=== PATIENT | female | born 1990 | race Caucasian/White ===

== ENCOUNTER 2022-12-25 07:33 | Outpatient (OUT) | payer OTHER, SELFPAY ==
[2022-12-25 10:50] LABS: Glucose 50 mg/dL (74-106)
== END 2022-12-25 07:34 ==
DX: E16.2 Hypoglycemia, unspecified (principal)
CPT/HCPCS: 36415; 82947

== ENCOUNTER 2023-03-15 08:14 | Emergency (ER) | payer OTHER, SELFPAY ==
[2023-03-15] VITALS (16 sets, daily range): BP systolic 120–134; BP diastolic 73–89; PULSE 96–176; RESP 12–29; TEMP 36.4; O2SAT 95–97; BMI 24.2
--- NOTE | 2023-03-15 08:28 | ECG_ITS ---
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
[2023-03-15] MEDS: LORAZEPAM 2 MG/ML 1 ML VIAL IV (08:46)
--- NOTE | 2023-03-15 09:00 | ED_ITS ---
HPI - General Adult General Chief complaint: Seizure Stated complaint: SEIZURE Time Seen by Provider: 03/15/23 08:16 Source: patient and other (Fiance) Source information: patient and fiance Mode of arrival: ambulance History of Present Illness HPI narrative: 32-year-old female with self-reported history of seizure to the emergency department with chief complaint of seizure episodes occurring this morning. Patient reports she has were breakthrough seizures. She takes Keppra 750 mg twice a day and intranasal medazepam as needed for seizures. Her fianc? helps provide history. He reports that this morning the patient seemed down and depressed like something was bothering her. She's been dealing with increased family stressors. The patient then began to have tensing movements of her body. She is brought to the emergency department for evaluation for seizure. She did not lose consciousness during these episodes. There is no shaking. She is able to ambulate during the episode. Her boyfriend reports that these happening with increasing frequency. They treated with her intranasal Midazolam but have run out. Related Data Home Medications Medication Instructions Recorded Confirmed acarbose 25 mg tablet 25 mg PO QDAY PRN hypoglycemia 03/15/23 03/15/23 amitriptyline 25 mg tablet 25 mg PO QDAY PRN nerve pain 03/15/23 03/15/23 cholecalciferol (vitamin D3) 10 2,000 unit PO QDAY 03/15/23 03/15/23 mcg (400 unit) tablet (Vitamin D3) dexmethylphenidate 20 mg 20 mg PO QDAY 03/15/23 03/15/23 capsule,extended release -64 fremanezumab-vfrm 225 mg/1.5 mL 225 mg subcut .qmonth 03/15/23 03/15/23 subcutaneous syringe (Ajovy Syringe) levetiracetam 500 mg tablet 750 mg PO Q12H 03/15/23 03/15/23 midazolam 5 mg/spray (0.1 mL) 1 spray intranasal BID PRN seizures 03/15/23 03/15/23 nasal spray (Nayzilam) Previous Rx's Medication Instructions Recorded midazolam 5 mg/spray (0.1 mL) 5 mg (0.1 mL) intranasal ONCE PRN 03/15/23 nasal spray (Nayzilam) Seizure #2 ea Allergies Allergy/AdvReac Type Severity Reaction Status Date / Time latex Allergy Intermediate Verified 03/15/23 08:34 NSAIDS (Non-Steroidal AdvReac Intermediate Verified 03/15/23 08:17 Anti-Inflamma Review of Systems ROS Status of ROS 10 or more systems reviewed and unremarkable except as noted in history and below [facility] Social History Smoking status: Former smoker Exam Narrative Exam Narrative: VITALS: I have reviewed the triage vital signs. GENERAL: Tearful adult female with tonic contractions at irregular frequency in the UE and LE. NEURO: Alert and oriented x4. Moves all extremities. Face is symmetric and expressive. Cranial nerves II through XII are grossly intact by testing. Motor strength is grossly intact bilaterally. Sensation is grossly intact in the upper and lower extremities bilaterally. EYES: PERRL. No scleral icterus or conjunctival injection. No discharge. HENT: Normocephalic, atraumatic. Hearing is grossly intact. Nares grossly patent and without discharge. Mucous membranes moist. NECK: No JVD. Patient moves neck without restriction. CARDIO: Rhythm regular. Normal rate. No murmur, rub, or gallop. Pulses equal bilaterally in the upper and lower extremity. No lower extremity edema. PULM: Lungs clear to auscultation in all farrell. No wheezes, rales, or rhonchi. No conversational dyspnea. No splinting, stridor, or accessory muscle use. GI/: Abdomen is soft and non-tender. Normoactive bowel sounds. EXTREMITIES: Symmetric muscle bulk. No joint swelling. No clubbing, cyanosis, or deformity. SKIN: Warm and dry. Normal turgor. No rash or lesions appreciated. PSYCH: Anxious, tearful Constitutional Vital Signs, click to edit/add: Last Vital Signs Temp 97.6 F 03/15/23 08:18 Pulse 113 H 03/15/23 09:30 Resp 24 03/15/23 09:30 BP 130/79 03/15/23 09:30 Pulse Ox 95 03/15/23 09:00 O2 Del Method Room Air 03/15/23 08:18 Course Vital Signs Vital signs: Vital Signs Temperature 97.6 F 03/15/23 08:18 Pulse Rate 124 H 03/15/23 08:18 Respiratory Rate 18 03/15/23 08:18 Pulse Oximetry 97 03/15/23 08:18 Oxygen Delivery Method Room Air 03/15/23 08:18 Temperature 97.6 F 03/15/23 08:18 Pulse Rate 113 H 03/15/23 09:30 Respiratory Rate 24 03/15/23 09:30 Blood Pressure 130/79 03/15/23 09:30 Pulse Oximetry 95 03/15/23 09:00 Oxygen Delivery Method Room Air 03/15/23 08:18 Medical Decision Making MDM Narrative Medical decision making narrative: MDM Data External documents reviewed: [facility] Neu[facility] Notes reviewed. OAR[facility] Report Reviewed. My EKG interpretation: As below My CT interpretation: Not applicable My X-ray interpretation: Not applicable My Ultrasound interpretation: Not applicable Decision rules/scores evaluated: Not applicable Discussed with: Not applicable Treatment and Disposition ED Course: 32-year-old female with reported history of seizures on Route to the emergency department with chief complaint of seizure-like activity. Vitals are stable, the patient is afebrile. Patient is witnessed to be having the seizure- like activity on my initial evaluation. Activity witnessed is not consistent with epilepsy seizures. Patient is able to answer questions appropriately is alert and oriented ?4 and is able to follow commands. When she is distracted the tensing movements ceased. I treated her anxiety/emotional distress with the episodes ceased. Basic labs to be ordered. She denies . Patient agrees with this plan. Christy? agrees with this plan. They asked for a refill of her Nayzilam. Blood work reviewed and noted. No major abnormalities. EKG without evidence of arrhythmia or ischemia. The patient rapidly returned to her baseline after the Ativan. She remained at her baseline throughout her Emergency Department stay. Again I do not think this represents an epileptic seizure. Discussed with the patient and her fianc?. She'll follow-up with her neurologist at [facility]. Refill given for rescue medication. Discussed seizure precautions at length. Discussed that she should not drive or operate machinery until cleared to do so by neurology given her self reported increase in seizures. Return precautions were discussed. All questions were answered. The patient was discharged home. Shared decision making: As above Code status: Not addressed during this visit Medical Records Medical records reviewed: Yes I reviewed the patient's medical records Lab Data Lab results reviewed: Yes I reviewed the patient's lab results Labs: Lab Results 03/15/23 03/15/23 Range/Units 08:30 09:25 WBC 8.0 (4.0-11.0) 10^3/uL RBC 4.74 (4.20-5.40) 10^6/uL Hgb 15.2 (12.0-16.0) g/dL Hct 45.5 (36.0-48.0) % MCV 96.0 (81.0-99.0) fL MCH 32.1 (26.7-34.0) pg MCHC 33.4 (29.9-35.2) g/dL RDW 12.5 (11.0-15.0) % Plt Count 169 (150-450) 10^3/uL MPV 11.6 (9.5-13.5) fL Neut % (Auto) 39.2 L (43.0-75.0) % Lymph % (Auto) 51.7 (20.5-60.0) % [place] % (Auto) 6.2 (1.7-12.0) % Eos % (Auto) 1.9 (0.9-7.0) % Baso % (Auto) 0.9 (0.2-2.0) % Neut # (Auto) 3.2 (1.4-6.5) 10^3/uL Lymph # (Auto) 4.2 H (1.2-3.8) 10^3/uL [place] # (Auto) 0.5 (0.3-0.8) 10^3/uL Eos # (Auto) 0.2 (0.0-0.7) 10^3/uL Baso # (Auto) 0.1 (0.0-0.1) 10^3/uL Abs Immat Gran (auto) 0.01 (0.00-0.03) 10^3/uL Imm/Tot Granulo (auto) 0.1 (0.0-0.5) % Sodium 137 (136-145) mmol/L Potassium 3.9 (3.5-5.1) mmol/L Chloride 102 (98-107) mmol/L Carbon Dioxide 27.5 (21.0-32.0) mmol/L Anion Gap 11.4 BUN 8.0 (7.0-18.0) mg/dL Creatinine 0.62 (0.55-1.02) mg/dL Est GFR ( Amer) >60 (>=60) Est GFR (Non-Af Amer) >60 (>=60) BUN/Creatinine Ratio 12.9 Glucose 89 (74-106) mg/dL Calcium 9.2 (8.5-10.1) mg/dL Magnesium 1.8 (1.8-2.4) mg/dL Total Bilirubin 0.4 (0.2-1.0) mg/dL AST 37 (15-37) U/L ALT 48 (14-59) U/L Alkaline Phosphatase 68 (46-116) U/L Total Protein 7.0 (6.4-8.2) g/dL Albumin 3.9 (3.4-5.0) g/dL Globulin 3.1 g/dL Albumin/Globulin Ratio 1.3 Urine Color Lt. yellow (YELLOW) Urine Clarity Clear (CLEAR) Urine pH 7.5 (5.0-9.0) Ur Specific [place] 1.010 (1.005-1.025) Urine Protein Negative (NEG/TRACE) mg/dL Urine Glucose (UA) Negative (NEGATIVE) mg/dL Urine Ketones Negative (NEGATIVE) mg/dL Urine Occult Blood Negative (NEGATIVE) Urine Nitrite Negative (NEGATIVE) Urine Bilirubin Negative (NEGATIVE) Urine Urobilinogen 0.2 (0.2-1.0) EU/dL Ur Leukocyte Esterase Negative (NEGATIVE) Urine Opiates Screen Negative (NEGATIVE) Ur Buprenorphine Scrn Negative (NEGATIVE) Ur Oxycodone Screen Negative (NEGATIVE) Urine Methadone Screen Negative (NEGATIVE) Ur Propoxyphene Screen Negative (NEGATIVE) Ur Barbiturates Screen Negative (NEGATIVE) U Tricyclic Antidepress Negative (NEGATIVE) Ur Phencyclidine Scrn Negative (NEGATIVE) Ur Amphetamines Screen Negative (NEGATIVE) U Methamphetamines Scrn Negative (NEGATIVE) U Benzodiazepines Scrn Negative (NEGATIVE) Urine Cocaine Screen Negative (NEGATIVE) U Cannabinoids Screen Negative (NEGATIVE) ECG Data Attestation: I personally reviewed and interpreted this ECG as follows: (Sinus tachycardia rate of 101. QTC normal. No ST segment changes.) Discharge Plan Discharge Chief Complaint: Seizure Clinical Impression: Generalized seizure Patient Disposition: Home, Self-Care Time of Disposition Decision: 09:58 Condition: Good Mode of Transportation: Private Vehicle Prescriptions / Home Meds: New Nayzilam 5 mg/spray (0.1 mL) spray,non-aerosol 5 mg intranasal ONCE MDD 2 doses PRN (Reason: Seizure) Qty: 2 1RF No Action acarbose 25 mg tablet 25 mg PO QDAY PRN (Reason: hypoglycemia) amitriptyline 25 mg tablet 25 mg PO QDAY PRN (Reason: nerve pain ) cholecalciferol (vitamin D3) [Vitamin D3] 10 mcg (400 unit) tablet 2,000 unit PO QDAY dexmethylphenidate 20 mg capsule,ER biphasic 50-50 20 mg PO QDAY Ajovy Syringe 225 mg/1.5 mL syringe 225 mg SUBCUT .qmonth levetiracetam 500 mg tablet 750 mg PO Q12H Nayzilam 5 mg/spray (0.1 mL) spray,non-aerosol 1 spray INTRANASAL BID PRN (Reason: seizures) Print Language: Romanian Instructions: Recurrent Seizures in Adults (ED) Additional Instructions: Call the office of your neurologist to arrange for follow-up. Discussed with them you're increasing frequency of seizure-like activity. Use your rescue medication as prescribed. Do not drive or operate heavy machinery until you are cleared by your neurologist. Avoid activity which could become dangerous if you suddenly lost consciousness such as bathing alone, swimming alone, climbing ladders etc. Stand Alone Forms: Portal Instructions Referrals: Physician,Non-Staff, MD [Primary Care Provider] - 1 week (YOUR NEUROLOGIST AT [facility])
[2023-03-15 09:08] LABS: Basophils Absolute Auto 0.1 10^3/uL (0.0-0.1); Basophils Percent Auto 0.9 % (0.2-2.0); Eosinophils Absolute Auto 0.2 10^3/uL (0.0-0.7); Eosinophils Percent Auto 1.9 % (0.9-7.0); Hematocrit 45.5 % (36.0-48.0); Hemoglobin 15.2 g/dL (12.0-16.0); Immature Granulocytes Abs Auto 0.01 10^3/uL (0.00-0.03); Immature Granulocytes Pct Auto 0.1 % (0.0-0.5); Lymphocytes Absolute Auto 4.2 10^3/uL (1.2-3.8); Lymphocytes Percent Auto 51.7 % (20.5-60.0); Mean Corpuscular HGB Conc 33.4 g/dL (29.9-35.2); Mean Corpuscular Hemoglobin 32.1 pg (26.7-34.0); Mean Platelet Volume 11.6 fL (9.5-13.5); Monocytes Absolute Auto 0.5 10^3/uL (0.3-0.8); Monocytes Percent Auto 6.2 % (1.7-12.0); Neutrophils Absolute Auto 3.2 10^3/uL (1.4-6.5); Neutrophils Percent Auto 39.2 % (43.0-75.0); Platelet Count 169 10^3/uL (150-450); Red Blood Count 4.74 10^6/uL (4.20-5.40); Red Cell Distribution Width 12.5 % (11.0-15.0)
[2023-03-15 09:30] LABS: Alanine Aminotransferase 48 U/L (14-59); Albumin Globulin Ratio 1.3; Albumin Level 3.9 g/dL (3.4-5.0); Alkaline Phosphatase 68 U/L (46-116); Anion Gap 11.4; Aspartate Amino Transferase 37 U/L (15-37); BUN Creatinine Ratio 12.9; Bilirubin Total 0.4 mg/dL (0.2-1.0); Calcium 9.2 mg/dL (8.5-10.1); Carbon Dioxide 27.5 mmol/L (21.0-32.0); Chloride 102 mmol/L (98-107); Estimated GFR (African America >60 (>=60); Estimated GFR (Non-African Ame >60 (>=60); Globulin 3.1 g/dL; Glucose 89 mg/dL (74-106); Magnesium 1.8 mg/dL (1.8-2.4); Potassium 3.9 mmol/L (3.5-5.1); Sodium 137 mmol/L (136-145)
[2023-03-15 09:31] LABS: Bilirubin Urine NEGATIVE (NEGATIVE); Blood Urine NEGATIVE (NEGATIVE); Clarity Urine CLEAR (CLEAR); Color Urine LT. YELLOW (YELLOW); Glucose Urine UA NEGATIVE (NEGATIVE); Ketones Urine NEGATIVE (NEGATIVE); Leukocyte Esterase Urine NEGATIVE (NEGATIVE); Nitrite Urine NEGATIVE (NEGATIVE); Protein Urine NEGATIVE (NEG/TRACE); Urobilinogen Urine 0.2 EU/dL (0.2-1.0); pH Urine 7.5 (5.0-9.0)
[2023-03-15 09:43] LABS: Amphetamine Screen Urine NEGATIVE (NEGATIVE); Benzodiazepines Screen Urine NEGATIVE (NEGATIVE); Cannabinoid Screen Urine NEGATIVE (NEGATIVE); Cocaine Screen Urine NEGATIVE (NEGATIVE); Methadone Screen Urine NEGATIVE (NEGATIVE); Methamphetamines Screen Urine NEGATIVE (NEGATIVE); Opiate Screen Urine NEGATIVE (NEGATIVE); Phencyclidine Screen Urine NEGATIVE (NEGATIVE); Tricyclic Antidepressant Urine NEGATIVE (NEGATIVE)
[2023-03-15 09:44] LABS: Barbiturates Screen Urine NEGATIVE (NEGATIVE); Buprenorphine Screen Urine NEGATIVE (NEGATIVE); Oxycodone Screen Urine NEGATIVE (NEGATIVE)
== END 2023-03-15 10:15 | disposition home or self-care (01) ==
PROVIDERS: Emergency Provider Student in an Organized Health Care Education/Training Program
DX: R56.9 Unspecified convulsions (principal); Z79.899 Other long term (current) drug therapy; Z87.891 Personal history of nicotine dependence
CPT/HCPCS: 36415; 80053; 80307; 81003; 83735; 85025; 93005; 96374; 99284

== ENCOUNTER 2023-05-05 14:05 | Emergency (ER) | payer OTHER, SELFPAY ==
[2023-05-05 14:19] VITALS: BP 125/80; PULSE 85; RESP 14; TEMP 37.1; O2SAT 95; BMI 24.9
[2023-05-05 14:23] VITALS: O2SAT 96
--- NOTE | 2023-05-05 15:10 | PC.NURSE ---
no resp distress observed
--- NOTE | 2023-05-05 15:13 | ED_ITS ---
HPI - URI/Sore Throat General Chief Complaint: Upper Respiratory Infection Stated Complaint: FLU LIKE SYMPTOMS Time Seen by Provider: 05/05/23 14:22 Source: patient History of Present Illness HPI Narrative: patient is a 32-year-old female presents to the emergency department for a two week history of cold symptoms. Patient states she has had nasal congestion, bilateral ear pain, body aches. She states in the last several days the congestion is moving into her chest with a productive cough. She has had no objective fevers, vomiting. She tested negative for Covid at home. sshe has been using hsyb-iei-vyolhjd medications without improvement. She is not concerned for . Related Data Home Medications Medication Instructions Recorded Confirmed acarbose 25 mg tablet 25 mg PO QDAY PRN hypoglycemia 03/15/23 03/15/23 amitriptyline 25 mg tablet 25 mg PO QDAY PRN nerve pain 03/15/23 03/15/23 cholecalciferol (vitamin D3) 10 2,000 unit PO QDAY 03/15/23 03/15/23 mcg (400 unit) tablet (Vitamin D3) dexmethylphenidate 20 mg 20 mg PO QDAY 03/15/23 03/15/23 capsule,extended release [id number] fremanezumab-vfrm 225 mg/1.5 mL 225 mg subcut .qmonth 03/15/23 03/15/23 subcutaneous syringe (Ajovy Syringe) levetiracetam 500 mg tablet 750 mg PO Q12H 03/15/23 03/15/23 midazolam 5 mg/spray (0.1 mL) 1 spray intranasal BID PRN seizures 03/15/23 03/15/23 nasal spray (Nayzilam) Previous Rx's Medication Instructions Recorded midazolam 5 mg/spray (0.1 mL) 5 mg (0.1 mL) intranasal ONCE PRN 03/15/23 nasal spray (Nayzilam) Seizure #2 ea azithromycin 250 mg tablet See Rx Instructions PO .COMPLEX #6 05/05/23 (Zithromax Z-Isaac) tabs qlgnrhsrygggqiy-cctssqsuhumyaei-RN 10 ml PO Q6H PRN cold symptoms 05/05/23 2 mg-30 mg-10 mg/5 mL oral syrup #200 mL (Bromfed DM) Allergies Allergy/AdvReac Type Severity Reaction Status Date / Time latex Allergy Intermediate Verified 03/15/23 08:34 NSAIDS (Non-Steroidal AdvReac Intermediate Verified 03/15/23 08:17 Anti-Inflamma Review of Systems ROS Constitutional Denies: fever or chills Ears, nose, mouth, and throat Reports: nasal congestion; Denies: throat pain Cardiovascular Denies: chest pain Respiratory Reports: cough and chest congestion; Denies: shortness of breath Gastrointestinal Denies: nausea or vomiting Musculoskeletal Denies: back pain Integumentary/Breast Denies: rash PFSH PFS Social History Smoking status: Former smoker Exam Narrative Exam Narrative: Gen.: Awake, alert, in no distress Head: Normocephalic, atraumatic ENT: Moist mucous membranes, bilateral tympanic membranes bulging with no erythema or injection Respiratory: No respiratory distress, lungs clear bilaterally; no wheezing or rhonchi Cardio: Regular rate and rhythm Extremities: Moves extremities equally Psych: Normal mood and affect Neuro: No focal neuro deficit Skin: Warm, dry, intact Constitutional Vital Signs, click to edit/add: Last Vital Signs Temp 98.8 F 05/05/23 14:19 Pulse 85 05/05/23 14:19 Resp 14 05/05/23 14:19 BP 125/80 05/05/23 14:19 Pulse Ox 96 05/05/23 14:23 O2 Del Method Room Air 05/05/23 15:10 Course Vital Signs Vital signs: Vital Signs Temperature 98.8 F 05/05/23 14:19 Pulse Rate 85 05/05/23 14:19 Respiratory Rate 14 05/05/23 14:19 Blood Pressure 125/80 05/05/23 14:19 Pulse Oximetry 95 05/05/23 14:19 Oxygen Delivery Method Room Air 05/05/23 14:19 Temperature 98.8 F 05/05/23 14:19 Pulse Rate 85 05/05/23 14:19 Respiratory Rate 14 05/05/23 14:19 Blood Pressure 125/80 05/05/23 14:19 Pulse Oximetry 96 05/05/23 14:23 Oxygen Delivery Method Room Air 05/05/23 15:10 MDM - URI/Sore Throat MDM Narrative Medical decision making narrative: patient declined another Covid test in the Emergency Room, no indication for chest x-ray at this time she has clear lung sounds and stable vital signs and will be treated with antibiotics based on the duration of her symptoms. Bromfed- DM and Z-Isaac given for home. Follow-up with PCP and return to the Emergency Room if symptoms change or worsen Medical Records Attestation: I reviewed the patient's medical records. Discharge Plan Discharge Chief Complaint: Upper Respiratory Infection Clinical Impression: Upper respiratory infection Patient Disposition: Home, Self-Care Time of Disposition Decision: 15:11 Condition: Good Prescriptions / Home Meds: New azithromycin [Zithromax Z-Isaac] 250 mg tablet See Rx Instructions .ROUTE .COMPLEX Qty: 6 0RF Rx Instructions: For 250 mg dose pack: take 500 mg today (day 1), then 250 mg for 4 days (days 2-5) pgtpgfewbcabjoa-pjmkhznsh-DJ [Bromfed DM] 2-30-10 mg/5 mL syrup 10 ml PO Q6H PRN (Reason: cold symptoms) Qty: 200 0RF No Action acarbose 25 mg tablet 25 mg PO QDAY PRN (Reason: hypoglycemia) amitriptyline 25 mg tablet 25 mg PO QDAY PRN (Reason: nerve pain ) cholecalciferol (vitamin D3) [Vitamin D3] 10 mcg (400 unit) tablet 2,000 unit PO QDAY dexmethylphenidate 20 mg capsule,ER biphasic 50-50 20 mg PO QDAY Ajovy Syringe 225 mg/1.5 mL syringe 225 mg SUBCUT .qmonth levetiracetam 500 mg tablet 750 mg PO Q12H Nayzilam 5 mg/spray (0.1 mL) spray,non-aerosol 1 spray INTRANASAL BID PRN (Reason: seizures) Nayzilam 5 mg/spray (0.1 mL) spray,non-aerosol 5 mg intranasal ONCE MDD 2 doses PRN (Reason: Seizure) Qty: 2 1RF Instructions: Upper Respiratory Infection (ED) Stand Alone Forms: Portal Instructions Referrals: Physician,Non-Staff, MD [Primary Care Provider] - 1 week
== END 2023-05-05 15:24 | disposition home or self-care (01) ==
PROVIDERS: Emergency Provider Emergency Medicine
DX: J06.9 Acute upper respiratory infection, unspecified (principal); Z79.899 Other long term (current) drug therapy; Z87.891 Personal history of nicotine dependence
CPT/HCPCS: 99283

== ENCOUNTER 2023-05-12 15:21 | Emergency (ER) | payer OTHER, SELFPAY ==
[2023-05-12 15:39] VITALS: BP 110/70; PULSE 88; RESP 20; TEMP 37.2; O2SAT 96; BMI 25.0
--- NOTE | 2023-05-12 15:53 | ED.URI1 ---
HPI - URI/Sore Throat General Chief Complaint: Upper Respiratory Infection Stated Complaint: flu like symptoms, seizure w/ hx Time Seen by Provider: 05/12/23 15:49 Source: patient Limitations: no limitations History of Present Illness HPI Narrative: patient is a 32-year-old female who returns to the emergency department for continued nasal drainage, sore throat. She was seen in this emergency department one week ago by myself, she is placed on a Z-Isaac and Bromfed-DM. She has had two weeks of symptoms total. She states when she started the medication she had improvement, but her symptoms have returned now. She reports postnasal drip causing a sore throat. She has had no fevers, vomiting. She reports body aches. No concern for . She has not followed up with her primary care provider at any point in her two week illness. Related Data Home Medications Medication Instructions Recorded Confirmed acarbose 25 mg tablet 25 mg PO QDAY PRN hypoglycemia 03/15/23 03/15/23 amitriptyline 25 mg tablet 25 mg PO QDAY PRN nerve pain 03/15/23 03/15/23 cholecalciferol (vitamin D3) 10 2,000 unit PO QDAY 03/15/23 03/15/23 mcg (400 unit) tablet (Vitamin D3) dexmethylphenidate 20 mg 20 mg PO QDAY 03/15/23 03/15/23 capsule,extended release [id number] fremanezumab-vfrm 225 mg/1.5 mL 225 mg subcut .qmonth 03/15/23 03/15/23 subcutaneous syringe (Ajovy Syringe) levetiracetam 500 mg tablet 750 mg PO Q12H 03/15/23 03/15/23 midazolam 5 mg/spray (0.1 mL) 1 spray intranasal BID PRN seizures 03/15/23 03/15/23 nasal spray (Nayzilam) Previous Rx's Medication Instructions Recorded midazolam 5 mg/spray (0.1 mL) 5 mg (0.1 mL) intranasal ONCE PRN 03/15/23 nasal spray (Nayzilam) Seizure #2 ea azithromycin 250 mg tablet See Rx Instructions PO .COMPLEX #6 05/05/23 (Zithromax Z-Isaac) tabs rgaqkipmvzrcsdr-zemlwylpvbbkhxh-BH 10 ml PO Q6H PRN cold symptoms 05/05/23 2 mg-30 mg-10 mg/5 mL oral syrup #200 mL (Bromfed DM) BMX solution 10 ml PO QID PRN sore throat #150 05/12/23 mL prednisone 20 mg tablet See Rx Instructions .Route 05/12/23 .COMPLEX #12 tabs Allergies Allergy/AdvReac Type Severity Reaction Status Date / Time latex Allergy Intermediate Verified 03/15/23 08:34 NSAIDS (Non-Steroidal AdvReac Intermediate Verified 03/15/23 08:17 Anti-Inflamma Review of Systems ROS Constitutional Denies: fever or chills Ears, nose, mouth, and throat Reports: throat pain, nasal congestion and post nasal drip Cardiovascular Denies: chest pain Respiratory Reports: cough; Denies: shortness of breath Gastrointestinal Denies: nausea, vomiting or diarrhea Musculoskeletal Denies: back pain Integumentary/Breast Denies: rash Neurological Denies: headache PFSH PFSH Social History Smoking status: Never smoker Exam Narrative Exam Narrative: Gen.: Awake, alert, in no distress Head: Normocephalic, atraumatic ENT: Moist mucous membranes, bilateral tympanic membranes clear. Cobblestoning noted in the posterrior pharynx with no pharyngeal erythema, airway widely open and patent. No trismus or drooling. Clear speech. Respiratory: No respiratory distress, lungs clear bilaterally Cardio: Regular rate and rhythm Extremities: Moves extremities equally Psych: Normal mood and affect Neuro: No focal neuro deficit Skin: Warm, dry, intact Constitutional Vital Signs, click to edit/add: Last Vital Signs Temp 99 F 05/12/23 15:39 Pulse 88 05/12/23 15:39 Resp 20 05/12/23 15:39 BP 110/70 05/12/23 15:39 Pulse Ox 96 05/12/23 15:39 O2 Del Method Room Air 05/12/23 15:39 Course Vital Signs Vital signs: Vital Signs Temperature 99 F 05/12/23 15:39 Pulse Rate 88 05/12/23 15:39 Respiratory Rate 20 05/12/23 15:39 Blood Pressure 110/70 05/12/23 15:39 Pulse Oximetry 96 05/12/23 15:39 Oxygen Delivery Method Room Air 05/12/23 15:39 Temperature 99 F 05/12/23 15:39 Pulse Rate 88 05/12/23 15:39 Respiratory Rate 20 05/12/23 15:39 Blood Pressure 110/70 05/12/23 15:39 Pulse Oximetry 96 05/12/23 15:39 Oxygen Delivery Method Room Air 05/12/23 15:39 MDM - URI/Sore Throat MDM Narrative Medical decision making narrative: mono screen is negative, Decadron given in the Emergency Room.no indication for further antibiotic therapy, patient will be placed on steroids for home. BMX solution given for comfort. Follow-up with PCP and return to the Emergency Room if symptoms change or worsen Medical Records Attestation: I reviewed the patient's medical records. Lab Data Attestation: I reviewed the patient's lab results. Labs: Lab Results 05/12/23 Range/Units 16:13 Monoscreen Negative (NEGATIVE) Discharge Plan Discharge Chief Complaint: Upper Respiratory Infection Clinical Impression: Upper respiratory infection Patient Disposition: Home, Self-Care Time of Disposition Decision: 16:58 Condition: Good Prescriptions / Home Meds: New BMX solution 10 ml PO QID PRN (Reason: sore throat) Qty: 150 0RF Rx Instructions: 1:1:1 solution of maalox, viscous lidocaine and benadryl; swish and swallow prednisone 20 mg tablet See Rx Instructions .ROUTE .COMPLEX Qty: 12 0RF Rx Instructions: 3 tabs daily for 2 days, then 2 tabs daily for 2 days, then 1 tab daily for 2 days No Action azithromycin [Zithromax Z-Isaac] 250 mg tablet See Rx Instructions .ROUTE .COMPLEX Qty: 6 0RF Rx Instructions: For 250 mg dose pack: take 500 mg today (day 1), then 250 mg for 4 days (days 2-5) ujxiapsitutzczj-wcwdyjrch-MH [Bromfed DM] 2-30-10 mg/5 mL syrup 10 ml PO Q6H PRN (Reason: cold symptoms) Qty: 200 0RF acarbose 25 mg tablet 25 mg PO QDAY PRN (Reason: hypoglycemia) amitriptyline 25 mg tablet 25 mg PO QDAY PRN (Reason: nerve pain ) cholecalciferol (vitamin D3) [Vitamin D3] 10 mcg (400 unit) tablet 2,000 unit PO QDAY dexmethylphenidate 20 mg capsule,ER biphasic 50-50 20 mg PO QDAY Ajovy Syringe 225 mg/1.5 mL syringe 225 mg SUBCUT .qmonth levetiracetam 500 mg tablet 750 mg PO Q12H Nayzilam 5 mg/spray (0.1 mL) spray,non-aerosol 1 spray INTRANASAL BID PRN (Reason: seizures) Nayzilam 5 mg/spray (0.1 mL) spray,non-aerosol 5 mg intranasal ONCE MDD 2 doses PRN (Reason: Seizure) Qty: 2 1RF Instructions: Pharyngitis (ED), Upper Respiratory Infection (ED) Stand Alone Forms: Portal Instructions Referrals: Physician,Non-Staff, MD [Primary Care Provider] - 1 week
[2023-05-12] MEDS: DEXAMETHASONE SOD PHOS 10 MG/ML VIAL PO (16:00)
[2023-05-12 16:43] LABS: Mono Screen NEGATIVE (NEGATIVE)
== END 2023-05-12 17:11 | disposition home or self-care (01) ==
PROVIDERS: Physician Assistant; Emergency Provider Emergency Medicine
DX: J06.9 Acute upper respiratory infection, unspecified (principal); Z79.899 Other long term (current) drug therapy
CPT/HCPCS: 86308; 99283; J1100

== ENCOUNTER 2023-06-25 06:20 | Emergency (ER) | payer OTHER, SELFPAY ==
[2023-06-25 06:22] VITALS: BP 118/67; PULSE 82; RESP 16; TEMP 36.6; O2SAT 96; BMI 25.0
[2023-06-25 06:27] VITALS: RESP 18
--- NOTE | 2023-06-25 06:34 | ED.EAR1 ---
HPI - Ear Problem General Chief complaint: Ear Stated complaint: ear pain Time Seen by Provider: 06/25/23 06:28 Source: patient Mode of arrival: walk-in Limitations: no limitations History of Present Illness HPI Narrative: 32-year-old female presents for right ear pain. She's had some cold symptoms recently but then she's had right ear pain and it got worse tonight. No drainage or trauma. She doesn't complain of left ear pain or sore throat. The pain is moderate and continuous. No history of fever Related Data Home Medications Medication Instructions Recorded Confirmed acarbose 25 mg tablet 25 mg PO QDAY PRN hypoglycemia 03/15/23 03/15/23 amitriptyline 25 mg tablet 25 mg PO QDAY PRN nerve pain 03/15/23 03/15/23 cholecalciferol (vitamin D3) 10 2,000 unit PO QDAY 03/15/23 03/15/23 mcg (400 unit) tablet (Vitamin D3) dexmethylphenidate 20 mg 20 mg PO QDAY 03/15/23 03/15/23 capsule,extended release [id number] fremanezumab-vfrm 225 mg/1.5 mL 225 mg subcut .qmonth 03/15/23 06/25/23 subcutaneous syringe (Ajovy Syringe) levetiracetam 500 mg tablet 750 mg PO Q12H 03/15/23 06/25/23 midazolam 5 mg/spray (0.1 mL) 1 spray intranasal BID PRN seizures 03/15/23 06/25/23 nasal spray (Nayzilam) Previous Rx's Medication Instructions Recorded midazolam 5 mg/spray (0.1 mL) 5 mg (0.1 mL) intranasal ONCE PRN 03/15/23 nasal spray (Nayzilam) Seizure #2 ea BMX solution 10 ml PO QID PRN sore throat #150 05/12/23 mL amoxicillin 500 mg capsule 500 mg PO TID 10 days #30 caps 06/25/23 loratadine 5 mg-pseudoephedrine ER 1 tab PO Q12H PRN nasal congestion 06/25/23 120 mg tablet,extended #20 tabs release,12hr (Claritin-D 12 Hour) Allergies Allergy/AdvReac Type Severity Reaction Status Date / Time latex Allergy Intermediate Verified 03/15/23 08:34 NSAIDS (Non-Steroidal AdvReac Intermediate Verified 03/15/23 08:17 Anti-Inflamma Review of Systems ROS Narrative A ten point review of systems is negative except as noted above. PFSH PFSH Social History Smoking status: Never smoker Exam Narrative Exam Narrative: Nurses note and vital signs reviewed and patient is not hypoxic. General: The patient appears well and in no apparent distress. Patient is resting comfortably on cart. Skin: Warm, dry, no pallor noted. There is no rash noted. Head: Normocephalic, atraumatic Eye: Normal conjunctiva, no drainage, EOMI. PERRL Ears, Nose, Mouth, and Throat: oral mucosa is moist. Nares patent. left tympanic membrane and external canal are normal. Right external canal is normal. The right tympanic membrane is dull with fluid present behind it. Tympanic membrane intact. Cardiovascular: Regular Rate and Rhythm Respiratory: Patient is in no distress, no accessory muscle use, lungs are clear to auscultation, no wheezing, rales or rhonchi Back: non-tender GI: soft and nontender Musculoskeletal: The patient has no evidence of calf tenderness, no pitting edema, symmetrical pulses noted bilaterally Neurological: A&O, normal speech Psychiatric: Cooperative Constitutional Vital Signs, click to edit/add: Last Vital Signs Temp 97.9 F 06/25/23 06:22 Pulse 82 06/25/23 06:22 Resp 18 06/25/23 06:27 BP 118/67 06/25/23 06:22 Pulse Ox 96 06/25/23 06:22 O2 Del Method Room Air 06/25/23 06:22 Course Vital Signs Vital signs: Vital Signs Temperature 97.9 F 06/25/23 06:22 Pulse Rate 82 06/25/23 06:22 Respiratory Rate 16 06/25/23 06:22 Blood Pressure 118/67 06/25/23 06:22 Pulse Oximetry 96 06/25/23 06:22 Oxygen Delivery Method Room Air 06/25/23 06:22 Temperature 97.9 F 06/25/23 06:22 Pulse Rate 82 06/25/23 06:22 Respiratory Rate 18 06/25/23 06:27 Blood Pressure 118/67 06/25/23 06:22 Pulse Oximetry 96 06/25/23 06:22 Oxygen Delivery Method Room Air 06/25/23 06:22 Medical Decision Making MDM Narrative Medical decision making narrative: my clinical impression is that she has otitis media. Treatment diagnosis and follow-up were discussed with the patient. Discharge Plan Discharge Chief Complaint: Ear Clinical Impression: Otitis media, right Patient Disposition: Home, Self-Care Time of Disposition Decision: 06:32 Condition: Good Mode of Transportation: Private Vehicle Prescriptions / Home Meds: New amoxicillin 500 mg capsule 500 mg PO TID 10 Days Qty: 30 0RF Claritin-D 12 Hour 5-120 mg tablet extended release 12 hr 1 tab PO Q12H PRN (Reason: nasal congestion) Qty: 20 0RF No Action acarbose 25 mg tablet 25 mg PO QDAY PRN (Reason: hypoglycemia) amitriptyline 25 mg tablet 25 mg PO QDAY PRN (Reason: nerve pain ) cholecalciferol (vitamin D3) [Vitamin D3] 10 mcg (400 unit) tablet 2,000 unit PO QDAY dexmethylphenidate 20 mg capsule,ER biphasic 50-50 20 mg PO QDAY Ajovy Syringe 225 mg/1.5 mL syringe 225 mg SUBCUT .qmonth levetiracetam 500 mg tablet 750 mg PO Q12H Nayzilam 5 mg/spray (0.1 mL) spray,non-aerosol 1 spray INTRANASAL BID PRN (Reason: seizures) Nayzilam 5 mg/spray (0.1 mL) spray,non-aerosol 5 mg intranasal ONCE MDD 2 doses PRN (Reason: Seizure) Qty: 2 1RF BMX solution 10 ml PO QID PRN (Reason: sore throat) Qty: 150 0RF Rx Instructions: 1:1:1 solution of maalox, viscous lidocaine and benadryl; swish and swallow Instructions: Ear Infection (ED) Stand Alone Forms: Portal Instructions Referrals: Physician,Non-Staff, MD [Primary Care Provider] - 1 week
== END 2023-06-25 06:40 | disposition home or self-care (01) ==
PROVIDERS: Emergency Provider Emergency Medicine
DX: H66.91 Otitis media, unspecified, right ear (principal); Z79.899 Other long term (current) drug therapy
CPT/HCPCS: 99283

== ENCOUNTER 2023-07-11 06:39 | Emergency (ER) | payer OTHER, SELFPAY ==
[2023-07-11 06:51] VITALS: BP 98/65; PULSE 62; RESP 16; TEMP 37; O2SAT 98; BMI 28.3
--- NOTE | 2023-07-11 07:06 | ED.GENADUL1 ---
HPI - General Adult General Chief complaint: Ear Stated complaint: ear infection Time Seen by Provider: 07/11/23 07:02 History of Present Illness HPI narrative: 32-year-old female to the emergency department to complain of right-sided ear pain. Patient reports recent upper respiratory infection. She now has severe right ear pain. She has a history of recurrent otitis media on that side for which she follows with ENT. She denies any fever, sweats, chills. Hearing is intact. Related Data Home Medications Medication Instructions Recorded Confirmed amitriptyline 25 mg tablet 25 mg PO QDAY PRN nerve pain 03/15/23 07/11/23 cholecalciferol (vitamin D3) 10 2,000 unit PO QDAY 03/15/23 07/11/23 mcg (400 unit) tablet (Vitamin D3) dexmethylphenidate 20 mg 20 mg PO QDAY 03/15/23 07/11/23 capsule,extended release [id number] fremanezumab-vfrm 225 mg/1.5 mL 225 mg subcut .qmonth 03/15/23 07/11/23 subcutaneous syringe (Ajovy Syringe) levetiracetam 500 mg tablet 750 mg PO Q12H 03/15/23 07/11/23 Previous Rx's Medication Instructions Recorded amoxicillin 875 mg-potassium 1 tab PO Q12H #14 tabs 07/11/23 clavulanate 125 mg tablet Allergies Allergy/AdvReac Type Severity Reaction Status Date / Time latex Allergy Intermediate Verified 07/11/23 06:53 NSAIDS (Non-Steroidal AdvReac Intermediate Verified 07/11/23 06:53 Anti-Inflamma Review of Systems ROS Status of ROS 10 or more systems reviewed and unremarkable except as noted in history and below [facility] Social History Smoking status: Never smoker Exam Narrative Exam Narrative: VITALS: I have reviewed the triage vital signs.? GENERAL: Well developed, well appearing adult in no acute distress.?? NEURO: Alert and oriented. Moves all extremities. Face is symmetric and expressive.? EYES: PERRL. No scleral icterus or conjunctival injection. No discharge.? HENT: Normocephalic, atraumatic. Hearing is grossly intact. Nares grossly patent and without discharge. Mucous membranes moist. Right tympanic membrane is bulging, erythematous. Left tympanic membrane within normal limits. Both canals within normal limits. NECK: No JVD. Patient moves neck without restriction.? EXTREMITIES: Symmetric muscle bulk. No joint swelling. No clubbing, cyanosis, or deformity.? SKIN: Warm and dry. Normal turgor. No rash or lesions appreciated.? PSYCH: Mood, affect, and interaction is appropriate to the setting. Constitutional Vital Signs, click to edit/add: Last Vital Signs Temp 98.6 F 07/11/23 06:51 Pulse 62 07/11/23 06:51 Resp 16 07/11/23 06:51 BP 98/65 07/11/23 06:51 Pulse Ox 98 07/11/23 06:51 O2 Del Method Room Air 07/11/23 06:51 Course Vital Signs Vital signs: Vital Signs Temperature 98.6 F 07/11/23 06:51 Pulse Rate 62 07/11/23 06:51 Respiratory Rate 16 07/11/23 06:51 Blood Pressure 98/65 07/11/23 06:51 Pulse Oximetry 98 07/11/23 06:51 Oxygen Delivery Method Room Air 07/11/23 06:51 Temperature 98.6 F 07/11/23 06:51 Pulse Rate 62 07/11/23 06:51 Respiratory Rate 16 07/11/23 06:51 Blood Pressure 98/65 07/11/23 06:51 Pulse Oximetry 98 07/11/23 06:51 Oxygen Delivery Method Room Air 07/11/23 06:51 Medical Decision Making [facility] Narrative Medical decision making narrative: 32-year-old female with obvious right-sided otitis media. Vitals stable, the patient is afebrile. No evidence of consultation. Augmentin. Follow-up with doctor. Discharge Plan Discharge Chief Complaint: Ear Clinical Impression: Otitis media, right Patient Disposition: Home, Self-Care Time of Disposition Decision: 07:05 Condition: Good Mode of Transportation: Private Vehicle Prescriptions / Home Meds: New amoxicillin-pot clavulanate 875-125 mg tablet 1 tab PO Q12H Qty: 14 0RF No Action amitriptyline 25 mg tablet 25 mg PO QDAY PRN (Reason: nerve pain ) cholecalciferol (vitamin D3) [Vitamin D3] 10 mcg (400 unit) tablet 2,000 unit PO QDAY dexmethylphenidate 20 mg capsule,ER biphasic 50-50 20 mg PO QDAY Ajovy Syringe 225 mg/1.5 mL syringe 225 mg SUBCUT .qmonth levetiracetam 500 mg tablet 750 mg PO Q12H Print Language: Spanish Instructions: Ear Infection (ED) Additional Instructions: Follow-up with your doctor this week to ensure resolution of symptoms with antibiotics. Stand Alone Forms: Portal Instructions Referrals: Physician,Non-Staff, MD [Primary Care Provider] - 1 week
[2023-07-11] MEDS: AMOXICILLIN/POTASSIUM CLAV 1 TAB TABLET PO (07:16)
== END 2023-07-11 07:19 | disposition home or self-care (01) ==
PROVIDERS: Emergency Provider Student in an Organized Health Care Education/Training Program
DX: H66.91 Otitis media, unspecified, right ear (principal); Z79.899 Other long term (current) drug therapy
CPT/HCPCS: 99283

== ENCOUNTER 2023-08-30 15:37 | Emergency (ER) | payer OTHER, SELFPAY ==
[2023-08-30 15:40] VITALS: BP 122/77; PULSE 98; RESP 20; TEMP 37.6; O2SAT 98; BMI 26.6
--- NOTE | 2023-08-30 15:54 | ED.BACK1 ---
HPI - Back Pain/Injury General Chief Complaint: Back Pain/Injury Stated Complaint: Back Pain Time Seen by Provider: 08/30/23 15:41 Source: patient Mode of arrival: walk-in Limitations: no limitations History of Present Illness HPI Narrative: Patient is a 32-year-old female who presents to the emergency department for increasing low back pain over the last several days. She denies any new mechanism of injury or trauma.She states she has a history of chronic neck and back pain. She was told she may need a cervical fusion, she was not instructed to have surgery on her low back. She reports some pain radiation into the right hip but has no pain radiation to the lower extremities, no peripheral paresthesias or urinary changes. She denies incontinence. She has had a previous hysterectomy. No medications taken prior to arrival. She is apparently allergic to NSAIDs. Related Data Home Medications Medication Instructions Recorded Confirmed amitriptyline 25 mg tablet 25 mg PO QDAY PRN nerve pain 03/15/23 07/11/23 cholecalciferol (vitamin D3) 10 2,000 unit PO QDAY 03/15/23 07/11/23 mcg (400 unit) tablet (Vitamin D3) dexmethylphenidate 20 mg 20 mg PO QDAY 03/15/23 07/11/23 capsule,extended release [id number] fremanezumab-vfrm 225 mg/1.5 mL 225 mg subcut .qmonth 03/15/23 07/11/23 subcutaneous syringe (Ajovy Syringe) levetiracetam 500 mg tablet 750 mg PO Q12H 03/15/23 07/11/23 Previous Rx's Medication Instructions Recorded amoxicillin 875 mg-potassium 1 tab PO Q12H #14 tabs 07/11/23 clavulanate 125 mg tablet methocarbamol 750 mg tablet 750 mg PO TID PRN pain #20 tabs 08/30/23 methylprednisolone 4 mg tablets in See Rx Instructions .Route 08/30/23 a dose pack (Medrol (Isaac)) .COMPLEX #21 ea Allergies Allergy/AdvReac Type Severity Reaction Status Date / Time latex Allergy Intermediate Verified 07/11/23 06:53 NSAIDS (Non-Steroidal AdvReac Intermediate Verified 07/11/23 06:53 Anti-Inflamma Review of Systems ROS Constitutional Denies: fever or chills Ears, nose, mouth, and throat Denies: throat pain or nasal congestion Cardiovascular Denies: chest pain Respiratory Denies: shortness of breath or cough Gastrointestinal Denies: nausea or vomiting Genitourinary Denies: painful urination, urinary frequency or urinary incontinence Musculoskeletal Reports: back pain; Denies: neck pain, extremity pain or extremity swelling Integumentary/Breast Denies: rash Neurological Denies: headache Endocrine Denies: excessive urination Hematologic/Lymphatic Denies: easy bruising or easy bleeding PFSH PFS Social History Smoking status: Never smoker Exam Narrative Exam Narrative: Gen.: Awake, alert, in no distress Head: Normocephalic, atraumatic ENT: Moist mucous membranes Respiratory: No respiratory distress Back: No bony point tenderness of the T-spine or lumbar spine. Diffuse tenderness of the midline spine and paraspinal muscles. No CVA tenderness. No obvious deformity or step-off Extremities: Moves extremities equally, no injuries noted; Normal dorsiflexion and plantarflexion of the lower extremities, no decrease in sensation to the medial thighs, normal hip flexion bilaterally Psych: Normal mood and affect Neuro: No focal neuro deficit Skin: Warm, dry, intact Constitutional Vital Signs, click to edit/add: Last Vital Signs Temp 99.6 F 08/30/23 15:40 Pulse 98 H 08/30/23 15:40 Resp 20 08/30/23 15:40 BP 122/77 08/30/23 15:40 Pulse Ox 98 08/30/23 15:40 Course Vital Signs Vital signs: Vital Signs Temperature 99.6 F 08/30/23 15:40 Pulse Rate 98 H 08/30/23 15:40 Respiratory Rate 20 08/30/23 15:40 Blood Pressure 122/77 08/30/23 15:40 Pulse Oximetry 98 08/30/23 15:40 Temperature 99.6 F 08/30/23 15:40 Pulse Rate 98 H 08/30/23 15:40 Respiratory Rate 20 08/30/23 15:40 Blood Pressure 122/77 08/30/23 15:40 Pulse Oximetry 98 08/30/23 15:40 MDM - Back Pain/Injury MDM Narrative Medical decision making narrative: Patient with no focal Neurodeficits in the ER. Exam is consistent with acute on chronic low back pain, no indication for imaging at this time. Patient treated with Mobridge, Norflex, Solu-Medrol in the ER and discharged home on a Medrol Dosepak and muscle relaxants. Return to the ER if symptoms change or worsen. Rest, ice, gentle stretching. Medical Records Attestation: I reviewed the patient's medical records. Discharge Plan Discharge Chief Complaint: Back Pain/Injury Clinical Impression: Lumbosacral strain Patient Disposition: Home, Self-Care Time of Disposition Decision: 15:51 Condition: Good Prescriptions / Home Meds: New methocarbamol 750 mg tablet 750 mg PO TID PRN (Reason: pain) Qty: 20 0RF methylprednisolone [Medrol (Isaac)] 4 mg tablets,dose pack See Rx Instructions .ROUTE .COMPLEX Qty: 21 0RF Rx Instructions: Taper as directed No Action amoxicillin-pot clavulanate 875-125 mg tablet 1 tab PO Q12H Qty: 14 0RF amitriptyline 25 mg tablet 25 mg PO QDAY PRN (Reason: nerve pain ) cholecalciferol (vitamin D3) [Vitamin D3] 10 mcg (400 unit) tablet 2,000 unit PO QDAY dexmethylphenidate 20 mg capsule,ER biphasic 50-50 20 mg PO QDAY Ajovy Syringe 225 mg/1.5 mL syringe 225 mg SUBCUT .qmonth levetiracetam 500 mg tablet 750 mg PO Q12H Instructions: Back Pain (ED) Stand Alone Forms: Portal Instructions Referrals: Physician,Non-Staff, MD [Primary Care Provider] - 1 week
[2023-08-30] MEDS: HYDROCODONE/ACET 5-325 MG TABLET 1 TAB PO (16:00)
[2023-08-30] MEDS: ORPHENADRINE 60 MG/ 2 ML VIAL IM (16:00)
[2023-08-30] MEDS: METHYLPREDNISOLONE SOD SUCC PF 125 MG/2 ML VIAL IM (16:01)
--- OUTSIDE RECORDS SUMMARY | 2023-08-30 16:12 | XMS_ITS | CCD ---
Author Name Unknown Address [address] [place] [address] Organization [facility] Care Team Providers Care Explosive Operator Grenade Name Role Phone Violet Ross Primary Care Provider TOBIAS HOGAN Attending Unavailable TATA REDDING Referring Unavailable VIOLET ROSS Primary Care Unavail able VENICE CABALLERO Attending Unavailable PABLO HARRISON Consulting Unavailable CANOS VIELKA GREENFIELD Consulting Unavaila ble VIOLET ROSS Primary Care Unavail able JEANNIE GARCIA Attending Unavailable JEANNIE GARCIA Admitting Unavailable JEANNIE GARCIA Consulting Unavailable JEANNIE GARCIA Admitting Unavailable JEANNIE GARCIA Attending Unavailable VIOLET ROSS Primary Care Unavail able None, Physician Primary Care Provider None, Physician Attending Provider Gi BYRNE, Priyanka Campos Attending Vicki ilable Unavailable Primary Care Provider Unavailabl e Cleemput Lorin CERON Primary Care Provider Cleemput Lorin CERON Primary Care Provider [phone] CLEEMPUTLORIN Primary Care Unavailable CLEEMPUTLORIN Primary Care Unavailable ALISSA GIBBS Referring Unavailable SANKET MEDINA Attending Unavailable Cleemput Lorin CERON Primary Care Provider [phone] Cleemput EMAIL MANAGER-MAIL PROCESSING ASSOCIATE, Lorin Shanti Primary Care Unavai lable Cleemput EMAIL MANAGER-MAIL PROCESSING ASSOCIATE, Lorin Shanti Primary Care Unavai lable Cleemput EMAIL MANAGER-MAIL PROCESSING ASSOCIATE, Lorin Shanti Attending Unavai lable Haroon DO, Anson Yi Attending Unavailab le Cleemput EMAIL MANAGER-MAIL PROCESSING ASSOCIATE, Lorin Shanti Primary Care Unavai lable Cleemput EMAIL MANAGER-MAIL PROCESSING ASSOCIATE, Lorin Shanti Primary Care Unavai lable Haroon DO, Anson Yi Attending Unavailab le Gayhart PA-C, Graciela Bartlett Attending Unavai lable Cleemput EMAIL MANAGER-MAIL PROCESSING ASSOCIATE, Lorin Shanti Primary Care Unavai lable Cleemput EMAIL MANAGER-MAIL PROCESSING ASSOCIATE, Lorin Shanti Primary Care Unavai lable Broschak DO, Greg Foster Referring Unavai lable Gayhart PA-C, Graciela Bartlett Attending Unavai lable Cleemput EMAIL MANAGER-MAIL PROCESSING ASSOCIATE, Lorin Shanti Primary Care Unavai lable DeVaul EMAIL MANAGER-MAIL PROCESSING ASSOCIATE, Radha Gilbert Attending Unav ailable Cleemput EMAIL MANAGER-MAIL PROCESSING ASSOCIATE, Lorin Shanti Primary Care Unavai lable Cleemput EMAIL MANAGER-MAIL PROCESSING ASSOCIATE, Lorin Moser Attending Unavai lable Cleemput EMAIL MANAGER-MAIL PROCESSING ASSOCIATE, Lorin Shanti Primary Care Unavai lable Cleemput EMAIL MANAGER-MAIL PROCESSING ASSOCIATE, Lorin Moser Primary Care Unavai lable Haroon DO, Anson Yi Attending Unavailab le Cleemput EMAIL MANAGER-MAIL PROCESSING ASSOCIATE, Lorin Shanti Primary Care Unavai lable Haroon DO, Anson Yi Attending Unavailab le Cleemput EMAIL MANAGER-MAIL PROCESSING ASSOCIATE, Lorin Shanti Primary Care Unavai lable Haroon DO, Anson Yi Attending Unavailab le Cleemput EMAIL MANAGER-MAIL PROCESSING ASSOCIATE, Lorin Shanti Primary Care Unavai lable Haroon DO, Anson Yi Attending Unavailab le Cleemput EMAIL MANAGER-MAIL PROCESSING ASSOCIATE, Lorin Shanti Primary Care Unavai lable Haroon DO, Anson Yi Attending Unavailab le Cleemput EMAIL MANAGER-MAIL PROCESSING ASSOCIATE, Lorin Moser Primary Care Unavai maximole Felipe Rushing Consulting Unavailabl e Haroon DO, Anson Yi Attending Unavailab le Cleemput EMAIL MANAGER-MAIL PROCESSING ASSOCIATE, Lorin Moser Primary Care Unavai lable Cleemput EMAIL MANAGER-MAIL PROCESSING ASSOCIATE, Lorin Moser Attending Unavai lable Cleemput EMAIL MANAGER-MAIL PROCESSING ASSOCIATE, Lorin Shanti Primary Care Unavai lable Cleemput EMAIL MANAGER-MAIL PROCESSING ASSOCIATE, Lorin Shanti Attending Unavai lable Cleemput EMAIL MANAGER-MAIL PROCESSING ASSOCIATE, Lorin Shanti Primary Care Unavai lable Cleemput EMAIL MANAGER-MAIL PROCESSING ASSOCIATE, Lorin Shanti Primary Care Unavai lable Cleemput EMAIL MANAGER-MAIL PROCESSING ASSOCIATE, Lorin Shanti Attending Unavai lable Cleemput EMAIL MANAGER-MAIL PROCESSING ASSOCIATE, Lorin Shanti Primary Care Unavai lable Cleemput EMAIL MANAGER-MAIL PROCESSING ASSOCIATE, Lorin Shanti Attending Unavai lable Cleemput EMAIL MANAGER-MAIL PROCESSING ASSOCIATE, Lorin Shanti Primary Care Unavai lable Cleemput EMAIL MANAGER-MAIL PROCESSING ASSOCIATE, Lorin Shanti Attending Unavai lable Cleemput EMAIL MANAGER-MAIL PROCESSING ASSOCIATE, Lorin Shanti Primary Care Unavai lable Althea LANGLEY, Greg Foster Attending Unavai lable Cleemput EMAIL MANAGER-MAIL PROCESSING ASSOCIATE, Lorin Shanti Primary Care Unavai lable Cleemput EMAIL MANAGER-MAIL PROCESSING ASSOCIATE, Lorin Shanti Attending Unavai lable Cleemput EMAIL MANAGER-MAIL PROCESSING ASSOCIATE, Lorin Shanti Primary Care Unavai lable Leslie PITTS, Opal Arshad Attending Unav ailable Cleemput EMAIL MANAGER-MAIL PROCESSING ASSOCIATE, Lorin Shanti Primary Care Unavai labmarbin Mast MD, Marlen Barron Attending Unava ilable Cleemput EMAIL MANAGER-MAIL PROCESSING ASSOCIATE, Lorin Shanti Attending Unavai lable Cleemput EMAIL MANAGER-MAIL PROCESSING ASSOCIATE, Lorin Shanti Primary Care Unavai lable Cleemput EMAIL MANAGER-MAIL PROCESSING ASSOCIATE, Lorin Shanti Primary Care Unavai lable Cleemput EMAIL MANAGER-MAIL PROCESSING ASSOCIATE, Lorin Shanti Attending Unavai lable Cleemput EMAIL MANAGER-MAIL PROCESSING ASSOCIATE, Lorin Shanti Primary Care Unajune Guzman MD, Yoni Bucio Attending Unavailable Cleemput EMAIL MANAGER-MAIL PROCESSING ASSOCIATE, Lorin Moser Primary Care Unavai DAVIS Gupta Attending Unavailable CONYZACCAROSU Attending Unavailab le MAT, SONIYA Attending Unavailable MAT, ARSLANEBLuke Attending Unavailable Unavailable Unavailable Unavailable Allergies Allergy Classification Reported Allergen(s) Allergy Type Date of Onset Reaction(s) Facility (11 sources) Latex; Translations: [Latex] Propensity to adverse reactions to drug 9 [facility] [employer] Phone: (12 sources) Vancomycin; Translations: [vancomycin] Drug Allergy 9 [employer] Phone: (1 source) No Known Medication Allergies; Translations: [No Known Medication Allergies] Propensity to adverse reactions to drug (disorder) [facility] Repository (6 sources) Diatrizoate Drug Allergy 2 [facility] Work Phone: (7 sources) Iodine; Translations: [iodine] Drug Allergy 2 [facility] (7 sources) NSAIDs; Translations: [NSAIDs] Propensity to adverse reactions to drug 2 [facility] (1 source) Latex Propensity to adverse reactions to drug 2 [facility] (1 source) Gluten; Translations: [Glutens] Propensity to adverse reactions to food (disorder) [facility] Repository (1 source) iodinated radiocontrast dyes; Translations: [iodinated radiocontrast dyes] Propensity to adverse reactions to drug (disorder) [facility] Repository (1 source) natural latex rubber; Translations: [LATEX, NATURAL RUBBER] Propensity to adverse reactions to drug (disorder) 5 [facility] Repository (1 source) NSAIDs; Translations: [NSAIDS (NON-STEROIDAL ANTI-INFLAMMATORY DRUG)] Propensity to adverse reactions to drug (disorder) 4 [facility] Repository Medications Current Medications Medication Drug Class(es) Dates Sig (Normalized) Sig (Original) acetaminophen 325 mg oral tablet (8 sources) Start: 12-09-2021 take 2 tablets by mouth every four hours as needed acetaminophen 325 MG tablet Take 2 tablets by mouth every 4 hours as needed. 0 12/09/2021 Active Start: 12-17-2019 take 1000 mg by mout h every eight hours, then take 4000 mg by mouth every twenty-four hours 1,000 mg, Oral, EVERY 8 HOURS, First dose on Tue12/17/19 at 1530 Maximum dose of acetaminophen is 4000 mg from all sources in 24 hours. Start: 12-17-2019 End: 12-18-2019 acetaminophen (OFIRMEV) infu marquis 1,000 mg acetaminophen 325 mg / butalbital 50 mg / caffeine 40 mg oral tablet (3 sources) Barbiturate, Central Nervous System Stimulant, Methylxanthine take 1 tablet by mouth every four hours as needed for headache zoribydnsg-hnbbqnnozuowg-wffwwnqj (FIORICET, ESGIC) 50-325-40 MG per tablet Take 1 tablet by mouth every 4 hours as needed for Headaches 0 Active amitriptyline hydrochloride 50 mg oral tablet (6 sources) Tricyclic Antidepressant Sta rt: 2 take 1.5 tablets by mouth at bedtime amitriptyline 50 MG tablet Take 1.5 tablets by mouth at bedtime. 45 tablet 0 12/09/2021 Active b complex vitamins capsule (3 sources) take 1 capsule by mouth once daily b complex vitamins capsule Take 1 capsule by mouth daily 0 Active take 1 capsule by mouth once aldo ly b complex vitamins capsule Take 1 capsule by mouth daily 0 Suspended calcium chloride 0.0014 meq/ ml / potassium chloride 0.004 meq/ml / sodium chloride 0.103 meq/ml / sodium lactate 0.028 meq/ml injectable solution (4 sources) Start: 01-04-2020 lactated ringe rs infusion Start: 12-15-2019 End: 12-17-2019 Intravenous, at 75 mL/hr, CO NTINUOUS, Starting 12/17/19 at 1500 Start: 07-23-2019 End: 07-23-2019 lactated ringers infusion 1, 000 mL cholecalciferol 400 unt oral tablet (3 sources) Vitamin D take 1 tablet by mouth once daily Cholecalciferol 400 UNIT TABS tablet Take 400 Units by mouth daily 0 Active ciprofloxacin 500 mg oral tablet (2 sources) Quinolone Antimicrobial Start : 07-23 End: 08-02 take 1 tablet by mouth twice daily ciprofloxacin (CIPRO) 500 MG tablet Take 1 tablet by mouth 2 times daily for 10 days 20 tablet 0 07/23/2019 08/02/2019 Active 24 hr dexmethylphenidate hydrochloride 20 mg extended release oral capsule (6 sources) Central Nervous System Stimulant Start : 11-16 take 1 capsule by mouth once daily Dexmethylphenidate HCl 20 MG Cap SR 24HR Take 20 mg by mouth daily. 0 11/16/2021 Active docusate sodium 100 mg oral capsule (3 sources) Start : 12-17 take 1 capsule by mouth twice daily as needed for constipation docusate sodium (COLACE) 100 MG capsule Take 1 capsule by mouth 2 times daily as needed for Constipation 60 capsule 0 12/18/2019 Active 0.4 ml enoxaparin sodium 100 mg/ml prefilled syringe (1 source) Low Molecular Weight Heparin Start : 12-15 inject 40 mg by subcutaneous injection once daily 40 mg, Subcutaneous, DAILY, First dose on 12/16/19 at 0900 famotidine 20 mg oral tablet (2 sources) Histamine-2 Receptor Antagonist Start : 12-17 famotidine (PEPCID) tablet 20 mg Start: 12-15-2019 End: 12-18-2019 20 mg, Intravenous, 2 TIMES DAILY, First dose on 12/15/19 at 2215 Administer over 2 minutes. 2 ml fentaNYL 0.05 mg/ml injection (2 sources) Opioid Agonist Start: 01-04-2020 fentaNYL (SUBL IMAZE) injection 50 mcg Start: 01-04-2020 fentaNYL (SUBL IMAZE) injection 25 mcg fluconazole 100 mg oral tablet (3 sources) Azole Antifungal Start: 07-29-2019 End: 08-05-2019 take 1 tablet by mouth once daily fluconazole (DIFLUCAN) 100 MG tablet Take 1 tablet by mouth daily for 7 days 7 tablet 0 07/29/2019 08/05/2019 Active Start: 07-23-2019 End: 07-23-2019 fluconazole (DIFLUCAN) table t 150 mg Start: 07-23-2019 End: 07-23-2019 take 1 tablet by mouth once fluconazole (DIFLUCAN) 150 MG tablet Take 1 tablet by mouth once for 1 dose Take if symptoms persist 1 tablet 0 07/23/2019 07/23/2019 Active FLUoxetine 20 mg oral capsule (3 sources) Serotonin Reuptake Inhibitor take 1 capsule by mouth twice daily FLUoxetine (PROZAC) 20 MG capsule Take 20 mg by mouth 2 times daily 0 Active 1.5 ml fremanezumab-vfrm 150 mg/ml prefilled syringe (10 sources) Start: 3 inject 225 mg by subcutaneous injection every 30 days Ajovy 225 MG/1.5ML Solution Prefilled Syringe Inject 225 mg under the skin every 30 days. 1.5 mL 2 03/24/2023 Active Start: 11-18-2022 End: 12-29-2022 inject 225 mg by subcutaneous injection every 30 days Ajovy 225 MG/1.5ML Solution Prefilled Syringe Inject 225 mg under the skin every 30 days. 1.5 mL 2 12/29/2022 Active Start: 11-12-2021 Ajovy 225 MG/1 .5ML Solution Prefilled Syringe gabapentin 300 mg oral capsule (6 sources) Anti-epileptic Agent Start: 07-09-2021 take 1 capsule by mouth twice daily gabapentin 300 MG capsule Take 300 mg by mouth 2 times daily. 0 07/09/2021 Active 1 ml hydrALAZINE hydrochloride 20 mg/ml injection (1 source) Arteriolar Vasodilator Start: 01-04-2020 hydrALAZINE (APRESOLINE) injection 5 mg levETIRAcetam 750 mg oral tablet (13 sources) Start: 03-09-2023 levETIRAcetam 750 MG tablet Take 2 tablet twice daily. 120 tablet 3 03/09/2023 Active Start: 12-08-2022 End: 02-06-2023 take 2 tablets by mouth twice daily levETIRAcetam 500 MG tablet Take 2 tablets by mouth 2 times daily. 60 tablet 3 12/08/2022 02/06/2023 Active Start: 04-26-2022 End: 06-25-2022 take 2 tablets by mouth twice daily levETIRAcetam 500 MG tablet Take 2 tablets by mouth 2 times daily. 60 tablet 3 04/26/2022 06/25/2022 Active Start: 12-16-2019 take 500 mg by mouth twice daily 500 mg, Oral, 2 TIMES DAILY, First dose on 12/16/19 at 2100 Do not crush or chew. take 1 tablet by ryan th twice daily levETIRAcetam (KEPPRA) 500 MG tablet Take 500 mg by mouth 2 times daily 0 Active melatonin 1 mg oral tablet (1 source) Start: 12-16-2019 melatonin tablet 3 mg methocarbamol 750 mg oral tablet (1 source) Muscle Relaxant Start: 12-17-2019 take 750 mg by mouth every six hours 750 mg, Oral, EVERY 6 HOURS, First dose on 12/17/19 at 1530 2 ml metoclopramide 5 mg/ml prefilled syringe (1 source) Dopamine-2 Receptor Antagonist Start: 01-04-2020 End: 01-04-2020 metoclopramide (REGLAN) injection 10 mg midazolam 50 mg/ml nasal spray (6 sources) Benzodiazepine Start: 02-28-2023 Nayzilam 5 MG/0.1ML Solution Indications: Focal epilepsy SPRAY 5MG BY NASAL ROUTE EVERY 24 HOURS NEEDED FOR SEIZURES 2 Each 1 02/28/2023 Active Start: 07-19-2022 Midazolam (Nay zilam) 5 MG/0.1ML Solution Indications: Focal epilepsy 5 mg by Nasal route Every 24 hours as needed for Seizures. 4 Each 1 07/19/2022 Active Start: 05-26-2022 Midazolam (Nay zilam) 5 MG/0.1ML Solution Indications: Focal epilepsy 5 mg by Nasal route Every 24 hours as needed for Seizures. 4 Each 1 05/26/2022 Active midodrine hydrochloride 10 mg oral tablet (10 sources) alpha-Adrenergic Agonist Start: 12-09-2021 take 1 tablet by mouth twice daily Midodrine HCl 10 MG tablet Take 1 tablet by mouth 2 times daily. 60 tablet 0 12/09/2021 Active Start: 12-16-2019 10 mg, Oral, 2 TIMES DAILY, First dose on 12/16/19 at 1730 Do not give after 1800 or within 4 hrs of bedtime. take 2 tablets by mo [facility] twice daily midodrine (PROAMATINE) 5 MG tablet Take 10 mg by mouth 2 times daily 0 Active Multiple Vitamins-Minerals (THERAPEUTIC MULTIVITAMIN-MINERALS) tablet (3 sources) take 1 tablet by mouth twice daily Multiple Vitamins-Minerals (THERAPEUTIC MULTIVITAMIN-MINERALS) tablet Take 1 tablet by mouth 2 times daily 0 Active take 1 tablet by mouth twice aldo ly Multiple Vitamins-Minerals (THERAPEUTIC MULTIVITAMIN-MINERALS) tablet Take 1 tablet by mouth 2 times daily 0 Suspended omeprazole 40 mg delayed release oral capsule (9 sources) Proton Pump Inhibitor Start: 03-02-2021 take 1 capsule by mouth once daily omeprazole [address] capsule Take 40 mg by mouth daily. 0 03/02/2021 Active take 1 capsule by mouth once aldo ly omeprazole (PRILOSEC) 20 MG delayed release capsule Take 20 mg by mouth daily 0 Active oxyCODONE hydrochloride 5 mg oral tablet (4 sources) Opioid Agonist Start: 12-18-2019 End: 12-21-2019 take 1 tablet by mouth every six hours as needed for pain oxyCODONE (ROXICODONE) 5 MG immediate release tablet Indications: S/P laparoscopic surgery Take 1 tablet by mouth every 6 hours as needed for Pain for up to 3 days. 12 tablet 0 12/18/2019 12/21/2019 Active Start: 12-17-2019 take 5 mg by mouth e very four hours as needed for pain 5 mg, Oral, EVERY 4 HOURS PRN, Pain Severe (7-10), Starting 12/17/19 at 1434 Start: 12-16-2019 End: 12-16-2019 oxyCODONE (ROXICODONE) immed iate release tablet 5 mg polyethylene glycol [id number] [id number] mg powder for oral solution (2 sources) Osmotic Laxative Start: 07-23-2019 End: 07-30-2019 take 17 g by mouth once daily as needed for constipation polyethylene glycol (MIRALAX) powder Take 17 g by mouth daily for 7 days PRN constipation 1 Bottle 0 07/23/2019 07/30/2019 Active promethazine hydrochloride 25 mg oral tablet (11 sources) Phenothiazine Start: 08-21-2021 take 1 tablet by mouth twice daily as needed for nausea promethazine 25 MG tablet Take 25 mg by mouth 2 times daily as needed for Nausea. 0 08/21/2021 Active Start: 12-26-2019 take 1 tablet by ryan every six hours as needed for nausea promethazine (PHENERGAN) 25 MG tablet Take 1 tablet by mouth every 6 hours as needed for Nausea 30 tablet 0 12/26/2019 Active Start: 12-17-2019 End: 12-17-2019 promethazine (PHENERGAN) inj ection 12.5 mg Start: 07-29-2019 End: 07-29-2019 promethazine (PHENERGAN) inj ection 12.5 mg Start: 07-29-2019 End: 08-05-2019 take 1 tablet by mouth four times daily as needed for nausea promethazine (PHENERGAN) 12.5 MG tablet Take 1 tablet by mouth 4 times daily as needed for Nausea 15 tablet 0 07/29/2019 08/05/2019 Active 3 ml sodium chloride 9 mg/ml injection (4 sources) Start: 12-15-2019 10 mL, Intrave nous, EVERY 12 HOURS SCHEDULED (2 times per day), First dose on 12/15/19 at 2215 Start: 12-15-2019 take 10 mL intraveno us route once as needed 10 mL, Intravenous, PRN, Line Care, After every IV line use, Starting 12/15/19 at 2145 Start: 07-29-2019 End: 07-29-2019 0.9 % sodium chloride bolus Start: 07-23-2019 End: 07-23-2019 0.9 % sodium chloride bolus sucralfate 1000 mg oral tablet (6 sources) Aluminum Complex Start: 12-26-2019 take 1 tablet by mouth four times daily sucralfate (CARAFATE) 1 GM tablet Take 1 tablet by mouth 4 times daily 120 tablet 3 12/26/2019 Active take 1 tablet by mouth twice aldo ly sucralfate (CARAFATE) 1 GM tablet Take 1 g by mouth 2 times daily 0 Suspended SUMAtriptan 50 mg oral tablet (6 sources) Serotonin-1b and Serotonin-1d Receptor Agonist take 1 tablet by mouth once as needed SUMAtriptan (IMITREX) 50 MG tablet Take 50 mg by mouth once as needed for Migraine 0 Active topiramate 100 mg oral tablet (12 sources) Start: 1 take 1 tablet by mouth twice daily topiramate 100 MG tablet Take 100 mg by mouth Twice daily. 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 15 tablet 0 12/09/2021 05/26/2022 Discontinued (Patient Preference) Start: 07-23-2019 End: 07-26-2019 oxyCODONE-acetaminophen (PER COCET) 5-325 MG per tablet Indications: Abscess, intra-abdominal, postoperative Take 1 tablet by mouth every 6 hours as needed for Pain for up to 3 days. Intended supply: 5 days. Take lowest dose possible to manage pain 12 tablet 0 07/23/2019 07/26/2019 Active amoxicillin 500 mg / clavulanate 125 mg oral tablet (2 sources) Penicillin-class Antibacterial End: 07-23-2019 take 1 tablet by mouth twice daily amoxicillin-clavulanate (AUGMENTIN) 500-125 MG per tablet Take 1 tablet by mouth 2 times daily 0 07/23/2019 Discontinued (LIST CLEANUP) atomoxetine 80 mg oral capsule (1 source) Norepinephrine Reuptake Inhibitor End: 05-26-2022 take 1 capsule by mouth once daily atomoxetine 80 MG capsule Take 80 mg by mouth daily. 0 05/26/2022 Discontinued B Complex Vitamins (Vitamin B Complex) tablet (1 source) End: 05-26-2022 take 1 tablet by mouth once daily B Complex Vitamins (Vitamin B Complex) tablet Take 1 tablet by mouth daily. 0 05/26/2022 Discontinued bumetanide 0.5 mg oral tablet (1 source) Loop Diuretic End: 05-26-2022 take 1 tablet by mouth once daily bumetanide 0.5 MG tablet Take 0.5 mg by mouth daily. 0 05/26/2022 Discontinued busPIRone hydrochloride 10 mg oral tablet (1 source) Start: 12-09-2021 End: 05-26-2022 take 1 tablet by mouth twice daily busPIRone 10 MG tablet Take 1 tablet by mouth 2 times daily. 60 tablet 0 12/09/2021 05/26/2022 Discontinued (Patient Preference) cyclobenzaprine hydrochloride 10 mg oral tablet (1 source) Muscle Relaxant Start: 10-27-2021 End: 05-26-2022 take 1 tablet by mouth three times daily cyclobenzaprine 10 MG tablet Take 10 mg by mouth 3 times daily. 0 10/27/2021 05/26/2022 Discontinued dicyclomine hydrochloride 10 mg oral capsule (1 source) Anticholinergic Start: 2021 End: 05-26-2022 take 1 capsule by mouth once daily dicyclomine 10 MG capsule Take 10 mg by mouth daily. 0 2021 05/26/2022 Discontinued 1 ml diphenhydrAMINE hydrochloride 50 mg/ml cartridge (9 sources) Histamine-1 Receptor Antagonist Start: 01-04-2020 End: 01-04-2020 diphenhydrAMINE (BENADRYL) injection 10 mg Start: 01-04-2020 End: 01-04-2020 diphenhydrAMINE (BENADRYL) 5 0 MG/ML injection Start: 12-17-2019 End: 12-17-2019 diphenhydrAMINE (BENADRYL) t ablet 12.5 mg Start: 12-17-2019 End: 12-17-2019 diphenhydrAMINE (BENADRYL) i njection 25 mg Start: 12-17-2019 End: 12-17-2019 diphenhydrAMINE (BENADRYL) i njection 12.5 mg Start: 12-15-2019 End: 12-15-2019 diphenhydrAMINE (BENADRYL) i njection 25 mg Start: 07-29-2019 End: 07-29-2019 diphenhydrAMINE (BENADRYL) i njection 25 mg Start: 07-23-2019 End: 07-23-2019 diphenhydrAMINE (BENADRYL) t ablet 25 mg Ethinyl Estradiol / Ferrous fumarate / Norethindrone (1 source) Estrogen Start: 08-18-2021 End: 05-26-2022 take 1 tablet by mouth once daily norethindrone-ethinyl estradiol-iron 1.5-30 MG-MCG tablet Take 1 tablet by mouth daily. 0 08/18/2021 05/26/2022 Discontinued 1 ml HYDROmorphone hydrochloride 1 mg/ml cartridge (1 source) Opioid Agonist Start: 12-17-2019 End: 12-17-2019 HYDROmorphone (DILAUDID) injection 0.5 mg Iohexol (1 source) Radiographic Contrast Agent Start: 12-15-2019 End: 12-15-2019 iohexol (OMNIPAQUE 350) solution 75 mL iohexol (OMNIPAQUE 240) injection 50 mL (1 source) Start: 12-15-2019 End: 12-15-2019 iohexol (OMNIPAQUE 240) injection 50 mL Iopamidol (2 sources) Radiographic Contrast Agent Start: 07-23-2019 End: 07-23-2019 iopamidol (ISOVUE-370) 76 % injection 9 mL Start: 07-23-2019 End: 07-23-2019 iopamidol (ISOVUE-370) 76 % injection 75 mL 1 ml ketorolac tromethamine 15 mg/ml cartridge (2 sources) Nonsteroidal Anti-inflammatory Drug, Cyclooxygenase Inhibitor Start: 12-15-2019 End: 12-15-2019 ketorolac (TORADOL) injection 15 mg Start: 07-29-2019 End: 07-29-2019 ketorolac (TORADOL) injectio n 15 mg lacosamide 50 mg oral tablet (1 source) Anti-epileptic Agent Start: 09-23-2021 End: 05-26-2022 take 1 tablet by mouth twice daily Vimpat 50 MG tablet Take 50 mg by mouth 2 times daily. 0 09/23/2021 05/26/2022 Discontinued Magnesium Oxide (1 source) Start: 12-09-2021 End: 05-26-2022 take 1 tablet by mouth twice daily magnesium oxide 400 (241.3 Mg) MG tablet Take 1 tablet by mouth 2 times daily. 60 tablet 0 12/09/2021 05/26/2022 Discontinued (Patient Preference) 100 ml metroNIDAZOLE 5 mg/ml injection (3 sources) Nitroimidazole Antimicrobial Start: 07-29-2019 End: 07-29-2019 metronidazole (FLAGYL) 500 mg in NaCl 100 mL IVPB premix Start: 07-23-2019 End: 08-02-2019 take 1 tablet by mouth twice daily at mealtime metroNIDAZOLE (FLAGYL) 500 MG tablet Take 1 tablet by mouth 2 times daily for 10 days Take with Food. Do NOT drink alcohol. 20 tablet 0 07/23/2019 08/02/2019 Active 1 ml morphine sulfate 4 mg/ml cartridge (3 sources) Opioid Agonist Start: 12-15-2019 End: 12-15-2019 morphine injection 2 mg Start: 07-23-2019 End: 07-23-2019 morphine (PF) injection 2 mg ondansetron 4 mg oral tablet (9 sources) Serotonin-3 Receptor Antagonist Start: 12-09-2021 End: 05-26-2022 take 1 tablet by mouth every eight hours as needed ondansetron 4 MG tablet Take 1 tablet by mouth every 8 hours as needed for Nausea / Vomiting. 30 tablet 0 12/09/2021 05/26/2022 Discontinued (Patient Preference) Start: 01-04-2020 End: 01-04-2020 ondansetron (ZOFRAN) injecti on 4 mg Start: 12-19-2019 End: 12-27-2019 take 1 tablet by mouth every four hours as needed for nausea ondansetron (ZOFRAN ODT) 4 MG disintegrating tablet Take 1 tablet by mouth every 4 hours as needed for Nausea 30 tablet 2 12/19/2019 12/27/2019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 (01/18/2022) MPJ Arthrodesis (Left) (01/18/2022) Removal Hardware Extremity Lower (Left, Foot) (01/18/2022) Medications Ajovy 225 mg/1.5 mL subcutaneous solution, 225 mg, Subcutaneous, qMonth, 5 refills amitriptyline 25 mg oral tablet, 25 mg= 1 tabs, Oral, HS (at bedtime) aspirin 325 mg oral capsule, 325 mg= 1 caps, Oral, Daily, Not taking cholestyramine 4 g/5 g oral powder for reconstitution, 1 packets, Oral, BID dexmethylphenidate 20 mg oral capsule, extended release, 20 mg= 1 caps, Oral, qAM fluticasone 50 mcg/inh nasal spray, 1 sprays, Nasal, Daily, 1 refills fluticasone 50 mcg/inh nasal spray, 1 sprays, Nasal, BID, PRN Glucometer, See Instructions Keppra 500 mg oral tablet, 1000 mg= 2 tabs, Oral, BID, 2 refills Keppra 500 mg oral tablet, 1000 mg= 2 tabs, Oral, BID, 2 refills, Not taking: Duplicate Lancets, See Instructions Lancing device, See Instructions midodrine 10 mg oral tablet, 10 mg= 1 tabs, Oral, BID, 1 refills multivitamin, 1 tablet, Oral, Daily omeprazole 40 mg oral delayed release capsule, 40 mg= 1 caps, Oral, BID Remeron 30 mg oral tablet, 30 mg= 1 tabs, Oral, HS (at bedtime) Test Strips, See Instructions, Investigating topiramate 100 mg oral tablet, 100 mg= 1 tabs, Oral, B (more content not included)... Normal [facility] Ferritinon 11-11-2022 Ferritin Lvl 35.7 ng/mL Normal 11.0-306.8 [facility] Comment on above: Performed By: #### F ERR ####[address] [address] Hep Bs Agon 11-11-2022 Hep Bs Ag Interp Non-Reactive Normal Non-Reactive [facility] Comment on above: Performed By: #### H BSAG ####[address] [address] Ironon 11-11-2022 Iron [Mass/Vol] 122 ug/dL Normal 28-170 [facility] Comment on above: Performed By: #### F E ####[address] [address] Lipid Panelon 11-11-2022 Cholesterol in LDL [Mass/Vol] 79 mg/dL Normal 0-99 [facility] Comment on above: Result Comment: The equation being used in this calculation is LDL = (Chol - HDL) - (Trig / 5) The optimal value of LDL for individual patients may vary. The patient's history of Artherosclerosis and other cardiac risk factors should be considered. Performed By: #### C BC #### [address] [address] Cardiac Risk 2.2 Normal [facility] Comment on above: Result Comment: Men Women 1/2 Average 3.43 3.27 Average 4.97 4.44 2x Average 9.55 7.05 3x Average 23.99 11.04 Performed By: #### C BC #### [address] [address] Cholesterol [Mass/Vol] 164 mg/dL Normal 25-199 [facility] Comment on above: Result Comment: 0 - 17 years of age: Desirable 0-170 Borderline High 170-199 High >=200 18 years and older: Acceptable <200 Borderline High 200-239 High >=240 Performed By: #### C BC #### [address] [address] Cholesterol in HDL [Mass/Vol] 73.8 mg/dL High 40.0-60.0 [facility] Comment on above: Performed By: #### C BC #### [address] [address] Cholesterol in VLDL [Mass/Vol] 11 mg/dL Normal 8-39 [facility] Comment on above: Performed By: #### C BC #### [address] [address] Triglyceride [Mass/Vol] 57 mg/dL Normal B [facility] Comment on above: Result Comment: 0 - 17 years of age: Trig 90 - 129 Borderline High Trig => 130 High 18 years and older: Trig 150 - 199 Borderline High Trig 200 - 499 High Trig =>500 Very High Performed By: #### C BC #### [address] [place] [address] Measles IgGon 11-11-2022 Measles IgG Ab 22.1 Normal [facility] Comment on above: Performed By: #### C BC #### [address] [place] [address] Measles IgG Ab Interp Positive Normal [facility] Comment on above: Result Comment: Pres ence of detectable measles virus IgG antibodies. A positive result generally indicates exposure to measles virus or previous vaccination. Performed By: #### C BC #### [address] [place] [address] Mumps IgGon 11-11-2022 Mumps IgG Ab 51.60 Normal [facility] Comment on above: Performed By: #### C BC #### [address] [place] [address] Mumps IgG Ab Interp Positive Normal [facility] Comment on above: Result Comment: Pres ence of detectable mumps virus IgG antibodies. A positive result generally indicates past exposure to mumps virus or previous vaccination. Performed By: #### C BC #### [address] [address] Rubella IgGon 11-11-2022 Rubella IgG Ab Interp Positive Normal [facility] Comment on above: Result Comment: The presence of detectable IgG-class antibodies indicates immunity to the rubella virus through prior immunization or exposure. Individuals testing reactive (positive) are considered immune to rubella infection. This result was obtained with the Access Rubella IgG EIA. Despite calibration by means of a reference preparation, values obtained with different rn heart's assay methods may not be used interchangeably. The magnitude of the reported IgG level CANNOT be correlated to an endpoint titer. Performed By: #### C BC #### [address] [address] VZV IgGon 11-11-2022 VZV IgG Ab 10.8 Normal [facility] Comment on above: Performed By: #### C [id number] ####[address] [address] VZV IgG Ab Interp Negative Normal [facility] Comment on above: Result Comment: Abse nce of detectable VZV IgG antibodies. A negative result indicates no detectable VZV antibody, but does not rule out acute infection. It should be noted that the test usually scores negative in infected patients during the incubation period and the early stages of infection. If exposure to varicella-zoster virus is suspected, despite a negative finding, a second sample should be collected and tested no less than one or two weeks later Performed By: #### C [id number] ####[address] [address] Vitamin D 25-Hydroxy Totalon 11-11-2022 Vitamin D 25-Hydroxy Total 43 ng/mL Normal 30-100 [facility] Comment on above: Result Comment: Elyse min D 25-Hydroxy Total Reference Range: Deficient: < 20 Insufficient: 20 to < 30 Sufficient: 30 - 100 Upper Safety Limit: > 100 Performed By: #### C [id number] #### [address] [address] Otolaryngology Office/Clinic Noteon 11-01-2022 Otolaryngology Office/Clinic Note Chief Complaint pt here for chronic ear pain in right ear History of Present Illness History of Present Illness HPI: pt states she is having chronic R ear pain. THis has been ongoing for a month. She will feel occassionally stabbing and the right ear always feel full. No drainage. She has been on 2 antibiotics with no relief Review of Systems General Adult ROS Fatigue: No Appetite change: No Other General: No Weakness: No Weight gain: No Weight Loss: No Cardiovascular Chest pain/pressure: No Claudication: No Edema: No Orthopnea: No Other Cardiovascular: No Palpitations: No Syncope: No EENMT Bleeding gums: No Dental pain: No Ear drainage: No Ear pain: Yes Facial pain: No Hearing loss: No Hoarseness: No Mouth lesions: No Nasal congestion: No Nasal discharge: No Nosebleeds: No Other EENMT: No Postnasal drainage: No Sore_throat: No Tinnitus: No Vision Changes: No Gastrointestinal Abdominal pain: No Constipation: No Diarrhea: No Dysphagia: No Fecal incontinence: No Heartburn: No Nausea: No Other GI: No Stools, black/bloody: No Vomiting: No Vomiting blood: No Genitourinary Decreased urine output: No Dysuria: No Frequency: No Genital irritation: No Hematuria: No Hesitancy: No Impaired urge sensation: No Other Genitourinary: No Polyuria: No Sexual dysfunction: No Urgency: No Urinary Incontinence: No Vaginal discharge: No Hematologic/Lymphati c Musculoskeletal Neurological Psychiatric Respiratory Apnea: No Cough: No Hemoptysis: No Other Respiratory: No Shortness_of_breath: No Snoring: No Sputum production: No Wheezing: No Skin Physical Exam Vitals & Measurements T: 36.8 ?C (Temporal Artery) HT: 165 cm WT: 63.6 kg WT: 63.6 kg (Dosing) BMI: 23.36 Overall:[Communicati on mode is clear, normal] [Appearance- no acute distress, appears stated age and is well nourished] Assistive device:[ none] Head:[normocephalic, no trauma, lesions or asymmetry] Ocular appearance:[ Conjuctiva- clear and bright, no drainage or infection. EOM intact] Ears:[ external ear- normal shape, no signs of infection, mass, lesion or asymmetry bilaterally. Ear canal is healthy, free from wax and infection, bilaterally] [Eardrum-healthy, no sign of infection, trauma, perforation or infection] [Middle ear- healthy, no obvious fluid present or infection] Nose:[ External- healthy, no sign of asymmetry, lesion or infection] Septum:[ Midline, no sign of perforation, infection or deviation] Turbinates:[ normal, no hypertrophy, mass or polyp] Nasal passages:[ clear, no infection, drainage or obstruction] Oral cavity:[ Normal, tongue healthy no mass, lesion or infection. Soft and hard palate normal. Bimanual palpation is normal. Mucosa moist, free from infection][ Benign gingiva, good dental hygiene][Tonsil size is normal, no asymmetry, mass or lesionn][oropharynx- clear, no evidence of post nasal drip, cobblestoning or other abnormalities] Neck:[ Salivary gland exam is normal, no enlargement or tenderness. No lymph node enlargement. TMJ exam is normal, no tenderness noted][ Thyroid exam is normal, no masses or tenderness] Mental Status:[Alert and oriented x3][Mood and affect normal][Gait is normal]. Additional Vitals No qualifying data available. Tympanogram: [neg pressure bilat] Audiogram:[ Word recognition is normal. Hearing is normal bilaterally. slight 10 db of conductive loss right] Assessment/Plan 1. Pressure sensation in right ear Pt has chronic right ear pressure with normal exam. Pt has mild ET issues with mild effect on hearing. Plan to treat with oral and nasal med to reduce ET inflammation. F/U in a month to assess response. Side effects of meds reviewed. PT to call if symptoms change or worsen in the interim 2. Eustachian tube dysfunction 3. Conductive hearing loss in left ear Pt has mild conductive loss, suspect this to resolve with treatment Orders: fluticasone nasal, 1 sprays, Nasal, Daily, # 16 g, 1 Refill(s), Pharmacy: [facility] [id number] predniSONE, 3 tabs, Oral, Daily, then 2 qam for 4days then 1 qam for 3 days, X 3 days, # 20 tabs, 0 Refill(s), 11/04/22 9:27:00 EDT, Pharmacy: [facility] [id number] Medical Decision Making Chronic conditions NOT treated during this visit that affected my overall medical decision making: [] Treatment plans discussed but not opted for at this time: [] Prescribed medication that requires intensive monitoring for toxicity: [] I have reviewed the patient?s medication list for medication interactions/contrai ndications and/or for upcoming procedures: [yes or no] Time Spent with the Patient I have personally spent [36] minutes on this date, directly related to today's patient visit, including pre and post visit work, for this date of service. Time listed does not include time spent on separately billable services. Problem List/Past Medical History Ongoing ADD (attention defici (more content not included)... Normal [facility] ED Clinical Summaryon 2022 ED Clinical Summary [address] [address] ED Clinical Summary Person Information [facility] Age: 32 Years : 1990 Sex: Female PCP: Lorin Alicia Marital Status: Single Phone: Race: White Ethnicity: Not or Language: Chinese Visit Reason: Ear pain; Ear drainage Acuity: 4 Enc Type: Emergency Med Service: Emergency Medicine Arrival: 2022 06:58:22 Discharge: 2022 07:35:00 LOS: 000 00:37 Checkin: 2022 06:58:22 Checkout: 2022 07:35:00 Dispo Type: Home or Self Care Address: [address] [place] [id number] Provider Notes: History of Present Illness 32-year-old female presents with right ear pain and pressure. ?States her symptoms have been going on for the past 2 weeks.? She was put on a course of amoxicillin and now is on a course of Keflex. ?States she continues to have the symptoms.? Denies any other real complaints.? No pain or her symptoms in her left ear. ?Denies any headache, dizziness or lightheadedness. ?No sore throat or congestion. ?No fevers.? She is scheduled to see her primary care physician at the end of October.? She has never seen an agricultural research technician in the past.? She has not noticed any bleeding or drainage from the ear. ?Patient has no other complaints at this time. Review of Systems As reviewed in the HPI. All other systems reviewed are negative or normal. Physical Exam CONSTITUTIONAL: [well appearing in no acute distress] SKIN: [Warm, dry, and intact without rash] EYES: [extraocular movements are grossly intact, clear conjunctiva] HENT: [Normocephalic, atraumatic, moist mucus membranes,?left tympanic membrane unremarkable, left external auditory canal unremarkable. ?Right tympanic membrane?bulging and fluid-filled, right?external auditory canal unremarkable with small piece of cotton NECK: [no obvious swelling, normal range of motion] PULMONARY: [normal chest rise and fall, no respiratory distress or stridor CARDIOVASCULAR: [regular rate, distal extremities are warm and well perfused] GASTROINSTESTINAL: [nondistended, non-tender] GENITOURINARY: [deferred] NEUROLOGIC: [normal speech, moves all extremities] MUSCULOSKELETAL: [no gross deformities, atraumatic] PSYCHIATRIC: [normal mood and affect] Diagnosis: 1:Otitis media with effusion Problems No Problems Documented Smoking Status: Smoking Status Never (less than 100 in lifetime) Functional Status: Sensory Deficits: History of Falls: Mobility Assistance Prior to Admission: ADLs: Current Level of Assistance for Self-Care/Mobility: Cognitive Status: Allergies iodinated radiocontrast dyes (Anaphylactic reaction) (GI Symptoms) iodine (unknown) Glutens (GI disturbance) Latex (Itching) NSAIDs (GI Disturbance) vancomycin (unknown) Laboratory or Other Results This Visit (last charted value for your 2022 visit) No Laboratory or Other Results This Visit Measurements: Height: Weight: 64.7 kg Blood Pressure: /70 mmHg BMI: Procedures No Procedures Documented Immunizations No Immunizations Documented This Visit Final Med List: New Medications [facility] [id number], [address] [place], [place] [id number], [phone] guaiFENesin (Mucinex 600 mg oral tablet, extended release) 1 Tabs Oral (given by mouth) every 12 hours for 7 Days. Refills: 0. Last Dose: Medications that have not changed Other Medications amitriptyline (amitriptyline 25 mg oral tablet) 1 Tabs Oral (given by mouth) once a day (at bedtime). Refills: 0. Last Dose: aspirin (aspirin 325 mg oral capsule) 1 Capsules Oral (given by mouth) every day for 14 Days. Refills: 0. Last Dose: cephalexin (cephalexin 500 mg oral capsule) 1 Capsules Oral (given by mouth) 2 times a day for 10 Days. Refills: 0. Last Dose: cholecalciferol (Vitamin D3 400 intl units oral tablet) 1 Tabs Oral (given by mouth) every day. Last Dose: cholestyramine (cholestyramine 4 g/5 g oral powder for reconstitution) 1 Packets Oral (given by mouth) 2 times a day. Refills: 0. Last Dose: ciprofloxacin-dexame thasone otic (Ciprodex 0.3%-0.1% otic suspension) 4 Drops Right ear 2 times a day for 7 Days. Refills: 0. Last Dose: dexmethylphenidate (dexmethylphenidate 20 mg oral capsule, extended release) 1 Capsules Oral (given by mouth) once a day (in the morning) for 30 Days. do not fill till 11-06-22. Refills: 0., last ov 12/01/21 Last Dose: fluticasone nasal (fluticasone 50 mcg/inh nasal spray) 1 Sprays Nasal (into the nose) 2 times a day as needed allergy symptoms. Last Dose: fremanezumab (Ajovy 225 mg/1.5 mL subcutaneous solution) 225 Milligram Subcutaneous (under the skin) once (more content not included)... Normal [facility] ED Note-Physicianon 10-25-19 ED Note-Physician History of Present Illness 32-year-old female presents with right ear pain and pressure. States her symptoms have been going on for the past 2 weeks. She was put on a course of amoxicillin and now is on a course of Keflex. States she continues to have the symptoms. Denies any other real complaints. No pain or her symptoms in her left ear. Denies any headache, dizziness or lightheadedness. No sore throat or congestion. No fevers. She is scheduled to see her primary care physician at the end of October. She has never seen an agricultural research technician in the past. She has not noticed any bleeding or drainage from the ear. Patient has no other complaints at this time. Review of Systems As reviewed in the HPI. All other systems reviewed are negative or normal. Physical Exam CONSTITUTIONAL: [well appearing in no acute distress] SKIN: [Warm, dry, and intact without rash] EYES: [extraocular movements are grossly intact, clear conjunctiva] HENT: [Normocephalic, atraumatic, moist mucus membranes, left tympanic membrane unremarkable, left external auditory canal unremarkable. Right tympanic membrane bulging and fluid-filled, right external auditory canal unremarkable with small piece of cotton NECK: [no obvious swelling, normal range of motion] PULMONARY: [normal chest rise and fall, no respiratory distress or stridor CARDIOVASCULAR: [regular rate, distal extremities are warm and well perfused] GASTROINSTESTINAL: [nondistended, non-tender] GENITOURINARY: [deferred] NEUROLOGIC: [normal speech, moves all extremities] MUSCULOSKELETAL: [no gross deformities, atraumatic] PSYCHIATRIC: [normal mood and affect] Vitals & Measurements T: 36.9 ?C (Oral) HR: 79 (Peripheral) RR: 18 BP: 104/70 SpO2: 100% HT: 165.1 cm WT: 64.7 kg (Dosing) Additional Vitals No qualifying data available. Procedure No qualifying data available. ASA Documentation Medical Decision Making Medical Decision Making This report has been created using voice recognition software. It may contain minor errors which are inherent in voice recognition technology. Initial MDM: After my bedside initial evaluation of the patient, based on history and physical examination, I believe that this may represent _otitis media, chronic otitis media. I have also considered _malignant otitis externa as potential differential diagnosis, among others, for this patient. I would like to order _symptomatic control which would help further evaluation for this work up. Patient is afebrile, nontoxic, normal vital signs. Not in acute distress. Her right tympanic membrane is slightly bulging with likely fluid. Does not seem acutely infected. Clinically I think this is most likely becoming more of a chronic issue for her. I recommended that she follow-up with her primary care physician and also ENT. Advised her to finish the course of Keflex that she is on. We will also do a dose of dexamethasone, start her on Mucinex as well. Advised to return at anytime symptoms worsen. She is agreeable plan will be discharged home today. [facility] Data Data Reviewed Tests: ordered and reviewed Decide to obtain previous medical records or to obtain history from someone other than the patient: Reviewed [employer] EMR to see if recent visits or hospitalizations. Review and summarized past medical records if pertinent and available in [employer]: _ Data Interpretation: My independent review and interpretation of lab. Clinically relevant interpretation _ External documents reviewed: _ My independent review and interpretation of the EKG _ My CT interpretation: _ My X-ray interpretation: _ My Ultrasound interpretation: _ Decision rules/scores evaluated: _ ? HEART Score: Not Completed ? PERC Rule: _ ? NEXUS C-spine Criteria: _ ? [place] Ankle Rule: _ ? [place] Knee Rule: _ ? Wells Criteria for DVT: _ ? Wells Criteria for PE: _ Discussed with: _ Treatment and Disposition ED Course / Patient Re-evaluation: Social determinants of health that impacts treatment or disposition _ Shared decision making _ Code Status and Discussions _ The results of pertinent diagnostic studies and exam findings supporting the discharge from the ED were discussed. The patient?s provisional diagnosis and plan of care were discussed with the patient and present family. The patient and/or present family expressed understanding of the diagnosis and plan. The nurse was instructed to provide written instructions and appropriate follow-up information. The patient understands their need and responsibility to obtain additional follow-up as instructed. Assessment/Plan 1. Otitis media with effusion Ordered: guaiFENesin, 1 tabs, Oral, q12hr, X 7 days, # 14 tabs, 0 Refill(s), 10/31/22 7:17:00 EDT, Pharmacy: [facility] [id number] Referral to ENT Orders: dexamethasone, 10 mg, Oral, Tab, Once, First Dose: 10/24/22 7:14:00 EDT, Stop Date: 10/24/22 7:14:00 EDT, STAT, Dispense From Location: [id number], 10/24/22 7:14:00 EDT (more content not included)... Normal [facility] ED Clinical Summaryon 2022 ED Clinical Summary [address] [address] ED Clinical Summary Person Information [facility]: [facility] Age: 31 Years : 1990 Sex: Female PCP: Lorin Alicia Marital Status: Single Phone: Race: White Ethnicity: Not or Language: Chinese Visit Reason: Ear pain; Ear drainage Acuity: 4 Enc Type: Emergency Med Service: Emergency Medicine Arrival: 10/18/2022 15:18:36 Discharge: 10/18/2022 15:39:00 LOS: 000 00:21 Checkin: 10/18/2022 15:18:36 Checkout: 10/18/2022 15:39:00 Dispo Type: Home or Self Care Address: [address] [place] [address] [place] [address] Provider Notes: History of Present Illness Patient is a 31 year old female presenting to the ED for evaluation of right ear pain. Patient reports she has had right ear pain for the past 6 days. She describes the pain as sharp and achy. She states she was [facility] for the pain and was?put on Amoxicillin, but it did not help. She also complains of?sinus drainage, and she reports she had had a sore throat?which is better now. ?She denies being exposed to wind or water,?denies any drainage from the ear, fever, vomiting, or diarrhea. Patient?is normally healthy and is not on any medications. She has not had any ear surgeries. Review of Systems GENERAL: [Negative for weakness, malaise, fever] EYES: [Negative for injury, pain, redness, discharge] ENT: [Positive for ear pain, sinus congestion. Negative for injury, pain , sore throat and discharge] NECK: [Negative for injury, pain, swelling, and stiffness] CARDIOVASCULAR: [Negative for chest pain, palpitations] RESPIRATORY: [Negative for shortness of breath, cough, wheezing, and pleuritic chest pain] ABDOMEN/GI: [Negative for pain, nausea, vomiting, diarrhea] BACK: [Negative for injury or bruising] : [Negative for injury, bleeding, discharge, frequency, hematuria, urgency] MUSCULOSKELETAL: [Negative for arthralgias, injury and deformity] SKIN: [Negative for injury, rash, discoloration] NEURO: [Negative for focal weakness, numbness, tingling, and seizure] Physical Exam CONSTITUTIONAL: [no apparent distress, well appearing] SKIN: [warm, dry, no jaundice, hives or petechiae] EYES: [pupils are equally round, extraocular movements intact without nystagmus, clear conjunctiva, non-icteric sclera] HENT: [2 pimples in ear canal which are infected, ear drum itself is also red, normocephalic, atraumatic, moist mucus membranes, oropharynx clear without exudates] NECK: [Nontender and supple with no nuchal rigidity, no lymphadenopathy, full range of motion] PULMONARY: [clear to auscultation without wheezes, rhonchi, or rales, normal excursion, no accessory muscle use and no stridor] CARDIOVASCULAR: [regular rate, rhythm, normal S1 and S2. No appreciated murmurs. Strong radial pulses with intact distal perfusion] GASTROINTESTINAL: [soft, non-tender, non-distended, no palpable masses, no rebound or guarding] GENITOURINARY: [No costovertebral angle tenderness to palpation] LYMPHATICS: [no edema in lower extremities, no lymphadenopathy] MUSCULOSKELETAL: [Extremities are nontender to palpation and have no gross deformity, no edema, redness, or swelling] NEUROLOGIC: [alert, normal mentation and speech. Moves all extremities x 4 without motor or sensory deficit] PSYCHIATRIC: [normal mood and affect, thought process is clear and linear] Reexamination/Reeval uation unchanged Diagnosis: 1:Otitis media, right Problems No Problems Documented Smoking Status: Smoking Status Never (less than 100 in lifetime) Functional Status: Sensory Deficits: History of Falls: Mobility Assistance Prior to Admission: ADLs: Current Level of Assistance for Self-Care/Mobility: Cognitive Status: Allergies iodinated radiocontrast dyes (Anaphylactic reaction) (GI Symptoms) iodine (unknown) Glutens (GI disturbance) Latex (Itching) NSAIDs (GI Disturbance) vancomycin (unknown) Laboratory or Other Results This Visit (last charted value for your 10/18/2022 visit) No Laboratory or Other Results This Visit Measurements: Height: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 Performed By: #### . Automated Diff #### [address] [address] Eosinophils/100 WBC (Bld) 1.3 % Normal 0.0-5.4 [facility] Comment on above: Performed By: #### . Automated Diff #### [address] [address] Lymph Absolute 5.2 x10*3/mcL High 1.0-4.8 [facility] Comment on above: Performed By: #### . Automated Diff #### [address] [address] Lymphocytes/100 WBC (Bld) 54.8 % High 27.2-40.8 [facility] Comment on above: Performed By: #### . Automated Diff #### [address] [address] Shannon Absolute 0.7 x10*3/mcL Normal 0.1-1.1 [facility] Comment on above: Performed By: #### . Automated Diff #### [address] [address] Monocytes/100 WBC (Bld) 7.3 % Normal 3.7-11.9 B [facility] Comment on above: Performed By: #### . Automated Diff #### [address] [address] Neutro Absolute 3.4 x10*3/mcL Normal 1.8-7.7 [facility] Comment on above: Performed By: #### . Automated Diff #### [address] [address] Neutro Auto 36.1 % Low 47.2-70.8 [facility] Comment on above: Performed By: #### . Automated Diff #### [address] [address] ED Clinical Summaryon 2020 ED Clinical Summary [address] [address] ED Clinical Summary Person Information Name: Rachid Mojica [place] Age: 30 Years : 1990 Sex: Female PCP: Marital Status: Phone: Race: White Ethnicity: Not or Language: Chinese Visit Reason: Abdominal pain; Abdominal pain Acuity: 3 Enc Type: Emergency Med Service: Emergency Medicine Arrival: 03/29/2021 11:50:50 Discharge: 03/29/2021 18:01:00 LOS: 000 06:11 Checkin: 03/29/2021 11:50:50 Checkout: 03/29/2021 18:01:00 Dispo Type: Home or Self Care Address: [address] [place] [address] Provider Notes: Diagnosis: 1:RLQ abdominal pain; 2:Endometriosis; 3:History of intussusception; 4:Terminal ileitis Problems No Problems Documented Smoking Status: Smoking Status 10 or more cigarettes (1/2 pack or more)/day in last 30 days Functional Status: Sensory Deficits: History of Falls: Mobility Assistance Prior to Admission: ADLs: Current Level of Assistance for Self-Care/Mobility: Cognitive Status: Allergies No Known Medication Allergies Laboratory or Other Results This Visit (last charted value for your 03/29/2021 visit) Hematology 03/29/2021 12:33 PM WBC: 9.5 x10 RBC: 4.75 x10 Neutro Auto: 36.1 % -- Normal range between ( 47.2 and 70.8 ) Lymph Auto: 54.8 % -- Normal range between ( 27.2 and 40.8 ) Shannon Auto: 7.3 % -- Normal range between ( 3.7 and 11.9 ) Eos Auto: 1.3 % -- Normal range between ( 0.0 and 5.4 ) Basophil Auto: 0.5 % -- Normal range between ( 0.0 and 1.5 ) Baso Absolute: 0.0 x10 MCV: 93.4 fL -- Normal range between ( 80.0 and 100.0 ) MCHC: 34.0 % -- Normal range between ( 31.0 and 37.0 ) Lymph Absolute: 5.2 x10 Hct: 44.4 % -- Normal range between ( 36.0 and 46.0 ) Shannon Absolute: 0.7 x10 MCH: 31.8 pg -- Normal range between ( 27.0 and 35.0 ) Neutro Absolute: 3.4 x10 Hgb: 15.1 g/dL -- Normal range between ( 12.0 and 16.0 ) Mean Platelet Volume: 8.7 fL -- Normal range between ( 6.7 and 10.6 ) Platelet: 190 x10 Eos Absolute: 0.1 x10 RDW: 12.9 % -- Normal range between ( 11.6 and 14.8 ) Urinalysis 03/29/2021 12:33 PM UA Color: Yellow UA Urobilinogen: Normal mg/dL UA Bili: Negative UA Ketones: Negative mg/dL UA Leukocyte Esterase: Negative UA Nitrite: Negative UA Glucose: Normal mg/dL UA Protein: 10 mg/dL UA Blood: Negative UA Spec Grav: 1.027 -- Normal range between ( 1.003 and 1.035 ) UA pH: 5.5 UA Clarity: Clear UA Source: Clean Catch UA Mucus: Present /LPF UA Hyline Cast Qual: 0-2 /LPF UA WBC Quant: 1 /HPF -- Normal range between ( 0 and 5 ) UA RBC Quant: 0 /HPF -- Normal range between ( 0 and 5 ) UA Squepi Cells Quant: 6 /HPF -- Normal range between ( 0 and 29 ) Chemistry 03/29/2021 12:33 PM Creatinine Lvl: 0.90 mg/dL -- Normal range between ( 0.44 and 1.03 ) BUN: 12 mg/dL -- Normal range between ( 8 and 26 ) Glucose Lvl: 90 mg/dL -- Normal range between ( 70 and 99 ) Potassium Lvl: 3.6 mmol/L -- Normal range between ( 3.4 and 4.8 ) CRP: <0.02 mg/dL -- Normal range between ( 0.00 and 0.75 ) AST: 26 IU/L -- Normal range between ( 15 and 41 ) ALT: 25 IU/L -- Normal range between ( 14 and 54 ) Sodium Lvl: 136 mmol/L -- Normal range between ( 133 and 142 ) Lipase Lvl: 29 IU/L -- Normal range between ( 22 and 51 ) Bili Indirect: 0.6 mg/dL -- Normal range between ( 0.0 and 1.0 ) Calcium Lvl: 8.9 mg/dL -- Normal range between ( 8.5 and 10.3 ) Albumin Lvl: 4.2 g/dL -- Normal range between ( 3.2 and 4.9 ) Total Protein: 7.3 g/dL -- Normal range between ( 6.5 and 8.1 ) Bili Total: 0.8 mg/dL -- Normal range between ( 0.3 and 1.2 ) Alk Phos: 48 IU/L -- Normal range between ( 32 and 91 ) Bili Direct: 0.2 mg/dL -- Normal range between ( 0.1 and 0.5 ) Chloride: 108 mmol/L -- Normal range between ( 98 and 110 ) CO2: 19 mmol/L -- Normal range between ( 22 and 32 ) Anion Gap: 13 -- Normal range between ( 7 and 17 ) eGFR Non-AA: >60 mL/min/1.73m? eGFR AA: >60 mL/min/1.73m? BUN Crea Ratio: 13.3 -- Normal range between ( 10.0 and 20.0 ) Computed Tomography 03/29/2021 4:[address] Abdomen Pelvis w/ IV Contrast: CT Abdomen Pelvis w/ IV Contrast Ultrasound 03/29/2021 2:39 PM US Transvaginal w/ Duplex: US Transvaginal w/ Duplex Measurements: Height: Weight: 71.3 kg Blood Pressure: /74 mmHg BMI: Procedures No Procedures Documented Immunizations No Immunizations Documented This Visit Final Med List: New Medications [address] [place], [place] [id number], [phone] hydrocodone-acetamin ophen (Blue 5 mg-325 mg oral tablet) 1 Tabs Oral (given by mouth) every 6 hours as needed as needed for pain for 3 Days. Refills: 0. Last Dose: ibuprofen (ibuprofen 800 mg oral tablet) 1 Tabs Oral (given by mouth) 3 times a day as needed for pain. Refills: 0. Last Dose: (more content not included)... Normal [facility] ED Note-Physicianon 03-29-20 ED Note-Physician Chief Complaint Right lower abdominal pain for 2 weeks. Consitent, worse at times, diarrhea as well. Hx surgery for intussuception. History of Present Illness Patient is a 30 year old female who presents to the ED for evaluation of RLQ abdominal pain onset 2 weeks ago. She states that the pain is constant but waxing and waning in intensity. The pain became worse today. She reports an occasional twisting pain in her LLQ as well. Patient complains of nausea and dizziness. Patient also reports occasional constipation and loose stools. She denies vomiting, hematuria, dysuria, vaginal bleeding or discharge, chest pain, or dyspnea. Patient has a history of endometriosis, ovarian cyst, seizures, and hypoglycemia. Patient had surgery for intussusception last year. Patient has also had a hysterectomy but still has both ovaries. Patient denies history of ovarian torsion. Patient's medications include Keppra, Topamax, Prozac, and Midodrine. Patient admits to vaping but denies smoking cigarettes, alcohol, or drug use. No other complaints at this time. Review of Systems GENERAL: [Positive for dizziness. Negative for weakness] EYES: [Negative for injury, pain, redness, discharge] ENT: [Negative for injury, pain , sore throat and discharge] NECK: [Negative for injury, pain, swelling, and stiffness] CARDIOVASCULAR: [Negative for chest pain, palpitations] RESPIRATORY: [Negative for shortness of breath, cough, wheezing, and pleuritic chest pain] ABDOMEN/GI: [Positive for pain, nausea, constipation, loose stools. Negative for vomiting] BACK: [Negative for injury or bruising] : [Negative for dysuria, injury, bleeding, discharge, frequency, hematuria, urgency] MUSCULOSKELETAL: [Negative for arthralgias, injury and deformity] SKIN: [Negative for injury, rash, discoloration] NEURO: [Negative for focal weakness, numbness, tingling, and seizure] Physical Exam CONSTITUTIONAL: [no apparent distress, well appearing] SKIN: [warm, dry, no jaundice, hives or petechiae] EYES: [pupils are equally round, extraocular movements intact without nystagmus, clear conjunctiva, non-icteric sclera] HENT: [normocephalic, atraumatic, moist mucus membranes, oropharynx clear without exudates] NECK: [Nontender and supple with no nuchal rigidity, no lymphadenopathy, full range of motion] PULMONARY: [clear to auscultation without wheezes, rhonchi, or rales, normal excursion, no accessory muscle use and no stridor] CARDIOVASCULAR: [regular rate, rhythm, normal S1 and S2. No appreciated murmurs. Strong radial pulses with intact distal perfusion] GASTROINTESTINAL: [RLQ tenderness, implanted glucose monitor in the left midabdomen, soft, non-distended, no palpable masses, no rebound or guarding] LYMPHATICS: [no edema in lower extremities, no lymphadenopathy] MUSCULOSKELETAL: [Extremities are nontender to palpation and have no gross deformity, no edema, redness, or swelling] NEUROLOGIC: [alert, normal mentation and speech. Moves all extremities x 4 without motor or sensory deficit] PSYCHIATRIC: [normal mood and affect, thought process is clear and linear] Vitals & Measurements T: 37 ?C (Oral) HR: 49 (Peripheral) RR: 16 BP: 116/76 SpO2: 95% HT: 165.1 cm WT: 71.3 kg (Dosing) Additional Vitals No qualifying data available. Procedure No qualifying data available. ASA Documentation Medical Decision Making Aundrea Lewis scribing for and in the presence of Dr. Angelo. Assessment/Plan Abdominal pain (Complaint of) Refresh vitals and sections below: Problem List/Past Medical History Ongoing No qualifying data Historical No qualifying data Medications Inpatient No active inpatient medications Home No active home medications Allergies No Known Medication Allergies Social History Alcohol Never Substance Abuse Denies All Tobacco 10 or more cigarettes (1/2 pack or more)/day in last 30 days Use:. Diagnostic Results XRay No qualifying data available (XRay) Computerized Tomagraphy No qualifying data available (CT) Ultrasound No qualifying data available (Ultrasound) Magnetic Resonance Imaging No qualifying data available (MRI) Aundrea Lewis Normal [facility] Hep Func Panelon 03-29-2021 Albumin [Mass/Vol] 4.2 g/dL Normal 3.2-4.9 [facility] Comment on above: Performed By: #### L IVER #### [facility] [address] [place] [address] Alk Phos 48 IU/L Normal 32-91 [facility] Comment on above: Performed By: #### L IVER #### [address] [address] ALT [Catalytic activity/Vol] 25 U/L Normal 14-54 [facility] Comment on above: Performed By: #### L IVER #### [address] [address] AST [Catalytic activity/Vol] 26 U/L Normal 15-41 [facility] Comment on above: Performed By: #### L IVER #### [address] [address] Bili Direct 0.2 mg/dL Normal 0.1-0.5 [facility] Comment on above: Performed By: #### L IVER #### [address] [address] Bili Indirect 0.6 mg/dL Normal 0.0-1.0 [facility] Comment on above: Performed By: #### L IVER #### [address] [address] Bili Total 0.8 mg/dL Normal 0.3-1.2 [facility] Comment on above: Performed By: #### L IVER #### [address] [address] Protein [Mass/Vol] 7.3 g/dL Normal 6.5-8.1 [facility] Comment on above: Performed By: #### L IVER #### [address] [address] Lipaseon 03-29-2021 Lipase Lvl 29 IU/L Normal 22-51 [facility] Comment on above: Performed By: #### L IP #### [address] [address] UA w Culture if Indon 2020 Color (U) Yellow Normal [facility] Comment on above: Performed By: #### U CI #### [address] [place] [address] Ketones Ql (U) Negative Normal Negative [facility] Comment on above: Performed By: #### U CI #### [facility] [address] [place] [address], [place] [address] UA Blood Negative Normal Negative [facility] Comment on above: Performed By: #### U CI #### [facility] [address] [place] [address], [place] [address] UA Clarity Clear Normal [facility] Comment on above: Performed By: #### U CI #### [facility] [address] [place] [address], [place] [address] UA Glucose Normal Normal Negative [facility] Comment on above: Performed By: #### U CI #### [address] [place] [address] UA Leukocyte Esterase Negative Normal Negative [facility] Comment on above: Performed By: #### U CI #### [address] [place] [address] UA Nitrite Negative Normal Negative [facility] Comment on above: Performed By: #### U CI #### [facility] [address] [place] [address], [place] [address] UA pH 5.5 Normal 4.5 - 7.8 [facility] Comment on above: Performed By: #### U CI #### [facility] [address] [place] [address], [place] [address] UA Protein 10 mg/dL Normal Negative [facility] Comment on above: Performed By: #### U CI #### [facility] [address] [place] [address], [place] [address] UA Source Clean Catch Normal [facility] Comment on above: Performed By: #### U CI #### [facility] [address] [place] [address], [place] [address] UA Spec Grav 1.027 Normal 1.003-1.035 [facility] Comment on above: Performed By: #### U CI #### [address] [place] [address] UA Urobilinogen Normal Normal 0.2 - 1.0 [facility] Comment on above: Performed By: #### U CI #### [facility] [address] [place] [address] Urobilinogen (U) [Mass/Vol] Negative Normal Negative [facility] Comment on above: Performed By: #### U CI #### [facility] [address] [place] [address] US Transvaginal w/ Duplexon 03-29-2021 US Transvaginal w/ Duplex EXAM: US Transvaginal w/ Duplex HISTORY: Pelvic Pain COMPARISON: None. TECHNIQUE: Transvaginal images FINDINGS: The uterus is not visualized consistent with hysterectomy The right ovary is normal in size, contour and echotexture measuring 3.3 x 2.6 x 2.3 cm. Normal color and Doppler flow. Subcentimeter areas of anechoic echogenicity, normal follicles. The left ovary is normal in size, contour and echotexture measuring 2.1 x 1.5 x 1.1 cm. Normal color and Doppler flow. Subcentimeter areas of anechoic echogenicity, normal follicles. No free fluid. IMPRESSION: Normal appearance of the ovaries without evidence of torsion Final Dictated by: Milton Llamas MD Dictated DT/TM: 03/29/2021 3:12 pm Signed by: Milton Llamas MD Signed (Electronic Signature): 03/29/2021 3:14 pm (If Report Is Signed, Electronically Signed in Other Vendor System) Normal [facility] Surgical Pathologyon 020 Surgical Pathology (NOTE) -- Diagnosis -- STOMACH, POUCH, BIOPSY: - MILD CHRONIC GASTRITIS. - NEGATIVE FOR HELICOBACTER PYLORI INFECTION. Carson Velez, Electronically Signed Out 01/07/2020 Clinical Information Pre-op Diagnosis: EPIGASTRIC PAIN Operative Findings: GASTRIC POUCH/ENDO/TM Operation Performed: EGD BIOPSY Source of Specimen 1: GASTRIC POUCH/ENDO/TM (A) Gross Description RACHID MOJICA, GASTRIC POUCH/ENDO/TM One oliva-white tissue fragment, 0.3 x 0.3 x 0.3 cm. Entirely 1cs. mpb tm Microscopic Description Mild chronic gastritis is present, with a small intramucosal lymphoid aggregate. There is no evidence of Helicobacter pylori infection, intestinal metaplasia, dysplasia or malignancy. SURGICAL PATHOLOGY CONSULTATION Patient Name: RACHID MOJICA [facility] Rec: [id number] Path Number: [id number] [facility] ANATOMIC PATHOLOGY [address] [facility]. [place], [place] [address] Normal [facility] Comment on above: Performed By: #### P PPVS #### [address] [id number] Pinball Machine Repairer: John Yancey MD COVID-19 Ambulatoryon 2019 SARS-CoV-2, MILLICENT Not Detected Not Detected [place], [place] Comment on above: (NOTE) This test was developed and its performance characteristics determined by [employer]. This test has not been FDA cleared or approved. This test has been authorized by [facility] under an Emergency Use Authorization (EUA). This test is only authorized for the duration of time the declaration that circumstances exist justifying the authorization of the emergency use of in vitro diagnostic tests for detection of SARS-CoV-2 virus and/or diagnosis of COVID-19 infection under section 564(b)(1) of the Act, 21 U.S.C. 360bbb-3(b)(1), unless the authorization is terminated or revoked sooner. When diagnostic testing is negative, the possibility of a false negative result should be considered in the context of a patient's recent exposures and the presence of clinical signs and symptoms consistent with COVID-19. An individual without symptoms of COVID-19 and who is not shedding SARS-CoV-2 virus would expect to have a negative (not detected) result in this assay. Performed At: [facility] [address] [facility], [place] [id number] Melly Butler MD Ph:[phone] [id number] 01-02-2020 SARS-CoV-2 Not Detected Normal Not Detected [facility] Comment on above: Result Comment: (NOT E) This test was developed and its performance characteristics determined by [employer]. This test has not been FDA cleared or approved. This test has been authorized by FDA under an Emergency Use Authorization (EUA). This test is only authorized for the duration of time the declaration that circumstances exist justifying the authorization of the emergency use of in vitro diagnostic tests for detection of SARS-CoV-2 virus and/or diagnosis of COVID-19 infection under section 564(b)(1) of the Act, 21 U.S.C. 360bbb-3(b)(1), unless the authorization is terminated or revoked sooner. When diagnostic testing is negative, the possibility of a false negative result should be considered in the context of a patient's recent exposures and the presence of clinical signs and symptoms consistent with COVID-19. An individual without symptoms of COVID-19 and who is not shedding SARS-CoV-2 virus would expect to have a negative (not detected) result in this assay. Performed At: [facility] [address] [facility] [place] [id number] Melly Butler MD Ph:[phone] Performed By: #### C DP, CP, LIP #### [facility] [address] [place] [address] [place] [address] Pinball Machine Repairer: Kd Page MD Basic Metab w/rfx MGon 12-15 (cont.) Normal [facility] Comment on above: Result Comment: Aver age GFR for 30-39 years old: 107 mL/min/1.73sq m Chronic Kidney Disease: <60 mL/min/1.73sq m Kidney failure: <15 mL/min/1.73sq m eGFR calculated using average adult body mass. Additional eGFR calculator available at: http://www.[employer]/multiple_crcl_2012.htm Performed By: #### C DP, BMPX #### [address] [address] Pinball Machine Repairer: John Yancey MD Anion gap [Moles/Vol] 13 mmol/L Normal 9-17 [facility] Comment on above: Performed By: #### C DP, BMPX #### [address] [address] [employer]ball Machine Repairer: John Yancey MD Calcium [Mass/Vol] 8.5 mg/dL Low 8.6-10.4 [facility] Comment on above: Performed By: #### C DP, BMPX #### [facility] [address] [place] [address] Pinball Machine Repairer: John Yancey MD Chloride [Moles/Vol] 103 mmol/L Normal 98-107 [facility] Comment on above: Performed By: #### C DP, BMPX #### [address] [address] [employer]ball Machine Repairer: John Yancey MD CO2 [Moles/Vol] 21 mmol/L Normal 20-31 [facility] Comment on above: Performed By: #### C DP, BMPX #### [address] [address] [employer]ball Machine Repairer: John Yancey MD Creatinine [Mass/Vol] 0.55 mg/dL Normal 0.50-0.90 [facility] Comment on above: Performed By: #### C DP, BMPX #### [address] [address] [employer]ball Machine Repairer: John Yancey MD GFR, Amer >60 Normal >60 [facility] Comment on above: Performed By: #### C DP, BMPX #### [address] [address] Pinball Machine Repairer: John Yancey MD GFR,non Amer >60 Normal >60 [facility] Comment on above: Performed By: #### C DP, BMPX #### [facility] [address] [place] [address] [employer]ball Machine Repairer: John Yancey MD Glucose [Mass/Vol] 83 mg/dL Normal 70-99 [facility] Comment on above: Performed By: #### C DP, BMPX #### [facility] [place] [address] Pinball Machine Repairer: John Yancey MD Potassium [Moles/Vol] 3.8 mmol/L Normal 3.7-5.3 [facility] Comment on above: Performed By: #### C DP, BMPX #### [facility] [address] [place] [phone] Pinball Machine Repairer: John Yancey MD Sodium [Moles/Vol] 137 mmol/L Normal 135-144 [facility] Comment on above: Performed By: #### C DP, BMPX #### [facility] [address] [place] [address] Pinball Machine Repairer: John Yancey MD Urea nitrogen [Mass/Vol] 9 mg/dL Normal 6-20 [facility] Comment on above: Performed By: #### C DP, BMPX #### [facility] [address] [place] [phone] Pinball Machine Repairer: John Yancey MD Staging: NOT REPORTED Normal [facility] Comment on above: Performed By: #### C DP, BMPX #### [facility] [address] [place] [address] [phone] Pinball Machine Repairer: John Yancey MD Bun/Cre Ratio NOT REPORTED Normal 9-20 [place], [place] Comment on above: Performed By: #### C DP, BMPX #### [facility] [address] [place] [address] [phone] Pinball Machine Repairer: John Yancey MD Basic Metabolic Panel w/ Ref devendra to [facility] 12-16-2019 Anion gap [Moles/Vol] 13 mmol/L 9 - 17 mmol/L [place] Calcium [Mass/Vol] 8.5 mg/dL Low 8.6 - 10. 4 mg/dL [place] Chloride [Moles/Vol] 103 mmol/L 98 - 10 7 mmol/L [place] CO2 [Moles/Vol] 21 mmol/L 20 - 31 mmol/L [place] Creatinine [Mass/Vol] 0.55 mg/dL 0.5 - 0.9 mg/dL [place] GFR >60 >60 mL/min [place] GFR Non- >60 >60 mL/min [place] GFR/1.73 sq M predicted among non-blacks MDRD (S/P/Bld) [Vol rate/Area] [place] Comment on above: Average GFR for 30-3 9 years old: 107 mL/min/1.73sq m Chronic Kidney Disease: <60 mL/min/1.73sq m Kidney failure: <15 mL/min/1.73sq m eGFR calculated using average adult body mass. Additional eGFR calculator available at: http://www.Hangtime/multiple_crcl_2012.htm GFR/1.73 sq M predicted among non-blacks MDRD (S/P/Bld) [Vol rate/Area] NOT REPORTED [place] Glucose [Mass/Vol] 83 mg/dL 70 - 99 mg/dL [place] Interpretation and review of laboratory results Abnormal [place] Potassium [Moles/Vol] 3.8 mmol/L 3.7 - 5.3 mmol/L [place] Sodium [Moles/Vol] 137 mmol/L 135 - 144 mmol/L [place] Urea nitrogen [Mass/Vol] 9 mg/dL 6 - 20 mg/dL [place] CBC auto differentialon - Basophils (Bld) [#/Vol] 0.05 10*3/uL [place] Basophils/100 WBC (Bld) 1 % 0 - 2 % M [place] Differential Type NOT REPORTED [place] Eosinophils (Bld) [#/Vol] 0.26 10*3/uL [place] Eosinophils/100 WBC (Bld) 5 % High 1 - 4 % [place] Erythrocyte distribution width (RBC) [Ratio] 12.2 % 11.8 - 14.4 % [place] Hematocrit (Bld) [Volume fraction] 41.6 % 36.3 - 47.1 % [place] Hemoglobin (Bld) [Mass/Vol] 13.5 g/dL 11.9 - 15.1 g/dL [place] Immature granulocytes (Bld) [#/Vol] 0 % 0 [place] Immature granulocytes (Bld) [#/Vol] 10*3/uL [place] Interpretation and review of laboratory results Abnormal [place] Lymphocytes (Bld) [#/Vol] 2.38 10*3/uL [place] Lymphocytes/100 WBC (Bld) 41 % 24 - 43 % [place] MCH (RBC) [Entitic mass] 31.0 pg 25.2 - 33.5 pg [place] MCHC (RBC) [Mass/Vol] 32.5 g/dL 28.4 - 34.8 g/dL [place] MCV (RBC) [Entitic vol] 95.4 fL 82.6 - 102.9 fL [place] Monocytes (Bld) [#/Vol] 0.51 10*3/uL [place] Monocytes/100 WBC (Bld) 9 % 3 - 12 % [place] Platelet mean volume (Bld) [Entitic vol] 10.6 fL 8.1 - 13.5 fL [place] Platelets (Bld) [#/Vol] 154 10*3/uL [place] RBC (Bld) [#/Vol] 4.36 10*6/uL 3.95 - 5.1 1 m/uL [place] Segmented neutrophils/100 WBC (Bld) 44 % 36 - 65 % [place] Segs Absolute 2.54 [place] WBC (Bld) [#/Vol] 0.0 10*3/uL 0.0 per 10 0 WBC [place] WBC (Bld) [#/Vol] 5.8 10*3/uL [place] CBC with Diffon 12-16-2019 Abs. Basophil 0.05 k/uL Normal 0.00-0.20 [facility] Comment on above: Performed By: #### C DP, BMPX #### [place] [address] Pinball Machine Repairer: John Yancey MD Abs.Imm.Granulocyte <0.03 Normal 0.00-0.30 [facility] Comment on above: Performed By: #### C DP, BMPX #### [place] [address] Pinball Machine Repairer: John Yancey MD Abs.Neutrophil (Seg) 2.54 k/uL Normal 1.50-8.10 [facility] Comment on above: Performed By: #### C DP, BMPX #### [place] [address] Pinball Machine Repairer: John Yancey MD Basophils/100 WBC (Bld) 1 % Normal 0-2 [facility] Comment on above: Performed By: #### C DP, BMPX #### [place] [address] Pinball Machine Repairer: John Yancey MD Eosinophils (Bld) [#/Vol] 0.26 10*3/uL Normal 0.00-0.44 [facility] Comment on above: Performed By: #### C DP, BMPX #### [place] [address] Pinball Machine Repairer: John Yancey MD Eosinophils/100 WBC (Bld) 5 % High 1-4 [facility] Comment on above: Performed By: #### C DP, BMPX #### [place] [address] Pinball Machine Repairer: John Yancey MD Erythrocyte distribution width (RBC) [Ratio] 12.2 % Normal 11.8-14.4 [facility] Comment on above: Performed By: #### C DP, BMPX #### [facility] [address] [place] [address] [phone] Pinball Machine Repairer: John Yancey MD Hematocrit (Bld) [Volume fraction] 41.6 % Normal 36.3-47.1 [facility] Comment on above: Performed By: #### C DP, BMPX #### [facility] [address] [place] [address] Pinball Machine Repairer: John Yancey MD Hemoglobin (Bld) [Mass/Vol] 13.5 g/dL Normal 11.9-15.1 [facility] Comment on above: Performed By: #### C DP, BMPX #### [facility] [address] [place] [phone] Pinball Machine Repairer: John Yancey MD Immature granulocytes (Bld) [#/Vol] 0 % Normal 0 [facility] Comment on above: Performed By: #### C DP, BMPX #### [facility] [address] [place] [address] Pinball Machine Repairer: John Yancey MD Lymphocytes (Bld) [#/Vol] 2.38 10*3/uL Normal 1.10-3.70 [facility] Comment on above: Performed By: #### C DP, BMPX #### [facility] [address] [place] [address] Pinball Machine Repairer: John Yancey MD Lymphocytes/100 WBC (Bld) 41 % Normal 24-43 [facility] Comment on above: Performed By: #### C DP, BMPX #### [facility] [address] [place] [address] 29918 Pinball Machine Repairer: John Yancey MD MCH (RBC) [Entitic mass] 31.0 pg Normal 25.2-33.5 [facility] Comment on above: Performed By: #### C DP, BMPX #### [address] [address] Pinball Machine Repairer: John Yancey MD MCHC (RBC) [Mass/Vol] 32.5 g/dL Normal 28.4-34.8 [facility] Comment on above: Performed By: #### C DP, BMPX #### [address] [address] Pinball Machine Repairer: John Yancey MD MCV (RBC) [Entitic vol] 95.4 fL Normal 82.6-102.9 [facility] Comment on above: Performed By: #### C DP, BMPX #### [address] [address] Pinball Machine Repairer: John Yancey MD Monocytes (Bld) [#/Vol] 0.51 10*3/uL Normal 0.10-1.20 [facility] Comment on above: Performed By: #### C DP, BMPX #### [address] [address] Pinball Machine Repairer: John Yancey MD Monocytes/100 WBC (Bld) 9 % Normal 3-12 [facility] Comment on above: Performed By: #### C DP, BMPX #### [address] [address] Pinball Machine Repairer: John Yancey MD Neutrophil (Seg) 44 % Normal 36-65 [facility] Comment on above: Performed By: #### C DP, BMPX #### [address] [address] Pinball Machine Repairer: John Yancey MD NRBC Automated 0.0 per 100 WBC Normal 0.0 [facility] Comment on above: Performed By: #### C DP, BMPX #### [address] [address] Pinball Machine Repairer: John Yancey MD Platelet mean volume (Bld) [Entitic vol] 10.6 fL Normal 8.1-13.5 [facility] Comment on above: Performed By: #### C DP, BMPX #### [address] [address] Pinball Machine Repairer: John Yancey MD Platelets (Bld) [#/Vol] 154 10*3/uL Normal 138-453 [facility] Comment on above: Performed By: #### C DP, BMPX #### [address] [address] Pinball Machine Repairer: John Yancey MD RBC (Bld) [#/Vol] 4.36 10*6/uL Normal 3.95-5.11 [facility] Comment on above: Performed By: #### C DP, BMPX #### [address] [address] Pinball Machine Repairer: John Yancey MD WBC (Bld) [#/Vol] 5.8 10*3/uL Normal 3.5-11.3 [facility] Comment on above: Performed By: #### C DP, BMPX #### [address] [address] Pinball Machine Repairer: John Yancey MD Auto Diff Performed NOT REPORTED Normal [facility] Comment on above: Performed By: #### C DP, BMPX #### [address] [address] Pinball Machine Repairer: John Yancey MD Platelets (Bld) [#/Vol] NOT REPORTED Normal [facility] [employer] Comment on above: Performed By: #### C DP, BMPX #### [address] [address] Pinball Machine Repairer: John Yancey MD RBC morphology finding Nom (Bld) NOT REPORTED Normal [facility] [employer] [facility] Comment on above: Performed By: #### C DP, BMPX #### [address] [phone] Pinball Machine Repairer: John Yancey MD WBC Morphology NOT REPORTED Normal [place] Comment on above: Performed By: #### C DP, BMPX #### [address] [id number] Pinball Machine Repairer: John Yancey MD COVID-19on 12-16-2019 SARS-CoV-2 Not Detected Not Detected [place] Comment on above: The specimen is NEGATIVE for SARS-CoV-2, the novel coronavirus associated with COVID-19. A negative result does not rule out COVID-19. This test has been authorized by the FDA under an Emergency Use Authorization (EUA) for use by authorized laboratories. Fact sheet for Healthcare Providers: https://www.fda.gov/media/514979/download Fact sheet for Patients: https://www.fda.gov/media/700742/download METHODOLOGY: RT-PCR SARS-CoV-2, PCR [place] SARS-CoV-2, Rapid [place] Source .NASOPHARYNGEAL SWAB [place] [id number] 12-16-2019 SARS-CoV-2 Normal [facility] Comment on above: Performed By: #### C OVID #### [address] [id number] Pinball Machine Repairer: John Yancey MD SARS-CoV-2,Rapid [facility] Comment on above: Performed By: #### C OVID #### [address] [id number] Pinball Machine Repairer: John Yancey MD SARS-CoV-2 Not Detected Normal NOTDET [facility] Comment on above: Result Comment: The specimen is NEGATIVE for SARS-CoV-2, the novel coronavirus associated with COVID-19. A negative result does not rule out COVID-19. This test has been authorized by the FDA under an Emergency Use Authorization (EUA) for use by authorized laboratories. Fact sheet for Healthcare Providers: https://www.fda.gov/media/972309/download Fact sheet for Patients: https://www.fda.gov/media/073995/download METHODOLOGY: RT-PCR Performed By: #### C OVID #### [employer] [facility] [place] [address] Pinball Machine Repairer: John Yancey MD XR ABDOMEN (KUB) (SINGLE AP VIEW)on 12-16-2019 XR ABDOMEN (KUB) (SINGLE AP VIEW) EXAMINATION: ONE SUPINE XRAY VIEW(S) OF THE ABDOMEN 12/16/2019 7:07 am COMPARISON: CT abdomen and pelvis December 15, 2019. HISTORY: ORDERING SYSTEM PROVIDED HISTORY: evaluation of contrast progression after CT abd/pelv w/ PO contrast. Intussception sb. TECHNOLOGIST PROVIDED HISTORY: evaluation of contrast progression after CT abd/pelv w/ PO contrast. Intussception sb. FINDINGS: Oral contrast is seen throughout the colon. Nonspecific bowel gas pattern. Air is seen within the rectum. No free air. No suspicious calcifications. Post cholecystectomy clips. Additional clips is seen within the epigastric region. Osseous structures demonstrate no acute findings. IMPRESSION: No acute intra-abdominal process. Oral contrast is seen throughout the colon. Interpreted by: Shaggy Vail Jr., DO Signed by: Shaggy Vail Jr., DO 12/16/19 Final result Normal [facility] EXAMINATION: ONE SUPINE XRAY VIEW(S) OF THE ABDOMEN 12/16/2019 7:07 am COMPARISON: CT abdomen and pelvis December 15, 2019. HISTORY: ORDERING SYSTEM PROVIDED HISTORY: evaluation of contrast progression after CT abd/pelv w/ PO contrast. Intussception sb. TECHNOLOGIST PROVIDED HISTORY: evaluation of contrast progression after CT abd/pelv w/ PO contrast. Intussception sb. FINDINGS: Oral contrast is seen throughout the colon. Nonspecific bowel gas pattern. Air is seen within the rectum. No free air. No suspicious calcifications. Post cholecystectomy clips. Additional clips is seen within the epigastric region. Osseous structures demonstrate no acute findings. [facility], [place] No acute intra-abdominal process. Oral contrast is seen throughout the colon. [facility], [place] Incoming Radiant Results From [facility] - 12/16/2019 7:26 AM EDT EXAMINATION: ONE SUPINE XRAY VIEW(S) OF THE ABDOMEN 12/16/2019 7:07 am COMPARISON: CT abdomen and pelvis December 15, 2019. HISTORY: ORDERING SYSTEM PROVIDED HISTORY: evaluation of contrast progression after CT abd/pelv w/ PO contrast. Intussception sb. TECHNOLOGIST PROVIDED HISTORY: evaluation of contrast progression after CT abd/pelv w/ PO contrast. Intussception sb. FINDINGS: Oral contrast is seen throughout the colon. Nonspecific bowel gas pattern. Air is seen within the rectum. No free air. No suspicious calcifications. Post cholecystectomy clips. Additional clips is seen within the epigastric region. Osseous structures demonstrate no acute findings. IMPRESSION: No acute intra-abdominal process. Oral contrast is seen throughout the colon. [place] CBC WITH AUTO DIFFERENTIALon 12-15-2019 Basophils (Bld) [#/Vol] 0.06 10*3/uL [place] Basophils/100 WBC (Bld) 1 % 0 - 2 % M [place] Differential Type NOT REPORTED [place] Eosinophils (Bld) [#/Vol] 0.24 10*3/uL [place] Eosinophils/100 WBC (Bld) 4 % 1 - 4 % [place] Erythrocyte distribution width (RBC) [Ratio] 12.5 % 11.8 - 14.4 % [place] Hematocrit (Bld) [Volume fraction] 45.7 % 36.3 - 47.1 % [place] Hemoglobin (Bld) [Mass/Vol] 14.5 g/dL 11.9 - 15.1 g/dL [place] Immature granulocytes (Bld) [#/Vol] 0 % 0 [place] Immature granulocytes (Bld) [#/Vol] 10*3/uL [place] Lymphocytes (Bld) [#/Vol] 2.47 10*3/uL [place] Lymphocytes/100 WBC (Bld) 37 % 24 - 43 % [place] MCH (RBC) [Entitic mass] 30.4 pg 25.2 - 33.5 pg [place] MCHC (RBC) [Mass/Vol] 31.7 g/dL 28.4 - 34.8 g/dL [place] MCV (RBC) [Entitic vol] 95.8 fL 82.6 - 102.9 fL [place] Monocytes (Bld) [#/Vol] 0.52 10*3/uL [place] Monocytes/100 WBC (Bld) 8 % 3 - 12 % [place] Platelet mean volume (Bld) [Entitic vol] 10.8 fL 8.1 - 13.5 fL [place] Platelets (Bld) [#/Vol] NOT REPORTED [place] Platelets (Bld) [#/Vol] 176 10*3/uL [place] RBC (Bld) [#/Vol] 4.77 10*6/uL 3.95 - 5.1 1 m/uL [place] RBC morphology finding Nom (Bld) NOT REPORTED [place] Segmented neutrophils/100 WBC (Bld) 50 % 36 - 65 % [place] Segs Absolute 3.38 [place] WBC (Bld) [#/Vol] 0.0 10*3/uL 0.0 per 10 0 WBC [place] WBC (Bld) [#/Vol] 6.7 10*3/uL [place] WBC Morphology NOT REPORTED [place] CBC with Diffon 12-15-2019 Abs. Basophil 0.06 k/uL Normal 0.00-0.20 [facility] Comment on above: Performed By: #### C DP, CP, LIP #### [facility] [address] [place] [phone] Pinball Machine Repairer: John Yancey MD Abs.Imm.Granulocyte <0.03 Normal 0.00-0.30 [facility] Comment on above: Performed By: #### C DP, CP, LIP #### [facility] [address] [place], [place] [phone] Pinball Machine Repairer: John Yancey MD Abs.Neutrophil (Seg) 3.38 k/uL Normal 1.50-8.10 [facility] Comment on above: Performed By: #### C DP, CP, LIP #### [address] [address] Pinball Machine Repairer: John Yancey MD Basophils/100 WBC (Bld) 1 % Normal 0-2 [facility] Comment on above: Performed By: #### C DP, CP, LIP #### [address] [address] Pinball Machine Repairer: John Yancey MD Eosinophils (Bld) [#/Vol] 0.24 10*3/uL Normal 0.00-0.44 [facility] Comment on above: Performed By: #### C DP, CP, LIP #### [address] [address] Pinball Machine Repairer: John Yancey MD Eosinophils/100 WBC (Bld) 4 % Normal 1-4 [facility] Comment on above: Performed By: #### C DP, CP, LIP #### [address] [address] Pinball Machine Repairer: John Yancey MD Erythrocyte distribution width (RBC) [Ratio] 12.5 % Normal 11.8-14.4 [facility] Comment on above: Performed By: #### C DP, CP, LIP #### [address] [address] Pinball Machine Repairer: John Yancey MD Hematocrit (Bld) [Volume fraction] 45.7 % Normal 36.3-47.1 [facility] Comment on above: Performed By: #### C DP, CP, LIP #### [address] [address] Pinball Machine Repairer: John Yancey MD Hemoglobin (Bld) [Mass/Vol] 14.5 g/dL Normal 11.9-15.1 [facility] Comment on above: Performed By: #### C DP, CP, LIP #### [address] [address] Pinball Machine Repairer: John Yancey MD Immature granulocytes (Bld) [#/Vol] 0 % Normal 0 [facility] Comment on above: Performed By: #### C DP, CP, LIP #### [address] [address] Pinball Machine Repairer: John Yancey MD Lymphocytes (Bld) [#/Vol] 2.47 10*3/uL Normal 1.10-3.70 [facility] Comment on above: Performed By: #### C DP, CP, LIP #### [address] [address] Pinball Machine Repairer: John Yancey MD Lymphocytes/100 WBC (Bld) 37 % Normal 24-43 [facility] Comment on above: Performed By: #### C DP, CP, LIP #### [address] [address] Pinball Machine Repairer: John Yancey MD MCH (RBC) [Entitic mass] 30.4 pg Normal 25.2-33.5 [facility] Comment on above: Performed By: #### C DP, CP, LIP #### [address] [address] Pinball Machine Repairer: John Yancey MD MCHC (RBC) [Mass/Vol] 31.7 g/dL Normal 28.4-34.8 [facility] Comment on above: Performed By: #### C DP, CP, LIP #### [address] [address] Pinball Machine Repairer: John Yancey MD MCV (RBC) [Entitic vol] 95.8 fL Normal 82.6-102.9 [facility] Comment on above: Performed By: #### C DP, CP, LIP #### [address] [address] Pinball Machine Repairer: John Yancey MD Monocytes (Bld) [#/Vol] 0.52 10*3/uL Normal 0.10-1.20 [facility] Comment on above: Performed By: #### C DP, CP, LIP #### [address] [address] Pinball Machine Repairer: John Yancye MD Monocytes/100 WBC (Bld) 8 % Normal 3-12 [facility] Comment on above: Performed By: #### C DP, CP, LIP #### [place] [address] Pinball Machine Repairer: John Yancey MD Neutrophil (Seg) 50 % Normal 36-65 [facility] Comment on above: Performed By: #### C DP, CP, LIP #### [address] [address] Pinball Machine Repairer: John Yancey MD NRBC Automated 0.0 per 100 WBC Normal 0.0 [facility] Comment on above: Performed By: #### C DP, CP, LIP #### [place] [address] Pinball Machine Repairer: John Yancey MD Platelet mean volume (Bld) [Entitic vol] 10.8 fL Normal 8.1-13.5 [facility] Comment on above: Performed By: #### C DP, CP, LIP #### [address] [address] Pinball Machine Repairer: John Yancey MD Platelets (Bld) [#/Vol] 176 10*3/uL Normal 138-453 [facility] Comment on above: Performed By: #### C DP, CP, LIP #### [facility] [address] [place] [address] Pinball Machine Repairer: John Yancey MD RBC (Bld) [#/Vol] 4.77 10*6/uL Normal 3.95-5.11 [facility] Comment on above: Performed By: #### C DP, CP, LIP #### [facility] [address] [place] [address] Pinball Machine Repairer: John Yancey MD WBC (Bld) [#/Vol] 6.7 10*3/uL Normal 3.5-11.3 [facility] Comment on above: Performed By: #### C DP, CP, LIP #### [facility] [address] [place] [address] Pinball Machine Repairer: John Yancey MD Auto Diff Performed NOT REPORTED Normal [facility] Comment on above: Performed By: #### C DP, CP, LIP #### [facility] [address] [place] [phone] Pinball Machine Repairer: John Yancey MD Platelets (Bld) [#/Vol] NOT REPORTED Normal [facility] Comment on above: Performed By: #### C DP, CP, LIP #### [facility] [address] [place] [address] Pinball Machine Repairer: John Yancey MD RBC morphology finding Nom (Bld) NOT REPORTED Normal [facility] Comment on above: Performed By: #### C DP, CP, LIP #### [facility] [address] [place] [address] Pinball Machine Repairer: John Yancey MD WBC Morphology NOT REPORTED Normal [facility] Comment on above: Performed By: #### C DP, CP, LIP #### [facility] [address] [place] [phone] Pinball Machine Repairer: John Yancey MD CT ABDOMEN PELVIS W IV CONTR [place] 05-23-2020 CT ABDOMEN PELVIS W IV CONTRAST EXAMINATION: CT OF THE ABDOMEN AND PELVIS WITH CONTRAST 12/15/2019 6:05 pm TECHNIQUE: CT of the abdomen and pelvis was performed with the administration of intravenous contrast. Multiplanar reformatted images are provided for review. Dose modulation, iterative reconstruction, and/or weight based adjustment of the mA/kV was utilized to reduce the radiation dose to as low as reasonably achievable. COMPARISON: 07/23/2019 HISTORY: ORDERING SYSTEM PROVIDED HISTORY: hx of daniela-en-y, seen with suspicion jejunostomy intussusception yesterday TECHNOLOGIST PROVIDED HISTORY: hx of daniela-en-y, seen with suspicion jejunostomy intussusception yesterday Reason for Exam: hx of daniela-en-y, seen with suspicion jejunostomy intussusception yesterday Acuity: Acute Type of Exam: Initial FINDINGS: Lower Chest: No acute findings. Organs: Status post cholecystectomy. No biliary dilatation. The liver, pancreas, spleen, adrenals and kidneys reveal no acute findings. GI/Bowel: Status post Daniela-en-Y gastric bypass. Oral contrast is present in the stomach and through the bypass segment into the small bowel. Long segment small bowel intussusception in the left abdomen is best demonstrated on coronal image 35 and sagittal image 89 measuring 7 cm in length. This is near a small bowel anastomosis and the upstream bowel is dilated containing contrast. The intussuscepting segment has fecalization, consistent with stasis. No inflammatory change. Pelvis: No acute findings. Corpus luteum cyst in the right ovary. The bladder is well distended. Peritoneum/Retroperi toneum: No free air. No ascites. No lymphadenopathy. The aorta is normal in caliber. Bones/Soft Tissues: No acute osseous abnormality identified. IMPRESSION: Long segment small bowel jejunal intussusception near the anastomosis. Fecalization in this area is noted consistent with stasis and there is mild upstream small bowel distension. Interpreted by: Héctor Ramos MD Signed by: Héctor Ramos MD 12/15/19 Final result Normal [facility] CT ABDOMEN PELVIS W IV CONTR AST Additional Contrast? Oralon 12-15-2019 EXAMINATION: CT OF THE ABDOMEN AND PELVIS WITH CONTRAST 12/15/2019 6:05 pm TECHNIQUE: CT of the abdomen and pelvis was performed with the administration of intravenous contrast. Multiplanar reformatted images are provided for review. Dose modulation, iterative reconstruction, and/or weight based adjustment of the mA/kV was utilized to reduce the radiation dose to as low as reasonably achievable. COMPARISON: 07/23/2019 HISTORY: ORDERING SYSTEM PROVIDED HISTORY: hx of daniela-en-y, seen with suspicion jejunostomy intussusception yesterday TECHNOLOGIST PROVIDED HISTORY: hx of daniela-en-y, seen with suspicion jejunostomy intussusception yesterday Reason for Exam: hx of daniela-en-y, seen with suspicion jejunostomy intussusception yesterday Acuity: Acute Type of Exam: Initial FINDINGS: Lower Chest: No acute findings. Organs: Status post cholecystectomy. No biliary dilatation. The liver, pancreas, spleen, adrenals and kidneys reveal no acute findings. GI/Bowel: Status post Daniela-en-Y gastric bypass. Oral contrast is present in the stomach and through the bypass segment into the small bowel. Long segment small bowel intussusception in the left abdomen is best demonstrated on coronal image 35 and sagittal image 89 measuring 7 cm in length. This is near a small bowel anastomosis and the upstream bowel is dilated containing contrast. The intussuscepting segment has fecalization, consistent with stasis. No inflammatory change. Pelvis: No acute findings. Corpus luteum cyst in the right ovary. The bladder is well distended. Peritoneum/Retroperi toneum: No free air. No ascites. No lymphadenopathy. The aorta is normal in caliber. Bones/Soft Tissues: No acute osseous abnormality identified. [place] Long segment small bowel jejunal intussusception near the anastomosis. Fecalization in this area is noted consistent with stasis and there is mild upstream small bowel distension. [place], [facility] Incoming Radiant Results From [employer] [facility] - 12/15/2019 6:56 PM EDT EXAMINATION: CT OF THE ABDOMEN AND PELVIS WITH CONTRAST 12/15/2019 6:05 pm TECHNIQUE: CT of the abdomen and pelvis was performed with the administration of intravenous contrast. Multiplanar reformatted images are provided for review. Dose modulation, iterative reconstruction, and/or weight based adjustment of the mA/kV was utilized to reduce the radiation dose to as low as reasonably achievable. COMPARISON: 07/23/2019 HISTORY: ORDERING SYSTEM PROVIDED HISTORY: hx of daniela-en-y, seen with suspicion jejunostomy intussusception yesterday TECHNOLOGIST PROVIDED HISTORY: hx of daniela-en-y, seen with suspicion jejunostomy intussusception yesterday Reason for Exam: hx of daniela-en-y, seen with suspicion jejunostomy intussusception yesterday Acuity: Acute Type of Exam: Initial FINDINGS: Lower Chest: No acute findings. Organs: Status post cholecystectomy. No biliary dilatation. The liver, pancreas, spleen, adrenals and kidneys reveal no acute findings. GI/Bowel: Status post Daniela-en-Y gastric bypass. Oral contrast is present in the stomach and through the bypass segment into the small bowel. Long segment small bowel intussusception in the left abdomen is best demonstrated on coronal image 35 and sagittal image 89 measuring 7 cm in length. This is near a small bowel anastomosis and the upstream bowel is dilated containing contrast. The intussuscepting segment has fecalization, consistent with stasis. No inflammatory change. Pelvis: No acute findings. Corpus luteum cyst in the right ovary. The bladder is well distended. Peritoneum/Retroperi toneum: No free air. No ascites. No lymphadenopathy. The aorta is normal in caliber. Bones/Soft Tissues: No acute osseous abnormality identified. IMPRESSION: Long segment small bowel jejunal intussusception near the anastomosis. Fecalization in this area is noted consistent with stasis and there is mild upstream small bowel distension. [facility] [place] Comp Metabolic Profon 2019 (cont.) Normal [facility] Comment on above: Result Comment: Aver age GFR for 30-39 years old: 107 mL/min/1.73sq m Chronic Kidney Disease: <60 mL/min/1.73sq m Kidney failure: <15 mL/min/1.73sq m eGFR calculated using average adult body mass. Additional eGFR calculator available at: http://www.[employer].com/multiple_crcl_2012.htm Performed By: #### C DP, CP, LIP #### [employer] [facility] [address] [place] [address] Pinball Machine Repairer: John Yancey MD Albumin [Mass/Vol] 4.0 g/dL Normal 3.5-5.2 [facility] Comment on above: Performed By: #### C DP, CP, LIP #### [address] [address] Pinball Machine Repairer: John Yancey MD Albumin/Globulin [Mass ratio] 1.6 {ratio} Normal 1.0-2.5 [facility] Comment on above: Performed By: #### C DP, CP, LIP #### [address] [address] Pinball Machine Repairer: John Yancey MD Alkaline Phos 66 U/L Normal 35-104 [facility] Comment on above: Performed By: #### C DP, CP, LIP #### [address] [address] Pinball Machine Repairer: John Yancey MD ALT [Catalytic activity/Vol] 23 U/L Normal 5-33 [facility] Comment on above: Performed By: #### C DP, CP, LIP #### [address] [address] Pinball Machine Repairer: John Yancey MD Anion gap [Moles/Vol] 8 mmol/L Low 9-17 [facility] Comment on above: Performed By: #### C DP, CP, LIP #### [address] [address] Pinball Machine Repairer: John Yancey MD AST [Catalytic activity/Vol] 23 U/L Normal <32 [facility] Comment on above: Performed By: #### C DP, CP, LIP #### [address] [address] Pinball Machine Repairer: John Yancey MD Bilirubin Ql (U) 0.19 mg/dL Low 0.3-1.2 [facility] Comment on above: Performed By: #### C DP, CP, LIP #### [address] [id number] Pinball Machine Repairer: John Yancey MD Calcium [Mass/Vol] 9.1 mg/dL Normal 8.6-10.4 [facility] Comment on above: Performed By: #### C DP, CP, LIP #### [address] [address] Pinball Machine Repairer: John Yancey MD Chloride [Moles/Vol] 107 mmol/L Normal 98-107 [facility] Comment on above: Performed By: #### C DP, CP, LIP #### [address] [address] Pinball Machine Repairer: John Yancey MD CO2 [Moles/Vol] 25 mmol/L Normal 20-31 [facility] Comment on above: Performed By: #### C DP, CP, LIP #### [address] [address] Pinball Machine Repairer: John Yancey MD Creatinine [Mass/Vol] 0.59 mg/dL Normal 0.50-0.90 [facility] Comment on above: Performed By: #### C DP, CP, LIP #### [address] [address] Pinball Machine Repairer: John Yancey MD GFR, Amer >60 Normal >60 [facility] Comment on above: Performed By: #### C DP, CP, LIP #### [address] [address] Pinball Machine Repairer: John Yancey MD GFR,non Amer >60 Normal >60 [facility] Comment on above: Performed By: #### C DP, CP, LIP #### [address] [address] Pinball Machine Repairer: John Yancey MD Glucose [Mass/Vol] 81 mg/dL Normal 70-99 [facility] Comment on above: Performed By: #### C DP, CP, LIP #### [facility] [address] [place] [address] Pinball Machine Repairer: John Yancey MD Potassium [Moles/Vol] 4.6 mmol/L Normal 3.7-5.3 [facility] Comment on above: Performed By: #### C DP, CP, LIP #### [facility] [address] [place] [address] Pinball Machine Repairer: John Yancey MD Protein [Mass/Vol] 6.5 g/dL Normal 6.4-8.3 [facility] Comment on above: Performed By: #### C DP, CP, LIP #### [facility] [address] [place] [address] Pinball Machine Repairer: John Yancey MD Sodium [Moles/Vol] 140 mmol/L Normal 135-144 [facility] Comment on above: Performed By: #### C DP, CP, LIP #### [facility] [address] [place] [address] Pinball Machine Repairer: John Yancey MD Urea nitrogen [Mass/Vol] 9 mg/dL Normal -20 [facility] Comment on above: Performed By: #### C DP, CP, LIP #### [facility] [address] [place] [address] Pinball Machine Repairer: John Yancey MD BUN/CRE Ratio NOT REPORTED Normal -20 [facility] Comment on above: Performed By: #### C DP, CP, LIP #### [facility] [address] [place] [address] Pinball Machine Repairer: John Yancey MD Staging: NOT REPORTED Normal [facility] Comment on above: Performed By: #### C DP, CP, LIP #### [facility] [address] [place] [address] Pinball Machine Repairer: John Yancey MD Comprehensive Metabolic Pane chica 12-15-2019 Albumin [Mass/Vol] 4 g/dL 3.5 - 5.2 g/dL [place] Albumin/Globulin [Mass ratio] 1.6 {ratio} [place] ALP [Catalytic activity/Vol] 66 U/L 35 - 104 U/L [place] ALT [Catalytic activity/Vol] 23 U/L 5 - 33 U/L [place] Anion gap [Moles/Vol] 8 mmol/L Low 9 - 17 mmol/L [place] AST [Catalytic activity/Vol] 23 U/L <32 [place] Bilirubin Ql (U) 0.19 mg/dL Low 0.3 - 1.2 mg/dL [place] Bun/Cre Ratio NOT REPORTED [place], [place] Calcium [Mass/Vol] 9.1 mg/dL 8.6 - 10. 4 mg/dL [place] Chloride [Moles/Vol] 107 mmol/L 98 - 10 7 mmol/L [place] CO2 [Moles/Vol] 25 mmol/L 20 - 31 mmol/L [place] Creatinine [Mass/Vol] 0.59 mg/dL 0.5 - 0.9 mg/dL [place] GFR >60 >60 mL/min [place] GFR Non- >60 >60 mL/min [place] GFR/1.73 sq M predicted among non-blacks MDRD (S/P/Bld) [Vol rate/Area] [place] Comment on above: Average GFR for 30-3 9 years old: 107 mL/min/1.73sq m Chronic Kidney Disease: <60 mL/min/1.73sq m Kidney failure: <15 mL/min/1.73sq m eGFR calculated using average adult body mass. Additional eGFR calculator available at: http://www.[employer]/multiple_crcl_2012.htm GFR/1.73 sq M predicted among non-blacks MDRD (S/P/Bld) [Vol rate/Area] NOT REPORTED [place] Glucose [Mass/Vol] 81 mg/dL 70 - 99 mg/dL [place] Interpretation and review of laboratory results Abnormal [place] Potassium [Moles/Vol] 4.6 mmol/L 3.7 - 5.3 mmol/L [place] Protein [Mass/Vol] 6.5 g/dL 6.4 - 8.3 g/dL [place] Sodium [Moles/Vol] 140 mmol/L 135 - 144 mmol/L [place] Urea nitrogen [Mass/Vol] 9 mg/dL 6 - 20 mg/dL [place] LIPASEon 12-15-2019 Lipase [Catalytic activity/Vol] 20 U/L 13 - 60 U/L [place] Lipaseon 12-15-2019 Lipase [Catalytic activity/Vol] 20 U/L Normal -60 [facility] Comment on above: Performed By: #### C JP ENGLISH, LIP #### [id number] [place], [place] [id number] Pinball Machine Repairer: John Yancey MD [id number] 12-15-2019 SARS-CoV-2 Source .NASOPHARYNGEAL SWAB Normal [facility] Comment on above: Performed By: #### C OVID #### [id number] [place], [place] [phone] Pinball Machine Repairer: John Yancey MD Topamaxon 07-31-2019 TOPA 2.7 ug/mL Low 5.0-20.0 [facility] Comment on above: Result Comment: (NOT E) INTERPRETIVE INFORMATION: Topiramate Therapeutic range: 5.0-20.0 ug/mL Toxic: Not well established Pharmacokinetics varies widely, particularly with co-medications, age, and/or compromised renal function. Adverse effects may include somnolence, fatigue, and dizziness. Performed by [employer], [address] [place] [id number] [email or web address], Nando Parrish MD, Lab. Director Performed By: #### C JP ENGLISH, LIP #### [facility] [address] [place] [address] Pinball Machine Repairer: Kd Page MD CBC Auto DifferentialOrdered By: Tobias Hogan on 07-29-2019 Absolute Eos # 0.21 [employer] [facility] Work Phone: Absolute Immature Granulocyte <0.03 [employer] Work Phone: Absolute Lymph # 2.30 [employer] Work Phone: Absolute Shannon # 0.62 [facility] Work Phone: Basophils (Bld) [#/Vol] 0.06 10*3/uL [facility] Work Phone: Basophils/100 WBC (Bld) 1 % 0 - 2 % [facility] Work Phone: Differential Type NOT REPORTED [facility] Phone: Eosinophils/100 WBC (Bld) 3 % 1 - 4 % [facility] Work Phone: Erythrocyte distribution width (RBC) [Ratio] 12.8 % 11.8 - 14.4 % [facility] Phone: Hematocrit (Bld) [Volume fraction] 38.4 % 36.3 - 47.1 % [employer] Phone: Hemoglobin (Bld) [Mass/Vol] 12.3 g/dL 11.9 - 15.1 g/dL [employer] Phone: Immature granulocytes/100 WBC (Bld) 0 % 0 [facility] Phone: Lymphocytes/100 WBC (Bld) 29 % 24 - 43 % [facility] Work Phone: MCH (RBC) [Entitic mass] 30.4 pg 25.2 - 33.5 pg [employer] Phone: MCHC (RBC) [Mass/Vol] 32.0 g/dL 28.4 - 34.8 g/dL [facility] Phone: MCV (RBC) [Entitic vol] 94.8 fL 82.6 - 102.9 fL [employer] Work Phone: Monocytes/100 WBC (Bld) 8 % 3 - 12 % M [facility] [employer] Work Phone: NRBC Automated 0.0 0.0 per 100 WBC [facility] Phone: Platelet Estimate NOT REPORTED [facility] Work Phone: Platelet mean volume (Bld) [Entitic vol] 11.0 fL 8.1 - 13.5 fL [facility] Work Phone: Platelets (Bld) [#/Vol] 220 10*3/uL [facility] [employer] Work Phone: RBC (Bld) [#/Vol] 4.05 10*6/uL 3.95 - 5.1 1 m/uL [facility] Work Phone: RBC morphology finding Nom (Bld) NOT REPORTED [facility] [employer] Work Phone: Segmented neutrophils/100 WBC (Bld) 59 % 36 - 65 % [facility] [employer] Work Phone: Segs Absolute 4.79 [employer] [facility] Work Phone: WBC (Bld) [#/Vol] 8.0 10*3/uL [facility] [employer] Work Phone: WBC Morphology NOT REPORTED [employer] [facility] Work Phone: CBC with Diffon 07-29-2019 Abs. Basophil 0.06 k/uL Normal 0.00-0.20 [facility] Comment on above: Performed By: #### C DP, HCG, CMPX #### [facility] [address] [place] [address] Pinball Machine Repairer: Kd Page MD Abs.Imm.Granulocyte <0.03 Normal 0.00-0.30 [facility] Comment on above: Performed By: #### C DP, HCG, CMPX #### [facility] [address] [place], [facility] Pinball Machine Repairer: Kd Page MD Abs.Neutrophil (Seg) 4.79 k/uL Normal 1.50-8.10 [facility] Comment on above: Performed By: #### C DP, HCG, CMPX #### [facility] [address] [place], [place] [address] Pinball Machine Repairer: Kd Page MD Basophils/100 WBC (Bld) 1 % Normal 0-2 [facility] Comment on above: Performed By: #### C DP, HCG, CMPX #### [facility] [address] [place], [facility] [employer]ball Machine Repairer: Kd Page MD Eosinophils (Bld) [#/Vol] 0.21 10*3/uL Normal 0.00-0.44 [facility] Comment on above: Performed By: #### C DP, HCG, CMPX #### [address] [place], [facility] Pinball Machine Repairer: Kd Page MD Eosinophils/100 WBC (Bld) 3 % Normal 1-4 [facility] Comment on above: Performed By: #### C DP, HCG, CMPX #### [address] [place], [facility] Pinball Machine Repairer: Kd Page MD Erythrocyte distribution width (RBC) [Ratio] 12.8 % Normal 11.8-14.4 [facility] Comment on above: Performed By: #### C DP, HCG, CMPX #### [address] [place], [facility] Pinball Machine Repairer: Kd Page MD Hematocrit (Bld) [Volume fraction] 38.4 % Normal 36.3-47.1 [facility] Comment on above: Performed By: #### C DP, HCG, CMPX #### [address] [place] [facility] Pinball Machine Repairer: Kd Page MD Hemoglobin (Bld) [Mass/Vol] 12.3 g/dL Normal 11.9-15.1 [facility] Comment on above: Performed By: #### C DP, HCG, CMPX #### [facility] [address] [place] [facility] Pinball Machine Repairer: Kd Page MD Immature granulocytes (Bld) [#/Vol] 0 % Normal 0 [facility] Comment on above: Performed By: #### C DP, HCG, CMPX #### [facility] [address] [place] [address] Pinball Machine Repairer: Kd Page MD Lymphocytes (Bld) [#/Vol] 2.30 10*3/uL Normal 1.10-3.70 [facility] Comment on above: Performed By: #### C DP, HCG, CMPX #### [address] [place] [facility] Pinball Machine Repairer: Kd Page MD Lymphocytes/100 WBC (Bld) 29 % Normal 24-43 [facility] Comment on above: Performed By: #### C DP, HCG, CMPX #### [address] [place] [facility] Pinball Machine Repairer: Kd Page MD MCH (RBC) [Entitic mass] 30.4 pg Normal 25.2-33.5 [facility] Comment on above: Performed By: #### C DP, HCG, CMPX #### [address] [place] [facility] Pinball Machine Repairer: Kd Page MD MCHC (RBC) [Mass/Vol] 32.0 g/dL Normal 28.4-34.8 [facility] Comment on above: Performed By: #### C DP, HCG, CMPX #### [address] [place] [facility] Pinball Machine Repairer: Kd Page MD MCV (RBC) [Entitic vol] 94.8 fL Normal 82.6-102.9 [facility] Comment on above: Performed By: #### C DP, HCG, CMPX #### [facility] [address] [place], [place] [id number] Pinball Machine Repairer: Kd Page MD Monocytes (Bld) [#/Vol] 0.62 10*3/uL Normal 0.10-1.20 [facility] Comment on above: Performed By: #### C DP, HCG, CMPX #### [facility] [address] [place], [place] [address] Pinball Machine Repairer: Kd Page MD Monocytes/100 WBC (Bld) 8 % Normal 3-12 [facility] Comment on above: Performed By: #### C DP, HCG, CMPX #### [address] [place], [facility] Pinball Machine Repairer: Kd Page MD Neutrophil (Seg) 59 % Normal 36-65 [facility] Comment on above: Performed By: #### C DP, HCG, CMPX #### [address] [place], [place] [id number] Pinball Machine Repairer: Kd Page MD NRBC Automated 0.0 per 100 WBC Normal 0.0 [facility] Comment on above: Performed By: #### C DP, HCG, CMPX #### [facility] [address] [place] [address] Pinball Machine Repairer: Kd Page MD Platelet mean volume (Bld) [Entitic vol] 11.0 fL Normal 8.1-13.5 [facility] Comment on above: Performed By: #### C DP, HCG, CMPX #### [facility] [address] [place], [place] [phone] [employer]ball Machine Repairer: Kd Page MD Platelets (Bld) [#/Vol] 220 10*3/uL Normal 138-453 [facility] Comment on above: Performed By: #### C DP, HCG, CMPX #### [facility] [address] [place], [place] [address] [employer]ball Machine Repairer: Kd Page MD RBC (Bld) [#/Vol] 4.05 10*6/uL Normal 3.95-5.11 [facility] Comment on above: Performed By: #### C DP, HCG, CMPX #### [facility] [address] [place], [facility] [employer] Repairer: Kd Page MD WBC (Bld) [#/Vol] 8.0 10*3/uL Normal 3.5-11.3 [facility] Comment on above: Performed By: #### C DP, HCG, CMPX #### [facility] [address] [place], [place] [address] Pinball Machine Repairer: Kd Page MD Auto Diff Performed NOT REPORTED Normal [facility] Comment on above: Performed By: #### C DP, HCG, CMPX #### [address] [place], [facility] Pinball Machine Repairer: Kd Page MD Platelets (Bld) [#/Vol] NOT REPORTED Normal [facility] Comment on above: Performed By: #### C DP, HCG, CMPX #### [facility] [address] [place], [facility] [employer] Repairer: Kd Page MD RBC morphology finding Nom (Bld) NOT REPORTED Normal [facility] Comment on above: Performed By: #### C DP, HCG, CMPX #### [facility] [address] [place] [address] Pinball Machine Repairer: Kd Page MD WBC Morphology NOT REPORTED Normal [facility] Comment on above: Performed By: #### C DP, HCG, CMPX #### [facility] [address] [place] [address] [employer]ball Machine Repairer: Kd Page MD Comp Metabolic Pr/rfx MGon 0 07-29-2019 (cont.) Normal [facility] Comment on above: Result Comment: Aver age GFR for 30-39 years old: 107 mL/min/1.73sq m Chronic Kidney Disease: <60 mL/min/1.73sq m Kidney failure: <15 mL/min/1.73sq m eGFR calculated using average adult body mass. Additional eGFR calculator available at: http://www.[employer]/multiple_crcl_2011.htm Performed By: #### C DP, HCG, CMPX #### [facility] [address] [place] [address] [employer]ball Machine Repairer: Kd Page MD Albumin [Mass/Vol] 3.6 g/dL Normal 3.5-5.2 [facility] Comment on above: Performed By: #### C DP, HCG, CMPX #### [facility] [address] [place] [address] [employer]ball Machine Repairer: Kd Page MD Albumin/Globulin [Mass ratio] 1.1 {ratio} Normal 1.0-2.5 [facility] Comment on above: Performed By: #### C DP, HCG, CMPX #### [facility] [address] [place] [address] [employer]ball Machine Repairer: Kd Page MD Alkaline Phos 48 U/L Normal 35-104 [facility] Comment on above: Performed By: #### C DP, HCG, CMPX #### [facility] [address] [place] [address] Pinball Machine Repairer: Kd Page MD ALT [Catalytic activity/Vol] U/L Low 5-33 [facility] Comment on above: Performed By: #### C DP, HCG, CMPX #### [facility] [address] [place] [address] [employer]ball Machine Repairer: Kd Page MD Anion gap [Moles/Vol] 11 mmol/L Normal 9-17 [facility] Comment on above: Performed By: #### C DP, HCG, CMPX #### [facility] [address] [place] [address] [employer]ball Machine Repairer: Kd Page MD AST [Catalytic activity/Vol] 20 U/L Normal <32 [facility] Comment on above: Performed By: #### C DP, HCG, CMPX #### [facility] [address] [place], [place] [phone] [employer] Repairer: Kd Page MD Bilirubin Ql (U) 0.28 mg/dL Low 0.3-1.2 [facility] Comment on above: Performed By: #### C DP, HCG, CMPX #### [facility] [address] [place] [address] [employer]ball Machine Repairer: Kd Page MD BUN/CRE Ratio 10 Normal 9-20 [facility] Comment on above: Performed By: #### C DP, HCG, CMPX #### [facility] [address] [place], [place] [phone] [employer] Repairer: Kd Page MD Calcium [Mass/Vol] 9.0 mg/dL Normal 8.6-10.4 [facility] Comment on above: Performed By: #### C DP, HCG, CMPX #### [facility] [address] [place], [place] [address] [employer] Machine Repairer: Kd Page MD Chloride [Moles/Vol] 103 mmol/L Normal 98-107 [facility] Comment on above: Performed By: #### C DP, HCG, CMPX #### [facility] [address] [place] [address] [employer]ball Machine Repairer: Kd Page MD CO2 [Moles/Vol] 24 mmol/L Normal 20-31 [facility] Comment on above: Performed By: #### C DP, HCG, CMPX #### [facility] [address] [place], [place] [address] [employer]ball Machine Repairer: Kd Page MD Creatinine [Mass/Vol] 0.59 mg/dL Normal 0.50-0.90 [facility] Comment on above: Performed By: #### C DP, HCG, CMPX #### [facility] [address] [place], [place] [phone] [employer] Repairer: Kd Page MD GFR, Amer >60 Normal >60 [facility] Comment on above: Performed By: #### C DP, HCG, CMPX #### [facility] [address] [place], [place] [phone] [employer] Repairer: Kd Page MD GFR,non Amer >60 Normal >60 [facility] Comment on above: Performed By: #### C DP, HCG, CMPX #### [facility] [address] [place], [place] [phone] [employer] Repairer: Kd Page MD Glucose [Mass/Vol] 85 mg/dL Normal 70-99 [facility] Comment on above: Performed By: #### C DP, HCG, CMPX #### [facility] [address] [place], [place] [phone] [employer] Machine Repairer: Kd Page MD Potassium [Moles/Vol] 4.1 mmol/L Normal 3.7-5.3 [facility] Comment on above: Performed By: #### C DP, HCG, CMPX #### [facility] [address] [place] [address] [employer] Machine Repairer: Kd Page MD Protein [Mass/Vol] 6.8 g/dL Normal 6.4-8.3 [facility] Comment on above: Performed By: #### C DP, HCG, CMPX #### [facility] [address] [place], [place] [address] [employer] Repairer: Kd Page MD Sodium [Moles/Vol] 138 mmol/L Normal 135-144 [facility] Comment on above: Performed By: #### C DP, HCG, CMPX #### [facility] [address] [place] [address] [employer]ball Machine Repairer: Kd Page MD Staging: Normal [facility] Comment on above: Result Comment: Stag e 1: Some kidney damage normal GFR Stage 2: Mild kidney damage GFR 60-89 Stage 3: Moderate kidney damage GFR 30-59 Stage 4: Severe kidney damage GFR 15-29 Stage 5: Severe kidney damage GFR <15 ESRD - chronic treatment by dialysis or transplant Performed By: #### C DP, HCG, CMPX #### [facility] [address] [place] [address] [employer]ball Machine Repairer: Kd Page MD Urea nitrogen [Mass/Vol] 6 mg/dL Normal 6-20 [facility] Comment on above: Performed By: #### C DP, HCG, CMPX #### [facility] [address] [place] [address] [employer] Repairer: Kd Page MD Comprehensive Metabolic Pane l w/ Reflex to MGOrdered By: Tobias Hogan on 07-29-2019 Albumin [Mass/Vol] 3.6 g/dL 3.5 - 5.2 g/dL [employer] Phone: Albumin/Globulin [Mass ratio] 1.1 {ratio} [employer] Phone: ALP [Catalytic activity/Vol] 48 U/L 35 - 104 U/L [employer] Phone: ALT [Catalytic activity/Vol] U/L Low 5 - 33 U/L [employer] Phone: Anion gap [Moles/Vol] 11 mmol/L 9 - 17 mmol/L [employer] Phone: AST [Catalytic activity/Vol] 20 U/L <32 [employer] Phone: Bilirubin [Mass/Vol] 0.28 mg/dL Low 0.3 - 1 .2 mg/dL [employer] Phone: Bun/Cre Ratio 10 [employer] [facility] Work Phone: Calcium [Mass/Vol] 9.0 mg/dL 8.6 - 10. 4 mg/dL [employer] Phone: Chloride [Moles/Vol] 103 mmol/L 98 - 10 7 mmol/L [facility] Phone: CO2 [Moles/Vol] 24 mmol/L 20 - 31 mmol/L [employer] Phone: Creatinine [Mass/Vol] 0.59 mg/dL 0.5 - 0.9 mg/dL [employer] Phone: GFR >60 >60 mL/min [employer] Phone: GFR Comment [facility] Phone: Comment on above: Average GFR for 30-3 9 years old: 107 mL/min/1.73sq m Chronic Kidney Disease: <60 mL/min/1.73sq m Kidney failure: <15 mL/min/1.73sq m eGFR calculated using average adult body mass. Additional eGFR calculator available at: http://www.[employer]/multiple_crcl_2012.htm GFR Non- >60 >60 mL/min [facility] Phone: GFR Staging [facility] Phone: Comment on above: Stage 1: Some kidney damage normal GFR Stage 2: Mild kidney damage GFR 60-89 Stage 3: Moderate kidney damage GFR 30-59 Stage 4: Severe kidney damage GFR 15-29 Stage 5: Severe kidney damage GFR <15 ESRD - chronic treatment by dialysis or transplant Glucose [Mass/Vol] 85 mg/dL 70 - 99 mg/dL [email or web address] Phone: Interpretation and review of laboratory results Abnormal [employer] Phone: Potassium [Moles/Vol] 4.1 mmol/L 3.7 - 5.3 mmol/L [employer] Phone: Protein [Mass/Vol] 6.8 g/dL 6.4 - 8.3 g/dL [employer] Phone: Sodium [Moles/Vol] 138 mmol/L 135 - 144 mmol/L [facility] Phone: Urea nitrogen [Mass/Vol] 6 mg/dL 6 - 20 mg/dL [employer] Phone: HCG Qualitative, SerumOrdere d By: Tobias Hogan on 07-29-2019 hCG Qual Negative NEGATIVE [facility] Phone: Comment on above: Specimens with hCG l evels near the threshold of the test (25 mIU/mL) may give a negative or indeterminate result. In such cases, another test should be performed with a new specimen in 48-72 hours. If early is suspected clinically in this setting, correlation with quantitative serum b-hCG level is suggested. [employer] has confirmed the use of plasma for this test. This has not been cleared or approved by the U.S. Food and Drug Administration. The FDA has determined that such clearance is not necessary. HCG Screen, Bloodon 07-29-19 20 HCG Qn Negative Normal NEG [facility] Comment on above: Result Comment: Spec imens with hCG levels near the threshold of the test (25 mIU/mL) may give a negative or indeterminate result. In such cases, another test should be performed with a new specimen in 48-72 hours. If early is suspected clinically in this setting, correlation with quantitative serum b-hCG level is suggested. [employer] has confirmed the use of plasma for this test. This has not been cleared or approved by the U.S. Food and Drug Administration. The FDA has determined that such clearance is not necessary. Performed By: #### C DP, HCG, CMPX #### [facility] [address] [place] [address] Pinball Machine Repairer: MD Minh Cárdenas 07-29-2019 KEPP 13 ug/mL Normal [facility] Comment on above: Result Comment: A reference range for Keppra has not been well established. The proposed therapeutic range for seizure control is 6-46 ug/mL. Measurement of Levetiracetam (Keppra) can be elevated due to the presence of both Keppra and Brivaracetam (Briviact) in the patient's system. The medications are structurally similar thus cross reactivity is possible. Pharmacokinetics of Keppra are affected by renal function. The relationship between serum concentrations and toxicity is not known. Performed By: #### C DP, CP, LIP #### [facility] [address] [place] [address] Pinball Machine Repairer: Kd Page MD XR CHEST (2 VW)on 07-29-2019 XR CHEST (2 VW) EXAMINATION: TWO XRAY VIEWS OF THE CHEST 07/29/2019 3:01 pm COMPARISON: CT abdomen and pelvis 07/23/2019 HISTORY: ORDERING SYSTEM PROVIDED HISTORY: chest pain TECHNOLOGIST PROVIDED HISTORY: chest pain FINDINGS: The lungs are clear. No pneumothorax is seen. There is blunting of the left costophrenic sulcus laterally. Right lateral and bilateral posterior costophrenic sulci are sharp. Cardiac and mediastinal contours are normal. No acute osseous abnormality is seen. Surgical drains in the left upper abdomen. Cholecystectomy clips. No subdiaphragmatic free air. IMPRESSION: Lateral left costophrenic pleural thickening with surgical drains in the left upper abdomen. Interpreted by: Héctor Kimble MD Signed by: Héctor Kimble MD 07/29/19 Final result Normal [facility] XR CHEST STANDARD (2 VW)Orde red By: Tobias Hogan on 07-29-2019 Lateral left costophrenic pleural thickening with surgical drains in the left upper abdomen. [facility] Work Phone: EXAMINATION: TWO XRAY VIEWS OF THE CHEST 07/29/2019 3:01 pm COMPARISON: CT abdomen and pelvis 07/23/2019 HISTORY: ORDERING SYSTEM PROVIDED HISTORY: chest pain TECHNOLOGIST PROVIDED HISTORY: chest pain FINDINGS: The lungs are clear. No pneumothorax is seen. There is blunting of the left costophrenic sulcus laterally. Right lateral and bilateral posterior costophrenic sulci are sharp. Cardiac and mediastinal contours are normal. No acute osseous abnormality is seen. Surgical drains in the left upper abdomen. Cholecystectomy clips. No subdiaphragmatic free air. [employer] Phone: Abner, Mhpn Incoming Radiant Results From [employer] [place] - 07/29/2019 3:11 PM EST EXAMINATION: TWO XRAY VIEWS OF THE CHEST 07/29/2019 3:01 pm COMPARISON: CT abdomen and pelvis 07/23/2019 HISTORY: ORDERING SYSTEM PROVIDED HISTORY: chest pain TECHNOLOGIST PROVIDED HISTORY: chest pain FINDINGS: The lungs are clear. No pneumothorax is seen. There is blunting of the left costophrenic sulcus laterally. Right lateral and bilateral posterior costophrenic sulci are sharp. Cardiac and mediastinal contours are normal. No acute osseous abnormality is seen. Surgical drains in the left upper abdomen. Cholecystectomy clips. No subdiaphragmatic free air. IMPRESSION: Lateral left costophrenic pleural thickening with surgical drains in the left upper abdomen. [employer] Phone: CBC Auto DifferentialOrdered By: Krishna Jefferson on 07-23-2019 [employer] Eos # 0.27 [employer] [facility] Work Phone: Absolute Immature Granulocyte <0.03 [employer] Work Phone: [employer] Lymph # 2.78 [employer] [facility] Work Phone: [employer] Shannon # 0.56 [facility] Work Phone: Basophils (Bld) [#/Vol] 0.06 10*3/uL [employer] Work Phone: Basophils/100 WBC (Bld) 1 % 0 - 2 % M [employer] Phone: Differential Type NOT REPORTED [employer] Phone: Eosinophils/100 WBC (Bld) 3 % 1 - 4 % [employer] Phone: Erythrocyte distribution width (RBC) [Ratio] 13.1 % 11.8 - 14.4 % [employer] Phone: Hematocrit (Bld) [Volume fraction] 38.7 % 36.3 - 47.1 % [employer] Phone: Hemoglobin (Bld) [Mass/Vol] 12.4 g/dL 11.9 - 15.1 g/dL [employer] Phone: Immature granulocytes/100 WBC (Bld) 0 % 0 [employer] Phone: Lymphocytes/100 WBC (Bld) 33 % 24 - 43 % [employer] Phone: MCH (RBC) [Entitic mass] 30.9 pg 25.2 - 33.5 pg [employer] Phone: MCHC (RBC) [Mass/Vol] 32.0 g/dL 28.4 - 34.8 g/dL [employer] Phone: MCV (RBC) [Entitic vol] 96.5 fL 82.6 - 102.9 fL [employer] Phone: Monocytes/100 WBC (Bld) 7 % 3 - 12 % [employer] Phone: NRBC Automated 0.0 0.0 per 100 WBC [employer] Phone: Platelet Estimate NOT REPORTED [employer] Phone: Platelet mean volume (Bld) [Entitic vol] 10.4 fL 8.1 - 13.5 fL [employer] Phone: Platelets (Bld) [#/Vol] 264 10*3/uL [employer] Phone: RBC (Bld) [#/Vol] 4.01 10*6/uL 3.95 - 5.1 1 m/uL [employer] Phone: RBC morphology finding Nom (Bld) NOT REPORTED [employer] Phone: Segmented neutrophils/100 WBC (Bld) 56 % 36 - 65 % [employer] Phone: Segs Absolute 4.66 [facility] Work Phone: WBC (Bld) [#/Vol] 8.3 10*3/uL [facility] Work Phone: WBC Morphology NOT REPORTED [facility] Work Phone: CBC with Diffon 07-23-2019 Abs. Basophil 0.06 k/uL Normal 0.00-0.20 [facility] Comment on above: Performed By: #### C DP, CP, LIP #### [address] [place] [address] [employer]ball Machine Repairer: Kd Page MD Abs.Imm.Granulocyte <0.03 Normal 0.00-0.30 [facility] Comment on above: Performed By: #### C DP, CP, LIP #### [address] [place], [place] [id number] [employer] Machine Repairer: Kd Page MD Abs.Neutrophil (Seg) 4.66 k/uL Normal 1.50-8.10 [facility] Comment on above: Performed By: #### C DP, CP, LIP #### [address] [place], [place] [id number] [employer] Repairer: Kd Page MD Basophils/100 WBC (Bld) 1 % Normal 0-2 [facility] Comment on above: Performed By: #### C DP, CP, LIP #### [address] [place], [place] [id number] [employer] Repairer: Kd Page MD Eosinophils (Bld) [#/Vol] 0.27 10*3/uL Normal 0.00-0.44 [facility] Comment on above: Performed By: #### C DP, CP, LIP #### [address] [place] [address] Pinball Machine Repairer: Kd Page MD Eosinophils/100 WBC (Bld) 3 % Normal 1-4 [facility] Comment on above: Performed By: #### C DP, CP, LIP #### [facility] [address] [place] [address] [employer]ball Machine Repairer: Kd Page MD Erythrocyte distribution width (RBC) [Ratio] 13.1 % Normal 11.8-14.4 [facility] Comment on above: Performed By: #### C DP, CP, LIP #### [facility] [address] [place] [address] [employer]ball Machine Repairer: Kd Page MD Hematocrit (Bld) [Volume fraction] 38.7 % Normal 36.3-47.1 [facility] Comment on above: Performed By: #### C DP, CP, LIP #### [address] [place] [address] [employer]ball Machine Repairer: Kd Page MD Hemoglobin (Bld) [Mass/Vol] 12.4 g/dL Normal 11.9-15.1 [facility] Comment on above: Performed By: #### C DP, CP, LIP #### [address] [place] [address] [employer]ball Machine Repairer: Kd Page MD Immature granulocytes (Bld) [#/Vol] 0 % Normal 0 [facility] Comment on above: Performed By: #### C DP, CP, LIP #### [address] [place] [address] [employer]ball Machine Repairer: Kd Page MD Lymphocytes (Bld) [#/Vol] 2.78 10*3/uL Normal 1.10-3.70 [facility] Comment on above: Performed By: #### C DP, CP, LIP #### [address] [place] [id number] [employer] Machine Repairer: Kd Page MD Lymphocytes/100 WBC (Bld) 33 % Normal 24-43 [facility] Comment on above: Performed By: #### C DP, CP, LIP #### [facility] [address] [place], [facility]83 [employer] Repairer: Kd Page MD MCH (RBC) [Entitic mass] 30.9 pg Normal 25.2-33.5 [facility] Comment on above: Performed By: #### C DP, CP, LIP #### [facility] [address] [place], [place] [address] [employer] Machine Repairer: Kd Page MD MCHC (RBC) [Mass/Vol] 32.0 g/dL Normal 28.4-34.8 [facility] Comment on above: Performed By: #### C DP, CP, LIP #### [facility] [address] [place] [address] [employer]ball Machine Repairer: Kd Page MD MCV (RBC) [Entitic vol] 96.5 fL Normal 82.6-102.9 [facility] Comment on above: Performed By: #### C DP, CP, LIP #### [address] [place], [facility]18 ( [employer] Repairer: Kd Page MD Monocytes (Bld) [#/Vol] 0.56 10*3/uL Normal 0.10-1.20 [facility] Comment on above: Performed By: #### C DP, CP, LIP #### [address] [place], [facility] ( [employer] Repairer: Kd Page MD Monocytes/100 WBC (Bld) 7 % Normal 3-12 [facility] Comment on above: Performed By: #### C DP, CP, LIP #### [facility] [address] [place], [facility]83 [employer] Repairer: Kd Page MD Neutrophil (Seg) 56 % Normal 36-65 [facility] Comment on above: Performed By: #### C DP, CP, LIP #### [facility] [address] [place], [place] [address] [employer]ball Machine Repairer: Kd Page MD NRBC Automated 0.0 per 100 WBC Normal 0.0 [facility] Comment on above: Performed By: #### C DP, CP, LIP #### [facility] [address] [place], [facility]83 [employer] Repairer: Kd Page MD Platelet mean volume (Bld) [Entitic vol] 10.4 fL Normal 8.1-13.5 [facility] Comment on above: Performed By: #### C DP, CP, LIP #### [address] [place] [address] [employer]ball Machine Repairer: Kd Page MD Platelets (Bld) [#/Vol] 264 10*3/uL Normal 138-453 [facility] Comment on above: Performed By: #### C DP, CP, LIP #### [address] [place] [address] [employer]ball Machine Repairer: Kd Page MD RBC (Bld) [#/Vol] 4.01 10*6/uL Normal 3.95-5.11 [facility] Comment on above: Performed By: #### C DP, CP, LIP #### [address] [place] [address] [employer]ball Machine Repairer: Kd Page MD WBC (Bld) [#/Vol] 8.3 10*3/uL Normal 3.5-11.3 [facility] Comment on above: Performed By: #### C DP, CP, LIP #### [address] [place] [id number] [employer] Repairer: Kd Page MD Auto Diff Performed NOT REPORTED Normal [facility] Comment on above: Performed By: #### C DP, CP, LIP #### [facility] [address] [place] [id number] [employer] Repairer: Kd Page MD Platelets (Bld) [#/Vol] NOT REPORTED Normal [facility] Comment on above: Performed By: #### C DP, CP, LIP #### [facility] [address] [place] [address] [employer]ball Machine Repairer: Kd Page MD RBC morphology finding Nom (Bld) NOT REPORTED Normal [facility] Comment on above: Performed By: #### C DP, CP, LIP #### [facility] [address] [place] [address] [employer]ball Machine Repairer: Kd Page MD WBC Morphology NOT REPORTED Normal [facility] Comment on above: Performed By: #### C DP, CP, LIP #### [facility] [address] [place] [address] [employer]ball Machine Repairer: Kd Page MD CT ABDOMEN PELVIS W IV CONTR [place] 07-23-2019 CT ABDOMEN PELVIS W IV CONTRAST EXAMINATION: CT OF THE ABDOMEN AND PELVIS WITH CONTRAST, 07/23/2019 4:29 pm TECHNIQUE: CT of the abdomen and pelvis was performed with the administration of intravenous contrast. Multiplanar reformatted images are provided for review. Dose modulation, iterative reconstruction, and/or weight based adjustment of the mA/kV was utilized to reduce the radiation dose to as low as reasonably achievable. COMPARISON: None HISTORY: ORDERING SYSTEM PROVIDED HISTORY: Hx of gastric bypass and perforation. Drains present. TECHNOLOGIST PROVIDED HISTORY: Oral and IV Contrast Hx of gastric bypass and perforation. Drains present. FINDINGS: Lower Chest: No pleural effusions. Organs: Mild periportal edema. No focal liver lesion. Cholecystectomy. No pancreatic lesion. No splenomegaly. No adrenal lesion. No hydronephrosis. No renal lesion. GI/Bowel: Gastric bypass. No bowel obstruction. Oral contrast is seen within the stomach. No extravasation. No acute inflammatory process. Pelvis: No significant free fluid. No bladder calculus. Peritoneum/Retroperi toneum: Percutaneous drain terminates within the left upper quadrant. Along the spleen there is a small fluid collection. Suggestion of peripheral enhancement with a partially collapsed appearance measuring up to 5 cm. Drain is seen next to this but separate from it. No aortic aneurysm. No adenopathy. Bones/Soft Tissues: No acute soft tissue abnormality. No osseous abnormality. IMPRESSION: No bowel obstruction. No extravasation of oral contrast. Percutaneous drain within the left upper quadrant. Small perisplenic collection is suspected to be an abscess. Drain is seen adjacent to this but not directly within it. Interpreted by: Dusty Krueger MD Signed by: Dusty Krueger MD 07/23/19 Final result Normal [facility] CT ABDOMEN PELVIS W IV CONTR ASTOrdered By: Krishna Jefferson on 07-23-2019 No bowel obstruction. No extravasation of oral contrast. Percutaneous drain within the left upper quadrant. Small perisplenic collection is suspected to be an abscess. Drain is seen adjacent to this but not directly within it. [employer] Phone: EXAMINATION: CT OF THE ABDOMEN AND PELVIS WITH CONTRAST, 07/23/2019 4:29 pm TECHNIQUE: CT of the abdomen and pelvis was performed with the administration of intravenous contrast. Multiplanar reformatted images are provided for review. Dose modulation, iterative reconstruction, and/or weight based adjustment of the mA/kV was utilized to reduce the radiation dose to as low as reasonably achievable. COMPARISON: None HISTORY: ORDERING SYSTEM PROVIDED HISTORY: Hx of gastric bypass and perforation. Drains present. TECHNOLOGIST PROVIDED HISTORY: Oral and IV Contrast Hx of gastric bypass and perforation. Drains present. FINDINGS: Lower Chest: No pleural effusions. Organs: Mild periportal edema. No focal liver lesion. Cholecystectomy. No pancreatic lesion. No splenomegaly. No adrenal lesion. No hydronephrosis. No renal lesion. GI/Bowel: Gastric bypass. No bowel obstruction. Oral contrast is seen within the stomach. No extravasation. No acute inflammatory process. Pelvis: No significant free fluid. No bladder calculus. Peritoneum/Retroperi toneum: Percutaneous drain terminates within the left upper quadrant. Along the spleen there is a small fluid collection. Suggestion of peripheral enhancement with a partially collapsed appearance measuring up to 5 cm. Drain is seen next to this but separate from it. No aortic aneurysm. No adenopathy. Bones/Soft Tissues: No acute soft tissue abnormality. No osseous abnormality. [employer] Phone: Abner, [employer] Incoming Radiant Results From [employer] [place] - 07/23/2019 6:14 PM EST EXAMINATION: CT OF THE ABDOMEN AND PELVIS WITH CONTRAST, 07/23/2019 4:29 pm TECHNIQUE: CT of the abdomen and pelvis was performed with the administration of intravenous contrast. Multiplanar reformatted images are provided for review. Dose modulation, iterative reconstruction, and/or weight based adjustment of the mA/kV was utilized to reduce the radiation dose to as low as reasonably achievable. COMPARISON: None HISTORY: ORDERING SYSTEM PROVIDED HISTORY: Hx of gastric bypass and perforation. Drains present. TECHNOLOGIST PROVIDED HISTORY: Oral and IV Contrast Hx of gastric bypass and perforation. Drains present. FINDINGS: Lower Chest: No pleural effusions. Organs: Mild periportal edema. No focal liver lesion. Cholecystectomy. No pancreatic lesion. No splenomegaly. No adrenal lesion. No hydronephrosis. No renal lesion. GI/Bowel: Gastric bypass. No bowel obstruction. Oral contrast is seen within the stomach. No extravasation. No acute inflammatory process. Pelvis: No significant free fluid. No bladder calculus. Peritoneum/Retroperi toneum: Percutaneous drain terminates within the left upper quadrant. Along the spleen there is a small fluid collection. Suggestion of peripheral enhancement with a partially collapsed appearance measuring up to 5 cm. Drain is seen next to this but separate from it. No aortic aneurysm. No adenopathy. Bones/Soft Tissues: No acute soft tissue abnormality. No osseous abnormality. IMPRESSION: No bowel obstruction. No extravasation of oral contrast. Percutaneous drain within the left upper quadrant. Small perisplenic collection is suspected to be an abscess. Drain is seen adjacent to this but not directly within it. [facility] Work Phone: Comp Metabolic Profon 2018 (cont.) Normal [facility] Comment on above: Result Comment: Aver age GFR for 30-39 years old: 107 mL/min/1.73sq m Chronic Kidney Disease: <60 mL/min/1.73sq m Kidney failure: <15 mL/min/1.73sq m eGFR calculated using average adult body mass. Additional eGFR calculator available at: http://www.[employer]/multiple_crcl_2012.htm Performed By: #### C DP, CP, LIP #### [facility] [address] [place] [address] [place] [address] [employer]ball Machine Repairer: Kd Page MD Albumin [Mass/Vol] 3.7 g/dL Normal 3.5-5.2 [facility] Comment on above: Performed By: #### C DP, CP, LIP #### [facility] [address] [place], [place] [id number] [employer] Repairer: Kd Page MD Albumin/Globulin [Mass ratio] 1.0 {ratio} Normal 1.0-2.5 [facility] Comment on above: Performed By: #### C DP, CP, LIP #### [facility] [address] [place], [place] [id number] [employer] Repairer: Kd Page MD Alkaline Phos 57 U/L Normal 35-104 [facility] Comment on above: Performed By: #### C DP, CP, LIP #### [facility] [address] [place], [place] [address] [employer]ball Machine Repairer: Kd Page MD ALT [Catalytic activity/Vol] 10 U/L Normal 5-33 [facility] Comment on above: Performed By: #### C DP, CP, LIP #### [facility] [address] [place], [place] [id number] [employer]ball Machine Repairer: dK Page MD Anion gap [Moles/Vol] 11 mmol/L Normal 9-17 [facility] Comment on above: Performed By: #### C DP, CP, LIP #### [facility] [address] [place], [place] [id number] [employer] Repairer: Kd Page MD AST [Catalytic activity/Vol] 18 U/L Normal <32 [facility] Comment on above: Performed By: #### C DP, CP, LIP #### [facility] [address] [place], [place] [address] [employer] Repairer: Kd Page MD Bilirubin Ql (U) 0.20 mg/dL Low 0.3-1.2 [facility] Comment on above: Performed By: #### C DP, CP, LIP #### [facility] [address] [place], [place] [id number] [employer]ball [employer] Repairer: Kd Page MD BUN/CRE Ratio 17 Normal 9-20 [facility] Comment on above: Performed By: #### C DP, CP, LIP #### [facility] [address] [place], [place] [address] [employer]ball Machine Repairer: Kd Page MD Calcium [Mass/Vol] 9.0 mg/dL Normal 8.6-10.4 [facility] Comment on above: Performed By: #### C DP, CP, LIP #### [facility] [address] [place], [place] [id number] [employer]ball [employer] Repairer: Kd Page MD Chloride [Moles/Vol] 104 mmol/L Normal 98-107 [facility] Comment on above: Performed By: #### C DP, CP, LIP #### [facility] [address] [place], [place] [address] [employer]ball Machine Repairer: dK Page MD CO2 [Moles/Vol] 24 mmol/L Normal 20-31 [facility] Comment on above: Performed By: #### C DP, CP, LIP #### [facility] [address] [place], [place] [id number] [employer]ball Machine Repairer: Kd Page MD Creatinine [Mass/Vol] 0.48 mg/dL Low 0.50-0.90 [facility] Comment on above: Performed By: #### C DP, CP, LIP #### [facility] [address] [place], [place] [phone] [employer] Repairer: Kd Page MD GFR, Amer >60 Normal >60 [facility] Comment on above: Performed By: #### C DP, CP, LIP #### [facility] [address] [place] [address] Pinball Machine Repairer: Kd Page MD GFR,non Amer >60 Normal >60 [facility] Comment on above: Performed By: #### C DP, CP, LIP #### [facility] [address] [place], [place] [address] [employer]ball Machine Repairer: Kd Page MD Glucose [Mass/Vol] 93 mg/dL Normal 70-99 [facility] Comment on above: Performed By: #### C DP, CP, LIP #### [facility] [address] [place], [place] [phone] [employer]ball Machine Repairer: Kd Page MD Potassium [Moles/Vol] 3.6 mmol/L Low 3.7-5.3 [facility] Comment on above: Performed By: #### C DP, CP, LIP #### [facility] [address] [place], [place] [id number] [employer] Repairer: Kd Page MD Protein [Mass/Vol] 7.4 g/dL Normal 6.4-8.3 [facility] Comment on above: Performed By: #### C DP, CP, LIP #### [facility] [address] [place], [place] [id number] Pinball Machine Repairer: Kd Page MD Sodium [Moles/Vol] 139 mmol/L Normal 135-144 [facility] Comment on above: Performed By: #### C DP, CP, LIP #### [facility] [address] [place], [facility] [employer]ball Machine Repairer: Kd Page MD Staging: Normal [facility] Comment on above: Result Comment: Stag e 1: Some kidney damage normal GFR Stage 2: Mild kidney damage GFR 60-89 Stage 3: Moderate kidney damage GFR 30-59 Stage 4: Severe kidney damage GFR 15-29 Stage 5: Severe kidney damage GFR <15 ESRD - chronic treatment by dialysis or transplant Performed By: #### C DP, CP, LIP #### [facility] [address] [place], [place] [id number] [employer]ball Machine Repairer: Kd Page MD Urea nitrogen [Mass/Vol] 8 mg/dL Normal 6-20 [facility] Comment on above: Performed By: #### C DP, CP, LIP #### [facility] [address] [place] [address] Pinball Machine Repairer: Kd Page MD Comprehensive Metabolic Pane lOrdered By: Krishna Jefferson on 07-23-2019 Albumin [Mass/Vol] 3.7 g/dL 3.5 - 5.2 g/dL [facility] Phone: Albumin/Globulin [Mass ratio] 1.0 {ratio} [facility] Phone: ALP [Catalytic activity/Vol] 57 U/L 35 - 104 U/L [facility] Phone: ALT [Catalytic activity/Vol] 10 U/L 5 - 33 U/L [facility] Phone: Anion gap [Moles/Vol] 11 mmol/L 9 - 17 mmol/L [facility] Phone: AST [Catalytic activity/Vol] 18 U/L <32 [facility] Phone: Bilirubin [Mass/Vol] 0.20 mg/dL Low 0.3 - 1 .2 mg/dL [facility] Phone: Bun/Cre Ratio 17 [facility] Work Phone: Calcium [Mass/Vol] 9.0 mg/dL 8.6 - 10. 4 mg/dL [facility] Phone: Chloride [Moles/Vol] 104 mmol/L 98 - 10 7 mmol/L [facility] Phone: CO2 [Moles/Vol] 24 mmol/L 20 - 31 mmol/L [facility] Phone: Creatinine [Mass/Vol] 0.48 mg/dL Low 0.5 - 0.9 mg/dL [facility] Phone: GFR >60 >60 mL/min Hartman [employer] Phone: GFR Comment [employer] Phone: Comment on above: Average GFR for 30-3 9 years old: 107 mL/min/1.73sq m Chronic Kidney Disease: <60 mL/min/1.73sq m Kidney failure: <15 mL/min/1.73sq m eGFR calculated using average adult body mass. Additional eGFR calculator available at: http://www.Hangtime/multiple_crcl_2012.htm GFR Non- >60 >60 mL/min [employer] Phone: GFR Staging [employer] Phone: Comment on above: Stage 1: Some kidney damage normal GFR Stage 2: Mild kidney damage GFR 60-89 Stage 3: Moderate kidney damage GFR 30-59 Stage 4: Severe kidney damage GFR 15-29 Stage 5: Severe kidney damage GFR <15 ESRD - chronic treatment by dialysis or transplant Glucose [Mass/Vol] 93 mg/dL 70 - 99 mg/dL [email or web address] Phone: Potassium [Moles/Vol] 3.6 mmol/L Low 3.7 - 5.3 mmol/L [employer] Phone: Protein [Mass/Vol] 7.4 g/dL 6.4 - 8.3 g/dL [facility] Phone: Sodium [Moles/Vol] 139 mmol/L 135 - 144 mmol/L [facility] Phone: Urea nitrogen [Mass/Vol] 8 mg/dL 6 - 20 mg/dL [facility] Phone: Lipaseon 07-23-2019 Lipase [Catalytic activity/Vol] 70 U/L High 13-60 [facility] Comment on above: Performed By: #### C DP, CP, LIP #### [facility] [address] [place] [address] Pinball Machine Repairer: Kd Page MD LipaseOrdered By: Krishna tatum on 07-23-2019 Lipase [Catalytic activity/Vol] 70 U/L High 13 - 60 U/L [employer] Phone: Microscopic UrinalysisOrdere d By: Krishna Jefferson on 07-23-2019 - [employer] Work Phone: Amorphous, UA NOT REPORTED None [employer] [facility] Work Phone: Bacteria, UA 1+ Abnormal None [employer] Work Phone: Casts UA NOT REPORTED /LPF [employer] Work Phone: Crystals UA 2 TO 5 CALCIUM OXALATE Abnormal None /HPF [employer] Work Phone: Epithelial Cells UA 2 TO 5 [employer] Work Phone: Interpretation and review of laboratory results Abnormal [employer] Phone: Mucus, UA 3+ Abnormal None [employer] Work Phone: Other Observations UA NOT REPORTED NOT REQ. [facility] Work Phone: RBC, UA 0 TO 2 [employer] Work Phone: Renal Epithelial, Urine NOT REPORTED 0 /HPF [employer] Work Phone: Trichomonas, UA NOT REPORTED None [employer] Work Phone: WBC, UA 0 TO 2 [employer] Work Phone: Yeast, UA NOT REPORTED None [employer] Work Phone: No Panel InformationOrdered By: Krishna Jefferson on 07-23-2019 Interpretation and review of laboratory results Abnormal [employer] Phone: UA w/Reflex Cultureon 2018 Acetoacetic Acid,Ur TRACE Abnormal NEG [facility] Comment on above: Performed By: #### U LUCIA HARDWICK #### [facility] [address] [place] [address] Pinball Machine Repairer: Kd Page MD Bilirubin, SemiQt,Ur Negative Normal NEG [facility] Comment on above: Performed By: #### U AX, UMICAO #### [facility] [address] [place], [place] [id number] [employer]ball Machine Repairer: Kd Page MD Color (U) YELLOW Normal YEL [facility] Comment on above: Performed By: #### U AX, UMICAO #### [facility] [address] [place], [place] [id number] [employer]ball Machine Repairer: Kd Page MD Glucose Ql (U) Negative Normal NEG [facility] Comment on above: Performed By: #### U AX, UMICAO #### [facility] [address] [place], [place] [phone] [employer]ball Machine Repairer: Kd Page MD Hemoglobin, Ur Negative Normal NEG [facility] Comment on above: Performed By: #### U AX, UMICAO #### [facility] [address] [place], [place] [phone] [employer]ball Machine Repairer: Kd Page MD Leukocyte esterase Test strip Ql (U) Negative Normal [facility] Comment on above: Performed By: #### U AX, UMICAO #### [facility] [address] [place], [place] [id number] Pinball Machine Repairer: Kd Page MD Nitrite,Ur Negative Normal [facility] Comment on above: Performed By: #### U AX, UMICAO #### [facility] [address] [place], [place] [id number] Pinball Machine Repairer: Kd Page MD pH (U) 6.0 [pH] Normal 5.0-9.0 [facility] Comment on above: Performed By: #### U AX, UMICAO #### [facility] [address] [place], [place] [id number] Pinball Machine Repairer: Kd Page MD Protein Ql (U) Negative Normal NEG [facility] Comment on above: Performed By: #### U AX, UMICAO #### [facility] [address] [place], [place] [address] Pinball Machine Repairer: Kd Page MD Specific gravity (U) [Rel density] >1.030 High 1.010-1.020 [facility] Comment on above: Performed By: #### U AX, UMICAO #### [facility] [address] [place] [address] Pinball Machine Repairer: Kd Page MD Turbidity CLEAR Normal CLEAR [facility] Comment on above: Performed By: #### U AX, UMICAO #### [address] [place] [address] Pinball Machine Repairer: Kd Page MD Urobilinogen,Ur Normal Normal NORM [facility] Comment on above: Performed By: #### U AX, UMICAO #### [facility] [address] [place] [address] Pinball Machine Repairer: Kd Page MD Comment NOT REPORTED Normal [facility] Comment on above: Performed By: #### U AX, UMICAO #### [facility] [address] [place] [address] [place] [address] Pinball Machine Repairer: Kd Page MD Urinalysis Reflex to Culture Ordered By: Krishna Jefferson on 07-23-2019 Bilirubin Urine Negative NEGATIVE [facility] Work Phone: Color, UA YELLOW YELLOW [facility] Work Phone: Glucose, Ur Negative NEGATIVE [facility] Work Phone: Interpretation and review of laboratory results Abnormal [facility] Work Phone: Ketones Ql (U) TRACE Abnormal NEGATIVE [facility] Work Phone: Leukocyte esterase Test strip Ql (U) Negative NEGATIVE [facility] Work Phone: Nitrite, Urine Negative NEGATIVE [facility] Work Phone: pH, UA 6.0 [facility] [employer] Work Phone: Protein, UA Negative NEGATIVE [facility] Work Phone: Specific Plaza, UA >1.030 High [facility] [employer] Work Phone: Turbidity UA CLEAR CLEAR [facility] [employer] Work Phone: Urinalysis Comments NOT REPORTED [facility] [employer] Work Phone: Urine Hgb Negative NEGATIVE [facility] Work Phone: Urobilinogen, Urine Normal Normal [facility] Work Phone: Urinalysis,Microon [phone] Normal [facility] Comment on above: Performed By: #### U AX, UMICAO #### [facility] [address] [place] [address] [place] [place] [id number] Pinball Machine Repairer: Kd Page MD Bacteria LM.HPF (Urine sed) [#/Area] 1+ Abnormal [facility] Comment on above: Performed By: #### U AX, UMICAO #### [address] [place] [address] Pinball Machine Repairer: Kd Page MD Crystals LM Nom (Urine sed) 2 TO 5 Abnormal [facility] Comment on above: Result Comment: CALC IUM OXALATE Performed By: #### U AX, UMICAO #### [facility] [address] [place] [address] [place], [place] [id number] Pinball Machine Repairer: Kd Page MD Epithelial cells LM.HPF (Urine sed) [#/Area] 2 TO 5 Normal 0-25 [facility] Comment on above: Performed By: #### U AX, UMICAO #### [facility] [address] [place] [address] [place] [address] [employer]ball Machine Repairer: Kd Page MD Mucus Strands 3+ Abnormal NONE [facility] Comment on above: Performed By: #### U AX, UMICAO #### [facility] [address] [place] [address] Pinball Machine Repairer: Kd Page MD RBC (U) [#/Vol] 0 TO 2 Normal 0-2 [facility] Comment on above: Performed By: #### U AX, UMICAO #### [facility] [address] [place] [address] Pinball Machine Repairer: Kd Page MD WBC (U) [#/Vol] 0 TO 2 Normal 0-5 [facility] Comment on above: Performed By: #### U AX, UMICAO #### [facility] [address] [place] [id number] Pinball Machine Repairer: Kd Page MD Amorphous sediment LM Ql (Urine sed) NOT REPORTED Normal [facility] Comment on above: Performed By: #### U AX, UMICAO #### [facility] [address] [place] [id number] Pinball Machine Repairer: Kd Page MD Casts LM.LPF (Urine sed) [#/Area] NOT REPORTED Normal [facility] Comment on above: Performed By: #### U AX, UMICAO #### [facility] [address] [place] [address] Pinball Machine Repairer: Kd Page MD Epithelial, Renal NOT REPORTED Normal 0 [facility] Comment on above: Performed By: #### U AX, UMICAO #### [facility] [address] [place] [phone] Pinball Machine Repairer: dK Page MD Other Observations NOT REPORTED [facility] Comment on above: Performed By: #### U AX, UMICAO #### [facility] [address] [place] [id number] Pinball Machine Repairer: Kd Page MD Trichomonas NOT REPORTED Normal NONE [facility] Comment on above: Performed By: #### U AX, UMICAO #### [facility] [address] [place] [address] Pinball Machine Repairer: Kd Page MD Yeast LM Ql (Urine sed) NOT REPORTED Normal NONE [facility] Comment on above: Performed By: #### U CA HARDWICKO #### [facility] [address] [place] [address] Pinball Machine Repairer: Kd Page MD Vital Signs Date Time Vital Sign Value Performing Clinician Faci lity 05-26-2022 10:37-0400 Body height 165.1 cm Sanket Medina MD Work Phone: [facility] 05-26-2022 10:37-0400 Body mass index (BMI) [Ratio] 23.48 kg/m2 Sanket Medina MD Work Phone: [facility] 05-26-2022 10:37-0400 Body temperature 98.01 [degF] Sanket Medina MD Work Phone: [facility] 05-26-2022 10:37-0400 Body weight 64 kg Sanket Medina MD Work Phone: [facility] 05-26-2022 10:37-0400 Diastolic blood pressure 62 mm[Hg] Sanket Medina MD Work Phone: [facility] 05-26-2022 10:37-0400 Heart rate 104 /min Sanket Medina MD Work Phone: [facility] 05-26-2022 10:37-0400 Systolic blood pressure 120 mm[Hg] Sanket Medina MD Work Phone: [facility] 01-04-2020 10:15-0400 Pulse (Heart Rate) 60 /min [facility] [place] 01-04-2020 10:15-0400 Pulse Oximetry 97 % Jeannie Lucas [facility] 01-04-2020 10:10-0400 BP Diastolic 61 mm[Hg] Jeannie Lucas [facility] 01-04-2020 10:10-0400 BP Systolic 101 mm[Hg] Jeannie Lucas [facility] 01-04-2020 10:10-0400 Respiratory Rate 14 /min Jeannie Lucas [facility], [place] 01-04-2020 09:45-0400 Body Temperature 98.2 [degF] [facility] 01-04-2020 08:40-0400 BMI (Body Mass Index) 23.82 kg/m2 [facility] [place] 01-04-2020 08:40-0400 Body weight 66.95 kg [facility] 01-04-2020 08:40-0400 Height 167.6 cm [facility] 12-18-2019 08:54-0400 Body Temperature 98.1 [degF] [facility] [place] [place] 12-18-2019 08:54-0400 BP Diastolic 59 mm[Hg] [facility] [place] 12-18-2019 08:54-0400 BP Systolic 99 mm[Hg] [facility] [place] 12-18-2019 08:54-0400 Pulse (Heart Rate) 86 /min [facility] [place] 12-18-2019 08:54-0400 Pulse Oximetry 98 % [facility] [place] 12-18-2019 08:54-0400 Respiratory Rate 16 /min [facility] [place] [place] 12-15-2019 22:00-0400 BMI (Body Mass Index) 24.46 kg/m2 [facility] [place] 12-15-2019 22:00-0400 Body weight 66.68 kg [facility] [place] 12-15-2019 22:00-0400 Height 165.1 cm [facility] [place] 07-29-2019 16:39-0500 Respiratory rate 16 /min Tobias Hogan DO Work Phone: [employer] Work Phone: 07-29-2019 16:25-0500 SaO2% (BldA) [Mass fraction] 100 % Tobias Henningrov [employer] Work Phone: [employer] Work Phone: 07-29-2019 16:21-0500 Diastolic blood pressure 78 mm[Hg] Tobias Sotov [employer] Work Phone: [employer] Work Phone: 07-29-2019 16:21-0500 Systolic blood pressure 114 mm[Hg] Tobias Henningrov [employer] Work Phone: [employer] Work Phone: 07-29-2019 14:55-0500 Heart rate 66 /min Tobias Sotov [employer] Work Phone: [employer] Work Phone: 07-29-2019 13:05-0500 Body mass index (BMI) [Ratio] 19.64 kg/m2 Tobias Henningrov DO Work Phone: [employer] Work Phone: 07-29-2019 13:05-0500 Body temperature 98.29 [degF] Tobias Henningrov DO Work Phone: [employer] Work Phone: 07-29-2019 13:05-0500 Body weight 53.52 kg Tobias Henningrov [employer] Work Phone: [employer] Work Phone: 07-23-2019 21:40-0500 Body height 165.1 cm Venice Caballero MD Work Phone: [employer] Work Phone: 07-23-2019 21:40-0500 Body mass index (BMI) [Ratio] 19.14 kg/m2 Venice Caballero MD Work Phone: [employer] Work Phone: 07-23-2019 21:40-0500 Body temperature 98.6 [degF] Venice Caballero MD Work Phone: [employer] Work Phone: 07-23-2019 21:40-0500 Body weight 52.16 kg Venice Caballero MD Work Phone: [employer] Work Phone: 07-23-2019 21:40-0500 Diastolic blood pressure 63 mm[Hg] Venice Caballero MD Work Phone: [employer] Work Phone: 07-23-2019 21:40-0500 Heart rate 85 /min Venice Caballero MD Work Phone: [employer] Work Phone: 07-23-2019 21:40-0500 Respiratory rate 18 /min Venice Caballero MD Work Phone: [employer] Work Phone: 07-23-2019 21:40-0500 SaO2% (BldA) [Mass fraction] 99 % Venice Caballero MD Work Phone: [employer] Work Phone: 07-23-2019 21:40-0500 Systolic blood pressure 103 mm[Hg] Venice Caballero MD Work Phone: [employer] Work Phone: 07-23-2019 20:09-0500 Diastolic blood pressure 58 mm[Hg] [employer] Work Phone: 07-23-2019 20:09-0500 Heart rate 77 /min [employer] Work Phone: 07-23-2019 20:09-0500 SaO2% (BldA) [Mass fraction] 99 % [employer] Work Phone: 07-23-2019 20:09-0500 Systolic blood pressure 105 mm[Hg] [employer] Phone: 07-23-2019 19:06-0500 Body temperature 97.7 [degF] [employer] Phone: 07-23-2019 13:46-0500 Body weight 52.16 kg [employer] Phone: 07-23-2019 13:46-0500 Respiratory rate 18 /min [employer] Phone: Encounters Encounter Date Encounter Type Care Provider Facility Start: 07-21-2023 End: 07-22-2023 ambulatory Lorin Shanti Cleemput EMAIL MANAGER-MAIL PROCESSING ASSOCIATE Facility:[facility] Start: 06-27-2023 End: 06-27-2023 ambulatory [facility] Start: 06-09-2023 End: 06-10-2023 ambulatory Lorin Shanti Cleemput EMAIL MANAGER-MAIL PROCESSING ASSOCIATE Facility:[facility] Start: 05-30-2023 ambulatory Lorin Shanti Cleempu t EMAIL MANAGER-MAIL PROCESSING ASSOCIATE Facility:[facility] Start: 04-29-2023 End: 04-30-2023 ambulatory Lorin Shanti Cleemput EMAIL MANAGER-MAIL PROCESSING ASSOCIATE Facility:[facility] Start: 04-22-2023 ambulatory Jaquelin Schwab [facility] Work Phone: [facility] [place] Start: 04-22-2023 Patient encounter procedure Di arslan Schwab [facility] Work Phone: [facility] Start: 03-07-2023 End: 03-07-2023 ambulatory [facility] Start: 02-22-2023 End: 02-23-2023 ambulatory Lorin Shanti Cleemput EMAIL MANAGER-MAIL PROCESSING ASSOCIATE Facility:[facility] Start: 02-14-2023 End: 02-15-2023 ambulatory Lorin Shanti Cleemput EMAIL MANAGER-MAIL PROCESSING ASSOCIATE Facility:[facility] Start: 02-07-2023 End: 02-08-2023 ambulatory Lorin Shanti Cleemput EMAIL MANAGER-MAIL PROCESSING ASSOCIATE Facility:[facility] Start: 01-10-2023 End: 01-11-2023 ambulatory Lorin Shanti Cleemput EMAIL MANAGER-MAIL PROCESSING ASSOCIATE Facility:[facility] Start: 12-27-2022 End: 12-28-2022 ambulatory Katarina Healy [facility] Start: 12-27-2022 Patient encounter procedure Mi gregory Healy [facility]Pharm[facility] Start: 12-23-2022 End: 12-23-2022 ambulatory SU LAMAR [facility] Start: 12-21-2022 End: 12-22-2022 ambulatory Lorin Shanti Cleemput EMAIL MANAGER-MAIL PROCESSING ASSOCIATE Facility:[facility] Start: 12-09-2022 End: 12-10-2022 ambulatory Lorin Shanti Cleemput EMAIL MANAGER-MAIL PROCESSING ASSOCIATE [facility] Start: 12-09-2022 ambulatory Lorin Shanti Cleempu t EMAIL MANAGER-MAIL PROCESSING ASSOCIATE Facility:[facility] Start: 12-01-2022 ambulatory Graciela mcgregor PA-C Facility[facility] Start: 11-26-2022 End: 11-27-2022 ambulatory Lorin Shanti Cleemput EMAIL MANAGER-MAIL PROCESSING ASSOCIATE Facility:[facility] Start: 11-17-2022 ambulatory Lorin Shanti Cleempu t EMAIL MANAGER-MAIL PROCESSING ASSOCIATE Facility:[facility] Start: 11-15-2022 End: 11-16-2022 ambulatory Lorin Shanti Cleemput EMAIL MANAGER-MAIL PROCESSING ASSOCIATE Facility:[facility] Start: 11-11-2022 End: 11-12-2022 ambulatory Lorin Shanti Cleemput EMAIL MANAGER-MAIL PROCESSING ASSOCIATE Facility:[facility] Start: 11-01-2022 End: 11-02-2022 ambulatory Lorin Shanti Cleemput EMAIL MANAGER-MAIL PROCESSING ASSOCIATE Facility[facility] Start: 2022 End: 2022 Emergency department patient visit Lorin Shanti Cleemput EMAIL MANAGER-MAIL PROCESSING ASSOCIATE Facility:[facility] Start: 10-21-2022 ambulatory Lorin Shanti Cleempu t EMAIL MANAGER-MAIL PROCESSING ASSOCIATE Facility:[facility] Start: 10-18-2022 End: 10-18-2022 Emergency department patient visit Lorin Shanti Cleemput EMAIL MANAGER-MAIL PROCESSING ASSOCIATE Facility:[facility] Start: 10-07-2022 End: 10-08-2022 ambulatory Lorin Shanti Cleemput EMAIL MANAGER-MAIL PROCESSING ASSOCIATE [facility] Start: 10-05-2022 End: 10-06-2022 ambulatory Lorin Shanti Cleemput EMAIL MANAGER-MAIL PROCESSING ASSOCIATE Facility:[facility] Start: 08-18-2022 End: 08-19-2022 ambulatory Lorin Shanti Cleemput EMAIL MANAGER-MAIL PROCESSING ASSOCIATE Facility:[facility] Start: 08-16-2022 End: 08-17-2022 ambulatory Lorin Shanti Cleemput EMAIL MANAGER-MAIL PROCESSING ASSOCIATE Facility:[facility] Start: 08-09-2022 End: 08-10-2022 ambulatory Anson Patiño Facility:[facility] Start: 07-28-2022 End: 07-28-2022 Emergency department patient visit Lorin Shanti Cleemput EMAIL MANAGER-MAIL PROCESSING ASSOCIATE Facility:[facility] Start: 05-26-2022 ambulatory LORIN CLEEMPUT Facility:[facility] Start: 05-26-2022 End: 05-26-2022 Office outpatient new 60 minutes Sanket Medina MD Work Phone: [facility] [place] Comment on above: Focal epilepsy (Prim romeo Dx); Complicated migraine; Reversible cerebrovascular vasoconstriction syndrome Start: 05-11-2022 ambulatory LORIN CLEEMPUT Facility:[facility] Start: 03-29-2021 End: 03-29-2021 Emergency department patient visit Priyanka Angelo MD Facility:[facility] Start: 01-04-2020 End: 01-04-2020 Patient encounter procedure JEANNIE GARCIA [facility] Start: 01-04-2020 End: 01-04-2020 Subsequent hospital visit by physician Jeannie Garcia Work Phone: [facility] Start: 01-01-2020 End: 01-06-2020 Patient encounter procedure TATA REDDING [facility] Start: 01-01-2020 End: 01-05-2020 Subsequent hospital visit by physician Laura Vidalid19 Pat Screening Schedule [facility] Comment on above: Pre-op testing Start: 12-15-2019 End: 12-18-2019 Evaluation and management of inpatient VIELKA THAYER TRACY IV [facility] Start: 12-15-2019 End: 12-18-2019 Evaluation and management of inpatient Tobias Zavala Work Phone: [address] Onc/Med Surg Comment on above: Intussusception (HCC ) (Primary Dx); S/P laparoscopic surgery Start: 07-29-2019 End: 07-29-2019 Emergency department patient visit RIDGELY [facility] Start: 07-29-2019 End: 07-29-2019 Emergency department patient visit Tobias Soto Work Phone: [facility] Comment on above: Evaluation for remov al of FLYNN drains (Primary Dx); Intractable episodic headache, unspecified headache type; Nausea; Yeast vaginitis Start: 07-23-2019 End: 07-24-2019 Emergency department patient visit VENICE CABALLERO [facility] Start: 07-23-2019 End: 07-23-2019 Emergency department patient visit Venice Caballero MD Work Phone: [facility] Comment on above: Abscess, intra-abdom inal, postoperative (Primary Dx); Yeast infection Start: 07-23-2019 End: 07-23-2019 Emergency department patient visit [facility] Start: 07-23-2019 End: 07-23-2019 Emergency department patient visit [facility] Comment on above: Intra-abdominal absc ess (HCC) (Primary Dx) Procedures Date Procedure Procedure Detail Performing Clinician Start: 01-04-2020 DISCHARGE PATIENT VENICE CABALLERO Start: 01-04-2020 Level iv surg pathol ogy gross&microscopic exam VENICE CABALLERO Start: 01-04-2020 BEDREST VENICE Weiss Start: 01-04-2020 Continuous pulse oximetry VENICE CABALLERO Start: 01-04-2020 ENCOURAGE DEEP BREAT RANDA AND COUGHING VENICE CABALLERO Start: 01-04-2020 INITIATE OXYGEN THER APY PROTOCOL VENICE CABALLERO Start: 01-04-2020 NOTIFY PHYSICIAN (SPECIFY) VENICE CABALLERO Start: 01-04-2020 NURSING COMMUNICATION Anny CABALLERO Start: 01-04-2020 VITAL SIGNS VENICE Weiss Start: 01-01-2020 COVID-19 AMBULATORY SOBIA HERMELINDO HOGAN Start: 01-01-2020 COVID-19 AMBULATORY Darren Redding Work Phone: Start: 12-18-2019 INITIATE OXYGEN THER APY PROTOCOL VENICE CABALLERO Start: 12-18-2019 DISCHARGE PATIENT VENICE CABALLERO Start: 12-18-2019 INTAKE AND OUTPUT VENICE CABALLERO Start: 12-17-2019 DIET GENERAL VENICE GOFF R Start: 12-17-2019 MISCELLANEOUS NURSIN G CARE ORDER (SPECIFY) VENICE CABALLERO Start: 12-17-2019 TRANSFER PATIENT VENICE TAMEZ Start: 12-17-2019 End: 12-17-2019 LAPAROSCOPY EXPLORATORY Jeannie Weiss Del on Work Phone: Start: 12-17-2019 INITIATE OXYGEN THER APY PROTOCOL VENICE CABALLERO Start: 12-17-2019 INTAKE AND OUTPUT VENICE CABALLERO Start: 12-16-2019 INITIATE OXYGEN THER APY PROTOCOL VENICE CABALLERO Start: 12-16-2019 Radiologic exam abdo men 1 view VENICE FISHERBER Start: 12-16-2019 Comprehensive metabo lic panel VENICE FISHERBER Start: 12-16-2019 Radiologic exam abdo men 1 view Obduliobruna Harrison Work Phone: Start: 12-16-2019 BASIC METABOLIC PANE L W/ REFLEX TO MG FOR LOW K Malou Vidal Work Phone: Start: 12-16-2019 Blood count complete auto&auto difrntl wbc Malou Vidal Work Phone: Start: 12-16-2019 INTAKE AND OUTPUT VENICE CABALLERO Start: 12-15-2019 FULL CODE VENICE GOFF R Start: 12-15-2019 INTAKE AND OUTPUT VENICE CABALLERO Start: 12-15-2019 REASON FOR NO MECHAN ICAL VTE PROPHYLAXIS VENICE FISHERBER Start: 12-15-2019 INITIATE OXYGEN THER APY PROTOCOL VENICE CABALLERO Start: 12-15-2019 TOBACCO CESSATION EDUCATION VENICE HAILEY Start: 12-15-2019 VITAL SIGNS VENICE FISHERBE R Start: 12-15-2019 COVID-19 VENICE FISHERBE R Start: 12-15-2019 PATIENT STATUS (FROM ED OR OR/PROCEDURAL) VENICE CABALLERO Start: 12-15-2019 COVID-19 Trey roberts Work Phone: Start: 12-15-2019 Ct abdomen & pelvis w/contrast material VENICE CABALLERO Start: 12-15-2019 Ct abdomen & pelvis w/contrast material Trey Rubi Work Phone: Start: 12-15-2019 Assay of lipase VENICE ANN Start: 12-15-2019 Blood count complete auto&auto difrntl wbc VENICE CABALLERO Start: 12-15-2019 Comprehensive metabo lic panel VENICE CABALLERO Start: 12-15-2019 Assay of lipase Trey Rubi Work Phone: Start: 12-15-2019 Blood count complete auto&auto difrntl wbc Trey Rubi Work Phone: Start: 12-15-2019 Comprehensive metabo lic panel Trey Rubi Work Phone: Start: 07-29-2019 Drug screen quantita tive topiramate TOBIAS HOGAN Start: 07-29-2019 Quantitation drug no t elsewhere specified TOBIAS HOGAN Start: 07-29-2019 ED NURSING COMMUNICATION TOBIAS HOGAN Start: 07-29-2019 Radiologic exam ches t 2 views TOBIAS HOGAN Start: 07-29-2019 Blood count complete auto&auto difrntl wbc TOBIAS HOGAN Start: 07-29-2019 Gonadotropin chorion ic qualitative TOBIAS HOGAN Start: 07-29-2019 Ecg routine ecg w/le ast 12 lds w/i&r TOBIAS HOGAN Start: 07-29-2019 ED NURSING COMMUNICATION TOBIAS HOGAN Start: 07-29-2019 Radiologic exam ches t 2 views Tobias Hogan DO Work Phone: Start: 07-29-2019 Gonadotropin chorion ic qualitative Tobias Hogan DO Work Phone: Start: 07-29-2019 Ecg routine ecg w/le ast 12 lds w/i&r Tobias Hogan DO Work Phone: Start: 07-24-2019 IP CONSULT TO [facility] L SURGERY VENICE CABALLERO Start: 07-23-2019 Ct abdomen & pelvis w/contrast material TOBIAS HOGAN Start: 07-23-2019 Assay of lipase AARON HOGAN Start: 07-23-2019 Blood count complete auto&auto difrntl wbc TOBIAS HOGAN Start: 07-23-2019 Comprehensive metabo lic panel TOBIAS HOGAN Start: 07-23-2019 Urinalysis microscopic only TOBIAS HOGAN Start: 07-23-2019 Urnls dip stick/tabl et rgnt auto w/o microscopy TOBIAS HOGAN Start: 07-23-2019 SALINE LOCK IV SANTOS HOGAN Start: 07-23-2019 Ct abdomen & pelvis w/contrast material Krishna A Hammuda PA Work Phone: Start: 07-23-2019 Comprehensive metabo lic panel Krishna Butler Hammuda PA Work Phone: Start: 07-23-2019 Urinalysis microscopic only Krishna Butler Hammuda PA Work Phone: Start: 07-23-2019 Urnls dip stick/tabl et rgnt auto w/o microscopy Krishna A Hammuda PA Work Phone: Plan of Treatment Date Care Activity Detail Author Start: 05-05-2023 End: 05-05-2023 Patient encounter procedure 05/05/2023 2:30 PM EDT Office Visit [facility] [address] [facility] [address] [place] [address] Argentina Diane MD [address] [place] [address] [facility] Start: 03-25-2023 Influenza vaccination INFLUENZ A VACCINE (Season Ended) [facility] Start: 12-08-2022 End: 12-08-2022 Patient encounter procedure 12/08/2022 Office Visit Neurology Sanket Medina MD [address] [place] [address] [facility] [place] Start: 08-10-2022 End: 08-10-2022 Patient encounter procedure 08/10/2022 Office Visit Neurology Argentina Diane MD [address] [place] [address] [facility] [place] Start: 03-25-2022 Influenza vaccination INFLUENZA VACC INE (#1) [facility] Start: 03-25-2020 Influenza vaccination Flu vacc ine (Season Ended) [place], [place] Start: 03-25-2019 Influenza vaccination Flu vaccine (# 1) [facility] Phone: Start: 2009 Cervical cancer screen Cervical canc er screen [facility] Phone: Start: 2009 Screening for malign ant neoplasm of cervix [facility] Start: 10-25-2007 DTaP/Tdap/Td vaccine (1 - Tdap) DTaP/Tdap/Td vaccine (1 - Tdap) [place], [place] Start: 10-25-2007 Third diphtheria, tetanus and acellular pertussis (DTaP) vaccination TDAP (ADULT) [facility] Start: 2006 Tetanus vaccination TETANUS [facility] Start: 10-25-2003 HIV screen HIV screen [facility] Phone: Start: 10-25-2003 HIV screening [facility] Start: 10-25-1999 DTaP/Tdap/Td vaccine (1 - Tdap) DTaP/Tdap/Td vaccine (1 - Tdap) [facility] Phone: Start: 1989 Varicella vaccine (1 of 2 - 2-dose childhood series) Varicella vaccine (1 of 2 - 2-dose childhood series) [facility] Phone: Start: 04-25-1989 COVID-19 VACCINE (#1) COVID-19 VACCI NE (#1) [facility] Start: 1988 Hepatitis C screening HEPATITI S C VIRUS SCREENING [facility] Start: 1988 Tetanus vaccination TETANUS [facility] EKG 12 Lead EKG 12 Lead ECG STAT 07/29/2019 2:25 PM EST [facility] Work Phone: Initiate Oxygen Ther apy Protocol [facility] [place] Comment on above: Daily until disconti nued starting 12/15/2019 Daily until disconti nued starting 01/04/2020 End: 07-29-2019 Levetiracetam Level Levetiracetam Level Lab STAT One Time for 1 Occurrences starting 07/29/2019 until 07/29/2019 [employer] Work Phone: Comment on above: One Time for 1 Occur rences starting 07/29/2019 until 07/29/2019 Levetiracetam Level Levetiraceta m Level Lab STAT 07/29/2019 3:45 PM EST [employer] Phone: Phase I & II - meter ed glucose Phase I & II - metered glucose Point of Care Testing Routine As Needed until discontinued starting 01/04/2020 [facility] [place] Comment on above: As Needed until disc ontinued starting 01/04/2020 Surgical Pathology Surgical Path ology Lab Routine Release Upon Ordering for 1 Occurrences starting 01/04/2020 [facility] [place] Comment on above: Release Upon Orderin g for 1 Occurrences starting 01/04/2020 End: 07-29-2019 Topiramate Level Topiramate Level Lab Routine One Time for 1 Occurrences starting 07/29/2019 until 07/29/2019 [employer] Phone: Comment on above: One Time for 1 Occur rences starting 07/29/2019 until 07/29/2019 Topiramate Level Topiramate Leve l Lab STAT 07/29/2019 3:45 PM EST [employer] Work Phone: Immunizations Immunization Date Immunization Notes Care Provider [facility] 04-29-2021 influenza virus vaccine, unspecified formulation Sanket Medina MD Work Phone: [facility] Payers Date Payer Category Payer Medicaid [id number] 2022 Unknown [id number] 2021 Medicaid [facility] MEDICAID COM MUNITY PLAN [facility] MEDICAID COMMUNITY PLAN [id number] 2021-Present [address] [place] [address] [id number] 2021 Private Health Insurance 2014 Private Health Insurance [facility] xxxxxxxxx 2014-Present [phone] [address] [place] [address] xxxxxxxxx [id number] 2014 Private Health Insurance [id number] 1988 Unknown [id number] 2.16.840.1.404512.3.579.2. 173 1988 Unknown [id number] 2.16.840.1.139859.3.579.2. 175 1988 Unknown [id number] 2.16.840.1.563351.3.579.2. 175 1988 Unknown [id number] 2.16.840.1.438338.3.579.2. 196 1988 Unknown [id number] 2.16.840.1.781464.3.579.2. 594 1988 Unknown [id number] 2.16.840.1.258487.3.579.2. 594 1988 Unknown [id number] 2.16840.1.898242.3.579.2. 196 1988 Unknown [id number] 2.16.840.1.514868.3.579.2. 196 1988 Unknown [id number] 2.16.840.1.035983.3.579.2. 196 1988 Unknown [id number] 2.16.840.1.392634.3.579.2. 196 1988 Unknown [id number] 2.16.840.1.517716.3.579.2. 196 1988 Unknown [id number] 2.16.840.1.003241.3.579.2. 196 1988 Unknown [id number] 2.16.840.1.010362.3.579.2. 1988 Unknown [id number] 2.16.840.1.824609.3.579.2. 1988 Unknown [id number] 2.16.840.1.481704.3.579.2. 1988 Unknown [id number] 2.16.840.1.202889.3.579.2. 1988 Unknown [id number] 2.16840.1.138970.3.579.2. 1988 Unknown [id number] 2.16840.1.826139.3.579.2. 1988 Unknown [id number] 2.16840.1.017477.3.579.2. 1988 Unknown [id number] 2.16840.1.689514.3.579.2. 1988 Unknown [id number] 2.16840.1.876535.3.579.2. 1988 Unknown [id number] 2.16.840.1.366208.3.579.2. 1988 Unknown [id number] 2.16840.1.422966.3.579.2. 1988 Unknown [id number] 2.16.840.1.046175.3.579.2. 1988 Unknown [id number] 2.16.840.1.274227.3.579.2. 1988 Unknown [id number] 2.16.840.1.593246.3.579.2. 1988 Unknown [id number] 2.16.840.1.963206.3.579.2. 1988 Unknown [id number] 2.16.840.1.463011.3.579.2. 196 1988 Unknown [id number] 2.16.840.1.957344.3.579.2. 196 1988 Unknown [id number] 2.16.840.1.090762.3.579.2. 196 1988 Unknown [id number] 2.16.840.1.504233.3.579.2. 196 1988 Unknown [id number] 2.16.840.1.932396.3.579.2. 196 1988 Unknown [id number] 2.16.840.1.895368.3.579.2. 196 1988 Unknown [id number] 2.16.840.1.825287.3.579.2. 196 1988 Unknown [id number] 2.16.840.1.625574.3.579.2. 196 Social History Date Type Detail Facility Start: 07-29-2019 End: 12-18-2019 Tobacco smoking status WIIS Never smoker [employer] Phone: Start: 12-18-2019 End: 05-26-2022 Alcohol intake Ex-drinker (finding) [employer] Phone: Start: 07-23-2019 History SDOH Alcohol Frequency 1 [employer] Phone: Start: 1988 [facility] Phone: Exposure to SARS-CoV -2 (event) Unable to assess [facility] [employer] [place], [place] Start: 01-04-2020 Alcohol intake Lifetime non-d hi (finding) [facility] [place] Start: 1988 Sex Assigned At Female L [facility] Work Phone: Start: 12-29-[address] [facility] Ex-smoker [facility] History of tobacco use Current smoker [facility] History of tobacco use Cigarette Smoker O [facility] Start: 12-29-2021 Tobacco use and exposure Smokeless tobacco non-user [facility] Start: 05-26-2022 History of Social function [facility] Start: 05-26-2022 Tobacco use panel [facility] Start: 09-12-2022 Gender identity Identifies as female gender (finding) [facility] Goals Date Patient Goal Desired Activity /State Clinical Notes 07-23-2019 to 07-12-2023 Julio César Pineda - 04/22/2023 10:06 AM Heather Healy RPh,PharmD - 12/27/2022 2:48 PM Heather Healy RPh,PharmD - 12/27/2022 2:48 PM EDTJulio César Pineda - 12/27/2022 2:48 PM EDTPatient Instructions Note Date & Type Note Facility 07-12-2023 Note Referral from Soniya Rivero MD to see steam table associate for hypoglycemia. Phone number on file is not an active number and call could not be completed. Clinic phone number for dietitian appointment [phone]. [facility] 06-27-2023 Note Attestation signed by Daryn Mckee at 06/27/2023 3:20 PM By using the attestations below, the signing clinician agrees that I have read and verify that the documentation has been personally reviewed by me and ensure that the documentation accurately reflects the encounter. GC: I personally saw this patient on the day of the encounter, performed the mares portion(s) of the service and participated in the management and confirm the resident's documentation. Please note there may be an additional personal documentation from me. REASON FOR VISIT: Rachid Mojica is a 32 y.o. female who is being seen today for follow-up of reactive hypoglycemia HPI: Patient reports she underwent Daniela en Y gastric bypass in 2014 at [place], [place]. She lost about 150 lbs and has been able to maintain it since then. She reports she started having hypoglycemic episodes about 2 years ago and they have been increasing in frequency since then. Initially they used to happen with food but now even happen when she is fasting. During these episodes she gets lightheaded, blurry vision and shakiness. She feels hot and sometimes get palpitations. The symptoms start sometimes in the middle of the meal and sometimes immediately after finishing her meal. The episodes last for about 1 hour and either gets resolved on its own or she takes a glucose tablet. She states she had tried having small and frequent meals before, avoid simple sugars and have more fibre but she still very frequently gets these episodes. Because of the fear of hypoglycemia now she only eats one meal at bedtime. Reports no weight or medication changes. Also reports history of seizure disorder which was previously controlled but she has had about 10 episodes of break through seizure in the last 2 years. She has been using Dexcom for the last 2 years and states she has also confirmed low blood glucose numbers with fingerstick whenever Dexcom gave her an alarm. Reports Tuesday while working at the [employer] she got symptoms of hypoglycemia and during that episode some blood work was done. She is not sure what was checked and what was the result. Interval history: Patient was last seen in February 2023, started on acarbose 25 mg 3 times daily. She has not necessarily noticed any improvement in her symptoms but continues to experience hypoglycemia on daily basis which has been affecting her work routinely scheduled. Mid May her dose was increased to 50 mg 3 times a day without any added benefit Blood Glucose Monitoring Results, Interpretation, Report: Indication for CGM: Evaluate for hyperglycemia and hypoglycemia Glucometer: Method: [Downloaded] CGM: [DEXCOM G6]: % Time CGM is active (target above 90): Results/Impression/Conclusion: [] Basal/Bolus insulin imbalance with significant glycemic variability [] Overnight blood glucose reduction [] Fasting hypoglycemia [x] Postprandial hypoglyemia: after [] Breakfast [x] lunch [x] evening meal [] nightime snack [] Hypoglycemia due to over-correction [] Fasting hyperglycemia [] Postprandial hyperglycemia: after [] Breakfast [] lunch [] evening meal [] nightime snack [] Hyperglycemia due to missing the scheduled dose of insulin/glucose-lowering medication [] Physical activity-related hypoglycemia: [] before [] during [] after physical activity REVIEW OF SYSTEMS 12 point review of system negative except noted above. PHYSICAL EXAM: Vitals: 06/27/23 1328 BP: 114/72 BP Location: Right arm Patient Position: Sitting BP Cuff Size: Large adult Pulse: 109 SpO2: 96% Weight: 77.7 kg (171 lb 6.4 oz) Height: 1.651 m (5' 5 ) Wt Readings from Last 10 Encounters: 06/27/23 77.7 kg (171 lb 6.4 oz) 03/07/23 70.6 kg (155 lb 9.6 oz) 12/27/22 67 kg (147 lb 9.6 oz) 12/23/22 66.9 kg (147 lb 6.4 oz) Body mass index is 28.52 kg/m???. General appearance: Well appearing female in no apparent distress. HEENT: EOMI, oropharynx clear, mucous membranes moist. Neck: Supple Cardiac: Normal S1/S2. No murmurs/rubs/gallops. Respiratory: No respiratory distress Extremities: No lower extremity edema. Skin: anterior abdomen skin changes noticed with hx of gastric bypass Neuro: A & O x 3. Psych: Mood and affect are appropriate. ASSESSMENT/PLAN: Rachid Mojica presented for evaluation of postprandial/reactive hypoglycemia with history of gastric bypass surgery Daniela-en-Y in 2014 1. Reactive hypoglycemia -With patient's history of postprandial hypoglycemia in the setting of gastric bypass surgery we started acarbose 25 mg 3 times daily increased to 50 mg 3 times daily without any significant improvement - Patient continues to have frequent hypoglycemia predominantly after meals more so after the dinnertime - She has tri (more content not included)... [facility] 04-22-2023 History of Present illness Narrative [facility] RX OUTREACH ADVANCED: Call Information: Date and Time of Contact: 04/22/2023 10:08 AM Method of Contact: By Phone Contact Type: Prescriptions Contactor: [facility] OP Contactee: Patient Shipping/Pickup: Medicare B Refill?: No Medication Name: Ajovy 225 MG/1.5ML Delivery Method: Air Delivery Location: Home Signature Required: No Mailing/Pickup Date: 04/28/2023 Shipping Address: [address] Contact Info: Specialty ([place]) [phone] [facility] [phone] [facility] [phone] Greg [phone] Bedside Delivery ([facility]) [phone] documented in this encounter [facility] 03-07-2023 Note Attestation signed by Daryn Mckee at 03/08/2023 12:27 PM By using the attestations below, the signing clinician agrees that I have read and verify that the documentation has been personally reviewed by me and ensure that the documentation accurately reflects the encounter. GC: I personally saw this patient on the day of the encounter, performed the mares portion(s) of the service and participated in the management and confirm the resident's documentation. Please note there may be an additional personal documentation from me. Daryn Mckee MD REASON FOR VISIT: Rachid Mojica is a 32 y.o. female who is being seen today for follow-up of reactive hypoglycemia HPI: Patient reports she underwent Daniela en Y gastric bypass in 2014 at [place], [place]. She lost about 150 lbs and has been able to maintain it since then. She reports she started having hypoglycemic episodes about 2 years ago and they have been increasing in frequency since then. Initially they used to happen with food but now even happen when she is fasting. During these episodes she gets lightheaded, blurry vision and shakiness. She feels hot and sometimes get palpitations. The symptoms start sometimes in the middle of the meal and sometimes immediately after finishing her meal. The episodes last for about 1 hour and either gets resolved on its own or she takes a glucose tablet. She states she had tried having small and frequent meals before, avoid simple sugars and have more fibre but she still very frequently gets these episodes. Because of the fear of hypoglycemia now she only eats one meal at bedtime. Reports no weight or medication changes. Also reports history of seizure disorder which was previously controlled but she has had about 10 episodes of break through seizure in the last 2 years. She has been using Dexcom for the last 2 years and states she has also confirmed low blood glucose numbers with fingerstick whenever Dexcom gave her an alarm. Reports Tuesday while working at the [employer] she got symptoms of hypoglycemia and during that episode some blood work was done. She is not sure what was checked and what was the result. Interval history: Initial evaluation in December 2022, patient still noticing significant postprandial hyperglycemia followed by hypoglycemia with symptoms including lightheadedness, vision changes, fatigue. She is noticing hypoglycemia even without eating followed by hypoglycemia during the day without any significant fasting hypoglycemia Blood Glucose Monitoring Results, Interpretation, Report: Indication for CGM: Evaluate for hyperglycemia and hypoglycemia Glucometer: Method: [Downloaded] CGM: [DEXCOM G6]: % Time CGM is active (target above 90): Results/Impression/Conclusion: [ ] Basal/Bolus insulin imbalance with significant glycemic variability [ ] Overnight blood glucose reduction [ ] Fasting hypoglycemia [ X ] Postprandial hypoglyemia: after [ X ] breakfast [ X ] lunch [ X ] evening meal [ ] Hypoglycemia due to over-correction [ ] Fasting hyperglycemia [ ] Postprandial hyperglycemia: after [ ] breakfast [ ] lunch [ ] evening meal [ ] Physical activity-related hypoglycemia: [ ] before [ ] during [ ] after physical activity REVIEW OF SYSTEMS 12 point review of system negative except noted above. PHYSICAL EXAM: There were no vitals filed for this visit. Wt Readings from Last 3 Encounters: 12/27/22 67 kg (147 lb 9.6 oz) 12/23/22 66.9 kg (147 lb 6.4 oz) There is no height or weight on file to calculate BMI. General appearance: Well appearing female in no apparent distress. HEENT: EOMI, oropharynx clear, mucous membranes moist. Neck: Supple Cardiac: Normal S1/S2. No murmurs/rubs/gallops. Respiratory: No respiratory distress Extremities: No lower extremity edema. Skin: No skin lesions. Neuro: A & O x 3. Psych: Mood and affect are appropriate. ASSESSMENT/PLAN: Rachid Mojica presented for evaluation of postprandial/reactive hypoglycemia with history of gastric bypass surgery Daniela-en-Y in 2013 1. Hypoglycemia after GI (gastrointestinal) surgery -Patient is experiencing very frequent reactive hypoglycemia as noticed on CGM without any fasting hypoglycemia - Intake of uncooked starch has not helped her with symptom improvement - Current problem is affecting her work as well as driving - Random lab drawn blood glucose during the episode confirmed hypoglycemia at 51 mg/dL - We will start acarbose 25 mg 3 times a day with meals, if no significant improvement in symptoms noticed we will consider other treatment options - acarbose (Precose) 25 mg tablet; Take 1 tablet (25 mg) by mouth with breakfast, with lunch, and with evening meal. Dispense: 90 tablet; Refill: 2 2. Reactive hypoglycemia: (more content not included)... [facility] 01-06-2023 Note Patient's number has been unreachable. Will try calling again. [facility] 12-27-2022 Note Attestation signed by Daryn Mckee at 12/27/2022 6:27 PM By using the attestations below, the signing clinician agrees that I have read and verify that the documentation has been personally reviewed by me and ensure that the documentation accurately reflects the encounter. GC: I personally saw this patient on the day of the encounter, performed the mares portion(s) of the service and participated in the management and confirm the resident's documentation. Please note there may be an additional personal documentation from me. Brochures of hypoglycemia and gastric bypass related hypoglycemia management were provided to her. Daryn Mckee MD REASON FOR VISIT: Rachid Mojica is a 32 y.o. female who is being seen today for evaluation of Hypoglycemia. History since last visit on 12/23/22: Patient reports she underwent Daniela en Y gastric bypass in 2014 at [place], [place]. She lost about 150 lbs and has been able to maintain it since then. She reports she started having hypoglycemic episodes about 2 years ago and they have been increasing in frequency since then. Initially they used to happen with food but now even happen when she is fasting. During these episodes she gets lightheaded, blurry vision and shakiness. She feels hot and sometimes get palpitations. The symptoms start sometimes in the middle of the meal and sometimes immediately after finishing her meal. The episodes last for about 1 hour and either gets resolved on its own or she takes a glucose tablet. She states she had tried having small and frequent meals before, avoid simple sugars and have more fibre but she still very frequently gets these episodes. Because of the fear of hypoglycemia now she only eats one meal at bedtime. Reports no weight or medication changes. Also reports history of seizure disorder which was previously controlled but she has had about 10 episodes of break through seizure in the last 2 years. She has been using Dexcom for the last 2 years and states she has also confirmed low blood glucose numbers with fingerstick whenever Dexcom gave her an alarm. Reports Tuesday while working at the [facility] [employer] [employer] she got symptoms of hypoglycemia and during that episode some blood work was done. She is not sure what was checked and what was the result. Initial History: For the past 1.5-2 years, patient has been experiencing post-prandial hypoglycemia multiple times daily. She states that her blood sugar will elevate quickly after eating >180 and drop quickly after into the 50s. She has glucose tabs at home and takes 2-3 sometimes for her low sugar and it does not seem to work usually. Patient had OGTT done in last 6 months at [facility] where she states she had hyperglycemia followed by hypoglycemia. Blood Glucose Monitoring Results, Interpretation, Report: Indication for CGM: Evaluate for hyperglycemia and hypoglycemia CGM: [DEXCOM G6]: % Time CGM is active (target above 90): 100% 12/14/22- 12/27/22 83% in range 6% Low 5% Very Low. Results/Impression/Conclusion: Patient is experiencing very frequent post-prandial hypoglycemia. REVIEW OF SYSTEMS 12 point review of system negative except noted above. PHYSICAL EXAM: Vitals: 12/27/22 1558 BP: 110/71 BP Location: Right arm Patient Position: Sitting BP Cuff Size: Adult Pulse: 90 SpO2: 99% Weight: 67 kg (147 lb 9.6 oz) Height: 1.651 m (5' 5 ) Wt Readings from Last 3 Encounters: 12/23/22 66.9 kg (147 lb 6.4 oz) Body mass index is 24.56 kg/m???. General appearance: Well appearing female in no apparent distress. HEENT: EOMI, oropharynx clear, mucous membranes moist. Neck: Supple Cardiac: Normal S1/S2. No murmurs/rubs/gallops. Respiratory: No respiratory distress Extremities: No lower extremity edema. Skin: No skin lesions. Neuro: A & O x 3. Psych: Mood and affect are appropriate. ASSESSMENT/PLAN: Rachid Mojica has frequent hypoglycemia with hx of gastric bypass. Diagnoses and all orders for this visit: Hypoglycemia Hypoglycemia after GI (gastrointestinal) surgery History of gastric bypass - Patient's history and Dexcom data suggest a clinical diagnosis of post prandial/reactive hypoglycemia. - Advised the patient to get the results of her recent blood tests faxed to our clinic. If suggestive of Insulin mediated Hypoglycemia might need Imaging to rule out Insulinoma. - Will start with Lifestyle modification. Brochure provided. Advised to increase fiber intake. - Will follow up in 4 weeks, if no improvement will consider pharmacological treatment. Will start with acarbose. [facility] 06-05-2023 History of Present illness Narrative [facility]RE[facility]: Call Information: Date and Time of Contact: 12/27/2022 2:50 PM Method of Contact: By Phone Contact Type: Prescriptions Contactor: [facility] Contactee: Patient Contact Outcome: Left message and Follow-up (Ajovy refill / MMO) Contact Info: Specialty ([place]) [phone] [facility] [phone] [facility] [phone] Greg [phone] Bedside Delivery ([facility]) [phone] [facility]REACH [facility]: Call Information: Date and Time of Contact: 12/29/2022 12:55 PM Method of Contact: By Phone Contact Type: Prescriptions Contactor: [facility] Contactee: Patient Contact Outcome: Left message and Follow-up (Ajovy msot) Contact Info: Specialty ([place]) [phone] [facility] [phone] [facility] [phone] Greg [phone] Bedside Delivery ([facility]) [phone] [facility]: Call Information: Date and Time of Contact: 12/29/2022 1:32 PM Method of Contact: By Phone Contact Type: Prescriptions Contactor: Patient Contactee: [facility] Shipping/Pickup: Medicare B Refill?: No Medication Name: Ajovy 225MG /1.5ML Delivery Method: Air Delivery Location: Home Signature Required: No Mailing/Pickup Date: 12/30/2022 Shipping Address: [address] Contact Info: Specialty ([place]) [phone] [place] [phone] [facility] [phone] Greg [phone] Bedside Delivery ([facility]) [phone] [facility]: Call Information: Date and Time of Contact: 12/29/2022 1:32 PM Contact Info: Specialty ([place]) [phone] [place] [phone] [facility] [phone] [facility] [phone] Bedside Delivery ([facility]) [phone] I performed phone call visit for Rachid Mojica with patient regarding Ajovy prescription. I reviewed the patient's medication list, labs, adherence, and reviewed medication list for drug interactions. Patient/patient's caregiver's understanding of medication was assessed and counseling and education were completed. Rachid Mojica is Not New to therapy. The criteria below were discussed with the patient to ensure the appropriate level of follow-up and monitoring for ongoing use. Confirmed Outpatient Visit with provider in the last 12 months o Yes Confirmed last Outpatient Visit indicates to continue medication currently prescribed and patient confirms no dose changes o Yes Confirmed no worsening symptoms of disease state (increased frequency of migraine) o Yes Confirmed no Adverse Drug Reactions o Yes Confirmed no significant gaps in refill history in last 3 doses o Yes Confirmed no change in health status (>90 days since IBD ED visit/ hospitalization/ surgery, , etc) o Yes IMPRESSION/ PLAN: 1. Patient demonstrated understanding of Ajovy and doing well on current dose and frequency. Next dose due 01/03/23. Provider visits: Patient has seen their provider in the last 12 months. Patient is not currently scheduled for a follow-up visit with a provider. Patient was not routed to schedule future appointment with provider I spent 10 minutes in this patient visit with >50% of the time focused on medication management and counseling. The following Clinical Intervention(s) occurred during today's visit: Name: Katarina Healy RPh,[place] Date/Time: 12/29/2022 1:32 PM I performed phone call visit for Rachid Mojica with patient regarding Ajovy prescription. I reviewed the patient's medication list, labs, adherence, and reviewed medication list for drug interactions. Patient/patient's caregiver's understanding of medication was assessed and counseling and education were completed. Rachid Mojica is Not New to therapy. The criteria below were discussed with the patient to ensure the appropriate level of follow-up and monitoring for ongoing use. Confirmed Outpatient Visit with provider in the last 12 months ? Yes Confirmed last Outpatient Visit indicates to continue medication currently prescribed and patient confirms no dose changes ? Yes Confirmed no worsening symptoms of disease state (increased frequency of migraine) ? Yes Confirmed no Adverse Drug Reactions ? Yes Confirmed no significant gaps in refill history in last 3 doses ? Yes Confirmed no change in health status (>90 days since IBD ED visit/ hospitalization/ surgery, , etc) ? Yes IMPRESSION/ PLAN: 1. Patient demonstrated understanding of Ajovy and doing well on current dose and frequency. Next dose due 01/03/23 2. Provider visits: Patient has seen their provider in the last 12 months. Patient is not currently scheduled for a follow-up visit with a provider. Patient was not routed to schedule future appointment with provider I spent 10 minutes in this patient visit with >50% of the time focused on medication management and counseling. The following Clinical Intervention(s) occurred during today's visit: Name: Jaquelin Schwab RPh Date/Time: 12/29/2022 1:32 PM documented in this encounter [facility] 12-27-2022 Miscellaneous Notes Addended by: JAQUELIN SCHWAB on: 12/29/2022 01:41 PM Modules accepted: Orders documented in this encounter [facility] 12-27-2022 Note Addended by: JAQUELIN SCHWAB on: 12/29/2022 01:41 PM Modules accepted: Orders [facility] 12-27-2022 Note Addended by: JAQUELIN SCHWAB on: 12/29/2022 01:41 PM Modules accepted: Orders [facility] 12-27-2022 Note Addended by: JAQUELIN SCHWAB on: 12/29/2022 01:41 PM Modules accepted: Orders [facility] 12-27-2022 Note Addended by: JAQUELIN SCHWAB on: 12/29/2022 01:41 PM Modules accepted: Orders [facility] 12-23-2022 Note REASON FOR VISIT: Rachid Mojica is a 32 y.o. female who is being seen today in consultation at the request of Lorin Traylor NP for evaluation of her hypoglycemia. Patient had gastric sleeve surgery in 2014. Patient has no hx of diabetes even prior to surgery, doesn't take any diabetes medications. For the past 1.5-2 years, patient has been experiencing post-prandial hypoglycemia multiple times daily. She states that her blood sugar will elevate quickly after eating >180 and drop quickly after into the 50s. She has glucose tabs at home and takes 2-3 sometimes for her low sugar and it does not seem to work usually. She has been trying to just ride out the lows. Patient is symptomatic with getting sweaty and shaky. Patient had OGTT done in last 6 months at [facility] where she states she had hyperglycemia followed by hypoglycemia. She has tried multiple dietary changes to manage hypoglycemia including avoiding all simple sugars, increasing fiber and complex carbs, eating small frequent meals, eating slowly, and chewing her food a lot. Lately, patient has not been eating much, only dinner in order to avoid dropping low. Patient drove about an hour to be at this appointment and is disappointed that I do not have any further suggestions and that she will have to come back to see Dr. Mckee or fellow. Daily medications include keppra 500mg for hx of epilepsy and Ajovy for migraines. Blood Glucose Monitoring Results, Interpretation, Report: Indication for CGM: Evaluate for hyperglycemia and hypoglycemia CGM: [DEXCOM G6]: % Time CGM is active (target above 90): Results/Impression/Conclusion: Patient is experiencing very frequent post-prandial hypoglycemia. No fasting hypoglycemia. REVIEW OF SYSTEMS Review of Systems Constitutional: Negative for appetite change, fatigue and unexpected weight change. Eyes: Negative for visual disturbance. Cardiovascular: Negative for chest pain. Gastrointestinal: Negative for abdominal pain, constipation, diarrhea, nausea and vomiting. Endocrine: Negative for cold intolerance, heat intolerance, polydipsia, polyphagia and polyuria. Genitourinary: Negative for dysuria. Neurological: Negative for numbness. Past Medical History: Diagnosis Date Seizure (CMS/HCC) Past Surgical History: Procedure Laterality Date MRA HEAD WO IV CONTRAST 12/09/2021 MRA HEAD WO IV CONTRAST 12/09/2021 Current Outpatient Medications: amitriptyline (Elavil) 25 mg tablet, , Disp: , Rfl: cholecalciferol (Vitamin D-3) 10 MCG (400 UNIT) tablet, Take 1 tablet by mouth in the morning., Disp: , Rfl: Dexcom G6 Collector misc, , Disp: , Rfl: Dexcom G6 Sensor device, , Disp: , Rfl: Dexcom G6 Transmitter device, , Disp: , Rfl: dexmethylphenidate XR (Focalin XR) 20 mg 24 hr capsule, , Disp: , Rfl: FLUoxetine (PROzac) 20 mg capsule, Take 20 mg by mouth in the morning., Disp: , Rfl: fremanezumab (Ajovy Syringe) 225 mg/1.5 mL prefilled syringe, Inject 225 mg under the skin every 30 (thirty) days., Disp: , Rfl: gabapentin (Neurontin) 300 mg capsule, , Disp: , Rfl: levETIRAcetam (Keppra) 500 mg tablet, , Disp: , Rfl: multivitamin capsule, Take by mouth., Disp: , Rfl: alcohol swabs (Alcohol Prep Pads) pads, medicated, Use to check blood sugar., Disp: 300 each, Rfl: 3 blood sugar diagnostic (OneTouch Ultra Test) strip, Use to check blood sugar for hypoglycemia., Disp: 300 strip, Rfl: 2 blood-glucose meter (OneTouch Ultra2 Meter) [facility], Use to check blood sugar., Disp: 1 each, Rfl: 0 glucose 4 gram chewable tablet, Chew 4 tablets (16 g) if needed each day for low blood sugar., Disp: 50 tablet, Rfl: 3 lancets (Comfort Lancets) mis, Use to check blood sugar for hypoglycemia., Disp: 200 each, Rfl: 3 No Known Allergies No family history on file. reports that she has never smoked. She has never used smokeless tobacco. She reports that she does not drink alcohol and does not use drugs. PHYSICAL EXAM: Vitals: 12/23/22 1425 BP: 101/66 BP Location: Right arm Patient Position: Sitting BP Cuff Size: Adult Pulse: 102 SpO2: 97% Weight: 66.9 kg (147 lb 6.4 oz) Wt Readings from Last 3 Encounters: 12/23/22 66.9 kg (147 lb 6.4 oz) There is no height or weight on file to calculate BMI. General appearance: Well appearing female in no apparent distress. HEENT: EOMI, oropharynx clear, mucous membranes moist. Neck: Supple Cardiac: mild tachycardia Respiratory: No respiratory distress currently Extremities: No lower extremity edema. No foot deformities. Skin: No skin lesions. No lipohypertrophy at insulin injection sites. Neuro: A & O x 3. Psych: Mood and affect are appropriate. ASSESSMENT/PLAN: Rachid Mojica has frequent hypoglycemia with hx of gastric bypass. Dexcom readings and patient hx lead to possible dx of late dumping syndrome or postprandial hyperinsulinemic hypoglycemia. Diagnoses and all orders for this visit: Hypoglycemia - Gluco (more content not included)... [facility] 05-26-2022 History of Present illness Narrative [facility] Comprehensive Epilepsy Center HISTORY OF PRESENT ILLNESS Rachid Mojica is a 31 y.o. right handed female with a history of chronic intractable migraines complicated with reversible vasoconstriction syndrome (RCVS), recent event of SAH sec to RCVS who presents to Comprehensive [facility]psy Center at [facility] for establishing the care taking management of seizures. PERTINENT SEIZURE HISTORY Seizure History: Onset: Her first reported seizure was around age of 14 yrs, went without having any seizure until early 20's and after 3 rd seizure she started was given diagnosis of epilepsy, started on anti seizure drug therapy. Semiology : Starts with dazed and spacy feeling in the head, speech impairment where words are not coming which quickly progress into loud vocalization, whole body stiffening and convulsion like activity, some of them are complicated with tongue bite followed by brief post ictal confusion and disorientation. Had less then 10 seizures in total Duration of seizure : few minutes Denies any well defined prodrome or aura (visual, auditory or olfactory hallucinations, taste sensation, jeremy vu etc..) Seizure occurrence time: Denies any diurnal or nocturnal (either during sleep or upon awakening) pattern. Triggers: Denies any known triggers like stress, sleep deprivation, menses, flashing lights etc.. Frequency: Last one reported six months ago Longest duration of seizure freedom: >3 yrs History of status epilepticus : No documented history of SE or history for cluster of seizures. Seizure risk factors: Developmental delay: No. Born on term thorough normal vaginal delivery. Achieved developmental milestones (language and motor milestones) on time. Denies any educational difficulties in school. History of febrile seizures: No. Brain infection (Meningitis or encephalitis) : No. Stroke : No. Head injury complicated with LOC : No. Alcohol withdrawal seizures : No. Use of cocaine or other recreational drugs: No. Family history of epilepsy: No. Seizure related complications: Cognitive impairment: Yes. Struggles with short term memory and word finding difficulties. Seizure related physical injuries: Denies any bruise, laceration, burn and fracture. Motor vehicle accident: Denies any history of seizure related motor vehicle accident. Mood symptoms: Complains of anxiety. Sleep symptoms: Denies any insomnia or excessive sleepiness. 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) : s/p hysterectomy for uncontrolled bleeding Anti-seizure drug (ASD) history: Current ASD: LEV 1000 mg BID and Topamax 100 mg BID (primarily used for migraine prophylaxis) Past ASD : Vimpat (side effect of vivid dreams) Rescue ASD : None PERTINENT LABS, NEURODIAGNOSTIC STUDIES, NEUROIMAGING AND NEUROPSYCHOLOGICAL TESTING Prior evaluation: MRI brain : Reportedly negative for epileptogenic lesion EEG : Had prolonged EEG monitoring last year (report is not available) Nuclear imaging : None REVIEW OF SYSTEMS As mentioned in HPI PHYSICAL EXAM BP 120/62 (BP Location: Left arm, BP Position: Sitting) Pulse 104 Temp 98 F (36.7 C) (Infrared) Ht 1.651 m (5' 5 ) Wt 64 kg (141 lb 1.6 oz) BMI 23.48 kg/m Smoking Status Former General appearance: neat and pleasant to interact. Skin: No obvious cutaneous signs suggestive of neurocutaneous disorder. Head: Normal head circumference and facial features. Cardiovascular: Regular rate and rhythm. Lungs: Clear to auscultation bilaterally Mental status: intact to conversation for orientation to person, place and time, fund of knowledge, recent and remote memory, concentration and language. Neurological examination: CN II : Pupils: equal, round, reactive to light. Intact visual field. CN III, IV and : Extra ocular muscle movements intact with no nystagmus. CN V: facial sensation is intact. CN VII: Facial movement and sensation full and symmetric CN VIII: Hearing intact to finger rub bilaterally CN IX and X: Symmetric palatal elevation. CN XI: Sternocleidomastoid strength intact CN XII: Tongue midline Motor : Normal motor bulk and tone Motor strength SA EF/E WF/E FF/E/A HF/E KF/E ADF R 5 5/5 5/5 5/ 5/ 5 5/5 5 5 L 5 5/5 5/5 5/ 5/ 5 5/5 5 5 No pronator drift. Muscle stretch reflexes Bi BR Pat Ank R 2+ 2+ 2+ 2+ L 2+ 2+ 2+ 2+ Sensory: Sensation intact to pin prick, light touch and vibration in four extremities Gait and cerebellar testing: Gait is a normal, narrow based gait. Coordination is intact to finger to nose testing. 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 We will maintain on current regimen of Keppra considering controlled nature of seizures. Seizure rescue therapy - Nayzilam 5 mg as needed for seizures Taking cognitive side effects which is likely Topamax related side effect. Recommend cutting down the morning dose to 50 mg and continue with 100 mg in pm. Also cautioned taking risk of seizure recurrence during this period. She is also referred to Neurology- Headache clinic - for management of chronic migraines/RCVS and alternative to Topamax. Please be mindful of seizure precautions: NO SWIMMING, NO UNMONITORED BATHS, and, in general, no activities in which a sudden loss of consciousness could potentially cause severe injury (horseback riding, climbing trees, etc). Seizure related First Aid: Should a seizure or seizure-like episode begin, please lay them on their side, DON'T place anything in their mouth, and someone should be timing it. Any seizure in which it lasts longer than 5 minutes, or a seizure cluster longer than 5 minutes without complete recovery in between seizures, ANY seizure with breathing problems regardless of duration, and/or you need to give versed, these are all reasons why you need to go to the Emergency Room for assessment (call 911). Sanket Medina MD [employer] Specialist of Neurology [facility] Department of Neurology - Epilepsy Division [address] [place] [address] - 7th floor [place] [id number] . Total time to complete the visit : 60 minutes (record review, face to face encounter and documentation) . documented in this encounter [facility] 05-26-2022 Instructions Sanket Medina MD - 05/26/2022 11:00 AM EDT Topamax only half tab in morning and full tablet Headache clinic referral documented in this encounter [facility] 07-29-2019 Hospital Discharge instructions Tobias Hogan DO - 07/29/2019 Return to the Emergency Department immediately if you develop a fever, vomiting, worsening pain, worsening drainage from the FLYNN drain, or you have any other concerns. Please follow up with your surgeon in 1-2 days. The following attachments cannot be sent through Care Everywhere.Vaginal Yeast Infection (Chinese)documented in this encounter [employer] Phone: 07-23-2019 Hospital Discharge instructions Jose Watson DO - 07/23/2019 If given narcotics (opiates) during this Emergency Department visit, please do not drink, drive or operate any machinery for at least 4 6 hours. Avoid eating any spicy food, milk type products or drinks that have caffeine in it. Take all medications as prescribed. For pain use ibuprofen (Motrin) or acetaminophen (Tylenol), unless prescribed medications that have acetaminophen in it. You can take over the counter acetaminophen tablets (1 2 tablets of the 500-mg strength every 6 hours) or ibuprofen tablets (2 tablets every 4 hours). PLEASE RETURN TO THE EMERGENCY DEPARTMENT IMMEDIATELY for worsening symptoms, or if you develop any concerning symptoms such as: high fever not relieved by acetaminophen (Tylenol) and/or ibuprofen (Motrin), chills, shortness of breath, chest pain, persistent nausea and/or vomiting, numbness, weakness or tingling in the arms or legs or change in color of the extremities, changes in mental status, persistent headache, blurry vision. Return within 8 12 hours if you have any of the following: worsening of pain in your abdomen, no food sounds good to you, you continue to vomit, pain goes to your back, have pain in the abdomen when going over a bump in the car or when you jump up and down, develop vaginal bleeding or discharge, inability to urinate, unable to follow up with your physician, or other any other care or concern. documented in this encounter [employer] Phone: Evaluation note Diagnosis Intra-abdominal abscess (HCC)- Primary Peritoneal abscess documented in this encounter [employer] Phone: evaluation note* Diagnosis Abscess, intra-abdominal, postoperative- Primary Other postoperative infection Yeast infection Other and unspecified mycoses documented in this encounter [employer] Phone: evaluation note* Diagnosis Evaluation for removal of FLYNN drains- Primary Other specified aftercare following surgery Intractable episodic headache, unspecified headache type Nausea Nausea alone Yeast vaginitis Candidiasis of vulva and vagina documented in this encounter [employer] Phone: evaluation note* Diagnosis Focal epilepsy- Primary Localization-related (focal) (partial) epilepsy and epileptic syndromes with simple partial seizures, without mention of intractable epilepsy Complicated migraine Migraine with aura, without mention of intractable migraine without mention of status migrainosus Reversible cerebrovascular vasoconstriction syndrome Other ill-defined cerebrovascular disease [facility] Consultation (Urgent) - New Request Specialty Diagnoses / Procedures Referred By Clint mora Referred To Contact Neurology Diagnoses Complicated migraine Reversible cerebrovascular vasoconstriction syndrome Sanket Medina MD [address] [place] [address] Referral ID Status Reason Start Date Expiration Date V isits Requested Visits Authorized [id number] New Request 05/26/2022 06/20/2023 1 1 [facility] Discharge Instructions * Instructions* Obdulio Harrison DO - 12/18/2019 Patient Discharge Instructions Discharge Date: 12/18/2019 HYGEINE: Ok to shower, no soaking in a tub/pool until seen at your follow up appointment. Clean incision daily with gentle soap and water, do not use alcohol/peroxide or any harsh cleansers. DRIVING: No driving while taking narcotic medications or while in pain ACTIVITY: No lifting greater than 10lbs for 6 weeks or any strenuous activity. DIET: Resume your normal diet as advised by your PCP. MEDICATIONS: Take all medications as prescribed. SPECIAL INSTRUCTIONS: Follow up with Dr. Garcia in 7-14 days, call the clinic for appointment. Call sooner if fever above 100.4 degrees Farenheit, increase in swelling or redness, thick purulent discharge or pain not controlled with medications. documented in this encounter* Instructions* Aleyda Bagley, RN - 01/04/2020 POST-ENDOSCOPY INSTRUCTIONS 1. ACTIVITY No driving, operating machinery, or making important decisions for 24 hours. Resume normal activity after 24 hours. You may return to work after 24 hours. 2. DIET EGD: Resume your usual diet unless specified below. Diet Modification: Regular 3. MEDICATIONS (Do not consume alcohol, tranquilizers, or sleeping medications for 24 hours unless advised by your physician) Resume your usual medications 4. PHYSICIAN FOLLOW-UP Please continue with your previously scheduled appointments See your primary care physician as planned. 6. NORMAL CHANGES YOU MAY EXPERIENCE AFTER ENDOSCOPY: EGD: Sore throat, some abdominal pain and cramping. 7. CALL YOUR PHYSICIAN IF YOU EXPERIENCE ANY OF THE FOLLOWING A. Passing blood rectally or vomiting blood (color may be red or black) B. Severe abdominal pain or tenderness (that is not relieved by passing air) C. Fever, chills, or excessive sweating D. Persistent nausea or vomiting E. Redness or swelling at the IV site If you have additional questions, PLEASE call your doctor or the [facility] at documented in this encounter History of Present Illness * Jacque, Sierra, RN - 12/18/2019 3:25 PM EDT Patient given discharge instructions. All questions answered. Patient ambulated off unit for discharge. * Corina Juárez - 12/18/2019 12:19 PM EDT CLINICAL PHARMACY NOTE: MEDS TO [facility] Select Patient?: No Total # of Prescriptions Filled: 2 The following medications were delivered to the patient: roxicodone carla Total # of Interventions Completed: 0 Time Spent (min): 0 Additional Documentation: * Obdulio Harrison DO - 12/18/2019 7:13 AM EDT General Surgery: Daily Progress Note PATIENT NAME: Rachid Mojica TODAY'S DATE: 12/18/2019, 7:13 AM CC: Sore at incision SUBJECTIVE: Pt seen and examined at bedside.no acute events overnight. Tolerating general diet w/out n/v. Afebrile. OBJECTIVE: VITALS: BP 111/62 Pulse 75 Temp 97.9 F (36.6 C) (Oral) Resp 16 Ht 5' 5 (1.651 m) Wt 147 lb (66.7 kg) SpO2 95% BMI 24.46 kg/m INTAKE/OUTPUT: Intake/Output Summary (Last 24 hours) at 12/18/2019 0713 Last data filed at 12/17/2019 1425 Gross per 24 hour Intake 100 ml Output 90 ml Net 10 ml PHYSICAL EXAM: General Appearance: awake, alert, oriented, in no acute distress HEENT: Normocephalic, atraumatic, mucus membranes moist Heart: s1+s2 Lungs: equal and symmetric chest rise/fall, non-labored Abdomen:soft, nd, attp, incisions c/d/i w/ skin glue Extremities: No cyanosis, pitting edema, rashes noted. Skin: Skin color, texture, turgor normal. No rashes or lesions. Data: CBC with Differential: Lab Results Component Value Date WBC 5.8 12/16/2019 RBC 4.36 12/16/2019 HGB 13.5 12/16/2019 HCT 41.6 12/16/2019 PLT 154 12/16/2019 MCV 95.4 12/16/2019 MCH 31.0 12/16/2019 MCHC 32.5 12/16/2019 RDW 12.2 12/16/2019 LYMPHOPCT 41 12/16/2019 MONOPCT 9 12/16/2019 BASOPCT 1 12/16/2019 MONOSABS 0.51 12/16/2019 LYMPHSABS 2.38 12/16/2019 EOSABS 0.26 12/16/2019 BASOSABS 0.05 12/16/2019 DIFFTYPE NOT REPORTED 12/16/2019 BMP: Lab Results Component Value Date NA 137 12/16/2019 K 3.8 12/16/2019 CL 103 12/16/2019 CO2 21 12/16/2019 BUN 9 12/16/2019 LABALBU 4.0 12/15/2019 CREATININE 0.55 12/16/2019 CALCIUM 8.5 12/16/2019 GFRAA >60 12/16/2019 LABGLOM >60 12/16/2019 GLUCOSE 83 12/16/2019 Radiology Review: KUB reviewed, non-dilated sb, with contrast progression to colon. ASSESSMENT: Active Hospital Problems Diagnosis Date Noted Intussusception intestine (HCC) [K56.1] 12/15/2019 1. 29 y.o. female h/o RnY GB, perforated marginal ulcer?, presents with intusception of J-J anastomosis. POD#1 diagnostic laparoscopy with pexy of the J-J. Plan: 1. General diet 2. Tylenol, darryl prn 3. Saline lock IVF 4. D/c home today * Maddy Shaver RN - 12/17/2019 2:[address] leiva notified of continued itching-orders given and may dc to room * Maddy Shaver RN - 12/17/2019 1:[address] leiva notified of itching-pt states I usual itch after any narcotics-orders given/notified of nausea-orders given * Jeannie Garcia DO - 12/17/2019 11:06 AM EDT [facility] 4C ONC/MED SURG [address] [facility] [address] Dept: [phone] Loc: [phone] Bariatrics: Asked to see patient today regarding prior bariatric surgery and intussusception. Patient admitted 12/14 after abdominal pain started last week. She states she has episodes that cause vomiting and extreme sharp pain that come and go. She was admitted and underwent repeat CT showing intussusception. She states the pain is not resolving and she also hurts on her right abdomen. She had gastric bypassin the past and subsequently had a perforated GJ ulcer approximately 2.5 months ago in [place]. Primary surgery done in [place]. BP (!) 95/46 Pulse 68 Temp 97.9 F (36.6 C) (Oral) Resp 18 Ht 5' 5 (1.651 m) Wt 147 lb (66.7 kg) SpO2 98% BMI 24.46 kg/m Abdom: Soft, non distended, fullness on the left, but some rebound from the right Labs: 12/16/2019 6:14 AM - Abner, silvio Incoming Lab Results From [facility] Component Value Ref Range & Units Status Collected Lab WBC 5.8 3.5 - 11.3 k/uL Final 12/16/2019 6:00 AM [facility] RBC 4.36 3.95 - 5.11 m/uL Final 12/16/2019 6:00 AM [facility] Hemoglobin 13.5 11.9 - 15.1 g/dL Final 12/16/2019 6:00 AM [facility] Hematocrit 41.6 36.3 - 47.1 % Final 12/16/2019 6:00 AM [facility] MCV 95.4 82.6 - 102.9 fL Final 12/16/2019 6:00 AM [facility] MCH 31.0 25.2 - 33.5 pg Final 12/16/2019 6:00 AM [facility] MCHC 32.5 28.4 - 34.8 g/dL Final 12/16/2019 6:00 AM [facility] RDW 12.2 11.8 - 14.4 % Final 12/16/2019 6:00 AM [facility] [place] Platelets 154 138 - 453 k/uL Final 12/16/2019 6:00 AM [facility] MPV 10.6 8.1 - 13.5 fL Final 12/16/2019 6:00 AM [facility] NRBC Automated 0.0 0.0 per 100 WBC Final 12/16/2019 6:00 AM [facility] Differential Type NOT REPORTED Final 12/16/2019 6:00 AM [facility] WBC Morphology NOT REPORTED Final 12/16/2019 6:00 AM [facility] RBC Morphology NOT REPORTED Final 12/16/2019 6:00 AM [facility] [place] Platelet Estimate NOT REPORTED Final 12/16/2019 6:00 AM [facility] Seg Neutrophils 44 36 - 65 % Final 12/16/2019 6:00 AM [facility] Lymphocytes 41 24 - 43 % Final 12/16/2019 6:00 AM [facility] Monocytes 9 3 - 12 % Final 12/16/2019 6:00 AM [facility] Eosinophils % 5High 1 - 4 % Final 12/16/2019 6:00 AM [facility] Basophils 1 0 - 2 % Final 12/16/2019 6:00 AM [facility] [place] Immature Granulocytes 0 0 % Final 12/16/2019 6:00 AM [facility] [place] Segs Absolute 12/16/2019 6:31 AM - Abner, Mhpn Incoming Lab Results From [facility] Component Value Ref Range & Units Status Collected Lab Glucose 83 70 - 99 mg/dL Final 12/16/2019 6:00 AM [facility] BUN 9 6 - 20 mg/dL Final 12/16/2019 6:00 AM [facility] CREATININE 0.55 0.50 - 0.90 mg/dL Final 12/16/2019 6:00 AM [facility] [place] Bun/Cre Ratio NOT REPORTED 9 - 20 Final 12/16/2019 6:00 AM [facility] [place] Calcium 8.5Low 8.6 - 10.4 mg/dL Final 12/16/2019 6:00 AM [facility] Sodium 137 135 - 144 mmol/L Final 12/16/2019 6:00 AM [facility] Potassium 3.8 3.7 - 5.3 mmol/L Final 12/16/2019 6:00 AM [facility] Chloride 103 98 - 107 mmol/L Final 12/16/2019 6:00 AM [facility] CO2 21 20 - 31 mmol/L Final 12/16/2019 6:00 AM [facility] Anion Gap 13 9 - 17 mmol/L Final 12/16/2019 6:00 AM [facility] GFR Non- >60 >60 mL/min Final 12/16/2019 6:00 AM [facility] GFR >60 >60 mL/min Final 12/16/2019 6:00 AM [facility] GFR Comment Final 12/16/2019 6:00 AM [facility] Radiology: CT ABDOMEN PELVIS W IV CONTRAST Additional Contrast? Oral Status: Final result Order Providers Authorizing Billing MD Héctor Herrera MD Signed by Signed Date/Time Phone Pager HÉCTOR RAMOS 12/15/2019 18:54 Reading Providers Read Date Phone Pager HÉCTOR RAMOS December 15, 2019 All Reviewers List Rigoberto Orellana DO on 12/17/2019 08:40 Routing History Priority Sent On From To Message Type 12/15/2019 6:56 PM Abner, Mhpn Incoming Radiant Results From [employer] Rigoberto Orellana DO CC'd Results Radiation Dose Estimates No radiation information found for this patient Narrative EXAMINATION: CT OF THE ABDOMEN AND PELVIS WITH CONTRAST 12/15/2019 6:05 pm TECHNIQUE: CT of the abdomen and pelvis was performed with the administration of intravenous contrast. Multiplanar reformatted images are provided for review. Dose modulation, iterative reconstruction, and/or weight based adjustment of the mA/kV was utilized to reduce the radiation dose to as low as reasonably achievable. COMPARISON: 07/23/2019 HISTORY: ORDERING SYSTEM PROVIDED HISTORY: hx of daniela-en-y, seen with suspicion jejunostomy intussusception yesterday TECHNOLOGIST PROVIDED HISTORY: hx of daniela-en-y, seen with suspicion jejunostomy intussusception yesterday Reason for Exam: hx of daniela-en-y, seen with suspicion jejunostomy intussusception yesterday Acuity: Acute Type of Exam: Initial FINDINGS: Lower Chest: No acute findings. Organs: Status post cholecystectomy. No biliary dilatation. The liver, pancreas, spleen, adrenals and kidneys reveal no acute findings. GI/Bowel: Status post Daniela-en-Y gastric bypass. Oral contrast is present in the stomach and through the bypass segment into the small bowel. Long segment small bowel intussusception in the left abdomen is best demonstrated on coronal image 35 and sagittal image 89 measuring 7 cm in length. This is near a small bowel anastomosis and the upstream bowel is dilated containing contrast. The intussuscepting segment has fecalization, consistent with stasis. No inflammatory change. Pelvis: No acute findings. Corpus luteum cyst in the right ovary. The bladder is well distended. Peritoneum/Retroperitoneum: No free air. No ascites. No lymphadenopathy. The aorta is normal in caliber. Bones/Soft Tissues: No acute osseous abnormality identified. Impression Long segment small bowel jejunal intussusception near the anastomosis. Fecalization in this area is noted consistent with stasis and there is mild upstream small bowel distension. Assessment: History of Gastric bypass History of perforated gastric ulcer 2.5 months prior JJ Intussusception on CT with mesentery passing into bowel lumen Continuing pain Plan: OR NPO Covid testing was negative in last 48 hours IV fluids Consent obtained, option of not doing surgery given Options regarding treatment discussed. Resection vs no resection and recurrence potential. She is aware the bowel could require resection, however, would like to hold off if possible. She is aware ofthe risk of open procedure or need for bowel resection. Risks including but not limited to bleeding, infection, further surgery, damage to surrounding structures, , DVT/PE, need for transfusion, need for ventilator, anastomotic leak, prolonged hospital course all explained. She would like to move forward with surgery. * Leonie Toscano RN - 12/17/2019 8:30 AM EDT Report called to Carmen, all questions answered and call back number provided. * Janeth Urrutia MD - 12/16/2019 7:24 PM EDT Paged regarding patient's pain. Reported 03/03. Patient was seen and evaluated at bedside. Resting comfortably on eval, texting on phone. Vitals stable, HR in the 80s, on room air. Patient states lower abdominal pain. Physical exam remains benign - abdomen soft, nondistended, mildly tender to deep palpation in RLQ and suprapubic regions. Will continue to monitor closely. Thank you, Janeth Urrutia MD General Surgery PGY2 Pager Number: [phone] * Kiya Cordero RN - 12/16/2019 4:52 PM EDT Per yoselin Paredes to hep lock pt while she is on clear liquid diet * Vielka Larson IV, - 12/16/2019 7:19 AM EDT General Surgery: Daily Progress Note PATIENT NAME: Rachid Mojica TODAY'S DATE: 12/16/2019, 7:19 AM CC: hungry SUBJECTIVE: Pt seen and examined at bedside. No acute events overnight. No abdominal pain. No flatus/bm. Afebrile. OBJECTIVE: VITALS: BP (!) 82/43 Pulse 66 Temp 97.9 F (36.6 C) (Axillary) Resp 15 Ht 5' 5 (1.651 m) Wt 147 lb (66.7 kg) SpO2 99% BMI 24.46 kg/m INTAKE/OUTPUT: Intake/Output Summary (Last 24 hours) at 12/16/2019 0719 Last data filed at 12/16/2019 0601 Gross per 24 hour Intake 1006.25 ml Output Net 1006.25 ml PHYSICAL EXAM: General Appearance: awake, alert, oriented, in no acute distress HEENT: Normocephalic, atraumatic, mucus membranes moist Heart: s1+s2 Lungs: equal and symmetric chest rise/fall, non-labored Abdomen:soft, nd, nttp Extremities: No cyanosis, pitting edema, rashes noted. Skin: Skin color, texture, turgor normal. No rashes or lesions. Data: CBC with Differential: Lab Results Component Value Date WBC 5.8 12/16/2019 RBC 4.36 12/16/2019 HGB 13.5 12/16/2019 HCT 41.6 12/16/2019 PLT 154 12/16/2019 MCV 95.4 12/16/2019 MCH 31.0 12/16/2019 MCHC 32.5 12/16/2019 RDW 12.2 12/16/2019 LYMPHOPCT 41 12/16/2019 MONOPCT 9 12/16/2019 BASOPCT 1 12/16/2019 MONOSABS 0.51 12/16/2019 LYMPHSABS 2.38 12/16/2019 EOSABS 0.26 12/16/2019 BASOSABS 0.05 12/16/2019 DIFFTYPE NOT REPORTED 12/16/2019 BMP: Lab Results Component Value Date NA 137 12/16/2019 K 3.8 12/16/2019 CL 103 12/16/2019 CO2 21 12/16/2019 BUN 9 12/16/2019 LABALBU 4.0 12/15/2019 CREATININE 0.55 12/16/2019 CALCIUM 8.5 12/16/2019 GFRAA >60 12/16/2019 LABGLOM >60 12/16/2019 GLUCOSE 83 12/16/2019 Radiology Review: KUB reviewed, non-dilated sb, with contrast progression to colon. ASSESSMENT: Active Hospital Problems Diagnosis Date Noted Intussusception intestine (HCC) [K56.1] 12/15/2019 1. 29 y.o. female h/o RnY GB, perforated marginal ulcer?, presents with intusception of J-J anastomosis. Plan: 1. Diet: NPO 2. Will discuss timing of surgery. Currently patient is not peritoneal, abd is soft, nd, nttp. She is comfortable. Labs reviewed and no leukocytosis, bmp wnl. KUB this am with contrast in colon demonstrating non-obstruction. Given overall clinical picture patient not emergent. Could possible give clear liquid diet with operative planning for Tuesday for robotic possible open revision of J-J anastomosis. I have reviewed the resident's note and I either performed the mares elements of the medical history and physical exam or was present with the resident when the mares elements of the medical history and physical exam were performed. I have discussed the findings, established the care plan and recommendations with Resident. Patient abdomen is soft, nontendistended with mild generalized tenderness but peritoneal signs. Patient does not have an acute surgical abdomen. Will discuss case with bariatric surgeon to evaluate and determine any surgical interventions. documented in this encounter Assessments Diagnosis Intussusception (HCC) Intussusception S/P laparoscopic surgery Other postprocedural status Intussusception intestine (HCC) Intussusception Diagnosis Pre-op testing Preoperative examination, unspecified Advance Directives No Advanced Directives Records FoundDocuments on File Type Date Recorded Patient Mutual Fund Manager Expl anation Advance Directives and Living Will Power of Mgmt Consultant Latest Code Status on File Code Status Date Activated Date Inactivated Comments Full Code 12/15/2019 9:45 PM Latest Code Status on File Code Status Date Activated Date Inactivated Comments Full Code 12/15/2019 9:45 PM 12/18/2019 5:31 PM Documents on File Type Date Recorded Patient Mutual Fund Manager Expl anation Advance Directives and Living Will Power of Mgmt Consultant Latest Code Status on File Code Status Date Activated Date Inactivated Comments Full Code 12/15/2019 9:45 PM 12/18/2019 5:31 PM Latest Code Status on File Code Status Date Activated Date Inactivated Comments Full Code 12/08/2021 7:55 PM Latest Code Status on File Code Status Date Activated Date Inactivated Comments Full Code 12/08/2021 7:55 PM Summary Purpose Family History No Family History Records FoundNo Family History Records FoundNo Family History Records FoundNo Family History Records FoundNo Family History Records FoundNo Family History Records Found Chief Complaint and Reason for Visit Chief Complaint COVID TESTING Additional Source Comments Reason for Visit (unrecogniz ed section and content) Reason Comments Abdominal Pain Pt states she did a CT of her abdomin and came back abnormal, abdominal pain x2 weeks Status Reason Specialty Diagnoses / Procedures Referre d By Contact Referred To Contact Diagnoses 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) Jeannie Garcia DO [address] [facility] [address] [place] [address] [facility] Status Reason Specialty Diagnoses / Procedures Re ferred By Contact Referred To Contact Diagnoses Epigastric pain EPIGASTRIC PAIN Procedures [place] OFFICE/OUTPT VISIT,PROCEDURE ONLY [place] ESOPHAGOGASTRODUODENOSCOPY TRANSORAL DIAGNOSTIC EGD ESOPHAGOGASTRODUODENOSCOPY Jeannie Garcia DO [address] [facility] [address] [place] [address] [facility] Reason Comments Emesis pt states she has be en vomiting since a surgery for a ruptured lining during a scope Reason Comments Abdominal Pain Reason Comments Post-op Problem pt states she has an infection in her drain tubes Reason Comments New Patient Specialty Diagnoses / Procedures Referred By Clint mora Referred To Contact Neurology Diagnoses History of seizures Alissa Gibbs, EMAIL MANAGER-MAIL PROCESSING ASSOCIATE [address] [facility] [address] [place] [address] Referral ID Status Reason Start Date Expiration Date V isits Requested Visits Authorized [id number] New Request 12/29/2021 01/23/2023 1 1 INFORMATION SOURCE (unrecogn ized section and content) DATE CREATED AUTHOR 01/05/2020 [facility] DATE CREATED AUTHOR AUTHOR'S ORGANIZ ATION 01/07/2020 [facility] DATE CREATED AUTHOR AUTHOR'S ORGANIZ ATION 03/30/2021 [facility] DATE CREATED AUTHOR AUTHOR'S ORGANIZ ATION 01/03/2023 [facility] DATE CREATED AUTHOR AUTHOR'S ORGANIZ ATION 07/23/2023 [facility] DATE CREATED AUTHOR AUTHOR'S ORGANIZ ATION 08/06/2023 [facility] Care Teams (unrecognized sec tion and content) Explosive Operator Grenade Relationship Specialty Start Date End Date Lorin Traylor CNP [address] [facility] [address] [place] [address] PCP - General Nurse Practitioner - [facility] 12/29/21 Explosive Operator Grenade Relationship Specialty Start Date End Date Lorin Traylor CNP [address] [facility] [address] [place] [address] PCP - General Nurse Practitioner - [facility] 12/29/21 Explosive Operator Grenade Relationship Specialty Start Date End Date Shaggyayush LorinOSMANY [address] [facility] [address] [place] [address] PCP - General Nurse Practitioner - [facility] 12/29/21 FOR RECORDS PERTAINING TO PATIENTS WHO ARE OR HAVE BEEN ENROLLED IN A CHEMICAL DEPENDENCY/SUBSTANCEABUSE PROGRAM, SOME INFORMATION MAY BE OMITTED. This clinical summary was aggregated from multiple sources. Caution should be exercised in using it in the provision of clinical care. This summary normalizes information from multiple sources, and as a consequence, information in this document may materially change the coding, format and clinical context of patient data. In addition, data may be omitted in some cases. CLINICAL DECISIONS SHOULD BE BASED ON THE PRIMARY CLINICAL RECORDS. [facility] [employer] [facility]. provides no warranty or guarantee of the accuracy or completeness of information in this document.
== END 2023-08-30 16:10 | disposition home or self-care (01) ==
PROVIDERS: Emergency Provider Emergency Medicine
DX: S39.012A Strain of muscle, fascia and tendon of lower back, initial encounter (principal); Z90.710 Acquired absence of both cervix and uterus; Z79.899 Other long term (current) drug therapy; X58.XXXA Exposure to other specified factors, initial encounter
CPT/HCPCS: 96372; 99284; J2360; J2930

== ENCOUNTER 2024-02-28 18:20 | Emergency (ER) | payer OTHER, SELFPAY ==
[2024-02-28 18:23] VITALS: BP 122/76; PULSE 98; TEMP 37; O2SAT 98; BMI 28.3
--- OUTSIDE RECORDS SUMMARY | 2024-02-28 18:29 | XMS_ITS | CCD ---
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 4.2 g/dL Normal 3.2-4.9 [facility] Comment on above: Performed By: #### L IVER #### [address] [address] Alk Phos 48 IU/L Normal 32-91 [facility] Comment on above: Performed By: #### L IVER #### [address] [address] ALT [Catalytic activity/Vol] 25 U/L Normal 14-54 [facility] Comment on above: Performed By: #### L IVER #### [address] [address] AST [Catalytic activity/Vol] 26 U/L Normal 15-41 [facility] Comment on above: Performed By: #### L IVER #### [address] [address] Bili Direct 0.2 mg/dL Normal 0.1-0.5 [facility] Comment on above: Performed By: #### L IVER #### [address] [address] Bili Indirect 0.6 mg/dL Normal 0.0-1.0 [facility] Comment on above: Performed By: #### L IVER #### [address] [address] Bili Total 0.8 mg/dL Normal 0.3-1.2 [facility] Comment on above: Performed By: #### L IVER #### [address] [address] Protein [Mass/Vol] 7.3 g/dL Normal 6.5-8.1 [facility] Comment on above: Performed By: #### L IVER #### [address] [address] Lipaseon 03-29-2021 Lipase Lvl 29 IU/L Normal 22-51 [facility] Comment on above: Performed By: #### L IP #### [address] [address] UA w Culture if Indon 2020 Color (U) Yellow Normal [facility] Comment on above: Performed By: #### U CI #### [address] [address] Ketones Ql (U) Negative Normal Negative [facility] Comment on above: Performed By: #### U CI #### [address] [place] [address] UA Blood Negative Normal Negative [facility] Comment on above: Performed By: #### U CI #### [address] [address] UA Clarity Clear Normal [facility] Comment on above: Performed By: #### U CI #### [address] [place] [address] UA Glucose Normal Normal Negative [facility] Comment on above: Performed By: #### U CI #### [address] [place] [address] UA Leukocyte Esterase Negative Normal Negative [facility] Comment on above: Performed By: #### U CI #### [address] [address] UA Nitrite Negative Normal Negative [facility] Comment on above: Performed By: #### U CI #### [address] [address] UA pH 5.5 Normal 4.5 - 7.8 [facility] Comment on above: Performed By: #### U CI #### [address] [address] UA Protein 10 mg/dL Normal Negative [facility] Comment on above: Performed By: #### U CI #### [address] [address] UA Source Clean Catch Normal [facility] Comment on above: Performed By: #### U CI #### [address] [address] UA Spec Grav 1.027 Normal 1.003-1.035 [facility] Comment on above: Performed By: #### U CI #### [address] [address] UA Urobilinogen Normal Normal 0.2 - 1.0 [facility] Comment on above: Performed By: #### U CI #### [place] [id number] Urobilinogen (U) [Mass/Vol] Negative Normal Negative [facility] Comment on above: Performed By: #### U CI #### [address] [address] US Transvaginal w/ Duplexon 03-29-2021 US Transvaginal [...] Electronically Signed in Other Vendor System) Normal [facility] Surgical Pathologyon 020 Surgical Pathology (NOTE) -- [...] SURGICAL PATHOLOGY CONSULTATION Patient Name: RACHID MOJICA [facility] Rec: [id number] Path Number: [id number] [facility] ANATOMIC PATHOLOG[facility] [address] [place] [address]. [place], [place] [address] Normal [facility] Comment on above: Performed By: #### P PPVS #### [employer] [address] [place] [address] [employer]: John Yancey MD COVID-19 Ambulatoryon 2019 SARS-CoV-2, MILLICENT Not Detected Not Detected [facility], [place] Comment on above: (NOTE) This test was developed and its performance characteristics determined by [employer]. This test has not been FDA cleared [...] detected) result in this assay. Performed At: [facility] Located Within [facility] [address] [facility] [place] [id number] Melly Butler MD Ph:[phone] [id number] 01-02-2020 SARS-CoV-2 Not Detected Normal Not Detected [facility] in [facility] Comment on above: Result Comment: (NOT E) This test was developed and its performance characteristics determined by [employer]. This test has not been FDA cleared [...] detected) result in this assay. Performed At: [facility] [address] [facility] [place] [id number] Melly Butler MD Ph:[phone] Performed By: #### C DP, CP, LIP #### [facility] [address] [place] [address] [employer]: Kd Page MD Basic Metab w/rfx MGon 12-15 (cont.) Normal [facility] Comment on above: Result Comment: Aver age GFR for 30-39 years old: 107 mL/min/1.73sq m Chronic Kidney Disease: <60 mL/min/1.73sq m Kidney failure: <15 mL/min/1.73sq m eGFR calculated using average adult body mass. Additional eGFR calculator available at: http://www.S[employer]/multiple_crcl_2012.htm Performed By: #### C DP, BMPX #### [address] [address] [employer]: John Yancey MD Anion gap [Moles/Vol] 13 mmol/L Normal 9-17 [facility] Comment on above: Performed By: #### C DP, BMPX #### [address] [address] [employer]: John Yancey MD Calcium [Mass/Vol] 8.5 mg/dL Low 8.6-10.4 [facility] Comment on above: Performed By: #### C DP, BMPX #### [address] [address] [employer]: John Yancey MD Chloride [Moles/Vol] 103 mmol/L Normal 98-107 [facility] Comment on above: Performed By: #### C DP, BMPX #### [address] [address] [employer]: John Yancey MD CO2 [Moles/Vol] 21 mmol/L Normal 20-31 [facility] Comment on above: Performed By: #### C DP, BMPX #### [facility] [address] [place] [address] [employer]: John Yancey MD Creatinine [Mass/Vol] 0.55 mg/dL Normal 0.50-0.90 [facility] Comment on above: Performed By: #### C DP, BMPX #### [facility] [address] [place] [address] [employer]: John Yancey MD GFR, Amer >60 Normal >60 [facility] Comment on above: Performed By: #### C DP, BMPX #### [facility] [address] [place] [address] [employer]: John Yancey MD GFR,non Amer >60 Normal >60 [facility] Comment on above: Performed By: #### C DP, BMPX #### [address] [address] [employer]: John Yancey MD Glucose [Mass/Vol] 83 mg/dL Normal 70-99 [facility] Comment on above: Performed By: #### C DP, BMPX #### [address] [address] [employer]: John Yancey MD Potassium [Moles/Vol] 3.8 mmol/L Normal 3.7-5.3 [facility] Comment on above: Performed By: #### C DP, BMPX #### [facility] [address] [place] [address] [employer]: John Yancey MD Sodium [Moles/Vol] 137 mmol/L Normal 135-144 [facility] Comment on above: Performed By: #### C DP, BMPX #### [facility] [address] [place] [address] [employer]: John Yancey MD Urea nitrogen [Mass/Vol] 9 mg/dL Normal 6-20 [facility] Comment on above: Performed By: #### C DP, BMPX #### [facility] [address] [place], [place] [id number] [employer]: John Yancey MD Staging: NOT REPORTED Normal [facility] Comment on above: Performed By: #### C DP, BMPX #### [facility] [address] [place], [place] [phone] [employer] Imp[employer]: John Yancey MD Bun/Cre Ratio NOT REPORTED Normal -20 [place], [place] Comment on above: Performed By: #### C DP, BMPX #### [facility] [address] [place], [place] [id number] [employer]: John Yancey MD Basic Metabolic Panel w/ Ref devendra to on 12-16-2019 Anion gap [Moles/Vol] 13 mmol/L 9 - 17 mmol/L [place] Calcium [Mass/Vol] 8.5 mg/dL Low 8.6 - 10. 4 mg/dL [place] Chloride [Moles/Vol] 103 mmol/L 98 - 10 7 mmol/L [place] CO2 [Moles/Vol] 21 mmol/L 20 - 31 mmol/L [place] Creatinine [Mass/Vol] 0.55 mg/dL 0.5 - 0.9 mg/dL [place] GFR >60 >60 mL/min [place], [place] GFR Non- >60 >60 mL/min [place] GFR/1.73 sq M predicted among non-blacks MDRD (S/P/Bld) [Vol rate/Area] [place] Comment on above: Average GFR for 30-3 9 years old: 107 mL/min/1.73sq m Chronic Kidney Disease: <60 mL/min/1.73sq m Kidney failure: <15 mL/min/1.73sq m eGFR calculated using average adult body mass. Additional eGFR calculator available at: http://www.Contextors.SomnoMed/multiple_crcl_2012.htm GFR/1.73 sq M predicted among non-blacks MDRD (S/P/Bld) [Vol rate/Area] NOT REPORTED [place] Glucose [Mass/Vol] 83 mg/dL 70 - 99 mg/dL [place], [place] Interpretation and review of laboratory results Abnormal [place] Potassium [Moles/Vol] 3.8 mmol/L 3.7 - 5.3 mmol/L [place] Sodium [Moles/Vol] 137 mmol/L 135 - 144 mmol/L [place] Urea nitrogen [Mass/Vol] 9 mg/dL 6 - 20 mg/dL [place] CBC auto differentialon 11-23 Basophils (Bld) [#/Vol] 0.05 10*3/uL [place] Basophils/100 WBC (Bld) 1 % 0 - 2 % M [place] Differential Type NOT REPORTED [place] Eosinophils (Bld) [#/Vol] 0.26 10*3/uL [place] Eosinophils/100 WBC (Bld) 5 % High 1 - 4 % [place] Erythrocyte distribution width (RBC) [Ratio] 12.2 % 11.8 - 14.4 % [place] Hematocrit (Bld) [Volume fraction] 41.6 % 36.3 - 47.1 % [place] Hemoglobin (Bld) [Mass/Vol] 13.5 g/dL 11.9 - 15.1 g/dL [place] Immature granulocytes (Bld) [#/Vol] 0 % 0 [place] Immature granulocytes (Bld) [#/Vol] 10*3/uL [place] Interpretation and review of laboratory results Abnormal [place] Lymphocytes (Bld) [#/Vol] 2.38 10*3/uL [place] Lymphocytes/100 WBC (Bld) 41 % 24 - 43 % [place] MCH (RBC) [Entitic mass] 31.0 pg 25.2 - 33.5 pg [place] MCHC (RBC) [Mass/Vol] 32.5 g/dL 28.4 - 34.8 g/dL [place] MCV (RBC) [Entitic vol] 95.4 fL 82.6 - 102.9 fL [place] Monocytes (Bld) [#/Vol] 0.51 10*3/uL [place] Monocytes/100 WBC (Bld) 9 % 3 - 12 % [place] Platelet mean volume (Bld) [Entitic vol] 10.6 fL 8.1 - 13.5 fL [place] Platelets (Bld) [#/Vol] 154 10*3/uL [place] RBC (Bld) [#/Vol] 4.36 10*6/uL 3.95 - 5.1 1 m/uL [place] Segmented neutrophils/100 WBC (Bld) 44 % 36 - 65 % [place] Segs Absolute 2.54 [place] WBC (Bld) [#/Vol] 0.0 10*3/uL 0.0 per 10 0 WBC [place] WBC (Bld) [#/Vol] 5.8 10*3/uL [place] CBC with Diffon 12-16-2019 Abs. Basophil 0.05 k/uL Normal 0.00-0.20 [facility] Comment on above: Performed By: #### C DP, BMPX #### [facility] [address] [place] [address] [employer]: John Yancey MD Abs.Imm.Granulocyte <0.03 Normal 0.00-0.30 [facility] Comment on above: Performed By: #### C DP, BMPX #### [facility] [place], [place] [phone] [employer]: John Yancey MD Abs.Neutrophil (Seg) 2.54 k/uL Normal 1.50-8.10 [facility] Comment on above: Performed By: #### C DP, BMPX #### [address] [address] [employer]: John Yancey MD Basophils/100 WBC (Bld) 1 % Normal 0-2 M [facility] Comment on above: Performed By: #### C DP, BMPX #### [address] [address] [employer]: John Yancey MD Eosinophils (Bld) [#/Vol] 0.26 10*3/uL Normal 0.00-0.44 [facility] Comment on above: Performed By: #### C DP, BMPX #### [address] [address] [employer]: John Yancey MD Eosinophils/100 WBC (Bld) 5 % High 1-4 [facility] Comment on above: Performed By: #### C DP, BMPX #### [address] [address] [employer]: John Yancey MD Erythrocyte distribution width (RBC) [Ratio] 12.2 % Normal 11.8-14.4 [facility] Comment on above: Performed By: #### C DP, BMPX #### [address] [address] [employer]: John Yancey MD Hematocrit (Bld) [Volume fraction] 41.6 % Normal 36.3-47.1 [facility] Comment on above: Performed By: #### C DP, BMPX #### [place] [address] [employer]: John Yancey MD Hemoglobin (Bld) [Mass/Vol] 13.5 g/dL Normal 11.9-15.1 [facility] Comment on above: Performed By: #### C DP, BMPX #### [address] [address] [employer]: John Yancey MD Immature granulocytes (Bld) [#/Vol] 0 % Normal 0 [facility] Comment on above: Performed By: #### C DP, BMPX #### [address] [address] [employer]: John Yancey MD Lymphocytes (Bld) [#/Vol] 2.38 10*3/uL Normal 1.10-3.70 [facility] Comment on above: Performed By: #### C DP, BMPX #### [address] [address] [employer]: John Yancey MD Lymphocytes/100 WBC (Bld) 41 % Normal 24-43 [facility] Comment on above: Performed By: #### C DP, BMPX #### [address] [address] [employer]: John Yancey MD MCH (RBC) [Entitic mass] 31.0 pg Normal 25.2-33.5 [facility] Comment on above: Performed By: #### C DP, BMPX #### [address] [address] [employer]: John Yancey MD MCHC (RBC) [Mass/Vol] 32.5 g/dL Normal 28.4-34.8 [facility] Comment on above: Performed By: #### C DP, BMPX #### [address] [address] [employer]: John Yancey MD MCV (RBC) [Entitic vol] 95.4 fL Normal 82.6-102.9 M [facility] Comment on above: Performed By: #### C DP, BMPX #### [address] [address] [employer]: John Yancey MD Monocytes (Bld) [#/Vol] 0.51 10*3/uL Normal 0.10-1.20 [facility] Comment on above: Performed By: #### C DP, BMPX #### [address] [address] [employer]: John Yancey MD Monocytes/100 WBC (Bld) 9 % Normal 3-12 M [facility] Comment on above: Performed By: #### C DP, BMPX #### [address] [address] [employer]: John Yancey MD Neutrophil (Seg) 44 % Normal 36-65 [facility] Comment on above: Performed By: #### C DP, BMPX #### [address] [address] [employer]: John Yancey MD NRBC Automated 0.0 per 100 WBC Normal 0.0 [facility] Comment on above: Performed By: #### C DP, BMPX #### [address] [address] [employer]: John Yancey MD Platelet mean volume (Bld) [Entitic vol] 10.6 fL Normal 8.1-13.5 [facility] Comment on above: Performed By: #### C DP, BMPX #### [place] [address] [employer]: John Yancey MD Platelets (Bld) [#/Vol] 154 10*3/uL Normal 138-453 [facility] Comment on above: Performed By: #### C DP, BMPX #### [address] [address] [employer]: John Yancey MD RBC (Bld) [#/Vol] 4.36 10*6/uL Normal 3.95-5.11 [facility] Comment on above: Performed By: #### C DP, BMPX #### [facility] [address] [place] [address] [employer]: John Yancey MD WBC (Bld) [#/Vol] 5.8 10*3/uL Normal 3.5-11.3 [facility] Comment on above: Performed By: #### C DP, BMPX #### [facility] [address] [place] [address] [employer]: John Yancey MD Auto Diff Performed NOT REPORTED Normal [facility] Comment on above: Performed By: #### C DP, BMPX #### [address] [address] [employer]: John Yancey MD Platelets (Bld) [#/Vol] NOT REPORTED Normal [place] Comment on above: Performed By: #### C DP, BMPX #### [address] [address] [employer]: John Yancey MD RBC morphology finding Nom (Bld) NOT REPORTED Normal [place] Comment on above: Performed By: #### C DP, BMPX #### [address] [address] [employer]: John Yancey MD WBC Morphology NOT REPORTED Normal [place], [place] Comment on above: Performed By: #### C DP, BMPX #### [address] [address] [employer]: John Yancey MD COVID-19on 12-16-2019 SARS-CoV-2 Not Detected Not Detected [place], [place] Comment on above: The specimen is NEGATIVE for SARS-CoV-2, the novel coronavirus associated with COVID-19. A negative result does not rule out COVID-19. This test has been authorized by the FDA under an Emergency Use Authorization (EUA) for use by authorized laboratories. Fact sheet for Healthcare Providers: https://www.fda.gov/media/850573/download Fact sheet for Patients: https://www.fda.gov/media/839435/download METHODOLOGY: RT-PCR SARS-CoV-2, PCR [facility], [place] SARS-CoV-2, Rapid [facility] [place] Source .NASOPHARYNGEAL SWAB [facility], [place] [id number] 12-16-2019 SARS-CoV-2 Normal [facility] Comment on above: Performed By: #### C OVID #### [address] [address] Teacher [employer] Imp[employer]: John Yancey MD SARS-CoV-2,Rapid [facility] Comment on above: Performed By: #### C OVID #### [facility] [address] [place] [address] Teacher Of [employer] S[employer] Impaired: John Yancey MD SARS-CoV-2 Not Detected Normal NOTDET [facility] Comment on above: Result Comment: The specimen is NEGATIVE for SARS-CoV-2, the novel coronavirus associated with COVID-19. A negative result does not rule out COVID-19. This test has been authorized by the FDA under an Emergency Use Authorization (EUA) for use by authorized laboratories. Fact sheet for Healthcare Providers: https://www.fda.gov/media/067218/download Fact sheet for Patients: https://www.fda.gov/media/362237/download METHODOLOGY: RT-PCR Performed By: #### C OVID #### [address] [address] Teacher [employer]: John Yancey MD XR ABDOMEN (KUB) (SINGLE [...] Vail Jr., DO 12/16/19 Final result Normal [facility] EXAMINATION: ONE SUPINE XRAY VIEW(S) OF THE [...] region. Osseous structures demonstrate no acute findings. [place], [place] No acute intra-abdominal process. Oral contrast is seen throughout the colon. [place], [facility] Incoming Radiant Results From [employer] - 12/16/2019 7:26 AM EDT EXAMINATION: ONE [...] Oral contrast is seen throughout the colon. [place] CBC WITH AUTO DIFFERENTIALon 12-15-2019 Basophils (Bld) [#/Vol] 0.06 10*3/uL [place] Basophils/100 WBC (Bld) 1 % 0 - 2 % M [place] Differential Type NOT REPORTED [place] Eosinophils (Bld) [#/Vol] 0.24 10*3/uL [place] Eosinophils/100 WBC (Bld) 4 % 1 - 4 % [place] Erythrocyte distribution width (RBC) [Ratio] 12.5 % 11.8 - 14.4 % [place] Hematocrit (Bld) [Volume fraction] 45.7 % 36.3 - 47.1 % [place] Hemoglobin (Bld) [Mass/Vol] 14.5 g/dL 11.9 - 15.1 g/dL [place] Immature granulocytes (Bld) [#/Vol] 0 % 0 [place] Immature granulocytes (Bld) [#/Vol] 10*3/uL [place] Lymphocytes (Bld) [#/Vol] 2.47 10*3/uL [place] Lymphocytes/100 WBC (Bld) 37 % 24 - 43 % [place] MCH (RBC) [Entitic mass] 30.4 pg 25.2 - 33.5 pg [place] MCHC (RBC) [Mass/Vol] 31.7 g/dL 28.4 - 34.8 g/dL [place] MCV (RBC) [Entitic vol] 95.8 fL 82.6 - 102.9 fL [place] Monocytes (Bld) [#/Vol] 0.52 10*3/uL [place] Monocytes/100 WBC (Bld) 8 % 3 - 12 % [place] Platelet mean volume (Bld) [Entitic vol] 10.8 fL 8.1 - 13.5 fL [place] Platelets (Bld) [#/Vol] NOT REPORTED [place] Platelets (Bld) [#/Vol] 176 10*3/uL [place] RBC (Bld) [#/Vol] 4.77 10*6/uL 3.95 - 5.1 1 m/uL [place] RBC morphology finding Nom (Bld) NOT REPORTED [place] Segmented neutrophils/100 WBC (Bld) 50 % 36 - 65 % [place] Segs Absolute 3.38 [place] WBC (Bld) [#/Vol] 0.0 10*3/uL 0.0 per 10 0 WBC [place] WBC (Bld) [#/Vol] 6.7 10*3/uL [place] WBC Morphology NOT REPORTED [place] CBC with Diffon 12-15-2019 Abs. Basophil 0.06 k/uL Normal 0.00-0.20 [facility] Comment on above: Performed By: #### C DP, CP, LIP #### [place] [address] [employer]: John Yancey MD Abs.Imm.Granulocyte <0.03 Normal 0.00-0.30 [facility] Comment on above: Performed By: #### C DP, CP, LIP #### [address] [address] [employer] Of [employer]: John Yancey MD Abs.Neutrophil (Seg) 3.38 k/uL Normal 1.50-8.10 [facility] Comment on above: Performed By: #### C DP, CP, LIP #### [facility] [address] [place] [address] Teacher [employer] Imp[employer]: John Yancey MD Basophils/100 WBC (Bld) 1 % Normal 0-2 M [facility] Comment on above: Performed By: #### C DP, CP, LIP #### [facility] [address] [place] [address] [employer]: John Yancey MD Eosinophils (Bld) [#/Vol] 0.24 10*3/uL Normal 0.00-0.44 [facility] Comment on above: Performed By: #### C DP, CP, LIP #### [place] [address] [employer]: John Yancey MD Eosinophils/100 WBC (Bld) 4 % Normal 1-4 [facility] Comment on above: Performed By: #### C DP, CP, LIP #### [place] [address] [employer]: John Yancey MD Erythrocyte distribution width (RBC) [Ratio] 12.5 % Normal 11.8-14.4 [facility] Comment on above: Performed By: #### C DP, CP, LIP #### [place] [address] [employer]: John Yancey MD Hematocrit (Bld) [Volume fraction] 45.7 % Normal 36.3-47.1 [facility] Comment on above: Performed By: #### C DP, CP, LIP #### [place] [address] [employer]: John Yancey MD Hemoglobin (Bld) [Mass/Vol] 14.5 g/dL Normal 11.9-15.1 [facility] Comment on above: Performed By: #### C DP, CP, LIP #### [place] [address] [employer]: John Yancey MD Immature granulocytes (Bld) [#/Vol] 0 % Normal 0 [facility] Comment on above: Performed By: #### C DP, CP, LIP #### [place] [address] [employer]: John Yancey MD Lymphocytes (Bld) [#/Vol] 2.47 10*3/uL Normal 1.10-3.70 [facility] Comment on above: Performed By: #### C DP, CP, LIP #### [place] [address] [employer]: John Yancey MD Lymphocytes/100 WBC (Bld) 37 % Normal 24-43 [facility] Comment on above: Performed By: #### C DP, CP, LIP #### [place] [address] [employer]: John Yancey MD MCH (RBC) [Entitic mass] 30.4 pg Normal 25.2-33.5 [facility] Comment on above: Performed By: #### C DP, CP, LIP #### [place] [address] [employer]: John Yancey MD MCHC (RBC) [Mass/Vol] 31.7 g/dL Normal 28.4-34.8 [facility] Comment on above: Performed By: #### C DP, CP, LIP #### [place] [address] [employer]: John Yancey MD MCV (RBC) [Entitic vol] 95.8 fL Normal 82.6-102.9 [facility] Comment on above: Performed By: #### C DP, CP, LIP #### [place] [address] [employer]: John Yancey MD Monocytes (Bld) [#/Vol] 0.52 10*3/uL Normal 0.10-1.20 [facility] Comment on above: Performed By: #### C DP, CP, LIP #### [place] [address] [employer]: John Yancey MD Monocytes/100 WBC (Bld) 8 % Normal 3-12 M [facility] Comment on above: Performed By: #### C DP, CP, LIP #### [address] [address] [employer]: John Yancey MD Neutrophil (Seg) 50 % Normal 36-65 [facility] Comment on above: Performed By: #### C DP, CP, LIP #### [address] [address] [employer]: John Yancey MD NRBC Automated 0.0 per 100 WBC Normal 0.0 [facility] Comment on above: Performed By: #### C DP, CP, LIP #### [address] [address] [employer]: John Yancey MD Platelet mean volume (Bld) [Entitic vol] 10.8 fL Normal 8.1-13.5 [facility] Comment on above: Performed By: #### C DP, CP, LIP #### [address] [address] [employer]: John Yancey MD Platelets (Bld) [#/Vol] 176 10*3/uL Normal 138-453 [facility] Comment on above: Performed By: #### C DP, CP, LIP #### [address] [address] [employer]: John Yancey MD RBC (Bld) [#/Vol] 4.77 10*6/uL Normal 3.95-5.11 [facility] Comment on above: Performed By: #### C DP, CP, LIP #### [address] [address] [employer]: John Yancey MD WBC (Bld) [#/Vol] 6.7 10*3/uL Normal 3.5-11.3 [facility] Comment on above: Performed By: #### C DP, CP, LIP #### [place] [address] [place] [address] [employer]: John Yancey MD Auto Diff Performed NOT REPORTED Normal [facility] Comment on above: Performed By: #### C DP, CP, LIP #### [facility] [address] [place] [address] [employer]: John Yancey MD Platelets (Bld) [#/Vol] NOT REPORTED Normal [facility] Comment on above: Performed By: #### C DP, CP, LIP #### [facility] [address] [place] [address] [employer]: John Yancey MD RBC morphology finding Nom (Bld) NOT REPORTED Normal [facility] Comment on above: Performed By: #### C DP, CP, LIP #### [facility] [address] [place] [address] [employer]: John Yancey MD WBC Morphology NOT REPORTED Normal [facility] Comment on above: Performed By: #### C DP, CP, LIP #### [facility] [address] [place] [address] [employer]: John Yancey MD CT ABDOMEN PELVIS W IV CONTR [place] 12-15-2019 CT ABDOMEN PELVIS W IV CONTRAST EXAMINATION: [...] Héctor Ramos MD 12/15/19 Final result Normal [facility] CT ABDOMEN PELVIS W IV CONTR AST [...] Bones/Soft Tissues: No acute osseous abnormality identified[place] Long segment small bowel jejunal intussusception near the anastomosis. Fecalization in this area is noted consistent with stasis and there is mild upstream small bowel distension. [place], [place], [facility] Incoming Radiant Results From [employer] - 12/15/2019 6:56 PM EDT EXAMINATION: CT [...] there is mild upstream small bowel distension. [facility], [place] Comp Metabolic Profon 2019 (cont.) Normal [facility] Comment on above: Result Comment: Aver age GFR for 30-39 years old: 107 mL/min/1.73sq m Chronic Kidney Disease: <60 mL/min/1.73sq m Kidney failure: <15 mL/min/1.73sq m eGFR calculated using average adult body mass. Additional eGFR calculator available at: http://www.Sightlogix/multiple_crcl_2011.htm Performed By: #### C TAMEKA CP, LIP #### [facility] [address] [place] [address] [employer]: John Yancey MD Albumin [Mass/Vol] 4.0 g/dL Normal 3.5-5.2 [facility] Comment on above: Performed By: #### C TAMEKA CP, LIP #### [facility] [address] [place] [address] [employer]: John Yancey MD Albumin/Globulin [Mass ratio] 1.6 {ratio} Normal 1.0-2.5 [facility] Comment on above: Performed By: #### C DP CP, LIP #### [facility] [address] [place] [address] [employer]: John Yancey MD Alkaline Phos 66 U/L Normal 35-104 [facility] Comment on above: Performed By: #### C DP CP, LIP #### [facility] [address] [place] [address] [employer]: John Yancey MD ALT [Catalytic activity/Vol] 23 U/L Normal 5-33 [facility] Comment on above: Performed By: #### C DP, CP, LIP #### [address] [address] [employer]: John Yancey MD Anion gap [Moles/Vol] 8 mmol/L Low 9-17 [facility] Comment on above: Performed By: #### C DP, CP, LIP #### [address] [address] [employer]: John Yancey MD AST [Catalytic activity/Vol] 23 U/L Normal <32 [facility] Comment on above: Performed By: #### C DP, CP, LIP #### [address] [address] [employer]: John Yancey MD Bilirubin Ql (U) 0.19 mg/dL Low 0.3-1.2 [facility] Comment on above: Performed By: #### C DP, CP, LIP #### [address] [address] [employer]: John Yancey MD Calcium [Mass/Vol] 9.1 mg/dL Normal 8.6-10.4 [facility] Comment on above: Performed By: #### C DP, CP, LIP #### [address] [address] [employer]: John Yancey MD Chloride [Moles/Vol] 107 mmol/L Normal 98-107 [facility] Comment on above: Performed By: #### C DP, CP, LIP #### [facility] [address] [place] [address] [employer]: John Yancey MD CO2 [Moles/Vol] 25 mmol/L Normal 20-31 [facility] Comment on above: Performed By: #### C DP, CP, LIP #### [address] [address] [employer]: John Yancey MD Creatinine [Mass/Vol] 0.59 mg/dL Normal 0.50-0.90 [facility] Comment on above: Performed By: #### C DP, CP, LIP #### [address] [address] [employer]: John Yancey MD GFR, Amer >60 Normal >60 [facility] Comment on above: Performed By: #### C DP, CP, LIP #### [address] [address] [employer]: John Yancey MD GFR,non Amer >60 Normal >60 [facility] Comment on above: Performed By: #### C DP, CP, LIP #### [address] [address] [employer]: John Yancey MD Glucose [Mass/Vol] 81 mg/dL Normal 70-99 [facility] Comment on above: Performed By: #### C DP, CP, LIP #### [address] [address] [employer]: John Yancey MD Potassium [Moles/Vol] 4.6 mmol/L Normal 3.7-5.3 [facility] Comment on above: Performed By: #### C DP, CP, LIP #### [address] [address] [employer]: John Yancey MD Protein [Mass/Vol] 6.5 g/dL Normal 6.4-8.3 [facility] Comment on above: Performed By: #### C DP, CP, LIP #### [address] [address] [employer]: John Yancey MD Sodium [Moles/Vol] 140 mmol/L Normal 135-144 [facility] Comment on above: Performed By: #### C DP, CP, LIP #### [facility] [address] [place] [address] [employer]: John Yancey MD Urea nitrogen [Mass/Vol] 9 mg/dL Normal 6-20 [facility] Comment on above: Performed By: #### C DP, CP, LIP #### [facility] [address] [place] [address] Teacher [employer]: John Yancey MD BUN/CRE Ratio NOT REPORTED Normal -20 [facility] Comment on above: Performed By: #### C DP, CP, LIP #### [facility] [address] [place] [address] [employer]: John Yancey MD Staging: NOT REPORTED Normal [facility] Comment on above: Performed By: #### C DP, CP, LIP #### [facility] [address] [place] [address] [employer]: John Yancey MD Comprehensive Metabolic Pane [facility] 12-15-2019 Albumin [Mass/Vol] 4 g/dL 3.5 - 5.2 g/dL [place], [place] Albumin/Globulin [Mass ratio] 1.6 {ratio} [place] ALP [Catalytic activity/Vol] 66 U/L 35 - 104 U/L [place] ALT [Catalytic activity/Vol] 23 U/L 5 - 33 U/L [place] Anion gap [Moles/Vol] 8 mmol/L Low 9 - 17 mmol/L [place] AST [Catalytic activity/Vol] 23 U/L <32 [place] Bilirubin Ql (U) 0.19 mg/dL Low 0.3 - 1.2 mg/dL [place] Bun/Cre Ratio NOT REPORTED [facility] [place], [place] Calcium [Mass/Vol] 9.1 mg/dL 8.6 - 10. 4 mg/dL [place] Chloride [Moles/Vol] 107 mmol/L 98 - 10 7 mmol/L [place] CO2 [Moles/Vol] 25 mmol/L 20 - 31 mmol/L [place] Creatinine [Mass/Vol] 0.59 mg/dL 0.5 - 0.9 mg/dL [place] GFR >60 >60 mL/min [place], [place] GFR Non- >60 >60 mL/min [place] GFR/1.73 sq M predicted among non-blacks MDRD (S/P/Bld) [Vol rate/Area] [place], [place] Comment on above: Average GFR for 30-3 9 years old: 107 mL/min/1.73sq m Chronic Kidney Disease: <60 mL/min/1.73sq m Kidney failure: <15 mL/min/1.73sq m eGFR calculated using average adult body mass. Additional eGFR calculator available at: http://www.Sightlogix/multiple_crcl_2012.htm GFR/1.73 sq M predicted among non-blacks MDRD (S/P/Bld) [Vol rate/Area] NOT REPORTED [place], [place] Glucose [Mass/Vol] 81 mg/dL 70 - 99 mg/dL [place], [place] Interpretation and review of laboratory results Abnormal [place], [place] Potassium [Moles/Vol] 4.6 mmol/L 3.7 - 5.3 mmol/L [place] Protein [Mass/Vol] 6.5 g/dL 6.4 - 8.3 g/dL [place] Sodium [Moles/Vol] 140 mmol/L 135 - 144 mmol/L [place] Urea nitrogen [Mass/Vol] 9 mg/dL 6 - 20 mg/dL [place] LIPASEon 12-15-2019 Lipase [Catalytic activity/Vol] 20 U/L 13 - 60 U/L [place] Lipaseon 12-15-2019 Lipase [Catalytic activity/Vol] 20 U/L Normal 13-60 [facility] Comment on above: Performed By: #### C JP ENGLISH, LIP #### [facility] [address] [place], [place] [id number] [employer]: John Yancey MD [id number] 12-15-2019 SARS-CoV-2 Source .NASOPHARYNGEAL SWAB Normal [facility] Comment on above: Performed By: #### C OVID #### [facility] [address] [place], [place] [id number] [employer]: John Yancey MD Topamaxon 07-31-2019 TOPA 2.7 ug/mL Low 5.0-20.0 [facility] Comment on above: Result Comment: (NOT E) INTERPRETIVE INFORMATION: Topiramate Therapeutic range: 5.0-20.0 ug/mL Toxic: Not well established Pharmacokinetics varies widely, particularly with co-medications, age, and/or compromised renal function. Adverse effects may include somnolence, fatigue, and dizziness. Performed by [facility], [address] [place] [id number] [email or web address], Nando Parrish MD, Lab. Director Performed By: #### C JP ENGLISH, LIP #### [facility] [address] [place] [address] [employer]: Kd Page MD CBC Auto DifferentialOrdered By: Tobias Hogan on 07-29-2019 Absolute Eos # 0.21 [facility] Work Phone: Absolute Immature Granulocyte <0.03 [facility] Work Phone: Absolute Lymph # 2.30 [facility] Work Phone: Absolute Brewster # 0.62 [facility] Work Phone: Basophils (Bld) [#/Vol] 0.06 10*3/uL [facility] Work Phone: Basophils/100 WBC (Bld) 1 % 0 - 2 % M [employer] Phone: Differential Type NOT REPORTED [employer] Phone: Eosinophils/100 WBC (Bld) 3 % 1 - 4 % [employer] Phone: Erythrocyte distribution width (RBC) [Ratio] 12.8 % 11.8 - 14.4 % [employer] Phone: Hematocrit (Bld) [Volume fraction] 38.4 % 36.3 - 47.1 % [employer] Phone: Hemoglobin (Bld) [Mass/Vol] 12.3 g/dL 11.9 - 15.1 g/dL [employer] Phone: Immature granulocytes/100 WBC (Bld) 0 % 0 [employer] Phone: Lymphocytes/100 WBC (Bld) 29 % 24 - 43 % [employer] Phone: MCH (RBC) [Entitic mass] 30.4 pg 25.2 - 33.5 pg [employer] Phone: MCHC (RBC) [Mass/Vol] 32.0 g/dL 28.4 - 34.8 g/dL [employer] Phone: MCV (RBC) [Entitic vol] 94.8 fL 82.6 - 102.9 fL [employer] Phone: Monocytes/100 WBC (Bld) 8 % 3 - 12 % M [employer] Phone: NRBC Automated 0.0 0.0 per 100 WBC [employer] Phone: Platelet Estimate NOT REPORTED [employer] Phone: Platelet mean volume (Bld) [Entitic vol] 11.0 fL 8.1 - 13.5 fL [employer] Phone: Platelets (Bld) [#/Vol] 220 10*3/uL [employer] Phone: RBC (Bld) [#/Vol] 4.05 10*6/uL 3.95 - 5.1 1 m/uL [facility] Work Phone: RBC morphology finding Nom (Bld) NOT REPORTED [facility] Work Phone: Segmented neutrophils/100 WBC (Bld) 59 % 36 - 65 % [facility] Work Phone: Segs Absolute 4.79 [facility] Work Phone: WBC (Bld) [#/Vol] 8.0 10*3/uL [facility] Work Phone: WBC Morphology NOT REPORTED [facility] Work Phone: CBC with Diffon 07-29-2019 Abs. Basophil 0.06 k/uL Normal 0.00-0.20 [facility] Comment on above: Performed By: #### C DP, HCG, CMPX #### [address] [place] [address] [employer]: Kd Page MD Abs.Imm.Granulocyte <0.03 Normal 0.00-0.30 [facility] Comment on above: Performed By: #### C DP, HCG, CMPX #### [address] [place] [address] [employer]: Kd Page MD Abs.Neutrophil (Seg) 4.79 k/uL Normal 1.50-8.10 [facility] Comment on above: Performed By: #### C DP, HCG, CMPX #### [address] [place] [address] [employer]: Kd Page MD Basophils/100 WBC (Bld) 1 % Normal 0-2 M [facility] Comment on above: Performed By: #### C DP, HCG, CMPX #### [address] [place], [place] [phone] [employer]: Kd Page MD Eosinophils (Bld) [#/Vol] 0.21 10*3/uL Normal 0.00-0.44 [facility] Comment on above: Performed By: #### C DP, HCG, CMPX #### [facility] [address] [place], [facility] [employer]: Kd Page MD Eosinophils/100 WBC (Bld) 3 % Normal 1-4 [facility] Comment on above: Performed By: #### C DP, HCG, CMPX #### [facility] [address] [place], [place] [address] [employer]: Kd Page MD Erythrocyte distribution width (RBC) [Ratio] 12.8 % Normal 11.8-14.4 [facility] Comment on above: Performed By: #### C DP, HCG, CMPX #### [address] [place], [place] [address] [employer]: Kd Page MD Hematocrit (Bld) [Volume fraction] 38.4 % Normal 36.3-47.1 [facility] Comment on above: Performed By: #### C DP, HCG, CMPX #### [address] [place], [facility] [employer]: Kd Page MD Hemoglobin (Bld) [Mass/Vol] 12.3 g/dL Normal 11.9-15.1 [facility] Comment on above: Performed By: #### C DP, HCG, CMPX #### [facility] [address] [place], [facility]83 [employer]: Kd Page MD Immature granulocytes (Bld) [#/Vol] 0 % Normal 0 [facility] Comment on above: Performed By: #### C DP, HCG, CMPX #### [facility] [address] [place], [facility]83 [employer]: Kd Page MD Lymphocytes (Bld) [#/Vol] 2.30 10*3/uL Normal 1.10-3.70 [facility] Comment on above: Performed By: #### C DP, HCG, CMPX #### [facility] [address] [place] [id number] [employer]: Kd Page MD Lymphocytes/100 WBC (Bld) 29 % Normal 24-43 [facility] Comment on above: Performed By: #### C DP, HCG, CMPX #### [facility] [address] [place] [id number] [employer]: Kd Page MD MCH (RBC) [Entitic mass] 30.4 pg Normal 25.2-33.5 [facility] Comment on above: Performed By: #### C DP, HCG, CMPX #### [address] [place] [address] [employer]: Kd Page MD MCHC (RBC) [Mass/Vol] 32.0 g/dL Normal 28.4-34.8 [facility] Comment on above: Performed By: #### C DP, HCG, CMPX #### [address] [place] [id number] [employer]: Kd Page MD MCV (RBC) [Entitic vol] 94.8 fL Normal 82.6-102.9 [facility] Comment on above: Performed By: #### C DP, HCG, CMPX #### [facility] [address] [place] [phone] [employer]: Kd Page MD Monocytes (Bld) [#/Vol] 0.62 10*3/uL Normal 0.10-1.20 [facility] Comment on above: Performed By: #### C DP, HCG, CMPX #### [facility] [address] [place], [place] [id number] [employer]: Kd Page MD Monocytes/100 WBC (Bld) 8 % Normal 3-12 M [facility] Comment on above: Performed By: #### C DP, HCG, CMPX #### [facility] [address] [place], [place] [id number] [employer]: dK Page MD Neutrophil (Seg) 59 % Normal 36-65 [facility] Comment on above: Performed By: #### C DP, HCG, CMPX #### [facility] [address] [place], [facility]83 [employer]: Kd Page MD NRBC Automated 0.0 per 100 WBC Normal 0.0 [facility] Comment on above: Performed By: #### C DP, HCG, CMPX #### [facility] [address] [place], [facility]83 [employer]: Kd Page MD Platelet mean volume (Bld) [Entitic vol] 11.0 fL Normal 8.1-13.5 [facility] Comment on above: Performed By: #### C DP, HCG, CMPX #### [facility] [address] [place], [place] [id number] [employer]: Kd Page MD Platelets (Bld) [#/Vol] 220 10*3/uL Normal 138-453 [facility] Comment on above: Performed By: #### C DP, HCG, CMPX #### [facility] [address] [place], [facility]83 [employer]: Kd Page MD RBC (Bld) [#/Vol] 4.05 10*6/uL Normal 3.95-5.11 [facility] Comment on above: Performed By: #### C DP, HCG, CMPX #### [facility] [address] [place], [place] [id number] [employer]: Kd Page MD WBC (Bld) [#/Vol] 8.0 10*3/uL Normal 3.5-11.3 [facility] Comment on above: Performed By: #### C DP, HCG, CMPX #### [facility] [address] [place], [place] [phone] [employer]: Kd Page MD Auto Diff Performed NOT REPORTED Normal [facility] Comment on above: Performed By: #### C DP, HCG, CMPX #### [facility] [address] [place] [address] Teacher Of [employer] Imp[employer]: Kd Page MD Platelets (Bld) [#/Vol] NOT REPORTED Normal [facility] Comment on above: Performed By: #### C DP, HCG, CMPX #### [facility] [address] [place] [address] [employer]: Kd Page MD RBC morphology finding Nom (Bld) NOT REPORTED Normal [facility] Comment on above: Performed By: #### C DP, HCG, CMPX #### [facility] [address] [place], [place] [phone] [employer]: Kd Page MD WBC Morphology NOT REPORTED Normal [facility] Comment on above: Performed By: #### C DP, HCG, CMPX #### [facility] [address] [place], [place] [id number] [employer]: Kd Page MD Comp Metabolic Pr/rfx MGon 0 07-29-2019 (cont.) Normal [facility] Comment on above: Result Comment: Aver age GFR for 30-39 years old: 107 mL/min/1.73sq m Chronic Kidney Disease: <60 mL/min/1.73sq m Kidney failure: <15 mL/min/1.73sq m eGFR calculated using average adult body mass. Additional eGFR calculator available at: http://www.Contextors.SomnoMed/multiple_crcl_2012.htm Performed By: #### C DP, HCG, CMPX #### [facility] [address] [place], [place] [id number] [employer]: Kd Page MD Albumin [Mass/Vol] 3.6 g/dL Normal 3.5-5.2 [facility] Comment on above: Performed By: #### C DP, HCG, CMPX #### [facility] [address] [place] [address] Teacher Of [employer]: Kd Page MD Albumin/Globulin [Mass ratio] 1.1 {ratio} Normal 1.0-2.5 [facility] Comment on above: Performed By: #### C DP, HCG, CMPX #### [facility] [address] [place] [address] Teacher [employer]: Kd Page MD Alkaline Phos 48 U/L Normal 35-104 [facility] Comment on above: Performed By: #### C DP, HCG, CMPX #### [facility] [address] [place] [address] Teacher Of [employer]: Kd Page MD ALT [Catalytic activity/Vol] U/L Low 5-33 [facility] Comment on above: Performed By: #### C DP, HCG, CMPX #### [facility] [address] [place] [address] Teacher Of [employer] Impaired: Kd Page MD Anion gap [Moles/Vol] 11 mmol/L Normal 9-17 [facility] Comment on above: Performed By: #### C DP, HCG, CMPX #### [facility] [address] [place] [address] Teacher Of [employer]: Kd Page MD AST [Catalytic activity/Vol] 20 U/L Normal <32 [facility] Comment on above: Performed By: #### C DP, HCG, CMPX #### [facility] [address] [place] [address] Teacher Of The [employer] Impaired: Kd Page MD Bilirubin Ql (U) 0.28 mg/dL Low 0.3-1.2 [facility] Comment on above: Performed By: #### C DP, HCG, CMPX #### [facility] [address] [place], [place] [id number] Teacher [employer]: Kd Page MD BUN/CRE Ratio 10 Normal 9-20 [facility] Comment on above: Performed By: #### C DP, HCG, CMPX #### [facility] [address] [place], [place] [phone] [employer]: Kd Page MD Calcium [Mass/Vol] 9.0 mg/dL Normal 8.6-10.4 [facility] Comment on above: Performed By: #### C DP, HCG, CMPX #### [facility] [address] [place], [place] [id number] [employer]: Kd Page MD Chloride [Moles/Vol] 103 mmol/L Normal 98-107 [facility] Comment on above: Performed By: #### C DP, HCG, CMPX #### [facility] [address] [place], [place] [id number] Teacher [employer]: Kd Page MD CO2 [Moles/Vol] 24 mmol/L Normal 20-31 [facility] Comment on above: Performed By: #### C DP, HCG, CMPX #### [facility] [address] [place], [place] [id number] Teacher [employer]: Kd Page MD Creatinine [Mass/Vol] 0.59 mg/dL Normal 0.50-0.90 [facility] Comment on above: Performed By: #### C DP, HCG, CMPX #### [facility] [address] [place], [place] [id number] Teacher [employer]: Kd Page MD GFR, Amer >60 Normal >60 [facility] Comment on above: Performed By: #### C DP, HCG, CMPX #### [facility] [address] [place] [address] Teacher [employer]: Kd Page MD GFR,non Amer >60 Normal >60 [facility] Comment on above: Performed By: #### C DP, HCG, CMPX #### [facility] [address] [place] [address] Teacher [employer]: Kd Page MD Glucose [Mass/Vol] 85 mg/dL Normal 70-99 [facility] Comment on above: Performed By: #### C DP, HCG, CMPX #### [facility] [address] [place] [address] Teacher [employer]: Kd Page MD Potassium [Moles/Vol] 4.1 mmol/L Normal 3.7-5.3 [facility] Comment on above: Performed By: #### C DP, HCG, CMPX #### [facility] [address] [place] [address] Teacher [employer]: Kd Page MD Protein [Mass/Vol] 6.8 g/dL Normal 6.4-8.3 [facility] Comment on above: Performed By: #### C DP, HCG, CMPX #### [facility] [address] [place] [address] Teacher [employer]: Kd Page MD Sodium [Moles/Vol] 138 mmol/L Normal 135-144 [facility] Comment on above: Performed By: #### C DP, HCG, CMPX #### [facility] [address] [place] [address] Teacher [employer]: Kd Page MD Staging: Normal [facility] Comment on above: Result Comment: Stag e 1: Some kidney damage normal GFR Stage 2: Mild kidney damage GFR 60-89 Stage 3: Moderate kidney damage GFR 30-59 Stage 4: Severe kidney damage GFR 15-29 Stage 5: Severe kidney damage GFR <15 ESRD - chronic treatment by dialysis or transplant Performed By: #### C DP, HCG, CMPX #### [facility] [address] [place] [address] Teacher [employer]: Kd Page MD Urea nitrogen [Mass/Vol] 6 mg/dL Normal 6-20 [facility] Comment on above: Performed By: #### C DP, HCG, CMPX #### [facility] [address] [place] [address] Teacher [employer]: Kd Page MD Comprehensive Metabolic Pane l w/ Reflex to MGOrdered By: Tobias Hogan on 07-29-2019 Albumin [Mass/Vol] 3.6 g/dL 3.5 - 5.2 g/dL [facility] Phone: Albumin/Globulin [Mass ratio] 1.1 {ratio} [facility] Phone: ALP [Catalytic activity/Vol] 48 U/L 35 - 104 U/L [facility] Phone: ALT [Catalytic activity/Vol] U/L Low 5 - 33 U/L [facility] [employer] Phone: Anion gap [Moles/Vol] 11 mmol/L 9 - 17 mmol/L [facility] Phone: AST [Catalytic activity/Vol] 20 U/L <32 [facility] Phone: Bilirubin [Mass/Vol] 0.28 mg/dL Low 0.3 - 1 .2 mg/dL [facility] Phone: Bun/Cre Ratio 10 [facility] Work Phone: Calcium [Mass/Vol] 9.0 mg/dL 8.6 - 10. 4 mg/dL [facility] Phone: Chloride [Moles/Vol] 103 mmol/L 98 - 10 7 mmol/L [facility] Phone: CO2 [Moles/Vol] 24 mmol/L 20 - 31 mmol/L [facility] Work Phone: Creatinine [Mass/Vol] 0.59 mg/dL 0.5 - 0.9 mg/dL [employer] Phone: GFR >60 >60 mL/min [employer] Phone: GFR Comment [employer] Phone: Comment on above: Average GFR for 30-3 9 years old: 107 mL/min/1.73sq m Chronic Kidney Disease: <60 mL/min/1.73sq m Kidney failure: <15 mL/min/1.73sq m eGFR calculated using average adult body mass. Additional eGFR calculator available at: http://www.Sightlogix/multiple_crcl_2012.htm GFR Non- >60 >60 mL/min [employer] Phone: GFR Staging [employer] Phone: Comment on above: Stage 1: Some kidney damage normal GFR Stage 2: Mild kidney damage GFR 60-89 Stage 3: Moderate kidney damage GFR 30-59 Stage 4: Severe kidney damage GFR 15-29 Stage 5: Severe kidney damage GFR <15 ESRD - chronic treatment by dialysis or transplant Glucose [Mass/Vol] 85 mg/dL 70 - 99 mg/dL [facility] [employer] Phone: Interpretation and review of laboratory results Abnormal [employer] Phone: Potassium [Moles/Vol] 4.1 mmol/L 3.7 - 5.3 mmol/L [employer] Phone: Protein [Mass/Vol] 6.8 g/dL 6.4 - 8.3 g/dL [employer] Phone: Sodium [Moles/Vol] 138 mmol/L 135 - 144 mmol/L [employer] Phone: Urea nitrogen [Mass/Vol] 6 mg/dL 6 - 20 mg/dL [employer] Phone: HCG Qualitative, SerumOrdere d By: Tobias Hogan on 07-29-2019 hCG Qual Negative NEGATIVE [employer] Phone: Comment on above: Specimens with hCG l evels near the threshold of the test (25 mIU/mL) may give a negative or indeterminate result. In such cases, another test should be performed with a new specimen in 48-72 hours. If early is suspected clinically in this setting, correlation with quantitative serum b-hCG level is suggested. [facility] has confirmed the use of plasma for this test. This has not been cleared or approved by the U.S. Food and Drug Administration. The FDA has determined that such clearance is not necessary. HCG Screen, Bloodon 07-29-19 20 HCG Qn Negative Normal NEG [facility] Comment on above: Result Comment: Spec imens with hCG levels near the threshold of the test (25 mIU/mL) may give a negative or indeterminate result. In such cases, another test should be performed with a new specimen in 48-72 hours. If early is suspected clinically in this setting, correlation with quantitative serum b-hCG level is suggested. [employer] has confirmed the use of plasma for this test. This has not been cleared or approved by the U.S. Food and Drug Administration. The FDA has determined that such clearance is not necessary. Performed By: #### C DP, HCG, CMPX #### [facility] [address] [place] [address] Teacher Of [employer]: Kd Page MD Keppraon 07-29-2019 KEPP 13 ug/mL Normal [facility] Comment on above: Result Comment: A [...] By: #### C DP, CP, LIP #### [facility] [address] [place] [address] Teacher [employer]: Kd Page MD XR CHEST (2 VW)on [...] Héctor Kimble MD 07/29/19 Final result Normal [facility] XR CHEST STANDARD (2 VW)Orde red By: Tobias Hogan on 07-29-2019 Lateral left costophrenic pleural thickening with surgical drains in the left upper abdomen. [employer] Phone: EXAMINATION: TWO XRAY VIEWS OF THE [...] abdomen. Cholecystectomy clips. No subdiaphragmatic free air. [employer] Phone: Abner, pn Incoming Radiant Results From [employer] / [employer]ader[employer] - 07/29/2019 3:11 PM EST EXAMINATION: TWO [...] surgical drains in the left upper abdomen. [employer] Work Phone: CBC Auto DifferentialOrdered By: Krishna Jefferson on 07-23-2019 Absolute Eos # 0.27 Volly [facility] Work Phone: Absolute Immature Granulocyte <0.03 [employer] Work Phone: Absolute Lymph # 2.78 [employer] [facility] Work Phone: Absolute Brewster # 0.56 [employer] [facility] Work Phone: Basophils (Bld) [#/Vol] 0.06 10*3/uL [employer] Phone: Basophils/100 WBC (Bld) 1 % 0 - 2 % M [employer] Work Phone: Differential Type NOT REPORTED [employer] Phone: Eosinophils/100 WBC (Bld) 3 % 1 - 4 % [employer] Phone: Erythrocyte distribution width (RBC) [Ratio] 13.1 % 11.8 - 14.4 % [employer] Phone: Hematocrit (Bld) [Volume fraction] 38.7 % 36.3 - 47.1 % [employer] Phone: Hemoglobin (Bld) [Mass/Vol] 12.4 g/dL 11.9 - 15.1 g/dL [employer] Phone: Immature granulocytes/100 WBC (Bld) 0 % 0 [employer] Phone: Lymphocytes/100 WBC (Bld) 33 % 24 - 43 % [employer] Phone: MCH (RBC) [Entitic mass] 30.9 pg 25.2 - 33.5 pg [employer] Phone: MCHC (RBC) [Mass/Vol] 32.0 g/dL 28.4 - 34.8 g/dL [employer] Phone: MCV (RBC) [Entitic vol] 96.5 fL 82.6 - 102.9 fL [employer] Phone: Monocytes/100 WBC (Bld) 7 % 3 - 12 % [facility] Phone: NRBC Automated 0.0 0.0 per 100 WBC [facility] Phone: Platelet Estimate NOT REPORTED [facility] Phone: Platelet mean volume (Bld) [Entitic vol] 10.4 fL 8.1 - 13.5 fL [facility] Phone: Platelets (Bld) [#/Vol] 264 10*3/uL [facility] Work Phone: RBC (Bld) [#/Vol] 4.01 10*6/uL 3.95 - 5.1 1 m/uL [employer] Work Phone: RBC morphology finding Nom (Bld) NOT REPORTED [facility] [employer] Phone: Segmented neutrophils/100 WBC (Bld) 56 % 36 - 65 % [facility] Work Phone: Segs Absolute 4.66 [facility] Work Phone: WBC (Bld) [#/Vol] 8.3 10*3/uL [facility] Work Phone: WBC Morphology NOT REPORTED [facility] Work Phone: CBC with Diffon 07-23-2019 Abs. Basophil 0.06 k/uL Normal 0.00-0.20 [facility] Comment on above: Performed By: #### C DP, CP, LIP #### [facility] [address] [place] [address] Teacher Of [employer]: Kd Page MD Abs.Imm.Granulocyte <0.03 Normal 0.00-0.30 [facility] Comment on above: Performed By: #### C DP, CP, LIP #### [facility] [address] [place] [address] Teacher Of [employer]: Kd Page MD Abs.Neutrophil (Seg) 4.66 k/uL Normal 1.50-8.10 [facility] Comment on above: Performed By: #### C DP, CP, LIP #### [facility] [address] [place] [address] Teacher Of [employer]: Kd Page MD Basophils/100 WBC (Bld) 1 % Normal 0-2 [facility] Comment on above: Performed By: #### C DP, CP, LIP #### [address] [place] [address] Teacher Of [employer]: Kd Page MD Eosinophils (Bld) [#/Vol] 0.27 10*3/uL Normal 0.00-0.44 [facility] Comment on above: Performed By: #### C DP, CP, LIP #### [address] [place] [address] Teacher Of [employer]: Kd Page MD Eosinophils/100 WBC (Bld) 3 % Normal 1-4 [facility] Comment on above: Performed By: #### C DP, CP, LIP #### [address] [place], [place] [address] Teacher Of [employer]: Kd Page MD Erythrocyte distribution width (RBC) [Ratio] 13.1 % Normal 11.8-14.4 [facility] Comment on above: Performed By: #### C DP, CP, LIP #### [address] [place] [id number] Teacher [employer] Imp[employer]: Kd Page MD Hematocrit (Bld) [Volume fraction] 38.7 % Normal 36.3-47.1 [facility] Comment on above: Performed By: #### C DP, CP, LIP #### [facility] [address] [place], [place] [address] Teacher Of [employer] Imp[employer]: Kd Page MD Hemoglobin (Bld) [Mass/Vol] 12.4 g/dL Normal 11.9-15.1 [facility] Comment on above: Performed By: #### C DP, CP, LIP #### [address] [place], [place] [address] Teacher Of [employer]: Kd Page MD Immature granulocytes (Bld) [#/Vol] 0 % Normal 0 [facility] Comment on above: Performed By: #### C DP, CP, LIP #### [address] [place] [address] Teacher Of [employer]: Kd Page MD Lymphocytes (Bld) [#/Vol] 2.78 10*3/uL Normal 1.10-3.70 [facility] Comment on above: Performed By: #### C DP, CP, LIP #### [address] [place] [address] Teacher Of [employer]: Kd Page MD Lymphocytes/100 WBC (Bld) 33 % Normal 24-43 [facility] Comment on above: Performed By: #### C DP, CP, LIP #### [address] [place], [place] [address] Teacher Of [employer] Imp[employer]: Kd Page MD MCH (RBC) [Entitic mass] 30.9 pg Normal 25.2-33.5 [facility] Comment on above: Performed By: #### C DP, CP, LIP #### [address] [place] [id number] Teacher Of [employer] Sight Impaired: Kd Page MD MCHC (RBC) [Mass/Vol] 32.0 g/dL Normal 28.4-34.8 [facility] Comment on above: Performed By: #### C DP, CP, LIP #### [address] [place], [place] [id number] Teacher Of The Sight Imp[employer]: Kd Page MD MCV (RBC) [Entitic vol] 96.5 fL Normal 82.6-102.9 [facility] Comment on above: Performed By: #### C DP, CP, LIP #### [address] [place], [place] [address] Teacher Of [employer] S[employer] Imp[employer]: Kd Page MD Monocytes (Bld) [#/Vol] 0.56 10*3/uL Normal 0.10-1.20 [facility] Comment on above: Performed By: #### C DP, CP, LIP #### [address] [place], [facility]83 Teacher Of [employer]: Kd Page MD Monocytes/100 WBC (Bld) 7 % Normal 3-12 [facility] Comment on above: Performed By: #### C DP, CP, LIP #### [address] [place], [facility]83 Teacher Of [employer]: Kd Page MD Neutrophil (Seg) 56 % Normal 36-65 [facility] Comment on above: Performed By: #### C DP, CP, LIP #### [address] [place], [facility]83 Teacher Of [employer]: Kd Page MD NRBC Automated 0.0 per 100 WBC Normal 0.0 [facility] Comment on above: Performed By: #### C DP, CP, LIP #### [address] [place], [facility]83 Teacher Of [employer]: Kd Page MD Platelet mean volume (Bld) [Entitic vol] 10.4 fL Normal 8.1-13.5 [facility] Comment on above: Performed By: #### C DP, CP, LIP #### [address] [place], [facility]83 Teacher Of [employer]: Kd Page MD Platelets (Bld) [#/Vol] 264 10*3/uL Normal 138-453 [facility] Comment on above: Performed By: #### C DP, CP, LIP #### [facility] [address] [place] [address] Teacher Of The Sight Imp[employer]: Kd Page MD RBC (Bld) [#/Vol] 4.01 10*6/uL Normal 3.95-5.11 [facility] Comment on above: Performed By: #### C DP, CP, LIP #### [facility] [address] [place] [address] Teacher Of [employer] Sight Imp[employer]: Kd Page MD WBC (Bld) [#/Vol] 8.3 10*3/uL Normal 3.5-11.3 [facility] Comment on above: Performed By: #### C DP, CP, LIP #### [facility] [address] [place], [place] [address] Teacher Of The Sight Imp[employer]: Kd Page MD Auto Diff Performed NOT REPORTED Normal [facility] Comment on above: Performed By: #### C DP, CP, LIP #### [facility] [address] [place] [address] Teacher Of [employer] Sight Imp[employer]: Kd Page MD Platelets (Bld) [#/Vol] NOT REPORTED Normal [facility] Comment on above: Performed By: #### C DP, CP, LIP #### [facility] [address] [place] [address] Teacher Of [employer]ight Impaired: Kd Page MD RBC morphology finding Nom (d) NOT REPORTED Normal [facility] Comment on above: Performed By: #### C DP, CP, LIP #### [facility] [address] [place] [address] Teacher Of [employer] Sight Imp[employer]: Kd Page MD WBC Morphology NOT REPORTED Normal [facility] Comment on above: Performed By: #### C DP, CP, LIP #### [facility] [address] [place] [address] Teacher Of [employer] Sight Impaired: Kd Page MD CT ABDOMEN PELVIS W [...] Dusty Krueger MD 07/23/19 Final result Normal [facility] CT ABDOMEN PELVIS W IV CONTR ASTOrdered By: Krishna Jefferson on 07-23-2019 No bowel obstruction. No extravasation of oral contrast. Percutaneous drain within the left upper quadrant. Small perisplenic collection is suspected to be an abscess. Drain is seen adjacent to this but not directly within it. [facility] Work Phone: EXAMINATION: CT OF THE ABDOMEN AND [...] acute soft tissue abnormality. No osseous abnormality. [employer] Work Phone: Abner, [facility] Incoming Radiant Results From [employer] / [employer]ader/[employer] - 07/23/2019 6:14 PM EST EXAMINATION: CT [...] to this but not directly within it. [facility] Work Phone: Comp Metabolic Profon 2018 (cont.) Normal [facility] Comment on above: Result Comment: Aver age GFR for 30-39 years old: 107 mL/min/1.73sq m Chronic Kidney Disease: <60 mL/min/1.73sq m Kidney failure: <15 mL/min/1.73sq m eGFR calculated using average adult body mass. Additional eGFR calculator available at: http://www.Contextors.SomnoMed/multiple_crcl_2012.htm Performed By: #### C JP ENGLISH, LIP #### [address] [place] [address] Teacher Of [employer]: Kd Page MD Albumin [Mass/Vol] 3.7 g/dL Normal 3.5-5.2 [facility] Comment on above: Performed By: #### C JP ENGLISH, LIP #### [address] [place] [address] Teacher Of [employer] Imp[employer]: Kd Page MD Albumin/Globulin [Mass ratio] 1.0 {ratio} Normal 1.0-2.5 [facility] Comment on above: Performed By: #### C JP ENGLISH, LIP #### [address] [place] [address] Teacher Of [employer] Imp[employer]: Kd Page MD Alkaline Phos 57 U/L Normal 35-104 [facility] Comment on above: Performed By: #### C DP, CP, LIP #### [facility] [address] [place], [place] [address] Teacher Of [employer] Imp[employer]: Kd Page MD ALT [Catalytic activity/Vol] 10 U/L Normal 5-33 [facility] Comment on above: Performed By: #### C DP, CP, LIP #### [facility] [address] [place], [place] [id number] Teacher Of [employer] Impaired: Kd Page MD Anion gap [Moles/Vol] 11 mmol/L Normal 9-17 [facility] Comment on above: Performed By: #### C DP, CP, LIP #### [facility] [address] [place], [place] [address] Teacher Of The Sight Impaired: Kd Page MD AST [Catalytic activity/Vol] 18 U/L Normal <32 [facility] Comment on above: Performed By: #### C DP, CP, LIP #### [facility] [address] [place], [place] [address] Teacher Of [employer] Imp[employer]: Kd Page MD Bilirubin Ql (U) 0.20 mg/dL Low 0.3-1.2 [facility] Comment on above: Performed By: #### C DP, CP, LIP #### [facility] [address] [place], [place] [address] Teacher Of The S[employer] Imp[employer]: Kd Page MD BUN/CRE Ratio 17 Normal 9-20 [facility] Comment on above: Performed By: #### C DP, CP, LIP #### [facility] [address] [place], [place] [address] Teacher Of [employer] Impaired: Kd Page MD Calcium [Mass/Vol] 9.0 mg/dL Normal 8.6-10.4 [facility] Comment on above: Performed By: #### C DP, CP, LIP #### [facility] [address] [place], [place] [address] Teacher Of [employer]: Kd Page MD Chloride [Moles/Vol] 104 mmol/L Normal 98-107 [facility] Comment on above: Performed By: #### C DP, CP, LIP #### [facility] [address] [place] [address] Teacher Of The Sight Impaired: Kd Page MD CO2 [Moles/Vol] 24 mmol/L Normal 20-31 [facility] Comment on above: Performed By: #### C DP, CP, LIP #### [facility] [address] [place] [address] Teacher Of The Sight Impaired: Kd Page MD Creatinine [Mass/Vol] 0.48 mg/dL Low 0.50-0.90 [facility] Comment on above: Performed By: #### C DP, CP, LIP #### [facility] [address] [place] [address] Teacher Of [employer]ight Imp[employer]: Kd Page MD GFR, Amer >60 Normal >60 [facility] Comment on above: Performed By: #### C DP, CP, LIP #### [facility] [address] [place], [place] [address] Teacher Of [employer] Imp[employer]: Kd Page MD GFR,non Amer >60 Normal >60 [facility] Comment on above: Performed By: #### C DP, CP, LIP #### [facility] [address] [place] [address] Teacher Of The Sight Impaired: Kd aPge MD Glucose [Mass/Vol] 93 mg/dL Normal 70-99 [facility] Comment on above: Performed By: #### C DP, CP, LIP #### [facility] [address] [place] [address] Teacher Of [employer] Sight Impaired: Kd Page MD Potassium [Moles/Vol] 3.6 mmol/L Low 3.7-5.3 [facility] Comment on above: Performed By: #### C DP, CP, LIP #### [facility] [address] [place] [address] Teacher Of [employer]: Kd Page MD Protein [Mass/Vol] 7.4 g/dL Normal 6.4-8.3 [facility] Comment on above: Performed By: #### C DP, CP, LIP #### [facility] [address] [place] [address] Teacher Of [employer]: Kd Page MD Sodium [Moles/Vol] 139 mmol/L Normal 135-144 [facility] Comment on above: Performed By: #### C DP, CP, LIP #### [facility] [address] [place] [address] Teacher Of [employer]: Kd Page MD Staging: Normal [facility] Comment on above: Result Comment: Stag e 1: Some kidney damage normal GFR Stage 2: Mild kidney damage GFR 60-89 Stage 3: Moderate kidney damage GFR 30-59 Stage 4: Severe kidney damage GFR 15-29 Stage 5: Severe kidney damage GFR <15 ESRD - chronic treatment by dialysis or transplant Performed By: #### C DP, CP, LIP #### [facility] [address] [place] [address] Teacher Of [employer]: Kd Page MD Urea nitrogen [Mass/Vol] 8 mg/dL Normal 6-20 [facility] Comment on above: Performed By: #### C DP, CP, LIP #### [facility] [address] [place] [address] Teacher Of [employer]: Kd Page MD [facility] lOrdered By: Krishna Jefferson on 07-23-2019 Albumin [Mass/Vol] 3.7 g/dL 3.5 - 5.2 g/dL [facility] Work Phone: Albumin/Globulin [Mass ratio] 1.0 {ratio} [facility] [employer] Phone: ALP [Catalytic activity/Vol] 57 U/L 35 - 104 U/L [facility] Work Phone: ALT [Catalytic activity/Vol] 10 U/L 5 - 33 U/L [employer] Phone: Anion gap [Moles/Vol] 11 mmol/L 9 - 17 mmol/L [employer] Phone: AST [Catalytic activity/Vol] 18 U/L <32 [employer] Phone: Bilirubin [Mass/Vol] 0.20 mg/dL Low 0.3 - 1 .2 mg/dL [employer] Phone: Bun/Cre Ratio 17 [employer] Work Phone: Calcium [Mass/Vol] 9.0 mg/dL 8.6 - 10. 4 mg/dL [employer] Phone: Chloride [Moles/Vol] 104 mmol/L 98 - 10 7 mmol/L [employer] Phone: CO2 [Moles/Vol] 24 mmol/L 20 - 31 mmol/L [employer] Phone: Creatinine [Mass/Vol] 0.48 mg/dL Low 0.5 - 0.9 mg/dL [employer] Phone: GFR >60 >60 mL/min [employer] Phone: GFR Comment [employer] Phone: Comment on above: Average GFR for 30-3 9 years old: 107 mL/min/1.73sq m Chronic Kidney Disease: <60 mL/min/1.73sq m Kidney failure: <15 mL/min/1.73sq m eGFR calculated using average adult body mass. Additional eGFR calculator available at: http://www.Contextors.SomnoMed/multiple_crcl_2012.htm GFR Non- >60 >60 mL/min [employer] Phone: GFR Staging [employer] Phone: Comment on above: Stage 1: Some kidney damage normal GFR Stage 2: Mild kidney damage GFR 60-89 Stage 3: Moderate kidney damage GFR 30-59 Stage 4: Severe kidney damage GFR 15-29 Stage 5: Severe kidney damage GFR <15 ESRD - chronic treatment by dialysis or transplant Glucose [Mass/Vol] 93 mg/dL 70 - 99 mg/dL [facility] [employer] Phone: Potassium [Moles/Vol] 3.6 mmol/L Low 3.7 - 5.3 mmol/L [facility] [employer] Phone: Protein [Mass/Vol] 7.4 g/dL 6.4 - 8.3 g/dL [facility] [employer] Phone: Sodium [Moles/Vol] 139 mmol/L 135 - 144 mmol/L [facility] [employer] Phone: Urea nitrogen [Mass/Vol] 8 mg/dL 6 - 20 mg/dL [facility] [employer] Phone: Lipaseon 07-23-2019 Lipase [Catalytic activity/Vol] 70 U/L High 13-60 [facility] Comment on above: Performed By: #### C DP, CP, LIP #### [facility] [address] [place] [address] Teacher Of The S[employer] Imp[employer]: Kd Page MD LipaseOrdered By: Krishna tatum on 07-23-2019 Lipase [Catalytic activity/Vol] 70 U/L High 13 - 60 U/L [facility] [employer] Phone: Microscopic UrinalysisOrdere d By: Krishna Jefferson on 07-23-2019 - [facility] [employer] Phone: Amorphous, UA NOT REPORTED None [facility] Work Phone: Bacteria, UA 1+ Abnormal None [facility] [employer] Phone: Casts UA NOT REPORTED /LPF [facility] [employer] Phone: Crystals UA 2 TO 5 CALCIUM OXALATE Abnormal None /HPF [facility] [employer] Phone: Epithelial Cells UA 2 TO 5 [employer] Work Phone: Interpretation and review of laboratory results Abnormal [employer] Phone: Mucus, UA 3+ Abnormal None [employer] Phone: Other Observations UA NOT REPORTED NOT REQ. M [facility] Work Phone: RBC, UA 0 TO 2 [employer] Work Phone: Renal Epithelial, Urine NOT REPORTED 0 /HPF [employer] Work Phone: Trichomonas, UA NOT REPORTED None [employer] Work Phone: WBC, UA 0 TO 2 [employer] Phone: Yeast, UA NOT REPORTED None [facility] Phone: No Panel InformationOrdered By: Krishna Jefferson on 07-23-2019 Interpretation and review of laboratory results Abnormal [facility] Phone: UA w/Reflex Cultureon 2018 Acetoacetic Acid,Ur TRACE Abnormal NEG [facility] Comment on above: Performed By: #### U AXLUCIA #### [facility] [address] [place] [address] [place] [address] Teacher Of [employer] Imp[employer]: Kd Page MD Bilirubin, SemiQt,Ur Negative Normal NEG [facility] Comment on above: Performed By: #### U AXCHAYITOICAO #### [facility] [address] [place] [address] Teacher Of The Sight Impaired: Kd Page MD Color (U) YELLOW Normal YEL [facility] Comment on above: Performed By: #### U AXCHAYITOICAO #### [facility] [address] [place] [address] Teacher Of The Sight Impaired: Kd Page MD Glucose Ql (U) Negative Normal NEG [facility] in Hospital Comment on above: Performed By: #### U AXCHAYITOICAO #### [facility] [address] [place], [place] [id number] Teacher Of [employer] Impaired: Kd Page MD Hemoglobin, Ur Negative Normal NEG [facility] in Hospital Comment on above: Performed By: #### U AX, UMICAO #### [facility] [address] [place], [place] [id number] Teacher Of The S[employer] Impaired: Kd Page MD Leukocyte esterase Test strip Ql (U) Negative Normal NEG [facility] Comment on above: Performed By: #### U AX, UMICAO #### [facility] [address] [place], [place] [id number] Teacher Of The S[employer] Impaired: Kd Page MD Nitrite,Ur Negative Normal NEG [facility] Comment on above: Performed By: #### U AX, UMICAO #### [address] [place], [place] [id number] Teacher Of The S[employer] Impaired: Kd Page MD pH (U) 6.0 [pH] Normal 5.0-9.0 [facility] Comment on above: Performed By: #### U AX, UMICAO #### [address] [place], [place] [id number] Teacher Of The Sight Impaired: Kd Page MD Protein Ql (U) Negative Normal NEG [facility] in Hospital Comment on above: Performed By: #### U AX, UMICAO #### [address] [place], [place] [id number] Teacher Of The Sight Impaired: Kd Page MD Specific gravity (U) [Rel density] >1.030 High 1.010-1.020 [facility] Comment on above: Performed By: #### U AX, UMICAO #### [address] [place], [place] [id number] Teacher Of The Sight Imp[employer]: Kd Page MD Turbidity CLEAR Normal CLEAR [facility] Comment on above: Performed By: #### U AX, UMICAO #### [facility] [address] [place] [address] Teacher Of The Sight Impaired: Kd Page MD Urobilinogen,Ur Normal Normal NORM [facility] Comment on above: Performed By: #### U AX, UMICAO #### [facility] [address] [place] [address] Teacher Of The Sight Impaired: Kd Page MD Comment NOT REPORTED Normal [facility] Comment on above: Performed By: #### U AX, UMICAO #### [facility] [address] [place] [address] Teacher Of The Sight Impaired: Kd Page MD Urinalysis Reflex to Culture Ordered By: Krishna Jefferson on 07-23-2019 Bilirubin Urine Negative NEGATIVE [facility] Work Phone: Color, UA YELLOW YELLOW [facility] Work Phone: Glucose, Ur Negative NEGATIVE [facility] Work Phone: Interpretation and review of laboratory results Abnormal [facility] Work Phone: Ketones Ql (U) TRACE Abnormal NEGATIVE [facility] Work Phone: Leukocyte esterase Test strip Ql (U) Negative NEGATIVE [facility] Work Phone: Nitrite, Urine Negative NEGATIVE [facility] Work Phone: pH, UA 6.0 [facility] Work Phone: Protein, UA Negative NEGATIVE [facility] Work Phone: Specific [place], UA >1.030 High [facility] [employer] Work Phone: Turbidity UA CLEAR CLEAR [facility] Work Phone: Urinalysis Comments NOT REPORTED [facility] [employer] Work Phone: Urine Hgb Negative NEGATIVE [facility] Work Phone: Urobilinogen, Urine Normal Normal [facility] Work Phone: Urinalysis,Microon 9 ----- Normal [facility] Comment on above: Performed By: #### U AX, UMICAO #### [facility] [address] [place] [id number] Teacher Of The Sight Impaired: Kd Page MD Bacteria LM.HPF (Urine sed) [#/Area] 1+ Abnormal [facility] Comment on above: Performed By: #### U AX, UMICAO #### [facility] [address] [place] [id number] Teacher Of The Sight Impaired: Kd Page MD Crystals LM Nom (Urine sed) 2 TO 5 Abnormal [facility] Comment on above: Result Comment: CALC IUM OXALATE Performed By: #### U AX, UMICAO #### [facility] [address] [place] [id number] Teacher Of The Sight Impaired: Kd Page MD Epithelial cells LM.HPF (Urine sed) [#/Area] 2 TO 5 Normal 0-25 [facility] Comment on above: Performed By: #### U AX, UMICAO #### [facility] [address] [place] [id number] Teacher Of The Sight Impaired: Kd Page MD Mucus Strands 3+ Abnormal [facility] Comment on above: Performed By: #### U AX, UMICAO #### [facility] [address] [place], [facility] Teacher Of The Sight Impaired: Kd Page MD RBC (U) [#/Vol] 0 TO 2 Normal 0-2 [facility] Comment on above: Performed By: #### U AX, UMICAO #### [facility] [address] [place] [address] Teacher Of The Sight Impaired: Kd Page MD WBC (U) [#/Vol] 0 TO 2 Normal 0-5 [facility] Comment on above: Performed By: #### U AX, UMICAO #### [facility] [address] [place] [address] Teacher Of The Sight Impaired: Kd Page MD Amorphous sediment LM Ql (Urine sed) NOT REPORTED Normal NONE [facility] Comment on above: Performed By: #### U AX, UMICAO #### [facility] [address] [place] [address] Teacher Of The Sight Impaired: Kd Page MD Casts LM.LPF (Urine sed) [#/Area] NOT REPORTED Normal [facility] Comment on above: Performed By: #### U AX, UMICAO #### [facility] [address] [place], [place] [id number] Teacher Of The Sight Impaired: Kd Page MD Epithelial, Renal NOT REPORTED Normal 0 [facility] Comment on above: Performed By: #### U AX, UMICAO #### [facility] [address] [place], [facility] Teacher Of The Sight Impaired: Kd Page MD Other Observations NOT REPORTED Normal NREQ [facility] Comment on above: Performed By: #### U AX, UMICAO #### [facility] [address] [place] [address] Teacher Of The Sight Impaired: Kd Page MD Trichomonas NOT REPORTED Normal NONE [facility] Comment on above: Performed By: #### U AX, UMICAO #### [facility] [address] [place], [facility]83 Teacher Of The Sight Impaired: Kd Page MD Yeast LM Ql (Urine sed) NOT REPORTED Normal NONE [facility] Comment on above: Performed By: #### U AX, UMICAO #### [facility] [address] [place], [place] [address] Teacher Of The Sight Impaired: Kd Page MD Vital Signs Date Time Vital Sign Value Performing Clinician Faci lity 05-26-2022 10:37-0400 Body height 165.1 cm Sanket Medina MD Work Phone: [facility] 05-26-2022 10:37-0400 Body mass index (BMI) [Ratio] 23.48 kg/m2 Sanket Medina MD Work Phone: [facility] 05-26-2022 10:37-0400 Body temperature 98.01 [degF] Sanket Medina MD Work Phone: [facility] 05-26-2022 10:37-0400 Body weight 64 kg Sanket Medina MD Work Phone: [facility] 05-26-2022 10:37-0400 Diastolic blood pressure 62 mm[Hg] Sanket Medina MD Work Phone: [facility] 05-26-2022 10:37-0400 Heart rate 104 /min Sanket Medina MD Work Phone: [facility] 05-26-2022 10:37-0400 Systolic blood pressure 120 mm[Hg] Sanket Medina MD Work Phone: [facility] 01-04-2020 10:15-0400 Pulse (Heart Rate) 60 /min [facility] [place] 01-04-2020 10:15-0400 Pulse Oximetry 97 % [facility] [place] 01-04-2020 10:10-0400 BP Diastolic 61 mm[Hg] [facility] [place] 01-04-2020 10:10-0400 BP Systolic 101 mm[Hg] Jeannie [facility], [place] 01-04-2020 10:10-0400 Respiratory Rate 14 /min [place] 01-04-2020 09:45-0400 Body Temperature 98.2 [degF] [facility] [place] 01-04-2020 08:40-0400 BMI (Body Mass Index) 23.82 kg/m2 Jeannie Lucas [facility], [place] 01-04-2020 08:40-0400 Body weight 66.95 kg Jeannie Garcia [facility] [place] 01-04-2020 08:40-0400 Height 167.6 cm Jeannie Garcia [facility], [place] 12-18-2019 08:54-0400 Body Temperature 98.1 [degF] Tobias Zavala [facility] [place] 12-18-2019 08:54-0400 BP Diastolic 59 mm[Hg] [facility] [place] 12-18-2019 08:54-0400 BP Systolic 99 mm[Hg] [facility] [place] 12-18-2019 08:54-0400 Pulse (Heart Rate) 86 /min [facility], [place] 12-18-2019 08:54-0400 Pulse Oximetry 98 % Tobias Kil[facility]Northern [facility] Hospital[facility] [place] 12-18-2019 08:54-0400 Respiratory Rate 16 /min [facility] [place] 12-15-2019 22:00-0400 BMI (Body Mass Index) 24.46 kg/m2 Tobias Lucas [facility], [place] 12-15-2019 22:00-0400 Body weight 66.68 kg [facility] [place] 12-15-2019 22:00-0400 Height 165.1 cm [facility] [place] 07-29-2019 16:39-0500 Respiratory rate 16 /min Tobias SotoPogoapp Work Phone: [employer] Work Phone: 07-29-2019 16:25-0500 SaO2% (BldA) [Mass fraction] 100 % Iris [employer] Work Phone: [employer] Phone: 07-29-2019 16:21-0500 Diastolic blood pressure 78 mm[Hg] Tobias Moserrov Myze Work Phone: [employer] Work Phone: 07-29-2019 16:21-0500 Systolic blood pressure 114 mm[Hg] Tobias Hogan DO Work Phone: [employer] Work Phone: 07-29-2019 14:55-0500 Heart rate 66 /min Tobias Hogan DO Work Phone: [employer] Work Phone: 07-29-2019 13:05-0500 Body mass index (BMI) [Ratio] 19.64 kg/m2 Tobias Hogan DO Work Phone: [employer] Work Phone: 07-29-2019 13:05-0500 Body temperature 98.29 [degF] Tobias Hogan DO Work Phone: [employer] Work Phone: 07-29-2019 13:05-0500 Body weight 53.52 kg Tobias Hogan DO Work Phone: [employer] Work Phone: 07-23-2019 21:40-0500 Body height 165.1 cm [place] Caballero MD Work Phone: [employer] Work Phone: 07-23-2019 21:40-0500 Body mass index (BMI) [Ratio] 19.14 kg/m2 [place] Caballero MD Work Phone: [employer] Work Phone: 07-23-2019 21:40-0500 Body temperature 98.6 [degF] [place] Caballero MD Work Phone: [employer] Work Phone: 07-23-2019 21:40-0500 Body weight 52.16 kg [place] Caballero MD Work Phone: [employer] Work Phone: 07-23-2019 21:40-0500 Diastolic blood pressure 63 mm[Hg] [place] Caballero MD Work Phone: [employer] Work Phone: 07-23-2019 21:40-0500 Heart rate 85 /min [place] Caballero MD Work Phone: [employer] Work Phone: 07-23-2019 21:40-0500 Respiratory rate 18 /min [place] Caballero MD Work Phone: [employer] Work Phone: 07-23-2019 21:40-0500 SaO2% (BldA) [Mass fraction] 99 % [place] Caballero MD Work Phone: [employer] Work Phone: 07-23-2019 21:40-0500 Systolic blood pressure 103 mm[Hg] [place] Caballero MD Work Phone: [employer] Phone: 07-23-2019 20:09-0500 Diastolic blood pressure 58 mm[Hg] [employer] Phone: 07-23-2019 20:09-0500 Heart rate 77 /min [employer] Phone: 07-23-2019 20:09-0500 SaO2% (BldA) [Mass fraction] 99 % [employer] Phone: 07-23-2019 20:09-0500 Systolic blood pressure 105 mm[Hg] [employer] Phone: 07-23-2019 19:06-0500 Body temperature 97.7 [degF] [employer] Phone: 07-23-2019 13:46-0500 Body weight 52.16 kg [employer] Phone: 07-23-2019 13:46-0500 Respiratory rate 18 /min [employer] Phone: Encounters Encounter Date Encounter Type Care Provider Facility Start: 01-03-2024 End: 01-03-2024 ambulatory Lorin Traylor APRN-[employer] TECHNICIAN Facility:[facility] Start: 12-13-2023 ambulatory Lorin Shanti Cleempu t WRISTER-AIR [employer] TECHNICIAN Facility:[facility] Start: 09-23-2023 End: 09-23-2023 ambulatory Anson Patiño DO Facility:[facility] Start: 07-21-2023 End: 07-21-2023 ambulatory Anson Patiño DO Facility:[facility] Start: 06-27-2023 End: 06-27-2023 ambulatory [facility] Start: 06-09-2023 End: 06-09-2023 ambulatory Anson Patiño DO Facility:[facility] Start: 05-30-2023 ambulatory Lorin Shanti Cleempu t WRISTER-[employer] TECHNICIAN Facility:[facility] Start: 04-29-2023 End: 04-29-2023 ambulatory Lorin Shanti Cleemput WRISTER-[employer] TECHNICIAN Facility:[facility] Start: 04-22-2023 End: 04-22-2023 ambulatory Jaquelin Medina Vipin [facility] Work Phone: [facility] [place] Start: 04-22-2023 End: 04-22-2023 Patient encounter procedure Jaquelin Medina Vipin [facility] Work Phone: [facility] [place] Start: 03-07-2023 End: 03-07-2023 ambulatory [facility] Start: 02-22-2023 End: 02-22-2023 ambulatory Lorin Shanti Cleemput W[employer] TECHNICIAN Facility:[facility] Start: 02-14-2023 End: 02-14-2023 ambulatory Lorin Shanti Cleemput [employer] TECHNICIAN Facility:[facility] Start: 02-07-2023 End: 02-07-2023 ambulatory Lorin Shanti Cleemput [employer] TECHNICIAN Facility:[facility] Start: 01-10-2023 End: 01-10-2023 ambulatory Lorin Shanti Cleemput [employer] TECHNICIAN Facility:[facility] Start: 12-27-2022 End: 12-27-2022 ambulatory [facility] Start: 12-27-2022 Patient encounter procedure Shanita Healy RPh,PharmShelia [facility] Start: 12-23-2022 End: 12-23-[address] [facility] Start: 05-26-2022 ambulatory LORIN CLEEMPUT Facility:[facility] Start: 05-26-2022 End: 05-26-2022 Office outpatient new 60 minutes Sanket Medina MD Work Phone: [facility] [place] Comment on above: Focal epilepsy (Prim romeo Dx); Complicated migraine; Reversible cerebrovascular vasoconstriction syndrome Start: 05-11-2022 ambulatory LORIN CLEEMPUT Facility:[facility] Start: 03-29-2021 End: 03-29-2021 Emergency department patient visit Priyanka Angelo MD Facility:[facility] Start: 01-04-2020 End: 01-04-2020 Patient encounter procedure JEANNIE GARCIA [facility] Start: 01-04-2020 End: 01-04-2020 Subsequent hospital visit by physician Jeannie Garcia Work Phone: [facility] [place] Start: 01-01-2020 End: 01-06-2020 [facility] Start: 01-01-2020 End: 01-05-2020 Subsequent hospital visit by physician Laura More19 Pat Scre[address] [facility] Comment on above: Pre-op testing Start: 12-15-2019 End: 12-18-2019 Evaluation and management of inpatient VIELKA LARSON IV [facility] Start: 12-15-2019 End: 12-18-2019 Evaluation and management of inpatient Tobias Bass Katherynyina Work Phone: [address] Onc/Med Surg Comment on above: Intussusception (HCC ) (Primary Dx); S/P laparoscopic surgery Start: 07-29-2019 End: 07-29-2019 Emergency department patient visit HACKBERRY Luke [facility] Start: 07-29-2019 End: 07-29-2019 Emergency department patient visit Tobias Moserahmet Work Phone: [facility] ED Comment on above: Evaluation for remov al of FLYNN drains (Primary Dx); Intractable episodic headache, unspecified headache type; Nausea; Yeast vaginitis Start: 07-23-2019 End: 07-24-2019 Emergency department patient visit VENICE HAILEY [facility] Start: 07-23-2019 End: 07-23-2019 Emergency department patient visit [place] Caballero MD Work Phone: [facility] ED Comment on above: Abscess, intra-abdom inal, postoperative (Primary Dx); Yeast infection Start: 07-23-2019 End: 07-23-2019 Emergency department patient visit TOBIAS HOGAN [facility] Start: 07-23-2019 End: 07-23-2019 Emergency department patient visit [facility] ED Comment on above: Intra-abdominal absc ess (HCC) (Primary Dx) Procedures Date Procedure Procedure Detail Performing Clinician Start: 01-04-2020 DISCHARGE PATIENT VENICE FISHERBER Start: 01-04-2020 Level iv surg pathol ogy gross&microscopic exam VENICE CABALLERO Start: 01-04-2020 BEDREST VENICE Weiss Start: 01-04-2020 Continuous pulse oximetry VENICE CABALLERO Start: 01-04-2020 ENCOURAGE DEEP BREAT RANDA AND COUGHING VENICE CABALLERO Start: 01-04-2020 INITIATE OXYGEN THER APY PROTOCOL VENICE CABALLERO Start: 01-04-2020 NOTIFY PHYSICIAN (SPECIFY) VENICE CABALLERO Start: 01-04-2020 NURSING COMMUNICATION Anny ROSA M CABALLERO Start: 01-04-2020 VITAL SIGNS VENICE Weiss Start: 01-01-2020 COVID-19 AMBULATORY SOBIA HOGAN Start: 01-01-2020 COVID-19 AMBULATORY Darren [place] Work Phone: Start: 12-18-2019 INITIATE OXYGEN THER APY PROTOCOL VENICE CABALLERO Start: 12-18-2019 DISCHARGE PATIENT VENICE CABALLERO Start: 12-18-2019 INTAKE AND OUTPUT VENICE CABALLERO Start: 12-17-2019 DIET GENERAL VENICE Weiss Start: 12-17-2019 MISCELLANEOUS NURSIN G CARE ORDER (SPECIFY) VENICE CABALLERO Start: 12-17-2019 TRANSFER PATIENT VENICE G JOI Start: 12-17-2019 End: 12-17-2019 LAPAROSCOPY EXPLORATORY Jeannie Mathis on Work Phone: Start: 12-17-2019 INITIATE OXYGEN THER APY PROTOCOL VENICE CABALLERO Start: 12-17-2019 INTAKE AND OUTPUT VENICE CABALLERO Start: 12-16-2019 INITIATE OXYGEN THER APY PROTOCOL VENICE CABALLERO Start: 12-16-2019 Radiologic exam abdo men 1 view VENICE CABALLERO Start: 12-16-2019 Comprehensive metabo lic panel VENICE CABALLERO Start: 12-16-2019 Radiologic exam abdo men 1 view Obdulio Harrison Work Phone: Start: 12-16-2019 BASIC METABOLIC PANE L W/ REFLEX TO MG FOR LOW K Malou Vidal Work Phone: Start: 12-16-2019 Blood count complete auto&auto difrntl wbc Malou Vidal Work Phone: Start: 12-16-2019 INTAKE AND OUTPUT VENICE CABALLERO Start: 12-15-2019 FULL CODE VENICELuke GOFF R Start: 12-15-2019 INTAKE AND OUTPUT VENICE CABALLERO Start: 12-15-2019 REASON FOR NO MECHAN ICAL VTE PROPHYLAXIS VENICE FISHERBER Start: 12-15-2019 INITIATE OXYGEN THER APY PROTOCOL VENICE CABALLERO Start: 12-15-2019 TOBACCO CESSATION EDUCATION VENICE FISHERBER Start: 12-15-2019 VITAL SIGNS VENICE PHILLIPBE R Start: 12-15-2019 COVID-19 VENICE FISHERBE R Start: 12-15-2019 PATIENT STATUS (FROM ED OR OR/PROCEDURAL) VENICE HAILEY Start: 12-15-2019 COVID-19 Trey roberts Work Phone: Start: 12-15-2019 Ct abdomen & pelvis w/contrast material VENICE CABALLERO Start: 12-15-2019 Ct abdomen & pelvis w/contrast material Trey Rubi Work Phone: Start: 12-15-2019 Assay of lipase VENICE ANN Start: 12-15-2019 Blood count complete auto&auto difrntl wbc VENICE HAILEY Start: 12-15-2019 Comprehensive metabo lic panel VENICE HAILEY Start: 12-15-2019 Assay of lipase Trey Rubi Work Phone: Start: 12-15-2019 Blood count complete auto&auto difrntl wbc Trey Rubi Work Phone: Start: 12-15-2019 Comprehensive metabo lic panel Trey Rubi Work Phone: Start: 07-29-2019 Drug screen quantita tive topiramate TOBIAS SOTOV Start: 07-29-2019 Quantitation drug no t elsewhere specified TOBIAS MOSERROV Start: 07-29-2019 ED NURSING COMMUNICATION TOBIAS MOSERROV Start: 07-29-2019 Radiologic exam ches t 2 views TOBIAS MOSERROV Start: 07-29-2019 Blood count complete auto&auto difrntl wbc TOBIAS MOSERROV Start: 07-29-2019 Gonadotropin chorion ic qualitative TOBIAS MOSERROV Start: 07-29-2019 Ecg routine ecg w/le ast 12 lds w/i&r TOBIAS MOSERROV Start: 07-29-2019 ED NURSING COMMUNICATION TOBIAS MOSERROV Start: 07-29-2019 Radiologic exam ches t 2 views Tobias Hogan DO Work Phone: Start: 07-29-2019 Gonadotropin chorion ic qualitative Tobias Sotov DO Work Phone: Start: 07-29-2019 Ecg routine ecg w/le ast 12 lds w/i&r Tobias Sotov DO Work Phone: Start: 07-24-2019 IP CONSULT TO [facility] VENICE CABALLERO Start: 07-23-2019 Ct abdomen & pelvis w/contrast material TOBIAS HOGAN Start: 07-23-2019 Assay of lipase AARON HOGAN Start: 07-23-2019 Blood count complete auto&auto difrntl wbc TOBIAS MOSERROV Start: 07-23-2019 Comprehensive metabo lic panel TOBIAS MOSERROV Start: 07-23-2019 Urinalysis microscopic only TOBIAS MOSERROV Start: 07-23-2019 Urnls dip stick/tabl et rgnt auto w/o microscopy TOBIAS MOSERROV Start: 07-23-2019 SALINE LOCK IV AARONE R ECHOV Start: 07-23-2019 Ct abdomen & pelvis w/contrast material Krishna SOLORZANO Work Phone: Start: 07-23-2019 Comprehensive metabo lic panel Krishna Jefferson PA Work Phone: Start: 07-23-2019 Urinalysis microscopic only Krishna SOLORZANO Work Phone: Start: 07-23-2019 Urnls dip stick/tabl et rgnt auto w/o microscopy Krishna SOLORZANO Work Phone: Plan of Treatment Date Care Activity Detail Author Start: 03-25-2024 Influenza vaccination INFLUENZA VACC INE (#1) [facility] Start: 05-05-2023 End: 05-05-2023 Patient encounter procedure 05/05/2023 2:30 PM EDT Office Visit [facility] [place] [address] [place] [address] Argentina Diane MD [address] [place] [address] [facility] [place] Start: 03-25-2023 COVID-19 VACCINE ( season) COVID-19 VACCINE ( season) [facility] Start: 03-25-2023 Influenza vaccination INFLUENZ A VACCINE (Season Ended) [facility] Start: 12-08-2022 End: 12-08-2022 Patient encounter procedure 12/08/2022 Office Visit Neurology Sanket Medina MD [address] [place] [address] [facility] [place] Start: 08-10-2022 End: 08-10-2022 Patient encounter procedure 08/10/2022 Office Visit Neurology Argentina Diane MD [address] [place] [address] [facility] [place] Start: 03-25-2022 Influenza vaccination INFLUENZA VACC INE (#1) [facility] Start: 03-25-2020 Influenza vaccination Flu vacc ine (Season Ended) [place], [place] Start: 03-25-2019 Influenza vaccination Flu vaccine (# 1) [facility] Phone: Start: 2009 Cervical cancer screen Cervical canc er screen [facility] Phone: Start: 2009 Screening for malign ant neoplasm of cervix [facility] Start: 10-25-2007 DTaP/Tdap/Td vaccine (1 - Tdap) DTaP/Tdap/Td vaccine (1 - Tdap) [place], [place] Start: 10-25-2007 Hepatitis B vaccination HEP B VACCINE (1 of 3 - 19+ 3-dose series) [facility] Start: 10-25-2007 Third diphtheria, tetanus and acellular pertussis (DTaP) vaccination TDAP (ADULT) [facility] Start: 2006 Tetanus vaccination TETANUS [facility] Start: 10-25-2003 HIV screen HIV screen [facility] [employer] Phone: Start: 10-25-2003 HIV screening [facility] Start: 10-25-1999 DTaP/Tdap/Td vaccine (1 - Tdap) DTaP/Tdap/Td vaccine (1 - Tdap) [facility] [employer] Phone: Start: 1989 Varicella vaccine (1 of 2 - 2-dose childhood series) Varicella vaccine (1 of 2 - 2-dose childhood series) [facility] Phone: Start: 04-25-1989 COVID-19 VACCINE (#1) COVID-19 VACCI NE (#1) [facility] Start: 1988 Hepatitis C screening HEPATITI S C VIRUS SCREENING [facility] Start: 1988 Tetanus vaccination TETANUS [facility] EKG 12 Lead EKG 12 Lead ECG STAT 07/29/2019 2:25 PM EST [facility] Phone: Initiate Oxygen Ther apy Protocol [place], [place] Comment on above: Daily until disconti nued starting 12/15/2019 Daily until disconti nued starting 01/04/2020 End: 07-29-2019 Levetiracetam Level Levetiracetam Level Lab STAT One Time for 1 Occurrences starting 07/29/2019 until 07/29/2019 [facility] Phone: Comment on above: One Time for 1 Occur rences starting 07/29/2019 until 07/29/2019 Levetiracetam Level Levetiraceta m Level Lab STAT 07/29/2019 3:45 PM EST [employer] Work Phone: Phase I & II - meter ed glucose Phase I & II - metered glucose Point of Care Testing Routine As Needed until discontinued starting 01/04/2020 [facility] [place] Comment on above: As Needed until disc ontinued starting 01/04/2020 Surgical Pathology Surgical Path ology Lab Routine Release Upon Ordering for 1 Occurrences starting 01/04/2020 [facility], [place] Comment on above: Release Upon Orderin g for 1 Occurrences starting 01/04/2020 End: 07-29-2019 Topiramate Level Topiramate Level Lab Routine One Time for 1 Occurrences starting 07/29/2019 until 07/29/2019 [employer] Work Phone: Comment on above: One Time for 1 Occur rences starting 07/29/2019 until 07/29/2019 Topiramate Level Topiramate Leve l Lab STAT 07/29/2019 3:45 PM [employer] Work Phone: Immunizations Immunization Date Immunization Notes Care Provider Fa [facility] 04-01-2023 influenza virus vaccine, unspecified formulation Jaquelin Schwab RPH Work Phone: [facility] 04-29-2021 influenza virus vaccine, unspecified formulation Sanket Medina MD Work Phone: [facility] Payers Date Payer Category Payer Unknown [id number] 2022 Medicaid [id number] 2021 Medicaid [facility] MEDICAID [id number] M[employer]ITY [facility]AN [facility] MEDICAID COMMUNITY PLAN [id number] 2021-Present [address] [place] [address] [id number] 2021 Private Health Insurance 2014 Private Health Insurance [facility] xxxxxxxxx 2014-Present [phone] [address] [place] [address] xxxxxxxxx [id number] 2014 Private Health Insurance [id number] 1988 Unknown [id number] [id number]. 173 1988 Unknown [id number] 2.16.840.1.567456.3.579.2. 175 1988 Unknown [id number] 2.16.840.1.244546.3.579.2. 175 1988 Unknown [id number] 2.16.840.1.181867.3.579.2. 196 1988 Unknown [id number] 2.16.840.1.960429.3.579.2. 594 1988 Unknown [id number] 2.16.840.1.742187.3.579.2. 594 1988 Unknown [id number] 2.16.840.1.877354.3.579.2. 196 1988 Unknown [id number] 2.16.840.1.351500.3.579.2. 196 1988 Unknown [id number] 2.16.840.1.193450.3.579.2. 196 1988 Unknown [id number] 2.16.840.1.077123.3.579.2. 196 1988 Unknown [id number] 2.16.840.1.548772.3.579.2. 196 1988 Unknown [id number] 2.16.840.1.660654.3.579.2. 196 1988 Unknown [id number] 2.16.840.1.338681.3.579.2. 196 1988 Unknown [id number] 2.16.840.1.776305.3.579.2. 196 1988 Unknown [id number] 2.16.840.1.065574.3.579.2. 196 1988 Unknown [id number] 2.16.840.1.221530.3.579.2. 196 1988 Unknown [id number] 2.16.840.1.745198.3.579.2. 196 Social History Date Type Detail Facility Start: 07-29-2019 End: 12-18-2019 Tobacco smoking status NMIS Never smoker [facility] Phone: Start: 12-18-2019 End: 05-26-2022 Alcohol intake Ex-drinker (finding) [facility] Phone: Start: 07-23-2019 History SDOH Alcohol Frequency 1 [facility] Phone: Start: 1988 Sex Assigned At Not on file M [employer] Phone: Exposure to SARS-CoV -2 (event) Unable to assess [employer] [place], [place] Start: 01-04-2020 Alcohol intake [facility]etime [facility]d hi (finding[facility] [place] Start: 1988 Sex Assigned At Female L [facility] Work Phone: Start: 12-29-2021 Tobacco smoking stat us NMIS Ex-smoker [facility] History of tobacco use Current smoker [facility] History of tobacco use Cigarette Smoker [facility] Start: 12-29-2021 Tobacco use and exposure Smokeless tobacco non-user [facility] Start: 05-26-2022 History of Social function [facility] Start: 05-26-2022 Tobacco use panel [facility] Start: 09-12-2022 Gender identity Identifies as female gender (finding) [facility] Goals Date Patient Goal Desired Activity /State Clinical Notes 07-23-2019 to 07-12-2023 Julio César Miriam - 04/22/2023 10:06 AM Heather Healy [facility],PharmD - 12/27/2022 2:48 PM Heather Healy RP,PharmD - 12/27/2022 2:48 PM EDTJulio César Pineda - 12/27/2022 2:48 PM EDTPatient Instructions Note Date & Type Note Facility 07-12-2023 Note Referral from Soniya Rivero MD to see 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 Phone number on file is not an active number and call could not be completed. Clinic phone number for dietitian appointment [phone] [facility] 06-27-2023 Note Attestation signed by Daryn Mckee [...] en Y gastric bypass in 2014 at [place], [place]. She lost about 150 lbs and [...] alarm. Reports Tuesday while working at the [facility] [facility] she got symptoms of hypoglycemia and [...] She has tri (more content not included)... [facility] 04-22-2023 History of Present illness Narrative [facility]: Call Information: Date and Time of Contact: 04/22/2023 10:08 AM Method of Contact: By Phone Contact Type: Prescriptions Contactor: [facility] OP Contactee: Patient Shipping/Pickup: Medicare B Refill?: No Medication Name: Ajovy 225 MG/1.5ML Delivery Method: Air Delivery Location: Home Signature Required: No Mailing/Pickup Date: 04/28/2023 Shipping Address: [address] [place] [address] Contact Info: Specialty (Ty) [phone] Lars [phone] East [phone] Greg [phone] Bedside Delivery ([facility]) [phone] documented in this encounter [facility] 03-07-2023 Note Attestation signed by Daryn Mckee [...] me. Daryn Mckee MD REASON FOR VISIT: Rcahid Mojica is a 32 y.o. female who is being seen today for follow-up of reactive hypoglycemia HPI: Patient reports she underwent Daniela en Y gastric bypass in 2014 at [place], [place]. She lost about 150 lbs and [...] alarm. Reports Tuesday while working at the [facility] she got symptoms of hypoglycemia and [...] 2. Reactive hypoglycemia: (more content not included)... [facility] 01-06-2023 Note Patient's number has been unreachable. Will try calling again. [facility] 12-27-2022 Note Attestation signed by Daryn Mckee [...] en Y gastric bypass in 2014 at [place], [place]. She lost about 150 lbs and [...] alarm. Reports Tuesday while working at the [facility] she got symptoms of hypoglycemia and [...] [facility] she states she had hyperglycemia followed [...] consider pharmacological treatment. Will start with acarbose. [facility] 12-27-2022 History of Present illness Narrative [facility]REACH [facility]: Call Information: Date and Time of Contact: 12/27/2022 2:50 PM Method of Contact: By Phone Contact Type: Prescriptions Contactor: [facility] Contactee: Patient Contact Outcome: Left message and Follow-up (Ajovy refill / MMO) Contact Info: Specialty (Ty) [phone] [facility] [phone] [facility] [phone] Greg [phone] Bedside Delivery ([facility]) [phone] [facility] OUTREACH ADVANCED: Call Information: Date and Time of Contact: 12/29/2022 12:55 PM Method of Contact: By Phone Contact Type: Prescriptions Contactor: [facility] Contactee: Patient Contact Outcome: Left message and Follow-up (Ajtanvir msot) Contact Info: Specialty (Ty) [phone] [facility] [phone] [facility] [phone] Greg [phone] Bedside Delivery ([facility]) [phone] [facility]REACH [facility]: Call Information: Date and Time of Contact: 12/29/2022 1:32 PM Method of Contact: By Phone Contact Type: Prescriptions Contactor: Patient Contactee: [facility] Shipping/Pickup: Medicare B Refill?: No Medication Name: Ajovy 225MG /1.5ML Delivery Method: Air Delivery Location: Home Signature Required: No Mailing/Pickup Date: 12/30/2022 Shipping Address: [address] [place] [address] Contact Info: Specialty (Ty) [phone] [facility] [phone] [facility] [phone] Greg [phone] Bedside Delivery ([facility]) [phone] [facility]REACH [facility]: Call Information: Date and Time of Contact: 12/29/2022 1:32 PM Contact Info: Specialty (Ty) [phone] [facility] [phone] [facility] [phone] Greg [phone] Bedside Delivery ([facility]) [phone] I performed phone call visit for Rachid [...] dose and frequency. Next dose due 01/03/23 / 2. Provider visits: Patient has seen their [...] occurred during today's visit: Name: Katarina Healy RPh, PharmD Date/Time: 12/29/2022 1:32 PM I performed phone [...] 12/29/2022 1:32 PM documented in this encounter [facility] 12-27-2022 Miscellaneous Notes Addended by: JAQUELIN SCHWAB on: 12/29/2022 01:41 PM Modules accepted: Orders documented in this encounter [facility] 12-27-2022 Note Addended by: JAQUELIN SCHWAB on: 12/29/2022 01:41 PM Modules accepted: Orders [facility] 12-27-2022 Note Addended by: JAQUELIN SCHWAB on: 12/29/2022 01:41 PM Modules accepted: Orders [facility] 12-27-2022 Note Addended by: JAQUELIN SCHWAB on: 12/29/2022 01:41 PM Modules accepted: Orders [facility] 12-27-2022 Note Addended by: JAQUELIN SCHWAB on: 12/29/2022 01:41 PM Modules accepted: Orders [facility] 12-23-2022 Note REASON FOR VISIT: Rachid Mojica [...] [facility] she states she had hyperglycemia followed [...] the morning., Disp: , 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 [facility] 05-26-2022 History of Present illness Narrative [facility] HISTORY OF PRESENT ILLNESS Rachid Mojica is a 31 y.o. right handed female with a history of chronic intractable migraines complicated with reversible vasoconstriction syndrome (RCVS), recent event of SAH sec to RCVS who presents to [facility] for establishing the care taking management of [...] Denies any insomnia or excessive sleepiness. 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 Sanket Medina MD Sheet Metal Duct Worker Supervisor of Neurology [facility] Department of Neurology - Epilepsy Division [address] - 7th floor [place] [address] . Total time to complete the visit : 60 minutes (record review, face to face encounter and documentation) . documented in this encounter [facility] 05-26-2022 Instructions Sanket Medina MD - 05/26/2022 11:00 AM EDT Topamax only half tab in morning and full tablet Headache clinic referral documented in this encounter [facility] 07-29-2019 Hospital Discharge instructions Tobias Hogan DO - 07/29/2019 Return to the Emergency Department immediately if you develop a fever, vomiting, worsening pain, worsening drainage from the FLYNN drain, or you have any other concerns. Please follow up with your surgeon in 1-2 days. The following attachments cannot be sent through Care Everywhere.Vaginal Yeast Infection (Mauritanian)documented in this encounter [facility] Phone: 07-23-2019 Hospital Discharge instructions Jose Watson [...] care or concern. documented in this encounter [facility] Phone: Evaluation note Diagnosis Intra-abdominal abscess (HCC)- Primary Peritoneal abscess documented in this encounter [facility] Phone: evaluation note* Diagnosis Abscess, intra-abdominal, postoperative- Primary Other postoperative infection Yeast infection Other and unspecified mycoses documented in this encounter [facility] Phone: evaluation note* Diagnosis Evaluation for removal of FLYNN drains- Primary Other specified aftercare following surgery Intractable episodic headache, unspecified headache type Nausea Nausea alone Yeast vaginitis Candidiasis of vulva and vagina documented in this encounter [facility] Phone: evaluation note* Diagnosis Focal epilepsy- Primary Localization-related (focal) (partial) epilepsy and epileptic syndromes with simple partial seizures, without mention of intractable epilepsy Complicated migraine Migraine with aura, without mention of intractable migraine without mention of status migrainosus Reversible cerebrovascular vasoconstriction syndrome Other ill-defined cerebrovascular disease [facility] Consultation (Urgent) - New Request Specialty Diagnoses / Procedures Referred By Clint mora Referred To Contact Neurology Diagnoses Complicated migraine Reversible cerebrovascular vasoconstriction syndrome Sanket Medina MD [address] [place] [address] Referral ID Status Reason Start Date Expiration Date V isits Requested Visits Authorized [id number] New Request 05/26/2022 06/20/2023 1 1 [facility] Discharge Instructions * Instructions* Obdulio Harrison DO [...] medications. documented in this encounter* Instructions* Aleyda Bagley RN - 01/04/2020 POST-ENDOSCOPY INSTRUCTIONS 1. ACTIVITY [...] questions, PLEASE call your doctor or the [facility] at documented in this encounter History of Present Illness * Sierra Santillan RN - 12/18/2019 3:25 PM EDT Patient given discharge instructions. All questions answered. Patient ambulated off unit for discharge. * Corina Juárez - 12/18/2019 12:19 PM EDT CLINICAL PHARMACY NOTE: MEDS TO BEDS [facility] Select Patient?: No Total # of Prescriptions Filled: 2 The following medications were delivered to the patient: roxicodone doyina Total # of Interventions Completed: 0 Time Spent (min): 0 Additional Documentation: * Obdulio Harrison, DO - 12/18/2019 7:13 AM EDT General [...] Garcia DO - 12/17/2019 11:06 AM EDT [address] ONC/MED SURG [facility] [address] Dept: [phone] Loc: [phone] Bariatrics: Asked to see patient today regarding [...] GJ ulcer approximately 2.5 months ago in [place]. Primary surgery done in [place]. BP (!) 95/46 Pulse 68 Temp 97.9 F (36.6 C) (Oral) Resp 18 Ht 5' 5 (1.651 m) Wt 147 lb (66.7 kg) SpO2 98% BMI 24.46 kg/m Abdom: Soft, non distended, fullness on the left, but some rebound from the right Labs: 12/16/2019 6:14 AM - Abner, Chris Incoming Lab Results From [facility] Value Ref Range & Units Status Collected Lab WBC 5.8 3.5 - 11.3 k/uL Final 12/16/2019 6:00 AM [facility] RBC 4.36 3.95 - 5.11 m/uL Final 12/16/2019 6:00 AM [facility] Hemoglobin 13.5 11.9 - 15.1 g/dL Final 12/16/2019 6:00 AM [facility] Hematocrit 41.6 36.3 - 47.1 % Final 12/16/2019 6:00 AM [facility] MCV 95.4 82.6 - 102.9 fL Final 12/16/2019 6:00 AM [facility] MCH 31.0 25.2 - 33.5 pg Final 12/16/2019 6:00 AM [facility] MCHC 32.5 28.4 - 34.8 g/dL Final 12/16/2019 6:00 AM [facility] RDW 12.2 11.8 - 14.4 % Final 12/16/2019 6:00 AM [facility] Platelets 154 138 - 453 k/uL Final 12/16/2019 6:00 AM [facility] MPV 10.6 8.1 - 13.5 fL Final 12/16/2019 6:00 AM [facility] NRBC Automated 0.0 0.0 per 100 WBC Final 12/16/2019 6:00 AM [facility] Differential Type NOT REPORTED Final 12/16/2019 6:00 AM [facility] WBC Morphology NOT REPORTED Final 12/16/2019 6:00 AM [facility] RBC Morphology NOT REPORTED Final 12/16/2019 6:00 AM [facility] Platelet Estimate NOT REPORTED Final 12/16/2019 6:00 AM [facility] Seg Neutrophils 44 36 - 65 % Final 12/16/2019 6:00 AM [facility] Lymphocytes 41 24 - 43 % Final 12/16/2019 6:00 AM [facility] Monocytes 9 3 - 12 % Final 12/16/2019 6:00 AM [facility] Eosinophils % 5High 1 - 4 % Final 12/16/2019 6:00 AM [facility] Basophils 1 0 - 2 % Final 12/16/2019 6:00 AM [facility] Immature Granulocytes 0 0 % Final 12/16/2019 6:00 AM [facility] Segs Absolute 12/16/2019 6:31 AM - Chris Levine Incoming Lab Results From [facility] Component Value Ref Range & Units Status Collected Lab Glucose 83 70 - 99 mg/dL Final 12/16/2019 6:00 AM [facility] BUN 9 6 - 20 mg/dL Final 12/16/2019 6:00 AM [facility] CREATININE 0.55 0.50 - 0.90 mg/dL Final 12/16/2019 6:00 AM [facility] Bun/Cre Ratio NOT REPORTED 9 - 20 Final 12/16/2019 6:00 AM [facility] Calcium 8.5Low 8.6 - 10.4 mg/dL Final 12/16/2019 6:00 AM [facility] Sodium 137 135 - 144 mmol/L Final 12/16/2019 6:00 AM [facility] Potassium 3.8 3.7 - [...] PM Abner, Mhpn Incoming Radiant Results From [employer] Rigoberto Orellana DO CC'd Results Radiation Dose [...] Urrutia MD General Surgery PGY2 Pager Number: [phone] * Kiya Cordero RN - 12/16/2019 4:[address] Urrutia ok to hep lock pt while she is [...] Pre-op testing Preoperative examination, unspecified Advance Directives Documents on File Type Date Recorded 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 Expl anation Advance Directives and Living Will 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 Latest Code Status on File Code Status Date Activated Date Inactivated Comments Full Code 12/15/2019 9:45 PM Latest Code Status on File Code Status Date Activated Date Inactivated Comments Full Code 12/15/2019 9:45 PM 12/18/2019 5:31 PM Documents on File Type Date Recorded 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 Expl 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 Advance Directives and 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 Will 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 Latest Code Status on File Code Status Date Activated Date Inactivated Comments Full Code 12/15/2019 9:45 PM 12/18/2019 5:31 PM Latest Code Status on File Code Status Date Activated Date Inactivated Comments Full Code 12/08/2021 7:55 PM Latest Code Status on File Code Status Date Activated Date Inactivated Comments Full Code 12/08/2021 7:55 PM Date Activated Date Inactivated Comments 12/08/2021 7:55 PM Summary Purpose Family History [...] 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) Jeannie Garcia, DO [address] [place] [address] [facility] Status Reason Specialty Diagnoses / Procedures Re ferred By Contact Referred To Contact Diagnoses Epigastric pain EPIGASTRIC PAIN Procedures HI OFFICE/OUTPT VISIT,PROCEDURE ONLY HI ESOPHAGOGASTRODUODENOSCOPY TRANSORAL DIAGNOSTIC EGD ESOPHAGOGASTRODUODENOSCOPY Jeannie Garcia, DO [address] [facility] [address] [place] [address] [facility] Reason Comments Emesis pt states she has be en vomiting since a surgery for a ruptured lining during a scope Reason Comments Abdominal Pain Reason Comments Post-op Problem pt states she has an infection in her drain tubes Reason Comments New Patient Specialty Diagnoses / Procedures Referred By Contac t Referred To Contact Neurology Diagnoses History of seizures Alissa Gibbs, WRISTER-[place]Y [address] [facility] [address] [place] [address] Referral ID Status Reason Start Date Expiration Date V isits Requested Visits Authorized [id number] New Request 12/29/2021 01/23/2023 1 1 INFORMATION SOURCE (unrecogn ized section and content) DATE CREATED AUTHOR 01/05/2020 [facility] Tyra dalton DATE CREATED AUTHOR AUTHOR'S ORGANIZ ATION 01/07/2020 [facility] DATE CREATED AUTHOR AUTHOR'S ORGANIZ ATION 03/30/2021 [facility] DATE CREATED AUTHOR AUTHOR'S ORGANIZ ATION 01/03/2023 [facility] DATE CREATED AUTHOR AUTHOR'S ORGANIZ ATION 11/12/2023 [facility] DATE CREATED AUTHOR AUTHOR'S ORGANIZ ATION 01/04/2024 [facility] Care Teams (unrecognized sec tion and content) Career Based Intervention Coordinator Relationship Specialty Start Date End Date Lorin Traylor CNP [address] [facility] [address] [place] [address] PCP - General Nurse Practitioner - Family 12/29/21 Career Based Intervention Coordinator Relationship Specialty Start Date End Date Cleemput, Lorin OSMANY [address] [facility] [address] [place] [address] PCP - General Nurse Practitioner - Family 12/29/21 Career Based Intervention Coordinator Relationship Specialty Start Date End Date Lorin Traylor CNP [address] [facility] [address] [place] [address] PCP - General Nurse Practitioner - [facility] 12/29/21 FOR RECORDS PERTAINING TO PATIENTS [...] BE BASED ON THE PRIMARY CLINICAL RECORDS. [facility] [employer] [facility]. provides no warranty or guarantee of the accuracy or completeness of information in this document.
--- NOTE | 2024-02-28 18:42 | ED.BACK1 ---
HPI HPI - Back Pain/Injury General Chief Complaint: Back Pain/Injury Stated Complaint: Back Pain Time Seen by Provider: 02/28/24 18:27 Source: patient Mode of arrival: walk-in Limitations: no limitations History of Present Illness HPI Narrative: Patient is a 33-year-old female who presents to the emergency department for a 3-day history of increasing neck pain, low back pain. Patient has a history of chronic neck and back pain. She was seen in this emergency department several months ago for the same. She denies any new mechanism of injury or trauma. She has no peripheral paresthesias, no pain radiation to the extremities. She denies any urinary symptoms. No headaches or visual changes. She has no concern for . She states she did not follow-up with any providers after her last visit to the emergency department. Related Data Home Medications ?Medication ?Instructions ?Recorded ?Confirmed amitriptyline 25 mg tablet 25 mg PO QDAY PRN nerve pain 03/15/23 02/28/24 cholecalciferol (vitamin D3) 10 2,000 unit PO QDAY 03/15/23 02/28/24 mcg (400 unit) tablet (Vitamin D3) dexmethylphenidate 20 mg 20 mg PO QDAY 03/15/23 02/28/24 capsule,extended release [id number] fremanezumab-vfrm 225 mg/1.5 mL 225 mg subcut .qmonth 03/15/23 07/11/23 subcutaneous syringe (Ajovy Syringe) levetiracetam 500 mg tablet 750 mg PO Q12H 03/15/23 02/28/24 Previous Rx's ?Medication ?Instructions ?Recorded amoxicillin 875 mg-potassium 1 tab PO Q12H #14 tabs 07/11/23 clavulanate 125 mg tablet methocarbamol 750 mg tablet 750 mg PO TID PRN pain #20 tabs 08/30/23 methylprednisolone 4 mg tablets in See Rx Instructions .Route 08/30/23 a dose pack (Medrol (Isaac)) .COMPLEX #21 ea orphenadrine citrate 100 mg 100 mg PO BID PRN muscle pain #14 02/28/24 tablet,extended release tabs prednisone 20 mg tablet See Rx Instructions .Route 02/28/24 .COMPLEX #12 tabs Allergies Allergy/AdvReac Type Severity Reaction Status Date / Time latex Allergy Intermediate Rash Verified 02/28/24 18:28 NSAIDS (Non-Steroidal AdvReac Intermediate Nausea Verified 02/28/24 18:28 Anti-Inflamma Opioid HPI Opioid Management Most Recent Opioid Data: Last Pain Scale 8 02/28/24 18:33 Last ED Pain Assessment 02/28/24 18:33 Ur Phencyclidine Scrn Negative (NEGATIVE) 03/15/23 09:25 Review of Systems ROS Constitutional Denies: fever or chills Ears, nose, mouth, and throat Denies: throat pain or nasal congestion Cardiovascular Denies: chest pain Respiratory Denies: shortness of breath Gastrointestinal Denies: abdominal pain, nausea or vomiting Genitourinary Denies: painful urination Musculoskeletal Reports: back pain and neck pain; Denies: extremity pain, extremity swelling or joint pain Integumentary/Breast Denies: rash Neurological Denies: headache Hematologic/Lymphatic Denies: easy bruising or easy bleeding PFSH [facility] Social History Smoking status: Never smoker Exam Narrative Exam Narrative: Gen.: Awake, alert, in no distress Head: Normocephalic, atraumatic ENT: Moist mucous membranes, diffuse tenderness of the posterior cervical spine and paraspinal muscles of the right trapezius area. No bony point tenderness of the cervical spine, no obvious deformity or step-off Respiratory: No respiratory distress Back: No bony point tenderness of the T-spine or L-spine with diffuse tenderness of the paraspinal muscles of the right low back. No obvious deformity or step-off. 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 Normal dorsiflexion and plantarflexion of the lower extremities. No decrease in sensation to the medial thighs Psych: Normal mood and affect Neuro: No focal neuro deficit Skin: Warm, dry, intact Constitutional Vital Signs, click to edit/add: Last Vital Signs Temp 98.6 F 02/28/24 18:23 Pulse 98 H 02/28/24 18:23 Resp 16 02/28/24 18:23 BP 122/76 02/28/24 18:23 Pulse Ox 98 02/28/24 18:23 O2 Del Method Room Air 02/28/24 18:23 Course Vital Signs Vital signs: Vital Signs Temperature 98.6 F 02/28/24 18:23 Pulse Rate 98 H 02/28/24 18:23 Respiratory Rate 16 02/28/24 18:23 Blood Pressure 122/76 02/28/24 18:23 Pulse Oximetry 98 02/28/24 18:23 Oxygen Delivery Method Room Air 02/28/24 18:23 Temperature 98.6 F 02/28/24 18:23 Pulse Rate 98 H 02/28/24 18:23 Respiratory Rate 16 02/28/24 18:23 Blood Pressure 122/76 02/28/24 18:23 Pulse Oximetry 98 02/28/24 18:23 Oxygen Delivery Method Room Air 02/28/24 18:23 MDM - Back Pain/Injury MDM Narrative Medical decision making narrative: Patient with no new mechanism of injury or trauma, no focal neurodeficits or new peripheral paresthesias. No indication for imaging at this time. She is medicated for symptoms and discharged home on steroids and muscle relaxants. She is apparently unable to take NSAIDs. She was strongly encouraged to follow-up with a specialist for additional imaging and intervention as needed. She was given a referral for local spinal surgery. Return to the ER if symptoms change or worsen SUPERVISED APC VISIT, PHYSICIAN ATTESTATION: Based on the medical record the care appears appropriate. ? Medical Records Attestation: I reviewed the patient's medical records. Discharge Plan Discharge Stand Alone Forms: Portal Instructions Chief Complaint: Back Pain/Injury Clinical Impression: Acute neck pain, Acute low back pain Patient Disposition: Home, Self-Care Time of Disposition Decision: 18:40 Condition: Good Prescriptions / Home Meds: New prednisone 20 mg tablet See Rx Instructions .ROUTE .COMPLEX Qty: 12 0RF Rx Instructions: 3 tabs daily for 2 days, then 2 tabs daily for 2 days, then 1 tab daily for 2 days orphenadrine citrate 100 mg tablet extended release 100 mg PO BID PRN (Reason: muscle pain) Qty: 14 0RF No Action amoxicillin-pot clavulanate 875-125 mg tablet 1 tab PO Q12H Qty: 14 0RF amitriptyline 25 mg tablet 25 mg PO QDAY PRN (Reason: nerve pain ) cholecalciferol (vitamin D3) [Vitamin D3] 10 mcg (400 unit) tablet 2,000 unit PO QDAY dexmethylphenidate 20 mg capsule,ER biphasic 50-50 20 mg PO QDAY Ajovy Syringe 225 mg/1.5 mL syringe 225 mg SUBCUT .qmonth levetiracetam 500 mg tablet 750 mg PO Q12H methocarbamol 750 mg tablet 750 mg PO TID PRN (Reason: pain) Qty: 20 0RF methylprednisolone [Medrol (Isaac)] 4 mg tablets,dose pack See Rx Instructions .ROUTE .COMPLEX Qty: 21 0RF Rx Instructions: Taper as directed Print Language: Palauan Instructions: Acute Low Back Pain (ED), Acute Neck Pain (ED) Referrals: Physician,Non-Staff, MD [Primary Care Provider] - 1 week Yola Jeronimo MD [Physician] - 1 week
[2024-02-28] MEDS: METHYLPREDNISOLONE SOD SUCC PF 125 MG/2 ML VIAL IM (18:47)
[2024-02-28] MEDS: METHOCARBAMOL 500 MG TABLET 1000 MG PO (18:48)
[2024-02-28] MEDS: HYDROCODONE/ACET 5-325 MG TABLET 1 TAB PO (18:48)
== END 2024-02-28 18:55 | disposition home or self-care (01) ==
PROVIDERS: Emergency Provider Student in an Organized Health Care Education/Training Program
DX: M54.50 Low back pain, unspecified (principal); M54.2 Cervicalgia
CPT/HCPCS: 96372; 99284; J2919

== ENCOUNTER 2024-06-24 14:18 | Emergency (ER) | payer OTHER, SELFPAY ==
[2024-06-24 14:21] VITALS: BP 142/111; PULSE 76; TEMP 36.8; O2SAT 96; BMI 28.3
--- OUTSIDE RECORDS SUMMARY | 2024-06-24 14:25 | XMS_ITS | CCD ---
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 #### C [id number] #### [address] [address] UA Mucus Present Abnormal Absent [facility] Comment on above: Performed By: #### C [id number] #### [address] [place] [address] UA RBC Quant 0 /HPF Normal 0-5 [facility] Comment on above: Performed By: #### C D:[id number] #### [address] [address] UA Squepi Cells Quant 6 /HPF Normal 0-29 [facility] Comment on above: Performed By: #### C D:[id number] #### [address] [address] UA WBC Quant 1 /HPF Normal 0-5 [facility] Comment on above: Performed By: #### C D:[id number] #### [address] [address] .eGFRon 03-29-2021 eGFR Non-AA >60 Normal >=60 [facility] Comment on above: Result Comment: Stag [...] years Performed By: #### E GFR #### [address] [address] eGFR AA >60 Normal >=60 [facility] Comment on above: Result Comment: See comment. Performed By: #### E GFR #### [address] [address] Basic Metabolic Profileon Creatinine [Mass/Vol] 0.90 mg/dL Normal 0.44-1.03 [facility] Comment on above: Performed By: #### C [id number] #### [address] [address] Urea nitrogen [Mass/Vol] 12 mg/dL Normal 8-26 [facility] Comment on above: Performed By: #### C D:[id number] #### [address] [place] [address] Urea nitrogen/Creatinine [Mass ratio] 13.3 mg/mg Normal 10.0-20.0 [facility] Comment on above: Performed By: #### C D:[id number] #### [address] [address] Anion gap [Moles/Vol] 13 mmol/L Normal 7-17 [facility] Comment on above: Performed By: #### C D:[id number] #### [address] [address] Calcium [Mass/Vol] 8.9 mg/dL Normal 8.5-10.3 [facility] Comment on above: Performed By: #### C D:[id number] #### [address] [address] Chloride [Moles/Vol] 108 mmol/L Normal 98-110 [facility] Comment on above: Performed By: #### C D:[id number] #### [address] [address] CO2 [Moles/Vol] 19 mmol/L Low 22-32 [facility] Comment on above: Performed By: #### C D:[id number] #### [address] [address] Glucose [Mass/Vol] 90 mg/dL Normal 70-99 [facility] Comment on above: Performed By: #### C D:[id number] #### [address] [address] Potassium [Moles/Vol] 3.6 mmol/L Normal 3.4-4.8 [facility] Comment on above: Performed By: #### C D:[id number] #### [address] [address] Sodium [Moles/Vol] 136 mmol/L Normal 133-142 [facility] Comment on above: Performed By: #### C D:[id number] #### [address] [address] CBC w/ Diffon 03-29-2021 Erythrocyte distribution width (RBC) [Ratio] 12.9 % Normal 11.6-14.8 [facility] Comment on above: Performed By: #### C BC #### [address] [address] Hematocrit (Bld) [Volume fraction] 44.4 % Normal 36.0-46.0 [facility] Comment on above: Performed By: #### C BC #### [address] [address] Hemoglobin (Bld) [Mass/Vol] 15.1 g/dL Normal 12.0-16.0 [facility] Comment on above: Performed By: #### C BC #### [address] [address] MCH (RBC) [Entitic mass] 31.8 pg Normal 27.0-35.0 [facility] Comment on above: Performed By: #### C BC #### [address] [address] MCHC 34.0 % Normal 31.0-37.0 [facility] Comment on above: Performed By: #### C BC #### [address] [address] MCV (RBC) [Entitic vol] 93.4 fL Normal 80.0-100.0 [facility] Comment on above: Performed By: #### C BC #### [address] [address] Platelet 190 x10*3/mcL Normal 150-350 [facility] Comment on above: Performed By: #### C BC #### [address] [address] Platelet mean volume (Bld) [Entitic vol] 8.7 fL Normal 6.7-10.6 [facility] Comment on above: Performed By: #### C BC #### [address] [address] RBC 4.75 x10*6/mcL Normal 3.80-5.20 [facility] Comment on above: Performed By: #### C BC #### [facility] [address] [place] [address] WBC 9.5 x10*3/mcL Normal 4.5-11.0 [facility] Comment on above: Performed By: #### C BC #### [address] [address] CRPon 03-29-2021 CRP [Mass/Vol] mg/L Normal 0.00-0.75 [facility] Comment on above: Result Comment: CRP measurement is useful for assessment of non-specific INFLAMMATORY RESPONSE to infection or injury AND is a sensitive MARKER of ACUTE INFLAMMATION including CARDIAC RISK ASSESSMENT. CARDIAC patients with elevated CRP are POTENTIALLY at a HIGHER RISK OF FUTURE CARDIAC EVENTS. Performed By: #### C RP #### [address] [address] [address] Abdomen Pelvis w/ IV Cont raston [...] partial bowel resection, hysterectomy. Radiation Dose Estimate: CTDI(mGy):0.753478 / / / kVp:120.265034 / mAs:0.967681 / / / DLP(mGy-cm):4.440161 Body Part: Abdomen CTDI(mGy):11.016640 / / / kVp:100.105112 / mAs:158.469056 / / / DLP(mGy-cm):553.7199 71Body Part: Abdomen Final Dictated by: Justino Whitman MD Dictated DT/TM: 03.29.2021 4:30 pm Signed by: Justino Whitman MD Signed (Electronic Signature): 03.29.2021 4:44 pm Transcribed DT/TM: 03.29.2021 4:42 pm (If Report Is Signed, Electronically Signed in Other Vendor System) Normal [facility] Diff Autoon 03-29-2021 Baso Absolute 0.0 x10*3/mcL Normal 0.0-0.2 [facility] Comment on above: Performed By: #### . Automated Diff #### [address] [address] Basophils/100 WBC (Bld) 0.5 % Normal 0.0-1.5 [facility] Comment on above: Performed By: #### . Automated Diff #### [address] [address] Eos Absolute 0.1 x10*3/mcL Normal 0.0-0.4 [facility] Comment on above: Performed By: #### . Automated Diff #### [address] [address] Eosinophils/100 WBC (Bld) 1.3 % Normal 0.0-5.4 [facility] Comment on above: Performed By: #### . Automated Diff #### [address] [address] Lymph Absolute 5.2 x10*3/mcL High 1.0-4.8 [facility] Comment on above: Performed By: #### . Automated Diff #### [address] [address] Lymphocytes/100 WBC (Bld) 54.8 % High 27.2-40.8 [facility] Comment on above: Performed By: #### . Automated Diff #### [address] [address] [place] Absolute 0.7 x10*3/mcL Normal 0.1-1.1 [facility] Comment on above: Performed By: #### . Automated Diff #### [address] [address] Monocytes/100 WBC (Bld) 7.3 % Normal 3.7-11.9 [facility] Comment on above: Performed By: #### . Automated Diff #### [address] [address] Neutro Absolute 3.4 x10*3/mcL Normal 1.8-7.7 [facility] Comment on above: Performed By: #### . Automated Diff #### [address] [address] Neutro Auto 36.1 % Low 47.2-70.8 [facility] Comment on above: Performed By: #### . Automated Diff #### [address] [address] ED Clinical Summaryon 2020 ED Clinical Summary [address] [id number] ED Clinical Summary Person Information Name: Mogle, Rachidharry Padron/[facility] Age: 30 Years : 1990 Sex: Female PCP: Marital Status: Phone: Race: White Ethnicity: Not or Language: Kenyan Visit Reason: Abdominal pain; Abdominal pain Acuity: 3 Enc Type: Emergency Med Service: Emergency Medicine Arrival: 03/29/2021 11:50:50 Discharge: 03/29/2021 18:01:00 LOS: 000 06:11 Checkin: 03/29/2021 11:50:50 Checkout: 03/29/2021 18:01:00 Dispo Type: Home or Self Care Address: [address] [place] [address] Provider Notes: Diagnosis: 1:RLQ abdominal pain; 2:Endometriosis; [...] range between ( 27.2 and 40.8 ) [place] Auto: 7.3 % -- Normal range between [...] range between ( 36.0 and 46.0 ) [place] Absolute: 0.7 x10 MCH: 31.8 pg -- [...] Visit Final Med List: New Medications [address] [place], [place] [id number], [phone] hydrocodone-acetamin ophen ([place] 5 mg-325 mg oral tablet) 1 Tabs Oral (given by mouth) every 6 hours as needed as needed for pain for 3 Days. Refills: 0. Last Dose: ibuprofen (ibuprofen 800 mg oral tablet) 1 Tabs Oral (given by mouth) 3 times a day as needed for pain. Refills: 0. Last Dose: (more content not included)... Normal [facility] ED Note-Physicianon 03-29-20 ED Note-Physician Chief [...] data available. ASA Documentation Medical Decision Making Aunrdea Lewis scribing for and in the presence [...] qualifying data available (MRI) Aundrea Lewis Normal [facility] Hep Func Panelon 03-29-2021 Albumin [Mass/Vol] 4.2 g/dL Normal 3.2-4.9 [facility] Comment on above: Performed By: #### L IVJONATHAN #### RUBALCAVA [address] [address] Alk Phos 48 IU/L Normal 32-91 [facility] Comment on above: Performed By: #### L IVER #### [address] [address] ALT [Catalytic activity/Vol] 25 U/L Normal 14-54 [facility] Comment on above: Performed By: #### L IVER #### [address] [address] AST [Catalytic activity/Vol] 26 U/L Normal 15-41 [facility] Comment on above: Performed By: #### L IVER #### [address] [address] Bili Direct 0.2 mg/dL Normal 0.1-0.5 [facility] Comment on above: Performed By: #### L IVER #### [address] [address] Bili Indirect 0.6 mg/dL Normal 0.0-1.0 [facility] Comment on above: Performed By: #### L IVER #### [address] [address] Bili Total 0.8 mg/dL Normal 0.3-1.2 [facility] Comment on above: Performed By: #### L IVER #### [address] [address] Protein [Mass/Vol] 7.3 g/dL Normal 6.5-8.1 [facility] Comment on above: Performed By: #### L IVER #### [address] [address] Lipaseon 03-29-2021 Lipase Lvl 29 IU/L Normal 22-51 [facility] Comment on above: Performed By: #### L IP #### [address] [address] UA w Culture if Indon 2020 Color (U) Yellow Normal [facility] Comment on above: Performed By: #### U CI #### [facility] [address] [place] [address] Ketones Ql (U) Negative Normal Negative [facility] Comment on above: Performed By: #### U CI #### [facility] [address] [place] [address], [place] [address] UA Blood Negative Normal Negative [facility] Comment on above: Performed By: #### U CI #### [facility] [address] [place] [address], [place] [address] UA Clarity Clear Normal [facility] Comment on above: Performed By: #### U CI #### [facility] [address] [place] [address], [place] [address] UA Glucose Normal Normal Negative [facility] Comment on above: Performed By: #### U CI #### [facility] [address] [place] [address], [place] [address] UA Leukocyte Esterase Negative Normal Negative [facility] Comment on above: Performed By: #### U CI #### [facility] [address] [place] [address], [place] [address] UA Nitrite Negative Normal Negative [facility] Comment on above: Performed By: #### U CI #### [facility] [address] [place] [address], [place] [address] UA pH 5.5 Normal 4.5 - 7.8 [facility] Comment on above: Performed By: #### U CI #### [facility] [address] [place] [address], [place] [address] UA Protein 10 mg/dL Normal Negative [facility] Comment on above: Performed By: #### U CI #### [facility] [address] [place] [address], [place] [address] UA Source Clean Catch Normal [facility] Comment on above: Performed By: #### U CI #### [facility] [address] [place] [address], [place] [address] UA Spec Grav 1.027 Normal 1.003-1.035 [facility] Comment on above: Performed By: #### U CI #### [address] [place] [address] UA Urobilinogen Normal Normal 0.2 - 1.0 [facility] Comment on above: Performed By: #### U CI #### [facility] [address] [place] [address] Urobilinogen (U) [Mass/Vol] Negative Normal Negative [facility] Comment on above: Performed By: #### U CI #### [facility] [address] [place] [address] US Transvaginal w/ Duplexon 03-29-2021 US Transvaginal [...] Electronically Signed in Other Vendor System) Normal [facility] Surgical Pathologyon 020 Surgical Pathology (NOTE) [...] SURGICAL PATHOLOGY CONSULTATION Patient Name: RACHID MOJICA [facility] Rec: [id number] Path Number: [id number] [facility] ANATOMIC PATHOLOGY [address] [place] [address]. [place], [place] [address] [facility] Comment on above: Performed By: #### P PPVS #### [address] [address] [employer]: John Yancey MD COVID-19 Ambulatoryon 2019 SARS-CoV-2, MILLICENT Not Detected Not Detected [place], [place] Comment on above: (NOTE) This test was developed and its performance characteristics determined by [employer]. This test has not been FDA cleared [...] detected) result in this assay. Performed At: [facility] [address] [employer] [facility], [place] [id number] Melly Butler MD Ph:[phone] [id number] 01-02-2020 SARS-CoV-2 Not Detected Normal Not Detected [facility] in [facility] Comment on above: Result Comment: (NOT E) This test was developed and its performance characteristics determined by [employer]. This test has not been FDA cleared [...] detected) result in this assay. Performed At: [facility] [address] [facility] [place] [id number] Melly Butler MD Ph:[phone] Performed By: #### C DP, CP, LIP #### [facility] [address] [place] [address] [employer]: Kd Page MD Basic Metab w/rfx MGon 12-15 (cont.) Normal [facility] Comment on above: Result Comment: Aver age GFR for 30-39 years old: 107 mL/min/1.73sq m Chronic Kidney Disease: <60 mL/min/1.73sq m Kidney failure: <15 mL/min/1.73sq m eGFR calculated using average adult body mass. Additional eGFR calculator available at: http://www.[employer].com/multiple_crcl_2012.htm Performed By: #### C TAMEKA, BMPX #### [address] [address] [employer]: John Yancey MD Anion gap [Moles/Vol] 13 mmol/L Normal 9-17 [facility] Comment on above: Performed By: #### C DP, BMPX #### [address] [address] [employer]: John Yancey MD Calcium [Mass/Vol] 8.5 mg/dL Low 8.6-10.4 [facility] Comment on above: Performed By: #### C DP, BMPX #### [address] [address] [employer]: John Yancey MD Chloride [Moles/Vol] 103 mmol/L Normal 98-107 [facility] Comment on above: Performed By: #### C DP, BMPX #### [address] [address] [employer]: John Yancey MD CO2 [Moles/Vol] 21 mmol/L Normal 20-31 [facility] Comment on above: Performed By: #### C DP, BMPX #### [address] [address] [employer]: John Yancey MD Creatinine [Mass/Vol] 0.55 mg/dL Normal 0.50-0.90 [facility] Comment on above: Performed By: #### C DP, BMPX #### [address] [address] [employer]: John Yancey MD GFR, Amer >60 Normal >60 [facility] Comment on above: Performed By: #### C DP, BMPX #### [address] [address] [employer]: John Yancey MD GFR,non Amer >60 Normal >60 [facility] Comment on above: Performed By: #### C DP, BMPX #### [address] [address] [employer]: John Yancey MD Glucose [Mass/Vol] 83 mg/dL Normal 70-99 [facility] Comment on above: Performed By: #### C DP, BMPX #### [address] [address] [employer]: John Yancey MD Potassium [Moles/Vol] 3.8 mmol/L Normal 3.7-5.3 [facility] Comment on above: Performed By: #### C DP, BMPX #### [address] [address] [employer]: John Yancey MD Sodium [Moles/Vol] 137 mmol/L Normal 135-144 [facility] Comment on above: Performed By: #### C DP, BMPX #### [address] [address] [employer]: John Yancey MD Urea nitrogen [Mass/Vol] 9 mg/dL Normal 6-20 [facility] Comment on above: Performed By: #### C DP, BMPX #### [address] [address] [employer]: John Yancey MD Staging: NOT REPORTED Normal [facility] Comment on above: Performed By: #### C DP, BMPX #### [address] [address] [employer]: John Yancey MD Bun/Cre Ratio NOT REPORTED Normal - [place], [place] Comment on above: Performed By: #### C DP, BMPX #### [address] [address] [employer]: John Yancey MD Basic Metabolic Panel w/ Ref devendra to [facility] 12-16-2019 Anion gap [Moles/Vol] 13 mmol/L 9 - 17 mmol/L [place] Calcium [Mass/Vol] 8.5 mg/dL Low 8.6 - 10. 4 mg/dL [place] Chloride [Moles/Vol] 103 mmol/L 98 - 10 7 mmol/L [place] CO2 [Moles/Vol] 21 mmol/L 20 - 31 mmol/L [place] Creatinine [Mass/Vol] 0.55 mg/dL 0.5 - 0.9 mg/dL [place] GFR >60 >60 mL/min [place], [place] GFR Non- >60 >60 mL/min [place] GFR/1.73 sq M predicted among non-blacks MDRD (S/P/Bld) [Vol rate/Area] [place], [place] Comment on above: Average GFR for 30-3 9 years old: 107 mL/min/1.73sq m Chronic Kidney Disease: <60 mL/min/1.73sq m Kidney failure: <15 mL/min/1.73sq m eGFR calculated using average adult body mass. Additional eGFR calculator available at: http://www.[employer]/multiple_crcl_2012.htm GFR/1.73 sq M predicted among non-blacks MDRD (S/P/Bld) [Vol rate/Area] NOT REPORTED [place], [place] Glucose [Mass/Vol] 83 mg/dL 70 - 99 mg/dL [place], [place] Interpretation and review of laboratory results Abnormal [place] Potassium [Moles/Vol] 3.8 mmol/L 3.7 - 5.3 mmol/L [place] Sodium [Moles/Vol] 137 mmol/L 135 - 144 mmol/L [place] Urea nitrogen [Mass/Vol] 9 mg/dL 6 - 20 mg/dL [place] CBC auto differentialon 05-2 -2019 Basophils (Bld) [#/Vol] 0.05 10*3/uL [place] Basophils/100 WBC (Bld) 1 % 0 - 2 % [place] Differential Type NOT REPORTED [place] Eosinophils (Bld) [#/Vol] 0.26 10*3/uL [place] Eosinophils/100 WBC (Bld) 5 % High 1 - 4 % [place] Erythrocyte distribution width (RBC) [Ratio] 12.2 % 11.8 - 14.4 % [place] Hematocrit (Bld) [Volume fraction] 41.6 % 36.3 - 47.1 % [place] Hemoglobin (Bld) [Mass/Vol] 13.5 g/dL 11.9 - 15.1 g/dL [place] Immature granulocytes (Bld) [#/Vol] 0 % 0 [place] Immature granulocytes (Bld) [#/Vol] 10*3/uL [place] Interpretation and review of laboratory results Abnormal [place] Lymphocytes (Bld) [#/Vol] 2.38 10*3/uL [place] Lymphocytes/100 WBC (Bld) 41 % 24 - 43 % [place] MCH (RBC) [Entitic mass] 31.0 pg 25.2 - 33.5 pg [place] MCHC (RBC) [Mass/Vol] 32.5 g/dL 28.4 - 34.8 g/dL [place] MCV (RBC) [Entitic vol] 95.4 fL 82.6 - 102.9 fL [place] Monocytes (Bld) [#/Vol] 0.51 10*3/uL [place] Monocytes/100 WBC (Bld) 9 % 3 - 12 % [place] Platelet mean volume (Bld) [Entitic vol] 10.6 fL 8.1 - 13.5 fL [place] Platelets (Bld) [#/Vol] 154 10*3/uL [place] RBC (Bld) [#/Vol] 4.36 10*6/uL 3.95 - 5.1 1 m/uL [place] Segmented neutrophils/100 WBC (Bld) 44 % 36 - 65 % [place] Segs Absolute 2.54 [place], [place] WBC (Bld) [#/Vol] 0.0 10*3/uL 0.0 per 10 0 WBC [place] WBC (Bld) [#/Vol] 5.8 10*3/uL [facility], [place] CBC with Diffon 12-16-2019 Abs. Basophil 0.05 k/uL Normal 0.00-0.20 [facility] Comment on above: Performed By: #### C DP, BMPX #### [address] [address] [employer]: John Yancey MD Abs.Imm.Granulocyte <0.03 Normal 0.00-0.30 [facility] Comment on above: Performed By: #### C DP, BMPX #### [address] [address] [employer]er: John Yancey MD Abs.Neutrophil (Seg) 2.54 k/uL Normal 1.50-8.10 [facility] Comment on above: Performed By: #### C DP, BMPX #### [address] [address] [employer]er: John Yancey MD Basophils/100 WBC (Bld) 1 % Normal 0-2 [facility] Comment on above: Performed By: #### C DP, BMPX #### [address] [address] [employer]er: John Yancey MD Eosinophils (Bld) [#/Vol] 0.26 10*3/uL Normal 0.00-0.44 [facility] Comment on above: Performed By: #### C DP, BMPX #### [address] [address] [employer]: John Yancey MD Eosinophils/100 WBC (Bld) 5 % High 1-4 [facility] Comment on above: Performed By: #### C DP, BMPX #### [address] [address] [employer]: John Yancey MD Erythrocyte distribution width (RBC) [Ratio] 12.2 % Normal 11.8-14.4 [facility] Comment on above: Performed By: #### C DP, BMPX #### [place] [address] [employer]er: John Yancey MD Hematocrit (Bld) [Volume fraction] 41.6 % Normal 36.3-47.1 [facility] Comment on above: Performed By: #### C DP, BMPX #### [place] [address] [employer]er: John Yancey MD Hemoglobin (Bld) [Mass/Vol] 13.5 g/dL Normal 11.9-15.1 [facility] Comment on above: Performed By: #### C DP, BMPX #### [place] [address] [employer]er: John Yancey MD Immature granulocytes (Bld) [#/Vol] 0 % Normal 0 [facility] Comment on above: Performed By: #### C DP, BMPX #### [place] [address] [employer]er: John Yancey MD Lymphocytes (Bld) [#/Vol] 2.38 10*3/uL Normal 1.10-3.70 [facility] Comment on above: Performed By: #### C DP, BMPX #### [place] [address] [employer]er: John Yancey MD Lymphocytes/100 WBC (Bld) 41 % Normal 24-43 [facility] Comment on above: Performed By: #### C DP, BMPX #### [place] [address] [employer]er: John Yancey MD MCH (RBC) [Entitic mass] 31.0 pg Normal 25.2-33.5 [facility] Comment on above: Performed By: #### C DP, BMPX #### [address] [address] [employer]er: John Yancey MD MCHC (RBC) [Mass/Vol] 32.5 g/dL Normal 28.4-34.8 [facility] Comment on above: Performed By: #### C DP, BMPX #### [address] [address] [employer]er: John Yancey MD MCV (RBC) [Entitic vol] 95.4 fL Normal 82.6-102.9 [facility] Comment on above: Performed By: #### C DP, BMPX #### [address] [address] [employer]er: John Yancey MD Monocytes (Bld) [#/Vol] 0.51 10*3/uL Normal 0.10-1.20 [facility] Comment on above: Performed By: #### C DP, BMPX #### [address] [address] [employer]: John Yancey MD Monocytes/100 WBC (Bld) 9 % Normal 3-12 [facility] [facility] Comment on above: Performed By: #### C DP, BMPX #### [address] [address] [employer]er: John Yancey MD Neutrophil (Seg) 44 % Normal 36-65 [facility] Comment on above: Performed By: #### C DP, BMPX #### [address] [address] [employer]er: John Yancey MD NRBC Automated 0.0 per [address] [facility] Comment on above: Performed By: #### C DP, BMPX #### [address] [address] [employer]er: John Yancey MD Platelet mean volume (Bld) [Entitic vol] 10.6 fL Normal 8.1-13.5 [facility] Comment on above: Performed By: #### C DP, BMPX #### [address] [address] [employer]er: John Yancey MD Platelets (Bld) [#/Vol] 154 10*3/uL Normal 138-453 [facility] Comment on above: Performed By: #### C DP, BMPX #### [address] [address] [employer] Graph[employer]er: John Yancey MD RBC (Bld) [#/Vol] 4.36 10*6/uL Normal 3.95-5.11 [facility] Comment on above: Performed By: #### C DP, BMPX #### [address] [address] [employer]er: John Yancey MD WBC (Bld) [#/Vol] 5.8 10*3/uL Normal 3.5-11.3 [facility] Comment on above: Performed By: #### C DP, BMPX #### [address] [address] [employer] Graph[employer]er: John Yancey MD Auto Diff Performed NOT REPORTED Normal [facility] Comment on above: Performed By: #### C DP, BMPX #### [address] [address] [employer] Graph[employer] Designer: John Yancey MD Platelets (Bld) [#/Vol] NOT REPORTED Normal [place], [place] Comment on above: Performed By: #### C DP, BMPX #### [address] [address] [employer] Graph[employer] Designer: John Yancey MD RBC morphology finding Nom (Bld) NOT REPORTED Normal [place], [place] Comment on above: Performed By: #### C DP, BMPX #### [address] [id number] [employer] Designer: John Yancey MD WBC Morphology NOT REPORTED Normal [place], [place] Comment on above: Performed By: #### C DP, BMPX #### [address] [id number] [employer] Graph[employer] Designer: John Yancey MD COVID-19on 12-16-2019 SARS-CoV-2 Not Detected Not Detected [place], [place] Comment on above: The specimen is NEGATIVE for SARS-CoV-2, the novel coronavirus associated with COVID-19. A negative result does not rule out COVID-19. This test has been authorized by the FDA under an Emergency Use Authorization (EUA) for use by authorized laboratories. Fact sheet for Healthcare Providers: https://www.fda.gov/media/870669/download Fact sheet for Patients: https://www.fda.gov/media/868919/download METHODOLOGY: RT-PCR SARS-CoV-2, PCR [place] SARS-CoV-2, Rapid [place], [place] Source .NASOPHARYNGEAL SWAB [place], [place] [id number] 12-16-2019 SARS-CoV-[address] [facility] Comment on above: Performed By: #### C OVID #### [address] [id number] [employer] Graph[employer] Designer: John Yancey MD SARS-CoV-2,Rapid Normal [facility] Comment on above: Performed By: #### C OVID #### [address] [id number] [employer] Designer: John Yancey MD SARS-CoV-[address] Normal NOTDET [facility] Comment on above: Result Comment: The specimen is NEGATIVE for SARS-CoV-2, the novel coronavirus associated with COVID-19. A negative result does not rule out COVID-19. This test has been authorized by the FDA under an Emergency Use Authorization (EUA) for use by authorized laboratories. Fact sheet for Healthcare Providers: https://www.fda.gov/media/472474/download Fact sheet for Patients: https://www.fda.gov/media/684832/download METHODOLOGY: RT-PCR Performed By: #### C OVID #### [facility] [address] [place] [address] [employer] Graph[employer] Designer: John Yancey MD XR ABDOMEN (KUB) (SINGLE [...] Vail Jr., DO 12/16/[address] [facility] EXAMINATION: ONE SUPINE XRAY VIEW(S) OF [...] region. Osseous structures demonstrate no acute findings. [facility], [place] No acute intra-abdominal process. Oral contrast is seen throughout the colon. [place], [place], Mhpn Incoming Radiant Results From [facility]/[employer] - 12/16/2019 7:26 AM EDT EXAMINATION: ONE [...] Oral contrast is seen throughout the colon. [place] CBC WITH AUTO DIFFERENTIALon 12-15-2019 Basophils (Bld) [#/Vol] 0.06 10*3/uL [place] Basophils/100 WBC (Bld) 1 % 0 - 2 % [place] Differential Type NOT REPORTED [place] Eosinophils (Bld) [#/Vol] 0.24 10*3/uL [place] Eosinophils/100 WBC (Bld) 4 % 1 - 4 % [place] Erythrocyte distribution width (RBC) [Ratio] 12.5 % 11.8 - 14.4 % [place] Hematocrit (Bld) [Volume fraction] 45.7 % 36.3 - 47.1 % [place] Hemoglobin (Bld) [Mass/Vol] 14.5 g/dL 11.9 - 15.1 g/dL [place] Immature granulocytes (Bld) [#/Vol] 0 % 0 [place] Immature granulocytes (Bld) [#/Vol] 10*3/uL [place] Lymphocytes (Bld) [#/Vol] 2.47 10*3/uL [place] Lymphocytes/100 WBC (Bld) 37 % 24 - 43 % [place] MCH (RBC) [Entitic mass] 30.4 pg 25.2 - 33.5 pg [place] MCHC (RBC) [Mass/Vol] 31.7 g/dL 28.4 - 34.8 g/dL [place] MCV (RBC) [Entitic vol] 95.8 fL 82.6 - 102.9 fL [place] Monocytes (Bld) [#/Vol] 0.52 10*3/uL [place] Monocytes/100 WBC (Bld) 8 % 3 - 12 % [place] Platelet mean volume (Bld) [Entitic vol] 10.8 fL 8.1 - 13.5 fL [place], [place] Platelets (Bld) [#/Vol] NOT REPORTED [place], [place] Platelets (Bld) [#/Vol] 176 10*3/uL [place] RBC (Bld) [#/Vol] 4.77 10*6/uL 3.95 - 5.1 1 m/uL [place] RBC morphology finding Nom (Bld) NOT REPORTED [place] Segmented neutrophils/100 WBC (Bld) 50 % 36 - 65 % [place] Segs Absolute 3.38 [place], [place] WBC (Bld) [#/Vol] 0.0 10*3/uL 0.0 per 10 0 WBC [place] WBC (Bld) [#/Vol] 6.7 10*3/uL [place] WBC Morphology NOT REPORTED [place], [place] CBC with Diffon 12-15-2019 Abs. Basophil 0.06 k/uL Normal 0.00-0.20 [facility] Comment on above: Performed By: #### C DP, JP, LIP #### [facility] [address] [place] [address] [employer] Graph[employer] Designer: John Yancey MD Abs.Imm.Granulocyte <0.03 Normal 0.00-0.30 [facility] Comment on above: Performed By: #### C DP, CP, LIP #### [address] [address] [employer] Graph[employer] Designer: John Yancey MD Abs.Neutrophil (Seg) 3.38 k/uL Normal 1.50-8.10 [facility] Comment on above: Performed By: #### C DP, CP, LIP #### [address] [address] [employer]elance Graphic Designer: John Yancey MD Basophils/100 WBC (Bld) 1 % Normal 0-2 [facility] Comment on above: Performed By: #### C DP, CP, LIP #### [address] [address] [employer] Graphic Designer: John Yancey MD Eosinophils (Bld) [#/Vol] 0.24 10*3/uL Normal 0.00-0.44 [facility] Comment on above: Performed By: #### C DP, CP, LIP #### [address] [address] [employer] Graph[employer] Designer: John Yancey MD Eosinophils/100 WBC (Bld) 4 % Normal 1-4 [facility] Comment on above: Performed By: #### C DP, CP, LIP #### [address] [address] [employer] Graph[employer] Designer: John Yancey MD Erythrocyte distribution width (RBC) [Ratio] 12.5 % Normal 11.8-14.4 [facility] Comment on above: Performed By: #### C DP, CP, LIP #### [address] [address] [employer]el[employer] Graph[employer] Designer: John Yancey MD Hematocrit (Bld) [Volume fraction] 45.7 % Normal 36.3-47.1 [facility] Comment on above: Performed By: #### C DP, CP, LIP #### [address] [address] [employer]el[employer] Graph[employer] Designer: John Yancey MD Hemoglobin (Bld) [Mass/Vol] 14.5 g/dL Normal 11.9-15.1 [facility] Comment on above: Performed By: #### C DP, CP, LIP #### [address] [address] [employer]el[employer] Graph[employer] Designer: John Yancey MD Immature granulocytes (Bld) [#/Vol] 0 % Normal 0 [facility] Comment on above: Performed By: #### C DP, CP, LIP #### [address] [address] [employer] Graph[employer] Designer: John Yancey MD Lymphocytes (Bld) [#/Vol] 2.47 10*3/uL Normal 1.10-3.70 [facility] Comment on above: Performed By: #### C DP, CP, LIP #### [address] [address] [employer] Graph[employer] Designer: John Yancey MD Lymphocytes/100 WBC (Bld) 37 % Normal 24-43 [facility] Comment on above: Performed By: #### C DP, CP, LIP #### [address] [address] [employer] Graph[employer] Designer: John Yancey MD MCH (RBC) [Entitic mass] 30.4 pg Normal 25.2-33.5 [facility] Comment on above: Performed By: #### C DP, CP, LIP #### [address] [address] [employer]elance Graphic Designer: John Yancey MD MCHC (RBC) [Mass/Vol] 31.7 g/dL Normal 28.4-34.8 [facility] Comment on above: Performed By: #### C DP, CP, LIP #### [address] [address] [employer]elance Graphic Designer: John Yancey MD MCV (RBC) [Entitic vol] 95.8 fL Normal 82.6-102.9 M [facility] Comment on above: Performed By: #### C DP, CP, LIP #### [address] [address] [employer] Graph[employer] Designer: John Yancey MD Monocytes (Bld) [#/Vol] 0.52 10*3/uL Normal 0.10-1.20 [facility] Comment on above: Performed By: #### C DP, CP, LIP #### [place] [address] [employer]elance Graphic Designer: John Yancey MD Monocytes/100 WBC (Bld) 8 % Normal 3-12 [facility] Comment on above: Performed By: #### C DP, CP, LIP #### [place] [address] [employer]elance Graphic Designer: John Yancey MD Neutrophil (Seg) 50 % Normal 36-65 [facility] Comment on above: Performed By: #### C DP, CP, LIP #### [address] [address] [employer]elance Graphic Designer: John Yancey MD NRBC Automated 0.0 per [address] [facility] Comment on above: Performed By: #### C DP, CP, LIP #### [place] [address] Freelance Graphic Designer: John Yancey MD Platelet mean volume (Bld) [Entitic vol] 10.8 fL Normal 8.1-13.5 [facility] Comment on above: Performed By: #### C DP, CP, LIP #### [address] [address] [employer]elance Graphic Designer: John Yancey MD Platelets (Bld) [#/Vol] 176 10*3/uL Normal 138-453 [facility] Comment on above: Performed By: #### C DP, CP, LIP #### [address] [address] [employer]elance Graphic Designer: John Yancey MD RBC (Bld) [#/Vol] 4.77 10*6/uL Normal 3.95-5.11 [facility] Comment on above: Performed By: #### C DP, CP, LIP #### [address] [address] [employer]elance Graphic Designer: John Yancey MD WBC (Bld) [#/Vol] 6.7 10*3/uL Normal 3.5-11.3 [facility] Comment on above: Performed By: #### C DP, CP, LIP #### [address] [address] [employer]elance Graphic Designer: John Yancey MD Auto Diff Performed NOT REPORTED Normal [facility] Comment on above: Performed By: #### C DP, CP, LIP #### [address] [address] [employer]elance Graphic Designer: John Yancey MD Platelets (Bld) [#/Vol] NOT REPORTED Normal [facility] Comment on above: Performed By: #### C DP, CP, LIP #### [address] [address] [employer]el[employer] Graphic Designer: John Yancey MD RBC morphology finding Nom (Bld) NOT REPORTED Normal [facility] Comment on above: Performed By: #### C DP, CP, LIP #### [address] [address] [employer]elance Graphic Designer: John Yancey MD WBC Morphology NOT REPORTED Normal [facility] Comment on above: Performed By: #### C DP, CP, LIP #### [address] [address] [employer]elance Graphic Designer: John Yancey MD CT ABDOMEN PELVIS W [...] Héctor Ramos MD 12/15/[address] [facility] CT ABDOMEN PELVIS W IV CONTR [...] Bones/Soft Tissues: No acute osseous abnormality identified. [place], [place] Long segment small bowel jejunal intussusception near the anastomosis. Fecalization in this area is noted consistent with stasis and there is mild upstream small bowel distension. [place], Mhpn Incoming Radiant Results From [facility] - 12/15/2019 6:56 PM EDT EXAMINATION: CT [...] there is mild upstream small bowel distension. [facility], [place] Comp Metabolic Profon 2019 (cont.) Normal [facility] Comment on above: Result Comment: Aver age GFR for 30-39 years old: 107 mL/min/1.73sq m Chronic Kidney Disease: <60 mL/min/1.73sq m Kidney failure: <15 mL/min/1.73sq m eGFR calculated using average adult body mass. Additional eGFR calculator available at: http://www.[employer]/multiple_crcl_2012.htm Performed By: #### C DP, CP, LIP #### [facility] [address] [place] [address] [employer]elance Graphic Designer: Jonh Yancey MD Albumin [Mass/Vol] 4.0 g/dL Normal 3.5-5.2 [facility] Comment on above: Performed By: #### C DP, CP, LIP #### [address] [address] [employer]elance Graphic Designer: John Yancey MD Albumin/Globulin [Mass ratio] 1.6 {ratio} Normal 1.0-2.5 [facility] Comment on above: Performed By: #### C DP, CP, LIP #### [address] [address] [employer]el[employer] Graphic Designer: John Yancey MD Alkaline Phos 66 U/L Normal 35-104 [facility] Comment on above: Performed By: #### C DP, CP, LIP #### [address] [address] [employer]elance Graphic Designer: John Yancey MD ALT [Catalytic activity/Vol] 23 U/L Normal 5-33 [facility] Comment on above: Performed By: #### C DP, CP, LIP #### [address] [address] [employer]elance Graph[employer] Designer: John Yancey MD Anion gap [Moles/Vol] 8 mmol/L Low 9-17 [facility] Comment on above: Performed By: #### C DP, CP, LIP #### [address] [address] [employer]elance Graphic Designer: John Yancey MD AST [Catalytic activity/Vol] 23 U/L Normal <32 [facility] Comment on above: Performed By: #### C DP, CP, LIP #### [address] [address] [employer]elance Graphic Designer: John Yancey MD Bilirubin Ql (U) 0.19 mg/dL Low 0.3-1.2 [facility] Comment on above: Performed By: #### C DP, CP, LIP #### [address] [address] [employer]elance Graphic Designer: John Yancey MD Calcium [Mass/Vol] 9.1 mg/dL Normal 8.6-10.4 [facility] Comment on above: Performed By: #### C DP, CP, LIP #### [address] [address] [employer]elance Graphic Designer: John Yancey MD Chloride [Moles/Vol] 107 mmol/L Normal 98-107 [facility] Comment on above: Performed By: #### C DP, CP, LIP #### [address] [address] [employer]elance Graphic Designer: John Yancey MD CO2 [Moles/Vol] 25 mmol/L Normal 20-31 [facility] Comment on above: Performed By: #### C DP, CP, LIP #### [address] [address] [employer]elance Graphic Designer: John Yancey MD Creatinine [Mass/Vol] 0.59 mg/dL Normal 0.50-0.90 [facility] Comment on above: Performed By: #### C DP, CP, LIP #### [address] [address] [employer]elance Graphic Designer: John Yancey MD GFR, Amer >60 Normal >60 [facility] Comment on above: Performed By: #### C DP, CP, LIP #### [address] [address] [employer]elance Graphic Designer: John Yancey MD GFR,non Amer >60 Normal >60 [facility] Comment on above: Performed By: #### C DP, CP, LIP #### [address] [address] [employer]elance Graphic Designer: John Yancey MD Glucose [Mass/Vol] 81 mg/dL Normal 70-99 [facility] Comment on above: Performed By: #### C DP, CP, LIP #### [address] [address] [employer]elance Graphic Designer: John Yancey MD Potassium [Moles/Vol] 4.6 mmol/L Normal 3.7-5.3 [facility] Comment on above: Performed By: #### C DP, CP, LIP #### [facility] [address] [place] [address] Freelance Graphic Designer: John Yancey MD Protein [Mass/Vol] 6.5 g/dL Normal 6.4-8.3 [facility] Comment on above: Performed By: #### C DP, CP, LIP #### [address] [address] [employer]elance Graphic Designer: John Yancey MD Sodium [Moles/Vol] 140 mmol/L Normal 135-144 [facility] Comment on above: Performed By: #### C DP, CP, LIP #### [address] [address] [employer]elance Graphic Designer: John Yancey MD Urea nitrogen [Mass/Vol] 9 mg/dL Normal 6-20 [facility] Comment on above: Performed By: #### C DP, CP, LIP #### [facility] [address] [place] [address] [employer]elance Graphic Designer: John Yancey MD BUN/CRE Ratio NOT REPORTED Normal -20 [facility] Comment on above: Performed By: #### C DP, CP, LIP #### [facility] [address] [place] [address] Freelance Graphic Designer: John Yancey MD Staging: NOT REPORTED Normal [facility] Comment on above: Performed By: #### C DP, CP, LIP #### [facility] [address] [place] [id number] Freelance Graphic Designer: John Yancey MD Comprehensive Metabolic Pane chica 12-15-2019 Albumin [Mass/Vol] 4 g/dL 3.5 - 5.2 g/dL [place] Albumin/Globulin [Mass ratio] 1.6 {ratio} [place] ALP [Catalytic activity/Vol] 66 U/L 35 - 104 U/L [place] ALT [Catalytic activity/Vol] 23 U/L 5 - 33 U/L [place] Anion gap [Moles/Vol] 8 mmol/L Low 9 - 17 mmol/L [place] AST [Catalytic activity/Vol] 23 U/L <32 [place] Bilirubin Ql (U) 0.19 mg/dL Low 0.3 - 1.2 mg/dL [place] Bun/Cre Ratio NOT REPORTED [place] Calcium [Mass/Vol] 9.1 mg/dL 8.6 - 10. 4 mg/dL [place] Chloride [Moles/Vol] 107 mmol/L 98 - 10 7 mmol/L [place] CO2 [Moles/Vol] 25 mmol/L 20 - 31 mmol/L [place] Creatinine [Mass/Vol] 0.59 mg/dL 0.5 - 0.9 mg/dL [place] GFR >60 >60 mL/min [place], [place] GFR Non- >60 >60 mL/min [place] GFR/1.73 sq M predicted among non-blacks MDRD (S/P/Bld) [Vol rate/Area] [place] Comment on above: Average GFR for 30-3 9 years old: 107 mL/min/1.73sq m Chronic Kidney Disease: <60 mL/min/1.73sq m Kidney failure: <15 mL/min/1.73sq m eGFR calculated using average adult body mass. Additional eGFR calculator available at: http://www.[employer]Melon Power/multiple_crcl_2012.htm GFR/1.73 sq M predicted among non-blacks MDRD (S/P/Bld) [Vol rate/Area] NOT REPORTED [place] Glucose [Mass/Vol] 81 mg/dL 70 - 99 mg/dL [place], [place] Interpretation and review of laboratory results Abnormal [place], [place] Potassium [Moles/Vol] 4.6 mmol/L 3.7 - 5.3 mmol/L [place] Protein [Mass/Vol] 6.5 g/dL 6.4 - 8.3 g/dL [place] Sodium [Moles/Vol] 140 mmol/L 135 - 144 mmol/L [place] Urea nitrogen [Mass/Vol] 9 mg/dL 6 - 20 mg/dL [place] LIPASEon 12-15-2019 Lipase [Catalytic activity/Vol] 20 U/L 13 - 60 U/L [place] Lipaseon 12-15-2019 Lipase [Catalytic activity/Vol] 20 U/L Normal - [facility] Comment on above: Performed By: #### C TAMEKA, JP, LIP #### [id number] [place], [place] [phone] [employer]elance Graphic Designer: John Yancey MD [id number] 12-15-2019 SARS-CoV-2 Source .NASOPHARYNGEAL SWAB Normal [facility] Comment on above: Performed By: #### C OVID #### [id number] [place], [place] [phone] Freelance Graphic Designer: John Yancey MD Topamaxon 07-31-2019 TOPA 2.7 ug/mL Low 5.0-20.0 [facility] Comment on above: Result Comment: (NOT E) INTERPRETIVE INFORMATION: Topiramate Therapeutic range: 5.0-20.0 ug/mL Toxic: Not well established Pharmacokinetics varies widely, particularly with co-medications, age, and/or compromised renal function. Adverse effects may include somnolence, fatigue, and dizziness. Performed by [facility], [address] [place] [address],[place] [id number] [email or web address], Nando Parrish MD, Lab. Director Performed By: #### C JP ENGLISH, LIP #### [facility] [address] [place] [address] Freelance Graphic Designer: Kd Page MD CBC Auto DifferentialOrdered By: Tobias Hogan on 07-29-2019 Absolute Eos # 0.21 [facility] Work Phone: Absolute Immature Granulocyte <0.03 [employer] Work Phone: Absolute Lymph # 2.30 [facility] Work Phone: Absolute [place] # 0.62 [employer] [facility] Work Phone: Basophils (Bld) [#/Vol] 0.06 10*3/uL [employer] Work Phone: Basophils/100 WBC (Bld) 1 % 0 - 2 % [facility] Work Phone: Differential Type NOT REPORTED [employer] Work Phone: Eosinophils/100 WBC (Bld) 3 % 1 - 4 % [facility] Phone: Erythrocyte distribution width (RBC) [Ratio] 12.8 % 11.8 - 14.4 % [employer] Phone: Hematocrit (Bld) [Volume fraction] 38.4 % 36.3 - 47.1 % [employer] Phone: Hemoglobin (Bld) [Mass/Vol] 12.3 g/dL 11.9 - 15.1 g/dL [employer] Phone: Immature granulocytes/100 WBC (Bld) 0 % 0 [employer] Phone: Lymphocytes/100 WBC (Bld) 29 % 24 - 43 % [employer] Work Phone: MCH (RBC) [Entitic mass] 30.4 pg 25.2 - 33.5 pg [employer] Work Phone: MCHC (RBC) [Mass/Vol] 32.0 g/dL 28.4 - 34.8 g/dL [employer] Work Phone: MCV (RBC) [Entitic vol] 94.8 fL 82.6 - 102.9 fL [employer] Phone: Monocytes/100 WBC (Bld) 8 % 3 - 12 % [facility] Work Phone: NRBC Automated 0.0 0.0 per 100 WBC [facility] Phone: Platelet Estimate NOT REPORTED [facility] Phone: Platelet mean volume (Bld) [Entitic vol] 11.0 fL 8.1 - 13.5 fL [facility] Phone: Platelets (Bld) [#/Vol] 220 10*3/uL [facility] Work Phone: RBC (Bld) [#/Vol] 4.05 10*6/uL 3.95 - 5.1 1 m/uL [facility] Work Phone: RBC morphology finding Nom (Bld) NOT REPORTED [facility] Work Phone: Segmented neutrophils/100 WBC (Bld) 59 % 36 - 65 % [facility] Work Phone: Segs Absolute 4.79 [facility] Work Phone: WBC (Bld) [#/Vol] 8.0 10*3/uL [facility] Work Phone: WBC Morphology NOT REPORTED [facility] Work Phone: CBC with Diffon 07-29-2019 Abs. Basophil 0.06 k/uL Normal 0.00-0.20 [facility] Comment on above: Performed By: #### C DP, HCG, CMPX #### [facility] [address] [place] [address] [employer] Designer: Kd Page MD Abs.Imm.Granulocyte <0.03 Normal 0.00-0.30 [facility] Comment on above: Performed By: #### C DP, HCG, CMPX #### [facility] [address] [place], [place] [address] [employer] Graphic Designer: Kd Page MD Abs.Neutrophil (Seg) 4.79 k/uL Normal 1.50-8.10 [facility] Comment on above: Performed By: #### C DP, HCG, CMPX #### [facility] [address] [place], [place] [address] [employer] Graphic Designer: Kd Page MD Basophils/100 WBC (Bld) 1 % Normal 0-2 [facility] Comment on above: Performed By: #### C DP, HCG, CMPX #### [facility] [address] [place], [place] [address] [employer] Graphic Designer: Kd Page MD Eosinophils (Bld) [#/Vol] 0.21 10*3/uL Normal 0.00-0.44 [facility] Comment on above: Performed By: #### C DP, HCG, CMPX #### [facility] [address] [place], [place] [address] [employer] Graph[employer] Designer: Kd Page MD Eosinophils/100 WBC (Bld) 3 % Normal 1-4 [facility] Comment on above: Performed By: #### C DP, HCG, CMPX #### [facility] [address] [place], [place] [address] [employer] Graph[employer] Designer: Kd Page MD Erythrocyte distribution width (RBC) [Ratio] 12.8 % Normal 11.8-14.4 [facility] Comment on above: Performed By: #### C DP, HCG, CMPX #### [facility] [address] [place], [facility] [employer]er: Kd Page MD Hematocrit (Bld) [Volume fraction] 38.4 % Normal 36.3-47.1 [facility] Comment on above: Performed By: #### C DP, HCG, CMPX #### [facility] [address] [place], [facility] [employer]er: Kd Page MD Hemoglobin (Bld) [Mass/Vol] 12.3 g/dL Normal 11.9-15.1 [facility] Comment on above: Performed By: #### C DP, HCG, CMPX #### [facility] [address] [place], [place] [address] [employer] Graph[employer] Designer: dK Page MD Immature granulocytes (Bld) [#/Vol] 0 % Normal 0 [facility] Comment on above: Performed By: #### C DP, HCG, CMPX #### [address] [place] [address] [employer] Graph[employer] Designer: Kd Page MD Lymphocytes (Bld) [#/Vol] 2.30 10*3/uL Normal 1.10-3.70 [facility] Comment on above: Performed By: #### C DP, HCG, CMPX #### [address] [place] [address] [employer]: Kd Page MD Lymphocytes/100 WBC (Bld) 29 % Normal 24-43 [facility] Comment on above: Performed By: #### C DP, HCG, CMPX #### [address] [place], [place] [address] [employer]: Kd Page MD MCH (RBC) [Entitic mass] 30.4 pg Normal 25.2-33.5 [facility] Comment on above: Performed By: #### C DP, HCG, CMPX #### [address] [place] [id number] [employer]er: Kd Page MD MCHC (RBC) [Mass/Vol] 32.0 g/dL Normal 28.4-34.8 [facility] Comment on above: Performed By: #### C DP, HCG, CMPX #### [facility] [address] [place], [place] [id number] [employer]: Kd Page MD MCV (RBC) [Entitic vol] 94.8 fL Normal 82.6-102.9 [facility] Comment on above: Performed By: #### C DP, HCG, CMPX #### [facility] [address] [place] [id number] [employer]: Kd Page MD Monocytes (Bld) [#/Vol] 0.62 10*3/uL Normal 0.10-1.20 [facility] Comment on above: Performed By: #### C DP, HCG, CMPX #### [address] [place], [place] [id number] [employer]: Kd Page MD Monocytes/100 WBC (Bld) 8 % Normal 3-12 [facility] Comment on above: Performed By: #### C DP, HCG, CMPX #### [address] [place], [place] 17[address]483 [employer]er: Kd Page MD Neutrophil (Seg) 59 % Normal 36-65 [facility] Comment on above: Performed By: #### C DP, HCG, CMPX #### [address] [place], [place] [address]83 [employer]er: Kd Page MD NRBC Automated 0.0 per 100 WBC Normal 0.0 [facility] Comment on above: Performed By: #### C DP, HCG, CMPX #### [facility] [address] [place], [place] [id number] [employer]: Kd Page MD Platelet mean volume (Bld) [Entitic vol] 11.0 fL Normal 8.1-13.5 [facility] Comment on above: Performed By: #### C DP, HCG, CMPX #### [facility] [address] [place], [place] [id number] [employer]: Kd Page MD Platelets (Bld) [#/Vol] 220 10*3/uL Normal 138-453 [facility] Comment on above: Performed By: #### C DP, HCG, CMPX #### [facility] [address] [place], [place] [id number] [employer]er: Kd Page MD RBC (Bld) [#/Vol] 4.05 10*6/uL Normal 3.95-5.11 [facility] Comment on above: Performed By: #### C DP, HCG, CMPX #### [facility] [address] [place], [place] 567[address]83 [employer]er: Kd Page MD WBC (Bld) [#/Vol] 8.0 10*3/uL Normal 3.5-11.3 [facility] Comment on above: Performed By: #### C DP, HCG, CMPX #### [facility] [address] [place] [address] [employer]er: Kd Page MD Auto Diff Performed NOT REPORTED Normal [facility] Comment on above: Performed By: #### C DP, HCG, CMPX #### [facility] [address] [place], [place] [address]83 [employer]er: Kd Page MD Platelets (Bld) [#/Vol] NOT REPORTED Normal [facility] Comment on above: Performed By: #### C DP, HCG, CMPX #### [facility] [address] [place], [place] [address]83 [employer]er: Kd Page MD RBC morphology finding Nom (d) NOT REPORTED Normal [facility] Comment on above: Performed By: #### C DP, HCG, CMPX #### [facility] [address] [place] [address] [employer]er: Kd Page MD WBC Morphology NOT REPORTED Normal [facility] Comment on above: Performed By: #### C DP, HCG, CMPX #### [facility] [address] [place] [address] [employer]er: Kd Page MD Comp Metabolic Pr/rfx MGon 0 07-29-2019 (cont.) Normal [facility] Comment on above: Result Comment: Aver age GFR for 30-39 years old: 107 mL/min/1.73sq m Chronic Kidney Disease: <60 mL/min/1.73sq m Kidney failure: <15 mL/min/1.73sq m eGFR calculated using average adult body mass. Additional eGFR calculator available at: http://www.[employer]/multiple_crcl_2011.htm Performed By: #### C DP, HCG, CMPX #### [facility] [address] [place] [address] [employer]er: Kd Page MD Albumin [Mass/Vol] 3.6 g/dL Normal 3.5-5.2 [facility] Comment on above: Performed By: #### C DP, HCG, CMPX #### [facility] [address] [place] [address] [employer]er: Kd Page MD Albumin/Globulin [Mass ratio] 1.1 {ratio} Normal 1.0-2.5 [facility] Comment on above: Performed By: #### C DP, HCG, CMPX #### [facility] [address] [place] [address] [employer]er: Kd Page MD Alkaline Phos 48 U/L Normal 35-104 [facility] Comment on above: Performed By: #### C DP, HCG, CMPX #### [facility] [address] [place] [address] [employer]er: Kd Page MD ALT [Catalytic activity/Vol] U/L Low 5-33 [facility] Comment on above: Performed By: #### C DP, HCG, CMPX #### [facility] [address] [place] [id number] [employer]er: Kd Page MD Anion gap [Moles/Vol] 11 mmol/L Normal 9-17 [facility] Comment on above: Performed By: #### C DP, HCG, CMPX #### [facility] [address] [place], [place] 6[address] [employer]er: Kd Page MD AST [Catalytic activity/Vol] 20 U/L Normal <32 [facility] Comment on above: Performed By: #### C DP, HCG, CMPX #### [facility] [address] [place], [place] 0[address] [employer]er: Kd Page MD Bilirubin Ql (U) 0.28 mg/dL Low 0.3-1.2 [facility] Comment on above: Performed By: #### C DP, HCG, CMPX #### [facility] [address] [place], [place] 9858683 [employer]er: Kd Page MD BUN/CRE Ratio 10 Normal 9-20 [facility] Comment on above: Performed By: #### C DP, HCG, CMPX #### [facility] [address] [place], [place] [address] [employer]er: Kd Page MD Calcium [Mass/Vol] 9.0 mg/dL Normal 8.6-10.4 [facility] Comment on above: Performed By: #### C DP, HCG, CMPX #### [facility] [address] [place], [place] 4654383 [employer]er: Kd Page MD Chloride [Moles/Vol] 103 mmol/L Normal 98-107 [facility] Comment on above: Performed By: #### C DP, HCG, CMPX #### [facility] [address] [place], [place] [address]83 [employer]er: Kd Page MD CO2 [Moles/Vol] 24 mmol/L Normal 20-31 [facility] Comment on above: Performed By: #### C DP, HCG, CMPX #### [facility] [address] [place] [address] [employer] Graph[employer]er: Kd Page MD Creatinine [Mass/Vol] 0.59 mg/dL Normal 0.50-0.90 [facility] Comment on above: Performed By: #### C DP, HCG, CMPX #### [facility] [address] [place], [place] [address]83 [employer]er: Kd Page MD GFR, Amer >60 Normal >60 [facility] Comment on above: Performed By: #### C DP, HCG, CMPX #### [facility] [address] [place], [place] [address]83 [employer]er: Kd Page MD GFR,non Amer >60 Normal >60 [facility] Comment on above: Performed By: #### C DP, HCG, CMPX #### [facility] [address] [place], [place] [id number] [employer]er: Kd Page MD Glucose [Mass/Vol] 85 mg/dL Normal 70-99 [facility] Comment on above: Performed By: #### C DP, HCG, CMPX #### [facility] [address] [place], [place] [address]83 [employer] Designer: Kd Page MD Potassium [Moles/Vol] 4.1 mmol/L Normal 3.7-5.3 [facility] Comment on above: Performed By: #### C DP, HCG, CMPX #### [facility] [address] [place] [address] [employer] Graph[employer] Designer: Kd Page MD Protein [Mass/Vol] 6.8 g/dL Normal 6.4-8.3 [facility] Comment on above: Performed By: #### C DP, HCG, CMPX #### [facility] [address] [place] [address] [employer]er: Kd Page MD Sodium [Moles/Vol] 138 mmol/L Normal 135-144 [facility] Comment on above: Performed By: #### C DP, HCG, CMPX #### [facility] [address] [place] [address] [employer] Graph[employer] Designer: Kd Page MD Staging: Normal [facility] Comment on above: Result Comment: Stag e 1: Some kidney damage normal GFR Stage 2: Mild kidney damage GFR 60-89 Stage 3: Moderate kidney damage GFR 30-59 Stage 4: Severe kidney damage GFR 15-29 Stage 5: Severe kidney damage GFR <15 ESRD - chronic treatment by dialysis or transplant Performed By: #### C DP, HCG, CMPX #### [facility] [address] [place] [address] [employer] Graph[employer] Designer: Kd Page MD Urea nitrogen [Mass/Vol] 6 mg/dL Normal 6-20 [facility] Comment on above: Performed By: #### C DP, HCG, CMPX #### [facility] [address] [place] [address] [employer] Graph[employer] Designer: Kd Page MD Comprehensive Metabolic Pane l w/ Reflex to MGOrdered By: Tobias Hogan on 07-29-2019 Albumin [Mass/Vol] 3.6 g/dL 3.5 - 5.2 g/dL [employer] Phone: Albumin/Globulin [Mass ratio] 1.1 {ratio} [employer] Phone: ALP [Catalytic activity/Vol] 48 U/L 35 - 104 U/L [employer] Phone: ALT [Catalytic activity/Vol] U/L Low 5 - 33 U/L [employer] Phone: Anion gap [Moles/Vol] 11 mmol/L 9 - 17 mmol/L [employer] Phone: AST [Catalytic activity/Vol] 20 U/L <32 [employer] Phone: Bilirubin [Mass/Vol] 0.28 mg/dL Low 0.3 - 1 .2 mg/dL [employer] Phone: Bun/Cre Ratio [employer] Work Phone: Calcium [Mass/Vol] 9.0 mg/dL 8.6 - 10. 4 mg/dL [employer] Phone: Chloride [Moles/Vol] 103 mmol/L 98 - 10 7 mmol/L [employer] Phone: CO2 [Moles/Vol] 24 mmol/L 20 - 31 mmol/L [employer] Phone: Creatinine [Mass/Vol] 0.59 mg/dL 0.5 - 0.9 mg/dL [employer] Phone: GFR >60 >60 mL/min [employer] Phone: GFR Comment [employer] Phone: Comment on above: Average GFR for 30-3 9 years old: 107 mL/min/1.73sq m Chronic Kidney Disease: <60 mL/min/1.73sq m Kidney failure: <15 mL/min/1.73sq m eGFR calculated using average adult body mass. Additional eGFR calculator available at: http://www.[employer]/multiple_crcl_2012.htm GFR Non- >60 >60 mL/min [employer] Phone: GFR Staging [employer] Phone: Comment on above: Stage 1: Some kidney damage normal GFR Stage 2: Mild kidney damage GFR 60-89 Stage 3: Moderate kidney damage GFR 30-59 Stage 4: Severe kidney damage GFR 15-29 Stage 5: Severe kidney damage GFR <15 ESRD - chronic treatment by dialysis or transplant Glucose [Mass/Vol] 85 mg/dL 70 - 99 mg/dL [employer] Phone: Interpretation and review of laboratory results Abnormal [employer] Phone: Potassium [Moles/Vol] 4.1 mmol/L 3.7 - 5.3 mmol/L [facility]: Protein [Mass/Vol] 6.8 g/dL 6.4 - 8.3 g/dL [facility] Phone: Sodium [Moles/Vol] 138 mmol/L 135 - 144 mmol/L [facility] Phone: Urea nitrogen [Mass/Vol] 6 mg/dL 6 - 20 mg/dL [facility] Phone: HCG Qualitative, SerumOrdere d By: Tobias Hogan on 07-29-2019 hCG Qual Negative NEGATIVE [facility] Phone: Comment on above: Specimens with hCG l evels near the threshold of the test (25 mIU/mL) may give a negative or indeterminate result. In such cases, another test should be performed with a new specimen in 48-72 hours. If early is suspected clinically in this setting, correlation with quantitative serum b-hCG level is suggested. [employer] has confirmed the use of plasma for this test. This has not been cleared or approved by the U.S. Food and Drug Administration. The FDA has determined that such clearance is not necessary. HCG Screen, Bloodon 07-29-19 20 HCG Qn Negative Normal NEG [facility] Comment on above: Result Comment: Spec imens with hCG levels near the threshold of the test (25 mIU/mL) may give a negative or indeterminate result. In such cases, another test should be performed with a new specimen in 48-72 hours. If early is suspected clinically in this setting, correlation with quantitative serum b-hCG level is suggested. [employer] has confirmed the use of plasma for this test. This has not been cleared or approved by the U.S. Food and Drug Administration. The FDA has determined that such clearance is not necessary. Performed By: #### C DP, HCG, CMPX #### [facility] [address] [place] [address] [employer]el[employer] Graphic Designer: Kd Page MD Keppraon 07-29-2019 KEPP 13 ug/mL Normal [facility] Comment on above: Result Comment: A reference [...] By: #### C DP, CP, LIP #### [facility] [address] [place] [address] Freelance Graphic Designer: Kd Page MD XR CHEST (2 VW)on [...] Héctor Kimble MD 07/29/19 Final result Normal [facility] XR CHEST STANDARD (2 VW)Orde red By: Tobias Hogan on 07-29-2019 Lateral left costophrenic pleural thickening with surgical drains in the left upper abdomen. [facility] Work Phone: EXAMINATION: TWO XRAY VIEWS OF [...] abdomen. Cholecystectomy clips. No subdiaphragmatic free air. [employer] Phone: Abner, Mhpn Incoming Radiant Results From [facility]/[employer] - 07/29/2019 3:11 PM EST EXAMINATION: TWO [...] surgical drains in the left upper abdomen. [employer] Phone: CBC Auto DifferentialOrdered By: Krishna Jefferson on 07-23-2019 [employer] # 0.27 [facility] Work Phone: Absolute Immature Granulocyte <0.03 [employer] Work Phone: Absolute Lymph # 2.78 [employer] [facility] Work Phone: Absolute [place] # 0.56 [facility] Work Phone: Basophils (Bld) [#/Vol] 0.06 10*3/uL [employer] Work Phone: Basophils/100 WBC (Bld) 1 % 0 - 2 % [facility] Work Phone: Differential Type NOT REPORTED [employer] Phone: Eosinophils/100 WBC (Bld) 3 % 1 - 4 % [employer] Phone: Erythrocyte distribution width (RBC) [Ratio] 13.1 % 11.8 - 14.4 % [employer] Phone: Hematocrit (Bld) [Volume fraction] 38.7 % 36.3 - 47.1 % [employer] Phone: Hemoglobin (Bld) [Mass/Vol] 12.4 g/dL 11.9 - 15.1 g/dL [employer] Phone: Immature granulocytes/100 WBC (Bld) 0 % 0 [employer] Phone: Lymphocytes/100 WBC (Bld) 33 % 24 - 43 % [employer] Phone: MCH (RBC) [Entitic mass] 30.9 pg 25.2 - 33.5 pg [employer] Phone: MCHC (RBC) [Mass/Vol] 32.0 g/dL 28.4 - 34.8 g/dL [employer] Phone: MCV (RBC) [Entitic vol] 96.5 fL 82.6 - 102.9 fL [employer] Phone: Monocytes/100 WBC (Bld) 7 % 3 - 12 % M [employer] Phone: NRBC Automated 0.0 0.0 per 100 WBC [employer] Phone: Platelet Estimate NOT REPORTED [employer] Phone: Platelet mean volume (Bld) [Entitic vol] 10.4 fL 8.1 - 13.5 fL [employer] Phone: Platelets (Bld) [#/Vol] 264 10*3/uL [employer] Phone: RBC (Bld) [#/Vol] 4.01 10*6/uL 3.95 - 5.1 1 m/uL [employer] Phone: RBC morphology finding Nom (Bld) NOT REPORTED [employer] Phone: Segmented neutrophils/100 WBC (Bld) 56 % 36 - 65 % [facility] Work Phone: Segs [facility] 4.66 [facility] Work Phone: WBC (Bld) [#/Vol] 8.3 10*3/uL [facility] Work Phone: WBC Morphology NOT REPORTED [facility] Work Phone: CBC with Diffon 07-23-2019 Abs. Basophil 0.06 k/uL Normal 0.00-0.20 [facility] Comment on above: Performed By: #### C DP, CP, LIP #### [address] [place] [id number] [employer] Graph[employer] Designer: Kd Page MD Abs.Imm.Granulocyte <0.03 Normal 0.00-0.30 [facility] Comment on above: Performed By: #### C DP, CP, LIP #### [address] [place] [address] [employer]elance Graphic Designer: Kd Page MD Abs.Neutrophil (Seg) 4.66 k/uL Normal 1.50-8.10 [facility] Comment on above: Performed By: #### C DP, CP, LIP #### [address] [place] [address] [employer] Graphic Designer: Kd Page MD Basophils/100 WBC (Bld) 1 % Normal 0-2 M [facility] Comment on above: Performed By: #### C DP, CP, LIP #### [address] [place] [address] [employer] Graph[employer]er: Kd Page MD Eosinophils (Bld) [#/Vol] 0.27 10*3/uL Normal 0.00-0.44 [facility] Comment on above: Performed By: #### C DP, CP, LIP #### [address] [place], [place] [id number] [employer] Graph[employer] Designer: Kd Page MD Eosinophils/100 WBC (Bld) 3 % Normal 1-4 [facility] Comment on above: Performed By: #### C DP, CP, LIP #### [facility] [address] [place], [place] [id number] [employer] Graph[employer] Designer: Kd Page MD Erythrocyte distribution width (RBC) [Ratio] 13.1 % Normal 11.8-14.4 [facility] Comment on above: Performed By: #### C DP, CP, LIP #### [facility] [address] [place], [place] [address] [employer] Graph[employer] Designer: Kd Page MD Hematocrit (Bld) [Volume fraction] 38.7 % Normal 36.3-47.1 [facility] Comment on above: Performed By: #### C DP, CP, LIP #### [address] [place] [id number] [employer] Graph[employer] Designer: Kd Page MD Hemoglobin (Bld) [Mass/Vol] 12.4 g/dL Normal 11.9-15.1 [facility] Comment on above: Performed By: #### C DP, CP, LIP #### [address] [place], [place] [address] [employer] Graphic Designer: Kd Page MD Immature granulocytes (Bld) [#/Vol] 0 % Normal 0 [facility] Comment on above: Performed By: #### C DP, CP, LIP #### [address] [place], [place] [address]68[address] [employer] Graph[employer] Designer: Kd Page MD Lymphocytes (Bld) [#/Vol] 2.78 10*3/uL Normal 1.10-3.70 [facility] Comment on above: Performed By: #### C DP, CP, LIP #### [facility] [address] [place], [place] [address] [employer] Graph[employer] Designer: Kd Page MD Lymphocytes/100 WBC (Bld) 33 % Normal 24-43 [facility] Comment on above: Performed By: #### C DP, CP, LIP #### [facility] [address] [place] [address] [employer] Graphic Designer: Kd Page MD MCH (RBC) [Entitic mass] 30.9 pg Normal 25.2-33.5 [facility] Comment on above: Performed By: #### C DP, CP, LIP #### [facility] [address] [place] [address] [employer] Graph[employer] Designer: Kd Page MD MCHC (RBC) [Mass/Vol] 32.0 g/dL Normal 28.4-34.8 [facility] Comment on above: Performed By: #### C DP, CP, LIP #### [address] [place] [address] [employer] Graph[employer] Designer: Kd Page MD MCV (RBC) [Entitic vol] 96.5 fL Normal 82.6-102.9 [facility] Comment on above: Performed By: #### C DP, CP, LIP #### [address] [place] [id number] [employer] Graph[employer] Designer: Kd Page MD Monocytes (Bld) [#/Vol] 0.56 10*3/uL Normal 0.10-1.20 [facility] Comment on above: Performed By: #### C DP, CP, LIP #### [address] [place] [id number] [employer] Graph[employer]er: Kd Page MD Monocytes/100 WBC (Bld) 7 % Normal 3-12 [facility] Comment on above: Performed By: #### C DP, CP, LIP #### [facility] [address] [place] [address] [employer] Graph[employer] Designer: Kd Page MD Neutrophil (Seg) 56 % Normal 36-65 [facility] Comment on above: Performed By: #### C DP, CP, LIP #### [facility] [address] [place], [place] [address] [employer] Graph[employer]er: Kd Page MD NRBC Automated 0.0 per 100 WBC Normal 0.0 [facility] Comment on above: Performed By: #### C DP, CP, LIP #### [facility] [address] [place], [facility] [employer] Graph[employer]er: Kd Page MD Platelet mean volume (Bld) [Entitic vol] 10.4 fL Normal 8.1-13.5 [facility] Comment on above: Performed By: #### C DP, CP, LIP #### [address] [place], [place] [address] [employer] Graph[employer]er: Kd Page MD Platelets (Bld) [#/Vol] 264 10*3/uL Normal 138-453 [facility] Comment on above: Performed By: #### C DP, CP, LIP #### [address] [place], [facility] [employer]er: Kd Page MD RBC (Bld) [#/Vol] 4.01 10*6/uL Normal 3.95-5.11 [facility] Comment on above: Performed By: #### C DP, CP, LIP #### [address] [place], [place] [address] [employer] Graph[employer]er: Kd Page MD WBC (Bld) [#/Vol] 8.3 10*3/uL Normal 3.5-11.3 [facility] Comment on above: Performed By: #### C DP, CP, LIP #### [address] [place], [facility] [employer]er: Kd Page MD Auto Diff Performed NOT REPORTED Normal [facility] Comment on above: Performed By: #### C DP, CP, LIP #### [address] [place], [facility] [employer]er: Kd Page MD Platelets (Bld) [#/Vol] NOT REPORTED Normal [facility] Comment on above: Performed By: #### C DP, CP, LIP #### [facility] [address] [place] [address] [employer]er: Kd Page MD RBC morphology finding Nom (Bld) NOT REPORTED Normal [facility] Comment on above: Performed By: #### C DP, CP, LIP #### [facility] [address] [place], [place] [id number] [employer]er: Kd Page MD WBC Morphology NOT REPORTED Normal [facility] Comment on above: Performed By: #### C DP, CP, LIP #### [address] [place], [place] [id number] [employer] Graph[employer] Designer: Kd Page MD CT ABDOMEN PELVIS W [...] Dusty Krueger MD 07/23/19 Final result Normal [facility] CT ABDOMEN PELVIS W IV CONTR ASTOrdered By: Krishna Jefferson on 07-23-2019 No bowel obstruction. No extravasation of oral contrast. Percutaneous drain within the left upper quadrant. Small perisplenic collection is suspected to be an abscess. Drain is seen adjacent to this but not directly within it. [employer] Phone: EXAMINATION: CT OF THE ABDOMEN AND [...] acute soft tissue abnormality. No osseous abnormality. [employer] Phone: Abner, Mhpn Incoming Radiant Results From [email or web address] 07/23/2019 6:14 PM EST EXAMINATION: CT OF [...] to this but not directly within it. [facility] Work Phone: Comp Metabolic Profon 2018 (cont.) Normal [facility] [facility] Comment on above: Result Comment: Aver age GFR for 30-39 years old: 107 mL/min/1.73sq m Chronic Kidney Disease: <60 mL/min/1.73sq m Kidney failure: <15 mL/min/1.73sq m eGFR calculated using average adult body mass. Additional eGFR calculator available at: http://www.[employer]iva.[employer]/multiple_crcl_2012.htm Performed By: #### C DP, JP, LIP #### [facility] [address] [place], [place] [id number] [employer]: Kd Page MD Albumin [Mass/Vol] 3.7 g/dL Normal 3.5-5.2 [facility] Comment on above: Performed By: #### C DP, CP, LIP #### [facility] [address] [place], [place] [id number] [employer]: Kd Page MD Albumin/Globulin [Mass ratio] 1.0 {ratio} Normal 1.0-2.5 [facility] Comment on above: Performed By: #### C DP, CP, LIP #### [facility] [address] [place], [place] [id number] [employer]: Kd Page MD Alkaline Phos 57 U/L Normal 35-104 [facility] Comment on above: Performed By: #### C DP, CP, LIP #### [facility] [address] [place], [place] [id number] [employer]: Kd Page MD ALT [Catalytic activity/Vol] 10 U/L Normal 5-33 [facility] Comment on above: Performed By: #### C DP, CP, LIP #### [facility] [address] [place], [place] [id number] [employer]: Kd Page MD Anion gap [Moles/Vol] 11 mmol/L Normal 9-17 [facility] Comment on above: Performed By: #### C DP, CP, LIP #### [facility] [address] [place], [place] [id number] [employer]er: Kd Page MD AST [Catalytic activity/Vol] 18 U/L Normal <32 [facility] Comment on above: Performed By: #### C DP, CP, LIP #### [facility] [address] [place], [place] [id number] [employer]er: Kd Page MD Bilirubin Ql (U) 0.20 mg/dL Low 0.3-1.2 [facility] Comment on above: Performed By: #### C DP, CP, LIP #### [facility] [address] [place], [place] [id number] [employer]: Kd Page MD BUN/CRE Ratio 17 Normal 9-20 [facility] Comment on above: Performed By: #### C DP, CP, LIP #### [facility] [address] [place], [facility] [employer]: Kd Page MD Calcium [Mass/Vol] 9.0 mg/dL Normal 8.6-10.4 [facility] Comment on above: Performed By: #### C DP, CP, LIP #### [facility] [address] [place], [facility] [employer]: Kd Page MD Chloride [Moles/Vol] 104 mmol/L Normal 98-107 [facility] Comment on above: Performed By: #### C DP, CP, LIP #### [facility] [address] [place], [place] [id number] [employer]er: Kd Page MD CO2 [Moles/Vol] 24 mmol/L Normal 20-31 [facility] Comment on above: Performed By: #### C DP, CP, LIP #### [facility] [address] [place], [place] [id number] [employer]er: Kd Page MD Creatinine [Mass/Vol] 0.48 mg/dL Low 0.50-0.90 [facility] Comment on above: Performed By: #### C DP, CP, LIP #### [facility] [address] [place], [place] [address] [employer]er: Kd Page MD GFR, Amer >60 Normal >60 [facility] Comment on above: Performed By: #### C DP, CP, LIP #### [facility] [address] [place], [place] 6[address]83 [employer]er: Kd Page MD GFR,non Amer >60 Normal >60 [facility] Comment on above: Performed By: #### C DP, CP, LIP #### [facility] [address] [place], [place] 46[address]183 [employer]: Kd Page MD Glucose [Mass/Vol] 93 mg/dL Normal 70-99 [facility] Comment on above: Performed By: #### C DP, CP, LIP #### [facility] [address] [place] [address] [employer]er: Kd Page MD Potassium [Moles/Vol] 3.6 mmol/L Low 3.7-5.3 [facility] Comment on above: Performed By: #### C DP, CP, LIP #### [address] [place] [address] [employer]er: Kd Page MD Protein [Mass/Vol] 7.4 g/dL Normal 6.4-8.3 [facility] Comment on above: Performed By: #### C DP CP, LIP #### [address] [place] [address] [employer]er: Kd Page MD Sodium [Moles/Vol] 139 mmol/L Normal 135-144 [facility] Comment on above: Performed By: #### C DP, CP, LIP #### [facility] [address] [place], [place] [id number] [employer]er: Kd Page MD Staging: Normal [facility] Comment on above: Result Comment: Stag e 1: Some kidney damage normal GFR Stage 2: Mild kidney damage GFR 60-89 Stage 3: Moderate kidney damage GFR 30-59 Stage 4: Severe kidney damage GFR 15-29 Stage 5: Severe kidney damage GFR <15 ESRD - chronic treatment by dialysis or transplant Performed By: #### C DP, CP, LIP #### [facility] [address] [place] [address] [employer]er: Kd Page MD Urea nitrogen [Mass/Vol] 8 mg/dL Normal 6-20 [facility] Comment on above: Performed By: #### C DP, CP, LIP #### [facility] [address] [place] [address] [employer]er: Kd Page MD Comprehensive Metabolic Pane lOrdered By: Krishna Jefferson on 07-23-2019 Albumin [Mass/Vol] 3.7 g/dL 3.5 - 5.2 g/dL [employer] Phone: Albumin/Globulin [Mass ratio] 1.0 {ratio} [employer] Phone: ALP [Catalytic activity/Vol] 57 U/L 35 - 104 U/L [employer] Phone: ALT [Catalytic activity/Vol] 10 U/L 5 - 33 U/L [employer] Phone: Anion gap [Moles/Vol] 11 mmol/L 9 - 17 mmol/L [employer] Phone: AST [Catalytic activity/Vol] 18 U/L <32 [employer] Phone: Bilirubin [Mass/Vol] 0.20 mg/dL Low 0.3 - 1 .2 mg/dL [employer] Phone: Bun/Cre Ratio 17 [facility] [employer] Work Phone: Calcium [Mass/Vol] 9.0 mg/dL 8.6 - 10. 4 mg/dL [employer] Phone: Chloride [Moles/Vol] 104 mmol/L 98 - 10 7 mmol/L [employer] Phone: CO2 [Moles/Vol] 24 mmol/L 20 - 31 mmol/L [employer] Phone: Creatinine [Mass/Vol] 0.48 mg/dL Low 0.5 - 0.9 mg/dL [employer] Phone: GFR >60 >60 mL/min [employer] Phone: GFR Comment [employer] Phone: Comment on above: Average GFR for 30-3 9 years old: 107 mL/min/1.73sq m Chronic Kidney Disease: <60 mL/min/1.73sq m Kidney failure: <15 mL/min/1.73sq m eGFR calculated using average adult body mass. Additional eGFR calculator available at: http://www.GridIron Systems/multiple_crcl_2012.htm GFR Non- >60 >60 mL/min [employer] Phone: GFR Staging [employer] Phone: Comment on above: Stage 1: Some kidney damage normal GFR Stage 2: Mild kidney damage GFR 60-89 Stage 3: Moderate kidney damage GFR 30-59 Stage 4: Severe kidney damage GFR 15-29 Stage 5: Severe kidney damage GFR <15 ESRD - chronic treatment by dialysis or transplant Glucose [Mass/Vol] 93 mg/dL 70 - 99 mg/dL [employer] Phone: Potassium [Moles/Vol] 3.6 mmol/L Low 3.7 - 5.3 mmol/L [facility] Phone: Protein [Mass/Vol] 7.4 g/dL 6.4 - 8.3 g/dL [facility] Phone: Sodium [Moles/Vol] 139 mmol/L 135 - 144 mmol/L [facility] Phone: Urea nitrogen [Mass/Vol] 8 mg/dL 6 - 20 mg/dL [facility] Phone: Lipaseon 07-23-2019 Lipase [Catalytic activity/Vol] 70 U/L High 13-60 [facility] Comment on above: Performed By: #### C DP, CP, LIP #### [facility] [address] [place] [address] [employer]er: Kd Page MD LipaseOrdered By: Krishna tatum on 07-23-2019 Lipase [Catalytic activity/Vol] 70 U/L High 13 - 60 U/L [employer] Phone: Microscopic UrinalysisOrdere d By: Krishna Jefferson on 07-23-2019 - [employer] Phone: Amorphous, UA NOT REPORTED None [facility] Work Phone: Bacteria, UA 1+ Abnormal None [employer] Work Phone: Casts UA NOT REPORTED /LPF [employer] Work Phone: Crystals UA 2 TO 5 CALCIUM OXALATE Abnormal None /HPF [employer] Work Phone: Epithelial Cells UA 2 TO 5 [employer] Work Phone: Interpretation and review of laboratory results Abnormal [employer] Phone: Mucus, UA 3+ Abnormal None [employer] Work Phone: Other Observations UA NOT REPORTED NOT REQ. M [facility] Work Phone: RBC, UA 0 TO 2 [employer] Work Phone: Renal Epithelial, Urine NOT REPORTED 0 /HPF [employer] Work Phone: Trichomonas, UA NOT REPORTED None [employer] Work Phone: WBC, UA 0 TO 2 [employer] Work Phone: Yeast, UA NOT REPORTED None [employer] Work Phone: No Panel InformationOrdered By: Krishna Jefferson on 07-23-2019 Interpretation and review of laboratory results Abnormal [employer] Phone: UA w/Reflex Cultureon 2018 Acetoacetic Acid,Ur TRACE Abnormal NEG [facility] Comment on above: Performed By: #### U LUCIA HARDWICK #### [facility] [address] [place], [place] [id number] [employer]er: Kd Page MD Bilirubin, SemiQt,Ur Negative Normal [facility] Comment on above: Performed By: #### U AX, UMICAO #### [facility] [address] [place], [place] 0587[address] [employer]er: Kd Page MD Color (U) YELLOW Normal YEL [facility] Comment on above: Performed By: #### U AX, UMICAO #### [facility] [address] [place], [place] [address] [employer]er: Kd Page MD Glucose Ql (U) Negative Normal NEG [facility] Comment on above: Performed By: #### U AX, UMICAO #### [facility] [address] [place], [place] 0395[address] [employer] Graph[employer]er: Kd Page MD Hemoglobin, Ur Negative Normal NEG [facility] Comment on above: Performed By: #### U AX, UMICAO #### [address] [place], [place] [address] [employer] Graphic Designer: Kd Page MD Leukocyte esterase Test strip Ql (U) Negative Normal [facility] Comment on above: Performed By: #### U AX, UMICAO #### [facility] [address] [place], [facility] [employer] Graph[employer]er: Kd Page MD Nitrite,Ur Negative [facility] Comment on above: Performed By: #### U AX, UMICAO #### [facility] [address] [place], [place] [address] [employer]er: Kd Page MD pH (U) 6.0 [pH] Normal 5.0-9.0 [facility] Comment on above: Performed By: #### U AX, UMICAO #### [facility] [address] [place] [address] [employer]el[employer] Graph[employer]er: Kd Page MD Protein Ql (U) Negative Normal NEG [facility] Comment on above: Performed By: #### U AX, UMICAO #### [facility] [address] [place] [address] [employer] Graphic Designer: Kd Page MD Specific gravity (U) [Rel density] >1.030 High 1.010-1.020 [facility] Comment on above: Performed By: #### U AX, UMICAO #### [facility] [address] [place] [address] [employer] Graph[employer]er: Kd Page MD Turbidity CLEAR Normal CLEAR [facility] Comment on above: Performed By: #### U AX, UMICAO #### [facility] [address] [place] [address] [place] [address] [employer]el[employer] Graphic Designer: Kd Page MD Urobilinogen,Ur Normal Normal NORM [facility] Comment on above: Performed By: #### U AX, UMICAO #### [facility] [address] [place] [address] [employer] Graph[employer]er: Kd Page MD Comment NOT REPORTED Normal [facility] Comment on above: Performed By: #### U AX, UMICAO #### [facility] [address] [place], [place] [address] [employer] Graph[employer] Designer: Kd Page MD Urinalysis Reflex to Culture Ordered By: Krishna Jefferson on 07-23-2019 Bilirubin Urine Negative NEGATIVE [facility] Work Phone: Color, UA YELLOW YELLOW [facility] Work Phone: Glucose, Ur Negative NEGATIVE [facility] Work Phone: Interpretation and review of laboratory results Abnormal [facility] Work Phone: Ketones Ql (U) TRACE Abnormal NEGATIVE [facility] Work Phone: Leukocyte esterase Test strip Ql (U) Negative NEGATIVE [facility] [employer] Work Phone: Nitrite, Urine Negative NEGATIVE [facility] Work Phone: pH, UA 6.0 [facility] [employer] Work Phone: Protein, UA Negative NEGATIVE [facility] Work Phone: Specific Harrell, UA >1.030 High [facility] Work Phone: Turbidity UA CLEAR CLEAR [facility] [employer] Work Phone: Urinalysis Comments NOT REPORTED [facility] [employer] Work Phone: Urine Hgb Negative NEGATIVE [facility] Work Phone: Urobilinogen, Urine Normal Normal [facility] Work Phone: Urinalysis,Microon 07-23 9 ----- Normal [facility] Comment on above: Performed By: #### U AX, UMICAO #### [facility] [address] [place] [address] [place] [address] [employer]el[employer] Graph[employer]er: Kd Page MD Bacteria LM.HPF (Urine sed) [#/Area] 1+ Abnormal [facility] Comment on above: Performed By: #### U AX, UMICAO #### [address] [place] [address] [employer]elance Graphic Designer: Kd Page MD Crystals LM Nom (Urine sed) 2 TO 5 Abnormal [facility] Comment on above: Result Comment: CALC IUM OXALATE Performed By: #### U AX, UMICAO #### [facility] [address] [place] [address] [employer] Graphic Designer: Kd Page MD Epithelial cells LM.HPF (Urine sed) [#/Area] 2 TO 5 Normal 0-25 [facility] Comment on above: Performed By: #### U AX, UMICAO #### [facility] [address] [place] [address] [place] [address] [employer]elance Graphic Designer: Kd Page MD Mucus Strands 3+ Abnormal NONE [facility] Comment on above: Performed By: #### U AX, UMICAO #### [facility] [address] [place] [id number] Freelance Graphic Designer: Kd Page MD RBC (U) [#/Vol] 0 TO 2 Normal 0-2 [facility] Comment on above: Performed By: #### U AX, UMICAO #### [facility] [address] [place] [address] [employer]elance Graphic Designer: Kd Page MD WBC (U) [#/Vol] 0 TO 2 Normal 0-5 [facility] Comment on above: Performed By: #### U AX, UMICAO #### [facility] [address] [place] [address] [employer] Graphic Designer: Kd Page MD Amorphous sediment LM Ql (Urine sed) NOT REPORTED Normal [facility] Comment on above: Performed By: #### U AX, UMICAO #### [address] [place] [address] [employer]el[employer] Graphic Designer: Kd Page MD Casts LM.LPF (Urine sed) [#/Area] NOT REPORTED Normal [facility] Comment on above: Performed By: #### U AX, UMICAO #### [facility] [address] [place] [address] [employer] Graphic Designer: Kd Page MD Epithelial, Renal NOT REPORTED Normal 0 [facility] Comment on above: Performed By: #### U AX, UMICAO #### [facility] [address] [place] [address] [employer] Graph[employer] Designer: Kd Page MD Other Observations NOT REPORTED Normal NREQ [facility] Comment on above: Performed By: #### U AX, UMICAO #### [facility] [address] [place] [address] [employer] Graphic Designer: Kd Page MD Trichomonas NOT REPORTED Normal NONE [facility] Comment on above: Performed By: #### U AX, UMVASUO #### [facility] [address] [place] [address] [employer]elance Graphic Designer: Kd Page MD Yeast LM Ql (Urine sed) NOT REPORTED Normal NONE [facility] Comment on above: Performed By: #### U AX, CAO #### [facility] [address] [place] [address] [employer] Graph[employer] Designer: Kd Page MD Vital Signs Date Time Vital Sign Value Performing Clinician Facility 05-10-2024 15:37-0400 Body height 165.1 cm Nona [place] DO Work Phone: [facility] 05-10-2024 15:37-0400 Body mass index (BMI) [Ratio] 29.35 kg/m2 Nona [place] DO Work Phone: [facility] 05-10-2024 15:37-0400 Body temperature 97.81 [degF] Nona [place] DO Work Phone: [facility] 05-10-2024 15:37-0400 Body weight 80.02 kg Nona [place] DO Work Phone: [facility] 05-10-2024 15:37-0400 Diastolic blood pressure 70 mm[Hg] Nona [place] DO Work Phone: [facility] 05-10-2024 15:37-0400 Heart rate 90 /min Nona [place] DO Work Phone: [facility] 05-10-2024 15:37-0400 SaO2% (BldA) [Mass fraction] 98 % Nona [place] DO Work Phone: [facility] 05-10-2024 15:37-0400 Systolic blood pressure 112 mm[Hg] Nona [place] DO Work Phone: [facility] 05-26-2022 10:37-0400 Body height 165.1 cm Sanket Medina MD Work Phone: [facility] 05-26-2022 10:37-0400 Body mass index (BMI) [Ratio] 23.48 kg/m2 Sanket Medina MD Work Phone: [facility] 05-26-2022 10:37-0400 Body temperature 98.01 [degF] Sanket Medina MD Work Phone: [facility] 05-26-2022 10:37-0400 Body weight 64 kg Sanket Medina MD Work Phone: [facility] 05-26-2022 10:37-0400 Diastolic blood pressure 62 mm[Hg] Sanket Medina MD Work Phone: [facility] 05-26-2022 10:37-0400 Heart rate 104 /min Sanket Medina MD Work Phone: [facility] 05-26-2022 10:37-0400 Systolic blood pressure 120 mm[Hg] Sanket Medina MD Work Phone: [facility] 01-04-2020 10:15-0400 Pulse (Heart Rate) 60 /min [place] 01-04-2020 10:15-0400 Pulse Oximetry 97 % [facility] [place] 01-04-2020 10:10-0400 BP Diastolic 61 mm[facility]Hg[facility] [place] 01-04-2020 10:10-0400 BP Systolic 101 mm[Hg] [facility] [place] 01-04-2020 10:10-0400 Respiratory Rate 14 /min [place] 01-04-2020 09:45-0400 Body Temperature 98.2 [degF] Jeannie [place], [place] 01-04-2020 08:40-0400 BMI (Body Mass Index) 23.82 kg/m2 [place] 01-04-2020 08:40-0400 Body weight 66.95 kg [facility] [place] 01-04-2020 08:40-0400 Height 167.6 cm [facility] [place] 12-18-2019 08:54-0400 Body Temperature 98.1 [degF] [facility] [place] 12-18-2019 08:54-0400 BP Diastolic 59 mm[Hg] [facility] [place] 12-18-2019 08:54-0400 BP Systolic 99 mm[Hg] Tobias [facility] [place] 12-18-2019 08:54-0400 Pulse (Heart Rate) 86 /min Tobias [facility] 12-18-2019 08:54-0400 Pulse Oximetry 98 % Tobias [facility] [place] 12-18-2019 08:54-0400 Respiratory Rate 16 /min Tobias [facility] [place] 12-15-2019 22:00-0400 BMI (Body Mass Index) 24.46 kg/m2 Tobias [facility] [place] 12-15-2019 22:00-0400 Body weight 66.68 kg [facility]ias [facility] [place] 12-15-2019 22:00-0400 Height 165.1 cm [facility]ias [facility] [place] 07-29-2019 16:39-0500 Respiratory rate 16 /min Tobias [employer] Work Phone: [employer] Work Phone: 07-29-2019 16:25-0500 SaO2% (BldA) [Mass fraction] 100 % Tobias Moserrov [employer] Work Phone: [employer] Work Phone: 07-29-2019 16:21-0500 Diastolic blood pressure 78 mm[Hg] Tobias Moserrov DO Work Phone: [employer] Work Phone: 07-29-2019 16:21-0500 Systolic blood pressure 114 mm[Hg] Tobias Hogan DO Work Phone: [employer] Work Phone: 07-29-2019 14:55-0500 Heart rate 66 /min Tobias Hogan DO Work Phone: [employer] Work Phone: 07-29-2019 13:05-0500 Body mass index (BMI) [Ratio] 19.64 kg/m2 Tobias Hogan DO Work Phone: [employer] Work Phone: 07-29-2019 13:05-0500 Body temperature 98.29 [degF] Tobias Hogan DO Work Phone: [employer] Work Phone: 07-29-2019 13:05-0500 Body weight 53.52 kg Tobias Hogan DO Work Phone: [employer] Work Phone: 07-23-2019 21:40-0500 Body height 165.1 cm Venice Caballero MD Work Phone: [employer] Work Phone: 07-23-2019 21:40-0500 Body mass index (BMI) [Ratio] 19.14 kg/m2 Venice Caballero MD Work Phone: [employer] Work Phone: 07-23-2019 21:40-0500 Body temperature 98.6 [degF] Venice Caballero MD Work Phone: [employer] Work Phone: 07-23-2019 21:40-0500 Body weight 52.16 kg Venice Caballero MD Work Phone: [employer] Work Phone: 07-23-2019 21:40-0500 Diastolic blood pressure 63 mm[Hg] Venice Caballero MD Work Phone: [employer] Work Phone: 07-23-2019 21:40-0500 Heart rate 85 /min Venice Caballero MD Work Phone: [employer] Phone: 07-23-2019 21:40-0500 Respiratory rate 18 /min Venice Caballero MD Work Phone: [employer] Work Phone: 07-23-2019 21:40-0500 SaO2% (BldA) [Mass fraction] 99 % Venice Caballero MD Work Phone: [employer] Phone: 07-23-2019 21:40-0500 Systolic blood pressure 103 mm[Hg] Venice Caballero MD Work Phone: [employer] Phone: 07-23-2019 20:09-0500 Diastolic blood pressure 58 mm[Hg] [employer] Phone: 07-23-2019 20:09-0500 Heart rate 77 /min [employer] Phone: 07-23-2019 20:09-0500 SaO2% (BldA) [Mass fraction] 99 % [employer] Phone: 07-23-2019 20:09-0500 Systolic blood pressure 105 mm[Hg] [employer] Phone: 07-23-2019 19:06-0500 Body temperature 97.7 [degF] [employer] Phone: 07-23-2019 13:46-0500 Body weight 52.16 kg [employer] Phone: 07-23-2019 13:46-0500 Respiratory rate 18 /min [employer] Phone: Encounters Encounter Date Encounter Type Care Provider Facility Start: 06-17-2024 End: 06-18-2024 Refill Nona Landry DO Work Phone: [phone] Comment on above: Attention deficit hy peractivity disorder (ADHD), unspecified ADHD type (CMS/HCC) Start: 06-10-2024 End: 06-11-2024 Refill Nona L [place] DO Work Phone: [facility] 230 Comment on above: Attention deficit hy peractivity disorder (ADHD), unspecified ADHD type (CMS/HCC) Start: 06-08-2024 End: 06-08-2024 Orders Only Nona L [place] DO Work Phone: [facility] 230 Comment on above: Type 2 diabetes rachel itus with hypoglycemia without coma, without long-term current use of insulin (CMS/HCC); Dumping syndrome Start: 06-07-2024 End: 06-07-2024 ambulatory Anson Patiño Facility:[facility] Start: 05-10-2024 End: 05-10-2024 Office outpatient visit 25 minutes Nona L [place] DO Work Phone: [facility] 230 Comment on above: Type 2 diabetes rachel itus with hypoglycemia without coma, without long-term current use of insulin (CMS/HCC) (Primary Dx); Reactive hypoglycemia; Dumping syndrome; Attention deficit hyperactivity disorder (ADHD), unspecified ADHD type (CMS/HCC); Mild episode of recurrent major depressive disorder (HCC) (CMS/HCC) Start: 05-10-2024 End: 05-10-2024 ambulatory NONA L CUTLER Not Available Start: 05-10-2024 End: 05-10-2024 Bamboo flowsheet Nona L [place] DO [facility]: [facility] Start: 05-10-2024 End: 05-10-2024 Bamboo flowsheet Nona L [place] DO Work Phone: [facility] 230 Start: 05-08-2024 End: 05-08-2024 Refill Nona L [place] DO [facility]: [facility] Comment on above: Attention deficit hy peractivity disorder (ADHD), unspecified ADHD type (CMS/HCC) (Primary Dx) Start: 04-05-2024 End: 04-05-2024 ambulatory Anson Patiño Facility:[facility] Start: 04-02-2024 End: 04-02-2024 ambulatory NONA LANDRY Not Available Start: 03-29-2024 ambulatory Anson Yi B undy DO Facility:[facility] Start: 03-13-2024 End: 03-13-2024 ambulatory MARISA BOWERS Not Available Start: 01-03-2024 End: 01-03-2024 ambulatory Anson Kd Haroon DO Facility:[facility] Start: 12-13-2023 ambulatory Anson Yi B undy DO Facility:[facility] Start: 09-23-2023 End: 09-23-2023 ambulatory Anson Yi Haroon DO Facility:[facility] Start: 07-21-2023 End: 07-21-2023 ambulatory Lorin Mirza PERIOPERATIVE EDUCATOR-DRAPERY SEAMSTRESS Facility:[facility] Start: 06-27-2023 End: 06-27-2023 ambulatory [facility] Start: 04-22-2023 End: 04-22-2023 ambulatory Jaquelin Schwab [facility] Work Phone: [facility] [place] Start: 04-22-2023 End: 04-22-2023 Patient encounter procedure Jaquelin Schwab [facility] Work Phone: [facility] [place] Start: 03-07-2023 End: 03-07-2023 ambulatory [facility] Start: 12-27-2022 End: 12-27-2022 ambulatory Katarina Niraj RPh,PharmD [facility] Start: 12-27-2022 Patient encounter procedure Mi gregory Niraj RP,PharmD [facility] Start: 12-23-2022 End: 12-23-2022 [facility] Start: 05-26-2022 ambulatory LORIN MIRZA Facility:[facility] Start: 05-26-2022 End: 05-26-2022 Office outpatient new 60 minutes Sanket Medina MD Work Phone: [facility] Comment on above: Focal epilepsy (Prim romeo Dx); Complicated migraine; Reversible cerebrovascular vasoconstriction syndrome Start: 05-11-2022 ambulatory LORIN CLEEMPUT Facility:[facility] Start: 03-29-2021 End: 03-29-2021 Emergency department patient visit Priyanka Angelo MD Facility:[facility] Start: 01-04-2020 End: 01-04-2020 Patient encounter procedure JEANNIE GARCIA [facility] Start: 01-04-2020 End: 01-04-2020 Subsequent hospital visit by physician [facility] Start: 01-01-2020 End: 01-06-2020 Patient encounter procedure JUAN A REDDING [facility] Start: 01-01-2020 End: 01-05-2020 Subsequent hospital visit by physician Laura Vidalid19 [facility] Comment on above: Pre-op testing Start: 12-15-2019 End: 12-18-2019 Evaluation and management of inpatient VIELKA LARSON IV [facility] Start: 12-15-2019 End: 12-18-2019 Evaluation and management of inpatient Tobias Zavala Work Phone: [address] Onc/Med Surg Comment on above: Intussusception (HCC ) (Primary Dx); S/P laparoscopic surgery Start: 07-29-2019 End: 07-29-2019 Emergency department patient visit TOBIAS MOSERIoana [facility] Start: 07-29-2019 End: 07-29-2019 Emergency department patient visit Tobias Hogan Work Phone: [facility] ED Comment on above: Evaluation for remov al of FLYNN drains (Primary Dx); Intractable episodic headache, unspecified headache type; Nausea; Yeast vaginitis Start: 07-23-2019 End: 07-24-2019 Emergency department patient visit VENICE CABALLERO [facility] Start: 07-23-2019 End: 07-23-2019 Emergency department patient visit Venice Caballero MD Work Phone: [facility] ED Comment on above: Abscess, intra-abdom inal, postoperative (Primary Dx); Yeast infection Start: 07-23-2019 End: 07-23-2019 Emergency department patient visit TOBIAS HOGAN [facility] Start: 07-23-2019 End: 07-23-2019 Emergency department patient visit [facility] ED Comment on above: Intra-abdominal absc ess (HCC) (Primary Dx) Procedures Date Procedure Procedure Detail Performing Clinician Start: 01-29-2021 End: 04-02-2024 H/O: hysterectomy History of hysterectomy Nona George Work Phone: Start: 01-04-2020 DISCHARGE PATIENT VENICE CABALLERO Start: 01-04-2020 Level iv surg pathology gross&microscopic exam VENICE CABALLERO Start: 01-04-2020 BEDREST VENICE HAILEY Start: 01-04-2020 Continuous pulse oximetry VENICE HAILEY Start: 01-04-2020 ENCOURAGE DEEP BREATHING AND COUGHING VENICE HAILEY Start: 01-04-2020 INITIATE OXYGEN THERAPY PROTOCOL VENICE CABALLERO Start: 01-04-2020 NOTIFY PHYSICIAN (SPECIFY) VENICELuke CABALLERO Start: 01-04-2020 NURSING COMMUNICATION VENICE HAILEY Start: 01-04-2020 VITAL SIGNS VENICE CABALLERO Start: 01-01-2020 COVID-19 AMBULATORY TOBIAS HOGAN Start: 01-01-2020 COVID-19 AMBULATORY Juan A Redding Work Phone: Start: 12-18-2019 INITIATE OXYGEN THERAPY PROTOCOL VENICE CABALLERO Start: 12-18-2019 DISCHARGE PATIENT VENICE CABALLERO Start: 12-18-2019 INTAKE AND OUTPUT VENICE HAILEY Start: 12-17-2019 DIET GENERAL VENICE HAILEY Start: 12-17-2019 MISCELLANEOUS NURSING CARE ORDER (SPECIFY) VENICE FISHERBER Start: 12-17-2019 TRANSFER PATIENT VENICE CABALLERO Start: 12-17-2019 End: 12-17-2019 LAPAROSCOPY EXPLORATORY Jeannie Mathis on Work Phone: Start: 12-17-2019 INITIATE OXYGEN THERAPY PROTOCOL VENICE FISHERBER Start: 12-17-2019 INTAKE AND OUTPUT VENICE HAILEY Start: 12-16-2019 INITIATE OXYGEN THERAPY PROTOCOL VENICE HAILEY Start: 12-16-2019 Radiologic exam abdomen 1 view VENICE CABALLERO Start: 12-16-2019 Comprehensive metabolic panel VENICE HAILEY Start: 12-16-2019 Radiologic exam abdomen 1 view Obdulio Harrison Work Phone: Start: 12-16-2019 BASIC METABOLIC PANEL W/ REFLEX TO MG FOR LOW K Malou Vidal Work Phone: Start: 12-16-2019 Blood count complete auto&auto difrntl wbc Malou Vidal Work Phone: Start: 12-16-2019 INTAKE AND OUTPUT VENICE CABALLERO Start: 12-15-2019 FULL CODE VENICE CABALLERO Start: 12-15-2019 INTAKE AND OUTPUT VENICE CABALLERO Start: 12-15-2019 REASON FOR NO MECHANICAL VTE PROPHYLAXIS VENICE CABALLERO Start: 12-15-2019 INITIATE OXYGEN THERAPY PROTOCOL VENICE CABALLERO Start: 12-15-2019 TOBACCO CESSATION EDUCATION VENICE CABALLERO Start: 12-15-2019 VITAL SIGNS VENICE CABALLERO Start: 12-15-2019 COVID-19 VENICE HAILEY Start: 12-15-2019 PATIENT STATUS (FROM ED OR OR/PROCEDURAL) VENICE CABALLERO Start: 12-15-2019 COVID-19 Trey Rubi Work Phone: Start: 12-15-2019 Ct abdomen & pelvis w/contrast material VENICE CABALLERO Start: 12-15-2019 Ct abdomen & pelvis w/contrast material Trey Rubi Work Phone: Start: 12-15-2019 Assay of lipase VENICE CABALLERO Start: 12-15-2019 Blood count complete auto&auto difrntl wbc VENICE CABALLERO Start: 12-15-2019 Comprehensive metabolic panel VENICE CABALLERO Start: 12-15-2019 Assay of lipase Trey Rubi Work Phone: Start: 12-15-2019 Blood count complete auto&auto difrntl wbc Trey Rubi Work Phone: Start: 12-15-2019 Comprehensive metabolic panel Trey Rubi Work Phone: Start: 07-29-2019 Drug screen quantitative topiramate TOBIAS HOGAN Start: 07-29-2019 Quantitation drug not elsewhere specified TOBIAS HOGAN Start: 07-29-2019 ED NURSING COMMUNICATION TOBIAS SOTO V Start: 07-29-2019 Radiologic exam chest 2 views TOBIAS HOGAN Start: 07-29-2019 Blood count complete auto&auto difrntl wbc TOBIAS HOGAN Start: 07-29-2019 Gonadotropin chorionic qualitative TOBIAS HOGAN Start: 07-29-2019 Ecg routine ecg w/least 12 lds w/i&r TOBIAS HOGAN Start: 07-29-2019 ED NURSING COMMUNICATION TOBIAS SOTO V Start: 07-29-2019 Radiologic exam chest 2 views Tobias Hogan DO Work Phone: Start: 07-29-2019 Gonadotropin chorionic qualitative Tobias Hogan DO Work Phone: Start: 07-29-2019 Ecg routine ecg w/least 12 lds w/i&r Tobias Hogan DO Work Phone: Start: 07-24-2019 IP CONSULT TO GENERAL SURGERY VENICE CABALLERO Start: 07-23-2019 Ct abdomen & pelvis w/contrast material TOBIAS HOGAN Start: 07-23-2019 Assay of lipase TOBIAS HOGAN Start: 07-23-2019 Blood count complete auto&auto difrntl wbc TOBIAS HOGAN Start: 07-23-2019 Comprehensive metabolic panel TOBIAS HOGAN Start: 07-23-2019 Urinalysis microscopic only TOBIAS HOGAN Start: 07-23-2019 Urnls dip stick/tablet rgnt auto w/o microscopy TOBIAS HOGAN Start: 07-23-2019 SALINE LOCK IV TOBIAS HOGAN Start: 07-23-2019 Ct abdomen & pelvis w/contrast material Krishna Butler Li PA Work Phone: Start: 07-23-2019 Comprehensive metabolic panel Krishna Jefferson PA Work Phone: Start: 07-23-2019 Urinalysis microscopic only Krishna A Li PA Work Phone: Start: 07-23-2019 Urnls dip stick/tablet rgnt auto w/o microscopy Krishna A Dustinuda PA Work Phone: Start: 06-29-2016 End: 04-02-2024 H/O: section History of Nona Landry DO Work Phone: Plan of Treatment Date Care Activity Detail Author Start: 04-10-2025 Urine screening for protein Diabetes: Urine Protein Screening [facility] Start: 08-14-2024 End: 08-14-2024 Patient encounter procedure 08/14/2024 10:20 AM EST Office Visit [facility] [address] [place] [phone] Mela Santos PA [address] [place] [address] [facility] Start: 08-09-2024 End: 08-09-2024 Patient encounter procedure 08/09/2024 3:20 PM EST Office Visit [facility] [address] [place] [phone] Nona Landry DO [address] [place] [address] [facility] Start: 07-02-2024 Hemoglobin A1c measurement Diabetes[facility] Start: 06-18-2024 End: 06-18-2024 Patient encounter procedure 06/18/2024 3:20 PM EST Office Visit [facility] [address] [place] [phone] Marisa Bowers, JESSIE [address] [place] [address] [facility] Start: 05-10-2024 End: 05-10-2024 Patient encounter procedure [facility] 230 Comment on above: Arrived Start: 03-25-2024 Influenza vaccination INFLUENZA VACC INE (#1) [facility] Start: 05-05-2023 End: 05-05-2023 Patient encounter procedure 05/05/2023 2:30 PM EDT Office Visit [facility] [address] [place] [phone] Argentina Diane MD [address] [place] [address] [facility] Start: 03-25-2023 COVID-19 VACCINE ( season) COVID-19 VACCINE ( season) [facility] Start: 03-25-2023 Influenza vaccination INFLUENZ A VACCINE (Season Ended) [facility] Start: 12-08-2022 End: 12-08-2022 Patient encounter procedure 12/08/2022 Office Visit Neurology Sanket Medina MD [address] [place] [address] [facility] Start: 08-10-2022 End: 08-10-2022 Patient encounter procedure 08/10/2022 Office Visit Neurology Argentina Diane MD [address] [place] [address] [facility] Start: 03-25-2022 Influenza vaccination INFLUENZA VACC INE (#1) [facility] Start: 03-25-2020 Influenza vaccination Flu vacc ine (Season Ended) [place], [place] Start: 03-25-2019 Influenza vaccination [facility] (# [facility] Start: 2018 Screening for malign ant neoplasm of cervix [facility] Start: 2009 Cervical cancer screen Cervical canc er screen [facility] [employer] Phone: Start: 2009 Screening for malign ant neoplasm of cervix [facility] Start: 10-25-2007 DTaP/Tdap/Td vaccine (1 - Tdap) DTaP/Tdap/Td vaccine (1 - Tdap) [place], [place] Start: 10-25-2007 Hepatitis B vaccination HEP B VACCINE (1 of 3 - 19+ 3-dose series) [facility] Start: 10-25-2007 Third diphtheria, tetanus and acellular pertussis (DTaP) vaccination TDAP (ADULT) [facility] Start: 10-25-2007 Urine screening for protein Diabetes: Urine Protein Screening [facility] Start: 2006 Tetanus vaccination TETANUS [facility] Start: 10-25-2003 HIV screen HIV screen [facility] Work Phone: Start: 10-25-[address] [facility] Start: 10-25-1999 DTaP/Tdap/Td vaccine (1 - Tdap) DTaP/Tdap/Td vaccine (1 - Tdap) [facility] [employer] Phone: Start: 1998 Glaucoma screening Diabetes: R etinopathy Screening [facility] Start: 1989 Varicella vaccine (1 of 2 - 2-dose childhood series) Varicella vaccine (1 of 2 - 2-dose childhood series) [facility]: Start: 04-25-1989 COVID-19 VACCINE (#1) COVID-19 VACCI NE (#1) [facility] Start: 1988 Hepatitis C screening HEPATITI S C VIRUS SCREENING [facility] Start: 1988 Tetanus vaccination TETANUS [facility] EKG 12 Lead EKG 12 Lead ECG STAT 07/29/2019 2:25 PM EST [employer] Phone: Initiate Oxygen Ther [facility]y [facility] Comment on above: Daily until disconti nued starting 12/15/2019 Daily until disconti nued starting 01/04/2020 End: 07-29-2019 Levetiracetam Level Levetiracetam Level Lab STAT One Time for 1 Occurrences starting 07/29/2019 until 07/29/2019 [employer] Phone: Comment on above: One Time for 1 Occur rences starting 07/29/2019 until 07/29/2019 Levetiracetam Level Levetiraceta m Level Lab STAT 07/29/2019 3:45 PM EST [employer] Phone: Phase I & II - meter ed glucose Phase I & II - metered glucose Point of Care Testing Routine As Needed until discontinued starting 01/04/2020 [facility] Comment on above: As Needed until disc ontinued starting 01/04/2020 Surgical Pathology Surgical Path ology Lab Routine Release Upon Ordering for 1 Occurrences starting 01/04/2020 [facility] [place], [place] Comment on above: Release Upon Orderin g for 1 Occurrences starting 01/04/2020 End: 07-29-2019 Topiramate Level Topiramate Level Lab Routine One Time for 1 Occurrences starting 07/29/2019 until 07/29/2019 [employer] Work Phone: Comment on above: One Time for 1 Occur rences starting 07/29/2019 until 07/29/2019 Topiramate Level Topiramate Leve l Lab STAT 07/29/2019 3:45 PM EST [employer] Work Phone: Immunizations Immunization Date Immunization Notes Care Provider [facility] 04-01-2023 influenza, injectabl e, quadrivalent, preservative free Nona Constantinoler DO Work Phone: [facility] 04-01-2023 varicella virus vaccine Rajat ruben [place] DO Work Phone: [facility] 04-01-2023 influenza virus vaccine, unspecified formulation Jaquelin Schwab [facility] Work Phone: [facility] 04-29-2021 influenza virus vaccine, unspecified formulation Sanket Medina MD Work Phone: [facility] Payers Date Payer Category Payer Medicaid (Managed Care) [facility] MEDICAID [id number] 2022 Unknown [id number] 2022 Medicaid [id number] 2021 Medicaid [facility] MEDICA[employer] COM MUNITY PLAN [facility] [employer]ICA[employer] COMMUNITY PLAN [id number] 2021-Present [address] [place] [address] [id number] 2021 Private Health Insurance 2014 Private Health Insurance [facility] PLAN xxxxxxxxx 2014-Present [phone] [address] [place] [address] xxxxxxxxx [id number] 2014 Private Health Insurance [id number] 1988 Unknown [id number]. 173 1988 Unknown [id number] [id number]. 175 1988 Unknown [id number] [id number]. 175 1988 Unknown [id number] [id number]. 196 1988 Unknown [id number] [id number]. 594 1988 Unknown [id number] 2.16.840.1.811815.3.579.2. 594 1988 Unknown [id number] [id number]. 1259 1988 Unknown [id number] [id number]. 1259 1988 Unknown [id number] 2.16.840.1.145730.3.579.2. 1259 1988 Unknown [id number] 2.16.840.1.829576.3.579.2. 196 1988 Unknown [id number] 2.16.840.1.493478.3.579.2. 196 1988 Unknown [id number] 2.16.840.1.176223.3.579.2. 196 1988 Unknown [id number] [id number]. 196 1988 Unknown [id number] 2.16.840.1.537593.3.579.2. 196 1988 Unknown [id number] [id number]. 196 1988 Unknown [id number]. 196 Social History Date Type Detail Facility Start: 12-18-2019 End: 03-09-2024 Tobacco smoking status NJIS Never smoker [employer] Phone: Start: 12-18-2019 End: 05-26-2022 Alcohol intake Ex-drinker (finding) [employer] Phone: Start: 07-23-2019 History SDOH Alcohol Frequency 1 [employer] Phone: Start: 1990 Sex Assigned At Not on file [employer] Phone: Exposure to SARS-CoV -2 (event) Unable to assess [employer] [place] Start: 01-04-2020 End: 05-10-2024 Alcohol intake Lifetime [facility]-drinker (finding) [facility] [employer] [facility] Start: 1990 Sex Assigned At Female [facility] [employer] Work Phone: Start: 12-29-2021 Tobacco smoking status NJIS Ex-smoker [facility] History of tobacco use Current smoker [facility] History of tobacco use Cigarette Smoker O [facility] Start: 12-29-2021 End: 03-09-2024 Tobacco use and exposure Smokeless tobacco non-user [facility] Start: 05-26-2022 End: 03-27-2024 History of Social function [facility] Start: 05-26-2022 End: 03-27-2024 Tobacco use panel [facility] Start: 09-12-2022 Gender identity Identifies as female gender (finding) [facility] How often do you nee d to have someone help you when you read instructions, pamphlets, or other written material from your doctor or pharmacy [SILS] Never [facility] Do you belong to any clubs or organizations such as anabaptist groups, unions, fraternal or athletic groups, or school groups? No [facility] Are you now , , , , never or living with a partner? Living with partner [facility] How often to you hav e a drink containing alcohol? Never [facility] How hard is it for y ou to pay for the very basics like food, housing, medical care, and heating Somewhat hard [facility] Do you feel stress - tense, restless, nervous, or anxious, or unable to sleep at night because your mind is troubled all the time - these days [OSQ] To some extent [facility] (I/We) worried wheth er (my/our) food would run out before (I/we) got money to buy more. Sometimes true [facility] The food that (I/we) bought just didn't last, and (I/we) didn't have money to get more. Never true [facility] Goals Date Patient Goal Desired Activity /State Clinical Notes 07-23-2019 to 05-10-2024 Nona Landry, - 05/10/2024 4:00 PM Amy Pineda - 04/22/2023 10:06 AM Heather Healy RPh,PharmD - 12/27/2022 2:48 PM Heather Healy RPh,PharmD - 12/27/2022 2:48 PM EDTInstructions Note Date & Type Note Facility 05-10-2024 History of Present illness Narrative Images from the original note were not included. SUBJECTIVE: HPI: Rachid Mojica is a 33 y.o. female who presents with chief complaint of Follow-up Pt states her BS has been fluctuating from 200-56. Pt states that if she eats anything it does not matter what it is the range in BS happens. Pt states that she does not feel the Sue is helping. I have reviewed and reconciled the history and medication list with the patient today. Depression: Not at risk (04/02/2024) PHQ-2 PHQ-2 Score: 0 reports that she has never smoked. She has never used smokeless tobacco. She reports that she does not drink alcohol and does not use drugs. OBJECTIVE: 03/13/2024 1:27 PM 04/02/2024 9:29 AM 05/10/2024 3:37 PM Vitals BMI 29.72 kg/m2 29.35 kg/m2 BSA (m2) 1.93 m2 1.92 m2 Systolic 104 126 112 Diastolic 60 74 70 Heart Rate 92 90 SpO2 97 % 98 % Temp 97.2 F 97.8 F Height (in) 5' 5 5' 5 Weight (lb) 178 178.6 176.4 Visit Report Report Report Report Physical Exam Constitutional: General: She is not in acute distress. Appearance: She is not ill-appearing or toxic-appearing. HENT: Head: Normocephalic. Eyes: Conjunctiva/sclera: Conjunctivae normal. Pulmonary: Effort: Pulmonary effort is normal. No respiratory distress. Breath sounds: No stridor. Abdominal: General: Abdomen is flat. Tenderness: There is no abdominal tenderness. Musculoskeletal: General: No swelling or signs of injury. Normal range of motion. Cervical back: Normal range of motion. Skin: General: Skin is warm and dry. Neurological: General: No focal deficit present. Mental Status: She is alert. Mental status is at baseline. Psychiatric: Mood and Affect: Mood normal. Behavior: Behavior normal. Thought Content: Thought content normal. Judgment: Judgment normal. No results found for this or any previous visit (from the past 4 weeks). ASSESSMENT AND PLAN: Assessment/Plan Diagnoses and all orders for this visit: Type 2 diabetes mellitus with hypoglycemia without coma, without long-term current use of insulin (CMS/HCC) Reactive hypoglycemia Dumping syndrome Attention deficit hyperactivity disorder (ADHD), unspecified ADHD type (CMS/HCC) Mild episode of recurrent major depressive disorder (HCC) (CMS/HCC) - mirtazapine (Remeron) 30 MG tablet; Take 1 tablet (30 mg) by mouth at bedtime Sample of ozempic given today, she will notify me on progress avoiding high and low BP Nona Landry DO Patient Active Problem List Diagnosis Chronic fatigue Anxiety disorder Depression with anxiety PTSD (post-traumatic stress disorder) ([facility] 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[facility]) History of gastric bypass Hypoglycemia Celiac disease ([facility]) Migraine without aura and without status migrainosus, not intractable ([facility]) PCOS (polycystic ovarian syndrome) Reactive hypoglycemia Seizures ([facility] [facility]) Vitamin D insufficiency Past Medical History: Diagnosis Date ADHD (attention deficit hyperactivity disorder) ([facility] Cervical radiculitis 08/11/2021 Added automatically from request for surgery [id number] Cervical shortening affecting 07/21/2016 Cervical spondylosis without myelopathy 01/28/2021 Cervicalgia 01/28/2021 Gastrojejunal ulcer 01/21/2020 History of hysterectomy 01/29/2021 Menorrhagia with irregular cycle 04/02/2024 Migraine ([facility]) 2005 SAH (subarachnoid hemorrhage) ([facility]) 12/08/2021 Seizures [place] 2004 documented in this encounter [facility] 07-12-2023 Note Referral from Soniya Rivero MD to see javascript software engineer for hypoglycemia. Phone number on file is not an active number and call could not be completed. Clinic phone number for dietitian appointment [phone]. [facility] 06-27-2023 Note Attestation signed by Daryn [...] en Y gastric bypass in 2014 at [place], [place]. She lost about 150 lbs and [...] alarm. Reports Tuesday while working at the [employer] she got symptoms of hypoglycemia and during [...] hyperglycemia and hypoglycemia Glucometer: Method: [Downloaded] CGM: [Zentila G6]: % Time CGM is active (target [...] She has tri (more content not included)... [facility] 04-22-2023 History of Present illness Narrative [facility]: Call Information: Date and Time of Contact: 04/22/2023 10:08 AM Method of Contact: By Phone Contact Type: Prescriptions Contactor: [facility] Contactee: Patient Shipping/Pickup: Medicare B Refill?: No Medication Name: Ajovy 225 MG/1.5ML Delivery Method: Air Delivery Location: Home Signature Required: No Mailing/Pickup Date: 04/28/2023 Shipping Address: [address] Contact Info: Specialty ([place]) [phone] [facility] [place] [phone] [facility] [phone] [facility] [phone] Bedside Delivery ([facility]) [phone] documented in this encounter [facility] 03-07-2023 Note Attestation signed by Daryn Mckee [...] en Y gastric bypass in 2014 at [place], [place]. She lost about 150 lbs and [...] alarm. Reports Tuesday while working at the [employer] she got symptoms of hypoglycemia and during [...] 2. Reactive hypoglycemia: (more content not included)... [facility] 01-06-2023 Note Patient's number has been unreachable. Will try calling again. [facility] 12-27-2022 Note Attestation signed by Daryn [...] en Y gastric bypass in 2014 at [place], [place]. She lost about 150 lbs and [...] whenever Dexcom gave her an alarm. Reports Saturday while working at the [employer] she got symptoms of hypoglycemia and during [...] OGTT done in last 6 months [facility] where she states she had hyperglycemia followed [...] consider pharmacological treatment. Will start with acarbose. [facility] 12-27-2022 History of Present illness Narrative [facility]REACH [facility]: Call Information: Date and Time of Contact: 12/27/2022 2:50 PM Method of Contact: By Phone Contact Type: Prescriptions Contactor: [facility] Contactee: Patient Contact Outcome: Left message and Follow-up (Ajovy refill / MMO) Contact Info: Specialty ([place]) [phone] [facility] [place] [phone] [facility] [phone] [place] [phone] Bedside Delivery ([facility]) [phone] [facility]REACH [facility]: Call Information: Date and Time of Contact: 12/29/2022 12:55 PM Method of Contact: By Phone Contact Type: Prescriptions Contactor: [facility] Contactee: Patient Contact Outcome: Left message and Follow-up (Ajovy msot) Contact Info: Specialty ([place]) [phone] [facility] [place] [phone] [facility] [phone] [place] [phone] Bedside Delivery ([facility]) [phone] [facility] OUTREACH ADVANCED: Call Information: Date and Time of Contact: 12/29/2022 1:32 PM Method of Contact: By Phone Contact Type: Prescriptions Contactor: Patient Contactee: [facility] Shipping/Pickup: Medicare B Refill?: No Medication Name: Ajovy 225MG /1.5ML Delivery Method: Air Delivery Location: Home Signature Required: No Mailing/Pickup Date: 12/30/2022 Shipping Address: [address] [place] [address] Contact Info: Specialty ([place]) [phone] [facility] [place] [phone] [facility] [phone] [place] [phone] Bedside Delivery ([facility]) [phone] [facility]REACH [facility]: Call Information: Date and Time of Contact: 12/29/2022 1:32 PM Contact Info: Specialty ([place]) [phone] [facility] [place] [phone] [facility] [phone] [place] [phone] Bedside Delivery ([facility]) [phone] I performed phone call visit for Rachid [...] occurred during today's visit: Name: Katarina Healy RPh,PharmD Date/Time: 12/29/2022 1:32 PM I performed phone [...] 12/29/2022 1:32 PM documented in this encounter [facility] 12-27-2022 Miscellaneous Notes Addended by: JAQUELIN SCHWAB on: 12/29/2022 01:41 PM Modules accepted: Orders documented in this encounter [facility] 12-27-2022 Note Addended by: JAQUELIN SCHWAB on: 12/29/2022 01:41 PM Modules accepted: Orders [facility] 12-27-2022 Note Addended by: JAQUELIN SCHWAB on: 12/29/2022 01:41 PM Modules accepted: Orders [facility] 12-27-2022 Note Addended by: JAQUELIN SCHWAB on: 12/29/2022 01:41 PM Modules accepted: Orders [facility] 12-27-2022 Note Addended by: JAQUELIN SCHWAB on: 12/29/2022 01:41 PM Modules accepted: Orders [facility] 12-23-2022 Note REASON FOR VISIT: Rachid Mojica is a 32 y.o. female who is being seen today in consultation at the request of Lorin Mirza NP for evaluation of her hypoglycemia. Patient [...] OGTT done in last 6 months at [facility] where she states she had hyperglycemia followed [...] the morning., Disp: , Rfl: Dexcom G6 Drawer In Stitch Bonding Machine misc, , Disp: , Rfl: Dexcom G6 [...] Rfl: 2 blood-glucose meter (OneTouch Ultra2 Meter) misc, Use to check blood sugar., Disp: 1 each, Rfl: 0 glucose 4 gram chewable tablet, Chew 4 tablets (16 g) if needed each day for low blood sugar., Disp: 50 tablet, Rfl: 3 lancets (Comfort Lancets) misc, Use to check blood sugar for hypoglycemia., [...] Hypoglycemia - Gluco (more content not included)... [facility] 05-26-2022 History of Present illness Narrative [facility]psy [facility] HISTORY OF PRESENT ILLNESS Rachid Mojica is a 31 y.o. right handed female with a history of chronic intractable migraines complicated with reversible vasoconstriction syndrome (RCVS), recent event of SAH sec to RCVS who presents to [facility] at [facility] for establishing the care taking management [...] Denies any insomnia or excessive sleepiness. 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 Sanket Medina MD Deflector Operator of Neurology [facility] Department of Neurology - Epilepsy Division [address] [place] [address] - [facility] floor [place] [phone] . Total time to complete the visit : 60 minutes (record review, face to face encounter and documentation) . documented in this encounter [facility] 05-26-2022 Instructions Sanket Medina MD - 05/26/2022 11:00 AM EDT Topamax only half tab in morning and full tablet Headache clinic referral documented in this encounter [facility] 07-29-2019 Hospital Discharge instructions Tobias Hogan, - 07/29/2019 Return to the Emergency Department immediately if you develop a fever, vomiting, worsening pain, worsening drainage from the FLYNN drain, or you have any other concerns. Please follow up with your surgeon in 1-2 days. The following attachments cannot be sent through Care Everywhere.Vaginal Yeast Infection ([place])documented in this encounter [facility] [employer] Phone: 07-23-2019 Hospital Discharge instructions Jose Watson [...] care or concern. documented in this encounter [facility] Phone: Evaluation note Diagnosis Intra-abdominal abscess (HCC)- Primary Peritoneal abscess documented in this encounter [facility] Phone: evaluation note* Diagnosis Abscess, intra-abdominal, postoperative- Primary Other postoperative infection Yeast infection Other and unspecified mycoses documented in this encounter [facility] Phone: evaluation note* Diagnosis Evaluation for removal of FLYNN drains- Primary Other specified aftercare following surgery Intractable episodic headache, unspecified headache type Nausea Nausea alone Yeast vaginitis Candidiasis of vulva and vagina documented in this encounter [facility] Phone: evaluation note* Diagnosis Focal epilepsy- Primary Localization-related (focal) (partial) epilepsy and epileptic syndromes with simple partial seizures, without mention of intractable epilepsy Complicated migraine Migraine with aura, without mention of intractable migraine without mention of status migrainosus Reversible cerebrovascular vasoconstriction syndrome Other ill-defined cerebrovascular disease [facility] Diagnosis Attention deficit hyperactivity disorder (ADHD), unspecified ADHD type (CMS/HCC)- Primary [facility] Diagnosis Type 2 diabetes mellitus with hypoglycemia without coma, without long-term current use of insulin (CMS/HCC)- Primary Reactive hypoglycemia Hypoglycemia, unspecified Dumping syndrome Postgastric surgery syndromes Attention deficit hyperactivity disorder (ADHD), unspecified ADHD type (CMS/HCC) Mild episode of recurrent major depressive disorder (HCC) (CMS/HCC) [facility] Diagnosis Attention deficit hyperactivity disorder (ADHD), unspecified ADHD type (CMS/HCC) [facility] Diagnosis Type 2 diabetes mellitus with hypoglycemia without coma, without long-term current use of insulin (CMS/HCC) Dumping syndrome Postgastric surgery syndromes [facility] Consultation (Urgent) - New Request Specialty Diagnoses / Procedures Referred By Clint mora Referred To Contact Neurology Diagnoses Complicated migraine Reversible cerebrovascular vasoconstriction syndrome Sanket Medina MD [address] [place] [address] Referral ID Status Reason Start Date Expiration Date V isits Requested Visits Authorized [id number] New Request 05/26/2022 06/20/2023 1 1 [facility] Discharge Instructions * Instructions* Obdulio [...] questions, PLEASE call your doctor or the [facility] Weight Management center at documented in this encounter History of Present Illness * Sierra Santillan RN - 12/18/2019 3:25 PM EDT Patient given discharge instructions. All questions answered. Patient ambulated off unit for discharge. * Corina Juárez - 12/18/2019 12:19 PM EDT CLINICAL PHARMACY NOTE: MEDS TO [facility] Patient?: No Total # of Prescriptions Filled: 2 The following medications were delivered to the patient: roxicodone dok Total # of Interventions Completed: 0 Time [...] Garcia DO - 12/17/2019 11:06 AM EDT [address] ONC/MED SURG [address] [place] [address] Dept: [phone] Loc: [phone] Bariatrics: Asked to see patient today regarding [...] GJ ulcer approximately 2.5 months ago in [place]. Primary surgery done in [place]. BP (!) 95/46 Pulse 68 Temp 97.9 F (36.6 C) (Oral) Resp 18 Ht 5' 5 (1.651 m) Wt 147 lb (66.7 kg) SpO2 98% BMI 24.46 kg/m Abdom: Soft, non distended, fullness on the left, but some rebound from the right Labs: 12/16/2019 6:14 AM - Abner, Jenifferpn Incoming Lab Results From [facility] Component Value Ref Range & Units Status Collected Lab WBC 5.8 3.5 - 11.3 k/uL Final 12/16/2019 6:00 AM [facility] RBC 4.36 3.95 - 5.11 m/uL Final 12/16/2019 6:00 AM [facility] Hemoglobin 13.5 11.9 - 15.1 g/dL Final 12/16/2019 6:00 AM [facility] Hematocrit 41.6 36.3 - 47.1 % Final 12/16/2019 6:00 AM [facility] MCV 95.4 82.6 - 102.9 fL Final 12/16/2019 6:00 AM [facility] MCH 31.0 25.2 - 33.5 pg Final 12/16/2019 6:00 AM [facility] MCHC 32.5 28.4 - 34.8 g/dL Final 12/16/2019 6:00 AM [facility] RDW 12.2 11.8 - 14.4 % Final 12/16/2019 6:00 AM [facility] Platelets 154 138 - 453 k/uL Final 12/16/2019 6:00 AM [facility] MPV 10.6 8.1 - 13.5 fL Final 12/16/2019 6:00 AM [facility] NRBC Automated 0.0 0.0 per 100 WBC Final 12/16/2019 6:00 AM [facility] Differential Type NOT REPORTED Final 12/16/2019 6:00 AM [facility] WBC Morphology NOT REPORTED Final 12/16/2019 6:00 AM [facility] RBC Morphology NOT REPORTED Final 12/16/2019 6:00 AM [facility] Platelet Estimate NOT REPORTED Final 12/16/2019 6:00 AM [facility] Seg Neutrophils 44 36 - 65 % Final 12/16/2019 6:00 AM [facility] Lymphocytes 41 24 - 43 % Final 12/16/2019 6:00 AM [facility] Monocytes 9 3 - 12 % Final 12/16/2019 6:00 AM [facility] Eosinophils % 5High 1 - 4 % Final 12/16/2019 6:00 AM [facility] Basophils 1 0 - 2 % Final 12/16/2019 6:00 AM [facility] Immature Granulocytes 0 0 % Final 12/16/2019 6:00 AM [facility] Segs Absolute 12/16/2019 6:31 AM - Abner, Chris Incoming Lab Results From [facility] Component Value Ref Range & Units Status Collected Lab Glucose 83 70 - 99 mg/dL Final 12/16/2019 6:00 AM [facility] BUN 9 6 - 20 mg/dL Final 12/16/2019 6:00 AM [facility] CREATININE 0.55 0.50 - 0.90 mg/dL Final 12/16/2019 6:00 AM [facility] Bun/Cre Ratio NOT REPORTED 9 - Final 12/16/2019 6:00 AM [facility] Calcium 8.5Low 8.6 - 10.4 mg/dL Final 12/16/2019 6:00 AM [facility] Sodium 137 135 - 144 mmol/L Final 12/16/2019 6:00 AM [facility] Potassium 3.8 3.7 - [...] 18:54 Reading Providers Read Date Phone Pager RICHARDHÉCTOR December 15, 2019 All Reviewers List Rigoberto Orellana DO on 12/17/2019 08:40 Routing History Priority Sent On From To Message Type 12/15/2019 6:56 PM Abner, [facility] Incoming Radiant Results From Cardiioe/Pacs Rigoberto Orellana DO CC'd Results Radiation Dose [...] Urrutia MD General Surgery PGY2 Pager Number: [phone] * Kiya Cordero RN - 12/16/2019 4:52 PM EDT Per yoselin Paredes to hep lock pt while she is on clear liquid diet * Vielka Larson IV, DO - 12/16/2019 7:19 AM EDT General Surgery: [...] Documents on File Type Date Recorded Patient Store Detective Expl anation Advance Directives and Living Will Power of Systems Architecture Analyst Latest Code Status on File Code Status Date Activated Date Inactivated Comments Full Code 12/15/2019 9:45 PM Latest Code Status on File Code Status Date Activated Date Inactivated Comments Full Code 12/15/2019 9:45 PM 12/18/2019 5:31 PM Documents on File Type Date Recorded Patient Store Detective Expl anation Advance Directives and Living Will Power of Systems Architecture Analyst Latest Code Status on File Code Status [...] (HCC) Intussusception intestine (HCC) Jeannie Garcia DO [address] [place] [id number] [employer] Status Reason Specialty Diagnoses / Procedures Re ferred By Contact Referred To Contact Diagnoses Epigastric pain EPIGASTRIC PAIN Procedures OR OFFICE/OUTPT VISIT,PROCEDURE ONLY OR ESOPHAGOGASTRODUODENOSCOPY TRANSORAL DIAGNOSTIC EGD ESOPHAGOGASTRODUODENOSCOPY Jeannie Garcia DO [address] [place] [address] [employer] Reason Comments Emesis pt states she has be en vomiting since a surgery for a ruptured lining during a scope Reason Comments Abdominal Pain Reason Comments Post-op Problem pt states she has an infection in her drain tubes Reason Comments New Patient Specialty Diagnoses / Procedures Referred By Clint mora Referred To Contact Neurology Diagnoses History of seizures Alissa Gibbs APRN-OSMANY [address] [facility] [address] [place] [address] Referral ID Status Reason Start Date Expiration Date V isits Requested Visits Authorized [id number] New Request 12/29/2021 01/23/2023 1 1 Reason Onset Date Comments Med Refill 05/08/2024 Reason Comments Follow-up Reason Onset Date Comments Med Refill 06/10/2024 Reason Onset Date Comments Med Refill 06/17/2024 INFORMATION SOURCE (unrecogn ized section and content) DATE CREATED AUTHOR 01/05/2020 [facility] DATE CREATED AUTHOR AUTHOR'S ORGANIZ ATION 01/07/2020 [facility] DATE CREATED AUTHOR AUTHOR'S ORGANIZ ATION 03/30/2021 [facility] DATE CREATED AUTHOR AUTHOR'S ORGANIZ ATION 01/03/2023 [facility] DATE CREATED AUTHOR AUTHOR'S ORGANIZ ATION 11/12/2023 [facility] DATE CREATED AUTHOR AUTHOR'S ORGANIZ ATION 05/13/2024 [facility] EPIC DATE CREATED AUTHOR AUTHOR'S ORGANIZ ATION 06/09/2024 [facility] Care Teams (unrecognized sec tion and content) Straightener Relationship Specialty Start Date End Date Lorin Mirza CNP [address] [place] [address] PCP - General Nurse Practitioner - Family 12/29/21 Straightener Relationship Specialty Start Date End Date Lorin Mriza CNP [address] [place] [address] PCP - General Nurse Practitioner - Family 12/29/21 Straightener Relationship Specialty Start Date End Date Lorin Mirza CNP [address] [facility] [address] [place] [address] PCP - General Nurse Practitioner - Family 12/29/21 Straightener Relationship Specialty Start Date End Date Nona Landry DO [address] [place] [address] PCP - General Family Medicine 04/02/24 Straightener Relationship Specialty Start Date End Date Nona Landry DO [address] [place] [address] PCP - General Family Medicine 04/02/24 Straightener Relationship Specialty Start Date End Date Nona Landry DO [address] [place] [address] PCP - General Family Medicine 04/02/24 Straightener Relationship Specialty Start Date End Date Nona Landry DO [address] [place] [address] PCP - General Family Medicine 04/02/24 Straightener Relationship Specialty Start Date End Date Nona Landry DO [address] [place] [address] PCP - General Family Medicine 04/02/24 FOR RECORDS PERTAINING TO PATIENTS WHO ARE [...] BE BASED ON THE PRIMARY CLINICAL RECORDS. [employer] [facility]. provides no warranty or guarantee of the accuracy or completeness of information in this document.
--- NOTE | 2024-06-24 14:36 | ED_ITS ---
HPI HPI - General Adult General Chief complaint: Upper Respiratory Infection Stated complaint: FLU LIKE SYMPTOMS Time Seen by Provider: 06/24/24 14:28 Source: patient Mode of arrival: walk-in Limitations: no limitations History of Present Illness HPI narrative: 33-year-old female presents for 1 week history of head congestion. She works at an [employer]. Her throat hurts and she has no chest pain or abdominal pain. Symptoms have been continuous. Related Data Home Medications ?Medication ?Instructions ?Recorded ?Confirmed amitriptyline 25 mg tablet 25 mg PO QDAY PRN nerve pain 03/15/23 02/28/24 cholecalciferol (vitamin D3) 10 2,000 unit PO QDAY 03/15/23 02/28/24 mcg (400 unit) tablet (Vitamin D3) dexmethylphenidate 20 mg 20 mg PO QDAY 03/15/23 02/28/24 capsule,extended release [id number] fremanezumab-vfrm 225 mg/1.5 mL 225 mg subcut .qmonth 03/15/23 07/11/23 subcutaneous syringe (Ajovy Syringe) levetiracetam 500 mg tablet 750 mg PO Q12H 03/15/23 02/28/24 Previous Rx's ?Medication ?Instructions ?Recorded amoxicillin 875 mg-potassium 1 tab PO Q12H #14 tabs 07/11/23 clavulanate 125 mg tablet methocarbamol 750 mg tablet 750 mg PO TID PRN pain #20 tabs 08/30/23 methylprednisolone 4 mg tablets in See Rx Instructions .Route 08/30/23 a dose pack (Medrol (Isaac)) .COMPLEX #21 ea orphenadrine citrate 100 mg 100 mg PO BID PRN muscle pain #14 02/28/24 tablet,extended release tabs prednisone 20 mg tablet See Rx Instructions .Route 02/28/24 .COMPLEX #12 tabs loratadine 5 mg-pseudoephedrine ER 1 tab PO Q12H PRN nasal congestion 06/24/24 120 mg tablet,extended #20 tabs release,12hr (Claritin-D 12 Hour) Allergies Allergy/AdvReac Type Severity Reaction Status Date / Time latex Allergy Intermediate Rash Verified 02/28/24 18:28 NSAIDS (Non-Steroidal AdvReac Intermediate Nausea Verified 02/28/24 18:28 Anti-Inflamma Opioid HPI Opioid Management Most Recent Opioid Data: Last Pain Scale 8 08/06/24 18:33 02/28/24 Ur Phencyclidine Scrn Negative (NEGATIVE) 03/15/23 09:25 02/23 09/16 Review of Systems ROS Narrative A ten point review of systems is negative except as noted above. PFSH PFS Social History Smoking status: Never smoker Little interest or pleasure in doing things: not at all Feeling down, depressed, or hopeless: not at all Exam Narrative Exam Narrative: Nurses note and vital signs reviewed and patient is not hypoxic. General: The patient appears well and in no apparent distress. Patient is resting comfortably on cart. Skin: Warm, dry, no pallor noted. There is no rash noted. Head: Normocephalic, atraumatic Eye: Normal conjunctiva, no drainage Ears, Nose, Mouth, and Throat: oral mucosa is moist. Nares patent. No pharyngeal erythema or exudate. Both TMs and both external canals are normal. Cardiovascular: Regular Rate and Rhythm Respiratory: Patient is in no distress, no accessory muscle use, lungs are clear to auscultation, no wheezing, rales or rhonchi Back: non-tender GI: Soft and nontender Musculoskeletal: The patient has no evidence of calf tenderness, no pitting donn ma, symmetrical pulses noted bilaterally Neurological: A&O, normal speech Psychiatric: Cooperative Constitutional Vital Signs, click to edit/add: Last Vital Signs Temp 98.2 F 06/24/24 14:21 Pulse 76 06/24/24 14:21 Resp 18 06/24/24 14:21 BP 142/111 H 06/24/24 14:21 Pulse Ox 96 06/24/24 14:21 O2 Del Method Room Air 06/24/24 14:21 Course Vital Signs Vital signs: Vital Signs Temperature 98.2 F 06/24/24 14:21 Pulse Rate 76 06/24/24 14:21 Respiratory Rate 18 06/24/24 14:21 Blood Pressure 142/111 H 06/24/24 14:21 Pulse Oximetry 96 06/24/24 14:21 Oxygen Delivery Method Room Air 06/24/24 14:21 Temperature 98.2 F 06/24/24 14:21 Pulse Rate 76 06/24/24 14:21 Respiratory Rate 18 06/24/24 14:21 Blood Pressure 142/111 H 06/24/24 14:21 Pulse Oximetry 96 06/24/24 14:21 Oxygen Delivery Method Room Air 06/24/24 14:21 Medical Decision Making MDM Narrative Medical decision making narrative: COVID, influenza, and strep are all negative. My clinical impression is that she has a viral URI and an antibiotic is not indicated. Treatment diagnosis and follow-up were discussed with the patient. Differential Diagnosis Differential Diagnosis: COVID, influenza, strep, viral URI Lab Data Lab results reviewed: Yes I reviewed the patient's lab results Labs: Lab Results 06/24/24 Range/Units 14:22 Influenza Type A Ag Negative Influenza Type B Ag Negative SARS-CoV-2 Ag (CV2AG) Negative (NEGATIVE) Streptococcus Screen Negative Discharge Plan Discharge Chief Complaint: Upper Respiratory Infection Clinical Impression: Upper respiratory infection Patient Disposition: Home, Self-Care Time of Disposition Decision: 15:08 Condition: Good Mode of Transportation: Private Vehicle Prescriptions / Home Meds: New Claritin-D 12 Hour 5-120 mg tablet extended release 12 hr 1 tab PO Q12H PRN (Reason: nasal congestion) Qty: 20 0RF No Action amoxicillin-pot clavulanate 875-125 mg tablet 1 tab PO Q12H Qty: 14 0RF amitriptyline 25 mg tablet 25 mg PO QDAY PRN (Reason: nerve pain ) cholecalciferol (vitamin D3) [Vitamin D3] 10 mcg (400 unit) tablet 2,000 unit PO QDAY dexmethylphenidate 20 mg capsule,ER biphasic 50-50 20 mg PO QDAY Ajovy Syringe 225 mg/1.5 mL syringe 225 mg SUBCUT .qmonth levetiracetam 500 mg tablet 750 mg PO Q12H methocarbamol 750 mg tablet 750 mg PO TID PRN (Reason: pain) Qty: 20 0RF methylprednisolone [Medrol (Isaac)] 4 mg tablets,dose pack See Rx Instructions .ROUTE .COMPLEX Qty: 21 0RF Rx Instructions: Taper as directed prednisone 20 mg tablet See Rx Instructions .ROUTE .COMPLEX Qty: 12 0RF Rx Instructions: 3 tabs daily for 2 days, then 2 tabs daily for 2 days, then 1 tab daily for 2 days orphenadrine citrate 100 mg tablet extended release 100 mg PO BID PRN (Reason: muscle pain) Qty: 14 0RF Print Language: Yi Instructions: Upper Respiratory Infection (ED) Referrals: Physician,Non-Staff, MD [Primary Care Provider] - 1 week
[2024-06-24 14:48] LABS: Influenza Virus A Antigen Negative; Influenza Virus B Antigen Negative; Internal Control Within Normal Limits; SARS-CoV-2 Ag NEGATIVE (NEGATIVE)
[2024-06-24 14:54] LABS: Internal Control Within Normal Limits; Strep A Antigen Screen Negative
[2024-06-24 15:15] VITALS: BP 111/70; O2SAT 98
== END 2024-06-24 15:17 | disposition home or self-care (01) ==
PROVIDERS: Emergency Provider Emergency Medicine
DX: J06.9 Acute upper respiratory infection, unspecified (principal)
CPT/HCPCS: 87070; 87502; 87804; 87811; 87880; 99285

== ENCOUNTER 2024-07-26 07:15 | Emergency (ER) | payer OTHER, SELFPAY ==
[2024-07-26 07:20] VITALS: BP 124/83; PULSE 78; TEMP 36.5; O2SAT 95; BMI 28.3
--- OUTSIDE RECORDS SUMMARY | 2024-07-26 07:23 | XMS_ITS | CCD ---
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 Address: When: NONA LANDRY [address] [place] [id number] [phone] Business (1) In 3 days 07/03/2024 Comments: Call to schedule a follow-up appointment with your family physician in the next 2 to 3 days. Use the Phenergan as needed for nausea. Return to the ED with any new or worsening symptoms. In the event that this physician does not participate in your insurance network, please consult with your insurance company to find a nearby participating provider. Patient Education Materials: Nausea and Vomiting, Adult, Iwli-fi-Kgpl A MESSAGE TO ALL PATIENTS REGARDING OPIOIDS PRESCRIPTION OPIOIDS: WHAT YOU NEED TO KNOW Prescription opioids can be used to help relieve xntqfgjc-of-bzpdoc pain and are often prescribed following a surgery or injury, or for certain health conditions. These medications can be an important part of the treatment but also come with serious risks. It is important to work with your healthcare provider to make sure you are getting the safest, most effective care. WHAT ARE THE RISKS AND SIDE EFFECTS OF OPIOID USE? Prescription opioids carry serious risks of addiction and overdose, especially with prolonged use. An opioid overdose, often marked by slowed breathing, can cause sudden . The use of prescription opioids can have a number of side effects as well, even when taken as directed: ??? Tolerance???meaning you might need to take more of the medication for the same pain relief ??? Physical dependence???meaning you have symptoms of withdrawal when a medication is stopped ??? Increased sensitivity to pain ??? Constipation ??? Nausea, vomiting, and dry mouth ??? Sleepiness and dizziness ??? Confusion ??? Depression ??? Low levels of testosterone that can result in lower sex drive, energy, and strength ??? Itching and sweating RISKS ARE GREATER WITH: ??? History of drug misuse, substance use disorder, or overdose ??? Mental health conditions (such as depression or anxiety) ??? Sleep apnea ??? Older age (65 years and older) ??? Avoid alcohol while taking prescription opioids. Also, unless specifically advised by your health care provider, medications to avoid include: ??? Benzodiazepines (such as Xanax or Valium) ??? Muscle relaxants (such as Soma or Flexeril) ??? Hypnotics (such as Ambien or Lunesta) ??? Other prescription opioids KNOW YOUR OPTIONS Talk to your health care provider about ways to manage your pain that don???t involve prescription opioids. Some of these options may actually work better and have fewer risks and side effects. Options may include: ??? Pain relievers such as acetaminophen, ibuprofen, and naproxen ??? Some medication that are also used for depression or seizures ??? Physical therapy and exercise ??? Cognitive behavioral therapy, a psychological, goal-directed approach, in which patients learn how to modify physical, behavioral, and emotional triggers of pain and stress. IF YOU ARE PRESCRIBED OPIOIDS FOR PAIN: ??? Never take opioids in greater amounts or more often than prescribed. ??? Follow up with your primary health care provider. o Work together to create a plan on how to manage your pain. o Talk about ways to help manage your pain that don???t involve prescription opioids. o Talk about any and all concerns and side effects. ??? Help prevent misuse and abuse o Never sell or share prescription opioids. o Never use another person???s prescription opioids. ??? Store prescription opioids in a secure place and out of reach of others (this may include visitors, children, friends, and family). ??? Safely dispose of unused prescription opioids: Find your community drug take-back program or your pharmacy mail-back program, or flush them down the toilet, following guidance from the Food and Drug Administration (www.fda.gov/Drugs/R esourcesFo (more content not included)... Normal [facility] SEROLOGYOrdered By: Dennis Goodman on 06-30-2024 HCG.beta subunit (U) [Moles/Vol] Negative Normal [facility] Man Sero U BetaHcg Qualon 06-30-2024 HCG.beta subunit (U) [Moles/Vol] Negative Normal [facility] Comment on above: Performed By: #### 2 [id number] #### [facility] [address] [place] [address] UA with Cult Rflxon 06-30-20 24 Bilirubin Ql (U) Negative Normal Negative [facility] Comment on above: Performed By: #### 4 [id number] #### [facility] [address] [place] [address] Clarity (U) Clear Normal Clear [facility] Comment on above: Performed By: #### 4 [id number] #### [facility] [address] [place] [address] Color (U) Light-Yellow Normal Yellow [facility] Comment on above: Result Comment: Micr oscopic readings are only performed on those samples that meet specific criteria set forth by [facility]. Performed By: #### 4 [id number] #### [facility] [address] [place] [address] Glucose Ql (U) Negative Normal Negative [facility] Comment on above: Performed By: #### 4 [id number] #### [facility] [address] [place] [address] Hemoglobin Auto test strip (U) [Mass/Vol] Negative Normal Negative [facility] Comment on above: Performed By: #### 4 [id number] #### [facility] [address] [place] [address] Ketones Auto test strip Ql (U) Negative Normal Negative [facility] Comment on above: Performed By: #### 4 [id number] #### [facility] [address] [place] [address] Leukocyte esterase Auto test strip Ql (U) Negative Normal Negative [facility] Comment on above: Performed By: #### 4 [id number] #### [facility] [address] [place] [address] Nitrite Auto test strip Ql (U) Negative Normal Negative [facility] Comment on above: Performed By: #### 4 [id number] #### [facility] [address] [place] [address] pH (U) 5.5 [pH] Invalid Interpretation Code 5.0-9.0 [facility] Comment on above: Performed By: #### 4 [id number] #### [facility] [address] [place] [address] Protein Ql (U) Negative Normal Negative [facility] Comment on above: Performed By: #### 4 [id number] #### [facility] [address] [place] [address] Specific gravity (U) [Rel density] 1.025 Invalid Interpretation Code 1.005-1.030 [facility] Comment on above: Performed By: #### 4 [id number] #### [facility] [address] [place] [address] Urobilinogen (U) [Mass/Vol] Negative Normal Negative [facility] Comment on above: Performed By: #### 4 [id number] #### [facility] [address] [place] [address] Type of Urine collection method Clean Catch Normal [facility] Comment on above: Performed By: #### 4 [id number] #### [facility] [address] [place] [address] URINALYSISOrdered By: SYSTEM SYSTEM on 06-30-2024 Bilirubin Ql (U) Negative Normal Negativemg/ d L [facility] UA Auto SS Clarity (U) Clear (06/30/24 5:18 PM) Normal Clear [facility] UA Auto SS Color (U) Light-Yellow 1 (06/30/24 5:18 PM) Normal Yellow [facility] UA Auto SS Comment on above: Interpretive Data: M icroscopic readings are only performed on those samples that meet specific criteria set forth by [facility]. Glucose Ql (U) Negative Normal Negativemg/d L [facility] UA Auto SS Hemoglobin Auto test strip (U) [Mass/Vol] Negative Normal Negativemg/d L [facility] UA Auto SS Ketones Auto test strip Ql (U) Negative Normal Negativemg/d L [facility] UA Auto SS Leukocyte esterase Auto test strip Ql (U) Negative Normal NegativeLeu/ uL [facility] UA Auto SS Nitrite Auto test strip Ql (U) Negative Normal Negativemg/d L [facility] UA Auto SS pH (U) 5.5 *NA* (06/30/24 5:18 PM) Invalid Interpretation Code 5.0 - 9.0 [facility] UA Auto SS Protein Ql (U) Negative Normal Negativemg/d L [facility] UA Auto SS Specific gravity (U) [Rel density] 1.025 *NA* (06/30/24 5:18 PM) Invalid Interpretation Code 1.005 - 1.030 [facility] UA Auto SS Urobilinogen (U) [Mass/Vol] Negative Normal Negativemg/d L [facility] UA Auto SS URINALYSISOrdered By: Leny Carpenter on 06-30-2024 UA Spec Desc Clean Catch (06/30/24 5:18 PM) Normal [facility] UA Auto SS HbA1c (Bld) [Mass fraction]o n 04-02-2024 Interpretation and review of laboratory results Normal [facility] - Hematology and Cell countson 04-02-2024 HbA1c (Bld) [Mass fraction] 5.0 % [facility] 36on 11-10-2023 36 I spoke with Sarahy Black with [employer] today, the medication has been denied, it is not covered with the patient's diagnosis. There are 3 diagnosis's that are covered, the patient's diagnosis is not one of them. Denial letter to be faxed and scanned. [facility] 36on 10-13-2023 36 Left a second voicemail for patient requesting a return call regarding appeal [facility] 36on 10-11-2023 36 Received appeal forms, there are a few sections the patient needs to complete before it can be submitted. I called and left a voicemail for Rachid to contact our office. [facility] 36on 10-07-2023 36 Spoke with Radha Smith with [employer], associate customer support. She is faxing forms for the appeal. [phone] Ref# [id number] [facility] 36on 10-06-2023 36 Lisa with [facility] called back, they do not have the appeal forms and recommended starting a new PA. They are unable to start the PA on CMM. PA through [facility]. [facility] 36 [facility] is faxing appeal forms to our office. [facility] Refillon 10-04-2023 Refill [id number] Lesli Mojicaa 1990 F Date Provider Department Center 10/04/2023 SONIYA RANGEL [facility] Family History Family Status - Relation Status Age at Mother Alive Father Alive Reason for Visit and Comments: Med Refill [[id number]] [facility] Orders Onlyon 09-26-2023 Orders Only [id number] Allison Mojicarina 1990 F Date Provider Department Center 09/26/2023 SONIYA RANGEL [facility] ENDO[facility] Family History Family Status - Relation Status Age at Mother Alive Father Alive [facility] Refillon 08-03-2023 Refill [id number] Allison Mojicarina 1990 F Date Provider Department Center 08/03/2023196537705-WMUTIHHKWWLUNA MIRANDA*[facility] END[facility]CR [facility] Family History Family Status - Relation Status Age at Mother Alive Father Alive Reason for Visit and Comments: Med Refill [[id number]] [facility] Orders Onlyon 07-26-2023 Orders Only [id number] Allison Mojicarina 1990 F Date Provider Department Center 07/26/2023 LUNA CASTRO*[facility] Family History Family Status - Relation Status Age at Mother Alive Father Alive [facility] Orders Onlyon 07-12-2023 Orders Only [id number] Rachid Mojica 1990 F Date Provider Department [place] 07/12/2023 SONIYA RANGEL [facility] ENDOCR [facility] Family History Family Status - Relation Status Age at Mother Alive Father Alive [facility] Patient Messageon 07-12-2023 Patient Message [id number] Rachid Mojica 1990 F Date Provider Department [place] 07/12/2023 [id number]-QAZEAETIFFANIE SHETH [facility] SURG Second Fl Chart Close Cosign Required by: Rogerio Quintanilla MD[[id number]] Family History Family Status - Relation Status Age at Mother Alive Father Alive [facility] 36on 07-01-2023 36 [employer] faxed PA denied for Octreotide Acetate on 06/29/2023 [facility] 36on 06-29-2023 36 PA initiated through cover my meds Rachid Mojica (Mares: [id number]) - [id number] Need help? Call us at [facility] The plan will fax you a determination, typically within 1 to 5 business days. How do I follow up? Drug Octreotide Acetate 50MCG/ML solution Form [facility] Follow-Upon 06-27-2023 Follow-Up [id number] Rachid Mojica 1990 F Date Provider Department Center 06/27/2023 SONIYA RANGEL [facility] ENDOCR [facility] Family History Family Status - Relation Status Age at Mother Alive Father Alive Level of Service:41164 ID OFFICE/OUTPATIENT ESTABLISHED MOD MDM 30-39 MIN (GC,25) Reason for Visit and Comments: Follow-up [[id number]] - Patient feels medication still not working. [facility] Patient Messageon 06-20-2023 Patient Message [id number] Rachid Mojica 1990 F Date Provider Department [place] 06/20/2023 SONIYA RANGEL [facility] ENDOCR [facility] Family History Family Status - Relation Status Age at Mother Alive Father Alive [facility] Refillon 06-08-2023 Refill [id number] Nicolas 1990 Date Provider Department Center 06/08/2023 407SONIYA LADD [facility] ENDOCR [facility] Family History Family Status - Relation Status Age at Mother Alive Father Alive Reason for Visit and Comments: Med Refill [[id number]] [facility] Follow-Upon 03-07-2023 Follow-Up [id number] Rachid Mojica 1990 F Date Provider Department Center 03/07/2023 4078-SONIYA RIVERO [facility] ENDOCR [facility] Family History Family Status - Relation Status Age at Mother Alive Father Alive Level of Service:58435 ID OFFICE/OUTPATIENT ESTABLISHED MOD MDM 30-39 MIN (GC) Reason for Visit and Comments: Follow-up [[id number]] [facility] Orders Onlyon 01-06-2023 Orders Only [id number] Nicolas 1990 Date Provider Department [place] 01/06/2023 3240-DIMITRY VARNER [facility] ENDOCR [facility] Family History Family Status - Relation Status Age at Mother Alive Father Alive [facility] 37on 12-27-2022 37 Follow up in 4-6 weeks [facility] Follow-Upon 12-27-2022 Follow-Up [id number] Rachid Mojica 1990 Provider Department Center 12/27/2022 4075-DAVIS DENNIS [facility] ENDOCR [facility] Family History Family Status - Relation Status Age at Mother Alive Father Alive Level of Service:14287 ID OFFICE/OUTPATIENT ESTABLISHED MOD MDM 30-39 MIN (GC) Reason for Visit and Comments: Follow-up [[id number]] - Hypoglycemia [facility] Office Visiton 12-23-2022 Follow-up visit [id number] Rachid Mojica 1990 F Date Provider Department Center 12/23/2022 [id number]-HUTCMDUCWVCASI [facility] Family History Family Status - Relation Status Age at Mother Alive Father Alive Level of Service:13048 ID OFFICE/OUTPATIENT NEW LOW MDM 30-44 MINUTES Reason for Visit and Comments: New Patient [632] - New Patient. Having issues with her sugar. Normal [facility] .UA Microscp Aon 03-29-2021 UA Hyline Cast Qual 0-2 Normal Negative [facility] Comment on above: Performed By: #### C [id number] #### [address] [address] UA Mucus Present Abnormal Absent [facility] Comment on above: Performed By: #### C [id number] #### [address] [address] UA RBC Quant 0 /HPF Normal 0-5 [facility] Comment on above: Performed By: #### C [id number] #### [address] [address] UA Squepi Cells Quant 6 /HPF Normal 0-29 [facility] Comment on above: Performed By: #### C [id number] #### [address] [address] UA WBC Quant 1 /HPF Normal 0-5 [facility] Comment on above: Performed By: #### C [id number] #### [address] [address] .eGFRon 03-29-2021 eGFR Non-AA >60 Normal >=60 [facility] Comment on above: Result Comment: Stag [...] years Performed By: #### E GFR #### [address] [address] eGFR AA >60 Normal >=60 [facility] Comment on above: Result Comment: See comment. Performed By: #### E GFR #### [address] [address] Basic Metabolic Profileon Creatinine [Mass/Vol] 0.90 mg/dL Normal 0.44-1.03 [facility] Comment on above: Performed By: #### C [id number] #### [address] [address] Urea nitrogen [Mass/Vol] 12 mg/dL Normal 8-26 [facility] Comment on above: Performed By: #### C [id number] #### [address] [address] Urea nitrogen/Creatinine [Mass ratio] 13.3 mg/mg Normal 10.0-20.0 [facility] Comment on above: Performed By: #### C [id number] #### [address] [address] Anion gap [Moles/Vol] 13 mmol/L Normal 7-17 [facility] Comment on above: Performed By: #### C [id number] #### [address] [address] Calcium [Mass/Vol] 8.9 mg/dL Normal 8.5-10.3 [facility] Comment on above: Performed By: #### C [id number] #### [address] [address] Chloride [Moles/Vol] 108 mmol/L Normal 98-110 [facility] Comment on above: Performed By: #### C [id number] #### [address] [address] CO2 [Moles/Vol] 19 mmol/L Low 22-32 [facility] Comment on above: Performed By: #### C [id number] #### [address] [address] Glucose [Mass/Vol] 90 mg/dL Normal 70-99 [facility] Comment on above: Performed By: #### C [id number] #### [address] [address] Potassium [Moles/Vol] 3.6 mmol/L Normal 3.4-4.8 [facility] Comment on above: Performed By: #### C [id number] #### [address] [address] Sodium [Moles/Vol] 136 mmol/L Normal 133-142 [facility] Comment on above: Performed By: #### C D:[id number] #### [address] [address] CBC w/ Diffon 03-29-2021 Erythrocyte distribution width (RBC) [Ratio] 12.9 % Normal 11.6-14.8 [facility] Comment on above: Performed By: #### C BC #### [address] [address] Hematocrit (Bld) [Volume fraction] 44.4 % Normal 36.0-46.0 [facility] Comment on above: Performed By: #### C BC #### [address] [address] Hemoglobin (Bld) [Mass/Vol] 15.1 g/dL Normal 12.0-16.0 [facility] Comment on above: Performed By: #### C BC #### [address] [address] MCH (RBC) [Entitic mass] 31.8 pg Normal 27.0-35.0 [facility] Comment on above: Performed By: #### C BC #### [address] [address] MCHC 34.0 % Normal 31.0-37.0 [facility] Comment on above: Performed By: #### C BC #### [address] [address] MCV (RBC) [Entitic vol] 93.4 fL Normal 80.0-100.0 B [facility] Comment on above: Performed By: #### C BC #### [address] [address] Platelet 190 x10*3/mcL Normal 150-350 [facility] Comment on above: Performed By: #### C BC #### [address] [address] Platelet mean volume (Bld) [Entitic vol] 8.7 fL Normal 6.7-10.6 [facility] Comment on above: Performed By: #### C BC #### [address] [address] RBC 4.75 x10*6/mcL Normal 3.80-5.20 [facility] Comment on above: Performed By: #### C BC #### [address] [address] WBC 9.5 x10*3/mcL Normal 4.5-11.0 [facility] Comment on above: Performed By: #### C BC #### [address] [address] CRPon 03-29-2021 CRP [Mass/Vol] mg/L Normal 0.00-0.75 [facility] Comment on above: Result Comment: CRP measurement is useful for assessment of non-specific INFLAMMATORY RESPONSE to infection or injury AND is a sensitive MARKER of ACUTE INFLAMMATION including CARDIAC RISK ASSESSMENT. CARDIAC patients with elevated CRP are POTENTIALLY at a HIGHER RISK OF FUTURE CARDIAC EVENTS. Performed By: #### C RP #### [address] [address] [address] Abdomen Pelvis w/ IV Cont raston [...] partial bowel resection, hysterectomy. Radiation Dose Estimate: CTDI(mGy):0.543765 / / / kVp:120.564558 / mAs:0.040621 / / / DLP(mGy-cm):4.941435 Body Part: Abdomen CTDI(mGy):11.946930 / / / kVp:100.888521 / mAs:158.445273 / / / DLP(mGy-cm):553.7199 71Body Part: Abdomen Final Dictated by: Justino Whitman MD Dictated DT/TM: 03.29.2021 4:30 pm Signed by: Justino Whitman MD Signed (Electronic Signature): 03.29.2021 4:44 pm Transcribed DT/TM: 03.29.2021 4:42 pm (If Report Is Signed, Electronically Signed in Other Vendor System) Normal [facility] Diff Autoon 03-29-2021 Baso Absolute 0.0 x10*3/mcL Normal 0.0-0.2 [facility] Comment on above: Performed By: #### . Automated Diff #### [address] [address] Basophils/100 WBC (Bld) 0.5 % Normal 0.0-1.5 B [facility] Comment on above: Performed By: #### . Automated Diff #### [address] [address] Eos Absolute 0.1 x10*3/mcL Normal 0.0-0.4 [facility] Comment on above: Performed By: #### . Automated Diff #### [address] [address] Eosinophils/100 WBC (Bld) 1.3 % Normal 0.0-5.4 [facility] Comment on above: Performed By: #### . Automated Diff #### [address] [address] Lymph Absolute 5.2 x10*3/mcL High 1.0-4.8 [facility] Comment on above: Performed By: #### . Automated Diff #### [address] [address] Lymphocytes/100 WBC (Bld) 54.8 % High 27.2-40.8 [facility] Comment on above: Performed By: #### . Automated Diff #### [address] [address] Yancey Absolute 0.7 x10*3/mcL Normal 0.1-1.1 [facility] Comment on above: Performed By: #### . Automated Diff #### [address] [address] Monocytes/100 WBC (Bld) 7.3 % Normal 3.7-11.9 B [facility] Comment on above: Performed By: #### . Automated Diff #### [address] [address] Neutro Absolute 3.4 x10*3/mcL Normal 1.8-7.7 [facility] Comment on above: Performed By: #### . Automated Diff #### [address] [address] Neutro Auto 36.1 % Low 47.2-70.8 [facility] Comment on above: Performed By: #### . Automated Diff #### [address] [address] ED Clinical Summaryon 2020 ED Clinical Summary [place] [id number] ED Clinical Summary Person Information Name: Rachid Mojica/[facility] Age: 30 Years : 1990 Sex: Female PCP: Marital Status: Phone: Race: White Ethnicity: Not or Language: [place] Visit Reason: Abdominal pain; Abdominal pain Acuity: 3 Enc Type: Emergency Med Service: Emergency Medicine Arrival: 03/29/2021 11:50:50 Discharge: 03/29/2021 18:01:00 LOS: 000 06:11 Checkin: 03/29/2021 11:50:50 Checkout: 03/29/2021 18:01:00 Dispo Type: Home or Self Care Address: [address] [place] [id number] Provider Notes: Diagnosis: 1:RLQ abdominal pain; 2:Endometriosis; [...] range between ( 27.2 and 40.8 ) Yancey Auto: 7.3 % -- Normal range between [...] range between ( 36.0 and 46.0 ) Yancey Absolute: 0.7 x10 MCH: 31.8 pg -- [...] New Medications [address] [place], [place] [id number], [phone] hydrocodone-acetamin ophen (Lane 5 mg-325 mg oral tablet) 1 Tabs Oral (given by mouth) every 6 hours as needed as needed for pain for 3 Days. Refills: 0. Last Dose: ibuprofen (ibuprofen 800 mg oral tablet) 1 Tabs Oral (given by mouth) 3 times a day as needed for pain. Refills: 0. Last Dose: (more content not included)... Normal [facility] ED Note-Physicianon 03-29-20 ED Note-Physician Chief [...] available (MRI) Aundrea Lewis Normal [facility] Hep Func Panelon 03-29-2021 Albumin [Mass/Vol] 4.2 g/dL Normal 3.2-4.9 [facility] Comment on above: Performed By: #### L IVER #### [address] [address] Alk Phos 48 IU/L Normal 32-91 [facility] Comment on above: Performed By: #### L IVER #### [address] [address] ALT [Catalytic activity/Vol] 25 U/L Normal 14-54 [facility] Comment on above: Performed By: #### L IVER #### [address] [address] AST [Catalytic activity/Vol] 26 U/L Normal 15-41 [facility] Comment on above: Performed By: #### L IVER #### [address] [address] Bili Direct 0.2 mg/dL Normal 0.1-0.5 [facility] Comment on above: Performed By: #### L IVER #### [address] [address] Bili Indirect 0.6 mg/dL Normal 0.0-1.0 [facility] Comment on above: Performed By: #### L IVER #### [address] [address] Bili Total 0.8 mg/dL Normal 0.3-1.2 [facility] Comment on above: Performed By: #### L IVER #### [address] [address] Protein [Mass/Vol] 7.3 g/dL Normal 6.5-8.1 [facility] Comment on above: Performed By: #### L IVER #### [address] [address] Lipaseon 03-29-2021 Lipase Lvl 29 IU/L Normal 22-51 [facility] Comment on above: Performed By: #### L IP #### [address] [address] UA w Culture if Indon 2020 Color (U) Yellow Normal [facility] Comment on above: Performed By: #### U CI #### [address] [address] Ketones Ql (U) Negative Normal Negative [facility] Comment on above: Performed By: #### U CI #### [address] [address] UA Blood Negative Normal Negative [facility] Comment on above: Performed By: #### U CI #### [address] [address] UA Clarity Clear Normal [facility] Comment on above: Performed By: #### U CI #### [address] [address] UA Glucose Normal Normal Negative [facility] Comment on above: Performed By: #### U CI #### [address] [address] UA Leukocyte Esterase Negative Normal Negative [facility] Comment on above: Performed By: #### U CI #### [address] [address] UA Nitrite Negative Normal Negative [facility] Comment on above: Performed By: #### U CI #### [address] [address] UA pH 5.5 Normal 4.5 - 7.8 [facility] Comment on above: Performed By: #### U CI #### [address] [address] UA Protein 10 mg/dL Normal Negative [facility] Comment on above: Performed By: #### U CI #### [address] [address] UA Source Clean Catch Normal [facility] Comment on above: Performed By: #### U CI #### [address] [address] UA Spec Grav 1.027 Normal 1.003-1.035 [facility] Comment on above: Performed By: #### U CI #### [address] [address] UA Urobilinogen Normal Normal 0.2 - 1.0 [facility] Comment on above: Performed By: #### U CI #### [address] [address] Urobilinogen (U) [Mass/Vol] Negative Normal Negative [facility] Comment on above: Performed By: #### U CI #### [address] [address] US Transvaginal w/ Duplexon 03-29-2021 US Transvaginal [...] in Other Vendor System) Normal [facility] Surgical Pathologyon 020 Surgical Pathology (NOTE) [...] SURGICAL PATHOLOGY CONSULTATION Patient Name: RACHID MOJICA [facility] Rec: [id number] Path Number: [id number] [facility] ANATOMIC PATHOLOGY [address] [place] [phone] Normal [facility] Comment on above: Performed By: #### P PPVS #### [address] [address] Frame Polisher: John Yancey MD COVID-19 Ambulatoryon 2019 SARS-CoV-2, MILLICENT Not Detected Not Detected [facility], [place] Comment on above: (NOTE) This test was developed and its performance characteristics determined by [facility]. This test has not been FDA cleared [...] detected) result in this assay. Performed At: [facility] [address] [place], [place] [id number] Melly Butler MD Ph:[phone] [id number] 01-02-2020 SARS-CoV-2 Not Detected Normal Not Detected [facility] Comment on above: Result Comment: (NOT E) This test was developed and its performance characteristics determined by [facility]. This test has not been FDA cleared [...] detected) result in this assay. Performed At: [facility] [address] [facility] [place] [id number] Melly Butler MD Ph:[phone] Performed By: #### C DP, CP, LIP #### [facility] [address] [place] [address] Frame Polisher: Kd Page MD Basic Metab w/rfx MGon 12-15 (cont.) Normal [facility] Comment on above: Result Comment: Aver age GFR for 30-39 years old: 107 mL/min/1.73sq m Chronic Kidney Disease: <60 mL/min/1.73sq m Kidney failure: <15 mL/min/1.73sq m eGFR calculated using average adult body mass. Additional eGFR calculator available at: http://www.BrightRoll/multiple_crcl_2011.htm Performed By: #### C DP, BMPX #### [address] [address] Frame Polisher: John Yancey MD Anion gap [Moles/Vol] 13 mmol/L Normal 9-17 [facility] Comment on above: Performed By: #### C DP, BMPX #### [address] [address] Frame Polisher: John Yancey MD Calcium [Mass/Vol] 8.5 mg/dL Low 8.6-10.4 [facility] Comment on above: Performed By: #### C DP, BMPX #### [address] [address] Frame Polisher: John Yancey MD Chloride [Moles/Vol] 103 mmol/L Normal 98-107 [facility] Comment on above: Performed By: #### C DP, BMPX #### [address] [address] Frame Polisher: John Yancey MD CO2 [Moles/Vol] 21 mmol/L Normal 20-31 [facility] Comment on above: Performed By: #### C DP, BMPX #### [address] [address] Frame Polisher: John Yancey MD Creatinine [Mass/Vol] 0.55 mg/dL Normal 0.50-0.90 [facility] Comment on above: Performed By: #### C DP, BMPX #### [address] [address] Frame Polisher: John Yancey MD GFR, Amer >60 Normal >60 [facility] Comment on above: Performed By: #### C DP, BMPX #### [address] [address] Frame Polisher: John Yancey MD GFR,non Amer >60 Normal >60 [facility] Comment on above: Performed By: #### C DP, BMPX #### [address] [address] Frame Polisher: John Yancey MD Glucose [Mass/Vol] 83 mg/dL Normal 70-99 [facility] Comment on above: Performed By: #### C DP, BMPX #### [address] [address] Frame Polisher: John Yancey MD Potassium [Moles/Vol] 3.8 mmol/L Normal 3.7-5.3 [facility] Comment on above: Performed By: #### C DP, BMPX #### [address] [address] Frame Polisher: John Yancey MD Sodium [Moles/Vol] 137 mmol/L Normal 135-144 [facility] Comment on above: Performed By: #### C DP, BMPX #### [facility] [address] [place] [address] Frame Polisher: John Yancey MD Urea nitrogen [Mass/Vol] 9 mg/dL Normal 6-20 [facility] Comment on above: Performed By: #### C DP, BMPX #### [facility] [address] [place], [place] [phone] Frame Polisher: John Yancey MD Staging: NOT REPORTED Normal [facility] Comment on above: Performed By: #### C DP, BMPX #### [facility] [address] [place], [place] [phone] Frame Polisher: John Yancey MD Bun/Cre Ratio NOT REPORTED Normal 9-20 [place], [place] Comment on above: Performed By: #### C DP, BMPX #### [facility] [address] [place], [place] [phone] Frame Polisher: John Yancey MD Basic Metabolic Panel w/ Ref devendra to [facility] 12-16-2019 Anion gap [Moles/Vol] 13 mmol/L 9 - 17 mmol/L [place] Calcium [Mass/Vol] 8.5 mg/dL Low 8.6 - 10. 4 mg/dL [place] Chloride [Moles/Vol] 103 mmol/L 98 - 10 7 mmol/L [place] CO2 [Moles/Vol] 21 mmol/L 20 - 31 mmol/L [place] Creatinine [Mass/Vol] 0.55 mg/dL 0.5 - 0.9 mg/dL [place] GFR >60 >60 mL/min [place], [place] GFR Non- >60 >60 mL/min [place] GFR/1.73 sq M predicted among non-blacks MDRD (S/P/Bld) [Vol rate/Area] [place] Comment on above: Average GFR for 30-3 9 years old: 107 mL/min/1.73sq m Chronic Kidney Disease: <60 mL/min/1.73sq m Kidney failure: <15 mL/min/1.73sq m eGFR calculated using average adult body mass. Additional eGFR calculator available at: http://www.[employer]/multiple_crcl_2012.htm GFR/1.73 sq M predicted among non-blacks MDRD (S/P/Bld) [Vol rate/Area] NOT REPORTED [place] Glucose [Mass/Vol] 83 mg/dL 70 - 99 mg/dL [place] Interpretation and review of laboratory results Abnormal [place] Potassium [Moles/Vol] 3.8 mmol/L 3.7 - 5.3 mmol/L [place] Sodium [Moles/Vol] 137 mmol/L 135 - 144 mmol/L [place] Urea nitrogen [Mass/Vol] 9 mg/dL 6 - 20 mg/dL [place] CBC auto differentialon 05-2 -2019 Basophils (Bld) [#/Vol] 0.05 10*3/uL [place] Basophils/100 WBC (Bld) 1 % 0 - 2 % [place] Differential Type NOT REPORTED [place] Eosinophils (Bld) [#/Vol] 0.26 10*3/uL [place] Eosinophils/100 WBC (Bld) 5 % High 1 - 4 % [place] Erythrocyte distribution width (RBC) [Ratio] 12.2 % 11.8 - 14.4 % [place] Hematocrit (Bld) [Volume fraction] 41.6 % 36.3 - 47.1 % [place] Hemoglobin (Bld) [Mass/Vol] 13.5 g/dL 11.9 - 15.1 g/dL [place] Immature granulocytes (Bld) [#/Vol] 0 % 0 [place] Immature granulocytes (Bld) [#/Vol] 10*3/uL [place] Interpretation and review of laboratory results Abnormal [place] Lymphocytes (Bld) [#/Vol] 2.38 10*3/uL [place] Lymphocytes/100 WBC (Bld) 41 % 24 - 43 % [place] MCH (RBC) [Entitic mass] 31.0 pg 25.2 - 33.5 pg [place] MCHC (RBC) [Mass/Vol] 32.5 g/dL 28.4 - 34.8 g/dL [place] MCV (RBC) [Entitic vol] 95.4 fL 82.6 - 102.9 fL [place] Monocytes (Bld) [#/Vol] 0.51 10*3/uL [place] Monocytes/100 WBC (Bld) 9 % 3 - 12 % [place] Platelet mean volume (Bld) [Entitic vol] 10.6 fL 8.1 - 13.5 fL [place] Platelets (Bld) [#/Vol] 154 10*3/uL [place] RBC (Bld) [#/Vol] 4.36 10*6/uL 3.95 - 5.1 1 m/uL [place] Segmented neutrophils/100 WBC (Bld) 44 % 36 - 65 % [place] Segs Absolute 2.54 [place] WBC (Bld) [#/Vol] 0.0 10*3/uL 0.0 per 10 0 WBC [place] WBC (Bld) [#/Vol] 5.8 10*3/uL [place] CBC with Diffon 12-16-2019 Abs. Basophil 0.05 k/uL Normal 0.00-0.20 [facility] Comment on above: Performed By: #### C DP, BMPX #### [facility] [address] [place] [address] Frame Polisher: John Yancey MD Abs.Imm.Granulocyte <0.03 Normal 0.00-0.30 [facility] Comment on above: Performed By: #### C DP, BMPX #### [facility] [address] [place] [address] Frame Polisher: John Yancey MD Abs.Neutrophil (Seg) 2.54 k/uL Normal 1.50-8.10 [facility] Comment on above: Performed By: #### C DP, BMPX #### [facility] [address] [place] [address] Frame Polisher: John Yancey MD Basophils/100 WBC (Bld) 1 % Normal 0-2 [facility] Comment on above: Performed By: #### C DP, BMPX #### [address] [address] Frame Polisher: John Yancey MD Eosinophils (Bld) [#/Vol] 0.26 10*3/uL Normal 0.00-0.44 [facility] Comment on above: Performed By: #### C DP, BMPX #### [address] [address] Frame Polisher: John Yancey MD Eosinophils/100 WBC (Bld) 5 % High 1-4 [facility] Comment on above: Performed By: #### C DP, BMPX #### [address] [address] Frame Polisher: John Yancey MD Erythrocyte distribution width (RBC) [Ratio] 12.2 % Normal 11.8-14.4 [facility] Comment on above: Performed By: #### C DP, BMPX #### [address] [address] Frame Polisher: John Yancey MD Hematocrit (Bld) [Volume fraction] 41.6 % Normal 36.3-47.1 [facility] Comment on above: Performed By: #### C DP, BMPX #### [address] [address] Frame Polisher: John Yancey MD Hemoglobin (Bld) [Mass/Vol] 13.5 g/dL Normal 11.9-15.1 [facility] Comment on above: Performed By: #### C DP, BMPX #### [address] [address] Frame Polisher: John Yancey MD Immature granulocytes (Bld) [#/Vol] 0 % Normal 0 [facility] Comment on above: Performed By: #### C DP, BMPX #### [address] [address] Frame Polisher: John Yancey MD Lymphocytes (Bld) [#/Vol] 2.38 10*3/uL Normal 1.10-3.70 [facility] Comment on above: Performed By: #### C DP, BMPX #### [address] [address] Frame Polisher: John Yancey MD Lymphocytes/100 WBC (Bld) 41 % Normal 24-43 [facility] Comment on above: Performed By: #### C DP, BMPX #### [place] [address] Frame Polisher: John Yancey MD MCH (RBC) [Entitic mass] 31.0 pg Normal 25.2-33.5 [facility] Comment on above: Performed By: #### C DP, BMPX #### [place] [address] Frame Polisher: John Yancey MD MCHC (RBC) [Mass/Vol] 32.5 g/dL Normal 28.4-34.8 [facility] Comment on above: Performed By: #### C DP, BMPX #### [place] [address] Frame Polisher: John Yancey MD MCV (RBC) [Entitic vol] 95.4 fL Normal 82.6-102.9 [facility] Comment on above: Performed By: #### C DP, BMPX #### [address] [address] Frame Polisher: John Yancey MD Monocytes (Bld) [#/Vol] 0.51 10*3/uL Normal 0.10-1.20 [facility] Comment on above: Performed By: #### C DP, BMPX #### [address] [address] Frame Polisher: John Yancey MD Monocytes/100 WBC (Bld) 9 % Normal 3-12 [facility] Comment on above: Performed By: #### C DP, BMPX #### [place] [address] Frame Polisher: John Yancey MD Neutrophil (Seg) 44 % Normal 36-65 [facility] Comment on above: Performed By: #### C DP, BMPX #### [place] [address] Frame Polisher: John Yancey MD NRBC Automated 0.0 per 100 WBC Normal 0.0 [facility] Comment on above: Performed By: #### C DP, BMPX #### [place] [address] Frame Polisher: John Yancey MD Platelet mean volume (Bld) [Entitic vol] 10.6 fL Normal 8.1-13.5 [facility] Comment on above: Performed By: #### C DP, BMPX #### [place] [address] Frame Polisher: John Yancey MD Platelets (Bld) [#/Vol] 154 10*3/uL Normal 138-453 [facility] Comment on above: Performed By: #### C DP, BMPX #### [place] [address] Frame Polisher: John Yancey MD RBC (Bld) [#/Vol] 4.36 10*6/uL Normal 3.95-5.11 [facility] Comment on above: Performed By: #### C DP, BMPX #### [facility] [address] [address] Frame Polisher: John Yancey MD WBC (Bld) [#/Vol] 5.8 10*3/uL Normal 3.5-11.3 [facility] Comment on above: Performed By: #### C DP, BMPX #### [address] [address] Frame Polisher: John Yancey MD Auto Diff Performed NOT REPORTED Normal [facility] Comment on above: Performed By: #### C DP, BMPX #### [address] [address] Frame Polisher: John Yancey MD Platelets (Bld) [#/Vol] NOT REPORTED Normal [facility], [place] Comment on above: Performed By: #### C DP, BMPX #### [address] [address] Frame Polisher: John Yancey MD RBC morphology finding Nom (Bld) NOT REPORTED Normal [facility], [place] Comment on above: Performed By: #### C DP, BMPX #### [address] [address] Frame Polisher: John Yancey MD WBC Morphology NOT REPORTED Normal [facility], [place] Comment on above: Performed By: #### C DP, BMPX #### [address] [address] Frame Polisher: John Yancey MD COVID-19on 12-16-2019 SARS-CoV-2 Not Detected Not Detected [facility], [place] Comment on above: The specimen is NEGATIVE for SARS-CoV-2, the novel coronavirus associated with COVID-19. A negative result does not rule out COVID-19. This test has been authorized by the FDA under an Emergency Use Authorization (EUA) for use by authorized laboratories. Fact sheet for Healthcare Providers: https://www.fda.gov/media/097740/download Fact sheet for Patients: https://www.fda.gov/media/974805/download METHODOLOGY: RT-PCR SARS-CoV-2, PCR [facility], [place] SARS-CoV-2, Rapid [facility] [place] Source .NASOPHARYNGEAL SWAB [place], [place] [id number] 12-16-2019 SARS-CoV-2 Normal [facility] Comment on above: Performed By: #### C OVID #### [facility] [place], [place] [phone] Frame Polisher: John Yancey MD SARS-CoV-2,Rapid [facility] Comment on above: Performed By: #### C OVID #### [address] [id number] Frame Polisher: John Yancey MD SARS-CoV-2 Not Detected Normal NOTDET [facility] Comment on above: Result Comment: The specimen is NEGATIVE for SARS-CoV-2, the novel coronavirus associated with COVID-19. A negative result does not rule out COVID-19. This test has been authorized by the FDA under an Emergency Use Authorization (EUA) for use by authorized laboratories. Fact sheet for Healthcare Providers: https://www.fda.gov/media/388529/download Fact sheet for Patients: https://www.fda.gov/media/590941/download METHODOLOGY: RT-PCR Performed By: #### C OVID #### [address] [id number] Frame Polisher: John Yancey MD XR ABDOMEN (KUB) (SINGLE [...] Vail Jr., DO 12/16/19 Final result Normal [facility] EXAMINATION: ONE SUPINE XRAY VIEW(S) OF [...] region. Osseous structures demonstrate no acute findings. [place] No acute intra-abdominal process. Oral contrast is seen throughout the colon. [place], [facility] Incoming Radiant Results From [employer] - 12/16/2019 7:26 AM EDT EXAMINATION: ONE [...] Oral contrast is seen throughout the colon. [place] CBC WITH AUTO DIFFERENTIALon 12-15-2019 Basophils (Bld) [#/Vol] 0.06 10*3/uL [place] Basophils/100 WBC (Bld) 1 % 0 - 2 % [place] Differential Type NOT REPORTED [place] Eosinophils (Bld) [#/Vol] 0.24 10*3/uL [place] Eosinophils/100 WBC (Bld) 4 % 1 - 4 % [place] Erythrocyte distribution width (RBC) [Ratio] 12.5 % 11.8 - 14.4 % [place] Hematocrit (Bld) [Volume fraction] 45.7 % 36.3 - 47.1 % [place] Hemoglobin (Bld) [Mass/Vol] 14.5 g/dL 11.9 - 15.1 g/dL [place] Immature granulocytes (Bld) [#/Vol] 0 % 0 [place] Immature granulocytes (Bld) [#/Vol] 10*3/uL [place] Lymphocytes (Bld) [#/Vol] 2.47 10*3/uL [place] Lymphocytes/100 WBC (Bld) 37 % 24 - 43 % [place] MCH (RBC) [Entitic mass] 30.4 pg 25.2 - 33.5 pg [place] MCHC (RBC) [Mass/Vol] 31.7 g/dL 28.4 - 34.8 g/dL [place] MCV (RBC) [Entitic vol] 95.8 fL 82.6 - 102.9 fL [place] Monocytes (Bld) [#/Vol] 0.52 10*3/uL [place] Monocytes/100 WBC (Bld) 8 % 3 - 12 % [place] Platelet mean volume (Bld) [Entitic vol] 10.8 fL 8.1 - 13.5 fL [place] Platelets (Bld) [#/Vol] NOT REPORTED [place] Platelets (Bld) [#/Vol] 176 10*3/uL [place] RBC (Bld) [#/Vol] 4.77 10*6/uL 3.95 - 5.1 1 m/uL [place] RBC morphology finding Nom (Bld) NOT REPORTED [place] Segmented neutrophils/100 WBC (Bld) 50 % 36 - 65 % [place] Segs Absolute 3.38 [place] WBC (Bld) [#/Vol] 0.0 10*3/uL 0.0 per 10 0 WBC [place] WBC (Bld) [#/Vol] 6.7 10*3/uL [place] WBC Morphology NOT REPORTED [place], [place] CBC with Diffon 12-15-2019 Abs. Basophil 0.06 k/uL Normal 0.00-0.20 [facility] Comment on above: Performed By: #### C DP, CP, LIP #### [place] [address] Frame Polisher: John Yancey MD Abs.Imm.Granulocyte <0.03 Normal 0.00-0.30 [facility] Comment on above: Performed By: #### C DP, CP, LIP #### [place] [address] Frame Polisher: John Yancey MD Abs.Neutrophil (Seg) 3.38 k/uL Normal 1.50-8.10 [facility] Comment on above: Performed By: #### C DP, CP, LIP #### [place] [address] Frame Polisher: John Yancey MD Basophils/100 WBC (Bld) 1 % Normal 0-2 [facility] Comment on above: Performed By: #### C DP, CP, LIP #### [place] [address] Frame Polisher: John Yancey MD Eosinophils (Bld) [#/Vol] 0.24 10*3/uL Normal 0.00-0.44 [facility] Comment on above: Performed By: #### C DP, CP, LIP #### [address] [address] Frame Polisher: John Yancey MD Eosinophils/100 WBC (Bld) 4 % Normal 1-4 [facility] Comment on above: Performed By: #### C DP, CP, LIP #### [address] [address] Frame Polisher: John Yancey MD Erythrocyte distribution width (RBC) [Ratio] 12.5 % Normal 11.8-14.4 [facility] Comment on above: Performed By: #### C DP, CP, LIP #### [address] [address] Frame Polisher: John Yancey MD Hematocrit (Bld) [Volume fraction] 45.7 % Normal 36.3-47.1 [facility] Comment on above: Performed By: #### C DP, CP, LIP #### [address] [address] Frame Polisher: John Yancey MD Hemoglobin (Bld) [Mass/Vol] 14.5 g/dL Normal 11.9-15.1 [facility] Comment on above: Performed By: #### C DP, CP, LIP #### [address] [address] Frame Polisher: John Yancey MD Immature granulocytes (Bld) [#/Vol] 0 % Normal 0 [facility] Comment on above: Performed By: #### C DP, CP, LIP #### [address] [address] Frame Polisher: John Yancey MD Lymphocytes (Bld) [#/Vol] 2.47 10*3/uL Normal 1.10-3.70 [facility] Comment on above: Performed By: #### C DP, CP, LIP #### [facility] [address] [place] [address] Frame Polisher: John Yancey MD Lymphocytes/100 WBC (Bld) 37 % Normal 24-43 [facility] Comment on above: Performed By: #### C DP, CP, LIP #### [address] [address] Frame Polisher: John Yancey MD MCH (RBC) [Entitic mass] 30.4 pg Normal 25.2-33.5 [facility] Comment on above: Performed By: #### C DP, CP, LIP #### [place] [address] Frame Polisher: John Yancey MD MCHC (RBC) [Mass/Vol] 31.7 g/dL Normal 28.4-34.8 [facility] Comment on above: Performed By: #### C DP, CP, LIP #### [place] [address] Frame Polisher: John Yancey MD MCV (RBC) [Entitic vol] 95.8 fL Normal 82.6-102.9 [facility] Comment on above: Performed By: #### C DP, CP, LIP #### [place] [address] Frame Polisher: John Yancey MD Monocytes (Bld) [#/Vol] 0.52 10*3/uL Normal 0.10-1.20 [facility] Comment on above: Performed By: #### C DP, CP, LIP #### [place] [address] Frame Polisher: John Yancey MD Monocytes/100 WBC (Bld) 8 % Normal 3-12 [facility] Comment on above: Performed By: #### C DP, CP, LIP #### [place] [address] Frame Polisher: John Yancey MD Neutrophil (Seg) 50 % Normal 36-65 [facility] Comment on above: Performed By: #### C DP, CP, LIP #### [address] [address] Frame Polisher: John Yancey MD NRBC Automated 0.0 per 100 WBC Normal 0.0 [facility] Comment on above: Performed By: #### C DP, CP, LIP #### [address] [address] Frame Polisher: John Yancey MD Platelet mean volume (Bld) [Entitic vol] 10.8 fL Normal 8.1-13.5 [facility] Comment on above: Performed By: #### C DP, CP, LIP #### [address] [address] Frame Polisher: John Yancey MD Platelets (Bld) [#/Vol] 176 10*3/uL Normal 138-453 [facility] Comment on above: Performed By: #### C DP, CP, LIP #### [address] [address] Frame Polisher: John Yancey MD RBC (Bld) [#/Vol] 4.77 10*6/uL Normal 3.95-5.11 [facility] Comment on above: Performed By: #### C DP, CP, LIP #### [address] [address] Frame Polisher: John Yancey MD WBC (Bld) [#/Vol] 6.7 10*3/uL Normal 3.5-11.3 [facility] Comment on above: Performed By: #### C DP, CP, LIP #### [address] [address] [address] Frame Polisher: John Yancey MD Auto Diff Performed NOT REPORTED Normal [facility] Comment on above: Performed By: #### C DP, CP, LIP #### [facility] [address] [place] [phone] Frame Polisher: John Yancey MD Platelets (Bld) [#/Vol] NOT REPORTED Normal [facility] Comment on above: Performed By: #### C DP, CP, LIP #### [facility] [address] [place] [address] Frame Polisher: John Yancey MD RBC morphology finding Nom (Bld) NOT REPORTED Normal [facility] Comment on above: Performed By: #### C DP, CP, LIP #### [facility] [address] [place] [phone] Frame Polisher: John Yancey MD WBC Morphology NOT REPORTED Normal [facility] Comment on above: Performed By: #### C DP, CP, LIP #### [facility] [address] [place] [phone] Frame Polisher: John Yancey MD CT ABDOMEN PELVIS W [...] Héctor Ramos MD 12/15/19 Final result Normal [facility] CT ABDOMEN PELVIS W IV CONTR [...] Bones/Soft Tissues: No acute osseous abnormality identified. [employer] [place], [place] Long segment small bowel jejunal intussusception near the anastomosis. Fecalization in this area is noted consistent with stasis and there is mild upstream small bowel distension. [facility]SA[facility]LEAndela [place] Abner, Mhpn Incoming Radiant Results From [employer] - 12/15/2019 6:56 PM EDT EXAMINATION: CT [...] there is mild upstream small bowel distension. [facility], [place] Comp Metabolic Profon 2019 (cont.) Normal [facility] Comment on above: Result Comment: Aver age GFR for 30-39 years old: 107 mL/min/1.73sq m Chronic Kidney Disease: <60 mL/min/1.73sq m Kidney failure: <15 mL/min/1.73sq m eGFR calculated using average adult body mass. Additional eGFR calculator available at: http://www.BrightRoll/multiple_crcl_2012.htm Performed By: #### C JP ENGLISH, LIP #### [facility] [address] [place] [address] Frame Polisher: John Yancey MD Albumin [Mass/Vol] 4.0 g/dL Normal 3.5-5.2 [facility] Comment on above: Performed By: #### C JP ENGLISH, LIP #### [address] [address] Frame Polisher: John Yancey MD Albumin/Globulin [Mass ratio] 1.6 {ratio} Normal 1.0-2.5 [facility] Comment on above: Performed By: #### C JP ENGLISH, LIP #### [facility] [address] [place] [address] Frame Polisher: John Yancey MD Alkaline Phos 66 U/L Normal 35-104 [facility] Comment on above: Performed By: #### C TAMEKA CP, LIP #### [facility] [address] [place] [address] Frame Polisher: John Yancey MD ALT [Catalytic activity/Vol] 23 U/L Normal 5-33 [facility] Comment on above: Performed By: #### C DP, CP, LIP #### [address] [address] Frame Polisher: John Yancey MD Anion gap [Moles/Vol] 8 mmol/L Low 9-17 [facility] Comment on above: Performed By: #### C DP, CP, LIP #### [address] [address] Frame Polisher: John Yancey MD AST [Catalytic activity/Vol] 23 U/L Normal <32 [facility] Comment on above: Performed By: #### C DP, CP, LIP #### [address] [address] Frame Polisher: John Yancey MD Bilirubin Ql (U) 0.19 mg/dL Low 0.3-1.2 [facility] Comment on above: Performed By: #### C DP, CP, LIP #### [address] [address] Frame Polisher: John Yancey MD Calcium [Mass/Vol] 9.1 mg/dL Normal 8.6-10.4 [facility] Comment on above: Performed By: #### C DP, CP, LIP #### [address] [address] Frame Polisher: John Yancey MD Chloride [Moles/Vol] 107 mmol/L Normal 98-107 [facility] Comment on above: Performed By: #### C DP, CP, LIP #### [address] [address] Frame Polisher: John Yancey MD CO2 [Moles/Vol] 25 mmol/L Normal 20-31 [facility] Comment on above: Performed By: #### C DP, CP, LIP #### [address] [address] Frame Polisher: John Yancey MD Creatinine [Mass/Vol] 0.59 mg/dL Normal 0.50-0.90 [facility] Comment on above: Performed By: #### C DP, CP, LIP #### [address] [address] Frame Polisher: John Yancey MD GFR, Amer >60 Normal >60 [facility] Comment on above: Performed By: #### C DP, CP, LIP #### [address] [address] Frame Polisher: John Yancey MD GFR,non Amer >60 Normal >60 [facility] Comment on above: Performed By: #### C DP, CP, LIP #### [address] [address] Frame Polisher: John Yancey MD Glucose [Mass/Vol] 81 mg/dL Normal 70-99 [facility] Comment on above: Performed By: #### C DP, CP, LIP #### [address] [address] Frame Polisher: John Yancey MD Potassium [Moles/Vol] 4.6 mmol/L Normal 3.7-5.3 [facility] Comment on above: Performed By: #### C DP, CP, LIP #### [address] [address] Frame Polisher: John Yancey MD Protein [Mass/Vol] 6.5 g/dL Normal 6.4-8.3 [facility] Comment on above: Performed By: #### C DP, CP, LIP #### [address] [address] Frame Polisher: John Yancey MD Sodium [Moles/Vol] 140 mmol/L Normal 135-144 [facility] Comment on above: Performed By: #### C DP, CP, LIP #### [facility] [address] [place] [address] Frame Polisher: John Yancey MD Urea nitrogen [Mass/Vol] 9 mg/dL Normal 6-20 [facility] Comment on above: Performed By: #### C DP, CP, LIP #### [facility] [address] [place] [address] Frame Polisher: John Yancey MD BUN/CRE Ratio NOT REPORTED Normal -20 [facility] Comment on above: Performed By: #### C DP, CP, LIP #### [facility] [address] [place] [address] Frame Polisher: John Yancey MD Staging: NOT REPORTED Normal [facility] Comment on above: Performed By: #### C DP, CP, LIP #### [facility] [address] [place] [address] Frame Polisher: John Yancey MD Comprehensive Metabolic Pane [facility] 12-15-2019 Albumin [Mass/Vol] 4 g/dL 3.5 - 5.2 g/dL [place], [place] Albumin/Globulin [Mass ratio] 1.6 {ratio} [place] ALP [Catalytic activity/Vol] 66 U/L 35 - 104 U/L [place] ALT [Catalytic activity/Vol] 23 U/L 5 - 33 U/L [place] Anion gap [Moles/Vol] 8 mmol/L Low 9 - 17 mmol/L [place] AST [Catalytic activity/Vol] 23 U/L <32 [place] Bilirubin Ql (U) 0.19 mg/dL Low 0.3 - 1.2 mg/dL [place] Bun/Cre Ratio NOT REPORTED [place], [place] Calcium [Mass/Vol] 9.1 mg/dL 8.6 - 10. 4 mg/dL [place] Chloride [Moles/Vol] 107 mmol/L 98 - 10 7 mmol/L [place] CO2 [Moles/Vol] 25 mmol/L 20 - 31 mmol/L [place] Creatinine [Mass/Vol] 0.59 mg/dL 0.5 - 0.9 mg/dL [place] GFR >60 >60 mL/min [place], [place] GFR Non- >60 >60 mL/min [place] GFR/1.73 sq M predicted among non-blacks MDRD (S/P/Bld) [Vol rate/Area] [place] Comment on above: Average GFR for 30-3 9 years old: 107 mL/min/1.73sq m Chronic Kidney Disease: <60 mL/min/1.73sq m Kidney failure: <15 mL/min/1.73sq m eGFR calculated using average adult body mass. Additional eGFR calculator available at: http://www.BrightRoll/multiple_crcl_2012.htm GFR/1.73 sq M predicted among non-blacks MDRD (S/P/Bld) [Vol rate/Area] NOT REPORTED [place] Glucose [Mass/Vol] 81 mg/dL 70 - 99 mg/dL [place] Interpretation and review of laboratory results Abnormal [place] Potassium [Moles/Vol] 4.6 mmol/L 3.7 - 5.3 mmol/L [place] Protein [Mass/Vol] 6.5 g/dL 6.4 - 8.3 g/dL [place] Sodium [Moles/Vol] 140 mmol/L 135 - 144 mmol/L [place] Urea nitrogen [Mass/Vol] 9 mg/dL 6 - 20 mg/dL [place] LIPASEon 12-15-2019 Lipase [Catalytic activity/Vol] 20 U/L 13 - 60 U/L [place] Lipaseon 12-15-2019 Lipase [Catalytic activity/Vol] 20 U/L Normal 13-60 [facility] Comment on above: Performed By: #### C DP, CP, LIP #### [facility] [address] [place], [place] [phone] Frame Polisher: John Yancey MD [id number] 12-15-2019 SARS-CoV-2 Source .NASOPHARYNGEAL SWAB Normal [facility] Comment on above: Performed By: #### C OVID #### [facility] [address] [place], [place] [phone] Frame Polisher: John Yancey MD Topamaxon 07-31-2019 TOPA 2.7 ug/mL Low 5.0-20.0 [facility] Comment on above: Result Comment: (NOT E) INTERPRETIVE INFORMATION: Topiramate Therapeutic range: 5.0-20.0 ug/mL Toxic: Not well established Pharmacokinetics varies widely, particularly with co-medications, age, and/or compromised renal function. Adverse effects may include somnolence, fatigue, and dizziness. Performed by [employer], [address] [place] [address] [email or web address], Nando Parrish MD, Lab. Director Performed By: #### C DP, CP, LIP #### [facility] [address] [place] [address] Frame Polisher: Kd Page MD CBC Auto DifferentialOrdered By: Tobias Hogan on 07-29-2019 Absolute Eos # 0.21 [facility] Work Phone: Absolute Immature Granulocyte <0.03 [facility] Work Phone: Absolute Lymph # 2.30 [facility] Work Phone: Absolute Yancey # 0.62 [facility] Work Phone: Basophils (Bld) [#/Vol] 0.06 10*3/uL [facility] Work Phone: Basophils/100 WBC (Bld) 1 % 0 - 2 % M [facility] Work Phone: Differential Type NOT REPORTED [facility] Work Phone: Eosinophils/100 WBC (Bld) 3 % 1 - 4 % [employer] Phone: Erythrocyte distribution width (RBC) [Ratio] 12.8 % 11.8 - 14.4 % [employer] Phone: Hematocrit (Bld) [Volume fraction] 38.4 % 36.3 - 47.1 % [employer] Phone: Hemoglobin (Bld) [Mass/Vol] 12.3 g/dL 11.9 - 15.1 g/dL [employer] Phone: Immature granulocytes/100 WBC (Bld) 0 % 0 [employer] Phone: Lymphocytes/100 WBC (Bld) 29 % 24 - 43 % [employer] Phone: MCH (RBC) [Entitic mass] 30.4 pg 25.2 - 33.5 pg [employer] Phone: MCHC (RBC) [Mass/Vol] 32.0 g/dL 28.4 - 34.8 g/dL [employer] Phone: MCV (RBC) [Entitic vol] 94.8 fL 82.6 - 102.9 fL [employer] Phone: Monocytes/100 WBC (Bld) 8 % 3 - 12 % [facility] Phone: NRBC Automated 0.0 0.0 per 100 WBC [employer] Phone: Platelet Estimate NOT REPORTED [employer] Phone: Platelet mean volume (Bld) [Entitic vol] 11.0 fL 8.1 - 13.5 fL [employer] Phone: Platelets (Bld) [#/Vol] 220 10*3/uL [employer] Phone: RBC (Bld) [#/Vol] 4.05 10*6/uL 3.95 - 5.1 1 m/uL [facility] Work Phone: RBC morphology finding Nom (Bld) NOT REPORTED [facility] Work Phone: Segmented neutrophils/100 WBC (Bld) 59 % 36 - 65 % [facility] Work Phone: Segs Absolute 4.79 [facility] Work Phone: WBC (Bld) [#/Vol] 8.0 10*3/uL [facility] Work Phone: WBC Morphology NOT REPORTED [facility] Work Phone: CBC with Diffon 07-29-2019 Abs. Basophil 0.06 k/uL Normal 0.00-0.20 [facility] Comment on above: Performed By: #### C DP, HCG, CMPX #### [facility] [address] [place] [address] [address] [place] [address] Frame Polisher: Kd Page MD Abs.Imm.Granulocyte <0.03 Normal 0.00-0.30 [facility] Comment on above: Performed By: #### C DP, HCG, CMPX #### [address] [place], [facility] Frame Polisher: Kd Page MD Abs.Neutrophil (Seg) 4.79 k/uL Normal 1.50-8.10 [facility] Comment on above: Performed By: #### C DP, HCG, CMPX #### [address] [place], [place] [phone] Frame Polisher: Kd Page MD Basophils/100 WBC (Bld) 1 % Normal 0-2 M [facility] Comment on above: Performed By: #### C DP, HCG, CMPX #### [address] [place] [address] Frame Polisher: Kd Page MD Eosinophils (Bld) [#/Vol] 0.21 10*3/uL Normal 0.00-0.44 [facility] Comment on above: Performed By: #### C DP, HCG, CMPX #### [facility] [address] [place] [address] Frame Polisher: Kd Page MD Eosinophils/100 WBC (Bld) 3 % Normal 1-4 [facility] Comment on above: Performed By: #### C DP, HCG, CMPX #### [facility] [address] [place] [address] Frame Polisher: Kd Page MD Erythrocyte distribution width (RBC) [Ratio] 12.8 % Normal 11.8-14.4 [facility] Comment on above: Performed By: #### C DP, HCG, CMPX #### [address] [place] [address] Frame Polisher: Kd Page MD Hematocrit (Bld) [Volume fraction] 38.4 % Normal 36.3-47.1 [facility] Comment on above: Performed By: #### C DP, HCG, CMPX #### [address] [place] [address] Frame Polisher: Kd Page MD Hemoglobin (Bld) [Mass/Vol] 12.3 g/dL Normal 11.9-15.1 [facility] Comment on above: Performed By: #### C DP, HCG, CMPX #### [address] [place] [address] Frame Polisher: Kd Page MD Immature granulocytes (Bld) [#/Vol] 0 % Normal 0 [facility] Comment on above: Performed By: #### C DP, HCG, CMPX #### [address] [place] [address]283 Frame Polisher: Kd Page MD Lymphocytes (Bld) [#/Vol] 2.30 10*3/uL Normal 1.10-3.70 [facility] Comment on above: Performed By: #### C DP, HCG, CMPX #### [facility] [address] [place] [address] Frame Polisher: Kd Page MD Lymphocytes/100 WBC (Bld) 29 % Normal 24-43 [facility] Comment on above: Performed By: #### C DP, HCG, CMPX #### [facility] [address] [place] [address] Frame Polisher: Kd Paeg MD MCH (RBC) [Entitic mass] 30.4 pg Normal 25.2-33.5 [facility] Comment on above: Performed By: #### C DP, HCG, CMPX #### [address] [place] [address] Frame Polisher: Kd Page MD MCHC (RBC) [Mass/Vol] 32.0 g/dL Normal 28.4-34.8 [facility] Comment on above: Performed By: #### C DP, HCG, CMPX #### [address] [place] [address] Frame Polisher: Kd Page MD MCV (RBC) [Entitic vol] 94.8 fL Normal 82.6-102.9 [facility] Comment on above: Performed By: #### C DP, HCG, CMPX #### [address] [place] [address] Frame Polisher: Kd Page MD Monocytes (Bld) [#/Vol] 0.62 10*3/uL Normal 0.10-1.20 [facility] Comment on above: Performed By: #### C DP, HCG, CMPX #### [facility] [address] [place] [address] Frame Polisher: Kd Page MD Monocytes/100 WBC (Bld) 8 % Normal 3-12 M [facility] Comment on above: Performed By: #### C DP, HCG, CMPX #### [facility] [address] [place], [place] [phone] Frame Polisher: Kd Page MD Neutrophil (Seg) 59 % Normal 36-65 [facility] Comment on above: Performed By: #### C DP, HCG, CMPX #### [facility] [address] [place] [phone] Frame Polisher: Kd Page MD NRBC Automated 0.0 per 100 WBC Normal 0.0 [facility] Comment on above: Performed By: #### C DP, HCG, CMPX #### [facility] [address] [place] [phone] Frame Polisher: Kd Page MD Platelet mean volume (Bld) [Entitic vol] 11.0 fL Normal 8.1-13.5 [facility] Comment on above: Performed By: #### C DP, HCG, CMPX #### [address] [place], [place] [phone] Frame Polisher: Kd Page MD Platelets (Bld) [#/Vol] 220 10*3/uL Normal 138-453 [facility] Comment on above: Performed By: #### C DP, HCG, CMPX #### [address] [place], [place] [phone] Frame Polisher: Kd Page MD RBC (Bld) [#/Vol] 4.05 10*6/uL Normal 3.95-5.11 [facility] Comment on above: Performed By: #### C DP, HCG, CMPX #### [facility] [address] [place], [place] [phone] Frame Polisher: Kd Page MD WBC (Bld) [#/Vol] 8.0 10*3/uL Normal 3.5-11.3 [facility] Comment on above: Performed By: #### C DP, HCG, CMPX #### [facility] [address] [place] [address] Frame Polisher: Kd Page MD Auto Diff Performed NOT REPORTED Normal [facility] Comment on above: Performed By: #### C DP, HCG, CMPX #### [facility] [address] [place], [place] [phone] Frame Polisher: Kd Page MD Platelets (Bld) [#/Vol] NOT REPORTED Normal [facility] Comment on above: Performed By: #### C DP, HCG, CMPX #### [facility] [address] [place] [address] Frame Polisher: Kd Page MD RBC morphology finding Nom (Bld) NOT REPORTED Normal [facility] Comment on above: Performed By: #### C DP, HCG, CMPX #### [facility] [address] [place], [place] [phone] Frame Polisher: Kd Page MD WBC Morphology NOT REPORTED Normal [facility] Comment on above: Performed By: #### C DP, HCG, CMPX #### [facility] [address] [place] [address] Frame Polisher: Kd Page MD Comp Metabolic Pr/rfx MGon 0 07-29-2019 (cont.) Normal [facility] Comment on above: Result Comment: Aver age GFR for 30-39 years old: 107 mL/min/1.73sq m Chronic Kidney Disease: <60 mL/min/1.73sq m Kidney failure: <15 mL/min/1.73sq m eGFR calculated using average adult body mass. Additional eGFR calculator available at: http://www.Domo.com/multiple_crcl_2012.htm Performed By: #### C DP, HCG, CMPX #### [facility] [address] [place], [place] [phone] Frame Polisher: Kd Page MD Albumin [Mass/Vol] 3.6 g/dL Normal 3.5-5.2 [facility] Comment on above: Performed By: #### C DP, HCG, CMPX #### [facility] [address] [place], [place] [phone] Frame Polisher: Kd Page MD Albumin/Globulin [Mass ratio] 1.1 {ratio} Normal 1.0-2.5 [facility] Comment on above: Performed By: #### C DP, HCG, CMPX #### [facility] [address] [place], [place] [phone] Frame Polisher: Kd Page MD Alkaline Phos 48 U/L Normal 35-104 [facility] Comment on above: Performed By: #### C DP, HCG, CMPX #### [facility] [address] [place], [place] [phone] Frame Polisher: Kd Page MD ALT [Catalytic activity/Vol] U/L Low 5-33 [facility] Comment on above: Performed By: #### C DP, HCG, CMPX #### [facility] [address] [place], [place] [phone] Frame Polisher: Kd Page MD Anion gap [Moles/Vol] 11 mmol/L Normal 9-17 [facility] Comment on above: Performed By: #### C DP, HCG, CMPX #### [facility] [address] [place], [place] 6245483 Frame Polisher: Kd Page MD AST [Catalytic activity/Vol] 20 U/L Normal <32 [facility] Comment on above: Performed By: #### C DP, HCG, CMPX #### [facility] [address] [place] [address] Frame Polisher: Kd Page MD Bilirubin Ql (U) 0.28 mg/dL Low 0.3-1.2 [facility] Comment on above: Performed By: #### C DP, HCG, CMPX #### [facility] [address] [place], [place] 4831183 Frame Polisher: Kd Page MD BUN/CRE Ratio 10 Normal 9-20 [facility] Comment on above: Performed By: #### C DP, HCG, CMPX #### [facility] [address] [place], [place] 3086583 Frame Polisher: Kd Page MD Calcium [Mass/Vol] 9.0 mg/dL Normal 8.6-10.4 [facility] Comment on above: Performed By: #### C DP, HCG, CMPX #### [facility] [address] [place], [place] [phone] Frame Polisher: Kd Page MD Chloride [Moles/Vol] 103 mmol/L Normal 98-107 [facility] Comment on above: Performed By: #### C DP, HCG, CMPX #### [facility] [address] [place], [place] [phone] Frame Polisher: Kd Page MD CO2 [Moles/Vol] 24 mmol/L Normal 20-31 [facility] Comment on above: Performed By: #### C DP, HCG, CMPX #### [facility] [address] [place], [place] [phone] Frame Polisher: Kd Page MD Creatinine [Mass/Vol] 0.59 mg/dL Normal 0.50-0.90 [facility] Comment on above: Performed By: #### C DP, HCG, CMPX #### [facility] [address] [place], [place] 7404983 Frame Polisher: Kd Page MD GFR, Amer >60 Normal >60 [facility] Comment on above: Performed By: #### C DP, HCG, CMPX #### [facility] [address] [place], [place] [phone] Frame Polisher: Kd Page MD GFR,non Amer >60 Normal >60 [facility] Comment on above: Performed By: #### C DP, HCG, CMPX #### [facility] [address] [place], [place] 8048383 Frame Polisher: Kd Page MD Glucose [Mass/Vol] 85 mg/dL Normal 70-99 [facility] Comment on above: Performed By: #### C DP, HCG, CMPX #### [facility] [address] [place], [place] [phone] Frame Polisher: Kd Page MD Potassium [Moles/Vol] 4.1 mmol/L Normal 3.7-5.3 [facility] Comment on above: Performed By: #### C DP, HCG, CMPX #### [facility] [address] [place], [place] [phone] Frame Polisher: Kd Page MD Protein [Mass/Vol] 6.8 g/dL Normal 6.4-8.3 [facility] Comment on above: Performed By: #### C DP, HCG, CMPX #### [address] [place], [place] [phone] Frame Polisher: Kd Page MD Sodium [Moles/Vol] 138 mmol/L Normal 135-144 [facility] Comment on above: Performed By: #### C DP, HCG, CMPX #### [facility] [address] [place], [place] [phone] Frame Polisher: Kd Page MD Staging: Normal [facility] Comment on above: Result Comment: Stag e 1: Some kidney damage normal GFR Stage 2: Mild kidney damage GFR 60-89 Stage 3: Moderate kidney damage GFR 30-59 Stage 4: Severe kidney damage GFR 15-29 Stage 5: Severe kidney damage GFR <15 ESRD - chronic treatment by dialysis or transplant Performed By: #### C DP, HCG, CMPX #### [facility] [address] [place], [place] [phone] Frame Polisher: Kd Page MD Urea nitrogen [Mass/Vol] 6 mg/dL Normal 6-20 [facility] Comment on above: Performed By: #### C DP, HCG, CMPX #### [facility] [address] [place] [address] Frame Polisher: Kd Page MD Comprehensive Metabolic Pane l w/ Reflex to MGOrdered By: Tobias Hogan on 07-29-2019 Albumin [Mass/Vol] 3.6 g/dL 3.5 - 5.2 g/dL [employer] Phone: Albumin/Globulin [Mass ratio] 1.1 {ratio} [facility] Phone: ALP [Catalytic activity/Vol] 48 U/L 35 - 104 U/L [facility] Phone: ALT [Catalytic activity/Vol] U/L Low 5 - 33 U/L [facility] Phone: Anion gap [Moles/Vol] 11 mmol/L 9 - 17 mmol/L [facility] Phone: AST [Catalytic activity/Vol] 20 U/L <32 [facility] Phone: Bilirubin [Mass/Vol] 0.28 mg/dL Low 0.3 - 1 .2 mg/dL [facility] Phone: Bun/Cre Ratio 10 [facility] [employer] Work Phone: Calcium [Mass/Vol] 9.0 mg/dL 8.6 - 10. 4 mg/dL [facility] Phone: Chloride [Moles/Vol] 103 mmol/L 98 - 10 7 mmol/L [facility] Phone: CO2 [Moles/Vol] 24 mmol/L 20 - 31 mmol/L [facility] Phone: Creatinine [Mass/Vol] 0.59 mg/dL 0.5 - 0.9 mg/dL [employer] Phone: GFR >60 >60 mL/min [employer] Phone: GFR Comment [employer] Phone: Comment on above: Average GFR for 30-3 9 years old: 107 mL/min/1.73sq m Chronic Kidney Disease: <60 mL/min/1.73sq m Kidney failure: <15 mL/min/1.73sq m eGFR calculated using average adult body mass. Additional eGFR calculator available at: http://www.BrightRoll/multiple_crcl_2012.htm GFR Non- >60 >60 mL/min [employer] Phone: GFR Staging [employer] Phone: Comment on above: Stage 1: Some kidney damage normal GFR Stage 2: Mild kidney damage GFR 60-89 Stage 3: Moderate kidney damage GFR 30-59 Stage 4: Severe kidney damage GFR 15-29 Stage 5: Severe kidney damage GFR <15 ESRD - chronic treatment by dialysis or transplant Glucose [Mass/Vol] 85 mg/dL 70 - 99 mg/dL [employer] Phone: Interpretation and review of laboratory results Abnormal [employer] Phone: Potassium [Moles/Vol] 4.1 mmol/L 3.7 - 5.3 mmol/L [employer] Phone: Protein [Mass/Vol] 6.8 g/dL 6.4 - 8.3 g/dL [employer] Phone: Sodium [Moles/Vol] 138 mmol/L 135 - 144 mmol/L [employer] Phone: Urea nitrogen [Mass/Vol] 6 mg/dL 6 - 20 mg/dL [employer] Phone: HCG Qualitative, SerumOrdere d By: Tobias Hogan on 07-29-2019 hCG Qual Negative NEGATIVE [employer] Phone: Comment on above: Specimens with hCG l evels near the threshold of the test (25 mIU/mL) may give a negative or indeterminate result. In such cases, another test should be performed with a new specimen in 48-72 hours. If early is suspected clinically in this setting, correlation with quantitative serum b-hCG level is suggested. [facility] has confirmed the use of plasma for this test. This has not been cleared or approved by the U.S. Food and Drug Administration. The FDA has determined that such clearance is not necessary. HCG Screen, Bloodon 07-29-19 20 HCG Qn Negative Normal NEG [facility] Comment on above: Result Comment: Spec imens with hCG levels near the threshold of the test (25 mIU/mL) may give a negative or indeterminate result. In such cases, another test should be performed with a new specimen in 48-72 hours. If early is suspected clinically in this setting, correlation with quantitative serum b-hCG level is suggested. [facility] has confirmed the use of plasma for this test. This has not been cleared or approved by the U.S. Food and Drug Administration. The FDA has determined that such clearance is not necessary. Performed By: #### C DP, HCG, CMPX #### [facility] [address] [place] [address] Frame Polisher: Kd Page MD Keppraon 07-29-2019 KEPP 13 ug/mL Normal [facility] Comment on above: Result Comment: A reference [...] By: #### C DP, CP, LIP #### [facility] [address] [place] [address] Frame Polisher: Kd Page MD XR CHEST (2 VW)on [...] Héctor Kimble MD 07/29/19 Final result Normal [facility] XR CHEST STANDARD (2 VW)Orde red By: Tobias Hogan on 07-29-2019 Lateral left costophrenic pleural thickening with surgical drains in the left upper abdomen. [employer] Phone: EXAMINATION: TWO XRAY VIEWS OF THE [...] abdomen. Cholecystectomy clips. No subdiaphragmatic free air. [employer] Phone: Abner, [facility] Incoming Radiant Results From [employer] - 07/29/2019 3:11 PM EST EXAMINATION: TWO [...] surgical drains in the left upper abdomen. [employer] Work Phone: CBC Auto DifferentialOrdered By: Krishna Jefferson on 07-23-2019 [employer] Eos # 0.27 [employer] [facility] Work Phone: Absolute Immature Granulocyte <0.03 [employer] Work Phone: Absolute Lymph # 2.78 [employer] [facility] Work Phone: Absolute Yancey # 0.56 [employer] [facility] Work Phone: Basophils (Bld) [#/Vol] 0.06 10*3/uL [facility] Work Phone: Basophils/100 WBC (Bld) 1 % 0 - 2 % [facility] Phone: Differential Type NOT REPORTED [facility] Phone: Eosinophils/100 WBC (Bld) 3 % 1 - 4 % [facility] Work Phone: Erythrocyte distribution width (RBC) [Ratio] 13.1 % 11.8 - 14.4 % [facility] Phone: Hematocrit (Bld) [Volume fraction] 38.7 % 36.3 - 47.1 % [employer] Phone: Hemoglobin (Bld) [Mass/Vol] 12.4 g/dL 11.9 - 15.1 g/dL [employer] Phone: Immature granulocytes/100 WBC (Bld) 0 % 0 [facility] Work Phone: Lymphocytes/100 WBC (Bld) 33 % 24 - 43 % [facility] Phone: MCH (RBC) [Entitic mass] 30.9 pg 25.2 - 33.5 pg [employer] Phone: MCHC (RBC) [Mass/Vol] 32.0 g/dL 28.4 - 34.8 g/dL [facility] Phone: MCV (RBC) [Entitic vol] 96.5 fL 82.6 - 102.9 fL [employer] Work Phone: Monocytes/100 WBC (Bld) 7 % 3 - 12 % [facility] Work Phone: NRBC Automated 0.0 0.0 per 100 WBC [facility] Phone: Platelet Estimate NOT REPORTED [facility] Work Phone: Platelet mean volume (Bld) [Entitic vol] 10.4 fL 8.1 - 13.5 fL [facility] Work Phone: Platelets (Bld) [#/Vol] 264 10*3/uL [facility] Work Phone: RBC (Bld) [#/Vol] 4.01 10*6/uL 3.95 - 5.1 1 m/uL [facility] Work Phone: RBC morphology finding Nom (Bld) NOT REPORTED [facility] Work Phone: Segmented neutrophils/100 WBC (Bld) 56 % 36 - 65 % [facility] Work Phone: Segs Absolute 4.66 [employer] [facility] [employer] Work Phone: WBC (Bld) [#/Vol] 8.3 10*3/uL [facility] [employer] Work Phone: WBC Morphology NOT REPORTED [employer] [facility] Work Phone: CBC with Diffon 07-23-2019 Abs. Basophil 0.06 k/uL Normal 0.00-0.20 [facility] Comment on above: Performed By: #### C JP ENGLISH, LIP #### [facility] [address] [place] [address] Frame Polisher: Kd Page MD Abs.Imm.Granulocyte <0.03 Normal 0.00-0.30 [facility] Comment on above: Performed By: #### C JP ENGLISH, LIP #### [facility] [address] [place], [place] [address] Frame Polisher: Kd Page MD Abs.Neutrophil (Seg) 4.66 k/uL Normal 1.50-8.10 [facility] Comment on above: Performed By: #### C DP, CP, LIP #### [address] [place], [facility] Frame Polisher: Kd Page MD Basophils/100 WBC (Bld) 1 % Normal 0-2 [facility] Comment on above: Performed By: #### C DP, CP, LIP #### [address] [place], [place] [address] Frame [employer]isher: Kd Page MD Eosinophils (Bld) [#/Vol] 0.27 10*3/uL Normal 0.00-0.44 [facility] Comment on above: Performed By: #### C DP, CP, LIP #### [address] [place], [place] [address] Frame Polisher: Kd Page MD Eosinophils/100 WBC (Bld) 3 % Normal 1-4 [facility] Comment on above: Performed By: #### C DP, CP, LIP #### [address] [place], [place] [address] Frame Polisher: Kd Page MD Erythrocyte distribution width (RBC) [Ratio] 13.1 % Normal 11.8-14.4 [facility] Comment on above: Performed By: #### C DP, CP, LIP #### [address] [place], [facility] Frame Polisher: Kd Page MD Hematocrit (Bld) [Volume fraction] 38.7 % Normal 36.3-47.1 [facility] Comment on above: Performed By: #### C DP, CP, LIP #### [address] [place] [address] Frame Polisher: Kd Page MD Hemoglobin (Bld) [Mass/Vol] 12.4 g/dL Normal 11.9-15.1 [facility] Comment on above: Performed By: #### C DP CP, LIP #### [facility] [address] [place], [place] [id number] Frame [employer]isher: Kd Page MD Immature granulocytes (Bld) [#/Vol] 0 % Normal 0 [facility] Comment on above: Performed By: #### C DP, CP, LIP #### [facility] [address] [place], [place] [id number] Frame [employer]isher: Kd Page MD Lymphocytes (Bld) [#/Vol] 2.78 10*3/uL Normal 1.10-3.70 [facility] Comment on above: Performed By: #### C TAMEKA CP, LIP #### [address] [place], [facility] Frame Polisher: Kd Page MD Lymphocytes/100 WBC (Bld) 33 % Normal 24-43 [facility] Comment on above: Performed By: #### C TAMEKA CP, LIP #### [address] [place], [facility] Frame Polisher: Kd Page MD MCH (RBC) [Entitic mass] 30.9 pg Normal 25.2-33.5 [facility] Comment on above: Performed By: #### C DP CP, LIP #### [facility] [address] [place], [place] [id number] Frame Polisher: Kd Page MD MCHC (RBC) [Mass/Vol] 32.0 g/dL Normal 28.4-34.8 [facility] Comment on above: Performed By: #### C DP CP, LIP #### [facility] [address] [place] [address] Frame Polisher: Kd Page MD MCV (RBC) [Entitic vol] 96.5 fL Normal 82.6-102.9 [facility] Comment on above: Performed By: #### C DP, CP, LIP #### [facility] [address] [place] [address] Frame Polisher: Kd Page MD Monocytes (Bld) [#/Vol] 0.56 10*3/uL Normal 0.10-1.20 [facility] Comment on above: Performed By: #### C DP, CP, LIP #### [facility] [address] [place], [facility] Frame Polisher: Kd Page MD Monocytes/100 WBC (Bld) 7 % Normal 3-12 [facility] Comment on above: Performed By: #### C DP CP, LIP #### [address] [place], [place] [address] Frame Polisher: Kd Page MD Neutrophil (Seg) 56 % Normal 36-65 [facility] Comment on above: Performed By: #### C DP CP, LIP #### [address] [place], [place] [address] Frame [employer]isher: Kd Page MD NRBC Automated 0.0 per 100 WBC Normal 0.0 [facility] Comment on above: Performed By: #### C DP CP, LIP #### [address] [place], [facility] Frame Polisher: Kd Page MD Platelet mean volume (Bld) [Entitic vol] 10.4 fL Normal 8.1-13.5 [facility] Comment on above: Performed By: #### C DP, CP, LIP #### [address] [place] [address] Frame Polisher: Kd Pgae MD Platelets (Bld) [#/Vol] 264 10*3/uL Normal 138-453 [facility] Comment on above: Performed By: #### C DP, CP, LIP #### [facility] [address] [place] [address] Frame Polisher: Kd Page MD RBC (Bld) [#/Vol] 4.01 10*6/uL Normal 3.95-5.11 [facility] Comment on above: Performed By: #### C DP, CP, LIP #### [facility] [address] [place] [address] Frame Polisher: Kd Page MD WBC (Bld) [#/Vol] 8.3 10*3/uL Normal 3.5-11.3 [facility] Comment on above: Performed By: #### C DP, CP, LIP #### [facility] [address] [place] [address] Frame Polisher: Kd Page MD Auto Diff Performed NOT REPORTED Normal [facility] Comment on above: Performed By: #### C DP, CP, LIP #### [facility] [address] [place], [facility] Frame Polisher: Kd Page MD Platelets (Bld) [#/Vol] NOT REPORTED Normal [facility] Comment on above: Performed By: #### C DP, CP, LIP #### [facility] [address] [place], [place] [id number] Frame [employer]isher: Kd Page MD RBC morphology finding Nom (Bld) NOT REPORTED Normal [facility] Comment on above: Performed By: #### C DP, CP, LIP #### [facility] [address] [place], [place] [address] Frame [employer]isher: Kd Page MD WBC Morphology NOT REPORTED Normal [facility] Comment on above: Performed By: #### C DP, CP, LIP #### [facility] [address] [place], [place] [address] Frame Polisher: Kd Page MD CT ABDOMEN PELVIS W [...] Dusty Krueger MD 07/23/19 Final result Normal [facility] CT ABDOMEN PELVIS W IV CONTR ASTOrdered By: Krishna Jefferson on 07-23-2019 No bowel obstruction. No extravasation of oral contrast. Percutaneous drain within the left upper quadrant. Small perisplenic collection is suspected to be an abscess. Drain is seen adjacent to this but not directly within it. [facility] [employer] Work Phone: EXAMINATION: CT OF THE ABDOMEN [...] acute soft tissue abnormality. No osseous abnormality. [employer] Work Phone: Abner, [facility] Incoming Radiant Results From [employer] - 07/23/2019 6:14 PM EST EXAMINATION: CT [...] to this but not directly within it. [facility] Work Phone: Comp Metabolic Profon 2018 (cont.) Normal [facility] Comment on above: Result Comment: Aver age GFR for 30-39 years old: 107 mL/min/1.73sq m Chronic Kidney Disease: <60 mL/min/1.73sq m Kidney failure: <15 mL/min/1.73sq m eGFR calculated using average adult body mass. Additional eGFR calculator available at: http://www.BrightRoll/multiple_crcl_2011.htm Performed By: #### C JP ENGLISH, LIP #### [facility] [address] [place] [address] [place] [address] Frame Polisher: Kd Page MD Albumin [Mass/Vol] 3.7 g/dL Normal 3.5-5.2 [facility] Comment on above: Performed By: #### C JP ENGLISH, LIP #### [facility] [address] [place] [address] Frame Polisher: Kd Page MD Albumin/Globulin [Mass ratio] 1.0 {ratio} Normal 1.0-2.5 [facility] Comment on above: Performed By: #### C JP ENGLISH, LIP #### [facility] [address] [place] [address] Frame Polisher: Kd Page MD Alkaline Phos 57 U/L Normal 35-104 [facility] Comment on above: Performed By: #### C TAMEKA CP, LIP #### [facility] [address] [place], [place] [id number] Frame [employer]isher: Kd Page MD ALT [Catalytic activity/Vol] 10 U/L Normal 5-33 [facility] Comment on above: Performed By: #### C DP, CP, LIP #### [facility] [address] [place], [place] [id number] Frame [employer]isher: Kd Page MD Anion gap [Moles/Vol] 11 mmol/L Normal 9-17 [facility] Comment on above: Performed By: #### C DP, CP, LIP #### [facility] [address] [place], [place] [id number] Frame Polisher: Kd Page MD AST [Catalytic activity/Vol] 18 U/L Normal <32 [facility] Comment on above: Performed By: #### C DP, CP, LIP #### [facility] [address] [place], [place] [address]83 Frame [employer]isher: Kd Page MD Bilirubin Ql (U) 0.20 mg/dL Low 0.3-1.2 [facility] Comment on above: Performed By: #### C DP, CP, LIP #### [facility] [address] [place], [place] [id number] Frame Polisher: Kd Page MD BUN/CRE Ratio 17 Normal 9-20 [facility] Comment on above: Performed By: #### C DP, CP, LIP #### [facility] [address] [place], [place] [address] Frame [employer]isher: Kd Page MD Calcium [Mass/Vol] 9.0 mg/dL Normal 8.6-10.4 [facility] Comment on above: Performed By: #### C DP, CP, LIP #### [facility] [address] [place], [place] [address] Frame [employer]isher: Kd Page MD Chloride [Moles/Vol] 104 mmol/L Normal 98-107 [facility] Comment on above: Performed By: #### C DP, CP, LIP #### [facility] [address] [place], [place] [id number] Frame [employer]isher: Kd Page MD CO2 [Moles/Vol] 24 mmol/L Normal 20-31 [facility] Comment on above: Performed By: #### C DP, CP, LIP #### [facility] [address] [place], [place] [id number] Frame [employer]isher: Kd Page MD Creatinine [Mass/Vol] 0.48 mg/dL Low 0.50-0.90 [facility] Comment on above: Performed By: #### C DP, CP, LIP #### [facility] [address] [place], [place] [address] Frame [employer]isher: Kd Page MD GFR, Amer >60 Normal >60 [facility] Comment on above: Performed By: #### C DP, CP, LIP #### [facility] [address] [place], [place] [address] Frame [employer]isher: Kd Page MD GFR,non Amer >60 Normal >60 [facility] Comment on above: Performed By: #### C DP, CP, LIP #### [facility] [address] [place] [address] Frame Polisher: Kd Page MD Glucose [Mass/Vol] 93 mg/dL Normal 70-99 [facility] Comment on above: Performed By: #### C DP, CP, LIP #### [facility] [address] [place], [place] [address]83 Frame [employer]isher: Kd Page MD Potassium [Moles/Vol] 3.6 mmol/L Low 3.7-5.3 [facility] Comment on above: Performed By: #### C DP, CP, LIP #### [facility] [address] [place], [place] [id number] Frame [employer]isher: Kd Page MD Protein [Mass/Vol] 7.4 g/dL Normal 6.4-8.3 [facility] Comment on above: Performed By: #### C DP, CP, LIP #### [facility] [address] [place] [address] Frame Polisher: Kd Page MD Sodium [Moles/Vol] 139 mmol/L Normal 135-144 [facility] Comment on above: Performed By: #### C DP, CP, LIP #### [facility] [address] [place] [address] Frame Polisher: Kd Page MD Staging: Normal [facility] Comment on above: Result Comment: Stag e 1: Some kidney damage normal GFR Stage 2: Mild kidney damage GFR 60-89 Stage 3: Moderate kidney damage GFR 30-59 Stage 4: Severe kidney damage GFR 15-29 Stage 5: Severe kidney damage GFR <15 ESRD - chronic treatment by dialysis or transplant Performed By: #### C DP, CP, LIP #### [facility] [address] [place] [address] Frame Polisher: Kd Page MD Urea nitrogen [Mass/Vol] 8 mg/dL Normal 6-20 [facility] Comment on above: Performed By: #### C DP, CP, LIP #### [facility] [address] [place] [address] Frame Polisher: Kd Page MD [facility] Metabolic Pane lOrdered By: Krishna Jefferson on 07-23-2019 Albumin [Mass/Vol] 3.7 g/dL 3.5 - 5.2 g/dL [employer] Phone: Albumin/Globulin [Mass ratio] 1.0 {ratio} [employer] Phone: ALP [Catalytic activity/Vol] 57 U/L 35 - 104 U/L [facility] Phone: ALT [Catalytic activity/Vol] 10 U/L 5 - 33 U/L [employer] Phone: Anion gap [Moles/Vol] 11 mmol/L 9 - 17 mmol/L [employer] Phone: AST [Catalytic activity/Vol] 18 U/L <32 [employer] Phone: Bilirubin [Mass/Vol] 0.20 mg/dL Low 0.3 - 1 .2 mg/dL [employer] Phone: Bun/Cre Ratio 17 [employer] Work Phone: Calcium [Mass/Vol] 9.0 mg/dL 8.6 - 10. 4 mg/dL [employer] Phone: Chloride [Moles/Vol] 104 mmol/L 98 - 10 7 mmol/L [employer] Phone: CO2 [Moles/Vol] 24 mmol/L 20 - 31 mmol/L [employer] Phone: Creatinine [Mass/Vol] 0.48 mg/dL Low 0.5 - 0.9 mg/dL [employer] Phone: GFR >60 >60 mL/min [employer] Phone: GFR Comment [employer] Phone: Comment on above: Average GFR for 30-3 9 years old: 107 mL/min/1.73sq m Chronic Kidney Disease: <60 mL/min/1.73sq m Kidney failure: <15 mL/min/1.73sq m eGFR calculated using average adult body mass. Additional eGFR calculator available at: http://www.Domo.com/multiple_crcl_2012.htm GFR Non- >60 >60 mL/min [employer] Phone: GFR Staging [employer] Phone: Comment on above: Stage 1: Some kidney damage normal GFR Stage 2: Mild kidney damage GFR 60-89 Stage 3: Moderate kidney damage GFR 30-59 Stage 4: Severe kidney damage GFR 15-29 Stage 5: Severe kidney damage GFR <15 ESRD - chronic treatment by dialysis or transplant Glucose [Mass/Vol] 93 mg/dL 70 - 99 mg/dL [employer] Work Phone: Potassium [Moles/Vol] 3.6 mmol/L Low 3.7 - 5.3 mmol/L [employer] Work Phone: Protein [Mass/Vol] 7.4 g/dL 6.4 - 8.3 g/dL [employer] Phone: Sodium [Moles/Vol] 139 mmol/L 135 - 144 mmol/L [employer] Phone: Urea nitrogen [Mass/Vol] 8 mg/dL 6 - 20 mg/dL [employer] Phone: Lipaseon 07-23-2019 Lipase [Catalytic activity/Vol] 70 U/L High 13-60 [facility] Comment on above: Performed By: #### C DP, CP, LIP #### [facility] [address] [place] [address] Frame Polisher: Kd Page MD LipaseOrdered By: Krishna tatum on 07-23-2019 Lipase [Catalytic activity/Vol] 70 U/L High 13 - 60 U/L [facility] [employer] Phone: Microscopic UrinalysisOrdere d By: Krishna Jefferson on 07-23-2019 - [employer] Work Phone: Amorphous, UA NOT REPORTED None [employer] [facility] Work Phone: Bacteria, UA 1+ Abnormal None [employer] Work Phone: Casts UA NOT REPORTED /LPF [employer] Work Phone: Crystals UA 2 TO 5 CALCIUM OXALATE Abnormal None /HPF [employer] Work Phone: Epithelial Cells UA 2 TO 5 [employer] Work Phone: Interpretation and review of laboratory results Abnormal [employer] Work Phone: Mucus, UA 3+ Abnormal None [facility] Work Phone: Other Observations UA NOT REPORTED NOT REQ. [facility] Phone: RBC, UA 0 TO 2 [facility] Work Phone: Renal Epithelial, Urine NOT REPORTED 0 /HPF [facility] Work Phone: Trichomonas, UA NOT REPORTED None [facility] [employer] Work Phone: WBC, UA 0 TO 2 [facility] Work Phone: Yeast, UA NOT REPORTED None [facility] [employer] Work Phone: No Panel InformationOrdered By: Krishna Jefferson on 07-23-2019 Interpretation and review of laboratory results Abnormal [facility] [employer] Work Phone: UA w/Reflex Cultureon 2018 Acetoacetic Acid,Ur TRACE Abnormal NEG [facility] Comment on above: Performed By: #### U AX, UMICAO #### [facility] [address] [place] [address] Frame Polisher: Kd Page MD Bilirubin, SemiQt,Ur Negative Normal NEG [facility] Comment on above: Performed By: #### U AX, UMICAO #### [facility] [address] [place] [address] Frame Polisher: Kd Page MD Color (U) YELLOW Normal YEL [facility] Comment on above: Performed By: #### U AX, UMICAO #### [facility] [address] [place] [address] Frame Polisher: Kd Page MD Glucose Ql (U) Negative Normal NEG [facility] Comment on above: Performed By: #### U AX, UMICAO #### [facility] [address] [place] [address] Frame Polisher: Kd Page MD Hemoglobin, Ur Negative Normal [facility]G [facility] Comment on above: Performed By: #### U AX, UMICAO #### [facility] [address] [place] [address] Frame Polisher: Kd Page MD Leukocyte esterase Test strip Ql (U) Negative Normal NEG [facility] Comment on above: Performed By: #### U AX, UMICAO #### [facility] [address] [place], [facility] Frame Polisher: Kd Page MD Nitrite,Ur Negative Normal NEG [facility] Comment on above: Performed By: #### U AX, UMICAO #### [address] [place], [facility] Frame Polisher: Kd Page MD pH (U) 6.0 [pH] Normal 5.0-9.0 [facility] Comment on above: Performed By: #### U AX, UMICAO #### [facility] [address] [place] [address] Dr[place], [facility] Frame [employer]isher: Kd Page MD Protein Ql (U) Negative Normal NEG [facility] in Hospital Comment on above: Performed By: #### U AX, UMICAO #### [address] [place], [place] [id number] Frame [employer]isher: Kd Page MD Specific gravity (U) [Rel density] >1.030 High 1.010-1.020 [facility] Comment on above: Performed By: #### U AX, UMICAO #### [facility] [address] [place], [place] [id number] Frame [employer]isher: Kd Page MD Turbidity CLEAR Normal CLEAR [facility] Comment on above: Performed By: #### U AX, UMICAO #### [facility] [address] [place] [id number] Frame Polisher: Kd Page MD Urobilinogen,Ur Normal Normal NORM [facility] Comment on above: Performed By: #### U AX, UMICAO #### [facility] [address] [place] [address] Frame Polisher: Kd Page MD Comment NOT REPORTED Normal [facility] Comment on above: Performed By: #### U AX, UMICAO #### [facility] [address] [place] [address] Frame Polisher: Kd Page MD Urinalysis Reflex to Culture Ordered By: Krishna Jefferson on 07-23-2019 Bilirubin Urine Negative NEGATIVE [facility] Work Phone: Color, UA YELLOW YELLOW [facility] Work Phone: Glucose, Ur Negative NEGATIVE [facility] Work Phone: Interpretation and review of laboratory results Abnormal [facility] Work Phone: Ketones Ql (U) TRACE Abnormal NEGATIVE [facility] Work Phone: Leukocyte esterase Test strip Ql (U) Negative NEGATIVE [facility] Work Phone: Nitrite, Urine Negative NEGATIVE [facility] Work Phone: pH, UA 6.0 [facility] Work Phone: Protein, UA Negative NEGATIVE [facility] Work Phone: Specific [place], UA >1.030 [facility] Work Phone: Turbidity UA CLEAR CLEAR [facility] Work Phone: Urinalysis Comments NOT REPORTED [facility] Work Phone: Urine Hgb Negative NEGATIVE [facility] Work Phone: Urobilinogen, Urine Normal Normal [facility] Work Phone: Urinalysis,Microon 9 ----- Normal [facility] Comment on above: Performed By: #### U AX, UMICAO #### [facility] [address] [place] [address] Frame Polisher: Kd Page MD Bacteria LM.HPF (Urine sed) [#/Area] 1+ Abnormal [facility] Comment on above: Performed By: #### U AX, UMICAO #### [facility] [address] [place] [address] Frame Polisher: Kd Page MD Crystals LM Nom (Urine sed) 2 TO 5 Abnormal [facility] Comment on above: Result Comment: CALC IUM OXALATE Performed By: #### U AX, UMICAO #### [facility] [address] [place] [address] Frame Polisher: Kd Page MD Epithelial cells LM.HPF (Urine sed) [#/Area] 2 TO 5 Normal 0-25 [facility] Comment on above: Performed By: #### U AX, UMICAO #### [facility] [address] [place] [address] Frame Polisher: Kd Page MD Mucus Strands 3+ Abnormal [facility] Comment on above: Performed By: #### U AX, UMICAO #### [facility] [address] [place] [address] Frame Polisher: Kd Page MD RBC (U) [#/Vol] 0 TO 2 Normal 0-2 [facility] Comment on above: Performed By: #### U AX, UMICAO #### [facility] [address] [place] [address] Frame Polisher: Kd Page MD WBC (U) [#/Vol] 0 TO 2 Normal 0-5 [facility] Comment on above: Performed By: #### U AX, UMICAO #### [facility] [address] [place] [address] Frame Polisher: Kd Page MD Amorphous sediment LM Ql (Urine sed) NOT REPORTED Normal NONE [facility] Comment on above: Performed By: #### U AX, UMICAO #### [facility] [address] [place], [place] [id number] Frame Polisher: Kd Page MD Casts LM.LPF (Urine sed) [#/Area] NOT REPORTED Normal [facility] Comment on above: Performed By: #### U AX, UMICAO #### [facility] [address] [place], [place] [id number] Frame Polisher: Kd Page MD Epithelial, Renal NOT REPORTED Normal 0 [facility] Comment on above: Performed By: #### U AX, UMICAO #### [facility] [address] [place], [place] [id number] Frame Polisher: Kd Page MD Other Observations NOT REPORTED Normal [facility] Comment on above: Performed By: #### U AX, UMICAO #### [facility] [address] [place] [address] Frame Polisher: Kd Page MD Trichomonas NOT REPORTED Normal [facility] Comment on above: Performed By: #### U AX, UMICAO #### [facility] [address] [place], [place] [id number] Frame Polisher: Kd Page MD Yeast LM Ql (Urine sed) NOT REPORTED Normal [facility] Comment on above: Performed By: #### U AX, UMICAO #### [facility] [address] [place], [place] [id number] Frame Polisher: Kd Page MD Vital Signs Date Time Vital Sign Value Performing Clinician Facility 06-30-2024 16:59-0500 Body temperature 97.88 [degF] Jerrell Porter [facility] 06-30-2024 16:59-0500 Diastolic blood pressure 72 mm[Hg] Jerrell Porter [facility] 06-30-2024 16:59-0500 Heart rate 88 /min Jerrell Porter [facility] 06-30-2024 16:59-0500 Respiratory rate 14 /min Jerrell Porter [facility] 06-30-2024 16:59-0500 SaO2% (BldA) [Mass fraction] 100 % Jerrell Porter [facility] 06-30-2024 16:59-0500 Systolic blood pressure 108 mm[Hg] Jerrell Porter [facility] 05-10-2024 15:37-0400 Body height 165.1 cm Nona [place] DO Work Phone: [facility] 05-10-2024 15:37-0400 Body mass index (BMI) [Ratio] 29.35 kg/m2 Nona [place]ksville DO Work Phone: [facility] 05-10-2024 15:37-0400 Body temperature 97.81 [degF] Nona [place] DO Work Phone: [facility] 05-10-2024 15:37-0400 Body weight 80.02 kg Nona [place] DO Work Phone: [facility] 05-10-2024 15:37-0400 Diastolic blood pressure 70 mm[Hg] Nona [place]ville DO Work Phone: [facility] 05-10-2024 15:37-0400 Heart rate 90 /min Nona Kirksville DO Work Phone: [facility] 05-10-2024 15:37-0400 SaO2% (BldA) [Mass fraction] 98 % Nona Kirksville DO Work Phone: [facility] 05-10-2024 15:37-0400 Systolic blood pressure 112 mm[Hg] Nona Kirksville DO Work Phone: [facility] 04-02-2024 09:29-0400 Body height 165.1 cm Nona Kirksville DO Work Phone: [facility] 04-02-2024 09:29-0400 Body mass index (BMI) [Ratio] 29.72 kg/m2 Nona Kirksville DO Work Phone: [facility] 04-02-2024 09:29-0400 Body temperature 97.2 [degF] Nona Kirksville DO Work Phone: [facility] 04-02-2024 09:29-0400 Body weight 81.01 kg Nona Kirksville DO Work Phone: [facility] 04-02-2024 09:29-0400 Diastolic blood pressure 74 mm[Hg] Nona Kirksville DO Work Phone: [facility] 04-02-2024 09:29-0400 Heart rate 92 /min Nona Kirksville DO Work Phone: [facility] 04-02-2024 09:29-0400 SaO2% (BldA) [Mass fraction] 97 % Nona Kirksville DO Work Phone: [facility] 04-02-2024 09:29-0400 Systolic blood pressure 126 mm[Hg] Nona Kirksville DO Work Phone: [facility] 03-13-2024 13:27-0400 Body weight 80.74 kg Marisa Bowers RADIOLOGICAL ENGINEER Work Phone: [facility] 03-13-2024 13:27-0400 Diastolic blood pressure 60 mm[Hg] Marisa Bowers RADIOLOGICAL ENGINEER Work Phone: [facility] 03-13-2024 13:27-0400 Systolic blood pressure 104 mm[Hg] Marisa Bowers RADIOLOGICAL ENGINEER Work Phone: [facility] 05-26-2022 10:37-0400 Body height 165.1 cm Sanket Medina MD Work Phone: [facility] 05-26-2022 10:37-0400 Body mass index (BMI) [Ratio] 23.48 kg/m2 Sanket Medina MD Work Phone: [facility] 05-26-2022 10:37-0400 Body temperature 98.01 [degF] Sanket Medina MD Work Phone: [facility] 05-26-2022 10:37-0400 Body weight 64 kg Sanket Medina MD Work Phone: [facility] 05-26-2022 10:37-0400 Diastolic blood pressure 62 mm[Hg] Sanket Medina MD Work Phone: [facility] 05-26-2022 10:37-0400 Heart rate 104 /min Sanket Medina MD Work Phone: [facility] 05-26-2022 10:37-0400 Systolic blood pressure 120 mm[Hg] Sanket Medina MD Work Phone: [facility] 01-04-2020 10:15-0400 Pulse (Heart Rate) 60 /min [place] 01-04-2020 10:15-0400 Pulse Oximetry 97 % [place] 01-04-2020 10:10-0400 BP Diastolic 61 mm[Hg] [place] 01-04-2020 10:10-0400 BP Systolic 101 mm[Hg] [place] 01-04-2020 10:10-0400 Respiratory Rate 14 /min [place] 01-04-2020 09:45-0400 Body Temperature 98.2 [degF] [place] 01-04-2020 08:40-0400 BMI (Body Mass Index) 23.82 kg/m2 [place] 01-04-2020 08:40-0400 Body weight 66.95 kg [facility] [place] 01-04-2020 08:40-0400 Height 167.6 cm [place] 12-18-2019 08:54-0400 Body Temperature 98.1 [degF] Tobias Zavala [employer] [place], [place] 12-18-2019 08:54-0400 BP Diastolic 59 mm[Hg] [facility] [email or web address] , [place] 12-18-2019 08:54-0400 BP Systolic 99 mm[Hg] Tobias Zavala [employer] [facility], [place] 12-18-2019 08:54-0400 Pulse (Heart Rate) 86 /min [facility] [employer] [facility], [place] 12-18-2019 08:54-0400 Pulse Oximetry 98 % [facility] [employer] [facility], [place] 12-18-2019 08:54-0400 Respiratory Rate 16 /min [facility] [employer] [place], [place] 12-15-2019 22:00-0400 BMI (Body Mass Index) 24.46 kg/m2 [facility] [employer] [place], [place] 12-15-2019 22:00-0400 Body weight 66.68 kg [facility] [email or web address] , [place] 12-15-2019 22:00-0400 Height 165.1 cm [facility], [place] 07-29-2019 16:39-0500 Respiratory rate 16 /min Tobias SoseiroSand Sign Work Phone: [employer] Work Phone: 07-29-2019 16:25-0500 SaO2% (BldA) [Mass fraction] 100 % [employer] Work Phone: [employer] Work Phone: 07-29-2019 16:21-0500 Diastolic blood pressure 78 mm[Hg] Tobias Soseirov [employer] Work Phone: [employer] Work Phone: 07-29-2019 16:21-0500 Systolic blood pressure 114 mm[Hg] Tobias Henningrov DO Work Phone: [employer] Work Phone: 07-29-2019 14:55-0500 Heart rate 66 /min Tobias Henningrov [employer] Work Phone: [employer] Work Phone: 07-29-2019 13:05-0500 Body mass index (BMI) [Ratio] 19.64 kg/m2 Tobias Hogan DO Work Phone: [employer] Work Phone: 07-29-2019 13:05-0500 Body temperature 98.29 [degF] Tobias Hogan DO Work Phone: [employer] Work Phone: 07-29-2019 13:05-0500 Body weight 53.52 kg Tobias Hogan DO Work Phone: [employer] Work Phone: 07-23-2019 21:40-0500 Body height 165.1 cm Venice Caballero MD Work Phone: [employer] Work Phone: 07-23-2019 21:40-0500 Body mass index (BMI) [Ratio] 19.14 kg/m2 Venice Caballero MD Work Phone: [employer] Work Phone: 07-23-2019 21:40-0500 Body temperature 98.6 [degF] Venice Caballero MD Work Phone: [employer] Work Phone: 07-23-2019 21:40-0500 Body weight 52.16 kg Venice Caballero MD Work Phone: [employer] Work Phone: 07-23-2019 21:40-0500 Diastolic blood pressure 63 mm[Hg] Venice Caballero MD Work Phone: [employer] Work Phone: 07-23-2019 21:40-0500 Heart rate 85 /min Venice Caballero MD Work Phone: [employer] Work Phone: 07-23-2019 21:40-0500 Respiratory rate 18 /min Venice Caballero MD Work Phone: [employer] Phone: 07-23-2019 21:40-0500 SaO2% (BldA) [Mass fraction] 99 % Venice Caballero MD Work Phone: [employer] Work Phone: 07-23-2019 21:40-0500 Systolic blood pressure 103 mm[Hg] Venice Caballero MD Work Phone: [employer] Phone: 07-23-2019 20:09-0500 Diastolic blood pressure 58 mm[Hg] [employer] Phone: 07-23-2019 20:09-0500 Heart rate 77 /min [employer] Phone: 07-23-2019 20:09-0500 SaO2% (BldA) [Mass fraction] 99 % [employer] Phone: 07-23-2019 20:09-0500 Systolic blood pressure 105 mm[Hg] [employer] Phone: 07-23-2019 19:06-0500 Body temperature 97.7 [degF] [employer] Phone: 07-23-2019 13:46-0500 Body weight 52.16 kg [employer] Phone: 07-23-2019 13:46-0500 Respiratory rate 18 /min [employer] Phone: Encounters Encounter Date Encounter Type Care Provider Facility Start: 07-18-2024 End: 07-19-2024 Refill Nona L [place] DO Work Phone: [facility] 230 Comment on above: Attention deficit hy peractivity disorder (ADHD), unspecified ADHD type ([facility]/HCC) Start: 07-15-2024 End: 07-16-2024 Refill Nona L [place] DO Work Phone: [facility] 230 Comment on above: Attention deficit hy peractivity disorder (ADHD), unspecified ADHD type (CMS/HCC) Start: 06-30-2024 End: 06-30-2024 Emergency department patient visit Jerrell [facility] Start: 06-17-2024 End: 06-18-2024 Refill Nona L [place] DO Work Phone: [facility] 230 Comment on above: Attention deficit hy peractivity disorder (ADHD), unspecified ADHD type (CMS/HCC) Start: 06-10-2024 End: 06-11-2024 Refill Nona L [place] DO Work Phone: [facility] 230 Comment on above: Attention deficit hy peractivity disorder (ADHD), unspecified ADHD type (CMS/HCC) Start: 06-08-2024 End: 06-08-2024 Orders Only Nona L [place] DO Work Phone: [facility] 230 Comment on above: Type 2 diabetes rachel itus with hypoglycemia without coma, without long-term current use of insulin (CMS/HCC); Dumping syndrome Start: 06-07-2024 End: 06-07-2024 ambulatory Anson Patiño DO Facility:[facility] Start: 05-10-2024 End: 05-10-2024 Office outpatient visit 25 minutes Nona L [place] DO Work Phone: [facility] 230 Comment on above: Type 2 diabetes rachel itus with hypoglycemia without coma, without long-term current use of insulin (CMS/HCC) (Primary Dx); Reactive hypoglycemia; Dumping syndrome; Attention deficit hyperactivity disorder (ADHD), unspecified ADHD type (CMS/HCC); Mild episode of recurrent major depressive disorder (HCC) (CMS/HCC) Start: 05-10-2024 End: 05-10-2024 ambulatory NONA L CUTLER Not Available Start: 05-10-2024 End: 05-10-2024 Bamboo flowsheet Nona L [place] DO Work Phone: [facility] 230 Start: 05-10-2024 End: 05-10-2024 Bamboo flowsheet Nona L [place]ks[place] DO Work Phone: [facility] 230 Start: 05-08-2024 End: 05-08-2024 Refill Nona L [place] DO Work Phone: [facility] 230 Comment on above: Attention deficit hy peractivity disorder (ADHD), unspecified ADHD type (CMS/HCC) (Primary Dx) Start: 04-05-2024 End: 04-05-2024 ambulatory Anson Patiño DO Facility:[facility] Start: 04-02-2024 End: 04-02-2024 Bamboo flowsheet Nona L Kirks[place] DO Work Phone: [facility] 230 Start: 04-02-2024 End: 04-02-2024 Bamboo flowsheet Nona L [place] DO Work Phone: [facility] 230 Start: 04-02-2024 End: 04-02-2024 Office outpatient visit 25 minutes Nona L [place]ks[place] DO Work Phone: [facility] 230 Comment on above: Reactive hypoglycemi a (Primary Dx); Type 2 diabetes mellitus with hypoglycemia without coma, without long-term current use of insulin (CMS/HCC); Dumping syndrome; Migraine without aura and without status migrainosus, not intractable (CMS/HCC); 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CMS/HCC); Vitamin D insufficiency; Encounter for vitamin deficiency screening; History of gastric bypass Start: 04-02-2024 End: 04-02-2024 ambulatory NONA L CUTLER Not Available Start: 03-29-2024 ambulatory Anson Yi Irene ava DO Facility:[facility] Start: 03-14-2024 End: 03-14-2024 Telephone encounter Bing Britt MA [facility] Comment on above: Ubrelvy Denied Start: 03-13-2024 End: 03-13-2024 Office outpatient new 45 minutes Marisa Bowers RADIOLOGICAL ENGINEER Work Phone: [facility] Comment on above: Chronic migraine wit hout aura without status migrainosus, not intractable (CMS/HCC) (Primary Dx); Seizure (CMS/HCC) Start: 03-13-2024 End: 03-13-2024 ambulatory MARISA BOWERS Not Available Start: 01-03-2024 End: 01-03-2024 ambulatory Anson Patiño DO Facility:[facility] Start: 12-13-2023 ambulatory Anson escalante DO Facility:[facility] Start: 09-23-2023 End: 09-23-2023 ambulatory Anson Haynesy DO Facility:[facility] Start: 07-21-2023 End: 07-21-2023 ambulatory Lorin Traylor SOCCER BALL ASSEMBLER-SHELL CORE AND MOLDING SUPERVISOR Facility:[facility] Start: 06-27-2023 End: 06-27-2023 ambulatory [facility] Start: 04-22-2023 End: 04-22-2023 ambulatory Jaquelin Schwab [facility] Work Phone: [facility] Start: 04-22-2023 End: 04-22-2023 Patient encounter procedure Jaquelin Schwab [facility] Work Phone: [facility] Start: 03-07-2023 End: 03-07-2023 ambulatory [facility] Start: 12-27-2022 End: 12-27-2022 ambulatory Katarina Niraj RPh,PharmD [facility] Start: 12-27-2022 Patient encounter procedure Shanita jenkins Niraj RPh,PharmD [facility] Start: 12-23-2022 End: 12-23-2022 ambulatory SU [facility] Start: 05-26-2022 ambulatory LORIN CLEEMPUT Facility:[facility] Start: 05-26-2022 End: 05-26-2022 Office outpatient new 60 minutes Sanket Medina MD Work Phone: [facility] Comment on above: Focal epilepsy (Prim romeo Dx); Complicated migraine; Reversible cerebrovascular vasoconstriction syndrome Start: 05-11-2022 ambulatory LORIN CLEEMPUT Facility:[facility] Start: 03-29-2021 End: 03-29-2021 Emergency department patient visit Priyanka Angelo MD Facility:[facility] Start: 01-04-2020 End: 01-04-2020 Patient encounter procedure JEANNIE GARCIA [facility] Start: 01-04-2020 End: 01-04-2020 Subsequent hospital visit by physician Jeannie Garcia Work Phone: [facility] [place] Start: 01-01-2020 End: 01-06-2020 Patient encounter procedure JUAN A REDDING [facility] Start: 01-01-2020 End: 01-05-2020 Subsequent hospital visit by physician Laura Vidalid19 Pat Screening Schedule [facility] Comment on above: Pre-op testing Start: 12-15-2019 End: 12-18-2019 Evaluation and management of inpatient VIELKA LARSON IV [facility] Start: 12-15-2019 End: 12-18-2019 Evaluation and management of inpatient Tobias Zavala Work Phone: [address] Onc/Med Surg Comment on above: Intussusception (HCC ) (Primary Dx); S/P laparoscopic surgery Start: 07-29-2019 End: 07-29-2019 Emergency department patient visit [facility] Start: 07-29-2019 End: 07-29-2019 Emergency department patient visit [facility] Work Phone: [facility] ED Comment on above: Evaluation for remov al of FLYNN drains (Primary Dx); Intractable episodic headache, unspecified headache type; Nausea; Yeast vaginitis Start: 07-23-2019 End: 07-24-2019 Emergency department patient visit VENICE CABALLERO [facility] Start: 07-23-2019 End: 07-23-2019 Emergency department patient visit Venice Caballero MD Work Phone: [facility] Comment on above: Abscess, intra-abdom inal, postoperative (Primary Dx); Yeast infection Start: 07-23-2019 End: 07-23-2019 Emergency department patient visit [facility] Start: 07-23-2019 End: 07-23-2019 Emergency department patient visit [facility] ED Comment on above: Intra-abdominal absc ess (HCC) (Primary Dx) Procedures Date Procedure Procedure Detail Performing Clinician Start: 04-02-2024 Hemoglobin glycosylated a1c Nona Landry DO Work Phone: Start: 01-29-2021 End: 04-02-2024 H/O: hysterectomy History of hysterectomy Nona Bass O Work Phone: Start: 01-04-2020 DISCHARGE PATIENT VENICE CABALLERO Start: 01-04-2020 Level iv surg pathology gross&microscopic exam VENICE HAILEY Start: 01-04-2020 BEDREST VENICE HAILEY Start: 01-04-2020 Continuous pulse oximetry VENICE HAILEY Start: 01-04-2020 ENCOURAGE DEEP BREATHING AND COUGHING VENICE HAILEY Start: 01-04-2020 INITIATE OXYGEN THERAPY PROTOCOL VENICE HAILEY Start: 01-04-2020 NOTIFY PHYSICIAN (SPECIFY) VENICE CABALLERO Start: 01-04-2020 NURSING COMMUNICATION VENICE CABALLERO Start: 01-04-2020 VITAL SIGNS VENICE HAILEY Start: 01-01-2020 COVID-19 AMBULATORY TOBIAS BOBROV Start: 01-01-2020 COVID-19 AMBULATORY Juan A Redding Work Phone: Start: 12-18-2019 INITIATE OXYGEN THERAPY PROTOCOL VENICE HAILEY Start: 12-18-2019 DISCHARGE PATIENT VENICE CABALLERO Start: 12-18-2019 INTAKE AND OUTPUT VENICE HAILEY Start: 12-17-2019 DIET GENERAL VENICE HAILEY Start: 12-17-2019 MISCELLANEOUS NURSING CARE ORDER (SPECIFY) VENICE CABALLERO Start: 12-17-2019 TRANSFER PATIENT VENICE CABALLERO Start: 12-17-2019 End: 12-17-2019 LAPAROSCOPY EXPLORATORY Jeannie Mathis on Work Phone: Start: 12-17-2019 INITIATE OXYGEN THERAPY PROTOCOL VENICE HAILEY Start: 12-17-2019 INTAKE AND OUTPUT VENICE HAILEY Start: 12-16-2019 INITIATE OXYGEN THERAPY PROTOCOL VENICE HAILEY Start: 12-16-2019 Radiologic exam abdomen 1 view VENICE HAILEY Start: 12-16-2019 Comprehensive metabolic panel VENICE HAILEY [...] SIGNS VENICE CABALLERO Start: 12-15-2019 COVID-19 VENICE CABALLERO Start: 12-15-2019 PATIENT STATUS (FROM ED OR [...] HOGAN Start: 07-29-2019 ED NURSING COMMUNICATION TOBIAS DODGE V Start: 07-29-2019 Radiologic exam chest 2 views TOBIAS HOGAN Start: 07-29-2019 Blood count complete auto&auto difrntl wbc TOBIAS HOGAN Start: 07-29-2019 Gonadotropin chorionic qualitative TOBIAS HOGAN Start: 07-29-2019 Ecg routine ecg w/least 12 lds w/i&r TOBIAS HOGAN Start: 07-29-2019 ED NURSING COMMUNICATION TOBIAS DODGE V Start: 07-29-2019 Radiologic exam chest 2 [...] abdomen & pelvis w/contrast material Krishna A Dustinuda PA Work Phone: Start: 07-23-2019 Comprehensive metabolic panel Krishna Luke Dustinuda PA Work Phone: Start: 07-23-2019 Urinalysis microscopic only Krishna A Dustinuda PA Work Phone: Start: 07-23-2019 Urnls dip stick/tablet rgnt auto w/o microscopy Krishna Butler Hammuda PA Work Phone: Start: 06-29-2016 End: 04-02-2024 H/O: section History of Nona Landry DO Work Phone: Plan of Treatment Date Care Activity Detail Author Start: 04-10-2025 Urine screening for protein Diabetes: Urine Protein Screening [facility] Start: 08-14-2024 End: 08-14-2024 Patient encounter procedure 08/14/2024 10:20 AM EST Office Visit [facility] [address] [place] [id number] Mela Santos PA [address] [facility] [address] [place], [place] [id number] [facility] Start: 08-09-2024 End: 08-09-2024 Patient encounter procedure 08/09/2024 3:20 PM EST Office Visit [facility] [address] [place] [phone] Nona Landry, DO [address] [place], [place] [id number] [facility] Start: 07-02-2024 Hemoglobin A1c measurement Diabetes: Hemoglobin A1C [facility] Start: 06-18-2024 End: 06-18-2024 Patient encounter procedure 06/18/2024 3:20 PM EST Office Visit [place] [id number] [place] [phone] Marisa Bowers, RADIOLOGICAL ENGINEER [address] [place] [address] [facility] Start: 05-10-2024 End: 05-10-2024 Patient encounter procedure [facility] Comment on above: Arrived Start: 05-08-2024 End: 05-08-2024 Patient encounter procedure 05/08/2024 9:20 AM EDT Office Visit [facility] [address] [place] [phone] Nona Landry, DO [address] [place], [place] [address] [facility] Start: 04-02-2024 End: 04-02-2025 25-hydroxyvitamin D3 [Mass/volume] in Serum or Plasma Vitamin D 25 hydroxy Total Lab Routine Vitamin D insufficiency Expected: 04/02/2024 (Approximate), Expires: 04/02/2025 [facility] Work Phone: Comment on above: Expected: 04/02/2024 (Approximate), Expires: 04/02/2025 Start: 04-02-2024 End: 04-02-2025 CBC W Auto Differential panel - Blood CBC and differential Lab Routine Type 2 diabetes mellitus with hypoglycemia without coma, without long-term current use of insulin ([facility]) Expected: 04/02/2024 (Approximate), Expires: 04/02/2025 [facility] Comment on above: Expected: 04/02/2024 (Approximate), Expires: 04/02/2025 Start: 04-02-2024 End: 04-02-2025 Cobalamin (Vitamin B12) [Mass/volume] in Serum or Plasma Vitamin B12 Lab Routine Dumping syndrome Encounter for vitamin deficiency screening History of gastric bypass Expected: 04/02/2024 (Approximate), Expires: 04/02/2025 [facility] Comment on above: Expected: 04/02/2024 (Approximate), Expires: 04/02/2025 Start: 04-02-2024 End: 04-02-2025 Comprehensive metabolic 2000 panel - Serum or Plasma Comprehensive metabolic panel Lab Routine Type 2 diabetes mellitus with hypoglycemia without coma, without long-term current use of insulin ([facility]) Expected: 04/02/2024 (Approximate), Expires: 04/02/2025 [facility] Comment on above: Expected: 04/02/2024 (Approximate), Expires: 04/02/2025 Start: 04-02-2024 End: 04-02-2025 Lipid 1996 panel - Serum or Plasma Lipid panel Lab Routine Type 2 diabetes mellitus with hypoglycemia without coma, without long-term current use of insulin ([facility]) Expected: 04/02/2024 (Approximate), Expires: 04/02/2025 [facility] Comment on above: Expected: 04/02/2024 (Approximate), Expires: 04/02/2025 Start: 04-02-2024 End: 04-02-2025 Thyrotropin [Units/volume] in Serum or Plasma Tsh+free t4 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[facility]) Expected: 04/02/2024 (Approximate), Expires: 04/02/2025 [facility] Comment on above: Expected: 04/02/2024 (Approximate), Expires: 04/02/2025 Start: 04-02-2024 End: 04-02-2024 Patient encounter procedure 04/02/2024 9:20 AM EDT Office Visit [facility] [address] [place] [id number] Nona Landry DO [address] [place], [place] [id number] Arrived [facility] Comment on above: Arrived Start: 03-25-2024 Influenza vaccination INFLUENZA VACC INE (#1) [facility] Start: 03-13-2024 End: 03-13-2025 Basic metabolic 1998 panel - Serum or Plasma Basic metabolic panel Lab Routine Seizure (CMS/HCC) Expected: 03/13/2024 (Approximate), Expires: 03/13/2025 [facility] Work Phone: Comment on above: Expected: 03/13/2024 (Approximate), Expires: 03/13/2025 Start: 03-13-2024 End: 03-13-2025 Levetiracetam level Levetiracetam level Lab Routine Seizure ([facility]) Expected: 03/13/2024 (Approximate), Expires: 03/13/2025 [facility] Comment on above: Expected: 03/13/2024 (Approximate), Expires: 03/13/2025 Start: 05-05-2023 End: 05-05-2023 Patient encounter procedure 05/05/2023 2:30 PM EDT Office Visit [facility] [address] [place] [address] Argentina Diane MD [address] [place] [address] [facility] Start: 03-25-2023 COVID-19 VACCINE ( season) COVID-19 VACCINE () [facility] Start: 03-25-2023 Influenza vaccination INFLUENZ A VACCINE (Season Ended) [facility] Start: 12-08-2022 End: 12-08-2022 Patient encounter procedure 12/08/2022 Office Visit Neurology Sanket Medina MD [address] [place] [phone] [facility] Start: 08-10-2022 End: 08-10-2022 Patient encounter procedure 08/10/2022 Office Visit Neurology Argentina Diane MD [address] [place] [address] [facility] Start: 03-25-2022 Influenza vaccination INFLUENZA VACC INE (#1) [facility] Start: 03-25-2020 Influenza vaccination Flu vacc ine (Season Ended) [place], [place] Start: 03-25-2019 Influenza vaccination Flu vaccine (# 1) [facility] Work Phone: Start: 2018 Screening for malign ant neoplasm of cervix [facility] Start: 2009 Cervical cancer screen Cervical canc er screen [facility] [employer] Phone: Start: 2009 Screening for malign ant neoplasm of cervix [facility] Start: 10-25-2007 DTaP/Tdap/Td vaccine (1 - Tdap) DTaP/Tdap/Td vaccine (1 - Tdap) [place], [place] Start: 10-25-2007 Hepatitis B vaccination HEP B VACCINE (1 of 3 - 19+ 3-dose series) [facility] Start: 10-25-2007 Third diphtheria, tetanus and acellular pertussis (DTaP) vaccination TDAP (ADULT) [facility] Start: 10-25-2007 Urine screening for protein Diabetes: Urine Protein Screening [facility] Start: 2006 Tetanus vaccination TETANUS [facility] Start: 10-25-2003 HIV screen HIV screen [facility] Work Phone: Start: 10-25-2003 HIV screening [facility] Start: 10-25-1999 DTaP/Tdap/Td vaccine (1 - Tdap) DTaP/Tdap/Td vaccine (1 - Tdap) [employer] Phone: Start: 1998 Glaucoma screening Diabetes: R etinopathy Screening [facility] Start: 1989 Varicella vaccine (1 of 2 - 2-dose childhood series) Varicella vaccine (1 of 2 - 2-dose childhood series) [facility]: Start: 04-25-1989 COVID-19 VACCINE (#1) COVID-19 VACCI NE (#1) [facility] Start: 1988 Hepatitis C screening HEPATITI S C VIRUS SCREENING [facility] Start: 1988 Tetanus vaccination TETANUS [facility] EKG 12 Lead EKG 12 Lead ECG STAT 07/29/2019 2:25 PM EST [employer] Phone: Initiate Oxygen Ther apy Protocol [facility] [place] Comment on above: Daily until disconti nued starting 12/15/2019 Daily until disconti nued starting 01/04/2020 End: 07-29-2019 Levetiracetam Level Levetiracetam Level Lab STAT One Time for 1 Occurrences starting 07/29/2019 until 07/29/2019 [facility] Phone: Comment on above: One Time for 1 Occur rences starting 07/29/2019 until 07/29/2019 Levetiracetam Level Levetiraceta m Level Lab STAT 07/29/2019 3:45 PM EST [employer] Phone: Phase I & II - meter ed glucose Phase I & II - metered glucose Point of Care Testing Routine As Needed until discontinued starting 01/04/2020 [facility] Comment on above: As Needed until disc ontinued starting 01/04/2020 Surgical Pathology Surgical Path ology Lab Routine Release Upon Ordering for 1 Occurrences starting 01/04/2020 [facility] Comment on above: Release Upon Orderin g for 1 Occurrences starting 01/04/2020 End: 07-29-2019 Topiramate Level Topiramate Level Lab Routine One Time for 1 Occurrences starting 07/29/2019 until 07/29/2019 [employer] Work Phone: Comment on above: One Time for 1 Occur rences starting 07/29/2019 until 07/29/2019 Topiramate Level Topiramate Leve l Lab STAT 07/29/2019 3:45 PM EST [employer] Work Phone: Immunizations Immunization Date Immunization Notes Care Provider [facility] 04-01-2023 influenza, injectabl e, quadrivalent, preservative free Marisa Bowers RADIOLOGICAL ENGINEER Work Phone: [facility] 04-01-2023 varicella virus vaccine Marisa Bowers RADIOLOGICAL ENGINEER Work Phone: [facility] 04-01-2023 influenza virus vaccine, unspecified formulation Jaquelin Schwab [facility] Work Phone: [facility] 04-29-2021 influenza virus vaccine, unspecified formulation Sanket Medina MD Work Phone: [facility] Payers Date Payer Category Payer Medicaid (Managed Care) [facility] MEDICAID [id number] 2022 Unknown [id number] 2022 Medicaid [id number] 2021 Medicaid [id number] 2021 Private Health Insurance 2014 Private Health Insurance [facility] xxxxxxxxx 2014-Present [phone] [address] [place] [address] xxxxxxxxx [id number] 2014 Private Health Insurance [id number] 1988 Unknown [id number] 2.16.840.1.557052.3.579.2. 173 1988 Unknown [id number] 2.16.840.1.789310.3.579.2. 175 1988 Unknown [id number] 2.16.840.1.348935.3.579.2. 175 1988 Unknown [id number] 2.16.840.1.262949.3.579.2. 196 1988 Unknown [id number] 2.16.840.1.828369.3.579.2. 594 1988 Unknown [id number] 2.16.840.1.843854.3.579.2. 594 1988 Unknown [id number] 2.16.840.1.923723.3.579.2. 1259 1988 Unknown [id number] 2.16.840.1.467586.3.579.2. 1259 1988 Unknown [id number] 2.16.840.1.253641.3.579.2. 1259 1988 Unknown [id number] 2.16.840.1.408960.3.579.2. 196 1988 Unknown [id number] 2.16.840.1.383356.3.579.2. 196 1988 Unknown [id number] 2.16.840.1.679289.3.579.2. 196 1988 Unknown [id number] 2.16.840.1.348647.3.579.2. 196 1988 Unknown [id number] 2.16.840.1.903266.3.579.2. 196 1988 Unknown [id number] 2.16.840.1.727957.3.579.2. 196 1988 Unknown [id number] 2.16.840.1.804995.3.579.2. 196 1988 Unknown [id number] 2.16.840.1.189934.3.579.2. 727 1988 Unknown [id number] 2.16.840.1.938362.3.579.2. 727 1988 Unknown [id number] 2.16.840.1.085370.3.579.2. 727 Social History Date Type Detail Facility Start: 12-18-2019 End: 03-09-2024 Tobacco smoking status UTIS Never smoker [employer] Phone: Start: 12-18-2019 End: 05-26-2022 Alcohol intake Ex-drinker (finding) [employer] Phone: Start: 07-23-2019 History SDOH Alcohol Frequency 1 [employer] Phone: Start: 1988 Sex Assigned At Not on file [employer] Phone: Exposure to SARS-CoV -2 (event) Unable to assess [employer] [facility] [place] Start: 01-04-2020 End: 05-10-2024 Alcohol intake Lifetime non-drinker (finding) [employer] [facility] Start: 1988 Sex Assigned At Female [facility] Work Phone: Start: 12-29-2021 Tobacco smoking status UTIS Ex-smoker [facility] History of tobacco use Current smoker [facility] History of tobacco use Cigarette Smoker [facility] Start: 12-29-2021 End: 03-09-2024 Tobacco use and exposure Smokeless tobacco non-user [facility] Start: 05-26-2022 End: 03-27-2024 History of Social function [facility] Start: 05-26-2022 End: 03-27-2024 Tobacco use panel [facility] Start: 09-12-2022 Gender identity Identifies as female gender (finding) [facility] How often do you nee d to have someone help you when you read instructions, pamphlets, or other written material from your doctor or pharmacy [SILS] Never [facility] Do you belong to any clubs or organizations such as scientologist groups, unions, fraternal or athletic groups, or [...] to get more. Never true [facility] Tobacco smoking status No Smokin g Status Entered [facility] Goals Date Patient Goal Desired Activity /State Functional Status Date Assessment Result Facility 06-30-2024 Functional Status N/A [facility] Clinical Notes 07-23-2019 to 06-30-2024 Nona Landry DO - 05/10/2024 4:00 PM Claudia Landry DO - 04/02/2024 9:20 AM EDTTelephone Encounter - Marisa Bowers NP - 03/14/2024 8:50 AM EDTJulio César Pineda - 04/22/2023 10:06 AM EDT Note Date & Type Note Facility 06-30-2024 Hospital Discharge instructions Patient Education 06/30/2024 18:22:37 Nausea and Vomiting, Adult, Gfpf-tc-Xcdg Nausea and Vomiting, Adult Nausea is feeling that you have an upset stomach and that you are about to vomit. Vomiting is when food in your stomach forcefully comes out of your mouth. Vomiting can make you feel weak. If you vomit, or if you are not able to drink enough fluids, you may not have enough water in your body (get dehydrated). If you do not have enough water in your body, you may: Feel tired. Feel thirsty. Have a dry mouth. Have cracked lips. Pee (urinate) less often. Older adults and people with other diseases or a weak body defense system (immune system) are at higher risk for not having enough water in the body. If you feel like you may vomit or you vomit, it is important to follow instructions from your doctor about how to take care of yourself. Follow these instructions at home: Watch your symptoms for any changes. Tell your doctor about them. Eating and drinking Take an ORS (oral rehydration solution). This is a drink that is sold at pharmacies and stores. Drink clear fluids in small amounts as you are able, such as: ?Water. ?Ice chips. ?Fruit juice that has water added (diluted fruit juice). ?Low-calorie sports drinks. Eat bland, eaqq-ca-lqqyqe foods in small amounts as you are able, such as: ?Bananas. ?Applesauce. ?Rice. ?Low-fat (lean) meats. ?Renick. ?Crackers. Avoid drinking fluids that have a lot of sugar or caffeine in them. This includes energy drinks, sports drinks, and soda. Avoid alcohol. Avoid spicy or fatty foods. General instructions Take oarb-lsp-osqxqmt and prescription medicines only as told by your doctor. Drink enough fluid to keep your pee (urine) pale yellow. Wash your hands often with soap and water for at least 20 seconds. If you cannot use soap and water, use hand solution professional. Make sure that everyone in your home washes their hands well and often. Rest at home until you feel better. Watch your condition for any changes. Take slow and deep breaths when you feel like you may vomit. Keep all follow-up visits. Contact a doctor if: Your symptoms get worse. You have new symptoms. You have a fever. You cannot drink fluids without vomiting. You feel like you may vomit for more than 2 days. You feel light-headed or dizzy. You have a headache. You have muscle cramps. You have a rash. You have pain while peeing. Get help right away if: You have pain in your chest, neck, arm, or jaw. You feel very weak or you faint. You vomit again and again. You have vomit that is bright red or looks like black coffee grounds. You have bloody or black poop (stools) or poop that looks like tar. You have a very bad headache, a stiff neck, or both. You have very bad pain, cramping, or bloating in your belly (abdomen). You have trouble breathing. You are breathing very quickly. Your heart is beating very quickly. Your skin feels cold and clammy. You feel confused. You have signs of losing too much water in your body, such as: ?Dark pee, very little pee, or no pee. ?Cracked lips. ?Dry mouth. ?Sunken eyes. ?Sleepiness. ?Weakness. These symptoms may be an emergency. Get help right away. Call 911. Do not wait to see if the symptoms will go away. Do not drive yourself to the hospital. Summary Nausea is feeling that you have an upset stomach and that you are about to vomit. Vomiting is when food in your stomach comes out of your mouth. Follow instructions from your doctor about eating and drinking. Take lywv-jpt-qieztgu and prescription medicines only as told by your doctor. Contact your doctor if your symptoms get worse or you have new symptoms. Keep all follow-up visits. This information is not intended to replace advice given to you by your health care provider. Make sure you discuss any questions you have with your health care provider. Document Revised: 01/15/2022 Document Reviewed: 01/15/2022 [employer] ([employer]) Patient Education 2023 [employer]. Follow Up Care 06/30/2024 16:57:21 With:NONA LANDRY Address: [facility] [place] [address] [phone] Business (1) When:07/03/2024 18:22:18 Comments:Call to schedule a follow-up appointment with your family physician in the next 2 to 3 days. Use the Phenergan as needed for nausea. Return to the ED with any new or worsening symptoms. [facility] 06-30-2024 Note ED Patient Education Note Gastroenterology Nausea and Vomiting, Adult Nausea is feeling that you have an upset stomach and that you are about to vomit. Vomiting is when food in your stomach forcefully comes out of your mouth. Vomiting can make you feel weak. If you vomit, or if you are not able to drink enough fluids, you may not have enough water in your body (get dehydrated). If you do not have enough water in your body, you may: ??? Feel tired. ??? Feel thirsty. ??? Have a dry mouth. ??? Have cracked lips. ??? Pee (urinate) less often. Older adults and people with other diseases or a weak body defense system (immune system) are at higher risk for not having enough water in the body. If you feel like you may vomit or you vomit, it is important to follow instructions from your doctor about how to take care of yourself. Follow these instructions at home: Watch your symptoms for any changes. Tell your doctor about them. Eating and drinking ??? Take an ORS (oral rehydration solution). This is a drink that is sold at pharmacies and stores. ??? Drink clear fluids in small amounts as you are able, such as: ? Water. ? Ice chips. ? Fruit juice that has water added (diluted fruit juice). ? Low-calorie sports drinks. ??? Eat bland, qdhe-ou-ofmxzz foods in small amounts as you are able, such as: ? Bananas. ? Applesauce. ? Rice. ? Low-fat (lean) meats. ? Renick. ? Crackers. ??? Avoid drinking fluids that have a lot of sugar or caffeine in them. This includes energy drinks, sports drinks, and soda. ??? Avoid alcohol. ??? Avoid spicy or fatty foods. General instructions ??? Take qnqt-fxf-zatxydi and prescription medicines only as told by your doctor. ??? Drink enough fluid to keep your pee (urine) pale yellow. ??? Wash your hands often with soap and water for at least 20 seconds. If you cannot use soap and water, use hand solution professional. ??? Make sure that everyone in your home washes their hands well and often. ??? Rest at home until you feel better. ??? Watch your condition for any changes. ??? Take slow and deep breaths when you feel like you may vomit. ??? Keep all follow-up visits. Contact a doctor if: ??? Your symptoms get worse. ??? You have new symptoms. ??? You have a fever. ??? You cannot drink fluids without vomiting. ??? You feel like you may vomit for more than 2 days. ??? You feel light-headed or dizzy. ??? You have a headache. ??? You have muscle cramps. ??? You have a rash. ??? You have pain while peeing. Get help right away if: ??? You have pain in your chest, neck, arm, or jaw. ??? You feel very weak or you faint. ??? You vomit again and again. ??? You have vomit that is bright red or looks like black coffee grounds. ??? You have bloody or black poop (stools) or poop that looks like tar. ??? You have a very bad headache, a stiff neck, or both. ??? You have very bad pain, cramping, or bloating in your belly (abdomen). ??? You have trouble breathing. ??? You are breathing very quickly. ??? Your heart is beating very quickly. ??? Your skin feels cold and clammy. ??? You feel confused. ??? You have signs of losing too much water in your body, such as: ? Dark pee, very little pee, or no pee. ? Cracked lips. ? Dry mouth. ? Sunken eyes. ? Sleepiness. ? Weakness. These symptoms may be an emergency. Get help right away. Call 911. ??? Do not wait to see if the symptoms will go away. ??? Do not drive yourself to the hospital. Summary ??? Nausea is feeling that you have an upset stomach and that you are about to vomit. Vomiting is when food in your stomach comes out of your mouth. ??? Follow instructions from your doctor about eating and drinking. ??? Take fedk-mco-dcurmus and prescription medicines only as told by your doctor. ??? Contact your doctor if your symptoms get worse or you have new symptoms. ??? Keep all follow-up visits. This information is not intended to replace advice given to you by your health care provider. Make sure you discuss any questions you have with your health care provider. Document Revised: 01/15/2022 Document Reviewed: 01/15/2022 [employer] ([employer]) Patient Education ? 2023 [employer]. [facility] 05-10-2024 History of Present illness Narrative Images [...] states that she does not feel the Januvia is helping. I have reviewed and reconciled [...] coma, without long-term current use of insulin ([facility]) Reactive hypoglycemia Dumping syndrome Attention deficit hyperactivity disorder (ADHD), unspecified ADHD type ([facility]/HCC) Mild episode of recurrent major depressive disorder (HCC) ([facility]) - mirtazapine (Remeron) 30 MG tablet; Take 1 tablet (30 mg) by mouth at bedtime Sample of ozempic given today, she will notify me on progress avoiding high and low BP Nona Landry DO Patient Active Problem List Diagnosis Chronic fatigue Anxiety disorder Depression with anxiety PTSD (post-traumatic stress disorder) ([facility]/HCC) 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CMS/HCC) History of gastric bypass Hypoglycemia Celiac disease ([facility]/HCC) Migraine without aura and without status migrainosus, not intractable ([facility]CC) PCOS (polycystic ovarian syndrome) Reactive hypoglycemia Seizures ([facility]/HCC) Vitamin D insufficiency Past Medical History: Diagnosis Date ADHD (attention deficit hyperactivity disorder) ([facility]) Cervical radiculitis 08/11/2021 Added automatically from request for surgery [id number] Cervical shortening affecting 07/21/2016 Cervical spondylosis without myelopathy 01/28/2021 Cervicalgia 01/28/2021 Gastrojejunal ulcer 01/21/2020 History of hysterectomy 01/29/2021 Menorrhagia with irregular cycle 04/02/2024 Migraine ([facility]/HCC) 2005 SAH (subarachnoid hemorrhage) ([facility]CC) 12/08/2021 Seizures ([facility]) 2004 documented in this encounter [facility] 04-02-2024 History of Present illness Narrative Images from the original note were not included. SUBJECTIVE: HPI: Rachid Mojica is a 33 y.o. female who presents with chief complaint of Establish Care Pt states she is here to establish care. Pt states she has blood sugar issues. Pt states that since she has a full bypass done her blood sugar will spike up to 300 or go down so low her meter wouldn't read it would just say low. Pt states she use to have a Dexcom and glucometer. Pt state that the last 6 month she has gained 40 lbs. Pt states she had attempted to change her diet but to no success. I have reviewed and reconciled the history and medication list with the patient today. Depression: Not at risk (04/02/2024) PHQ-2 PHQ-2 Score: 0 reports that she has never smoked. She has never used smokeless tobacco. She reports that she does not drink alcohol and does not use drugs. OBJECTIVE: 03/13/2024 1:27 PM 04/02/2024 9:29 AM Vitals BMI 29.72 kg/m2 BSA (m2) 1.93 m2 Systolic 104 126 Diastolic 60 74 Heart Rate 92 SpO2 97 % Temp 97.2 F Height (in) 5' 5 Weight (lb) 178 178.6 Visit Report Report Report Physical Exam Constitutional: General: She is not in acute distress. Appearance: She is not ill-appearing. HENT: Head: Normocephalic. Cardiovascular: Rate and Rhythm: Normal rate and regular rhythm. Heart sounds: No murmur heard. Pulmonary: Effort: Pulmonary effort is normal. Breath sounds: Normal breath sounds. No wheezing. Abdominal: General: Abdomen is flat. There is no distension. Tenderness: There is no abdominal tenderness. Musculoskeletal: General: No deformity. Normal range of motion. Cervical back: Normal range of motion. Skin: General: Skin is warm and dry. Neurological: General: No focal deficit present. Mental Status: She is alert and oriented to person, place, and time. Psychiatric: Mood and Affect: Mood normal. Behavior: Behavior normal. Thought Content: Thought content normal. Judgment: Judgment normal. Recent Results (from the past 672 hour(s)) POCT glycosylated hemoglobin (Hb A1C) docked device Collection Time: 04/02/24 9:46 AM Result Value Ref Range Hemoglobin A1C 5.0 ASSESSMENT AND PLAN: Assessment/Plan Diagnoses and all orders for this visit: Type 2 diabetes mellitus with hypoglycemia without coma, without long-term current use of insulin ([facility]) - SITagliptin (Januvia) 50 MG tablet; Take 1 tablet (50 mg) by mouth Daily - Continuous Glucose Sensor (FreeStyle Adrian 3 Sensor) misc; 1 each every 14 (fourteen) days Reactive hypoglycemia - POCT glycosylated hemoglobin (Hb A1C) docked device - Continuous Glucose Sensor (FreeStyle Adrian 3 Sensor) misc; 1 each every 14 (fourteen) days Dumping syndrome Did not tolerate metformin years ago, GLP-1 had worked well in the past, but could no longer get coverage. Blood sugar spikes after eating regularly above 300 per prev CGM use. High protein diet with medication to avoid spikes in glucose discussed today, follow up in 1 month Patient Active Problem List Diagnosis Chronic fatigue Anxiety disorder Depression with anxiety PTSD (post-traumatic stress disorder) ([facility]) 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[facility]) History of gastric bypass Hypoglycemia Celiac disease ([facility]) Migraine without aura and without status migrainosus, not intractable ([facility]) PCOS (polycystic ovarian syndrome) Reactive hypoglycemia Seizures ([facility]) Vitamin D insufficiency Past Medical History: Diagnosis Date ADHD (attention deficit hyperactivity disorder) ([facility]) Cervical radiculitis 08/11/2021 Added automatically from request for surgery [id number] Cervical shortening affecting 07/21/2016 Cervical spondylosis without myelopathy 01/28/2021 Cervicalgia 01/28/2021 Gastrojejunal ulcer 01/21/2020 History of hysterectomy 01/29/2021 Menorrhagia with irregular cycle 04/02/2024 Migraine ([facility]) 2006 SAH (subarachnoid hemorrhage) ([facility]) 12/08/2021 Seizures ([facility]) 2004 documented in this encounter [facility] 03-14-2024 Telephone encounter Note We will try Nurtec. Sent to the pharmacy. Patient notified via phone message. [facility] 03-14-2024 Miscellaneous Notes We will try Nurtec. Sent to the pharmacy. Patient notified via phone message. Ubrelvy denied for the following reason: Coverage is provided when the member has a history of at least 14 days of therapy with at least one preferred oral CGRP antagonist (type of medication used to treat migraine), Nurtec ODT (oral disintegrating tablet) (which requires step therapy of at least 14 days of therapy of two preferred medications). The [place] Policy for Medical Necessity as posted on the [facility] website and [place] Preferred Drug List criteria were reviewed and per [place] Administrative Code Rule 5160-1-01 (C) and (B), a medically necessary service must include: generally accepted standards of medical practice, be clinically appropriate in administration, treatment and outcome and be the lowest cost alternative to effectively treat the condition. Please contact your provider to assist you with other treatment options that might be covered under your benefit package, or other services that might be available through the community. documented in this encounter [facility] 03-14-2024 Telephone encounter Note Ubrelvy denied for the following reason: Coverage is provided when the member has a history of at least 14 days of therapy with at least one preferred oral CGRP antagonist (type of medication used to treat migraine), Nurtec ODT (oral disintegrating tablet) (which requires step therapy of at least 14 days of therapy of two preferred medications). The [place] Policy for Medical Necessity as posted on the [facility] website and [place] Preferred Drug List criteria were reviewed and per [place] Administrative Code Rule 5160-1-01 (C) and (B), a medically necessary service must include: generally accepted standards of medical practice, be clinically appropriate in administration, treatment and outcome and be the lowest cost alternative to effectively treat the condition. Please contact your provider to assist you with other treatment options that might be covered under your benefit package, or other services that might be available through the community. [facility] 03-13-2024 History of Present illness Narrative Images from the original note were not included. Parish Mojica is a 33 y.o. year old female No chief complaint on file. Past Medical History: Diagnosis Date ADHD (attention deficit hyperactivity disorder) ([facility]) Migraine (CMS/HCC) 2006 Seizures (CMS/HCC) 2004 Past Surgical History: Procedure Laterality Date MR ANGIOGRAM HEAD WO IV CONTRAST 12/09/2021 MR ANGIOGRAM HEAD WO IV CONTRAST 12/09/2021 Family History Problem Relation Name Age of Onset Dementia Maternal Grandmother Ann mcmullen Depression Maternal Grandmother Ann mcmullen Seizures Brother Emir Social History Tobacco Use Smoking status: Never Smokeless tobacco: Never Substance Use Topics Alcohol use: Never Medication Documentation Review Audit Reviewed by Marisa Bowers NP (Nurse Practitioner) on 03/13/24 at 1326 Medication Order Taking? Sig Documenting Provider Last Dose Status cholecalciferol (Vitamin D3) 25 MCG (1000 UT) tablet [id number] Historical Provider, Active dexmethylphenidate XR (Focalin XR) 10 MG 24 hr capsule [id number] Take 20 mg by mouth Daily Historical ProviderMD Active gabapentin (Neurontin) 200 mg split tablet [id number] Take 200 mg by mouth Daily Historical ProviderMD Active levETIRAcetam (Keppra) 500 MG tablet [id number] Take 500 mg by mouth in the morning and 500 mg before bedtime. Marisa Bowers NP Active Discontinued 03/13/24 1325 methylphenidate (Ritalin) 10 MG tablet [id number] Historical ProviderMD Active mirtazapine (Remeron) 30 MG tablet [id number] Historical Provider, Active HPI HPI Patient is a 33-year-old female with medical history of gastric bypass surgery in 2012 (lost 230 lbs), chronic back pain, migraines, ADHD and seizures. She is on Keppra 500 mg 1-1/2 tablets twice a day. In November of 2021 she presented to [facility] with a severe headache and vomiting. Earlier that day she received a nerve block for neck pain. Per chart review her and her significant other was arguing with the headache started. She started acting abnormally. She developed a severe frontal headache radiating to the back of her head. She fell 1 week prior with bruising to both of her knees but did not report a head injury at that time. Patient was found to have a subarachnoid hemorrhage in bilateral frontal areas that was very subtle. Right more than the left. She was transferred to [facility] due to concern for a leaking aneurysm. She was given IV Keppra prior to transfer. There was no reported seizures at that time She was diagnosed with seizures when she was 14. Last seizure was 1 1/2 years ago when she was hospitalized. She has no recall of the seizure. She has been told that she loses consciousness, she screams out, she has tonic clonic activity and she has stopped breathing. Her lips have turned blue, she drools. She has bitten her tongue but does not recall incontinence. The seizures generally last 2-3 minutes. She denies warning signs. Afterwards she is tired and confused. It takes her about a day to be back to her normal self. Her brother has seizures. She was Depakote in the past. She used to follow with neurology in [place] and she followed up at [facility]. Her last appointment at [facility] was last year. Her Keppra was increased during the above hospitalization to 750mg BID. She denies any further events since then. She denies side effects of the medications. She states she had an ambulatory EEG in 2021 that was normal. This was done through [facility] in [place]. She was seen at the [facility] on 02/28/2024 with worsening neck and back pain. She was given prednisone and Norflex. She states this is improved. She reports headaches. Headaches occur 5 to 6 days a week. The headaches are on the right side and are pressure in character. They do radiate into her eyes. She has light and sound sensitivity. She does get nauseated with the headaches at times but denies emesis. She denies vision changes with the headaches. She does have occasional neck pain. She states she sleeps well. She does snore at times but denies waking up short of breath. She denies triggers for the headaches. She used to be on Ajoy which controlled her headaches but this was lost with the hospitalization and not readdressed. She was on topamax and fioricet in the past as well. She is on. Ritalin and Focalin per her PCP for ADHD ROS Review of Systems Constitutional: Negative for chills and fever. HENT: Negative for congestion and trouble swallowing. Eyes: Negative for visual disturbance. Respiratory: Negative for chest tightness and shortness of breath. Cardiovascular: Negative for chest pain and palpitations. Gastrointestinal: Negative for diarrhea, nausea and vomiting. Musculoskeletal: Positive for back pain and neck pain. Skin: Negative for rash. Neurological: Positive for tremors and headaches. Negative for dizziness, seizures, speech difficulty and weakness. Psychiatric/Behavioral: Negative for sleep disturbance. Anxiety Objective Visit Vitals BP 104/60 (BP Location: Right arm) Wt 178 lb Smoking Status Never GENERAL Apical RRR, no murmur LS CTA throughout Carotid - no bruit Abdomen soft, BS normal Neurological Exam Mental Status Awake, alert and oriented to person, place and time. Speech is normal. Language is fluent with no aphasia. Attention and concentration are normal. Fund of knowledge is appropriate for level of education. Cranial Nerves CN II: Visual acuity is normal. Visual farrell full to confrontation. CN III, IV, : Extraocular movements intact bilaterally. Normal lids and orbits bilaterally. Pupils equal round and reactive to light bilaterally. CN V: Facial sensation is normal. CN VII: Full and symmetric facial movement. CN VIII: Hearing is normal. CN IX, X: Palate elevates symmetrically. Normal gag reflex. CN XI: Shoulder shrug strength is normal. CN XII: Tongue midline without atrophy or fasciculations. Sensory Light touch is normal in upper and lower extremities. Temperature is normal in upper and lower extremities. Vibration is normal in upper and lower extremities. Coordination Right: Zbuhko-ft-yzib normal. Rapid alternating movement normal.Left: Kgozst-gl-oyid normal. Rapid alternating movement normal. Gait Casual gait is normal including stance, stride, and arm swing. Motor Examination RUE Strength deltoid, biceps, triceps, wrist extensors, wrist extensors, wrist flexor, graduate teacher education strength 5/5. LUE Strength deltoid, biceps, triceps, wrist extensors, wrist extensors, wrist flexor, graduate teacher education strength 5/5. RLE Strength illopsoas, quadriceps, tibialis anterior, and gastrocnemius strength 5/5. LLE Strength illopsoas, quadriceps, tibialis anterior, and gastrocnemius strength 5/5. Tone Normal tone x4 extremities. Reflexes: RUE biceps reflex +2, brachioradialis reflex +2 LUE biceps reflex +2, brachioradialis reflex +2 RLE knee reflex +2, LLE knee reflex +2, Assessment and Plan 33-year-old female with medical history of gastric bypass surgery in 2012 (lost 230 lbs), chronic back pain, migraines, ADHD and seizures. She is on Keppra 500 mg 1-1/2 tablets twice a day. In November of 2021 she presented to [facility] with a severe headache and vomiting. Per chart review her and her significant other was arguing with the headache started. She started acting abnormally. She developed a severe frontal headache radiating to the back of her head. She fell 1 week prior with bruising to both of her knees but did not report a head injury at that time. Patient was found to have a subarachnoid hemorrhage in bilateral frontal areas that was very subtle. Right more than the left. She was transferred to [facility] due to concern for a leaking aneurysm. She was given IV Keppra prior to transfer. There was no reported seizures at that time per the patient. There was concern for RCVS on imaging but repeat imaging showed resolution of SAH and vascular concerns. She was diagnosed with seizures when she was 14. Last seizure was 1 1/2 years ago when she was hospitalized. She has no recall of the seizure. She has been told that she loses consciousness, she screams out, she has tonic clonic activity and she has stopped breathing. Her lips have turned blue, she drools. She has bitten her tongue but does not recall incontinence. The seizures generally last 2-3 minutes. She denies warning signs. Afterwards she is tired and confused. It takes her about a day to be back to her normal self. Her brother has seizures. She was Depakote in the past. She used to follow with neurology in [place] and she followed up at [facility]. Her last appointment at [facility] was last year. Her Keppra was increased during the above hospitalization to 750mg BID. She denies any further events since then. She denies side effects of the medications. She states she had an ambulatory EEG in 2021 that was normal. This was done through [facility] in [place]. We will try to request the records for review. We will continue Keppra 750mg BID for now and check a level and BMP. We will consider en EEG based on record review. She reports headaches. 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 The headaches are on the right side and are pressure in character. They do radiate into her eyes. She has light and sound sensitivity. She does get nauseated with the headaches at times but denies emesis. She denies vision changes with the headaches. She does have occasional neck pain. She states she sleeps well. She does snore at times but denies waking up short of breath. She denies triggers for the headaches. She used to be on Ajoy which controlled her headaches but this was lost with the hospitalization and not readdressed. She was on topamax and fioricet in the past as well. She is on Ritalin and Focalin per her PCP for ADHD. We will restart the Ajovy and use Ubrelvy for abortive therapy. She should avoid triptans due to prior SAH and concern for RCVS. Prior Evaluations 1. CT scan of the head on 07/28/2022 for head trauma was nonacute. 2. CT scan of the head on 12/07/2021 showed mild subarachnoid hemorrhage in the bilateral anterior frontal lobes, right greater than the left. No other acute intracranial findings. MRI scan of the brain on 12/09/2021 was nonacute. No evidence of focal parenchymal hemorrhage. Brain parenchyma itself was normal. Mild suppression in the sulci of the cerebral convexities correlating to the subarachnoid blood products seen on prior CT. No hydrocephalus. 3. CTA of the head and neck on 12/08/2021 showed intracranial vessel irregularity more than expected for age and suspicious for RCVS over vasculopathy. 12/09/2021 MRA of the brain was negative for occlusive disease. This was repeated on 02/22/2022. There was no evidence of subarachnoid hemorrhage at the right frontal lobe. No evidence of reversible cerebrovascular vasoconstriction syndrome. Diagnoses and all orders for this visit: Chronic migraine without aura without status migrainosus, not intractable (CMS/HCC) - fremanezumab (Ajovy) 225 MG/1.5ML auto-injector; Inject 1 pen (225 mg) under the skin every 30 (thirty) days - Ubrogepant (Ubrelvy) 50 MG tablet; Take 1 tablet by mouth if needed (May repeat in 2 hours. Max of 2 tablets in 24 hours.) Seizure (CMS/HCC) - levETIRAcetam (Keppra) 500 MG tablet; Take 1.5 tablets (750 mg) by mouth in the morning and 1.5 tablets (750 mg) before bedtime. - Basic metabolic panel; Future - Levetiracetam level; Future PLAN: Trial Ajovy for headache prevention Trial ubrelvy for abortive therapy of migraines. She should avoid triptans due to prior SAH and concern for RCVS. She should keep a headache journal Continue Keppra 750mg BID for seizure Check a BMP and Keppra level May need to consider weaning or reducing the ritalin and Focalin based on her clinical course Maintain good sleep I counseled the patient on the possible diagnosis, prognosis, and possible treatment options. I will see the patient back in 3 months or sooner if needed, to make further recommendations The nurse practitioner assisted the physician in the development of the history, portions of the physical exam, and implementation of the plan of care under direct physician supervision. Patient seen by Marisa Bowers APRN and Dr Galvan documented in this encounter [facility] 07-12-2023 Note Referral from Soniya Rivero MD to see lead ruby on rails developer for hypoglycemia. Phone number on file is not an active number and call could not be completed. Clinic phone number for dietitian appointment [phone]. [facility] 06-27-2023 Note Attestation signed by Daryn Mckee [...] en Y gastric bypass in 2014 at [place], [place]. She lost about 150 lbs and [...] alarm. Reports Tuesday while working at the [facility] [employer] [facility] she got symptoms of hypoglycemia and [...] She has tri (more content not included)... [facility] 04-22-2023 History of Present illness Narrative [facility] RX OUTREACH ADVANCED: Call Information: Date and Time of Contact: 04/22/2023 10:08 AM Method of Contact: By Phone Contact Type: Prescriptions Contactor: [facility] OP Contactee: Patient Shipping/Pickup: Medicare B Refill?: No Medication Name: Ajovy 225 MG/1.5ML Delivery Method: Air Delivery Location: Home Signature Required: No Mailing/Pickup Date: 04/28/2023 Shipping Address: [address] [place] [address] Contact Info: Specialty ([place]) [phone] [facility] [phone] [facility] [phone] [facility] [phone] Bedside Delivery [facility]) [phone] documented in this encounter [facility] 03-07-2023 Note Attestation signed by Daryn Mckee [...] en Y gastric bypass in 2014 at [place], [place]. She lost about 150 lbs and [...] alarm. Reports Tuesday while working at the [employer] [facility] she got symptoms of hypoglycemia and [...] 2. Reactive hypoglycemia: (more content not included)... [facility] 01-06-2023 Note Patient's number has been unreachable. Will try calling again. [facility] 12-27-2022 Note Attestation signed by Daryn Mckee [...] en Y gastric bypass in 2014 at [place], [place]. She lost about 150 lbs and [...] alarm. Reports Tuesday while working at the [employer] [facility] she got symptoms of hypoglycemia and [...] OGTT done in last 6 months at [facility] where she states she had hyperglycemia [...] consider pharmacological treatment. Will start with acarbose. [facility] 12-27-2022 History of Present illness Narrative [facility] RX OUTREACH ADVANCED: Call Information: Date and Time of Contact: 12/27/2022 2:50 PM Method of Contact: By Phone Contact Type: Prescriptions Contactor: [facility] OP Contactee: Patient Contact Outcome: Left message and Follow-up (Ajovy refill / MMO) Contact Info: Specialty ([place]) [phone] [facility] [phone] [facility] [phone] Greg [phone] Bedside Delivery ([facility]) [phone] [facility] RX OUTREACH ADVANCED: Call Information: Date and Time of Contact: 12/29/2022 12:55 PM Method of Contact: By Phone Contact Type: Prescriptions Contactor: [facility] OP Contactee: Patient Contact Outcome: Left message and Follow-up (Ajovy msot) Contact Info: Specialty ([place]) [phone] [facility] [phone] [facility] [phone] Greg [phone] Bedside Delivery ([facility]) [phone] [facility] RX OUTREACH ADVANCED: Call Information: Date and Time of Contact: 12/29/2022 1:32 PM Method of Contact: By Phone Contact Type: Prescriptions Contactor: Patient Contactee: [facility] OP Shipping/Pickup: Medicare B Refill?: No Medication Name: Ajovy 225MG /1.5ML Delivery Method: Air Delivery Location: Home Signature Required: No Mailing/Pickup Date: 12/30/2022 Shipping Address: [address] Contact Info: Specialty ([place]) [phone] [facility] [phone] [facility] [phone] Greg [phone] Bedside Delivery ([facility]) [phone] [facility] RX OUTREACH ADVANCED: Call Information: Date and Time of Contact: 12/29/2022 1:32 PM Contact Info: Specialty ([place]) [phone] [facility] [phone] [facility] [phone] [facility] [phone] Bedside Delivery ([facility]) [phone] I performed phone call visit for Rachid [...] and frequency. Next dose due 01/03/23 / . Provider visits: Patient has seen their provider [...] PM documented in this encounter [facility] 12-27-2022 Miscellaneous Notes Addended by: JAQUELIN SCHWAB on: 12/29/2022 01:41 PM Modules accepted: Orders documented in this encounter [facility] 12-27-2022 Note Addended by: JAQUELIN SCHWAB on: 12/29/2022 01:41 PM Modules accepted: Orders [facility] 12-27-2022 Note Addended by: JAQUELIN SCHWAB on: 12/29/2022 01:41 PM Modules accepted: Orders [facility] 12-27-2022 Note Addended by: JAQUELIN SCHWAB on: 12/29/2022 01:41 PM Modules accepted: Orders [facility] 12-27-2022 Note Addended by: JAQUELIN SCHWAB on: 12/29/2022 01:41 PM Modules accepted: Orders [facility] 12-23-2022 Note REASON FOR VISIT: Rachid Mojica [...] OGTT done in last 6 months at [facility] where she states she had hyperglycemia [...] the morning., Disp: , Rfl: Dexcom G6 Graphic Illustrator misc, , Disp: , Rfl: Dexcom G6 [...] Hypoglycemia - Gluco (more content not included)... [facility] 05-26-2022 History of Present illness Narrative [facility] HISTORY OF PRESENT ILLNESS Rachid Mojica is a 31 y.o. right handed female with a history of chronic intractable migraines complicated with reversible vasoconstriction syndrome (RCVS), recent event of SAH sec to RCVS who presents to [facility] at [facility] for establishing the care taking [...] Denies any insomnia or excessive sleepiness. 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 Sanket Medina MD [facility] Neurology [facility] Department of Neurology - Epilepsy Division [address] [place] [address] - 7th floor [place] [address] . Total time to complete the visit : 60 minutes (record review, face to face encounter and documentation) . documented in this encounter [facility] 05-26-2022 Instructions Sanket Medina MD - 05/26/2022 11:00 AM EDT Topamax only half tab in morning and full tablet Headache clinic referral documented in this encounter [facility] 07-29-2019 Hospital Discharge instructions Tobias Hogan, - 07/29/2019 Return to the Emergency Department immediately if you develop a fever, vomiting, worsening pain, worsening drainage from the FLYNN drain, or you have any other concerns. Please follow up with your surgeon in 1-2 days. The following attachments cannot be sent through Care Everywhere.Vaginal Yeast Infection ([place])documented in this encounter [employer] Phone: 07-23-2019 Hospital Discharge instructions Jose Watson [...] care or concern. documented in this encounter [employer] Phone: Evaluation + Plan note No data available for this section [facility] Evaluation note Diagnosis Intra-abdominal abscess (HCC)- Primary Peritoneal abscess documented in this encounter [employer] Phone: evaluation note* Diagnosis Abscess, intra-abdominal, postoperative- Primary Other postoperative infection Yeast infection Other and unspecified mycoses documented in this encounter [employer] Phone: evaluation note* Diagnosis Evaluation for removal of FLYNN drains- Primary Other specified aftercare following surgery Intractable episodic headache, unspecified headache type Nausea Nausea alone Yeast vaginitis Candidiasis of vulva and vagina documented in this encounter [employer] Phone: evaluation note* Diagnosis Focal epilepsy- Primary Localization-related (focal) (partial) epilepsy and epileptic syndromes with simple partial seizures, without mention of intractable epilepsy Complicated migraine Migraine with aura, without mention of intractable migraine without mention of status migrainosus Reversible cerebrovascular vasoconstriction syndrome Other ill-defined cerebrovascular disease [facility] Attention deficit hyperactivity disorder (ADHD), [...] Postgastric surgery syndromes [facility] Diagnosis Chronic migraine without aura without status migrainosus, not intractable (CMS/HCC)- Primary Seizure (CMS/HCC) Other convulsions [facility] Diagnosis Chronic migraine without aura without status migrainosus, not intractable (CMS/HCC)- Primary [facility] Diagnosis Reactive hypoglycemia- Primary Hypoglycemia, unspecified Type 2 diabetes mellitus with hypoglycemia without coma, without long-term current use of insulin (CMS/HCC) Dumping syndrome Postgastric surgery syndromes Migraine without aura and without status migrainosus, not intractable (CMS/HCC) 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CMS/HCC) Chronic lymphocytic thyroiditis Vitamin D insufficiency Encounter for vitamin deficiency screening History of gastric bypass [facility] this [facility] No data available for this section [facility] Reason for referral (narrative)* Consultation (Urgent) - New Request Specialty Diagnoses / Procedures Referred By Clint mora Referred To Contact Neurology Diagnoses Complicated migraine Reversible cerebrovascular vasoconstriction syndrome Sanket Medina MD [address] [place] [address] Referral ID Status Reason Start Date Expiration Date V isits Requested Visits Authorized [id number] New Request 05/26/2022 06/20/2023 1 1 [facility] Discharge Instructions * Instructions* Obdulio Harrison DO [...] questions, PLEASE call your doctor or the [facility] at documented in this encounter History of Present Illness * Sierra Santillan RN - 12/18/2019 3:25 PM EDT Patient given discharge instructions. All questions answered. Patient ambulated off unit for discharge. * Corina Juárez - 12/18/2019 12:19 PM EDT CLINICAL PHARMACY NOTE: MEDS TO [facility] Select Patient?: No Total # of Prescriptions Filled: 2 The following medications were delivered to the patient: roxicodone dok Total # of Interventions Completed: 0 Time Spent (min): 0 Additional Documentation: * Obdulio Harrison DO - 12/18/2019 7:13 AM EDT General Surgery: Daily Progress Note PATIENT NAME: aRchid Mojica TODAY'S DATE: 12/18/2019, 7:13 AM CC: [...] Garcia DO - 12/17/2019 11:06 AM EDT [facility] 4C ONC/MED SURG [address] [facility] [address] Dept: [phone] Loc: [phone] Bariatrics: Asked to see patient today regarding [...] GJ ulcer approximately 2.5 months ago in [place]. Primary surgery done in [place]. BP (!) 95/46 Pulse 68 Temp 97.9 F (36.6 C) (Oral) Resp 18 Ht 5' 5 (1.651 m) Wt 147 lb (66.7 kg) SpO2 98% BMI 24.46 kg/m Abdom: Soft, non distended, fullness on the left, but some rebound from the right Labs: 12/16/2019 6:14 AM - [facility], [facility] Incoming Lab Results From [facility] Component Value Ref Range & Units Status Collected Lab WBC 5.8 3.5 - 11.3 k/uL Final 12/16/2019 6:00 AM [facility] RBC 4.36 3.95 - 5.11 m/uL Final 12/16/2019 6:00 AM [facility] Hemoglobin 13.5 11.9 - 15.1 g/dL Final 12/16/2019 6:00 AM [facility] Hematocrit 41.6 36.3 - 47.1 % Final 12/16/2019 6:00 AM [facility] MCV 95.4 82.6 - 102.9 fL Final 12/16/2019 6:00 AM [facility] MCH 31.0 25.2 - 33.5 pg Final 12/16/2019 6:00 AM [facility] MCHC 32.5 28.4 - 34.8 g/dL Final 12/16/2019 6:00 AM [facility] RDW 12.2 11.8 - 14.4 % Final 12/16/2019 6:00 AM [facility] Platelets 154 138 - 453 k/uL Final 12/16/2019 6:00 AM [facility] MPV 10.6 8.1 - 13.5 fL Final 12/16/2019 6:00 AM [facility] NRBC Automated 0.0 0.0 per 100 WBC Final 12/16/2019 6:00 AM [facility] Differential Type NOT REPORTED Final 12/16/2019 6:00 AM [facility] WBC Morphology NOT REPORTED Final 12/16/2019 6:00 AM [facility] RBC Morphology NOT REPORTED Final 12/16/2019 6:00 AM [facility] Platelet Estimate NOT REPORTED Final 12/16/2019 6:00 AM [facility] Seg Neutrophils 44 36 - 65 % Final 12/16/2019 6:00 AM [facility] Lymphocytes 41 24 - 43 % Final 12/16/2019 6:00 AM [facility] Monocytes 9 3 - 12 % Final 12/16/2019 6:00 AM [facility] Eosinophils % 5High 1 - 4 % Final 12/16/2019 6:00 AM [facility] Basophils 1 0 - 2 % Final 12/16/2019 6:00 AM [facility] Immature Granulocytes 0 0 % Final 12/16/2019 6:00 AM [facility] Segs Absolute 12/16/2019 6:31 AM - [facility], [facility] Incoming Lab Results From [facility] Component Value Ref Range & Units Status Collected Lab Glucose 83 70 - 99 mg/dL Final 12/16/2019 6:00 AM [facility] BUN 9 6 - 20 mg/dL Final 12/16/2019 6:00 AM [facility] CREATININE 0.55 0.50 - 0.90 mg/dL Final 12/16/2019 6:00 AM [facility] Bun/Cre Ratio NOT REPORTED 9 [...] PM [facility], [facility] Incoming Radiant Results From [facility] Rigoberto Orellana DO CC'd Results Radiation Dose [...] Urrutia MD General Surgery PGY2 Pager Number: [phone] * Kiya Cordero RN - 12/16/2019 4:[address] Urrutia, ok to hep lock pt while she [...] Documents on File Type Date Recorded Patient 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 Technician Expl anation Advance Directives and Living Will Power of Filler Sifter Machine Latest Code Status on File Code Status Date Activated Date Inactivated Comments Full Code 12/15/2019 9:45 PM Latest Code Status on File Code Status Date Activated Date Inactivated Comments Full Code 12/15/2019 9:45 PM 12/18/2019 5:31 PM Documents on File Type Date Recorded Patient 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 Technician Expl anation Advance Directives and Living Will Power of Filler Sifter Machine Latest Code Status on File Code Status [...] History Records FoundNo Family History Records Found No data available for this section No Family History Records FoundNo Family History Records FoundNo Family History Records Found Chief Complaint and Reason for Visit Chief Complaint COVID TESTING Reason for Referral Specialty Diagnoses / Procedures Referred By Clint mora Referred To Contact Diagnoses Chronic migraine without aura without status migrainosus, not intractable (CMS/HCC) Marisa Bowers, RADIOLOGICAL ENGINEER [address] [place] [address] Referral ID Status Reason Start Date Expiration Date V isits Requested Visits Authorized [id number] Pending Review 03/13/2024 09/09/2024 1 1 Referral ID Status Reason Start Date Expiration Date V isits Requested Visits Authorized [id number] Pending Review 03/13/2024 09/09/2024 1 1 Additional Source Comments Reason for Visit (unrecogniz ed section and content) Reason Comments Abdominal Pain Pt states she did a CT of her abdomin and came back abnormal, abdominal pain x2 weeks Status Reason Specialty Diagnoses / Procedures Referre d By Contact Referred To Contact Diagnoses 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) Jeannie Garcia DO [address] [address] [facility] Status Reason Specialty Diagnoses / Procedures Re ferred By Contact Referred To Contact Diagnoses Epigastric pain EPIGASTRIC PAIN Procedures ID OFFICE/OUTPT VISIT,PROCEDURE ONLY ID ESOPHAGOGASTRODUODENOSCOPY TRANSORAL DIAGNOSTIC EGD ESOPHAGOGASTRODUODENOSCOPY Jeannie Garcia DO [address] [address] [facility] Reason Comments Emesis pt states she has be en vomiting since a surgery for a ruptured lining during a scope Reason Comments Abdominal Pain Reason Comments Post-op Problem pt states she has an infection in her drain tubes Reason Comments New Patient Specialty Diagnoses / Procedures Referred By Clint mora Referred To Contact Neurology Diagnoses History of seizures Alissa Gibbs, SOCCER BALL ASSEMBLER-SHELL CORE AND MOLDING SUPERVISOR [address] [facility] [address] [place] [address] Referral ID Status Reason Start Date Expiration Date V isits Requested Visits Authorized [id number] New Request 12/29/2021 01/23/2023 1 1 Reason Onset Date Comments Med Refill 05/08/2024 Reason Comments Follow-up Reason Onset Date Comments Med Refill 06/10/2024 Reason Onset Date Comments Med Refill 06/17/2024 Reason Onset Date Comments Ubrelvy Denied 03/14/2024 Reason Comments Establish Care Reason Onset Date Comments Med Refill 07/15/2024 Reason Onset Date Comments Med Refill 07/18/2024 INFORMATION SOURCE (unrecogn ized section and content) DATE CREATED AUTHOR 01/05/2020 [facility] DATE CREATED AUTHOR AUTHOR'S ORGANIZ ATION 01/07/2020 [facility] DATE CREATED AUTHOR AUTHOR'S ORGANIZ ATION 03/30/2021 [facility] DATE CREATED AUTHOR AUTHOR'S ORGANIZ ATION 01/03/2023 [facility] DATE CREATED AUTHOR AUTHOR'S ORGANIZ ATION 11/12/2023 [facility] DATE CREATED AUTHOR AUTHOR'S ORGANIZ ATION 05/13/2024 [facility] DATE CREATED AUTHOR AUTHOR'S ORGANIZ ATION 06/09/2024 [facility] DATE CREATED AUTHOR AUTHOR'S ORGANIZ ATION 07/04/2024 Ortega Shamar [facility] Care Teams (unrecognized sec tion and content) Food Preparation Worker Relationship Specialty Start Date End Date Lorin Traylor CNP [address] [address] PCP - General Nurse Practitioner - Family 12/29/21 Food Preparation Worker Relationship Specialty Start Date End Date Lorin Traylor CNP [address] [facility] [address] [place] [address] PCP - General Nurse Practitioner - Family 12/29/21 Food Preparation Worker Relationship Specialty Start Date End Date Lorin Traylor CNP [address] [facility] [address] [place] [address] PCP - General Nurse Practitioner - Family 12/29/21 Food Preparation Worker Relationship Specialty Start Date End Date [place] DO [address] [place] [address] PCP - General Family Medicine 04/02/24 Food Preparation Worker Relationship Specialty Start Date End Date [place] mot[place] DO [address] [place] [address] PCP - General Family Medicine 04/02/24 Food Preparation Worker Relationship Specialty Start Date End Date [place] [address] [place] [address] PCP - General Family Medicine 04/02/24 Food Preparation Worker Relationship Specialty Start Date End Date Conrado Landryothy DO Sarah [address] [place] [address] PCP - General Family Medicine 04/02/24 Food Preparation Worker Relationship Specialty Start Date End Date [place] [address] [place] [address] PCP - General Family Medicine 04/02/24 Food Preparation Worker Relationship Specialty Start Date End Date Conrado Landryothy DO Sarah [address] [place] [address] PCP - General Family Medicine 04/02/24 Food Preparation Worker Relationship Specialty Start Date End Date Frantz Nona Sarah [address] [place] [address] PCP - General Family Medicine 04/02/24 FOR [...] BE BASED ON THE PRIMARY CLINICAL RECORDS. [facility] provides no warranty or guarantee of the accuracy or completeness of information in this document.
--- NOTE | 2024-07-26 07:37 | ED_ITS ---
HPI - URI/Sore Throat General Chief Complaint: Upper Respiratory Infection Stated Complaint: FLU LIKE SYMPTOMS Time Seen by Provider: 07/26/24 07:17 Source: patient Limitations: no limitations History of Present Illness HPI Narrative: 33-year-old female presents to the emergency department for nasal congestion and nausea and she has had the symptoms for 7 to 10 days. She has been taking [id number] medications but it does not seem to help much. No fever or vomiting. She had a hysterectomy in 2017. Related Data Home Medications ?Medication ?Instructions ?Recorded ?Confirmed amitriptyline 25 mg tablet 25 mg PO QDAY PRN nerve pain 03/15/23 02/28/24 cholecalciferol (vitamin D3) 10 2,000 unit PO QDAY 03/15/23 02/28/24 mcg (400 unit) tablet (Vitamin D3) dexmethylphenidate 20 mg 20 mg PO QDAY 03/15/23 02/28/24 capsule,extended release [id number] fremanezumab-vfrm 225 mg/1.5 mL 225 mg subcut .qmonth 03/15/23 07/11/23 subcutaneous syringe (Ajovy Syringe) levetiracetam 500 mg tablet 750 mg PO Q12H 03/15/23 02/28/24 Previous Rx's ?Medication ?Instructions ?Recorded amoxicillin 875 mg-potassium 1 tab PO Q12H #14 tabs 07/11/23 clavulanate 125 mg tablet methocarbamol 750 mg tablet 750 mg PO TID PRN pain #20 tabs 08/30/23 methylprednisolone 4 mg tablets in See Rx Instructions .Route 08/30/23 a dose pack (Medrol (Isaac)) .COMPLEX #21 ea orphenadrine citrate 100 mg 100 mg PO BID PRN muscle pain #14 02/28/24 tablet,extended release tabs prednisone 20 mg tablet See Rx Instructions .Route 02/28/24 .COMPLEX #12 tabs loratadine 5 mg-pseudoephedrine ER 1 tab PO Q12H PRN nasal congestion 06/24/24 120 mg tablet,extended #20 tabs release,12hr (Claritin-D 12 Hour) loratadine 5 mg-pseudoephedrine ER 1 tab PO Q12H PRN nasal congestion 07/26/24 120 mg tablet,extended #20 tabs release,12hr (Claritin-D 12 Hour) ondansetron 4 mg disintegrating 4 mg PO Q6H PRN nausea and 07/26/24 tablet vomiting #20 tabs Allergies Allergy/AdvReac Type Severity Reaction Status Date / Time latex Allergy Intermediate Rash Verified 07/26/24 07:22 NSAIDS (Non-Steroidal AdvReac Intermediate Nausea Verified 07/26/24 07:22 Anti-Inflamma Review of Systems ROS Narrative A ten point review of systems is negative except as noted above. PFSH PFSH Social History Smoking status: Never smoker Little interest or pleasure in doing things: not at all Feeling down, depressed, or hopeless: not at all Exam Narrative Exam Narrative: Nurses note and vital signs reviewed and patient is not hypoxic. General: The patient appears well and in no apparent distress. Patient is resting comfortably on cart. Skin: Warm, dry, no pallor noted. There is no rash noted. Head: Normocephalic, atraumatic Eye: Normal conjunctiva, no drainage Ears, Nose, Mouth, and Throat: oral mucosa is moist. Nares patent. Both TMs and external canals are normal in appearance. No pharyngeal erythema or exudate. Cardiovascular: Regular Rate and Rhythm Respiratory: Patient is in no distress, no accessory muscle use, lungs are clear to auscultation, no wheezing, rales or rhonchi Back: non-tender GI: Soft and nontender Musculoskeletal: The patient has no evidence of calf tenderness, no pitting edema, symmetrical pulses noted bilaterally Neurological: A&O, normal speech Psychiatric: Cooperative Constitutional Vital Signs, click to edit/add: Last Vital Signs Temp 97.7 F 07/26/24 07:20 Pulse 78 07/26/24 07:20 Resp 18 07/26/24 07:20 BP 124/83 07/26/24 07:20 Pulse Ox 95 07/26/24 07:20 O2 Del Method Room Air 07/26/24 07:20 Course Vital Signs Vital signs: Vital Signs Temperature 97.7 F 07/26/24 07:20 Pulse Rate 78 07/26/24 07:20 Respiratory Rate 18 07/26/24 07:20 Blood Pressure 124/83 07/26/24 07:20 Pulse Oximetry 95 07/26/24 07:20 Oxygen Delivery Method Room Air 07/26/24 07:20 Temperature 97.7 F 07/26/24 07:20 Pulse Rate 78 07/26/24 07:20 Respiratory Rate 18 07/26/24 07:20 Blood Pressure 124/83 07/26/24 07:20 Pulse Oximetry 95 07/26/24 07:20 Oxygen Delivery Method Room Air 07/26/24 07:20 MDM - URI/Sore Throat MDM Narrative Medical decision making narrative: Influenza and COVID swabs are negative. She will be treated symptomatically. Antibiotic is not indicated. Treatment diagnosis and follow-up were discussed with the patient. Differential Diagnosis Differential diagnosis: Likely upper respiratory infection, viral infection, influenza and other (COVID) Lab Data Attestation: I reviewed the patient's lab results. Labs: Lab Results 07/26/24 Range/Units 07:28 Influenza Type A Ag Negative Influenza Type B Ag Negative SARS-CoV-2 Ag (CV2AG) Negative (NEGATIVE) Discharge Plan Discharge Chief Complaint: Upper Respiratory Infection Clinical Impression: Upper respiratory infection Patient Disposition: Home, Self-Care Time of Disposition Decision: 08:32 Condition: Good Mode of Transportation: Private Vehicle Prescriptions / Home Meds: New Claritin-D 12 Hour 5-120 mg tablet extended release 12 hr 1 tab PO Q12H PRN (Reason: nasal congestion) Qty: 20 0RF ondansetron 4 mg tablet,disintegrating 4 mg PO Q6H PRN (Reason: nausea and vomiting) Qty: 20 0RF No Action amoxicillin-pot clavulanate 875-125 mg tablet 1 tab PO Q12H Qty: 14 0RF Claritin-D 12 Hour 5-120 mg tablet extended release 12 hr 1 tab PO Q12H PRN (Reason: nasal congestion) Qty: 20 0RF amitriptyline 25 mg tablet 25 mg PO QDAY PRN (Reason: nerve pain ) cholecalciferol (vitamin D3) [Vitamin D3] 10 mcg (400 unit) tablet 2,000 unit PO QDAY dexmethylphenidate 20 mg capsule,ER biphasic 50-50 20 mg PO QDAY Ajovy Syringe 225 mg/1.5 mL syringe 225 mg SUBCUT .qmonth levetiracetam 500 mg tablet 750 mg PO Q12H methocarbamol 750 mg tablet 750 mg PO TID PRN (Reason: pain) Qty: 20 0RF methylprednisolone [Medrol (Isaac)] 4 mg tablets,dose pack See Rx Instructions .ROUTE .COMPLEX Qty: 21 0RF Rx Instructions: Taper as directed prednisone 20 mg tablet See Rx Instructions .ROUTE .COMPLEX Qty: 12 0RF Rx Instructions: 3 tabs daily for 2 days, then 2 tabs daily for 2 days, then 1 tab daily for 2 days orphenadrine citrate 100 mg tablet extended release 100 mg PO BID PRN (Reason: muscle pain) Qty: 14 0RF Print Language: Serbian Instructions: Upper Respiratory Infection (ED) Referrals: Grabiel Landry [Primary Care Provider] - 1 week
[2024-07-26 08:20] LABS: Influenza Virus A Antigen Negative; Influenza Virus B Antigen Negative; Internal Control Within Normal Limits; SARS-CoV-2 Ag NEGATIVE (NEGATIVE)
[2024-07-26 08:45] VITALS: BP 126/78; PULSE 70; O2SAT 97
== END 2024-07-26 08:45 | disposition home or self-care (01) ==
PROVIDERS: Emergency Provider Emergency Medicine; PCP Family Medicine
DX: J06.9 Acute upper respiratory infection, unspecified (principal); Z90.710 Acquired absence of both cervix and uterus
CPT/HCPCS: 87804; 87811; 99283

== ENCOUNTER 2024-08-06 09:26 | Outpatient (OUT) | payer OTHER, SELFPAY ==
[2024-08-06 10:13] LABS: Anion Gap 11.9; BUN Creatinine Ratio 6.2; Carbon Dioxide 30.4 mmol/L (21.0-32.0); Chloride 105 mmol/L (98-107); Estimated GFR (African America >60 (>=60 mL/min/1.73m^2); Estimated GFR (Non-African Ame >60 (>=60 mL/min/1.73m^2); Glucose 88 mg/dL (74-106); Potassium 4.3 mmol/L (3.5-5.1); Sodium 143 mmol/L (136-145)
[2024-08-07 17:07] LABS: Levetiracetam (Keppra), S 25.7 ug/mL (10.0-40.0)
== END 2024-08-06 09:27 | disposition home or self-care (01) ==
LOC: LAB 09:27
PROVIDERS: PCP Family Medicine; Visit Provider Nurse Practitioner Adult Health
DX: R56.9 Unspecified convulsions (principal)
CPT/HCPCS: 36415; 80048; 80177

== ENCOUNTER 2024-10-01 18:11 | Emergency (ER) | payer OTHER, SELFPAY ==
[2024-10-01 18:15] VITALS: BP 124/62; PULSE 112; TEMP 36.7; O2SAT 98; BMI 27.5
--- OUTSIDE RECORDS SUMMARY | 2024-10-01 18:21 | XMS_ITS | CCD ---
Author Organization [facility] Care Team Providers Care Fire Prevention Research Engineer Name Role Phone Violet Ross Primary Care [...] Unavail able None, Physician Primary Care Provider [phone] None, Physician Attending Provider Priyanka Angelo MD Attending Vicki ilable Unavailable Primary Care Provider Unavailabl e Cleemput Lorin CERON Primary Care Provider [phone] Cleemput Lorin CERON Primary Care Provider [phone] CLEEMPUT, LORIN Primary Care Unavailable CLEEMPUT, LORIN Primary Care Unavailable ALISSA GIBBS Referring Unavailable SANKET MEDINA Attending Unavailable Cleemput Lorin CERON Primary Care Provider [phone] SONIYA RIVERO Attending Unavailable SU LAMAR Attending Unavailab DAVIS Mendez Attending Unavailable SONIYA RIVERO Attending Unavailable Nona Landry DO Primary Care Provider Haroon DO, Anson Yi Attending Unavailab le Cleemput SURGICAL DRESSING MAKER-SEWING MACHINE MECHANIC, Lorin Shanti Primary Care Unavai lable Haroon DO, Anson Yi Attending Unavailab le [place] SURGICAL DRESSING MAKER-SEWING MACHINE MECHANIC, Lorin Shanti Primary Care Unavai lable Haroon DO, Anson Yi Attending Unavailab le [place]put SURGICAL DRESSING MAKER-SEWING MACHINE MECHANIC, Lorin Shanti Primary Care Unavai lable Haroon DO, Anson Yi Attending Unavailab le [place] SURGICAL DRESSING MAKER-SEWING MACHINE MECHANIC, Lorin Shanti Primary Care Unavai lable [place]put SURGICAL DRESSING MAKER-SEWING MACHINE MECHANIC, Lorin Shanti Primary Care Unavai lable Haroon DO, Anson Yi Attending Unavailab le Haroon DO, Anson Yi Attending Unavailab le [place] SURGICAL DRESSING MAKER-SEWING MACHINE MECHANIC, Lorin Shanti Primary Care Unavai lable Haroon DO, Anson Yi Attending Unavailab le [place] SURGICAL DRESSING MAKER-SEWING MACHINE MECHANIC, Lorin Shanti Primary Care Unavai NONA Sullivan Primary Care Physician Jerrell Porter Attending Unavailable Unavailable Primary Care Provider UnavailMELA Shepard Attending Unavailable MARISA BOWERS Attending Unavailable NONA LANDRY Attending Unavailable NONA LANDRY Attending Unavailable NONA LANDRY Attending Unavailable Jerrell Porter Attending Unavailable David Thornton Attending Unavailable Daryn Roman Attending Unavailable Zafar Stephens Attending UnavailJerrell Huston Attending Unavailable Unavailable Unavailable Unavailable Allergies Allergy Classification Reported Allergen(s) Allergy Type Date of Onset Reaction(s) Facility (11 sources) Latex; Translations: [Latex] Propensity to adverse reactions to drug 9 [facility] Work Phone: (16 sources) Vancomycin; Translations: [vancomycin] Drug Allergy [address] [place] [address] Work Phone: (1 source) No Known Medication Allergies; Translations: [No Known Medication Allergies] Propensity to adverse reactions to drug (disorder) [facility] Repository (10 sources) Diatrizoate Drug Allergy 2 [facility] Work Phone: (11 sources) Iodine; Translations: [iodine] Drug Allergy 2 [facility] (11 sources) NSAIDs; Translations: [NSAIDs] Propensity to adverse reactions to drug 2 [facility] (20 sources) Latex Propensity to adverse reactions to drug 7 Rash [facility] (1 source) natural latex rubber; Translations: [LATEX, NATURAL RUBBER] Propensity to adverse reactions to drug (disorder) 5 [facility] Repository (1 source) NSAIDs; Translations: [NSAIDS (NON-STEROIDAL ANTI-INFLAMMATORY DRUG)] Propensity to adverse reactions to drug (disorder) 4 [facility] Repository (1 source) Gluten; Translations: [Glutens] Propensity to adverse reactions to food (disorder) [facility] Repository (1 source) iodinated radiocontrast dyes; Translations: [iodinated radiocontrast dyes] Propensity to adverse reactions to drug (disorder) [facility] Repository Medications Current Medications Medication Drug Class(es) [...] every four hours as needed for headache dbjcscjcbi-owavioznqiiqt-yojenfuu (FIORICET, ESGIC) 50-325-40 MG per tablet Take 1 tablet by mouth every 4 hours as needed for Headaches 0 Active amitriptyline hydrochloride 50 mg oral tablet (10 sources) Tricyclic Antidepressant Sta rt: 2 take 1.5 tablets by mouth at bedtime amitriptyline 50 MG tablet Take 1.5 tablets by mouth at bedtime. 45 tablet 12/09/2021 Active amoxicillin 875 mg / clavulanate 125 mg oral tablet (5 sources) Penicillin-class Antibacterial Sta rt: 5 End : 5 take 1 tablet by mouth every twelve hours Augmentin 875 mg oral tablet = 1 tab(s), Oral, q12hr, X 7 day(s), # 14 tab(s), Refills(s) 0, Pharmacy: [facility]/pharmacy #[id number], 165, cm, 08/26/24 7:52:00 EST, Height/Length Dosing, 75, kg, 08/26/24 7:52:00 EST, Weight Dosing Start Date: 08/26/24 Stop Date: 09/02/24 Status: Ordered Start: 08-03-2024 End: 08-10-2024 Augmentin 875 mg-125 mg Tab 1 tab(s), Oral, BID for 7 day(s), 14 tab(s), Refill(s) 0, [facility]/pharmacy #[id number], 165, cm, 08/03/24 7:43:00 EST, Height/Length Dosing, 75.1, kg, 08/03/24 7:43:00 EST, Weight Dosing Start Date: 08/03/24 Stop Date: 08/10/24 Status: Ordered End: 07-23-2019 take 1 tablet by mouth twice daily amoxicillin-clavulanate (AUGMENTIN) 500-125 MG per tablet Take 1 tablet by mouth 2 times daily 0 07/23/2019 Discontinued (LIST CLEANUP) b complex vitamins capsule (3 sources) take 1 capsule by mo [facility] once daily b complex vitamins capsule Take 1 capsule by mouth daily 0 Active take 1 capsule by mouth once aldo ly b complex vitamins capsule Take 1 capsule by mouth daily 0 Suspended brompheniramine maleate 0.4 mg/ml / dextromethorphan hydrobromide 2 mg/ml / pseudoephedrine hydrochloride 6 mg/ml oral solution (2 sources) alpha-Adrenergic Agonist, Uncompetitive J-sehzys-L-aspartate Receptor Antagonist, Sigma-1 Agonist Start: 08-26-2024 take 10 mL by mouth four times daily Bromfed DM oral syrup 10 mL, Oral, QID for cold symptoms, 200 mL, Refill(s) 0, [facility]/pharmacy #[id number], 165, cm, 08/26/24 7:52:00 EST, Height/Length Dosing, 75, kg, 08/26/24 7:52:00 EST, Weight Dosing Start Date: 08/26/24 Status: Ordered calcium chloride 0.0014 meq/ml / potassium chloride 0.004 meq/ml / sodium chloride 0.103 meq/ml / sodium lactate 0.028 meq/ml injectable solution (4 sources) Start: 01-04-2020 lactated ringers infusion Start: 12-15-2019 End: 12-17-2019 Intravenous, at 75 mL/hr, CO NTINUOUS, Starting 12/17/19 at 1500 Start: 07-23-2019 End: 07-23-2019 lactated ringers infusion 1, 000 mL cholecalciferol 0.025 mg oral tablet (20 sources) Vitamin D Start: 12-29-2020 cholecalcifero l [...] Glucose Sensor (FreeStyle Adrian 3 Sensor) misc (20 sources) Start: 04-02-2024 Continuous Glucose Sensor (FreeStyle Adrian 3 Sensor) misc Indications: Reactive hypoglycemia , Type 2 diabetes mellitus with hypoglycemia without coma, without long-term current use of insulin (CMS/HCC) 1 each every 14 (fourteen) days 2 each 12 04/02/2024 Active 24 hr dexmethylphenidate hydrochloride 20 mg extended release oral capsule (20 sources) Central Nervous System Stimulant Start: 05-16-2024 End: 09-17-2024 take 1 capsule by mouth once daily dexmethylphenidate XR (Focalin XR) 20 MG 24 hr capsule Indications: Attention deficit hyperactivity disorder (ADHD), unspecified ADHD type (CMS/HCC) Take 1 capsule (20 mg) by mouth Daily 30 capsule 09/17/2024 Active Start: 05-10-2024 End: 05-16-2024 take 2 capsules by mouth once daily dexmethylphenidate XR (Focalin XR) 10 MG 24 hr capsule Indications: Attention deficit hyperactivity disorder (ADHD), unspecified ADHD type (CMS/HCC) Take 2 capsules (20 mg) by mouth Daily 30 capsule 05/10/2024 05/16/2024 Discontinued (Reorder) Start: 11-16-2021 take 1 capsule by mo uth once daily Dexmethylphenidate HCl 20 MG Cap [...] for Constipation 60 capsule 0 12/18/2019 Active 0.5 ml dulaglutide 3 mg/ml auto-injector (4 sources) GLP-1 Receptor Agonist Start: 08-30-2024 End: 08-30-2025 inject 1.5 mg by subcutaneous injection every week Dulaglutide (Trulicity) 1.5 MG/0.5ML solution auto-injector Indications: Type 2 diabetes mellitus with hypoglycemia without coma, without long-term current use of insulin (CMS/HCC) Inject 1.5 mg under the skin 1 (one) time per week 6 mL 3 08/30/2024 08/30/2025 Active 0.4 ml enoxaparin sodium 100 mg/ml [...] by mouth 2 times daily 0 Active fluticasone propionate 0.05 mg/actuat metered dose nasal spray (8 sources) Corticosteroid Start: Flonase Allergy Relief 50 MCG/ACT nasal spray Administer into affected nostril(s) 08/03/2024 Active Start: 08-03-2024 End: 08-10-2024 take 1 spray(s) nasal route twice daily Flonase 0.05 mg/inh [place] 1 spray(s), Nasal, BID for 7 day(s), 16 gm, Refill(s) 0, each nostril, [facility]/pharmacy #[id number], 165, cm, 08/03/24 7:43:00 EST, Height/Length Dosing, 75.1, kg, 08/03/24 7:43:00 EST, Weight Dosing Start Date: 08/03/24 Stop Date: 08/10/24 Status: Ordered 1.5 ml fremanezumab-vfrm 150 mg/ml auto-injector (20 sources) Start: 03-13-2024 End: 10-17-2024 fremanezumab (Ajovy) 225 MG/1.5ML auto-injector Indications: Chronic [...] Active gabapentin (Neurontin) 200 mg split tablet (20 sources) Start: 09-30-2014 take 1 tablet by mouth once daily gabapentin (Neurontin) 200 mg split tablet Take 200 mg by mouth Daily 09/30/2014 Active 1 ml hydrALAZINE hydrochloride 20 mg/ml injection (1 source) Arteriolar Vasodilator Start: 01-04-2020 hydrALAZINE (APRESOLINE) injection 5 mg levETIRAcetam 750 mg oral tablet (20 sources) Start: 07-28-2024 take 2 tablets by mouth in the morning levETIRAcetam (Keppra) 750 MG tablet Take 2 tablets by mouth in the morning and 2 tablets before bedtime. 07/28/2024 Active Start: 03-13-2024 End: 03-13-2025 take 1.5 tablets by mouth in the morning levETIRAcetam (Keppra) 500 MG tablet Indications: Seizure (CMS/HCC) Take 1.5 tablets (750 mg) by mouth in the morning and 1.5 tablets (750 mg) before bedtime. 270 tablet 3 03/13/2024 08/09/2024 Discontinued Start: 03-09-2023 End: 07-20-2023 levETIRAcetam 750 MG [...] oral tablet (1 source) Start: 12-16-2019 melatonin tabl et 3 mg methocarbamol 750 mg oral tablet (2 sources) Muscle Relaxant Start: 08-30-2024 End: 09-02-2024 take 1 tablet by mouth three times daily Robaxin-750 oral tablet 1,500 mg = 2 tab(s), Oral, TID, X 3 day(s), # 18 tab(s), Refills(s) 0, Pharmacy: [facility]/pharmacy #[id number], 165, cm, 08/30/24 16:37:00 EST, Height/Length Dosing, 77.3, kg, 08/30/24 16:37:00 EST, Weight Dosing Start Date: 08/30/24 Stop Date: 09/02/24 Status: Ordered Start: 12-17-2019 take 750 mg by mouth every six hours 750 mg, Oral, EVERY 6 HOURS, First dose on 12/17/19 at 1530 methylphenidate hydrochloride 10 mg oral tablet (20 sources) Central Nervous System Stimulant Start: 08-29-2023 End: 09-17-2024 take 1 tablet by mouth once daily methylphenidate (Ritalin) 10 MG tablet Indications: Attention deficit hyperactivity disorder (ADHD), unspecified ADHD type (CMS/HCC) Take 1 tablet (10 mg) by mouth once per day 30 tablet 08/20/2024 Active 2 ml metoclopramide 5 mg/ml prefilled [...] of bedtime. take 2 tablets by mo [facility] twice daily midodrine (PROAMATINE) 5 MG tablet Take 10 mg by mouth 2 times daily 0 Active mirtazapine 30 mg oral tablet (20 sources) Start: 07-19-2024 End: 09-17-2024 take 1 tablet by mouth at bedtime mirtazapine (Remeron) 30 MG tablet Indications: Mild episode of recurrent major depressive disorder (HCC) (CMS/HCC) Take 1 tablet (30 mg) by mouth at bedtime 90 tablet 1 09/17/2024 Active Start: 01-11-2020 End: 05-10-2024 take 1 [...] by mouth 2 times daily 0 Suspended naproxen 500 mg oral tablet (1 source) Nonsteroidal Anti-inflammatory Drug Start: 08-30-2024 take 1 tablet by mouth twice daily as needed for pain Naprosyn 500 mg Tab 500 mg = 1 tab(s), Oral, BID, PRN for pain, # 20 tab(s), Refills(s) 0, Pharmacy: [facility]/pharmacy #[id number], 165, cm, 08/30/24 16:37:00 EST, Height/Length Dosing, 77.3, kg, 08/30/24 16:37:00 EST, Weight Dosing Start Date: 08/30/24 Status: Ordered omeprazole 40 mg delayed release oral capsule [...] release tablet 5 mg polyethylene glycol 3350 06327 mg powder for oral solution (2 sources) Osmotic Laxative Start: 07-23-2019 End: 07-30-2019 take 17 g by mouth once daily as needed for constipation polyethylene glycol (MIRALAX) powder Take 17 g by mouth daily for 7 days PRN constipation 1 Bottle 0 07/23/2019 07/30/2019 Active promethazine hydrochloride 12.5 mg oral tablet (20 sources) Phenothiazine Start: 06-30-2024 take 1 tablet by mouth every four hours for nausea promethazine (Phenergan) 12.5 MG tablet Indications: Type 2 diabetes mellitus with hypoglycemia without coma, without long-term current use of insulin ([facility]) , History of gastric bypass Take 1 tablet (12.5 mg) by mouth every 4 (four) hours if needed for nausea or vomiting 30 tablet 08/20/2024 Active Start: 08-21-2021 take 1 tablet by ryan [...] 0 07/29/2019 08/05/2019 Active rimegepant 75 mg disintegrat ing oral tablet (13 sources) Start: 08-06-2024 Nurtec 75 MG t ablet dispersible 08/06/2024 Active Start: 03-14-2024 End: 04-13-2024 take 1 tablet by mouth once daily as needed Rimegepant Sulfate (Nurtec) 75 MG tablet dispersible Indications: Chronic migraine without aura without status migrainosus, not intractable (CMS/HCC) Take 75 mg by mouth Daily as needed (migraine) 15 tablet 1 03/14/2024 04/13/2024 Active Semaglutide,0.25 or 0.5MG/DO S, (Ozempic, 0.25 or 0.5 MG/DOSE,) 2 MG/3ML solution pen-injector (20 sources) Start: 08-09-2024 Semaglutide,0. 25 or 0.5MG/DOS, (Ozempic, 0.25 or 0.5 MG/DOSE,) 2 MG/3ML solution pen-injector Indications: Type 2 diabetes mellitus with hypoglycemia without coma, without long-term current use of insulin (CMS/HCC) , Dumping syndrome Inject 0.5 mg under the skin 1 (one) time per week 3 mL 3 08/09/2024 Active Start: 06-08-2024 End: 08-09-2024 Semaglutide,0.25 or 0.5MG/DO S, (Ozempic, 0.25 or 0.5 MG/DOSE,) 2 MG/3ML solution pen-injector Indications: Type 2 diabetes mellitus with hypoglycemia without coma, without long-term current use of insulin (CMS/HCC) , Dumping syndrome INJECT 0.5MG SUBCUTANEOUSLY ONCE A WEEK 3 mL 06/08/2024 08/09/2024 Discontinued (Reorder) Start: 06-08-2024 End: 06-08-2024 Semaglutide,0.25 or 0.5MG/DO [...] of insulin ([facility]) , Dumping syndrome INJECT 0.5MG SUBCUTANEOUSLY [...] pain 12 tablet 0 07/23/2019 07/26/2019 Active atomoxetine 80 mg oral capsule (1 source) [...] of insulin ([facility]) Take 1 tablet (50 mg) by [...] Chronic Attention-deficit, conduct, and disruptive behavior disorders (12 sources) Attention deficit hyperactivity disorder; Translations: [Attention-deficit hyperactivity disorder, unspecified type] 05-08-2024 Chronic Complications of surgical procedures or medical care (2 sources) Postsurgical malabsorption, not elsewhere classified; Translations: [Postsurgical malabsorption, not elsewhere classified] Onset: 3 Chronic Complications of surgical procedures or medical care (10 sources) Postoperative intra-abdominal abscess; 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] Episodic Diabetes mellitus with complications (10 sources) Hypoglycemia due to type 2 diabetes mellitus; Translations: [Type 2 diabetes mellitus with hypoglycemia without coma] 05-10-2024 Chronic E Codes: Fall (1 source) Fall on ice; Translations: [Unspecified fall due to ice and snow, initial encounter] Onset: 5 Episodic Epilepsy; convulsions (1 source) Localization-related epilepsy; Translations: [Localization-related (focal) (partial) symptomatic epilepsy and epileptic syndromes with simple partial seizures, not intractable, without status epilepticus] Chronic Headache; including migraine (20 sources) Complicated migraine; Translations: [Migraine with aura, not intractable, without status migrainosus] Onset: 7 Chronic Intestinal obstruction without hernia (5 sources) Intussusception of intestine; Translations: [Intussusception (HCC)] Onset: 0 12-15-2019 Episodic Malaise and fatigue (20 sources) Fatigue; Translations: [Chronic fatigue, unspecified] Onset: 7 04-02-2024 Chronic Mood disorders (13 sources) Recurrent major depressive episodes; Translations: [Major depressive disorder, recurrent, unspecified] 12-09-2021 Chronic Nausea and vomiting (2 sources) Nausea; Translations: [Nausea] Onset: 4 Episodic Nutritional deficiencies (20 sources) Vitamin D deficiency; Translations: [Vitamin D deficiency, unspecified] Onset: 0 04-02-2024 Chronic Other and ill-defined cerebrovascular disease (11 sources) Reversible cerebral vasoconstriction syndrome; 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] Onset: 2 Chronic Other endocrine disorders (2 sources) Other hypoglycemia; Translations: [Other hypoglycemia] Onset: 3 Chronic Other endocrine disorders (2 sources) Hypoglycemia, unspecified; Translations: [Hypoglycemia, unspecified] Onset: 3 Chronic Other endocrine disorders (20 sources) Hypoglycemia; Translations: [Hypoglycemia, unspecified] Onset: 3 04-02-2024 Chronic Other endocrine disorders (20 sources) Polycystic ovary syndrome; Translations: [Polycystic ovarian syndrome] Onset: 6 04-02-2024 Chronic Other endocrine disorders (20 sources) Reactive hypoglycemia; Translations: [Other hypoglycemia] Onset: 1 04-02-2024 Chronic Other gastrointestinal disorders (20 sources) Celiac disease; Translations: [Celiac disease] Onset: 8 04-02-2024 Chronic Other upper respiratory infections (2 sources) Chronic sinusitis; Translations: [Chronic sinusitis, unspecified] Onset: 5 Chronic Residual codes; unclassified (1 source) History of laparoscopy; Translations: [S/P laparoscopic surgery] Episodic Sprains and strains (1 source) Lower back injury; Translations: [Strain of muscle, fascia and tendon of lower back, initial encounter] Onset: 5 Episodic Thyroid disorders (20 sources) Nedra thyroiditis; Translations: [Autoimmune thyroiditis] Onset: [...] 12-08-2021 12-09-2021 Episodic Gastroduodenal ulcer (except hemorrhage) (20 sources) Gastrojejunal ulcer; Translations: [Gastrojejunal ulcer, unspecified as acute or chronic, without hemorrhage or perforation] Onset: 01-21-2020 Resolved: 04-02-2024 04-02-2024 Chronic Headache; including migraine (1 source) Headache Episodic Menstrual disorders (20 sources) Menometrorrhagia; Translations: [Excessive and frequent menstruation with irregular cycle] Onset: 04-02-2024 Resolved: 04-02-2024 04-02-2024 Chronic Mycoses (2 sources) Mycosis; Translations: [Candidiasis of vagina] Episodic Other circulatory disease (20 sources) Low blood pressure; Translations: [Hypotension, unspecified] Onset: 04-02-2024 Resolved: 04-02-2024 12-09-2021 Episodic Other complications of (20 sources) Short cervical length in ; Translations: [Cervical shortening, unspecified trimester] Onset: 07-21-2016 Resolved: 04-02-2024 04-02-2024 Episodic Other gastrointestinal disorders (2 sources) Bariatric surgery status; Translations: [Bariatric surgery status] Onset: 12-23-2022 Episodic Other gastrointestinal disorders (20 sources) History of bypass of stomach; Translations: [...] disorders; other back problems (20 sources) Cervical spondylosis without myelopathy; Translations: [Spondylosis without myelopathy or radiculopathy, cervical region] Onset: 01-28-2021 Resolved: 04-02-2024 04-02-2024 Chronic Spondylosis; intervertebral disc disorders; other back problems (20 sources) Cervical radiculitis; Translations: [Radiculopathy, cervical region] Onset: 01-28-2021 Resolved: 04-02-2024 04-02-2024 Episodic Results Test Name Value Interpretation Reference Range Facility ED Clinical Summaryon 2024 ED Clinical Summary ED Clinical Summary [place] [id number] ED Clinical Summary Person Information Name: RACHID MOJICA/[facility] Age: 33 Years : 1990 Sex: Female Language: Malaysian PCP: NONA LANDRY DO Marital Status: Single Visit Id: Visit Reason: Hand pain-swelling; Foot pain-swelling; BODY CRAMPS, NERVE PAIN Speciality: Acuity: 3 Enc Type: Emergency Med Service: Emergency Arrival: 09/27/2024 20:48:16 Discharge: 09/28/2024 00:15:54 LOS: 000 03:27 Checkin: 09/27/2024 20:48:16 Checkout: 09/28/2024 00:15:54 Dispo Type: Eloped EVENTS: Event Name Event Status Request Date/Time Start Date/Time Complete Date/Time Arrive Complete 09/27/2024 20:48:16 09/27/2024 20:48:16 09/27/2024 20:48:16 Document Home Meds Request 09/27/2024 20:48:16 Triage Complete 09/27/2024 20:48:16 09/27/2024 20:56:57 09/27/2024 20:56:57 Registration Complete 09/27/2024 20:51:06 09/27/2024 20:51:06 09/27/2024 20:51:06 Reg Complete Request 09/27/2024 20:51:06 Reg Bed Request Complete 09/27/2024 20:51:06 09/27/2024 20:51:06 09/27/2024 20:51:06 Discharge Complete 09/28/2024 00:16:09 09/28/2024 00:16:09 09/28/2024 00:16:09 Transfer Complete 09/28/2024 00:16:09 09/28/2024 00:16:09 09/28/2024 00:16:09 ADDRESS: [address] [place] [id number] [facility] DOC NOTES: MEDICAL INFORMATION: Prescriptions Given: Medications to Continue with No Changes Other Medications brompheniramine/dext romethorphan/PSE (Bromfed DM oral syrup) 10 Milliliter By Mouth 4 times a day as needed for cold symptoms. Refills: 0. naproxen (Naprosyn 500 mg Tab) 1 Tablets By Mouth 2 times a day as needed for pain. Refills: 0. promethazine (promethazine 12.5 mg oral tablet) 1 Tablets By Mouth every 4 hours as needed for nausea/vomiting. Refills: 0. PATIENT EDUCATION INFORMATION: Instructions: Follow up: DIAGNOSIS: [facility] ED Note-Physicianon 09-29-19 ED Note-Physician ED Note-Physician The patient left without being seen [facility] Comment on above: Result Comment: Elec tronically Signed By: David Thornton M.D.\.shanice\Date and Time Signed: 09/28/24 05:02 EST ED Patient Education Noteon 09-28-2024 ED Patient Education Note ED Patient Education Note [facility] ED Patient Summaryon 025 ED Patient Summary ED Patient Summary [address] [address] Patient Discharge Instructions Person Information Name: RACHID MOJICA Age: 33 Years Arrival Date: 09/27/2024 20:48:16 Discharge Diagnosis: Primary Care Physician: NONA LANDRY DO Provider Information Primary Provider: [facility] Lab Technician:None The exam and treatment you received in the Emergency Department were for an urgent problem and are not intended as complete care. It is important that you follow up with a doctor, nurse practitioner, or physician???s trading assistant for ongoing care. If your symptoms become worse or you do not improve as expected and you are unable to reach your usual health care provider, you should return to the Emergency Department. We are available 24 hours a day. RACHID MOJICA has been given the following list of patient education materials, prescriptions and follow-up instructions: Follow-up Instructions: In the event that this physician does not participate in your insurance network, please consult with your insurance company to find a nearby participating provider. Patient Education Materials: A MESSAGE TO ALL PATIENTS REGARDING OPIOIDS PRESCRIPTION OPIOIDS: WHAT YOU NEED TO KNOW Prescription opioids can be used to help relieve pviavdko-ej-hxwogg pain and are often prescribed following a [...] from the Food and Drug Administration (www.fda.gov/Drugs/R esourcesForYou). ??? Visit www.cdc.gov/drugover dose to learn about the risks of opioids abuse and overdose. ??? If you believe you may be struggling with addiction, tell your health care team assistant and ask for guidance or call [facility]???S National Helpline at 0-558-912-HELP. v Source: [place] Department of Health and Human Services/Center for Disease Control & Prevention [facility] Medicat (more content not included)... [facility] Coding Queryon 09-04-2024 Coding Query Coding Query - From: Laney Rodríguez To: Pedro Ward PA-C; Sent: 09/04/2024 13:00:02 EST Subject: Coding Query (Template) Caller Name: RACHID MOJICA; Caller Number: H CODING COMMUNICATION: __x__ Final diagnosis missing please document on Discharge Summary ____ Procedure information missing: ____ Please clarify type of organism associated with infection ____ Please complete ROS or HPI for ER documentation Please feel free to contact the coding department with any questions. Thank you! - From: Pedro Ward PA-C To: RodríguezLaney; Sent: 09/04/2024 18:39:16 EST Subject: RE: Coding Query (Template) Caller Name: RACHID MOJICA; Caller Number: H Done. Thank you. [facility] ED Note-Physicianon 09-04-19 25 ED Note-Physician ED Note-Physician Basic Information Time Seen: Pedro Ward PA-C 08/30/2024 16:44 Chief Complaint pt. states she slipped and fell on ice this morning. c/o neck pain and lower back pain. History of Present Illness 33-year-old female comes to the ED for evaluation of injury status post fall. The patient had a slip and fall on the ice today, landing directly on her buttock. She complains of pain across the low back with some pain to the neck as well. No chest pain or abdominal pain. No head injury. No extremity weakness or paresthesias. No difficulty of bladder or bowel function. No concerns of . No prior treatments. Review of Systems A 10 point review of systems is negative except as noted above. Medical and Surgical History: Reviewed and noted Social history: Lives at home Tobacco: Denies Physical Exam Vitals & Measurements T: 36.8 ???C(Oral) HR: 72(Peripheral) RR: 16 BP: 109/76 SpO2: 98% HT: 165 cm WT: 77.3 kg BMI: 28.39 Nurses notes and vital signs reviewed and patient is not hypoxic. General: The patient appears well, resting comfortably. Skin: Warm, dry. Head: Atraumatic. Neck: No JVD. Mild generalized tenderness. No midline tenderness. Full range of motion. Eye: Normal conjunctiva. Ears, Nose, Mouth, and Throat: Moist mucous membranes. Cardiovascular: Strong distal pulses. Chest wall: Respiratory: Respirations are nonlabored. Back: Normal range of motion. Musculoskeletal: Generalized tense across the lumbar region. No focal finding of bony instability. No point tenderness. Good range of motion. Gastrointestinal: Urological: Neurological: Awake and alert. No focal deficits. Follows commands. Psychiatric: Cooperative. Medical Decision Making X-rays were obtained of the cervical and lumbar spine. No acute abnormalities. She is treated with Naprosyn and Robaxin. Discharged home PCP follow-up. Patient was encouraged to return to the ED if symptoms worsen or change. Assessment/Plan Ordered: acetaminophen-hydroc odone, 1 tab(s), Tab, Oral, Once PRN Pain, STAT, Start date 08/30/24 17:14:00 EST XR Spine Cervical 2 or 3 Views XR Spine Lumbosacral 2 or 3 Views Medications Administered Given [place] 325 mg-5 mg oral tablet, 1 tab(s), Oral Disposition Plan Patient Discharge Condition Disposition: Discharged home Condition: Improved and stable Counseled: Patient and/or family were counseled to workup, results, treatment plan and follow-up recommendations Discharge Prescription List Prescriptions Naprosyn 500 mg Tab, 500 mg= 1 tab(s), Oral, BID, PRN Robaxin-750 oral tablet, 1500 mg= 2 tab(s), Oral, TID Follow-up With When Contact Information NONA LANDRY In 3 days 09/02/2024 EST [address] [place] [address]- [phone] [facility] (1) Additional Instructions: Patient Education Lumbosacral Strain Attestation I performed a substantive part of the MDM during the patient???s E/M visit. I personally made or approved the documented management plan and acknowledge its risk of complications. (Independent Interpretation) My (EKG/X-Ray/US/CT) interpretation as above. (Discussion) Management/test interpretation discussed with APC. This report was transcribed using voice recognition software. Every effort was made to ensure accuracy, however, inadvertently computerized recruitment intern mistakes may be present. Appropriate healthcare PPE was used in evaluating this patient. Problem List/Past Medical History Ongoing No qualifying data Historical No qualifying data Medications Inpatient No active inpatient medications Home Augmentin 875 mg oral tablet, 1 tab(s), Oral, q12hr Bromfed DM oral syrup, 10 mL, Oral, QID, PRN promethazine 12.5 mg oral tablet, 12.5 mg= 1 tab(s), Oral, q4hr, PRN Allergies No Known Allergies Social History Alcohol - Denies Alcohol Use, 06/30/2024 Substance Abuse - Denies Substance Abuse, 06/30/2024 Tobacco - Denies Tobacco Use, 06/30/2024 Lab Results No qualifying data available. Diagnostic Results No qualifying data available. Discharge Diagnosis: Fall on ice; Strain of lumbar region Normal [facility] Comment on above: Result Comment: Elec tronically Signed By: Pedro Ward PA-C\.br\Date and Time Signed: 09/04/24 18:37 EST\.br\Electronically Co-Signed By: Jerrell Porter DO\.br\Date and Time Co-Signed: 09/06/24 05:01 EST ED Clinical Summaryon 2024 ED Clinical Summary ED Clinical Summary [place] [id number] ED Clinical Summary Person Information Name: RACHID MOJICA/[facility] Age: 33 Years : 1990 Sex: Female Language: Malaysian PCP: NONA LANDRY DO Marital Status: Single Visit Id: Visit Reason: Back pain; Neck pain; BACK/NECK PAIN Speciality: Acuity: 4 Enc Type: Emergency Med Service: Emergency Arrival: 08/30/2024 16:05:59 Discharge: 08/30/2024 18:13:19 LOS: 000 02:08 Checkin: 08/30/2024 16:05:59 Checkout: 08/30/2024 18:13:19 Dispo Type: Home (Routine DC) EVENTS: Event Name Event Status Request Date/Time Start Date/Time Complete Date/Time Arrive Complete 08/30/2024 16:05:59 08/30/2024 16:05:59 08/30/2024 16:05:59 Document Home Meds Request 08/30/2024 16:05:59 Triage Complete 08/30/2024 16:05:59 08/30/2024 16:37:38 08/30/2024 16:37:38 Registration Complete 08/30/2024 16:08:46 08/30/2024 16:08:46 08/30/2024 16:08:46 Reg Complete Request 08/30/2024 16:08:46 Reg Bed Request Complete 08/30/2024 16:08:46 08/30/2024 16:08:46 08/30/2024 16:08:46 Bed Assign Complete 08/30/2024 16:43:28 08/30/2024 16:43:28 08/30/2024 16:43:28 Dr Exam Complete 08/30/2024 16:43:28 08/30/2024 16:44:40 08/30/2024 16:44:40 RN Exam Complete 08/30/2024 16:43:28 08/30/2024 16:57:22 08/30/2024 16:57:22 Registration Request 08/30/2024 16:44:40 Dr Exam Complete 08/30/2024 16:45:42 08/30/2024 16:45:42 08/30/2024 16:45:42 Meds Admin Complete 08/30/2024 17:15:10 08/30/2024 17:19:46 X-Ray Complete 08/30/2024 17:15:10 08/30/2024 17:28:12 08/30/2024 17:48:55 Wet Read Request 08/30/2024 17:48:55 Discharge Complete 08/30/2024 18:07:21 08/30/2024 18:13:24 08/30/2024 18:13:24 Transfer Complete 08/30/2024 18:13:24 08/30/2024 18:13:24 08/30/2024 18:13:24 ADDRESS: [address] [place] [phone] PHYS DOC NOTES: MEDICAL INFORMATION: Prescriptions Given: New Medications [id number], [address] [facility] [place] [phone], [phone] methocarbamol (Robaxin-750 oral tablet) 2 Tablets By Mouth 3 times a day for 3 Days. Refills: 0. naproxen (Naprosyn 500 mg Tab) 1 Tablets By Mouth 2 times a day as needed for pain. Refills: 0. Medications to Continue with No Changes Other Medications amoxicillin-clavulan ate (Augmentin 875 mg oral tablet) 1 Tablets By Mouth every 12 hours for 7 Days. Refills: 0. brompheniramine/dext romethorphan/PSE (Bromfed DM oral syrup) 10 Milliliter By Mouth 4 times a day as needed for cold symptoms. Refills: 0. promethazine (promethazine 12.5 mg oral tablet) 1 Tablets By Mouth every 4 hours as needed for nausea/vomiting. Refills: 0. PATIENT EDUCATION INFORMATION: Instructions: Lumbosacral Strain Follow up: With: Address: When: NONA LANDRY [address] [place] [id number] [phone] Business (1) In 3 days 09/02/2024 DIAGNOSIS: Fall on ice; Strain of lumbar region Normal [facility] ED Patient Summaryon 025 ED Patient Summary ED Patient Summary [address] [address] Patient Discharge Instructions Person Information Name: RACHID MOJICA Age: 33 Years Arrival Date: 08/30/2024 16:05:59 Discharge Diagnosis: Fall on ice; Strain of lumbar region Primary Care Physician: NONA LANDRY DO Provider Information Primary Provider: Jerrell Porter DO [facility] Lab Technician:Pedro Ward PA-C The exam and treatment you received in the Emergency Department were for an urgent problem and are not intended as complete care. It is important that you follow up with a doctor, nurse practitioner, or physician???s trading assistant for ongoing care. If your symptoms [...] Follow-up Instructions: With: Address: When: NONA LANDRY [address] [place] [address] [place] [address] [phone] Business (1) In 3 days 09/02/2024 In the event that this physician does not participate in your insurance network, please consult with your insurance company to find a nearby participating provider. Patient Education Materials: Lumbosacral Strain A MESSAGE TO ALL PATIENTS REGARDING OPIOIDS PRESCRIPTION OPIOIDS: WHAT YOU NEED TO KNOW Prescription opioids can be used to help relieve gdpwzmqf-ul-moitnm pain and are often prescribed following a [...] from the Food and Drug Administration (www.fda.gov/Drugs/R esourcesForYou). ??? Visit www.cdc.gov/drugover dose to learn about the risks of opioids abuse and overdose. ??? If you believe you may be struggling with addiction, tell your health care team assistant a (more content not included)... Normal [facility] XR Spine Cervical 2 or 3 Vie wson 08-30-2024 XR Spine Cervical 2 or 3 Views Exam Date/Time: 08/30/2024 17:48 EST Reason for Exam: Trauma Report IMPRESSION: NO ACUTE OSSEOUS ABNORMALITY. EXAMINATION: XR Spine Cervical 2 or 3 Views TECHNIQUE: AP, lateral, and odontoid views HISTORY: Neck pain COMPARISONS: None available. FINDINGS: Normal alignment of the cervical spine. Cervical vertebral body heights are maintained. Mild intervertebral disc height loss at C5-C6 and C6-C7. Small degenerative endplate spurs anteriorly at C4-C5 and C5-C6. The lateral masses of C1 articulate symmetrically with C2. Atlantodental interval is preserved. No fracture or spondylolisthesis. No high-grade osseous neuroforaminal stenosis. Prevertebral soft tissues have a normal appearance. Ordering Provider: Pedro Ward FINAL REPORT Dictated: 08/30/2024 5:52 pm Trey Hoff DO Signed (Electronic Signature): 08/30/2024 5:52 pm Signed by: Trey Hoff DO Transcribed by: TAMEKA Technologist: PETE [facility] XR Spine Lumbosacral 2 or 3 Viewson 08-30-2024 XR Spine Lumbosacral 2 or 3 Views Exam Date/Time: 08/30/2024 17:48 EST Reason for Exam: Pain, Traumatic Report IMPRESSION: NO ACUTE OSSEOUS ABNORMALITY. EXAMINATION: XR Spine Lumbosacral 2 or 3 Views TECHNIQUE: AP and lateral views lumbar spine and coned-down lateral view of the lumbosacral junction HISTORY: Low back pain COMPARISONS: None available. FINDINGS: Mild dextrocurvature. Lumbar vertebral body heights are maintained. Mild intervertebral disc height loss at L5-S1. No acute fracture. No spondylolysis or spondylolisthesis. Ordering Provider: Pedro Ward FINAL REPORT Dictated: 08/30/2024 5:52 pm Trey Hoff DO Signed (Electronic Signature): 08/30/2024 5:52 pm Signed by: Trey Hoff DO Transcribed by: TAMEKA Technologist: PETE [facility] ED Note-Physicianon 08-27-19 ED Note-Physician ED Note-Physician Basic Information Time Seen: Cyrus Leon PA-C 08/26/2024 08:05 Chief Complaint pt reports x1 week of sinus pressure and l ear pain. denies any symptoms or concerns. VSS, NAD. History of Present Illness Patient is a 33-year-old female presents today for evaluation of her 1 to 2 weeks symptoms of sinus pressure and bilateral ear pain. Patient states that she had similar symptoms about 6 weeks ago that cleared up with antibiotics due to a sinus infection. She states that she was better for a couple of weeks but now her symptoms have returned. Denies any cough, chest pain, shortness of breath, dyspnea. States that she has a lot of congestion with sinus pressure and bilateral ear pain. Denies any sore throat. Denies any fevers, body aches, chills. Review of Systems No other aggravating or relieving factors no other associated symptoms no other prior treatments or complaints. Family: Reviewed and noncontributory Social: lives at home Review of systems negative unless otherwise specified in the HPI. Physical Exam Vitals & Measurements T: 36.8 ???C(Oral) HR: 82(Peripheral) RR: 17 BP: 124/82 SpO2: 100% HT: 165 cm WT: 75 kg BMI: 27.55 Nurse's notes and vital signs reviewed. General: Alert, no acute distress, patient resting comfortably Patient is not toxic or lethargic. Skin: Warm, intact, no pallor noted. There is no evidence of rash at this time. Head: Normocephalic, atraumatic Eye: Normal conjunctiva Ears, Nose, Throat: Moist mucous membranes. No posterior pharyngeal erythema no exudate swelling shift or mass. No trisumus no stridor. Tympanic membranes unremarkable bilaterally no injection erythema no posterior effusions perforation or pus. Frontal and maxillary sinus tenderness. Neck: No meningeal signs. Cardio: Regular Rate and Rhythm with normal peripheral perfusion Respiratory: No acute distress, no stridor, no retractions. CTA bilaterally. Abdomen: Soft, nontender, no masses detected. No rebound, guarding, or rigidity Neurological: Appropriate for age Psychiatric: Cooperative Procedure [] The patient has sinusitis and antibiotics are not indicated/not prescribed at this time.[SATISFIES MIPS PERFORMANCE] [x] The patient has sinusitis with symptom onset greater than10 days ago and the patient was prescribed antibiotics. [SATISFIES MIPS PERFORMANCE] [x] Patient was prescribed an amoxicillin-based antibiotic. [] Patient was prescribed a non amoxicillin-based antibiotic because [] (ex. allergy, intolerance, secondary infection like Acute Pharyngitis, Cellulitis, UTI) [] Patient was prescribed a non amoxicillin-based antibiotic. []The patient has sinusitis and was prescribed antibiotics because [](ex. patient's symptoms worsened after initial improvement, patient has secondary infection, patient is immunocompromised)[M IPS PERFORMANCE EXCEPTION/EXCLUSION] [] Patient was prescribed an amoxicillin-based antibiotic. [] Patient was prescribed a non amoxicillin-based antibiotic because [] (ex. allergy, intolerance, secondary infection like Acute Pharyngitis, Cellulitis, UTI) [] Patient was prescribed a non amoxicillin-based antibiotic. [] The patient has sinusitis with symptom onset less than or equal to 10 ago days and antibiotics WERE prescribed. [DOESNOT SATISFY MIPS PERFORMANCE] [] Patient was prescribed an amoxicillin-based antibiotic. [] Patient was prescribed a non amoxicillin-based antibiotic because [] (ex. allergy, intolerance, secondary infection like Acute Pharyngitis, Cellulitis, UTI) [] Patient was prescribed a non amoxicillin-based antibiotic. Medical Decision Making Patient is a 33-year-old female presents today for evaluation of her 1 to 2 weeks symptoms of sinus pressure and bilateral ear pain. Had similar symptoms about 6 weeks ago that cleared up with antibiotics. She was doing well until symptoms returned about 2 weeks ago. Denies any other systemic signs or symptoms. On exam the patient is afebrile nontoxic-appearing. No posterior pharyngeal erythema or edema. TMs unremarkable bilaterally. She does have frontal and maxillary sinus tenderness. CTA to bilateral lung farrell. Abdomen soft nontender. Patient likely has another sinus infection. Given her symptoms are greater than 10 days and she cleared up with antibiotics before we will go ahead and start her on Augmentin and provide her with Bromfed as needed for symptomatic management. We did discuss that we could switch her off of Augmentin given she is already had this but she wants to hold off and try this 1 more time. Patient does request Diflucan for yeast infection with antibiotics so this will be sent as well. She will be discharged home with close follow-up with her PCP. Return to ED precautions were reviewed with the patient at length. Assessment/Plan Sinusitis (J32.9: Chronic sinusitis, unspecified) Orders: amoxicillin-clavulan ate, = 1 tab(s), Oral, q12hr, X 7 day(s), # 14 tab(s), Refills(s) 0, [facility] (more content not included)... Normal [facility] Comment on above: Result Comment: Elec tronically Signed By: Cyrus Leon PA-C\.br\Date and Time Signed: 08/26/24 08:21 EST\.br\Electronically Co-Signed By: Zafar Stephens DO.br\Date and Time Co-Signed: 08/27/24 16:27 EST ED Clinical Summaryon 2024 ED Clinical Summary ED Clinical Summary [place] [id number] ED Clinical Summary Person Information Name: RACHID MOJICA/Sindhu Age: 33 Years : 1990 Sex: Female Language: Malaysian PCP: NONA LANDRY DO Marital Status: Single Visit Id: Visit Reason: Ear pain; Sinus Pain/Congestion; POSS SINUS INFECTION - EAR PAIN Speciality: Acuity: 4 Enc Type: Emergency Med Service: Emergency Arrival: 08/26/2024 07:48:59 Discharge: 08/26/2024 08:20:40 LOS: 000 00:32 Checkin: 08/26/2024 07:48:59 Checkout: 08/26/2024 08:20:40 Dispo Type: Home (Routine DC) EVENTS: Event Name Event Status Request Date/Time Start Date/Time Complete Date/Time Arrive Complete 08/26/2024 07:48:59 08/26/2024 07:48:59 08/26/2024 07:48:59 Document Home Meds Request 08/26/2024 07:48:59 Triage Complete 08/26/2024 07:48:59 08/26/2024 07:52:54 08/26/2024 07:52:54 Bed Assign Complete 08/26/2024 07:50:22 08/26/2024 07:50:22 08/26/2024 07:50:22 Dr Exam Complete 08/26/2024 07:50:22 08/26/2024 08:05:50 08/26/2024 08:05:50 RN Exam Complete 08/26/2024 07:50:22 08/26/2024 07:54:37 08/26/2024 07:54:37 Registration Complete 08/26/2024 07:51:39 08/26/2024 07:51:39 08/26/2024 07:51:39 Reg Complete Request 08/26/2024 07:51:39 Reg Bed Request Complete 08/26/2024 07:51:39 08/26/2024 07:51:39 08/26/2024 07:51:39 Registration Request 08/26/2024 08:05:50 Dr Exam Complete 08/26/2024 08:06:45 08/26/2024 08:06:45 08/26/2024 08:06:45 Discharge Complete 08/26/2024 08:16:36 08/26/2024 08:20:44 08/26/2024 08:20:44 Transfer Complete 08/26/2024 08:20:44 08/26/2024 08:20:44 08/26/2024 08:20:44 ADDRESS: [address] [place] [phone] PHYS DOC NOTES: MEDICAL INFORMATION: Prescriptions Given: New Medications [id number], [address], [place] [id number], [phone] amoxicillin-clavulan ate (Augmentin 875 mg oral tablet) 1 Tablets By Mouth every 12 hours for 7 Days. Refills: 0. brompheniramine/dext romethorphan/PSE (Bromfed DM oral syrup) 10 Milliliter By Mouth 4 times a day as needed for cold symptoms. Refills: 0. Medications to Continue with No Changes Other Medications promethazine (promethazine 12.5 mg oral tablet) 1 Tablets By Mouth every 4 hours as needed for nausea/vomiting. Refills: 0. PATIENT EDUCATION INFORMATION: Instructions: Sinus Infection, Adult Follow up: With: Address: When: [place] [address] [phone] Business (1) In 3 days 08/29/2024 DIAGNOSIS: Sinusitis Normal [facility] ED Patient Summaryon 025 ED Patient Summary ED Patient Summary [address] [address] Patient Discharge Instructions Person Information Name: RACHID MOJICA Age: 33 Years Arrival Date: 08/26/2024 07:48:59 Discharge Diagnosis: Sinusitis Primary Care Physician: NONA LANDRY DO Provider Information Primary Provider: Zafar Stephens DO [facility] Lab Technician:Carolyn PA-C, Cyrus C. The exam and treatment you received in the Emergency Department were for an urgent problem and are not intended as complete care. It is important that you follow up with a doctor, nurse practitioner, or physician???s trading assistant for ongoing care. If your symptoms become worse or you do not improve as expected and you are unable to reach your usual health care provider, you should return to the Emergency Department. We are available 24 hours a day. YUNIOR RACHID has been given the following list of patient education materials, prescriptions and follow-up instructions: Follow-up Instructions: With: Address: When: NONA LANDRY [address] [place] [phone] Business (1) In 3 days 08/29/2024 In the event that this physician does not participate in your insurance network, please consult with your insurance company to find a nearby participating provider. Patient Education Materials: Sinus Infection, Adult A MESSAGE TO ALL PATIENTS REGARDING OPIOIDS PRESCRIPTION OPIOIDS: WHAT YOU NEED TO KNOW Prescription opioids can be used to help relieve givgpxhb-ha-kvnure pain and are often prescribed following a [...] from the Food and Drug Administration (www.fda.gov/Drugs/R esourcesForYou). ??? Visit www.cdc.gov/drugover dose to learn about the risks of opioids abuse and overdose. ??? If you believe you may be struggling with addiction, tell your health care team assistant and ask for eduin (more content not included)... Normal [facility] ALL BASIC METABOLIC PANELon 08-06-2024 Anion gap [Moles/Vol] 11.9 mmol/L [facility] Calcium [Mass/Vol] 9 mg/dL 8.5 - 10. 1 mg/dL [facility] Chloride [Moles/Vol] 105 mmol/L 98 - 10 7 mmol/L [facility] CO2 [Moles/Vol] 30.4 mmol/L 21.0 - 32.0 mmol/L [facility] Creatinine [Mass/Vol] 0.81 mg/dL 0.55 - 1.02 mg/dL [facility] GFR/1.73 sq M.predicted CKD-EPI (S/P/Bld) [Vol rate/Area] >60 >=60 mL/min/1.73m 2 [facility] Glucose [Mass/Vol] 88 mg/dL 74 - 106 mg/dL [facility] Interpretation and review of laboratory results Abnormal [facility] Potassium [Moles/Vol] 4.3 mmol/L 3.5 - 5.1 mmol/L [facility] Sodium [Moles/Vol] 143 mmol/L 136 - 145 mmol/L [facility] TBH EGFR-NON AF ARMENIAN >60 >=60 mL/min/1.73m 2 [facility] Urea nitrogen [Mass/Vol] 5 mg/dL Low 7.0 - 18.0 mg/dL [facility] Urea nitrogen/Creatinine [Mass ratio] 6.2 mg/mg [facility] ED Clinical Summaryon 2024 ED Clinical Summary ED Clinical Summary [place] [id number] ED Clinical Summary Person Information Name: RACHID MOJICA/[facility] Age: 33 Years : 1990 Sex: Female Language: Malaysian PCP: NONA LANDRY DO Marital Status: Single Visit Id: Visit Reason: Body aches; Sinus Pain/Congestion; Cough; CONGESTION-NASAL DRAINAGE Speciality: Acuity: 4 Enc Type: Emergency Med Service: Emergency Arrival: 08/03/2024 07:33:20 Discharge: 08/03/2024 08:03:22 LOS: 000 00:30 Checkin: 08/03/2024 07:33:20 Checkout: 08/03/2024 08:03:22 Dispo Type: Home (Routine DC) EVENTS: Event Name Event Status Request Date/Time Start Date/Time Complete Date/Time Arrive Complete 08/03/2024 07:33:20 08/03/2024 07:33:20 08/03/2024 07:33:20 Document Home Meds Request 08/03/2024 07:33:20 Triage Complete 08/03/2024 07:33:20 08/03/2024 07:43:18 08/03/2024 07:43:18 Bed Assign Complete 08/03/2024 07:37:39 08/03/2024 07:37:39 08/03/2024 07:37:39 Dr Exam Complete 08/03/2024 07:37:39 08/03/2024 07:40:36 08/03/2024 07:40:36 RN Exam Complete 08/03/2024 07:37:39 08/03/2024 07:44:33 08/03/2024 07:44:33 Registration Complete 08/03/2024 07:38:38 08/03/2024 07:38:38 08/03/2024 07:38:38 Reg Complete Request 08/03/2024 07:38:38 Reg Bed Request Complete 08/03/2024 07:38:39 08/03/2024 07:38:39 08/03/2024 07:38:39 Registration Request 08/03/2024 07:40:36 Discharge Complete 08/03/2024 07:50:43 08/03/2024 08:03:28 08/03/2024 08:03:28 Transfer Complete 08/03/2024 08:03:28 08/03/2024 08:03:28 08/03/2024 08:03:28 ADDRESS: [address] [place] [phone] PHYS DOC NOTES: MEDICAL INFORMATION: Prescriptions Given: New Medications [id number], [address], [place] [id number], [phone] amoxicillin-clavulan ate (Augmentin 875 mg-125 mg Tab) 1 Tablets By Mouth 2 times a day for 7 Days. Refills: 0. fluticasone nasal (Flonase 0.05 mg/inh [place]) 1 Sprays Nasal Inhalation 2 times a day for 7 Days. each nostril. Refills: 0. Medications to Continue with No Changes Other Medications promethazine (promethazine 12.5 mg oral tablet) 1 Tablets By Mouth every 4 hours as needed for nausea/vomiting. Refills: 0. PATIENT EDUCATION INFORMATION: Instructions: Follow up: With: Address: When: [place] [phone] ([place]inn) In 3 days DIAGNOSIS: Sinusitis Normal [facility] ED Note-Physicianon 08-03-19 ED Note-Physician ED Note-Physician Basic Information Time Seen: Daryn Roman DO 08/03/2024 07:40 Chief Complaint patient presents with cough, congestion, body aches and productive cough since june History of Present Illness 33 female presents with upper respiratory infectious symptoms. Patient states that she has had this since around Marisol roughly 3 weeks ago. She states that she has been to see the doctor and they just keep putting her on Claritin and srjw-vpj-wguzehg medications and Sudafed. Patient states despite this she is continue to have sinus pressure and drainage and now she is even coughing up some occasional bloody sputum. She denies any chance of stating hysterectomy. She has not recently been on any antibiotics or steroids. No other aggravating or relieving factors no other associated symptoms no other prior treatments or complaints. Family: Reviewed and noncontributory Social: lives at home Review of systems negative unless otherwise specified in the HPI. Physical Exam Vitals & Measurements T: 36.6 ???C(Oral) HR: 74(Peripheral) RR: 18 BP: 124/77 SpO2: 99% HT: 165 cm WT: 75.1 kg BMI: 27.58 Nurse's notes and vital signs reviewed. General: Alert, no acute distress, patient resting comfortably Patient is not toxic or lethargic. Skin: Warm, intact, no pallor noted. There is no evidence of rash at this time. Head: Normocephalic, atraumatic Eye: Normal conjunctiva Ears, Nose, Throat: Moist mucous membranes. No posterior pharyngeal erythema no exudate swelling shift or mass. No trisumus no stridor. Tympanic membranes unremarkable bilaterally no injection erythema no posterior effusions perforation or pus. Some tenderness palpation over the maxillary sinuses Neck: No meningeal signs. Cardio: Regular Rate and Rhythm with normal peripheral perfusion Respiratory: No acute distress, no stridor, no retractions Abdomen: Soft, nontender, no masses detected. No rebound, guarding, or rigidity Neurological: Appropriate for age Psychiatric: Cooperative Medical Decision Making Patient is treated with Flonase and Augmentin provided with a note for work educated on supportive therapy and discharged home to follow-up in the outpatient setting. [] The patient has sinusitis and antibiotics are not indicated/not prescribed at this time.[SATISFIES MIPS PERFORMANCE] [x] The patient has sinusitis with symptom onset greater than10 days ago and the patient was prescribed antibiotics. [SATISFIES MIPS PERFORMANCE] [x] Patient was prescribed an amoxicillin-based antibiotic. [] Patient was prescribed a non amoxicillin-based antibiotic because [] (ex. allergy, intolerance, secondary infection like Acute Pharyngitis, Cellulitis, UTI) [] Patient was prescribed a non amoxicillin-based antibiotic. []The patient has sinusitis and was prescribed antibiotics because [](ex. patient's symptoms worsened after initial improvement, patient has secondary infection, patient is immunocompromised)[M IPS PERFORMANCE EXCEPTION/EXCLUSION] [] Patient was prescribed an amoxicillin-based antibiotic. [] Patient was prescribed a non amoxicillin-based antibiotic because [] (ex. allergy, intolerance, secondary infection like Acute Pharyngitis, Cellulitis, UTI) [] Patient was prescribed a non amoxicillin-based antibiotic. [] The patient has sinusitis with symptom onset less than or equal to 10 ago days and antibiotics WERE prescribed. [DOESNOT SATISFY MIPS PERFORMANCE] [] Patient was prescribed an amoxicillin-based antibiotic. [] Patient was prescribed a non amoxicillin-based antibiotic because [] (ex. allergy, intolerance, secondary infection like Acute Pharyngitis, Cellulitis, UTI) [] Patient was prescribed a non amoxicillin-based antibiotic. Assessment/Plan Sinusitis (J32.9: Chronic sinusitis, unspecified) Orders: amoxicillin-clavulan ate, 1 tab(s), Oral, BID for 7 day(s), 14 tab(s), Refill(s) 0, [id number], 165, cm, 08/03/24 7:43:00 EST, Height/Length Dosing, 75.1, kg, 08/03/24 7:43:00 EST, Weight Dosing fluticasone nasal, 1 spray(s), Nasal, BID for 7 day(s), 16 gm, Refill(s) 0, each nostril, [id number], 165, cm, 08/03/24 7:43:00 EST, Height/Length Dosing, 75.1, kg, 08/03/24 7:43:00 EST, Weight Dosing Disposition Plan Discharge Prescription List Prescriptions Augmentin 875 mg-125 mg Tab, 1 tab(s), Oral, BID Flonase 0.05 mg/inh [place], 1 spray(s), Nasal, BID Follow-up With When Contact Information NONA LANDRY In 3 days [address] [place] [address]- [phone] Business (1) Additional Instructions: Problem List/Past Medical History Ongoing No qualifying data Historical No qualifying data Medications Inpatient No active inpatient medications Home Augmentin 875 mg-125 mg Tab, 1 tab(s), Oral, BID Flonase 0.05 mg/inh [place], 1 spray(s), Nasal, BID promethazine 12.5 mg oral tablet, 12.5 mg= 1 tab(s), Oral, q4hr, PRN Allergies No Known Allergies Social History Alcohol - Denies Alcoho (more content not included)... Normal [facility] Comment on above: Result Comment: Elec tronically Signed By: Daryn Roman DO\.br\Date and Time Signed: 08/03/24 07:53 EST ED Patient Education Noteon 08-03-2024 ED Patient Education Note ED Patient Education Note Normal [facility] ED Patient Summaryon 025 ED Patient Summary ED Patient Summary [address] [address] Patient Discharge Instructions Person Information Name: RACHID MOJICA Age: 33 Years Arrival Date: 08/03/2024 07:33:20 Discharge Diagnosis: Sinusitis Primary Care Physician: NONA LANDRY DO Provider Information Primary Provider: Daryn Roman DO Advanced R And D Lab Technician:None The exam and treatment you received in the Emergency Department were for an urgent problem and are not intended as complete care. It is important that you follow up with a doctor, nurse practitioner, or physician???s trading assistant for ongoing care. If your symptoms become worse or you do not improve as expected and you are unable to reach your usual health care provider, you should return to the Emergency Department. We are available 24 hours a day. YUNIOR RACHID has been given the following list of patient education materials, prescriptions and follow-up instructions: Follow-up Instructions: With: Address: When: NONA LANDRY [address] [place], [place] [address] [address] [phone] Business (1) In 3 days In the event that this physician does not participate in your insurance network, please consult with your insurance company to find a nearby participating provider. Patient Education Materials: A MESSAGE TO ALL PATIENTS REGARDING OPIOIDS PRESCRIPTION OPIOIDS: WHAT YOU NEED TO KNOW Prescription opioids can be used to help relieve finxheef-ko-vaosod pain and are often prescribed following a [...] from the Food and Drug Administration (www.fda.gov/Drugs/R esourcesForYou). ??? Visit www.cdc.gov/drugover dose to learn about the risks of opioids abuse and overdose. ??? If you believe you may be struggling with addiction, tell your health care team assistant and ask for guidance or call [facility]???S National Helpline at 3-959-329-XXRJ. (more content not included)... Normal [facility] ED Note-Physicianon 07-01-20 ED Note-Physician ED Note-Physician Basic Information Time Seen: Heidi Porter PA-C 06/30/2024 16:58 Chief Complaint pt reports cough/congestion/jan [...] nausea/vomiting, # 20 tab(s), Refills(s) 0, Pharmacy: [id number], 165, cm, 06/30/24 17:00:00 EST, [...] In 3 days 07/03/2024 EST [address] [place] [address]- [phone] [facility] (1) Additional Instructions: Call to schedule a follow-up appointment with your family physician in the next 2 to 3 days. Use the Phenergan as needed for nausea. Return to the ED with any new or worsening symptoms. Patient Education Nausea and Vomiting, Adult, Ugiz-wt-Doir Attestation Patient seen and evaluated by the physician trading assistant. Attending physician was present in the emergency department and supervised care. This visit was performed by both the physician and an APC. I performed all aspects of the MDM as documented. This report was transcribed using voice recognition software. Every effort was made to ensure accuracy, however, inadvertently computerized recruitment intern mistakes may be present. I performed a [...] Tobacco Use (more content not included)... Normal [facility] Comment on above: Result Comment: Elec tronically Signed By: Heidi Porter PA-C\.br\Date and Time Signed: 06/30/24 22:36 EST\.br\Electronically Co-Signed By: Jerrell Porter DO\.br\Date and Time Co-Signed: 07/01/24 07:07 EST ED Clinical Summaryon 2023 ED Clinical Summary ED Clinical Summary [place] [id number] ED Clinical Summary Person Information Name: RACHID MOJICA/[facility] Age: 33 Years : 1990 Sex: Female Language: Malaysian PCP: NONA LANDRY DO Marital Status: Single [...] 06/30/2024 18:30:46 06/30/2024 18:30:46 06/30/2024 18:30:46 ADDRESS: [address] [place] [address] [phone] PHYS DOC NOTES: MEDICAL INFORMATION: Prescriptions Given: New Medications [id number], [address], [place] [id number], [phone] promethazine (promethazine 12.5 mg oral tablet) 1 Tablets By Mouth every 4 hours as needed for nausea/vomiting. Refills: 0. PATIENT EDUCATION INFORMATION: Instructions: Nausea and Vomiting, Adult, Ikcm-af-Fzuu Follow up: With: Address: When: NONA LANDRY [address] [facility] [place] [phone] (1) In 3 days 07/03/2024 Comments: Call to schedule a follow-up appointment with your family physician in the next 2 to 3 days. Use the Phenergan as needed for nausea. Return to the ED with any new or worsening symptoms. DIAGNOSIS: Nausea Normal [facility] ED Patient Summaryon 024 ED Patient Summary ED Patient Summary [address] [address] Patient Discharge Instructions Person Information Name: RACHID MOJICA Age: 33 Years Arrival Date: 06/30/2024 16:54:04 Discharge Diagnosis: Nausea Primary Care Physician: NONA LANDRY DO Provider Information Primary Provider: Jerrell Porter DO Advanced R And D Lab Technician:Heidi Porter PA-C The exam and treatment you received in the Emergency Department were for an urgent problem and are not intended as complete care. It is important that you follow up with a doctor, nurse practitioner, or physician???s trading assistant for ongoing care. If your symptoms [...] Follow-up Instructions: With: Address: When: NONA LANDRY [address] [place] [phone] (1) In 3 days 07/03/2024 Comments: Call [...] Patient Education Materials: Nausea and Vomiting, Adult, Vqvr-gr-Fffu A MESSAGE TO ALL PATIENTS REGARDING OPIOIDS PRESCRIPTION OPIOIDS: WHAT YOU NEED TO KNOW Prescription opioids can be used to help relieve oxabtjsb-jk-lfysmn pain and are often prescribed following a [...] (www.fda.gov/Drugs/R esourcesFo (more content not included)... Normal [facility] SEROLOGYOrdered By: Dennis Goodman on 06-30-2024 HCG.beta subunit (U) [Moles/Vol] Negative Normal [facility] Sero U BetaHcg Qualon 06-30-2024 HCG.beta subunit (U) [Moles/Vol] Negative Normal [facility] Comment on above: Performed By: #### 2 [id number] #### [facility] [address] [place] [address] UA with Cult Rflxon 06-30-20 24 Bilirubin Ql (U) Negative Normal Negative [facility] Comment on above: Performed By: #### 4 [id number] #### [facility] [address] [place] [address] Clarity (U) Clear Normal Clear [facility] Comment on above: Performed By: #### 4 [id number] #### [facility] [address] [place] [address] Color (U) Light-Yellow Normal Yellow [facility] Comment on above: Result Comment: Micr oscopic readings are only performed on those samples that meet specific criteria set forth by [facility]. Performed By: #### 4 [id number] #### [facility] [address] [place] [address] Glucose Ql (U) Negative Normal Negative [facility] Comment on above: Performed By: #### 4 [id number] #### [facility] [address] [place] [address] Hemoglobin Auto test strip (U) [Mass/Vol] Negative Normal Negative [facility] Comment on above: Performed By: #### 4 [id number] #### [facility] [address] [place] [address] Ketones Auto test strip Ql (U) Negative Normal Negative [facility] Comment on above: Performed By: #### 4 [id number] #### [facility] [address] [place] [address] Leukocyte esterase Auto test strip Ql (U) Negative Normal Negative [facility] Comment on above: Performed By: #### 4 [id number] #### [facility] [address] [place] [address] Nitrite Auto test strip Ql (U) Negative Normal Negative [facility] Comment on above: Performed By: #### 4 [id number] #### [facility] [address] [place] [address] pH (U) 5.5 [pH] Invalid Interpretation Code 5.0-9.0 [facility] Comment on above: Performed By: #### 4 [id number] #### [facility] [address] [place] [address] Protein Ql (U) Negative Normal Negative [facility] Comment on above: Performed By: #### 4 [id number] #### [facility] [address] [place] [address] Specific gravity (U) [Rel density] 1.025 Invalid Interpretation Code 1.005-1.030 [facility] Comment on above: Performed By: #### 4 [id number] #### [facility] [address] [place] [address] Urobilinogen (U) [Mass/Vol] Negative Normal Negative [facility] Comment on above: Performed By: #### 4 [id number] #### [facility] [address] [place] [address] Type of Urine collection method Clean Catch Normal [facility] Comment on above: Performed By: #### 4 [id number] #### [facility] [address] [place] [address] URINALYSISOrdered By: SYSTEM SYSTEM on 06-30-2024 Bilirubin Ql (U) Negative Normal Negativemg/ d L [facility] UA Auto SS Clarity (U) Clear (06/30/24 5:18 PM) Normal Clear [facility] UA Auto SS Color (U) Light-Yellow 1 (06/30/24 5:18 PM) Normal Yellow [facility] UA Auto SS Comment on above: Interpretive Data: M icroscopic readings are only performed on those samples that meet specific criteria set forth by [facility]. Glucose Ql (U) Negative Normal [...] PM) Invalid Interpretation Code 5.0 - 9.0 [facility] UA Auto SS Protein Ql (U) Negative Normal Negativemg/d L [facility] UA Auto SS Specific gravity (U) [Rel density] 1.025 *NA* (06/30/24 5:18 PM) Invalid Interpretation Code 1.005 - 1.030 [facility] UA Auto SS Urobilinogen (U) [Mass/Vol] Negative Normal Negativemg/d L [facility] UA Auto SS URINALYSISOrdered By: Leny Carpenter on 06-30-2024 UA Spec Desc Clean Catch (06/30/24 5:18 PM) Normal [facility] UA Auto SS HbA1c (Bld) [Mass fraction]o n 04-02-2024 Interpretation and review of laboratory results [facility]ology and Cell countson 04-02-2024 HbA1c (Bld) [Mass fraction] 5.0 % [facility] 11-10-2023 36 I spoke with Sarahy Black with [employer] today, the medication has been denied, it is not covered with the patient's diagnosis. There are 3 diagnosis's that are covered, the patient's diagnosis is not one of them. Denial letter to be faxed and scanned. [facility] 3610-13-2023 36 Left a second voicemail for patient requesting a return call regarding appeal [facility] 3610-11-2023 36 Received appeal forms, there are a few sections the patient needs to complete before it can be submitted. I called and left a voicemail for Rachid to contact our office. [facility] 10-07-2023 36 Spoke with Radha Smith with [employer], associate customer support. She is faxing forms for the appeal. [phone] Ref# [id number] [facility] 10-06-2023 36 Lisa with [facility] called back, they do not have the appeal forms and recommended starting a new PA. They are unable to start the PA on CMM. PA through [employer]. [facility] 36 Pharmacy is faxing appeal forms to our office. [facility] Refillon 10-04-2023 Refill [id number] Rachid Mojica 1990 F Date Provider Department Center 10/04/2023 SONIYA RANGEL [facility] END[facility]CR [facility] Family History Family Status - Relation Status Age at Mother Alive Father Alive Reason for Visit and Comments: Med Refill [[id number]] [facility] Orders Onlyon 09-26-2023 Orders Only [id number] Rachid Mojica 1990 F Date Provider Department Center 09/26/2023 SONIYA RANGEL [facility] END[facility] Family History Family Status - Relation Status Age at Mother Alive Father Alive [facility] Refillon 08-03-2023 Refill [id number] Rachid Mojica 1990 F Date Provider Department Center 08/03/2023 [facility] Family History Family Status - Relation Status Age at Mother Alive Father Alive Reason for Visit and Comments: Med Refill [[id number]] [facility] Orders Onlyon 07-26-2023 Orders Only [id number] Rachid Mojica 1990 F Date Provider Department [place] 07/26/2023 [id number]-TQJLIAHSCRLUNA LAMAR*[facility] END[facility] Family History Family Status - Relation Status Age at Mother Alive Father Alive [facility] Orders Onlyon 07-12-2023 Orders Only [id number] Rachid Mojica 1990 F Date Provider Department Center 07/12/2023 SONIYA RANGEL [facility] Family History Family Status - Relation Status Age at Mother Alive Father Alive [facility] Patient Messageon 07-12-2023 Patient Message [id number] Rachid Mojica 1990 F Date Provider Department Center 07/12/202305447-RQQWSITIFFANIE SHETH [facility] SURG Second Fl Chart Close Cosign Required by: Rogerio Quintanilla MD[[id number]] Family History Family Status - Relation Status Age at Mother Alive Father Alive [facility] 36on 07-01-2023 36 [facility] faxed PA denied for Octreotide Acetate on 06/29/2023 [facility] 36on 06-29-2023 36 PA initiated through cover my meds Rachid Mojica (Mares: [id number]) - [id number] Need help? Call us at [facility] The plan will fax you a determination, typically within 1 to 5 business days. How do I follow up? Drug Octreotide Acetate 50MCG/ML solution Form [facility] Follow-Upon 06-27-2023 Follow-Up [id number] Nicolas 1990 F Date Provider Department [place] 06/27/2023 SONIYA RANGEL [facility] Family History Family Status - Relation Status Age at Mother Alive Father Alive Level of Service:19003 [place] OFFICE/OUTPATIENT ESTABLISHED MOD MDM 30-39 MIN (GC,25) Reason for Visit and Comments: Follow-up [[id number]] - Patient feels medication still not working. [facility] Patient Messageon 06-20-2023 Patient Message [id number] Nicolas 1990 F Date Provider Department [place] 06/20/2023 4078-MAT, ANEEBA [facility] Family History Family Status - Relation Status Age at Mother Alive Father Alive [facility] Refillon 06-08-2023 Refill [id number] Rachid Mojica 1990 F Date Provider Department [place] 06/08/2023 4078-MAT, ANEEBA [facility] Family History Family Status - Relation Status Age at Mother Alive Father Alive Reason for Visit and Comments: Med Refill [[id number]] [facility] Follow-Upon 03-07-2023 Follow-Up [id number] Rachid Mojica 1990 F Date Provider Department [place] 03/07/2023 4078-MAT, ARSLANEBA [facility] END[facility] Family History Family Status - Relation Status Age at Mother Alive Father Alive Level of Service:98780 [place] OFFICE/OUTPATIENT ESTABLISHED MOD MDM 30-39 MIN (GC) Reason for Visit and Comments: Follow-up [[id number]] [facility] Orders Onlyon 01-06-2023 Orders Only [id number] Rachid Mojica 1990 F Date Provider Department [place] 01/06/2023 324DIMITRY HERNANDEZ [facility] Family History Family Status - Relation Status Age at Mother Alive Father Alive [facility] 37on 12-27-2022 37 Follow up in 4-6 weeks [facility] Follow-Upon 12-27-2022 Follow-Up [id number] Nicolas 1990 F Date Provider Department Center 12/27/2022 407DAVIS CHIN [facility] Family History Family Status - Relation Status Age at Mother Alive Father Alive Level of Service:23420 [place] OFFICE/OUTPATIENT ESTABLISHED MOD MDM 30-39 MIN (GC) Reason for Visit and Comments: Follow-up [[id number]] - Hypoglycemia Normal [facility] Office Visiton 12-23-2022 Follow-up visit [id number] Rachid Mojica 1990 F Date Provider Department Center 12/23/202292655-JHDXIIZFVLLUNA LAMAR*[facility] Family History Family Status - Relation Status Age at Mother Alive Father Alive Level of Service:45313 [place] OFFICE/OUTPATIENT NEW LOW MDM 30-44 MINUTES Reason for Visit and Comments: New Patient [632] - New Patient. Having issues with her sugar. Normal [facility] .UA Microscp Aon 03-29-2021 UA Hyline Cast Qual 0-2 Normal Negative [facility] Comment on above: Performed By: #### C [id number] #### [address] [address] UA Mucus Present Abnormal Absent [facility] Comment on above: Performed By: #### C [id number] #### [address] [address] UA RBC Quant 0 /HPF Normal 0-5 [facility] Comment on above: Performed By: #### C [id number] #### [address] [address] UA Squepi Cells Quant 6 /HPF Normal 0-29 [facility] Comment on above: Performed By: #### C [id number] #### [place] [id number] UA WBC Quant 1 /HPF Normal 0-5 [facility] Comment on above: Performed By: #### C [id number] #### [place] [id number] .eGFRon 03-29-2021 eGFR Non-AA >60 Normal >=60 [facility] Comment on above: Result Comment: Stag es [...] years Performed By: #### E GFR #### [address] [address] eGFR AA >60 Normal >=60 [facility] Comment on above: Result Comment: See comment. Performed By: #### E GFR #### [address] [address] Basic Metabolic Profileon Creatinine [Mass/Vol] 0.90 mg/dL Normal 0.44-1.03 [facility] Comment on above: Performed By: #### C [id number] #### [address] [address] Urea nitrogen [Mass/Vol] 12 mg/dL Normal 8-26 [facility] Comment on above: Performed By: #### C [id number] #### [address] [address] Urea nitrogen/Creatinine [Mass ratio] 13.3 mg/mg Normal 10.0-20.0 [facility] Comment on above: Performed By: #### C [id number] #### [address] [address] Anion gap [Moles/Vol] 13 mmol/L Normal 7-17 [facility] Comment on above: Performed By: #### C [id number] #### [address] [address] Calcium [Mass/Vol] 8.9 mg/dL Normal 8.5-10.3 [facility] Comment on above: Performed By: #### C [id number] #### [address] [address] Chloride [Moles/Vol] 108 mmol/L Normal 98-110 [facility] Comment on above: Performed By: #### C [id number] #### [address] [address] CO2 [Moles/Vol] 19 mmol/L Low 22-32 [facility] Comment on above: Performed By: #### C [id number] #### [address] [address] Glucose [Mass/Vol] 90 mg/dL Normal 70-99 [facility] Comment on above: Performed By: #### C [id number] #### [address] [address] Potassium [Moles/Vol] 3.6 mmol/L Normal 3.4-4.8 [facility] Comment on above: Performed By: #### C [id number] #### [address] [address] Sodium [Moles/Vol] 136 mmol/L Normal 133-142 [facility] Comment on above: Performed By: #### C [id number] #### [address] [address] CBC w/ Diffon 03-29-2021 Erythrocyte distribution width (RBC) [Ratio] 12.9 % Normal 11.6-14.8 [facility] Comment on above: Performed By: #### C BC #### [address] [address] Hematocrit (Bld) [Volume fraction] 44.4 % Normal 36.0-46.0 [facility] Comment on above: Performed By: #### C BC #### [address] [address] Hemoglobin (Bld) [Mass/Vol] 15.1 g/dL Normal 12.0-16.0 [facility] Comment on above: Performed By: #### C BC #### [address] [address] MCH (RBC) [Entitic mass] 31.8 pg Normal 27.0-35.0 [facility] Comment on above: Performed By: #### C BC #### [address] [address] MCHC 34.0 % Normal 31.0-37.0 [facility] Comment on above: Performed By: #### C BC #### [address] [address] MCV (RBC) [Entitic vol] 93.4 fL Normal 80.0-100.0 [facility] Comment on above: Performed By: #### C BC #### [address] [address] Platelet 190 x10*3/mcL Normal 150-350 [facility] Comment on above: Performed By: #### C BC #### [address] [address] Platelet mean volume (Bld) [Entitic vol] 8.7 fL Normal 6.7-10.6 [facility] Comment on above: Performed By: #### C BC #### [address] [address] RBC 4.75 x10*6/mcL Normal 3.80-5.20 [facility] Comment on above: Performed By: #### C BC #### [address] [address] WBC 9.5 x10*3/mcL Normal 4.5-11.0 [facility] Comment on above: Performed By: #### C BC #### [address] [address] CRPon 03-29-2021 CRP [Mass/Vol] mg/L Normal 0.00-0.75 [facility] Comment on above: Result Comment: CRP measurement is useful for assessment of non-specific INFLAMMATORY RESPONSE to infection or injury AND is a sensitive MARKER of ACUTE INFLAMMATION including CARDIAC RISK ASSESSMENT. CARDIAC patients with elevated CRP are POTENTIALLY at a HIGHER RISK OF FUTURE CARDIAC EVENTS. Performed By: #### C #### [facility] [address] [place] [address] CT Abdomen Pelvis w/ IV Cont roverto [...] partial bowel resection, hysterectomy. Radiation Dose Estimate: CTDI(mGy):0.084295 / / / kVp:120.758065 / mAs:0.870912 / / / DLP(mGy-cm):4.027097 Body Part: Abdomen CTDI(mGy):11.076443 / / / kVp:100.685496 / mAs:158.648619 / / / DLP(mGy-cm):553.7199 71Body Part: Abdomen Final Dictated by: Justino Whitman MD Dictated DT/TM: 03.29.2021 4:30 pm Signed by: Justino Whitman MD Signed (Electronic Signature): 03.29.2021 4:44 pm Transcribed DT/TM: 03.29.2021 4:42 pm (If Report Is Signed, Electronically Signed in Other Vendor System) Normal [facility] Diff Autoon 03-29-2021 Baso Absolute 0.0 x10*3/mcL Normal 0.0-0.2 [facility] Comment on above: Performed By: #### . Automated Diff #### [address] [address] Basophils/100 WBC (Bld) 0.5 % Normal 0.0-1.5 [facility] Comment on above: Performed By: #### . Automated Diff #### [address] [address] Eos Absolute 0.1 x10*3/mcL Normal 0.0-0.4 [facility] Comment on above: Performed By: #### . Automated Diff #### [address] [address] Eosinophils/100 WBC (Bld) 1.3 % Normal 0.0-5.4 [facility] Comment on above: Performed By: #### . Automated Diff #### [address] [address] Lymph Absolute 5.2 x10*3/mcL High 1.0-4.8 [facility] Comment on above: Performed By: #### . Automated Diff #### [address] [address] Lymphocytes/100 WBC (Bld) 54.8 % High 27.2-40.8 [facility] Comment on above: Performed By: #### . Automated Diff #### [place] [id number] [place] Absolute 0.7 x10*3/mcL Normal 0.1-1.1 [facility] Comment on above: Performed By: #### . Automated Diff #### [place] [id number] Monocytes/100 WBC (Bld) 7.3 % Normal 3.7-11.9 [facility] Comment on above: Performed By: #### . Automated Diff #### [place] [id number] Neutro Absolute 3.4 x10*3/mcL Normal 1.8-7.7 [facility] Comment on above: Performed By: #### . Automated Diff #### [place] [address] Neutro Auto 36.1 % Low 47.2-70.8 [facility] Comment on above: Performed By: #### . Automated Diff #### [place] [id number] ED Clinical Summaryon 2020 [place] [address] ED Clinical Summary Person Information Name: Rachid Mojica/[facility] Age: 30 Years : 1990 Sex: Female PCP: Marital Status: Phone: Race: White Ethnicity: Not or Language: Malaysian Visit Reason: Abdominal pain; Abdominal pain Acuity: 3 Enc Type: Emergency Med Service: Emergency Medicine Arrival: 03/29/2021 11:50:50 Discharge: 03/29/2021 18:01:00 LOS: 000 06:11 Checkin: 03/29/2021 11:50:50 Checkout: 03/29/2021 18:01:00 Dispo Type: Home or Self Care Address: [address] [place], [place] [address]an [facility] [address] Provider Notes: Diagnosis: 1:RLQ abdominal pain; 2:Endometriosis; [...] range between ( 27.2 and 40.8 ) [place] Auto: 7.3 % -- Normal range between [...] range between ( 36.0 and 46.0 ) [place] Absolute: 0.7 x10 MCH: 31.8 pg -- [...] This Visit Final Med List: New Medications [facility] [place] [address] [address] [place], [place] [id number], [phone] hydrocodone-acetamin ophen ([place] 5 mg-325 mg oral tablet) 1 Tabs Oral (given by mouth) every 6 hours as needed as needed for pain for 3 Days. Refills: 0. Last Dose: ibuprofen (ibuprofen 800 mg oral tablet) 1 Tabs Oral (given by mouth) 3 times a day as needed for pain. Refills: 0. Last Dose: (more content not included)... Normal [facility] ED Note-Physicianon 03-29-20 ED Note-Physician Chief Complaint [...] qualifying data available (MRI) Aundrea Lewis Normal [facility] Hep Func Panelon 03-29-2021 Albumin [Mass/Vol] 4.2 g/dL Normal 3.2-4.9 [facility] Comment on above: Performed By: #### L IVER #### [facility] [address] [place] [address] Alk Phos 48 IU/L Normal 32-91 [facility] Comment on above: Performed By: #### L IVER #### [facility] [address] [place] [address] ALT [Catalytic activity/Vol] 25 U/L Normal 14-54 [facility] Comment on above: Performed By: #### L IVER #### [facility] [address] [place] [address] AST [Catalytic activity/Vol] 26 U/L Normal 15-41 [facility] Comment on above: Performed By: #### L IVER #### [address] [address] Bili Direct 0.2 mg/dL Normal 0.1-0.5 [facility] Comment on above: Performed By: #### L IVER #### [address] [address] Bili Indirect 0.6 mg/dL Normal 0.0-1.0 [facility] Comment on above: Performed By: #### L IVER #### [address] [address] Bili Total 0.8 mg/dL Normal 0.3-1.2 [facility] Comment on above: Performed By: #### L IVER #### [address] [address] Protein [Mass/Vol] 7.3 g/dL Normal 6.5-8.1 [facility] Comment on above: Performed By: #### L IVER #### [address] [address] Lipaseon 03-29-2021 Lipase Lvl 29 IU/L Normal 22-51 [facility] Comment on above: Performed By: #### L IP #### [address] [address] UA w Culture if Indon 2020 Color (U) Yellow Normal [facility] Comment on above: Performed By: #### U CI #### [address] [address] Ketones Ql (U) Negative Normal Negative [facility] Comment on above: Performed By: #### U CI #### [address] [address] UA Blood Negative Normal Negative [facility] Comment on above: Performed By: #### U CI #### [address] [address] UA Clarity Clear Normal [facility] Comment on above: Performed By: #### U CI #### [address] [place] [address] UA Glucose Normal Normal Negative [facility] Comment on above: Performed By: #### U CI #### [address] [place] [address] UA Leukocyte Esterase Negative Normal Negative [facility] Comment on above: Performed By: #### U CI #### [address] [address] UA Nitrite Negative Normal Negative [facility] Comment on above: Performed By: #### U CI #### [address] [address] UA pH 5.5 Normal 4.5 - 7.8 [facility] Comment on above: Performed By: #### U CI #### [address] [address] UA Protein 10 mg/dL Normal Negative [facility] Comment on above: Performed By: #### U CI #### [address] [address] UA Source Clean Catch Normal [facility] Comment on above: Performed By: #### U CI #### [address] [address] UA Spec Grav 1.027 Normal 1.003-1.035 [facility] Comment on above: Performed By: #### U CI #### [address] [address] UA Urobilinogen Normal Normal 0.2 - 1.0 [facility] Comment on above: Performed By: #### U CI #### [address] [address] Urobilinogen (U) [Mass/Vol] Negative Normal Negative [facility] Comment on above: Performed By: #### U CI #### [address] [address] US Transvaginal w/ Duplexon 03-29-2021 US Transvaginal [...] Electronically Signed in Other Vendor System) Normal [facility] Surgical Pathologyon 020 Surgical Pathology (NOTE) -- [...] SURGICAL PATHOLOGY CONSULTATION Patient Name: RACHID MOJICA [facility] Rec: [id number] Path Number: [id number] [employer] [facility] ANATOMIC PATHOLOGY [address] [place] [address]. [place], [place] [address] Normal [facility] Comment on above: Performed By: #### P PPVS #### [employer] [address] [place] [address] [place] [address] Supply Teacher: John Yancey MD COVID-19 Ambulatoryon 2019 SARS-CoV-2, MILLICENT Not Detected Not Detected [place], [place] Comment on above: (NOTE) This test was developed and its performance characteristics determined by [employer]. This test has not been FDA cleared [...] detected) result in this assay. Performed At: [facility] [address] [facility] [place] [id number] Melly Butler MD Ph:[phone] [id number] 01-02-2020 SARS-CoV-2 Not Detected Normal Not Detected [facility] Comment on above: Result Comment: (NOT E) This test was developed and its performance characteristics determined by [employer]. This test has not been FDA cleared [...] detected) result in this assay. Performed At: [facility] [email or web address] [facility] [place] [id number] Melly Butler MD Ph:[phone] Performed By: #### C DP, CP, LIP #### [facility] [address] [place] [address] Supply Teacher: Kd Page MD Basic Metab w/rfx MGon 12-15 (cont.) Normal [facility] Comment on above: Result Comment: Aver age GFR for 30-39 years old: 107 mL/min/1.73sq m Chronic Kidney Disease: <60 mL/min/1.73sq m Kidney failure: <15 mL/min/1.73sq m eGFR calculated using average adult body mass. Additional eGFR calculator available at: http://www.[employer].GIVVER/multiple_crcl_2012.htm Performed By: #### C TAMEKA, BMPX #### [place] [address] Supply Teacher: John Yancey MD Anion gap [Moles/Vol] 13 mmol/L Normal 9-17 [facility] Comment on above: Performed By: #### C TAMEKA BMPX #### [place] [address] Supply Teacher: John Yancey MD Calcium [Mass/Vol] 8.5 mg/dL Low 8.6-10.4 [facility] Comment on above: Performed By: #### C DP, BMPX #### [address] [address] Supply Teacher: John Yancey MD Chloride [Moles/Vol] 103 mmol/L Normal 98-107 [facility] Comment on above: Performed By: #### C DP BMPX #### [facility] [employer] [address] [place] [address] Supply Teacher: John Yancey MD CO2 [Moles/Vol] 21 mmol/L Normal 20-31 [facility] Comment on above: Performed By: #### C DP, BMPX #### [facility] [employer] [address] [place] [address] Supply Teacher: John Yancey MD Creatinine [Mass/Vol] 0.55 mg/dL Normal 0.50-0.90 [facility] Comment on above: Performed By: #### C DP, BMPX #### [facility] [employer] [address] [place] [address] Supply Teacher: John Yancey MD GFR, Amer >60 Normal >60 [facility] Comment on above: Performed By: #### C DP, BMPX #### [facility] [employer] [address] [place] [address] Supply Teacher: John Yancey MD GFR,non Amer >60 Normal >60 [facility] Comment on above: Performed By: #### C DP, BMPX #### [facility] [employer] [address] [place] [address] Supply Teacher: John Yancey MD Glucose [Mass/Vol] 83 mg/dL Normal 70-99 [facility] Comment on above: Performed By: #### C DP, BMPX #### [facility] [employer] [address] [place] [address] Supply Teacher: John Yancey MD Potassium [Moles/Vol] 3.8 mmol/L Normal 3.7-5.3 [facility] Comment on above: Performed By: #### C DP, BMPX #### [facility] [employer] [address] [place] [address] Supply Teacher: John Yancey MD Sodium [Moles/Vol] 137 mmol/L Normal 135-144 [facility] Comment on above: Performed By: #### C DP, BMPX #### [facility] [address] [place] [address] Supply Teacher: John Yancey MD Urea nitrogen [Mass/Vol] 9 mg/dL Normal 6-20 [facility] Comment on above: Performed By: #### C DP, BMPX #### [facility] [employer] [address] [place] [address] Supply Teacher: John Yancey MD Staging: NOT REPORTED Normal [facility] Comment on above: Performed By: #### C DP, BMPX #### [facility] [employer] [facility] [place] [address] Supply Teacher: John Yancey MD Bun/Cre Ratio NOT REPORTED Normal 9-20 [place], [place] Comment on above: Performed By: #### C DP, BMPX #### [facility] [employer] [address] [place] [phone] Supply Teacher: John Yancey MD Basic Metabolic Panel w/ Ref devendra to [facility] 12-16-2019 Anion gap [Moles/Vol] 13 mmol/L 9 - 17 mmol/L [place] Calcium [Mass/Vol] 8.5 mg/dL Low 8.6 - 10. 4 mg/dL [place] Chloride [Moles/Vol] 103 mmol/L 98 - 10 7 mmol/L [place] CO2 [Moles/Vol] 21 mmol/L 20 - 31 mmol/L [place] Creatinine [Mass/Vol] 0.55 mg/dL 0.5 - 0.9 mg/dL [place] GFR >60 >60 mL/min [place], [place] GFR Non- >60 >60 mL/min [place] GFR/1.73 sq M predicted among non-blacks MDRD (S/P/Bld) [Vol rate/Area] [place] Comment on above: Average GFR for 30-3 9 years old: 107 mL/min/1.73sq m Chronic Kidney Disease: <60 mL/min/1.73sq m Kidney failure: <15 mL/min/1.73sq m eGFR calculated using average adult body mass. Additional eGFR calculator available at: http://www.[employer]/multiple_crcl_2012.htm GFR/1.73 sq M predicted among non-blacks MDRD (S/P/Bld) [Vol rate/Area] NOT REPORTED [place] Glucose [Mass/Vol] 83 mg/dL 70 - 99 mg/dL [place] Interpretation and review of laboratory results Abnormal [place] Potassium [Moles/Vol] 3.8 mmol/L 3.7 - 5.3 mmol/L [place] Sodium [Moles/Vol] 137 mmol/L 135 - 144 mmol/L [place] Urea nitrogen [Mass/Vol] 9 mg/dL 6 - 20 mg/dL [place] CBC auto differentialon 11-23 Basophils (Bld) [#/Vol] 0.05 10*3/uL [place] Basophils/100 WBC (Bld) 1 % 0 - 2 % [place] Differential Type NOT REPORTED [place] Eosinophils (Bld) [#/Vol] 0.26 10*3/uL [place] Eosinophils/100 WBC (Bld) 5 % High 1 - 4 % [place] Erythrocyte distribution width (RBC) [Ratio] 12.2 % 11.8 - 14.4 % [place] Hematocrit (Bld) [Volume fraction] 41.6 % 36.3 - 47.1 % [place] Hemoglobin (Bld) [Mass/Vol] 13.5 g/dL 11.9 - 15.1 g/dL [place] Immature granulocytes (Bld) [#/Vol] 0 % 0 [place] Immature granulocytes (Bld) [#/Vol] 10*3/uL [place] Interpretation and review of laboratory results Abnormal [place] Lymphocytes (Bld) [#/Vol] 2.38 10*3/uL [place] Lymphocytes/100 WBC (Bld) 41 % 24 - 43 % [place] MCH (RBC) [Entitic mass] 31.0 pg 25.2 - 33.5 pg [place] MCHC (RBC) [Mass/Vol] 32.5 g/dL 28.4 - 34.8 g/dL [place] MCV (RBC) [Entitic vol] 95.4 fL 82.6 - 102.9 fL [place] Monocytes (Bld) [#/Vol] 0.51 10*3/uL [place] Monocytes/100 WBC (Bld) 9 % 3 - 12 % [place] Platelet mean volume (Bld) [Entitic vol] 10.6 fL 8.1 - 13.5 fL [place] Platelets (Bld) [#/Vol] 154 10*3/uL [place] RBC (Bld) [#/Vol] 4.36 10*6/uL 3.95 - 5.1 1 m/uL [place] Segmented neutrophils/100 WBC (Bld) 44 % 36 - 65 % [place] Segs Absolute 2.54 [place] WBC (Bld) [#/Vol] 0.0 10*3/uL 0.0 per 10 0 WBC [place] WBC (Bld) [#/Vol] 5.8 10*3/uL [place] CBC with Diffon 12-16-2019 Abs. Basophil 0.05 k/uL Normal 0.00-0.20 [facility] Comment on above: Performed By: #### C TAMEKA BMPX #### [employer] [address] [place] [address] Supply Teacher: John Yancey MD Abs.Imm.Granulocyte <0.03 Normal 0.00-0.30 [facility] Comment on above: Performed By: #### C TAMEKA BMPX #### [address] [address] Supply Teacher: John Yancey MD Abs.Neutrophil (Seg) 2.54 k/uL Normal 1.50-8.10 [facility] Comment on above: Performed By: #### C DP, BMPX #### [address] [address] Supply Teacher: John Yancey MD Basophils/100 WBC (Bld) 1 % Normal 0-2 [facility] Comment on above: Performed By: #### C DP, BMPX #### [place] [address] Supply Teacher: John Yancey MD Eosinophils (Bld) [#/Vol] 0.26 10*3/uL Normal 0.00-0.44 [facility] Comment on above: Performed By: #### C DP, BMPX #### [place] [address] Supply Teacher: John Yancey MD Eosinophils/100 WBC (Bld) 5 % High 1-4 [facility] Comment on above: Performed By: #### C DP, BMPX #### [place] [address] Supply Teacher: John Yancey MD Erythrocyte distribution width (RBC) [Ratio] 12.2 % Normal 11.8-14.4 [facility] Comment on above: Performed By: #### C DP, BMPX #### [address] [address] Supply Teacher: John Yancey MD Hematocrit (Bld) [Volume fraction] 41.6 % Normal 36.3-47.1 [facility] Comment on above: Performed By: #### C DP, BMPX #### [place] [address] Supply Teacher: John Yancey MD Hemoglobin (Bld) [Mass/Vol] 13.5 g/dL Normal 11.9-15.1 [facility] Comment on above: Performed By: #### C DP, BMPX #### [address] [address] Supply Teacher: John Yancey MD Immature granulocytes (Bld) [#/Vol] 0 % Normal 0 [facility] Comment on above: Performed By: #### C DP, BMPX #### [address] [address] Supply Teacher: John Yancey MD Lymphocytes (Bld) [#/Vol] 2.38 10*3/uL Normal 1.10-3.70 [facility] Comment on above: Performed By: #### C DP, BMPX #### [address] [address] Supply Teacher: John Yancey MD Lymphocytes/100 WBC (Bld) 41 % Normal 24-43 [facility] Comment on above: Performed By: #### C DP, BMPX #### [address] [address] Supply Teacher: John Yancey MD MCH (RBC) [Entitic mass] 31.0 pg Normal 25.2-33.5 [facility] Comment on above: Performed By: #### C DP, BMPX #### [address] [address] Supply Teacher: John Yancey MD MCHC (RBC) [Mass/Vol] 32.5 g/dL Normal 28.4-34.8 [facility] Comment on above: Performed By: #### C DP, BMPX #### [address] [address] Supply Teacher: John Yancey MD MCV (RBC) [Entitic vol] 95.4 fL Normal 82.6-102.9 [facility] Comment on above: Performed By: #### C DP, BMPX #### [address] [address] Supply Teacher: John Yancey MD Monocytes (Bld) [#/Vol] 0.51 10*3/uL Normal 0.10-1.20 [facility] Comment on above: Performed By: #### C DP, BMPX #### [address] [address] Supply Teacher: John Yancey MD Monocytes/100 WBC (Bld) 9 % Normal 3-12 [facility] Comment on above: Performed By: #### C DP, BMPX #### [address] [address] Supply Teacher: John Yancey MD Neutrophil (Seg) 44 % Normal 36-65 [facility] Comment on above: Performed By: #### C DP, BMPX #### [address] [address] Supply Teacher: John Yancey MD NRBC Automated 0.0 per 100 WBC Normal 0.0 [facility] Comment on above: Performed By: #### C DP, BMPX #### [address] [address] Supply Teacher: John Yancey MD Platelet mean volume (Bld) [Entitic vol] 10.6 fL Normal 8.1-13.5 [facility] Comment on above: Performed By: #### C DP, BMPX #### [address] [address] Supply Teacher: John Yancey MD Platelets (Bld) [#/Vol] 154 10*3/uL Normal 138-453 [facility] Comment on above: Performed By: #### C DP, BMPX #### [facility] [address] [place] [address] Supply Teacher: John Yancey MD RBC (Bld) [#/Vol] 4.36 10*6/uL Normal 3.95-5.11 [facility] Comment on above: Performed By: #### C DP, BMPX #### [facility] [address] [place] [address] Supply Teacher: John Yancey MD WBC (Bld) [#/Vol] 5.8 10*3/uL Normal 3.5-11.3 [facility] Comment on above: Performed By: #### C DP, BMPX #### [facility] [address] [place] [address] Supply Teacher: John Yancey MD Auto Diff Performed NOT REPORTED Normal [facility] Comment on above: Performed By: #### C DP, BMPX #### [facility] [address] [place] [address] Supply Teacher: John Yancey MD Platelets (Bld) [#/Vol] NOT REPORTED Normal [facility], [place] Comment on above: Performed By: #### C DP, BMPX #### [facility] [address] [place] [address] Supply Teacher: John Yancey MD RBC morphology finding Nom (Bld) NOT REPORTED Normal [facility] [place], [place] Comment on above: Performed By: #### C DP, BMPX #### [facility] [address] [place] [address] Supply Teacher: John Yancey MD WBC Morphology NOT REPORTED Normal [facility] [place], [place] Comment on above: Performed By: #### C DP, BMPX #### [facility] [address] [place] [address] Supply Teacher: John Yancey MD COVID-19on 12-16-2019 SARS-CoV-2 Not Detected Not Detected [place], [place] Comment on above: The specimen is NEGATIVE for SARS-CoV-2, the novel coronavirus associated with COVID-19. A negative result does not rule out COVID-19. This test has been authorized by the FDA under an Emergency Use Authorization (EUA) for use by authorized laboratories. Fact sheet for Healthcare Providers: https://www.fda.gov/media/713069/download Fact sheet for Patients: https://www.fda.gov/media/278660/download METHODOLOGY: RT-PCR SARS-CoV-2, PCR [facility], [place] SARS-CoV-2, Rapid [place], [place] Source .NASOPHARYNGEAL SWAB [place], [place] [id number] 12-16-2019 SARS-CoV-2 Normal [facility] Comment on above: Performed By: #### C OVID #### [address] [id number] Supply Teacher: John Yancey MD SARS-CoV-2,Rapid [facility] Comment on above: Performed By: #### C OVID #### [address] [phone] Supply Teacher: John Yancey MD SARS-CoV-2 Not Detected Normal NOTDET [facility] Comment on above: Result Comment: The specimen is NEGATIVE for SARS-CoV-2, the novel coronavirus associated with COVID-19. A negative result does not rule out COVID-19. This test has been authorized by the FDA under an Emergency Use Authorization (EUA) for use by authorized laboratories. Fact sheet for Healthcare Providers: https://www.fda.gov/media/375605/download Fact sheet for Patients: https://www.fda.gov/media/911554/download METHODOLOGY: RT-PCR Performed By: #### C OVID #### [address] [id number] Supply Teacher: John Yancey MD XR ABDOMEN (KUB) (SINGLE [...] DO 12/16/19 Final result Normal [facility] EXAMINATION: ONE SUPINE XRAY VIEW(S) OF [...] region. Osseous structures demonstrate no acute findings. [place] No acute intra-abdominal process. Oral contrast is seen throughout the colon. [place], [place], Mhpn Incoming Radiant Results From [facility] - 12/16/2019 7:26 AM EDT EXAMINATION: ONE [...] Oral contrast is seen throughout the colon. [place] CBC WITH AUTO DIFFERENTIALon 12-15-2019 Basophils (Bld) [#/Vol] 0.06 10*3/uL [place] Basophils/100 WBC (Bld) 1 % 0 - 2 % [place] Differential Type NOT REPORTED [place] Eosinophils (Bld) [#/Vol] 0.24 10*3/uL [place] Eosinophils/100 WBC (Bld) 4 % 1 - 4 % [place] Erythrocyte distribution width (RBC) [Ratio] 12.5 % 11.8 - 14.4 % [place] Hematocrit (Bld) [Volume fraction] 45.7 % 36.3 - 47.1 % [place] Hemoglobin (Bld) [Mass/Vol] 14.5 g/dL 11.9 - 15.1 g/dL [place] Immature granulocytes (Bld) [#/Vol] 0 % 0 [place] Immature granulocytes (Bld) [#/Vol] 10*3/uL [place] Lymphocytes (Bld) [#/Vol] 2.47 10*3/uL [place] Lymphocytes/100 WBC (Bld) 37 % 24 - 43 % [place] MCH (RBC) [Entitic mass] 30.4 pg 25.2 - 33.5 pg [place] MCHC (RBC) [Mass/Vol] 31.7 g/dL 28.4 - 34.8 g/dL [place] MCV (RBC) [Entitic vol] 95.8 fL 82.6 - 102.9 fL [place] Monocytes (Bld) [#/Vol] 0.52 10*3/uL [place] Monocytes/100 WBC (Bld) 8 % 3 - 12 % [place] Platelet mean volume (Bld) [Entitic vol] 10.8 fL 8.1 - 13.5 fL [place] Platelets (Bld) [#/Vol] NOT REPORTED [place] Platelets (Bld) [#/Vol] 176 10*3/uL [place] RBC (Bld) [#/Vol] 4.77 10*6/uL 3.95 - 5.1 1 m/uL [place] RBC morphology finding Nom (Bld) NOT REPORTED [place] Segmented neutrophils/100 WBC (Bld) 50 % 36 - 65 % [place] Segs Absolute 3.38 [place] WBC (Bld) [#/Vol] 0.0 10*3/uL 0.0 per 10 0 WBC [place] WBC (Bld) [#/Vol] 6.7 10*3/uL [place] WBC Morphology NOT REPORTED [place], [place] CBC with Diffon 12-15-2019 Abs. Basophil 0.06 k/uL Normal 0.00-0.20 [facility] Comment on above: Performed By: #### C DP, CP, LIP #### [place] [address] Supply Teacher: John Yancey MD Abs.Imm.Granulocyte <0.03 Normal 0.00-0.30 [facility] Comment on above: Performed By: #### C DP, CP, LIP #### [place] [address] Supply Teacher: John Yancey MD Abs.Neutrophil (Seg) 3.38 k/uL Normal 1.50-8.10 [facility] Comment on above: Performed By: #### C DP, CP, LIP #### [place] [address] Supply Teacher: John Yancey MD Basophils/100 WBC (Bld) 1 % Normal 0-2 [facility] Comment on above: Performed By: #### C DP, CP, LIP #### [address] [address] Supply Teacher: John Yancey MD Eosinophils (Bld) [#/Vol] 0.24 10*3/uL Normal 0.00-0.44 [facility] Comment on above: Performed By: #### C DP, CP, LIP #### [address] [address] Supply Teacher: John Yancey MD Eosinophils/100 WBC (Bld) 4 % Normal 1-4 [facility] Comment on above: Performed By: #### C DP, CP, LIP #### [address] [address] Supply Teacher: John Yancey MD Erythrocyte distribution width (RBC) [Ratio] 12.5 % Normal 11.8-14.4 [facility] Comment on above: Performed By: #### C DP, CP, LIP #### [place] [address] Supply Teacher: John Yancey MD Hematocrit (Bld) [Volume fraction] 45.7 % Normal 36.3-47.1 [facility] Comment on above: Performed By: #### C DP, CP, LIP #### [place] [address] Supply Teacher: John Yancey MD Hemoglobin (Bld) [Mass/Vol] 14.5 g/dL Normal 11.9-15.1 [facility] Comment on above: Performed By: #### C DP, CP, LIP #### [facility] [employer] [address] [place] [address] Supply Teacher: John Yancey MD Immature granulocytes (Bld) [#/Vol] 0 % Normal 0 [facility] Comment on above: Performed By: #### C DP, CP, LIP #### [address] [address] Supply Teacher: John Yancey MD Lymphocytes (Bld) [#/Vol] 2.47 10*3/uL Normal 1.10-3.70 [facility] Comment on above: Performed By: #### C DP, CP, LIP #### [address] [address] Supply Teacher: John Yancey MD Lymphocytes/100 WBC (Bld) 37 % Normal 24-43 [facility] Comment on above: Performed By: #### C DP, CP, LIP #### [place] [address] Supply Teacher: John Yancey MD MCH (RBC) [Entitic mass] 30.4 pg Normal 25.2-33.5 [facility] Comment on above: Performed By: #### C DP, CP, LIP #### [place] [address] Supply Teacher: John Yancey MD MCHC (RBC) [Mass/Vol] 31.7 g/dL Normal 28.4-34.8 [facility] Comment on above: Performed By: #### C DP, CP, LIP #### [address] [address] Supply Teacher: John Yancey MD MCV (RBC) [Entitic vol] 95.8 fL Normal 82.6-102.9 [facility] Comment on above: Performed By: #### C DP, CP, LIP #### [place] [address] Supply Teacher: John Yancey MD Monocytes (Bld) [#/Vol] 0.52 10*3/uL Normal 0.10-1.20 [facility] Comment on above: Performed By: #### C DP, CP, LIP #### [address] [address] Supply Teacher: John Yancey MD Monocytes/100 WBC (Bld) 8 % Normal 3-12 [facility] Comment on above: Performed By: #### C DP, CP, LIP #### [address] [address] Supply Teacher: John Yancey MD Neutrophil (Seg) 50 % Normal 36-65 [facility] Comment on above: Performed By: #### C DP, CP, LIP #### [address] [address] Supply Teacher: John Yancey MD NRBC Automated 0.0 per 100 WBC Normal 0.0 [facility] Comment on above: Performed By: #### C DP, CP, LIP #### [address] [address] Supply Teacher: John Yancey MD Platelet mean volume (Bld) [Entitic vol] 10.8 fL Normal 8.1-13.5 [facility] Comment on above: Performed By: #### C DP, CP, LIP #### [address] [address] Supply Teacher: John Yancey MD Platelets (Bld) [#/Vol] 176 10*3/uL Normal 138-453 [facility] Comment on above: Performed By: #### C DP, CP, LIP #### [address] [address] Supply Teacher: John Yancey MD RBC (Bld) [#/Vol] 4.77 10*6/uL Normal 3.95-5.11 [facility] Comment on above: Performed By: #### C DP, CP, LIP #### [address] [address] Supply Teacher: John Yancey MD WBC (Bld) [#/Vol] 6.7 10*3/uL Normal 3.5-11.3 [facility] Comment on above: Performed By: #### C DP, CP, LIP #### [facility] [address] [place] [address] Supply Teacher: John Yancey MD Auto Diff Performed NOT REPORTED Normal [facility] Comment on above: Performed By: #### C DP, CP, LIP #### [facility] [address] [place] [address] Supply Teacher: John Yancey MD Platelets (Bld) [#/Vol] NOT REPORTED Normal [facility] Comment on above: Performed By: #### C DP, CP, LIP #### [address] [address] Supply Teacher: John Yancey MD RBC morphology finding Nom (Bld) NOT REPORTED Normal [facility] Comment on above: Performed By: #### C DP, CP, LIP #### [address] [address] Supply Teacher: John Yancey MD WBC Morphology NOT REPORTED Normal [facility] Comment on above: Performed By: #### C DP, CP, LIP #### [address] [address] Supply Teacher: John Yancey MD CT ABDOMEN PELVIS W [...] MD 12/15/19 Final result Normal [facility] CT ABDOMEN PELVIS W IV CONTR [...] Bones/Soft Tissues: No acute osseous abnormality identified. [place], [place] Long segment small bowel jejunal intussusception near the anastomosis. Fecalization in this area is noted consistent with stasis and there is mild upstream small bowel distension. [place], M[facility]pn Incoming Radiant Results From [facility] - 12/15/2019 6:56 PM EDT EXAMINATION: CT [...] there is mild upstream small bowel distension. [facility] Metabolic Profon 2019 (cont.) Normal [facility] Comment on above: Result Comment: Aver age GFR for 30-39 years old: 107 mL/min/1.73sq m Chronic Kidney Disease: <60 mL/min/1.73sq m Kidney failure: <15 mL/min/1.73sq m eGFR calculated using average adult body mass. Additional eGFR calculator available at: http://www.[employer].GIVVER/multiple_crcl_2012.htm Performed By: #### C JP ENGLISH, LIP #### [facility] [employer] [address] [place] [address] Supply Teacher: John Yancey MD Albumin [Mass/Vol] 4.0 g/dL Normal 3.5-5.2 [facility] Comment on above: Performed By: #### C JP ENGLISH, LIP #### [employer] [address] [place] [address] Supply Teacher: John Yancey MD Albumin/Globulin [Mass ratio] 1.6 {ratio} Normal 1.0-2.5 [facility] Comment on above: Performed By: #### C JP ENGLISH, LIP #### [employer] [address] [place] [address] Supply Teacher: John Yancey MD Alkaline Phos 66 U/L Normal 35-104 [facility] Comment on above: Performed By: #### C DP, CP, LIP #### [address] [address] Supply Teacher: John Yancey MD ALT [Catalytic activity/Vol] 23 U/L Normal 5-33 [facility] Comment on above: Performed By: #### C DP, CP, LIP #### [address] [address] Supply Teacher: John Yancey MD Anion gap [Moles/Vol] 8 mmol/L Low 9-17 [facility] Comment on above: Performed By: #### C DP, CP, LIP #### [address] [address] Supply Teacher: John Yancey MD AST [Catalytic activity/Vol] 23 U/L Normal <32 [facility] Comment on above: Performed By: #### C DP, CP, LIP #### [address] [address] Supply Teacher: John Yancey MD Bilirubin Ql (U) 0.19 mg/dL Low 0.3-1.2 [facility] Comment on above: Performed By: #### C DP, CP, LIP #### [address] [address] Supply Teacher: John Yancey MD Calcium [Mass/Vol] 9.1 mg/dL Normal 8.6-10.4 [facility] Comment on above: Performed By: #### C DP, CP, LIP #### [facility] [employer] [address] [place] [address] Supply Teacher: John Yancey MD Chloride [Moles/Vol] 107 mmol/L Normal 98-107 [facility] Comment on above: Performed By: #### C DP, CP, LIP #### [facility] [address] [place] [address] Supply Teacher: John Yancey MD CO2 [Moles/Vol] 25 mmol/L Normal 20-31 [facility] Comment on above: Performed By: #### C DP, CP, LIP #### [facility] [address] [place] [address] Supply Teacher: John Yancey MD Creatinine [Mass/Vol] 0.59 mg/dL Normal 0.50-0.90 [facility] Comment on above: Performed By: #### C DP, CP, LIP #### [address] [address] Supply Teacher: John Yancey MD GFR, Amer >60 Normal >60 [facility] Comment on above: Performed By: #### C DP, CP, LIP #### [facility] [address] [place] [address] Supply Teacher: John Yancey MD GFR,non Amer >60 Normal >60 [facility] Comment on above: Performed By: #### C DP, CP, LIP #### [facility] [address] [place] [address] Supply Teacher: John Yancey MD Glucose [Mass/Vol] 81 mg/dL Normal 70-99 [facility] Comment on above: Performed By: #### C DP, CP, LIP #### [facility] [address] [place] [address] Supply Teacher: John Yancey MD Potassium [Moles/Vol] 4.6 mmol/L Normal 3.7-5.3 [facility] Comment on above: Performed By: #### C DP, CP, LIP #### [facility] [employer] [address] [place] [address] Supply Teacher: John Yancey MD Protein [Mass/Vol] 6.5 g/dL Normal 6.4-8.3 [facility] Comment on above: Performed By: #### C DP, CP, LIP #### [facility] [address] [place] [address] Supply Teacher: John Yancey MD Sodium [Moles/Vol] 140 mmol/L Normal 135-144 [facility] Comment on above: Performed By: #### C DP, CP, LIP #### [facility] [address] [place] [address] Supply Teacher: John Yancey MD Urea nitrogen [Mass/Vol] 9 mg/dL Normal 6-20 [facility] Comment on above: Performed By: #### C DP, CP, LIP #### [facility] [employer] [address] [place] [address] Supply Teacher: John Yancey MD BUN/CRE Ratio NOT REPORTED Normal - [facility] Comment on above: Performed By: #### C DP, CP, LIP #### [facility] [employer] [address] [place] [address] Supply Teacher: John Yancey MD Staging: NOT REPORTED Normal [facility] Comment on above: Performed By: #### C DP, CP, LIP #### [facility] [employer] [address] [place] [address] Supply Teacher: John Yancey MD Comprehensive Metabolic Pane [facility] 12-15-2019 Albumin [Mass/Vol] 4 g/dL 3.5 - 5.2 g/dL [place] Albumin/Globulin [Mass ratio] 1.6 {ratio} [place] ALP [Catalytic activity/Vol] 66 U/L 35 - 104 U/L [place] ALT [Catalytic activity/Vol] 23 U/L 5 - 33 U/L [place] Anion gap [Moles/Vol] 8 mmol/L Low 9 - 17 mmol/L [place] AST [Catalytic activity/Vol] 23 U/L <32 [place] Bilirubin Ql (U) 0.19 mg/dL Low 0.3 - 1.2 mg/dL [place] Bun/Cre Ratio NOT REPORTED [place] Calcium [Mass/Vol] 9.1 mg/dL 8.6 - 10. 4 mg/dL [place] Chloride [Moles/Vol] 107 mmol/L 98 - 10 7 mmol/L [place] CO2 [Moles/Vol] 25 mmol/L 20 - 31 mmol/L [place] Creatinine [Mass/Vol] 0.59 mg/dL 0.5 - 0.9 mg/dL [place] GFR >60 >60 mL/min [place] GFR Non- >60 >60 mL/min [place] GFR/1.73 sq M predicted among non-blacks MDRD (S/P/Bld) [Vol rate/Area] [place] Comment on above: Average GFR for 30-3 9 years old: 107 mL/min/1.73sq m Chronic Kidney Disease: <60 mL/min/1.73sq m Kidney failure: <15 mL/min/1.73sq m eGFR calculated using average adult body mass. Additional eGFR calculator available at: http://www.[employer]/multiple_crcl_2012.htm GFR/1.73 sq M predicted among non-blacks MDRD (S/P/Bld) [Vol rate/Area] NOT REPORTED [place] Glucose [Mass/Vol] 81 mg/dL 70 - 99 mg/dL [place] Interpretation and review of laboratory results Abnormal [place] Potassium [Moles/Vol] 4.6 mmol/L 3.7 - 5.3 mmol/L [place] Protein [Mass/Vol] 6.5 g/dL 6.4 - 8.3 g/dL [place] Sodium [Moles/Vol] 140 mmol/L 135 - 144 mmol/L [place] Urea nitrogen [Mass/Vol] 9 mg/dL 6 - 20 mg/dL [facility] [place] LIPASEon 12-15-2019 Lipase [Catalytic activity/Vol] 20 U/L 13 - 60 U/L [place] Lipaseon 12-15-2019 Lipase [Catalytic activity/Vol] 20 U/L Normal 13-60 [facility] Comment on above: Performed By: #### C JP ENGLISH, LIP #### [facility] [address] [place], [place] [phone] Supply Teacher: John Yancey MD [id number] 12-15-2019 SARS-CoV-2 Source .NASOPHARYNGEAL SWAB Normal [facility] Comment on above: Performed By: #### C OVID #### [facility] [address] [place], [place] [phone] Supply Teacher: John Yancey MD Topamaxon 07-31-2019 TOPA 2.7 ug/mL Low 5.0-20.0 [facility] Comment on above: Result Comment: (NOT E) INTERPRETIVE INFORMATION: Topiramate Therapeutic range: 5.0-20.0 ug/mL Toxic: Not well established Pharmacokinetics varies widely, particularly with co-medications, age, and/or compromised renal function. Adverse effects may include somnolence, fatigue, and dizziness. Performed by [employer], [address] [place] [id number] www.[employer], Nando Parrish MD, Lab. Director Performed By: #### C JP ENGLISH, LIP #### [facility] [address] [place] [address] Supply Teacher: Kd Page MD CBC Auto DifferentialOrdered By: Tobias Hogan on 07-29-2019 Absolute Eos # 0.21 [facility] Work Phone: Absolute Immature Granulocyte <0.03 [facility] Work Phone: Absolute Lymph # 2.30 [facility] Work Phone: Absolute [place] # 0.62 [facility] Work Phone: Basophils (Bld) [#/Vol] 0.06 10*3/uL [employer] Work Phone: Basophils/100 WBC (Bld) 1 % 0 - 2 % M [employer] Work Phone: Differential Type NOT REPORTED [employer] Phone: Eosinophils/100 WBC (Bld) 3 % 1 - 4 % [employer] Work Phone: Erythrocyte distribution width (RBC) [Ratio] 12.8 % 11.8 - 14.4 % [employer] Phone: Hematocrit (Bld) [Volume fraction] 38.4 % 36.3 - 47.1 % [employer] Phone: Hemoglobin (Bld) [Mass/Vol] 12.3 g/dL 11.9 - 15.1 g/dL [employer] Phone: Immature granulocytes/100 WBC (Bld) 0 % 0 [employer] Work Phone: Lymphocytes/100 WBC (Bld) 29 % 24 - 43 % [employer] Phone: MCH (RBC) [Entitic mass] 30.4 pg 25.2 - 33.5 pg [employer] Phone: MCHC (RBC) [Mass/Vol] 32.0 g/dL 28.4 - 34.8 g/dL [employer] Phone: MCV (RBC) [Entitic vol] 94.8 fL 82.6 - 102.9 fL [employer] Phone: Monocytes/100 WBC (Bld) 8 % 3 - 12 % M [employer] Work Phone: NRBC Automated 0.0 0.0 per 100 WBC [employer] Phone: Platelet Estimate NOT REPORTED [employer] Phone: Platelet mean volume (Bld) [Entitic vol] 11.0 fL 8.1 - 13.5 fL [facility] [employer] Work Phone: Platelets (Bld) [#/Vol] 220 10*3/uL [facility] Work Phone: RBC (Bld) [#/Vol] 4.05 10*6/uL 3.95 - 5.1 1 m/uL [facility] [employer] Work Phone: RBC morphology finding Nom (Bld) NOT REPORTED [facility] [employer] Work Phone: Segmented neutrophils/100 WBC (Bld) 59 % 36 - 65 % [facility] Work Phone: Segs Absolute 4.79 [facility] Work Phone: WBC (Bld) [#/Vol] 8.0 10*3/uL [facility] [employer] Work Phone: WBC Morphology NOT REPORTED [facility] Work Phone: CBC with Diffon 07-29-2019 Abs. Basophil 0.06 k/uL Normal 0.00-0.20 [facility] Comment on above: Performed By: #### C DP, HCG, CMPX #### [address] [place] [address] Supply Teacher: Kd Page MD Abs.Imm.Granulocyte <0.03 Normal 0.00-0.30 [facility] Comment on above: Performed By: #### C DP, HCG, CMPX #### [facility] [address] [place] [address] Supply Teacher: Kd Page MD Abs.Neutrophil (Seg) 4.79 k/uL Normal 1.50-8.10 [facility] Comment on above: Performed By: #### C DP, HCG, CMPX #### [facility] [address] [place] [address] Supply Teacher: Kd Page MD Basophils/100 WBC (Bld) 1 % Normal 0-2 M [facility] Comment on above: Performed By: #### C DP, HCG, CMPX #### [facility] [address] [place], [place] [phone] Supply Teacher: Kd Page MD Eosinophils (Bld) [#/Vol] 0.21 10*3/uL Normal 0.00-0.44 [facility] Comment on above: Performed By: #### C DP, HCG, CMPX #### [facility] [address] [place], [facility]83 Supply Teacher: Kd Page MD Eosinophils/100 WBC (Bld) 3 % Normal 1-4 [facility] Comment on above: Performed By: #### C DP, HCG, CMPX #### [address] [place] [phone] Supply Teacher: Kd Page MD Erythrocyte distribution width (RBC) [Ratio] 12.8 % Normal 11.8-14.4 [facility] Comment on above: Performed By: #### C DP, HCG, CMPX #### [address] [place], [facility]83 Supply Teacher: Kd Page MD Hematocrit (Bld) [Volume fraction] 38.4 % Normal 36.3-47.1 [facility] Comment on above: Performed By: #### C DP, HCG, CMPX #### [address] [place], [facility]83 Supply Teacher: Kd Page MD Hemoglobin (Bld) [Mass/Vol] 12.3 g/dL Normal 11.9-15.1 [facility] Comment on above: Performed By: #### C DP, HCG, CMPX #### [address] [place], [place] [phone] Supply Teacher: Kd Page MD Immature granulocytes (Bld) [#/Vol] 0 % Normal 0 [facility] Comment on above: Performed By: #### C DP, HCG, CMPX #### [facility] [address] [place], [place] [address] Supply Teacher: Kd Page MD Lymphocytes (Bld) [#/Vol] 2.30 10*3/uL Normal 1.10-3.70 [facility] Comment on above: Performed By: #### C DP, HCG, CMPX #### [facility] [address] [place] [phone] Supply Teacher: Kd Page MD Lymphocytes/100 WBC (Bld) 29 % Normal 24-43 [facility] Comment on above: Performed By: #### C DP, HCG, CMPX #### [facility] [address] [place] [phone] Supply Teacher: Kd Pgae MD MCH (RBC) [Entitic mass] 30.4 pg Normal 25.2-33.5 [facility] Comment on above: Performed By: #### C DP, HCG, CMPX #### [facility] [address] [place] [phone] Supply Teacher: Kd Page MD MCHC (RBC) [Mass/Vol] 32.0 g/dL Normal 28.4-34.8 [facility] Comment on above: Performed By: #### C DP, HCG, CMPX #### [facility] [address] [place], [facility]83 Supply Teacher: Kd Page MD MCV (RBC) [Entitic vol] 94.8 fL Normal 82.6-102.9 M [facility] Comment on above: Performed By: #### C DP, HCG, CMPX #### [facility] [address] [place] [address] Supply Teacher: Kd Page MD Monocytes (Bld) [#/Vol] 0.62 10*3/uL Normal 0.10-1.20 [facility] Comment on above: Performed By: #### C DP, HCG, CMPX #### [facility] [address] [place], [place] [address] Supply Teacher: Kd Page MD Monocytes/100 WBC (Bld) 8 % Normal 3-12 M [facility] Comment on above: Performed By: #### C DP, HCG, CMPX #### [facility] [address] [place], [place] [address] Supply Teacher: Kd Page MD Neutrophil (Seg) 59 % Normal 36-65 [facility] Comment on above: Performed By: #### C DP, HCG, CMPX #### [facility] [address] [place], [facility]83 Supply Teacher: Kd Page MD NRBC Automated 0.0 per 100 WBC Normal 0.0 [facility] Comment on above: Performed By: #### C DP, HCG, CMPX #### [facility] [address] [place], [facility]83 Supply Teacher: Kd Page MD Platelet mean volume (Bld) [Entitic vol] 11.0 fL Normal 8.1-13.5 [facility] Comment on above: Performed By: #### C DP, HCG, CMPX #### [facility] [address] [place], [place] [address] Supply Teacher: Kd Page MD Platelets (Bld) [#/Vol] 220 10*3/uL Normal 138-453 [facility] Comment on above: Performed By: #### C DP, HCG, CMPX #### [facility] [address] [place], [facility]83 Supply Teacher: Kd Page MD RBC (Bld) [#/Vol] 4.05 10*6/uL Normal 3.95-5.11 [facility] Comment on above: Performed By: #### C DP, HCG, CMPX #### [facility] [address] [place] [address] Supply Teacher: Kd Page MD WBC (Bld) [#/Vol] 8.0 10*3/uL Normal 3.5-11.3 [facility] Comment on above: Performed By: #### C DP, HCG, CMPX #### [facility] [address] [place] [address] Supply Teacher: Kd Page MD Auto Diff Performed NOT REPORTED Normal [facility] Comment on above: Performed By: #### C DP, HCG, CMPX #### [facility] [address] [place] [address] Supply Teacher: Kd Page MD Platelets (Bld) [#/Vol] NOT REPORTED Normal [facility] Comment on above: Performed By: #### C DP, HCG, CMPX #### [facility] [address] [place] [address] Supply Teacher: Kd Page MD RBC morphology finding Nom (Bld) NOT REPORTED Normal [facility] Comment on above: Performed By: #### C DP, HCG, CMPX #### [facility] [address] [place] [address] Supply Teacher: Kd Page MD WBC Morphology NOT REPORTED Normal [place] [facility] Comment on above: Performed By: #### C DP, HCG, CMPX #### [facility] [address] [place], [place] [id number] Supply Teacher: Kd Page MD Comp Metabolic Pr/rfx MGon 0 07-29-2019 (cont.) Normal [facility] Comment on above: Result Comment: Aver age GFR for 30-39 years old: 107 mL/min/1.73sq m Chronic Kidney Disease: <60 mL/min/1.73sq m Kidney failure: <15 mL/min/1.73sq m eGFR calculated using average adult body mass. Additional eGFR calculator available at: http://www.[employer]/multiple_crcl_2012.htm Performed By: #### C DP, HCG, CMPX #### [facility] [address] [place] [address] Supply Teacher: Kd Page MD Albumin [Mass/Vol] 3.6 g/dL Normal 3.5-5.2 [facility] Comment on above: Performed By: #### C DP, HCG, CMPX #### [facility] [address] [place], [place] [id number] Supply Teacher: Kd Page MD Albumin/Globulin [Mass ratio] 1.1 {ratio} Normal 1.0-2.5 [facility] Comment on above: Performed By: #### C DP, HCG, CMPX #### [facility] [address] [place] [address] Supply Teacher: Kd Page MD Alkaline Phos 48 U/L Normal 35-104 [facility] Comment on above: Performed By: #### C DP, HCG, CMPX #### [facility] [address] [place], [place] [address] Supply Teacher: Kd Page MD ALT [Catalytic activity/Vol] U/L Low 5-33 [facility] Comment on above: Performed By: #### C DP, HCG, CMPX #### [facility] [address] [place], [place] [id number] Supply Teacher: Kd Page MD Anion gap [Moles/Vol] 11 mmol/L Normal 9-17 [facility] Comment on above: Performed By: #### C DP, HCG, CMPX #### [facility] [address] [place] [address] Supply Teacher: Kd Page MD AST [Catalytic activity/Vol] 20 U/L Normal <32 [facility] Comment on above: Performed By: #### C DP, HCG, CMPX #### [facility] [address] [place], [place] [id number] Supply Teacher: Kd Page MD Bilirubin Ql (U) 0.28 mg/dL Low 0.3-1.2 [facility] Comment on above: Performed By: #### C DP, HCG, CMPX #### [facility] [address] [place], [place] [address] Supply Teacher: Kd Page MD BUN/CRE Ratio 10 Normal 9-20 [facility] Comment on above: Performed By: #### C DP, HCG, CMPX #### [facility] [address] [place], [place] [phone] Supply Teacher: Kd Page MD Calcium [Mass/Vol] 9.0 mg/dL Normal 8.6-10.4 [facility] Comment on above: Performed By: #### C DP, HCG, CMPX #### [facility] [address] [place], [place] [id number] Supply Teacher: Kd Page MD Chloride [Moles/Vol] 103 mmol/L Normal 98-107 [facility] Comment on above: Performed By: #### C DP, HCG, CMPX #### [facility] [address] [place], [place] [id number] Supply Teacher: Kd Page MD CO2 [Moles/Vol] 24 mmol/L Normal 20-31 [facility] Comment on above: Performed By: #### C DP, HCG, CMPX #### [facility] [address] [place], [place] [id number] Supply Teacher: Kd Page MD Creatinine [Mass/Vol] 0.59 mg/dL Normal 0.50-0.90 [facility] Comment on above: Performed By: #### C DP, HCG, CMPX #### [facility] [address] [place] [address] Supply Teacher: Kd Page MD GFR, Amer >60 Normal >60 [facility] Comment on above: Performed By: #### C DP, HCG, CMPX #### [facility] [address] [place], [place] [id number] Supply Teacher: Kd Page MD GFR,non Amer >60 Normal >60 [facility] Comment on above: Performed By: #### C DP, HCG, CMPX #### [facility] [address] [place], [place] [id number] Supply Teacher: Kd Page MD Glucose [Mass/Vol] 85 mg/dL Normal 70-99 [facility] Comment on above: Performed By: #### C DP, HCG, CMPX #### [facility] [address] [place], [place] [address]83 Supply Teacher: Kd Page MD Potassium [Moles/Vol] 4.1 mmol/L Normal 3.7-5.3 [facility] Comment on above: Performed By: #### C DP, HCG, CMPX #### [facility] [address] [place], [place] 2644[address] Supply Teacher: Kd Page MD Protein [Mass/Vol] 6.8 g/dL Normal 6.4-8.3 [facility] Comment on above: Performed By: #### C DP, HCG, CMPX #### [facility] [address] [place], [place] [id number] Supply Teacher: Kd Page MD Sodium [Moles/Vol] 138 mmol/L Normal 135-144 [facility] Comment on above: Performed By: #### C DP, HCG, CMPX #### [facility] [address] [place] [address] Supply Teacher: Kd Page MD Staging: Normal [facility] Comment on above: Result Comment: Stag e 1: Some kidney damage normal GFR Stage 2: Mild kidney damage GFR 60-89 Stage 3: Moderate kidney damage GFR 30-59 Stage 4: Severe kidney damage GFR 15-29 Stage 5: Severe kidney damage GFR <15 ESRD - chronic treatment by dialysis or transplant Performed By: #### C DP, HCG, CMPX #### [facility] [address] [place] [address] Supply Teacher: Kd Page MD Urea nitrogen [Mass/Vol] 6 mg/dL Normal 6-20 [facility] Comment on above: Performed By: #### C DP, HCG, CMPX #### [facility] [address] [place] [address] Supply Teacher: Kd Page MD Comprehensive Metabolic Pane l w/ Reflex to MGOrdered By: Tobias Hogan on 07-29-2019 Albumin [Mass/Vol] 3.6 g/dL 3.5 - 5.2 g/dL [employer] Phone: Albumin/Globulin [Mass ratio] 1.1 {ratio} [facility] Work Phone: ALP [Catalytic activity/Vol] 48 U/L 35 - 104 U/L [employer] Phone: ALT [Catalytic activity/Vol] U/L Low 5 - 33 U/L [facility] [employer] Phone: Anion gap [Moles/Vol] 11 mmol/L 9 - 17 mmol/L [facility] Phone: AST [Catalytic activity/Vol] 20 U/L <32 [facility] Phone: Bilirubin [Mass/Vol] 0.28 mg/dL Low 0.3 - 1 .2 mg/dL [employer] Phone: Bun/Cre Ratio 10 [facility] Work Phone: Calcium [Mass/Vol] 9.0 mg/dL 8.6 - 10. 4 mg/dL [facility] Phone: Chloride [Moles/Vol] 103 mmol/L 98 - 10 7 mmol/L [employer] Phone: CO2 [Moles/Vol] 24 mmol/L 20 - 31 mmol/L [employer] Phone: Creatinine [Mass/Vol] 0.59 mg/dL 0.5 - 0.9 mg/dL [employer] Phone: GFR >60 >60 mL/min [employer] [facility] Phone: GFR Comment [employer] Phone: Comment on above: Average GFR for 30-3 9 years old: 107 mL/min/1.73sq m Chronic Kidney Disease: <60 mL/min/1.73sq m Kidney failure: <15 mL/min/1.73sq m eGFR calculated using average adult body mass. Additional eGFR calculator available at: http://www.[employer]/multiple_crcl_2012.htm GFR Non- >60 >60 mL/min [employer] Phone: GFR Staging [employer] Phone: Comment on above: Stage 1: Some kidney damage normal GFR Stage 2: Mild kidney damage GFR 60-89 Stage 3: Moderate kidney damage GFR 30-59 Stage 4: Severe kidney damage GFR 15-29 Stage 5: Severe kidney damage GFR <15 ESRD - chronic treatment by dialysis or transplant Glucose [Mass/Vol] 85 mg/dL 70 - 99 mg/dL [employer] Phone: Interpretation and review of laboratory results Abnormal [employer] Phone: Potassium [Moles/Vol] 4.1 mmol/L 3.7 - 5.3 mmol/L [employer] Phone: Protein [Mass/Vol] 6.8 g/dL 6.4 - 8.3 g/dL [employer] Phone: Sodium [Moles/Vol] 138 mmol/L 135 - 144 mmol/L [employer] Phone: Urea nitrogen [Mass/Vol] 6 mg/dL 6 - 20 mg/dL [employer] Phone: HCG Qualitative, SerumOrdere d By: Tobias Hogan on 07-29-2019 hCG Qual Negative NEGATIVE [employer] Phone: Comment on above: Specimens with hCG l evels near the threshold of the test (25 mIU/mL) may give a negative or indeterminate result. In such cases, another test should be performed with a new specimen in 48-72 hours. If early is suspected clinically in this setting, correlation with quantitative serum b-hCG level is suggested. [employer] has confirmed the use of plasma for this test. This has not been cleared or approved by the U.S. Food and Drug Administration. The FDA has determined that such clearance is not necessary. HCG Screen, Bloodon 07-29-19 20 HCG Qn Negative Normal NEG [facility] Comment on above: Result Comment: Spec imens with hCG levels near the threshold of the test (25 mIU/mL) may give a negative or indeterminate result. In such cases, another test should be performed with a new specimen in 48-72 hours. If early is suspected clinically in this setting, correlation with quantitative serum b-hCG level is suggested. [employer] has confirmed the use of plasma for this test. This has not been cleared or approved by the U.S. Food and Drug Administration. The FDA has determined that such clearance is not necessary. Performed By: #### C DP, HCG, CMPX #### [facility] [address] [place] [address] Supply Teacher: Kd Page MD Keppraon 07-29-2019 KEPP 13 ug/mL Normal [facility] Comment on above: Result Comment: A [...] #### C DP, CP, LIP #### [facility] [address] [place] [address] Supply Teacher: Kd Page MD XR CHEST (2 VW)on [...] Héctor Kimble MD 07/29/19 Final result Normal [facility] XR CHEST STANDARD (2 VW)Orde red By: Tobias Hogan on 07-29-2019 Lateral left costophrenic pleural thickening with surgical drains in the left upper abdomen. [employer] Work Phone: EXAMINATION: TWO XRAY VIEWS OF [...] abdomen. Cholecystectomy clips. No subdiaphragmatic free air. [employer] Phone: Abner, Mhpn Incoming Radiant Results From [facility] - 07/29/2019 3:11 PM EST EXAMINATION: TWO [...] surgical drains in the left upper abdomen. [employer] Work Phone: CBC Auto DifferentialOrdered By: Krishna Jefferson on 07-23-2019 [employer] Eos # 0.27 [employer] [facility] Work Phone: Absolute Immature Granulocyte <0.03 [employer] Work Phone: Absolute Lymph # 2.78 [facility] Work Phone: Absolute [place] # 0.56 [facility] Work Phone: Basophils (Bld) [#/Vol] 0.06 10*3/uL [employer] Work Phone: Basophils/100 WBC (Bld) 1 % 0 - 2 % M [employer] Phone: Differential Type NOT REPORTED [employer] Phone: Eosinophils/100 WBC (Bld) 3 % 1 - 4 % [employer] Phone: Erythrocyte distribution width (RBC) [Ratio] 13.1 % 11.8 - 14.4 % [employer] Phone: Hematocrit (Bld) [Volume fraction] 38.7 % 36.3 - 47.1 % [employer] Phone: Hemoglobin (Bld) [Mass/Vol] 12.4 g/dL 11.9 - 15.1 g/dL [employer] Phone: Immature granulocytes/100 WBC (Bld) 0 % 0 [employer] Phone: Lymphocytes/100 WBC (Bld) 33 % 24 - 43 % [employer] Phone: MCH (RBC) [Entitic mass] 30.9 pg 25.2 - 33.5 pg [facility] Work Phone: MCHC (RBC) [Mass/Vol] 32.0 g/dL 28.4 - 34.8 g/dL [facility] Work Phone: MCV (RBC) [Entitic vol] 96.5 fL 82.6 - 102.9 fL [facility] Work Phone: Monocytes/100 WBC (Bld) 7 % 3 - 12 % M [facility] Work Phone: NRBC Automated 0.0 0.0 per 100 WBC [facility] Work Phone: Platelet Estimate NOT REPORTED [facility] Work Phone: Platelet mean volume (Bld) [Entitic vol] 10.4 fL 8.1 - 13.5 fL [facility] Work Phone: Platelets (Bld) [#/Vol] 264 10*3/uL [facility] [employer] Work Phone: RBC (Bld) [#/Vol] 4.01 10*6/uL 3.95 - 5.1 1 m/uL [facility] Work Phone: RBC morphology finding Nom (Bld) NOT REPORTED [facility] [employer] Work Phone: Segmented neutrophils/100 WBC (Bld) 56 % 36 - 65 % [facility] [employer] Work Phone: Segs Absolute 4.66 [facility] Work Phone: WBC (Bld) [#/Vol] 8.3 10*3/uL [facility] Work Phone: WBC Morphology NOT REPORTED [employer] [facility] Work Phone: CBC with Diffon 07-23-2019 Abs. Basophil 0.06 k/uL Normal 0.00-0.20 [facility] Comment on above: Performed By: #### C DP, CP, LIP #### [address] [place] [address] Supply Teacher: Kd Page MD Abs.Imm.Granulocyte <0.03 Normal 0.00-0.30 [facility] Comment on above: Performed By: #### C DP, CP, LIP #### [address] [place] [address] Supply Teacher: Kd Page MD Abs.Neutrophil (Seg) 4.66 k/uL Normal 1.50-8.10 [facility] Comment on above: Performed By: #### C DP, CP, LIP #### [address] [place] [address] Supply Teacher: Kd Page MD Basophils/100 WBC (Bld) 1 % Normal 0-2 [facility] Comment on above: Performed By: #### C DP, CP, LIP #### [address] [place] [address] Supply Teacher: Kd Page MD Eosinophils (Bld) [#/Vol] 0.27 10*3/uL Normal 0.00-0.44 [facility] Comment on above: Performed By: #### C DP, CP, LIP #### [address] [place] [address] Supply Teacher: Kd Page MD Eosinophils/100 WBC (Bld) 3 % Normal 1-4 [facility] Comment on above: Performed By: #### C DP, CP, LIP #### [address] [place] [address] Supply Teacher: Kd Page MD Erythrocyte distribution width (RBC) [Ratio] 13.1 % Normal 11.8-14.4 [facility] Comment on above: Performed By: #### C DP, CP, LIP #### [address] [place] [address] Supply Teacher: Kd Page MD Hematocrit (Bld) [Volume fraction] 38.7 % Normal 36.3-47.1 [facility] Comment on above: Performed By: #### C DP, CP, LIP #### [facility] [address] [place] [address] Supply Teacher: Kd Page MD Hemoglobin (Bld) [Mass/Vol] 12.4 g/dL Normal 11.9-15.1 [facility] Comment on above: Performed By: #### C DP, CP, LIP #### [address] [place] [address] Supply Teacher: Kd Page MD Immature granulocytes (Bld) [#/Vol] 0 % Normal 0 [facility] Comment on above: Performed By: #### C DP, CP, LIP #### [address] [place] [address] Supply Teacher: Kd Page MD Lymphocytes (Bld) [#/Vol] 2.78 10*3/uL Normal 1.10-3.70 [facility] Comment on above: Performed By: #### C DP, CP, LIP #### [address] [place] [address] Supply Teacher: Kd Page MD Lymphocytes/100 WBC (Bld) 33 % Normal 24-43 [facility] Comment on above: Performed By: #### C DP, CP, LIP #### [facility] [address] [place] [id number] Supply Teacher: Kd Page MD MCH (RBC) [Entitic mass] 30.9 pg Normal 25.2-33.5 [facility] Comment on above: Performed By: #### C DP, CP, LIP #### [facility] [address] [place] [id number] Supply Teacher: Kd Page MD MCHC (RBC) [Mass/Vol] 32.0 g/dL Normal 28.4-34.8 [facility] Comment on above: Performed By: #### C TAMEKA CP, LIP #### [facility] [address] [place] [address] Supply Teacher: Kd Page MD MCV (RBC) [Entitic vol] 96.5 fL Normal 82.6-102.9 [facility] Comment on above: Performed By: #### C TAMEKA CP, LIP #### [facility] [address] [place], [place] [address]783 Supply Teacher: Kd Page MD Monocytes (Bld) [#/Vol] 0.56 10*3/uL Normal 0.10-1.20 [facility] Comment on above: Performed By: #### C JP ENGLISH, LIP #### [facility] [address] [place] [address] Supply Teacher: Kd Page MD Monocytes/100 WBC (Bld) 7 % Normal 3-12 [facility] Comment on above: Performed By: #### C JP ENGLISH, LIP #### [facility] [address] [place] [address] Supply Teacher: Kd Page MD Neutrophil (Seg) 56 % Normal 36-65 [facility] Comment on above: Performed By: #### C TAMEKA CP, LIP #### [facility] [address] [place] [address] Supply Teacher: Kd Page MD NRBC Automated 0.0 per 100 WBC Normal 0.0 [facility] Comment on above: Performed By: #### C TAMEKA CP, LIP #### [facility] [address] [place], [place] [id number] Supply Teacher: Kd Page MD Platelet mean volume (Bld) [Entitic vol] 10.4 fL Normal 8.1-13.5 [facility] Comment on above: Performed By: #### C DP, CP, LIP #### [facility] [address] [place] [address] Supply Teacher: Kd Page MD Platelets (Bld) [#/Vol] 264 10*3/uL Normal 138-453 [facility] Comment on above: Performed By: #### C DP, CP, LIP #### [facility] [address] [place] [id number] Supply Teacher: Kd Page MD RBC (Bld) [#/Vol] 4.01 10*6/uL Normal 3.95-5.11 [facility] Comment on above: Performed By: #### C DP, CP, LIP #### [address] [place] [address] Supply Teacher: Kd Page MD WBC (Bld) [#/Vol] 8.3 10*3/uL Normal 3.5-11.3 [facility] Comment on above: Performed By: #### C DP, CP, LIP #### [address] [place] [address] Supply Teacher: Kd Page MD Auto Diff Performed NOT REPORTED Normal [facility] Comment on above: Performed By: #### C DP, CP, LIP #### [facility] [address] [place] [address] Supply Teacher: Kd Page MD Platelets (Bld) [#/Vol] NOT REPORTED Normal [facility] Comment on above: Performed By: #### C DP, CP, LIP #### [facility] [address] [place] [id number] Supply Teacher: Kd Page MD RBC morphology finding Nom (Bld) NOT REPORTED Normal [facility] Comment on above: Performed By: #### C DP, CP, LIP #### [facility] [address] [place] [address] Supply Teacher: Kd Page MD WBC Morphology NOT REPORTED Normal [facility] Comment on above: Performed By: #### C JP ENGLISH, LIP #### [facility] [address] [place], [place] [id number] Supply Teacher: Kd Page MD CT ABDOMEN PELVIS W [...] Dusty Krueger MD 07/23/19 Final result Normal [facility] CT ABDOMEN PELVIS W IV CONTR ASTOrdered By: Krishna Jefferson on 07-23-2019 No bowel obstruction. No extravasation of oral contrast. Percutaneous drain within the left upper quadrant. Small perisplenic collection is suspected to be an abscess. Drain is seen adjacent to this but not directly within it. [employer] Phone: EXAMINATION: CT OF THE ABDOMEN AND [...] acute soft tissue abnormality. No osseous abnormality. [employer] Phone: Abner, Mhpn Incoming Radiant Results From [facility] - 07/23/2019 6:14 PM EST EXAMINATION: CT [...] to this but not directly within it. [facility] Work Phone: Comp Metabolic Profon 2018 (cont.) Normal [facility] Comment on above: Result Comment: Aver age GFR for 30-39 years old: 107 mL/min/1.73sq m Chronic Kidney Disease: <60 mL/min/1.73sq m Kidney failure: <15 mL/min/1.73sq m eGFR calculated using average adult body mass. Additional eGFR calculator available at: http://www.[employer].GIVVER/multiple_crcl_2012.htm Performed By: #### C JP ENGLISH, LIP #### [facility] [address] [place] [address] Supply Teacher: Kd Page MD Albumin [Mass/Vol] 3.7 g/dL Normal 3.5-5.2 [facility] Comment on above: Performed By: #### C JP ENGLISH, LIP #### [facility] [address] [place] [address] Supply Teacher: Kd Page MD Albumin/Globulin [Mass ratio] 1.0 {ratio} Normal 1.0-2.5 [facility] Comment on above: Performed By: #### C JP ENGLISH, LIP #### [facility] [address] [place], [place] [phone] Supply Teacher: Kd Page MD Alkaline Phos 57 U/L Normal 35-104 [facility] Comment on above: Performed By: #### C DP, CP, LIP #### [facility] [address] [place] [phone] Supply Teacher: Kd Page MD ALT [Catalytic activity/Vol] 10 U/L Normal 5-33 [facility] Comment on above: Performed By: #### C DP, CP, LIP #### [facility] [address] [place], [place] 1427[address] Supply Teacher: Kd Page MD Anion gap [Moles/Vol] 11 mmol/L Normal 9-17 [facility] Comment on above: Performed By: #### C DP, CP, LIP #### [facility] [address] [place], [place] 3644383 Supply Teacher: Kd Page MD AST [Catalytic activity/Vol] 18 U/L Normal <32 [facility] Comment on above: Performed By: #### C DP, CP, LIP #### [facility] [address] [place], [place] 6[address]83 Supply Teacher: Kd Page MD Bilirubin Ql (U) 0.20 mg/dL Low 0.3-1.2 [facility] Comment on above: Performed By: #### C DP, CP, LIP #### [facility] [address] [place], [place] 2630383 Supply Teacher: Kd Page MD BUN/CRE Ratio 17 Normal 9-20 [facility] Comment on above: Performed By: #### C DP, CP, LIP #### [facility] [address] [place], [place] [address]3 Supply Teacher: Kd Page MD Calcium [Mass/Vol] 9.0 mg/dL Normal 8.6-10.4 [facility] Comment on above: Performed By: #### C DP, CP, LIP #### [facility] [address] [place], [place] [phone] Supply Teacher: Kd Page MD Chloride [Moles/Vol] 104 mmol/L Normal 98-107 [facility] Comment on above: Performed By: #### C DP, CP, LIP #### [facility] [address] [place] [address] Supply Teacher: Kd Page MD CO2 [Moles/Vol] 24 mmol/L Normal 20-31 [facility] Comment on above: Performed By: #### C DP, CP, LIP #### [facility] [address] [place], [place] [id number] Supply Teacher: Kd Page MD Creatinine [Mass/Vol] 0.48 mg/dL Low 0.50-0.90 [facility] Comment on above: Performed By: #### C DP, CP, LIP #### [facility] [address] [place], [place] [phone] Supply Teacher: Kd Page MD GFR, Amer >60 Normal >60 [facility] Comment on above: Performed By: #### C DP, CP, LIP #### [facility] [address] [place], [place] [phone] Supply Teacher: Kd Page MD GFR,non Amer >60 Normal >60 [facility] Comment on above: Performed By: #### C DP, CP, LIP #### [facility] [address] [place], [place] [address]83 Supply Teacher: Kd Page MD Glucose [Mass/Vol] 93 mg/dL Normal 70-99 [facility] Comment on above: Performed By: #### C DP, CP, LIP #### [facility] [address] [place], [place] [address] Supply Teacher: Kd Page MD Potassium [Moles/Vol] 3.6 mmol/L Low 3.7-5.3 [facility] Comment on above: Performed By: #### C DP, CP, LIP #### [facility] [address] [place], [place] 389[address]83 Supply Teacher: Kd Page MD Protein [Mass/Vol] 7.4 g/dL Normal 6.4-8.3 [facility] Comment on above: Performed By: #### C DP, CP, LIP #### [facility] [address] [place] [address] Supply Teacher: Kd Page MD Sodium [Moles/Vol] 139 mmol/L Normal 135-144 [facility] Comment on above: Performed By: #### C TAMEKA CP, LIP #### [address] [place] [address] Supply Teacher: Kd Page MD Staging: Normal [facility] Comment on above: Result Comment: Stag e 1: Some kidney damage normal GFR Stage 2: Mild kidney damage GFR 60-89 Stage 3: Moderate kidney damage GFR 30-59 Stage 4: Severe kidney damage GFR 15-29 Stage 5: Severe kidney damage GFR <15 ESRD - chronic treatment by dialysis or transplant Performed By: #### C TAMEKA CP, LIP #### [address] [place], [facility] Supply Teacher: Kd Page MD Urea nitrogen [Mass/Vol] 8 mg/dL Normal 6-20 [facility] Comment on above: Performed By: #### C DP CP, LIP #### [facility] [address] [place] [address] Supply Teacher: Kd Page MD [facility] Metabolic [facility] lOrdered By: Krishna Jefferson on 07-23-2019 Albumin [Mass/Vol] 3.7 g/dL 3.5 - 5.2 g/dL [facility] Work Phone: Albumin/Globulin [Mass ratio] 1.0 {ratio} [employer] Phone: ALP [Catalytic activity/Vol] 57 U/L 35 - 104 U/L [employer] Phone: ALT [Catalytic activity/Vol] 10 U/L 5 - 33 U/L [employer] Phone: Anion gap [Moles/Vol] 11 mmol/L 9 - 17 mmol/L [employer] Phone: AST [Catalytic activity/Vol] 18 U/L <32 [employer] Phone: Bilirubin [Mass/Vol] 0.20 mg/dL Low 0.3 - 1 .2 mg/dL [employer] Phone: Bun/Cre Ratio 17 [employer] Work Phone: Calcium [Mass/Vol] 9.0 mg/dL 8.6 - 10. 4 mg/dL [employer] Phone: Chloride [Moles/Vol] 104 mmol/L 98 - 10 7 mmol/L [employer] Phone: CO2 [Moles/Vol] 24 mmol/L 20 - 31 mmol/L [employer] Phone: Creatinine [Mass/Vol] 0.48 mg/dL Low 0.5 - 0.9 mg/dL [employer] Phone: GFR >60 >60 mL/min [facility] Phone: GFR Comment [facility] Phone: Comment on above: Average GFR for 30-3 9 years old: 107 mL/min/1.73sq m Chronic Kidney Disease: <60 mL/min/1.73sq m Kidney failure: <15 mL/min/1.73sq m eGFR calculated using average adult body mass. Additional eGFR calculator available at: http://www.The DodoKAL/multiple_crcl_2012.htm GFR Non- >60 >60 mL/min [facility] Phone: GFR Staging [facility] Phone: Comment on above: Stage 1: Some kidney damage normal GFR Stage 2: Mild kidney damage GFR 60-89 Stage 3: Moderate kidney damage GFR 30-59 Stage 4: Severe kidney damage GFR 15-29 Stage 5: Severe kidney damage GFR <15 ESRD - chronic treatment by dialysis or transplant Glucose [Mass/Vol] 93 mg/dL 70 - 99 mg/dL [facility] Phone: Potassium [Moles/Vol] 3.6 mmol/L Low 3.7 - 5.3 mmol/L [facility] Phone: Protein [Mass/Vol] 7.4 g/dL 6.4 - 8.3 g/dL [facility] Phone: Sodium [Moles/Vol] 139 mmol/L 135 - 144 mmol/L [facility] Phone: Urea nitrogen [Mass/Vol] 8 mg/dL 6 - 20 mg/dL [facility] Phone: Lipaseon 07-23-2019 Lipase [Catalytic activity/Vol] 70 U/L High 13-60 [facility] Comment on above: Performed By: #### C DP, CP, LIP #### [facility] [address] [place] [address] Supply Teacher: Kd Page MD LipaseOrdered By: Krishna tatum on 07-23-2019 Lipase [Catalytic activity/Vol] 70 U/L High 13 - 60 U/L [facility] Phone: Microscopic UrinalysisOrdere d By: Krishna Jefferson on 07-23-2019 - [facility] Phone: Amorphous, UA NOT REPORTED None [facility] Work Phone: Bacteria, UA 1+ Abnormal None [facility] Phone: Casts UA NOT REPORTED /LPF [employer] Work Phone: Crystals UA 2 TO 5 CALCIUM OXALATE Abnormal None /HPF [facility] Work Phone: Epithelial Cells UA 2 TO 5 [facility] Work Phone: Interpretation and review of laboratory results Abnormal [employer] Work Phone: Mucus, UA 3+ Abnormal None [facility] Work Phone: Other Observations UA NOT REPORTED NOT REQ. [facility] Work Phone: RBC, UA 0 TO 2 [facility] Work Phone: Renal Epithelial, Urine NOT REPORTED 0 /HPF [employer] Work Phone: Trichomonas, UA NOT REPORTED None [facility] Work Phone: WBC, UA 0 TO 2 [facility] Work Phone: Yeast, UA NOT REPORTED None [facility] Phone: No Panel InformationOrdered By: Krishna Jefferson on 07-23-2019 Interpretation and review of laboratory results Abnormal [facility] Phone: UA w/Reflex Cultureon 2018 Acetoacetic Acid,Ur TRACE Abnormal NEG [facility] Comment on above: Performed By: #### U AXLUCIA #### [facility] [address] [place] [address] Supply Teacher: Kd Page MD Bilirubin, SemiQt,Ur Negative Normal NEG [facility] Comment on above: Performed By: #### U LUCIA HARDWICK #### [facility] [address] [place] [address] Supply Teacher: Kd Page MD Color (U) YELLOW Normal YEL [facility] Comment on above: Performed By: #### U AXLUCIA #### [facility] [address] [place], [place] [id number] Supply Teacher: Kd Page MD Glucose Ql (U) Negative Normal NEG [facility] Comment on above: Performed By: #### U AX, UMICAO #### [facility] [address] [place], [place] [id number] Supply Teacher: Kd Page MD Hemoglobin, Ur Negative Normal NEG [facility] Comment on above: Performed By: #### U AX, UMICAO #### [facility] [address] [place], [place] [id number] Supply Teacher: Kd Page MD Leukocyte esterase Test strip Ql (U) Negative Normal NEG [facility] Comment on above: Performed By: #### U AX, UMICAO #### [address] [place], [place] [id number] Supply Teacher: Kd Page MD Nitrite,Ur Negative Normal [facility] Comment on above: Performed By: #### U AX, UMICAO #### [address] [place], [place] [id number] Supply Teacher: Kd Page MD pH (U) 6.0 [pH] Normal 5.0-9.0 [facility] Comment on above: Performed By: #### U AX, UMICAO #### [address] [place], [place] [id number] Supply Teacher: Kd Page MD Protein Ql (U) Negative Normal NEG [facility] Comment on above: Performed By: #### U AX, UMICAO #### [facility] [address] [place], [place] [id number] Supply Teacher: Kd Page MD Specific gravity (U) [Rel density] >1.030 High 1.010-1.020 [facility] Comment on above: Performed By: #### U AX, UMICAO #### [facility] [address] [place], [place] [id number] Supply Teacher: Kd Page MD Turbidity CLEAR Normal CLEAR [facility] Comment on above: Performed By: #### U AX, UMICAO #### [facility] [address] [place], [place] [id number] Supply Teacher: Kd Page MD Urobilinogen,Ur Normal Normal NORM [facility] Comment on above: Performed By: #### U AX, UMICAO #### [facility] [address] [place], [place] [id number] Supply Teacher: Kd Page MD Comment NOT REPORTED Normal [facility] Comment on above: Performed By: #### U AX, UMICAO #### [facility] [address] [place], [place] [id number] Supply Teacher: Kd Page MD Urinalysis Reflex to Culture Ordered By: Krishna Jefferson on 07-23-2019 Bilirubin Urine Negative NEGATIVE [facility] Work Phone: Color, UA YELLOW YELLOW [facility] Work Phone: Glucose, Ur Negative NEGATIVE [facility] Work Phone: Interpretation and review of laboratory results Abnormal [facility] Work Phone: Ketones Ql (U) TRACE Abnormal NEGATIVE [facility] Work Phone: Leukocyte esterase Test strip Ql (U) Negative NEGATIVE [facility] Work Phone: Nitrite, Urine Negative NEGATIVE [facility] Work Phone: pH, UA 6.0 [facility] Work Phone: Protein, UA Negative NEGATIVE [facility] Work Phone: Specific [place], UA >1.[address] [facility] Work Phone: Turbidity UA CLEAR CLEAR [facility] Work Phone: Urinalysis Comments NOT REPORTED [facility] Work Phone: Urine Hgb Negative NEGATIVE [facility] [employer] Phone: Urobilinogen, Urine Normal Normal [facility] [employer] Phone: Urinalysis,Microon 07-23 9 ----- Normal [facility] Comment on above: Performed By: #### U AX, UMICAO #### [facility] [address] [place], [place] [id number] Supply Teacher: Kd Page MD Bacteria LM.HPF (Urine sed) [#/Area] 1+ Abnormal [facility] Comment on above: Performed By: #### U AX, UMICAO #### [facility] [address] [place], [place] [id number] Supply Teacher: Kd Page MD Crystals LM Nom (Urine sed) 2 TO 5 Abnormal [facility] Comment on above: Result Comment: CALC IUM OXALATE Performed By: #### U AX, UMICAO #### [facility] [address] [place], [place] [id number] Supply Teacher: Kd Page MD Epithelial cells LM.HPF (Urine sed) [#/Area] 2 TO 5 Normal 0-25 [facility] Comment on above: Performed By: #### U AX, UMICAO #### [facility] [address] [place], [place] [id number] Supply Teacher: Kd Page MD Mucus Strands 3+ Abnormal [facility] Comment on above: Performed By: #### U AX, UMICAO #### [facility] [address] [place] [address] Supply Teacher: Kd Page MD RBC (U) [#/Vol] 0 TO 2 Normal 0-2 [facility] Comment on above: Performed By: #### U AX, UMICAO #### [facility] [address] [place] [address] Supply Teacher: Kd Page MD WBC (U) [#/Vol] 0 TO 2 Normal 0-5 [facility] Comment on above: Performed By: #### U AX, UMICAO #### [facility] [address] [place], [place] [phone] Supply Teacher: Kd Page MD Amorphous sediment LM Ql (Urine sed) NOT REPORTED Normal NONE [facility] Comment on above: Performed By: #### U AX, UMICAO #### [facility] [address] [place] [address] Supply Teacher: Kd Page MD Casts LM.LPF (Urine sed) [#/Area] NOT REPORTED Normal [facility] Comment on above: Performed By: #### U AX, UMICAO #### [facility] [address] [place] [id number] Supply Teacher: Kd Page MD Epithelial, Renal NOT REPORTED Normal 0 [facility] Comment on above: Performed By: #### U AX, UMICAO #### [facility] [address] [place], [place] [address] Supply Teacher: Kd Page MD Other Observations NOT REPORTED Normal NREQ [facility] Comment on above: Performed By: #### U AX, UMICAO #### [facility] [address] [place], [place] [phone] Supply Teacher: Kd Page MD Trichomonas NOT REPORTED Normal NONE [facility] Comment on above: Performed By: #### U AX, UMICAO #### [facility] [address] [place], [place] [phone] Supply Teacher: Kd Page MD Yeast LM Ql (Urine sed) NOT REPORTED Normal NONE [facility] Comment on above: Performed By: #### U AX, UMICAO #### [facility] [address] [place] [address] Supply Teacher: Kd Page MD Vital Signs Date Time Vital Sign Value Performing Clinician Facility 08-30-2024 16:33-0500 Body temperature 98.24 [degF] Jerrell Porter [facility] 08-30-2024 16:33-0500 Diastolic blood pressure 76 mm[Hg] Jerrell Porter [facility] 08-30-2024 16:33-0500 Heart rate 72 /min Jerrell Porter [facility] 08-30-2024 16:33-0500 Respiratory rate 16 /min Jerrell Porter [facility] 08-30-2024 16:33-0500 SaO2% (BldA) [Mass fraction] 98 % Jerrell Porter [facility] 08-30-2024 16:33-0500 Systolic blood pressure 109 mm[Hg] Jerrell Porter [facility] 08-26-2024 07:51-0500 Body temperature 98.24 [degF] Zfaar Stephens [facility] 08-26-2024 07:51-0500 Diastolic blood pressure 82 mm[Hg] Zafar Stephens [facility] 08-26-2024 07:51-0500 Heart rate 82 /min Zafar Stephens [facility] 08-26-2024 07:51-0500 Respiratory rate 17 /min Zafar Stephens [facility] 08-26-2024 07:51-0500 SaO2% (BldA) [Mass fraction] 100 % Zafar Stephens [facility] 08-26-2024 07:51-0500 Systolic blood pressure 124 mm[Hg] Zafar Stephens [facility] 08-14-2024 10:11-0500 Body height 165.1 cm Mela Lowe PA Work Phone: [facility] [employer] 08-14-2024 10:11-0500 Body mass index (BMI) [Ratio] 28.46 kg/m2 Mela Lowe PA Work Phone: [facility] 08-14-2024 10:11-0500 Body weight 77.56 kg Mela Lowe PA Work Phone: [facility] 08-14-2024 10:11-0500 Diastolic blood pressure 84 mm[Hg] Mela Lowe PA Work Phone: [facility] 08-14-2024 10:11-0500 Heart rate 88 /min Mela Lowe PA Work Phone: [facility] 08-14-2024 10:11-0500 Respiratory rate 16 /min Mela Lowe PA Work Phone: [facility] [employer] 08-14-2024 10:11-0500 SaO2% (BldA) [Mass fraction] 97 % Mela Lowe PA Work Phone: [facility] [employer] 08-14-2024 10:11-0500 Systolic blood pressure 120 mm[Hg] Emla Lowe PA Work Phone: [facility] 08-09-2024 15:47-0500 Body height 165.1 cm Nona Tallassee DO Work Phone: [facility] 08-09-2024 15:47-0500 Body mass index (BMI) [Ratio] 28.29 kg/m2 Nona Tallassee DO Work Phone: [facility] 08-09-2024 15:47-0500 Body temperature 97.39 [degF] Nona Tallassee DO Work Phone: [facility] 08-09-2024 15:47-0500 Body weight 77.11 kg Nona Tallassee DO Work Phone: [facility] 08-09-2024 15:47-0500 Diastolic blood pressure 78 mm[Hg] Nona Tallassee DO Work Phone: [facility] 08-09-2024 15:47-0500 Heart rate 95 /min Nona Tallassee DO Work Phone: [facility] 08-09-2024 15:47-0500 SaO2% (BldA) [Mass fraction] 98 % Nona Tallassee DO Work Phone: [facility] 08-09-2024 15:47-0500 Systolic blood pressure 122 mm[Hg] Nona Tallassee DO Work Phone: [facility] 08-03-2024 07:40-0500 Body temperature 97.88 [degF] Daryn Roman [facility] 08-03-2024 07:40-0500 Diastolic blood pressure 77 mm[Hg] Daryn Roman [facility] 08-03-2024 07:40-0500 Heart rate 74 /min Daryn Roman [facility] 08-03-2024 07:40-0500 Respiratory rate 18 /min Daryn Roman [facility] 08-03-2024 07:40-0500 SaO2% (BldA) [Mass fraction] 99 % Daryn Roman [facility] 08-03-2024 07:40-0500 Systolic blood pressure 124 mm[Hg] Daryn Roman [facility] 06-30-2024 16:59-0500 Body temperature 97.88 [degF] Jerrell Porter [facility] 06-30-2024 16:59-0500 Diastolic blood pressure 72 mm[Hg] Jerrell German [facility] 06-30-2024 16:59-0500 Heart rate 88 /min Jerrell Porter [facility] 06-30-2024 16:59-0500 Respiratory rate 14 /min Jerrell Porter [facility] 06-30-2024 16:59-0500 SaO2% (BldA) [Mass fraction] 100 % Jerrell Porter [facility] 06-30-2024 16:59-0500 Systolic blood pressure 108 mm[Hg] Jerrell Porter [facility] 05-10-2024 15:37-0400 Body height 165.1 cm Nona Tallassee DO Work Phone: [facility] 05-10-2024 15:37-0400 Body mass index (BMI) [Ratio] 29.35 kg/m2 Nona Tallassee DO Work Phone: [facility] 05-10-2024 15:37-0400 Body temperature 97.81 [degF] Nona Tallassee DO Work Phone: [facility] 05-10-2024 15:37-0400 Body weight 80.02 kg Nona Tallassee DO Work Phone: [facility] 05-10-2024 15:37-0400 Diastolic blood pressure 70 mm[Hg] Nona Tallassee DO Work Phone: [facility] 05-10-2024 15:37-0400 Heart rate 90 /min Nona Tallassee DO Work Phone: [facility] 05-10-2024 15:37-0400 SaO2% (BldA) [Mass fraction] 98 % Nona Tallassee DO Work Phone: [facility] 05-10-2024 15:37-0400 Systolic blood pressure 112 mm[Hg] Nona Tallassee DO Work Phone: [facility] 04-02-2024 09:29-0400 Body height 165.1 cm Nona Tallassee DO Work Phone: [facility] 04-02-2024 09:29-0400 Body mass index (BMI) [Ratio] 29.72 kg/m2 Nona Tallassee DO Work Phone: [facility] 04-02-2024 09:29-0400 Body temperature 97.2 [degF] Onna Tallassee DO Work Phone: [facility] 04-02-2024 09:29-0400 Body weight 81.01 kg Nona Tallassee DO Work Phone: [facility] 04-02-2024 09:29-0400 Diastolic blood pressure 74 mm[Hg] Nona Tallassee DO Work Phone: [facility] 04-02-2024 09:29-0400 Heart rate 92 /min Nona Tallassee DO Work Phone: [facility] 04-02-2024 09:29-0400 SaO2% (BldA) [Mass fraction] 97 % Nona Tallassee DO Work Phone: [facility] 04-02-2024 09:29-0400 Systolic blood pressure 126 mm[Hg] Nona Tallassee DO Work Phone: [facility] 03-13-2024 13:27-0400 Body weight 80.74 kg Marisa Bowers SURGICAL SCRUB TECHNOLOGIST Work Phone: [facility] 03-13-2024 13:27-0400 Diastolic blood pressure 60 mm[Hg] Marisa Bowers SURGICAL SCRUB TECHNOLOGIST Work Phone: [facility] 03-13-2024 13:27-0400 Systolic blood pressure 104 mm[Hg] Marisa Bowers SURGICAL SCRUB TECHNOLOGIST Work Phone: [facility] 05-26-2022 10:37-0400 Body height 165.1 cm Sanket Medina MD Work Phone: [facility] 05-26-2022 10:37-0400 Body mass index (BMI) [Ratio] 23.48 kg/m2 Sanket Medina MD Work Phone: [facility] 05-26-2022 10:37-0400 Body temperature 98.01 [degF] Sanket Medina MD Work Phone: [facility] 05-26-2022 10:37-0400 Body weight 64 kg Sanket Medina MD Work Phone: [facility] 05-26-2022 10:37-0400 Diastolic blood pressure 62 mm[Hg] Sanket Medina MD Work Phone: [facility] 05-26-2022 10:37-0400 Heart rate 104 /min Sanket Medina MD Work Phone: [facility] 05-26-2022 10:37-0400 Systolic blood pressure 120 mm[Hg] Sanket Medina MD Work Phone: [facility] 01-04-2020 10:15-0400 Pulse (Heart Rate) 60 /min [place] 01-04-2020 10:15-0400 Pulse Oximetry 97 % Jeannie [facility], [place] 01-04-2020 10:10-0400 BP Diastolic 61 mm[Hg] Jeannie [place], [place] 01-04-2020 10:10-0400 BP Systolic 101 mm[Hg] [facility] [place] 01-04-2020 10:10-0400 Respiratory Rate 14 /min [place] 01-04-2020 09:45-0400 Body Temperature 98.2 [degF] [place] 01-04-2020 08:40-0400 BMI (Body Mass Index) 23.82 kg/m2 Jeannie [place] 01-04-2020 08:40-0400 Body weight 66.[address] [facility] 01-04-2020 08:40-0400 Height 167.6 cm Jeannie [place], [place] 12-18-2019 08:54-0400 Body Temperature 98.1 [degF] Tobias [facility], [place] 12-18-2019 08:54-0400 BP Diastolic 59 mm[Hg] Tobias [facility], [place] 12-18-2019 08:54-0400 BP Systolic 99 mm[Hg] Tobias [employer], [place] 12-18-2019 08:54-0400 Pulse (Heart Rate) 86 /min Tobias Z[place], [place] 12-18-2019 08:54-0400 Pulse Oximetry 98 % Tobias Zavala [employer], [place] 12-18-2019 08:54-0400 Respiratory Rate 16 /min [facility] [employer] 12-15-2019 22:00-0400 BMI (Body Mass Index) 24.46 kg/m2 Tobias [employer], [place] 12-15-2019 22:00-0400 Body weight 66.68 kg [facility] [employer], [place] 12-15-2019 22:00-0400 Height 165.1 cm [facility] 07-29-2019 16:39-0500 Respiratory rate 16 /min Tobias [employer] Phone: [facility] Phone: 07-29-2019 16:25-0500 SaO2% (BldA) [Mass fraction] 100 % [employer] Phone: [facility] Phone: 07-29-2019 16:21-0500 Diastolic blood pressure 78 mm[Hg] Tobias [employer] Phone: [facility] Phone: 07-29-2019 16:21-0500 Systolic blood pressure 114 mm[Hg] Tobias [employer] Phone: [facility] Phone: 07-29-2019 14:55-0500 Heart rate 66 /min Tobias [employer] Phone: [facility] Phone: 07-29-2019 13:05-0500 Body mass index (BMI) [Ratio] 19.64 kg/m2 Tobias Hogan DO Work Phone: [employer] Work Phone: 07-29-2019 13:05-0500 Body temperature 98.29 [degF] Tobias Hogan DO Work Phone: [employer] Work Phone: 07-29-2019 13:05-0500 Body weight 53.52 kg Tobias Hogan DO Work Phone: [employer] Work Phone: 07-23-2019 21:40-0500 Body height 165.1 cm Venice Caballero MD Work Phone: [employer] Work Phone: 07-23-2019 21:40-0500 Body mass index (BMI) [Ratio] 19.14 kg/m2 Venice Caballero MD Work Phone: [employer] Work Phone: 07-23-2019 21:40-0500 Body temperature 98.6 [degF] Venice Caballero MD Work Phone: [employer] Work Phone: 07-23-2019 21:40-0500 Body weight 52.16 kg Venice Caballero MD Work Phone: [employer] Work Phone: 07-23-2019 21:40-0500 Diastolic blood pressure 63 mm[Hg] Venice Caballero MD Work Phone: [employer] Work Phone: 07-23-2019 21:40-0500 Heart rate 85 /min Venice Caballero MD Work Phone: [employer] Work Phone: 07-23-2019 21:40-0500 Respiratory rate 18 /min Venice Caballero MD Work Phone: [employer] Work Phone: 07-23-2019 21:40-0500 SaO2% (BldA) [Mass fraction] 99 % Venice Caballero MD Work Phone: [employer] Work Phone: 07-23-2019 21:40-0500 Systolic blood pressure 103 mm[Hg] Venice Caballero MD Work Phone: [employer] Work Phone: 07-23-2019 20:09-0500 Diastolic blood pressure 58 mm[Hg] [employer] Work Phone: 07-23-2019 20:09-0500 Heart rate 77 /min [employer] Work Phone: 07-23-2019 20:09-0500 SaO2% (BldA) [Mass fraction] 99 % [employer] Work Phone: 07-23-2019 20:09-0500 Systolic blood pressure 105 mm[Hg] [employer] Work Phone: 07-23-2019 19:06-0500 Body temperature 97.7 [degF] [facility] Phone: 07-23-2019 13:46-0500 Body weight 52.16 kg [employer] Work Phone: 07-23-2019 13:46-0500 Respiratory rate 18 /min [employer] Phone: Encounters Encounter Date Encounter Type Care Provider Facility Start: 09-27-2024 End: 09-28-2024 Emergency department patient visit David Krishnajustus [place] [place]: 09-17-2024 End: 09-17-2024 Refill Nona Landry DO Work Phone: [facility] [phone] Comment on above: Attention deficit hy peractivity disorder (ADHD), unspecified ADHD type (CMS/HCC) 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) (CMS/HCC) Start: 08-30-2024 End: 08-30-2024 Emergency department patient visit Jerrell Porter [facility] Start: 08-30-2024 End: 08-30-2024 Refill Nona L Tallassee DO Work Phone: [facility] [phone] Comment on above: Type 2 diabetes rachel itus with hypoglycemia without coma, without long-term current use of insulin ([facility]) (Primary Dx) Start: 08-26-2024 End: 08-26-2024 Emergency department patient visit Zafar Barreto Angel[facility] Start: 08-19-2024 End: 08-20-2024 Refill Nona L Tallassee DO Work Phone: [facility] 043 Comment on above: Attention deficit hy peractivity disorder (ADHD), unspecified ADHD type ([facility]) Start: 08-14-2024 End: 08-14-2024 Bamboo flowsheet Mela Lowe PA Work Phone: [facility] Start: 08-14-2024 End: 08-14-2024 Bamboo flowsheet Mela Lowe PA Work Phone: [facility] Start: 08-14-2024 End: 08-14-2024 Office outpatient visit 25 minutes Mela Lowe PA Work Phone: [facility] Comment on above: Chronic migraine wit hout aura without status migrainosus, not intractable ([facility]) (Primary Dx); Seizure ([facility]) Start: 08-14-2024 End: 08-14-2024 ambulatory MELA LOWE Not Available Start: 08-09-2024 End: 08-09-2024 Office outpatient visit 25 minutes Nona L Tallassee DO Work Phone: [facility] 230 Comment on above: History of gastric b ypass (Primary Dx); Type 2 diabetes mellitus with hypoglycemia without coma, without long-term current use of insulin ([facility]); Dumping syndrome Start: 08-09-2024 End: 08-10-2024 ambulatory NONA L CUTLER Not Available Start: 08-09-2024 End: 08-09-2024 Bamboo flowsheet Nona L Tallassee DO Work Phone: [facility] Start: 08-09-2024 End: 08-09-2024 Bamboo flowsheet Nona L Tallassee DO Work Phone: [facility] Start: 08-06-2024 End: 08-06-2024 Clinisync Result Encounter Marisa Bowers SURGICAL SCRUB TECHNOLOGIST Work Phone: [facility] Unsolicited Start: 08-06-2024 End: 08-06-2024 Clinisync Result Encounter Marisa Bowers SURGICAL SCRUB TECHNOLOGIST Work Phone: [facility] Unsolicited Start: 08-03-2024 End: 08-03-2024 Emergency department patient visit Daryn Roman [facility] Start: 07-18-2024 End: 07-19-2024 Refill Nona L Tallassee DO Work Phone: [facility] 230 Comment on above: Attention deficit hy peractivity disorder (ADHD), unspecified ADHD type (CMS/HCC) Start: 07-15-2024 End: 07-16-2024 Refill Nona L Tallassee DO Work Phone: [facility] Comment on above: Attention deficit hy peractivity disorder (ADHD), unspecified ADHD type (CMS/HCC) Start: 06-30-2024 End: 06-30-2024 Emergency department patient visit Jerrell Porter [facility] Start: 06-17-2024 End: 06-18-2024 Refill Nona L Tallassee DO Work Phone: [facility] 230 Comment on above: Attention deficit hy peractivity disorder (ADHD), unspecified ADHD type (CMS/HCC) Start: 06-10-2024 End: 06-11-2024 Refill Nona L Tallassee DO Work Phone: [facility] Comment on above: Attention deficit hy peractivity disorder (ADHD), unspecified ADHD type (CMS/HCC) Start: 06-08-2024 End: 06-08-2024 Orders Only Nona L Tallassee DO Work Phone: [facility] 230 Comment on above: Type 2 diabetes rachel itus with hypoglycemia without coma, without long-term current use of insulin (CMS/HCC); Dumping syndrome Start: 06-07-2024 End: 06-07-2024 ambulatory Anson Patiño Facility:[facility] Start: 05-10-2024 End: 05-10-2024 Office outpatient visit 25 minutes Nona L Tallassee DO Work Phone: [facility] 230 Comment on above: Type [...] 05-10-2024 End: 05-10-2024 Bamboo flowsheet Nona L Tallassee DO Work Phone: [facility] Start: 05-10-2024 End: 05-10-2024 Bamboo flowsheet Nona L Tallassee DO Work Phone: [facility] Start: 05-08-2024 End: 05-08-2024 Refill Nona L Tallassee DO Work Phone: [facility] 230 Comment on above: Attention deficit hy peractivity disorder (ADHD), unspecified ADHD type (CMS/HCC) (Primary Dx) Start: 04-05-2024 End: 04-05-2024 ambulatory Anson Patiño Facility:[facility] Start: 04-02-2024 End: 04-02-2024 Bamboo flowsheet Nona L Tallassee DO Work Phone: [facility] Start: 04-02-2024 End: 04-02-2024 Bamboo flowsheet Nona L Tallassee DO Work Phone: [facility] Start: 04-02-2024 End: 04-02-2024 Office outpatient visit 25 minutes Nona Landry DO Work Phone: [facility] 230 Comment on above: Reactive hypoglycemi a (Primary Dx); Type 2 diabetes mellitus with hypoglycemia without coma, without long-term current use of insulin (CMS/HCC); Dumping syndrome; Migraine without aura and without status migrainosus, not intractable (CMS/HCC); 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CMS/HCC); Vitamin D insufficiency; Encounter for vitamin deficiency screening; History of gastric bypass Start: 04-02-2024 End: 04-02-2024 ambulatory NONA LANDRY Not Available Start: 03-29-2024 ambulatory Anson escalante DO Facility:[facility] Start: 03-14-2024 End: 03-14-2024 Telephone encounter Bing Britt MA [facility] Comment on above: Ubrelvy Denied Start: 03-13-2024 End: 03-13-2024 Office outpatient new 45 minutes Marisa Carol Bowers SURGICAL SCRUB TECHNOLOGIST Work Phone: [facility] Comment on above: Chronic migraine wit hout aura without status migrainosus, not intractable (CMS/HCC) (Primary Dx); Seizure (CMS/HCC) Start: 03-13-2024 End: 03-13-2024 ambulatory MARISA C WINDNAGEL Not Available Start: 01-03-2024 End: 01-03-2024 ambulatory Anson Patiño DO Facility:[facility] Start: 12-13-2023 ambulatory Anson escalante DO Facility:[facility] Start: 09-23-2023 End: 09-23-2023 ambulatory Anson Patiño DO Facility:[facility] Start: 07-21-2023 End: 07-21-2023 ambulatory Lorin GLASGOW Facility:[facility] Start: 06-27-2023 End: 06-27-2023 ambulatory SONIYA [facility] Start: 04-22-2023 End: 04-22-2023 ambulatory Jaquelin Schwab [facility] Work Phone: [facility] [place] Start: 04-22-2023 End: 04-22-2023 Patient encounter procedure Jaquelin Schwab [facility] Work Phone: [facility] [place] Start: 03-07-2023 End: 03-07-2023 ambulatory SONIYA RIVERO [facility] Start: 12-27-2022 End: 12-27-2022 ambulatory Katarina Healy [facility],PharmD [facility] Start: 12-27-2022 Patient encounter procedure Katarina Healy [facility]armD [facility] Start: 12-23-2022 End: 12-23-2022 ambulatory SU BRIANDA [facility] Start: 05-26-2022 ambulatory [facility] Facility:[facility] Start: 05-26-2022 End: 05-26-2022 Office outpatient new 60 minutes Sanket Medina MD Work Phone: [facility] [place] Comment on above: Focal epilepsy (Prim romeo Dx); Complicated migraine; Reversible cerebrovascular vasoconstriction syndrome Start: 05-11-2022 ambulatory [facility] Facility:[facility] Start: 03-29-2021 End: 03-29-2021 Emergency department patient visit Priyanka Angelo MD Facility:[facility] Start: 01-04-2020 End: 01-04-2020 Patient encounter procedure JEANNIE GARCIA [facility] Start: 01-04-2020 End: 01-04-2020 Subsequent hospital visit by physician Jeannie Garcia Work Phone: [facility] Start: 01-01-2020 End: 01-06-2020 Patient encounter procedure JUAN A Hammond REDDING [facility] Start: 01-01-2020 End: 01-05-2020 Subsequent hospital visit by physician Laura Vidalid19 Pat Screening Schedule [facility] Comment on above: Pre-op testing Start: 12-15-2019 End: 12-18-2019 Evaluation and management of inpatient VIELKA THAYER [facility] Start: 12-15-2019 End: 12-18-2019 Evaluation and management of inpatient Tobias Zavala Work Phone: [facility] Comment on above: Intussusception (HCC ) (Primary Dx); S/P laparoscopic surgery Start: 07-29-2019 End: 07-29-2019 Emergency department patient visit HARTFORD Luke [facility] Start: 07-29-2019 End: 07-29-2019 [facility] Work [facility]: [facility] Comment on above: Evaluation for remov al of FLYNN drains (Primary Dx); Intractable episodic headache, unspecified headache type; Nausea; Yeast vaginitis Start: 07-23-2019 End: 07-24-2019 Emergency department patient visit VENICE HAILEY [facility] Start: 07-23-2019 End: 07-23-2019 Emergency department patient visit Venice Caballero MD Work Phone: [facility] ED Comment on above: Abscess, intra-abdom inal, postoperative (Primary Dx); Yeast infection Start: 07-23-2019 End: 07-23-2019 Emergency department patient visit [facility] Start: 07-23-2019 End: 07-23-2019 Emergency department patient visit [facility] ED Comment on above: Intra-abdominal absc ess (HCC) (Primary Dx) Procedures Date Procedure Procedure Detail Performing Clinician Start: 08-06-2024 ALL BASIC METABOLIC PANEL Marisa jasmine NP Work Phone: Start: 04-02-2024 Hemoglobin glycosylated a1c Nona Landry DO Work Phone: Start: 01-29-2021 End: 04-02-2024 H/O: hysterectomy History of hysterectomy Nona George Work Phone: Start: 01-04-2020 DISCHARGE PATIENT VENICE CABALLERO Start: 01-04-2020 Level iv surg pathology gross&microscopic exam VENICE CABALLERO Start: 01-04-2020 BEDREST VENICE CABALLERO Start: 01-04-2020 Continuous pulse oximetry VENICE CABALLERO Start: 01-04-2020 ENCOURAGE DEEP BREATHING AND COUGHING VENICE CABALLERO Start: 01-04-2020 INITIATE OXYGEN THERAPY PROTOCOL VENICE HAILEY Start: 01-04-2020 NOTIFY PHYSICIAN (SPECIFY) VENICE HAILEY Start: 01-04-2020 NURSING COMMUNICATION VENICE FISHERBER Start: 01-04-2020 VITAL SIGNS VENICE HAILEY Start: 01-01-2020 COVID-19 AMBULATORY TOBIAS HOGAN Start: 01-01-2020 COVID-19 AMBULATORY Juan A Redding Work Phone: Start: 12-18-2019 INITIATE OXYGEN THERAPY PROTOCOL VENICE HAILEY Start: 12-18-2019 DISCHARGE PATIENT VENICE HAILEY Start: 12-18-2019 INTAKE AND OUTPUT VENICE HAILEY Start: 12-17-2019 DIET GENERAL VENICE HAILEY Start: 12-17-2019 MISCELLANEOUS NURSING CARE ORDER (SPECIFY) VENICE HAILEY Start: 12-17-2019 TRANSFER PATIENT VENICE HAILEY Start: 12-17-2019 End: 12-17-2019 LAPAROSCOPY EXPLORATORY Jeannie [...] Phone: Start: 12-16-2019 INTAKE AND OUTPUT VENICE HAILEY Start: 12-15-2019 FULL CODE VENICE HAILEY Start: 12-15-2019 INTAKE AND OUTPUT VENICE HAILEY Start: 12-15-2019 REASON FOR NO MECHANICAL VTE PROPHYLAXIS VENICE HAILEY Start: 12-15-2019 INITIATE OXYGEN THERAPY PROTOCOL VENICE HAILEY Start: 12-15-2019 TOBACCO CESSATION EDUCATION VENICE HAILEY Start: 12-15-2019 VITAL SIGNS VENICE HAILEY Start: 12-15-2019 COVID-19 VENICE CABALLERO Start: 12-15-2019 PATIENT STATUS (FROM ED OR OR/PROCEDURAL) VENICE CABALLERO Start: 12-15-2019 COVID-19 Trey Bloodmary Work Phone: Start: 12-15-2019 Ct abdomen & pelvis w/contrast material VENICE CABALLERO Start: 12-15-2019 Ct abdomen & pelvis w/contrast material Trey Greyson Work Phone: Start: 12-15-2019 Assay of lipase VENICE CABALLERO Start: 12-15-2019 Blood count complete auto&auto difrntl wbc VENICE CABALLERO Start: 12-15-2019 Comprehensive metabolic panel VENICE CABALLERO Start: 12-15-2019 Assay of lipase Trey Rubi Work Phone: Start: 12-15-2019 Blood count complete auto&auto difrntl wbc Trey Bloodmary Work Phone: Start: 12-15-2019 Comprehensive metabolic panel Trey Bloodmary Work Phone: Start: 07-29-2019 Drug screen quantitative [...] abdomen & pelvis w/contrast material Krishna A Li SOLORZANO Work Phone: Start: 07-23-2019 Comprehensive metabolic panel Krishna SOLORZANO Work Phone: Start: 07-23-2019 Urinalysis microscopic only Krishna SOLORZANO Work Phone: Start: 07-23-2019 Urnls dip stick/tablet rgnt auto w/o microscopy Krishna Luke Li SOLORZANO Work Phone: Start: 06-29-2016 End: 04-02-2024 H/O: section History of Nona Frantz LANGLEY Work Phone: Plan of Treatment Date Care Activity Detail Author Start: 04-10-2025 Urine screening for protein Diabetes: Urine Protein Screening [facility] Start: 12-03-2024 End: 12-03-2024 Patient encounter procedure 12/03/2024 3:00 PM EDT Office Visit [facility]ONY [facility] [address] [place] [address] Mela Santos PA [address] [place] [address] [facility]Y [facility] Start: 08-14-2024 End: 08-14-2024 Patient encounter procedure [facility] [place] [address] Comment on above: Arrived Start: 08-09-2024 End: 08-09-2024 Patient encounter procedure [facility] Comment on above: Arrived Start: 07-02-2024 Hemoglobin A1c measurement Diabetes: Hemoglobin A1C [facility] Start: 06-18-2024 End: 06-18-2024 Patient encounter procedure 06/18/2024 3:20 PM EST Office Visit [facility] [address] [place] [address] Marisa Bowers, SURGICAL SCRUB TECHNOLOGIST [address] [place] [address] [facility] [address] Start: 05-10-2024 End: 05-10-2024 Patient encounter procedure [facility] 230 Comment on above: Arrived Start: 05-08-2024 End: 05-08-2024 Patient encounter procedure 05/08/2024 9:20 AM EDT Office Visit [facility] [address] [place] [id number] Nona Landry DO [address] [place] [address] [facility] Start: 04-02-2024 End: 04-02-2025 25-hydroxyvitamin D3 [Mass/volume] in Serum or Plasma Vitamin D 25 hydroxy Total Lab Routine Vitamin D insufficiency Expected: 04/02/2024 (Approximate), Expires: 04/02/2025 [facility] Work Phone: Comment on above: Expected: 04/02/2024 (Approximate), Expires: 04/02/2025 Start: 04-02-2024 End: 04-02-2025 CBC W Auto Differential panel - Blood CBC and differential Lab Routine Type 2 diabetes mellitus with hypoglycemia without coma, without long-term current use of insulin ([facility]) Expected: 04/02/2024 (Approximate), Expires: 04/02/2025 [facility] Comment on above: Expected: 04/02/2024 (Approximate), Expires: 04/02/2025 Start: 04-02-2024 End: 04-02-2025 Cobalamin (Vitamin B12) [Mass/volume] in Serum or Plasma Vitamin B12 Lab Routine Dumping syndrome Encounter for vitamin deficiency screening History of gastric bypass Expected: 04/02/2024 (Approximate), Expires: 04/02/2025 [facility] Comment on above: Expected: 04/02/2024 (Approximate), Expires: 04/02/2025 Start: 04-02-2024 End: 04-02-2025 Comprehensive metabolic 2000 panel - Serum or Plasma Comprehensive metabolic panel Lab Routine Type 2 diabetes mellitus with hypoglycemia without coma, without long-term current use of insulin ([facility]) Expected: 04/02/2024 (Approximate), Expires: 04/02/2025 [facility] Comment on above: Expected: 04/02/2024 (Approximate), Expires: 04/02/2025 Start: 04-02-2024 End: 04-02-2025 Lipid 1996 panel - Serum or Plasma Lipid panel Lab Routine Type 2 diabetes mellitus with hypoglycemia without coma, without long-term current use of insulin ([facility]) Expected: 04/02/2024 (Approximate), Expires: 04/02/2025 [facility] Comment on above: Expected: 04/02/2024 (Approximate), Expires: 04/02/2025 Start: 04-02-2024 End: 04-02-2025 Thyrotropin [Units/volume] in Serum or Plasma Tsh+free t4 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[facility]) Expected: 04/02/2024 (Approximate), Expires: 04/02/2025 [facility] Comment on above: Expected: 04/02/2024 (Approximate), Expires: 04/02/2025 Start: 04-02-2024 End: 04-02-2024 Patient encounter procedure 04/02/2024 9:20 AM EDT Office Visit [facility] [address] [place] [phone] Nona Landry DO [address] [place] [address] Arrived [facility] Comment on above: Arrived Start: 03-25-2024 Influenza vaccination INFLUENZA VACC INE (#1) [facility] Start: 03-13-2024 End: 03-13-2025 Basic metabolic 1998 panel - Serum or Plasma Basic metabolic panel Lab Routine Seizure ([facility]) Expected: 03/13/2024 (Approximate), Expires: 03/13/2025 [facility] Work Phone: Comment on above: Expected: 03/13/2024 (Approximate), Expires: 03/13/2025 Start: 03-13-2024 End: 03-13-2025 Levetiracetam level Levetiracetam level Lab Routine Seizure (CMS/HCC) Expected: 03/13/2024 (Approximate), Expires: 03/13/2025 [facility] Comment on above: Expected: 03/13/2024 (Approximate), Expires: 03/13/2025 Start: 05-05-2023 End: 05-05-2023 Patient encounter procedure 05/05/2023 2:30 PM EDT Office Visit [facility] [address] [facility] [address] [place] [address] Tony Diane MD [address] [place] [phone] [facility] Start: 03-25-2023 COVID-19 VACCINE ( season) COVID-19 VACCINE ( season) [facility] Start: 03-25-2023 Influenza vaccination INFLUENZ A VACCINE (Season Ended) [facility] Start: 12-08-2022 End: 12-08-2022 Patient encounter procedure 12/08/2022 Office Visit Neurology Sanket Medina MD [address] [place] [address] [facility] [place] Start: 08-10-2022 End: 08-10-2022 Patient encounter procedure 08/10/2022 Office Visit Neurology Tony Diane MD [address] [place] [address] [facility] [place] Start: 03-25-2022 Influenza vaccination INFLUENZA VACC INE (#1) [facility] Start: 03-25-2020 Influenza vaccination Flu vacc ine (Season Ended) [place], [place] Start: 03-25-2019 Influenza vaccination Flu vaccine (# 1) [facility] [employer] Phone: Start: 2018 Screening for malign ant neoplasm of cervix [facility] Start: 2009 Cervical cancer screen Cervical canc er screen [facility] [employer] Phone: Start: 2009 Screening for malign ant neoplasm of cervix [facility] Start: 10-25-2007 DTaP/Tdap/Td vaccine (1 - Tdap) DTaP/Tdap/Td vaccine (1 - Tdap) [place], [place] Start: 10-25-2007 Hepatitis B vaccination HEP B VACCINE (1 of 3 - 19+ 3-dose series) [facility] Start: 10-25-2007 Third diphtheria, tetanus and acellular pertussis (DTaP) vaccination TDAP (ADULT) [facility] Start: 10-25-2007 Urine screening for protein Diabetes: Urine Protein Screening [facility] Start: 2006 Tetanus vaccination TETANUS [facility] Start: 10-25-2003 HIV screen HIV screen [facility] [employer] Phone: Start: 10-25-2003 HIV screening [facility] Start: 10-25-1999 DTaP/Tdap/Td vaccine (1 - Tdap) DTaP/Tdap/Td vaccine (1 - Tdap) [facility] [employer] Phone: Start: 1998 Glaucoma screening Diabetes: R etinopathy Screening [facility] Start: 1989 Varicella vaccine (1 of 2 - 2-dose childhood series) Varicella vaccine (1 of 2 - 2-dose childhood series) [facility] [employer] Phone: Start: 04-25-1989 COVID-19 VACCINE (#1) COVID-19 VACCI NE (#1) [facility] Start: 1988 Hepatitis C screening HEPATITI S C VIRUS SCREENING [facility] Start: 1988 Tetanus vaccination TETANUS [facility] EKG 12 Lead EKG 12 Lead ECG STAT 07/29/2019 2:25 PM [employer] Work Phone: Initiate Oxygen Ther apy Protocol [facility] [place] Comment on above: Daily until disconti nued starting 12/15/2019 Daily until disconti nued starting 01/04/2020 End: 07-29-2019 Levetiracetam Level Levetiracetam Level Lab STAT One Time for 1 Occurrences starting 07/29/2019 until 07/29/2019 [employer] Phone: Comment on above: One Time for 1 Occur rences starting 07/29/2019 until 07/29/2019 Levetiracetam Level Levetiraceta m Level Lab STAT 07/29/2019 3:45 PM [facility] [employer] Phone: Phase I & II - meter ed glucose Phase I & II - metered glucose Point of Care Testing Routine As Needed until discontinued starting 01/04/2020 [facility] [place] Comment on above: As Needed until disc ontinued starting 01/04/2020 Surgical Pathology Surgical Path ology Lab Routine Release Upon Ordering for 1 Occurrences starting 01/04/2020 [facility] [place] Comment on above: Release Upon Orderin g for 1 Occurrences starting 01/04/2020 End: 07-29-2019 Topiramate Level Topiramate Level Lab Routine One Time for 1 Occurrences starting 07/29/2019 until 07/29/2019 [employer] Phone: Comment on above: One Time for 1 Occur rences starting 07/29/2019 until 07/29/2019 Topiramate Level Topiramate Leve l Lab STAT 07/29/2019 3:45 PM [facility] [employer] Phone: Immunizations Immunization Date Immunization Notes Care Provider Fa [facility] 04-01-2023 influenza, injectabl e, quadrivalent, preservative free Marisaluke Bowers SURGICAL SCRUB TECHNOLOGIST Work Phone: [facility] 04-01-2023 varicella virus vaccine Marisa Bowers SURGICAL SCRUB TECHNOLOGIST Work Phone: [facility] 04-01-2023 influenza virus vaccine, unspecified formulation Jaquelin Schwab [facility] Work Phone: [facility] 04-29-2021 influenza virus vaccine, unspecified formulation Sanket Medina MD Work Phone: [facility] Payers Date Payer Category Payer Medicaid (Managed Care) [facility] MEDICAID [id number] 2022 Unknown [id number]. [id number] 2022 Medicaid [id number] 2021 Medicaid [id number] 2021 Private Health Insurance 2014 Private Health Insurance [facility] COMMUNITY PLAN xxxxxxxxx 2014-Present [phone] [address] [place] [address] xxxxxxxxx [id number] 2014 Private Health Insurance [id number] 1988 Unknown [id number] 2.16.840.1.243447.3.579.2. 173 1988 Unknown [id number] 2.16.840.1.777266.3.579.2. 175 1988 Unknown [id number] 2.16.840.1.640688.3.579.2. 175 1988 Unknown [id number] 2.16.840.1.563596.3.579.2. 196 1988 Unknown [id number] 2.16.840.1.247332.3.579.2. 594 1988 Unknown [id number] 2.16.840.1.260386.3.579.2. 594 1988 Unknown [id number] 2.16.840.1.511448.3.579.2. 196 1988 Unknown [id number] 2.16.840.1.911063.3.579.2. 196 1988 Unknown [id number] 2.16.840.1.515506.3.579.2. 196 1988 Unknown [id number] 2.16.840.1.117881.3.579.2. 196 1988 Unknown [id number] 2.16.840.1.563789.3.579.2. 196 1988 Unknown [id number] 2.16.840.1.586706.3.579.2. 196 1988 Unknown [id number] 2.16.840.1.748354.3.579.2. 196 1988 Unknown [id number] 2.16.840.1.386039.3.579.2. 727 1988 Unknown [id number] 2.16.840.1.139799.3.579.2. 727 1988 Unknown [id number] 2.16.840.1.931010.3.579.2. 1259 1988 Unknown [id number] 2.16.840.1.624092.3.579.2. 1259 1988 Unknown [id number] 2.16.840.1.234651.3.579.2. 1259 1988 Unknown [id number] 2.16.840.1.207825.3.579.2. 1259 1988 Unknown [id number] 2.16.840.1.838547.3.579.2. 1259 1988 Unknown [id number] 2.16.840.1.522975.3.579.2. 727 1988 Unknown [id number] 2.16.840.1.737784.3.579.2. 727 1988 Unknown [id number] 2.16.840.1.753496.3.579.2. 727 1988 Unknown [id number] 2.16.840.1.591205.3.579.2. 727 1988 Unknown [id number] 2.16.840.1.663803.3.579.2. 727 Social History Date Type Detail Facility Start: 12-18-2019 End: 03-09-2024 Tobacco smoking status PRIS Never smoker [facility] Phone: Start: 12-18-2019 End: 05-26-2022 Alcohol intake Ex-drinker (finding) [facility] Phone: Start: 07-23-2019 History SDOH Alcohol Frequency 1 [facility] Phone: Start: 1988 Sex Assigned At Not on file [facility] Phone: Exposure to SARS-CoV -2 (event) Unable to assess [facility] [place] Start: 01-04-2020 End: 08-14-2024 Alcohol intake Lifetime non-drinker (finding) [facility] [place] Start: 1988 Sex Assigned At Female [facility] [employer] Work Phone: Start: 12-29-2021 Tobacco smoking status PRIS Ex-smoker [facility] History of tobacco use Current smoker [facility] History of tobacco use Cigarette Smoker O [facility] Start: 12-29-2021 End: 03-09-2024 Tobacco use and exposure Smokeless tobacco non-user [facility] Start: 05-26-2022 End: 03-27-2024 History of Social function [facility] Start: 05-26-2022 End: 03-27-2024 Tobacco use panel [facility] Start: 09-12-2022 Gender identity Identifies as female gender (finding) [facility] How often do you nee d to have someone help you when you read instructions, pamphlets, or other written material from your doctor or pharmacy [SILS] Never [facility] Do you belong to any clubs or organizations such as baptism groups, unions, [employer]) or athletic groups, or school groups? No [...] smoking status No Smokin g Status Entered [facility] Goals Date Patient Goal Desired Activity /State Functional Status Date Assessment Result Facility 08-30-2024 Functional Status N/A [facility] 08-26-2024 Functional Status N/A [facility] 08-03-2024 Functional Status N/A [facility] 06-30-2024 Functional Status N/A [facility] Clinical Notes 07-23-2019 to 08-30-2024 Telephone Encounter - Nona Landry DO - 08/30/2024 2:49 PM ESTTelephone Encounter - Nona Landry DO - 08/30/2024 2:49 PM Marissa Landry, DO - 08/09/2024 3:20 PM EST Note Date & Type Note Facility 08-30-2024 Hospital Discharg e instructions Patient Education 08/30/2024 18:13:24 Lumbosacral Strain Lumbosacral Strain A lumbosacral strain is an injury that causes pain in the lower back (lumbosacral spine). This injury usually happens from overstretching the muscles or ligaments along the spine. Ligaments are cord-like tissues that connect bones to each other. A strain can affect one or more muscles or ligaments. What are the causes? This condition may be caused by: A hard, direct hit to the back. Overstretching the lower back muscles. This may result from: ?A fall. ?Lifting something heavy. ?Repeated movements such as bending or crouching. What increases the risk? The following factors make you more likely to have a lumbosacral strain: Taking part in sports or activities that involve: ?A sudden twist of the back. ?Pushing or pulling motions. Being overweight or obese. Having poor strength and flexibility, especially tight hamstrings or weak muscles in the back or abdomen. Having too much of a curve in the lower back. Having a pelvis that is tilted forward. What are the signs or symptoms? The main symptom of this condition is pain in the lower back, at the site of the strain. Pain may also be felt down one or both legs. How is this diagnosed? This condition is diagnosed based on: Your symptoms and medical history. A physical exam. During the exam: ?Your health care provider may push on certain areas of your back to find the source of your pain. ?You may be asked to bend forward, backward, and side to side to check your pain and range of motion. You may also have imaging tests, such as X-rays and an MRI. How is this treated? This condition may be treated by: Applying heat and cold to the affected area. Taking medicines for pain and to relax your muscles. Taking NSAIDs, such as ibuprofen, to help reduce swelling and discomfort. Doing stretching and strengthening exercises for your lower back. Symptoms usually improve within several weeks of treatment. But recovery time varies. When your symptoms improve, gradually return to your normal routine as soon as possible. This will help reduce pain, avoid stiffness, and keep muscle strength. Follow these instructions at home: Medicines Take eetf-hgo-sqzjfgt and prescription medicines only as told by your health care provider. Ask your health care provider if the medicine prescribed to you: ?Requires you to avoid driving or using machinery. ?Can cause constipation. You may need to take these actions to prevent or treat constipation: ?Drink enough fluid to keep your urine pale yellow. ?Take nbwg-pwg-gjjgpkz or prescription medicines. ?Eat foods that are high in fiber, such as beans, whole grains, and fresh fruits and vegetables. ?Limit foods that are high in fat and processed sugars, such as fried or sweet foods. Managing pain, stiffness, and swelling If told, put ice on the injured area. ?Put ice in a plastic bag. ?Place a towel between your skin and the bag. ?Leave the ice on for 20 minutes, 2 3 times a day. If told, apply heat to the affected area as often as told by your health care provider. Use the heat source that your health care provider recommends, such as a moist heat pack or a heating pad. ?Place a towel between your skin and the heat source. ?Leave the heat on for 20 30 minutes. If your skin turns bright red, remove the heat or ice right away to prevent skin damage. The risk of damage is higher if you cannot feel pain, heat, or cold. Activity Rest as told by your health care provider. Do not stay in bed. Staying in bed for more than 1 2 days can delay your recovery. Return to your normal activities as told by your health care provider. Ask your health care provider what activities are safe for you. Avoid activities that take a lot of energy for as long as told by your health care provider. Do exercises as told by your health care provider. This includes stretching and strengthening exercises. General instructions Use good posture when sitting and standing. Avoid leaning forward when you sit, and avoid hunching over when you stand. Do not use any products that contain nicotine or tobacco. These products include cigarettes, chewing tobacco, and vaping devices, such as e-cigarettes. If you need help quitting, ask your health care provider. How is this prevented? Warm up properly before physical activity, and cool down and stretch after being active. Use correct form when playing sports. Bend your knees and use correct posture when lifting heavy objects. Maintain a healthy weight. Sleep on a mattress with medium firmness to support your back. Do at least 150 minutes of moderate-intensity exercise each week, such as brisk walking or water aerobics. Try a form of exercise that takes stress off your back, such as swimming or stationary cycling. Maintain physical fitness, including: ?Strength. ?Flexibility. Contact a health care provider if: Your back pain does not improve after several weeks of treatment. Your symptoms get worse. You have a fever. Get help right away if: Your back pain is severe. You cannot stand or walk. You feel nauseous or you vomit. You develop any of the following: ?Trouble controlling when you urinate or when you have a bowel movement. ?Pain in your legs. ?Your feet or legs get very cold, turn pale, or look blue. ?Weakness in your buttocks or legs. This information is not intended to replace advice given to you by your health care provider. Make sure you discuss any questions you have with your health care provider. Document Revised: 02/01/2023 Document Reviewed: 02/01/2023 [employer] Patient Education 2023 [employer]. Follow Up Care 08/30/2024 16:07:20 With:NONA LANDRY Address: [address] [place], [place] [address] [address]- [phone] Business (1) When:09/02/2024 18:07:18 [facility] 08-30-2024 Note ED Patient Education Note Orthopedics Lumbosacral Strain A lumbosacral strain is an injury that causes pain in the lower back (lumbosacral spine). This injury usually happens from overstretching the muscles or ligaments along the spine. Ligaments are cord-like tissues that connect bones to each other. A strain can affect one or more muscles or ligaments. What are the causes? This condition may be caused by: ??? A hard, direct hit to the back. ??? Overstretching the lower back muscles. This may result from: ? A fall. ? Lifting something heavy. ? Repeated movements such as bending or crouching. What increases the risk? The following factors make you more likely to have a lumbosacral strain: ??? Taking part in sports or activities that involve: ? A sudden twist of the back. ? Pushing or pulling motions. ??? Being overweight or obese. ??? Having poor strength and flexibility, especially tight hamstrings or weak muscles in the back or abdomen. ??? Having too much of a curve in the lower back. ??? Having a pelvis that is tilted forward. What are the signs or symptoms? The main symptom of this condition is pain in the lower back, at the site of the strain. Pain may also be felt down one or both legs. How is this diagnosed? This condition is diagnosed based on: ??? Your symptoms and medical history. ??? A physical exam. During the exam: ? Your health care provider may push on certain areas of your back to find the source of your pain. ? You may be asked to bend forward, backward, and side to side to check your pain and range of motion. You may also have imaging tests, such as X-rays and an MRI. How is this treated? This condition may be treated by: ??? Applying heat and cold to the affected area. ??? Taking medicines for pain and to relax your muscles. ??? Taking NSAIDs, such as ibuprofen, to help reduce swelling and discomfort. ??? Doing stretching and strengthening exercises for your lower back. Symptoms usually improve within several weeks of treatment. But recovery time varies. When your symptoms improve, gradually return to your normal routine as soon as possible. This will help reduce pain, avoid stiffness, and keep muscle strength. Follow these instructions at home: Medicines ??? Take igjd-lwi-rsjdxys and prescription medicines only as told by your health care provider. ??? Ask your health care provider if the medicine prescribed to you: ? Requires you to avoid driving or using machinery. ? Can cause constipation. You may need to take these actions to prevent or treat constipation: ? Drink enough fluid to keep your urine pale yellow. ? Take xbdi-nay-dmsirrq or prescription medicines. ? Eat foods that are high in fiber, such as beans, whole grains, and fresh fruits and vegetables. ? Limit foods that are high in fat and processed sugars, such as fried or sweet foods. Managing pain, stiffness, and swelling ??? If told, put ice on the injured area. ? Put ice in a plastic bag. ? Place a towel between your skin and the bag. ? Leave the ice on for 20 minutes, 2?3 times a day. ??? If told, apply heat to the affected area as often as told by your health care provider. Use the heat source that your health care provider recommends, such as a moist heat pack or a heating pad. ? Place a towel between your skin and the heat source. ? Leave the heat on for 20?30 minutes. ??? If your skin turns bright red, remove the heat or ice right away to prevent skin damage. The risk of damage is higher if you cannot feel pain, heat, or cold. Activity ??? Rest as told by your health care provider. ??? Do not stay in bed. Staying in bed for more than 1?2 days can delay your recovery. ??? Return to your normal activities as told by your health care provider. Ask your health care provider what activities are safe for you. ??? Avoid activities that take a lot of energy for as long as told by your health care provider. ??? Do exercises as told by your health care provider. This includes stretching and strengthening exercises. General instructions ??? Use good posture when sitting and standing. Avoid leaning forward when you sit, and avoid hunching over when you stand. ??? Do not use any products that contain nicotine or tobacco. These products include cigarettes, chewing tobacco, and vaping devices, such as e-cigarettes. If you need help quitting, ask your health care provider. How is this prevented? Warm up properly before physical activity, and cool down and stretch after being active. ??? Use correct form when playing sports. Bend your knees and use correct posture when lifting heavy objects. ??? Maintain a healthy weight. ??? Sleep on a mattress with medium firmness to support your back. ??? Do at least 150 min (more content not included)... [facility] 08-30-2024 Telephone encounter Note Pt needs to switch to Lilliamity, please let her know I sent equivalent dose to the pharmacy [facility] 08-30-2024 Miscellaneous Notes Pt needs to switch to Trmelodyity, please let her know I sent equivalent dose to the pharmacy documented in this encounter [facility] 08-26-2024 Hospital Discharg e instructions Patient Education 08/26/2024 08:20:45 Sinus Infection, Adult Sinus Infection, Adult A sinus infection, also called sinusitis, is inflammation of your sinuses. Sinuses are hollow spaces in the bones around your face. Your sinuses are located: Around your eyes. In the middle of your forehead. Behind your nose. In your cheekbones. Mucus normally drains out of your sinuses. When your nasal tissues become inflamed or swollen, mucus can become trapped or blocked. This allows bacteria, viruses, and fungi to grow, which leads to infection. Most infections of the sinuses are caused by a virus. A sinus infection can develop quickly. It can last for up to 4 weeks (acute) or for more than 12 weeks (chronic). A sinus infection often develops after a cold. What are the causes? This condition is caused by anything that creates swelling in the sinuses or stops mucus from draining. This includes: Allergies. Asthma. Infection from bacteria or viruses. Deformities or blockages in your nose or sinuses. Abnormal growths in the nose (nasal polyps). Pollutants, such as chemicals or irritants in the air. Infection from fungi. This is rare. What increases the risk? You are more likely to develop this condition if you: Have a weak body defense system (immune system). Do a lot of swimming or diving. Overuse nasal sprays. Smoke. What are the signs or symptoms? The main symptoms of this condition are pain and a feeling of pressure around the affected sinuses. Other symptoms include: Stuffy nose or congestion that makes it difficult to breathe through your nose. Thick yellow or greenish drainage from your nose. Tenderness, swelling, and warmth over the affected sinuses. A cough that may get worse at night. Decreased sense of smell and taste. Extra mucus that collects in the throat or the back of the nose (postnasal drip) causing a sore throat or bad breath. Tiredness (fatigue). Fever. How is this diagnosed? This condition is diagnosed based on: Your symptoms. Your medical history. A physical exam. Tests to find out if your condition is acute or chronic. This may include: ?Checking your nose for nasal polyps. ?Viewing your sinuses using a device that has a light (endoscope). ?Testing for allergies or bacteria. ?Imaging tests, such as an MRI or CT scan. In rare cases, a bone biopsy may be done to rule out more serious types of fungal sinus disease. How is this treated? Treatment for a sinus infection depends on the cause and whether your condition is chronic or acute. If caused by a virus, your symptoms should go away on their own within 10 days. You may be given medicines to relieve symptoms. They include: ?Medicines that shrink swollen nasal passages (decongestants). ?A spray that eases inflammation of the nostrils (topical intranasal corticosteroids). ?Rinses that help get rid of thick mucus in your nose (nasal saline washes). ?Medicines that treat allergies (antihistamines). ?Wudf-gwa-tkyfuap pain relievers. If caused by bacteria, your health care provider may recommend waiting to see if your symptoms improve. Most bacterial infections will get better without antibiotic medicine. You may be given antibiotics if you have: ?A severe infection. ?A weak immune system. If caused by narrow nasal passages or nasal polyps, surgery may be needed. Follow these instructions at home: Medicines Take, use, or apply lvtj-nxw-izuuxyi and prescription medicines only as told by your health care provider. These may include nasal sprays. If you were prescribed an antibiotic medicine, take it as told by your health care provider. Do not stop taking the antibiotic even if you start to feel better. Hydrate and humidify Drink enough fluid to keep your urine pale yellow. Staying hydrated will help to thin your mucus. Use a cool mist humidifier to keep the humidity level in your home above 50%. Inhale steam for 10 15 minutes, 3 4 times a day, or as told by your health care provider. You can do this in the bathroom while a hot shower is running. Limit your exposure to cool or dry air. Rest Rest as much as possible. Sleep with your head raised (elevated). Make sure you get enough sleep each night. General instructions Apply a warm, moist washcloth to your face 3 4 times a day or as told by your health care provider. This will help with discomfort. Use nasal saline washes as often as told by your health care provider. Wash your hands often with soap and water to reduce your exposure to germs. If soap and water are not available, use hand land acquisition analyst. Do not smoke. Avoid being around people who are smoking (secondhand smoke). Keep all follow-up visits. This is important. Contact a health care provider if: You have a fever. Your symptoms get worse. Your symptoms do not improve within 10 days. Get help right away if: You have a severe headache. You have persistent vomiting. You have severe pain or swelling around your face or eyes. You have vision problems. You develop confusion. Your neck is stiff. You have trouble breathing. These symptoms may be an emergency. Get help right away. Call 911. Do not wait to see if the symptoms will go away. Do not drive yourself to the hospital. Summary A sinus infection is soreness and inflammation of your sinuses. Sinuses are hollow spaces in the bones around your face. This condition is caused by nasal tissues that become inflamed or swollen. The swelling traps or blocks the flow of mucus. This allows bacteria, viruses, and fungi to grow, which leads to infection. If you were prescribed an antibiotic medicine, take it as told by your health care provider. Do not stop taking the antibiotic even if you start to feel better. Keep all follow-up visits. This is important. This information is not intended to replace advice given to you by your health care provider. Make sure you discuss any questions you have with your health care provider. Document Revised: 06/15/2022 Document Reviewed: 06/15/2022 [employer] Patient Education 2023 [employer]. Follow Up Care 08/26/2024 07:49:59 With:NONA LANDRY Address: [address] [place] [address] [phone] Business (1) When:08/29/2024 08:16:33 [facility] 08-26-2024 Note ED Patient Education Note Infectious Disease Sinus Infection, Adult A sinus infection, also called sinusitis, is inflammation of your sinuses. Sinuses are hollow spaces in the bones around your face. Your sinuses are located: ??? Around your eyes. ??? In the middle of your forehead. ??? Behind your nose. ??? In your cheekbones. Mucus normally drains out of your sinuses. When your nasal tissues become inflamed or swollen, mucus can become trapped or blocked. This allows bacteria, viruses, and fungi to grow, which leads to infection. Most infections of the sinuses are caused by a virus. A sinus infection can develop quickly. It can last for up to 4 weeks (acute) or for more than 12 weeks (chronic). A sinus infection often develops after a cold. What are the causes? This condition is caused by anything that creates swelling in the sinuses or stops mucus from draining. This includes: ??? Allergies. ??? Asthma. ??? Infection from bacteria or viruses. ??? Deformities or blockages in your nose or sinuses. ??? Abnormal growths in the nose (nasal polyps). ??? Pollutants, such as chemicals or irritants in the air. ??? Infection from fungi. This is rare. What increases the risk? You are more likely to develop this condition if you: ??? Have a weak body defense system (immune system). ??? Do a lot of swimming or diving. ??? Overuse nasal sprays. ??? Smoke. What are the signs or symptoms? The main symptoms of this condition are pain and a feeling of pressure around the affected sinuses. Other symptoms include: ??? Stuffy nose or congestion that makes it difficult to breathe through your nose. ??? Thick yellow or greenish drainage from your nose. ??? Tenderness, swelling, and warmth over the affected sinuses. ??? A cough that may get worse at night. ??? Decreased sense of smell and taste. ??? Extra mucus that collects in the throat or the back of the nose (postnasal drip) causing a sore throat or bad breath. ??? Tiredness (fatigue). ??? Fever. How is this diagnosed? This condition is diagnosed based on: ??? Your symptoms. ??? Your medical history. ??? A physical exam. ??? Tests to find out if your condition is acute or chronic. This may include: ? Checking your nose for nasal polyps. ? Viewing your sinuses using a device that has a light (endoscope). ? Testing for allergies or bacteria. ? Imaging tests, such as an MRI or CT scan. In rare cases, a bone biopsy may be done to rule out more serious types of fungal sinus disease. How is this treated? Treatment for a sinus infection depends on the cause and whether your condition is chronic or acute. ??? If caused by a virus, your symptoms should go away on their own within 10 days. You may be given medicines to relieve symptoms. They include: ? Medicines that shrink swollen nasal passages (decongestants). ? A spray that eases inflammation of the nostrils (topical intranasal corticosteroids). ? Rinses that help get rid of thick mucus in your nose (nasal saline washes). ? Medicines that treat allergies (antihistamines). ? Krgy-mqe-dkravub pain relievers. ??? If caused by bacteria, your health care provider may recommend waiting to see if your symptoms improve. Most bacterial infections will get better without antibiotic medicine. You may be given antibiotics if you have: ? A severe infection. ? A weak immune system. ??? If caused by narrow nasal passages or nasal polyps, surgery may be needed. Follow these instructions at home: Medicines ??? Take, use, or apply suky-abx-qmulztl and prescription medicines only as told by your health care provider. These may include nasal sprays. ??? If you were prescribed an antibiotic medicine, take it as told by your health care provider. Do not stop taking the antibiotic even if you start to feel better. Hydrate and humidify ??? Drink enough fluid to keep your urine pale yellow. Staying hydrated will help to thin your mucus. ??? Use a cool mist humidifier to keep the humidity level in your home above 50%. ??? Inhale steam for 10?15 minutes, 3?4 times a day, or as told by your health care provider. You can do this in the bathroom while a hot shower is running. ??? Limit your exposure to cool or dry air. Rest ??? Rest as much as possible. ??? Sleep with your head raised (elevated). ??? Make sure you get enough sleep each night. General instructions ??? Apply a warm, moist washcloth to your face 3?4 times a day or as told by your health care provider. This will help with discomfort. ??? Use nasal saline washes as often as told by your health care provider. ??? Wash your hands often with soap and water to reduce your exposure to germs. If soap and water are not available, use hand land acquisition analyst. ??? Do not smoke. Avoid being around people who are smoking (secondhand smoke). ??? Keep all fo (more content not included)... [facility] 08-09-2024 History of Presen t illness Narrative Images from the original note were not included. [facility] SUBJECTIVE: HPI: Rachid Mojica is a 33 y.o. female who presents with chief complaint of No chief complaint on file. Pt presents for her 3 month follow up. Pt notes that she is doing well at this time but has been fighting an URI. Pt was on an abx for this and feels that it worked slightly. No other concerns at this time. I have reviewed and reconciled the history and medication list with the patient today. History of Present Illness The patient is a 33-year-old female who presents for evaluation of hypoglycemia and cough. She reports a significant improvement in her blood glucose levels, with the lowest recorded value being in the 60s prior to her illness. Following the initiation of antibiotic therapy, she experienced a drop to the 50s. However, her blood glucose levels have consistently remained above 70. She has been managing her condition with sample medications as she encountered difficulties in obtaining them from the pharmacy. She recently received a new supply last week. She continues to experience symptoms of illness, including the production of green phlegm. She also reports discomfort in her ears, which she attributes to drainage. She was prescribed Augmentin at the ER, and today chamorro the completion of her treatment course. MEDICATIONS Current: Ozempic, Augmentin. Depression: Not at risk (04/02/2024) PHQ-2 PHQ-2 Score: 0 reports that she has never smoked. She has never used smokeless tobacco. She reports that she does not drink alcohol and does not use drugs. OBJECTIVE: 03/13/2024 1:27 PM 04/02/2024 9:29 AM 05/10/2024 3:37 PM 08/09/2024 3:47 PM Vitals BMI 29.72 kg/m2 29.35 kg/m2 28.29 kg/m2 BSA (m2) 1.93 m2 1.92 m2 1.88 m2 Systolic 104 126 112 122 Diastolic 60 74 70 78 Heart Rate 92 90 95 SpO2 97 % 98 % 98 % Temp 97.2 F 97.8 F 97.4 F Height (in) 5' 5 5' 5 5' 5 Weight (lb) 178 178.6 176.4 170 Visit Report Report Report Report Report Physical Exam Constitutional: [...] Content: Thought content normal. Judgment: Judgment normal. Physical Exam Results Laboratory Studies Blood sugar levels have been above 70, with the lowest recorded being in the 60s. Recent Results (from the past 4 weeks) ALL BASIC METABOLIC PANEL Collection Time: 08/06/24 9:33 AM Result Value Ref Range SODIUM 143 136 - 145 mmol/L POTASSIUM 4.3 3.5 - 5.1 mmol/L CHLORIDE 105 98 - 107 mmol/L CARBON DIOXIDE 30.4 21.0 - 32.0 mmol/L ANION GAP 11.9 GLUCOSE 88 74 - 106 mg/dL BLOOD UREA NITROGEN 5.0 (L) 7.0 - 18.0 mg/dL CREATININE 0.81 0.55 - 1.02 mg/dL [facility] EGFR-AF ARMENIAN >60 >=60 mL/min/1.73m 2 [facility] EGFR-NON AF ARMENIAN >60 >=60 mL/min/1.73m 2 BUN CREATININE RATIO 6.2 CALCIUM 9.0 8.5 - 10.1 mg/dL [facility] LEVETIRACETAM Collection Time: 08/06/24 9:33 AM Result Value Ref Range LEVETIRACETAM (KEPPRA), S 25.7 10.0 - 40.0 ug/mL ASSESSMENT AND PLAN: Assessment/Plan Diagnoses and all orders for this visit: History of gastric bypass Type 2 diabetes mellitus with hypoglycemia without coma, without long-term current use of insulin ([facility]) - Semaglutide,0.25 or 0.5MG/DOS, (Ozempic, 0.25 or 0.5 MG/DOSE,) 2 MG/3ML solution pen-injector; Inject 0.5 mg under the skin 1 (one) time per week Dumping syndrome - Semaglutide,0.25 or 0.5MG/DOS, (Ozempic, 0.25 or 0.5 MG/DOSE,) 2 MG/3ML solution pen-injector; Inject 0.5 mg under the skin 1 (one) time per week Assessment & Plan 1. Hypoglycemia. Her blood glucose levels have shown significant improvement, consistently remaining above 70. A prior authorization for Ozempic has been resubmitted. She is advised to continue with the current treatment plan. If there are any issues obtaining the medication, she should inform the office. 2. Cough. She reports coughing up green phlegm. She was prescribed Augmentin (amoxicillin with clavulanic acid) by the ER, and today is her last day on the medication. She is advised to monitor her symptoms over the next few days. If there is no improvement by the beginning of next week, she should contact the office for further evaluation. Follow-up The patient will follow up in 6 months. 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[facility]) History of gastric bypass Hypoglycemia Celiac disease ([facility]) Migraine without aura and without status migrainosus, not intractable ([facility]) PCOS (polycystic ovarian syndrome) Reactive hypoglycemia Seizures ([facility]) Vitamin D insufficiency Past Medical History: Diagnosis Date ADHD (attention deficit hyperactivity disorder) ([facility]) Allergic Anemia Anxiety Cervical radiculitis 08/11/2021 Added automatically from request for surgery [id number] Cervical shortening affecting 07/21/2016 Cervical spondylosis without myelopathy 01/28/2021 Cervicalgia 01/28/2021 Disease of thyroid gland ([facility]) 2007 Gastrojejunal ulcer 01/21/2020 History of hysterectomy 01/29/2021 Menorrhagia with irregular cycle 04/02/2024 Migraine ([facility]/HCC) 2006 SAH (subarachnoid hemorrhage) ([facility]) 12/08/2021 Seizures ([facility]) 2004 documented in this encounter [facility] 08-03-2024 Evaluation + Plan note Extrac britton from: Title:ED Note Author:JessieDaryn hammond DO Date:07/25 Sinusitis (J32.9: Chronic si nusitis, unspecified) Orders: amoxicillin-clavulanate, 1 tab(s), Oral, BID for 7 day(s), 14 tab(s), Refill(s) 0, [id number], 165, cm, 08/03/24 7:43:00 EST, Height/Length Dosing, 75.1, kg, 08/03/24 7:43:00 EST, Weight Dosing fluticasone nasal, 1 spray(s), Nasal, BID for 7 day(s), 16 gm, Refill(s) 0, each nostril, [id number], 165, cm, 08/03/24 7:43:00 EST, Height/Length Dosing, 75.1, kg, 08/03/24 7:43:00 EST, Weight Dosing [facility] 01-10-2025 Hospital Discharge instructions Follow Up Care 08/03/2024 07:35:11 With:NONA LANDRY Address: [address] [place] [phone] Business (1) When:Within 3 Day(s) [facility] 12-07-2024 Hospital Discharge instructions Patient Education 06/30/2024 18:22:37 Nausea and Vomiting, Adult, Miyc-pz-Ezra Nausea and Vomiting, Adult Nausea is feeling [...] fruit juice). ?Low-calorie sports drinks. Eat bland, tndl-od-rsjsup foods in small amounts as you are able, such as: ?Bananas. ?Applesauce. ?Rice. ?Low-fat (lean) meats. ?Gonzales. ?Crackers. Avoid drinking fluids that have a lot of sugar or caffeine in them. This includes energy drinks, sports drinks, and soda. Avoid alcohol. Avoid spicy or fatty foods. General instructions Take vvhf-bgn-mwjdicf and prescription medicines only as told by your doctor. Drink enough fluid to keep your pee (urine) pale yellow. Wash your hands often with soap and water for at least 20 seconds. If you cannot use soap and water, use hand land acquisition analyst. Make sure that everyone in your home [...] your doctor about eating and drinking. Take czzc-ybq-bhezcbf and prescription medicines only as told by your doctor. Contact your doctor if your symptoms get worse or you have new symptoms. Keep all follow-up visits. This information is not intended to replace advice given to you by your health care provider. Make sure you discuss any questions you have with your health care provider. Document Revised: 01/15/2022 Document Reviewed: 01/15/2022 [employer] Patient Education 2023 [employer]. Follow Up Care 06/30/2024 16:57:21 With:NONA LANDRY Address: [address] [address] [phone] Business (1) When:07/03/2024 18:22:18 Comments:Call to schedule a follow-up appointment with your family physician in the next 2 to 3 days. Use the Phenergan as needed for nausea. Return to the ED with any new or worsening symptoms. [facility] 12-07-2024 NoteED Patient Education Note Gastroenterology Nausea and Vomiting, [...] ? Low-calorie sports drinks. ??? Eat bland, sacy-jv-qaglkz foods in small amounts as you are able, such as: ? Bananas. ? Applesauce. ? Rice. ? Low-fat (lean) meats. ? Gonzales. ? Crackers. ??? Avoid drinking fluids that have a lot of sugar or caffeine in them. This includes energy drinks, sports drinks, and soda. ??? Avoid alcohol. ??? Avoid spicy or fatty foods. General instructions ??? Take wxjh-rfw-bagffwr and prescription medicines only as told by your doctor. ??? Drink enough fluid to keep your pee (urine) pale yellow. ??? Wash your hands often with soap and water for at least 20 seconds. If you cannot use soap and water, use hand land acquisition analyst. ??? Make sure that everyone in your [...] doctor about eating and drinking. ??? Take vwgg-ykt-nwcgoyz and prescription medicines only as told by your doctor. ??? Contact your doctor if your symptoms get worse or you have new symptoms. ??? Keep all follow-up visits. This information is not intended to replace advice given to you by your health care provider. Make sure you discuss any questions you have with your health care provider. Document Revised: 01/15/2022 Document Reviewed: 01/15/2022 Elsevier Patient Education ? 2023 [employer].[facility] 05-10-2024 History of Present illness Narrative* Nona Landry, DO - 05/10/2024 4:00 PM EDT Images from the original note were not [...] of insulin ([facility]) Reactive hypoglycemia Dumping syndrome Attention deficit hyperactivity disorder (ADHD), unspecified ADHD type ([facility]/HCC) Mild episode of recurrent major depressive disorder (HCC) ([facility]) - mirtazapine (Remeron) 30 MG tablet; Take 1 tablet (30 mg) by mouth at bedtime Sample of ozempic given today, she will notify me on progress avoiding high and low BP 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[facility]/HCC) History of gastric bypass Hypoglycemia Celiac disease ([facility]) Migraine without aura and without status migrainosus, not intractable ([facility]) PCOS (polycystic ovarian syndrome) Reactive hypoglycemia Seizures ([facility]) Vitamin D insufficiency Past Medical History: Diagnosis Date ADHD (attention deficit hyperactivity disorder) ([facility]) Cervical radiculitis 08/11/2021 Added automatically from request for surgery [id number] Cervical shortening affecting 07/21/2016 Cervical spondylosis without myelopathy 01/28/2021 Cervicalgia 01/28/2021 Gastrojejunal ulcer 01/21/2020 History of hysterectomy 01/29/2021 Menorrhagia with irregular cycle 04/02/2024 Migraine ([facility]) 2005 SAH (subarachnoid hemorrhage) ([facility]) 12/08/2021 Seizures ([facility]) 2004 documented in this encounterSaint [facility] [id number] History of Present illness Narrative* Nona Landry DO - 04/02/2024 9:20 AM EDT Images from the original note were not included. SUBJECTIVE: HPI: Rachid Mojica is a 33 y.o. female who presents with chief complaint of Establish Care Pt states she is here to establish care. Pt states she has blood sugar issues. Pt states that sinceshe has a full bypass done her blood sugar will spike up to 300 or go down so low her meter wouldn't read it would just say low. Pt states she use to have a Dexcom and glucometer. Pt state that thelast 6 month she has gained 40 lbs. 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[facility]) History of gastric bypass Hypoglycemia Celiac disease ([facility]) Migraine without aura and without status migrainosus, not intractable ([facility]) PCOS (polycystic ovarian syndrome) Reactive hypoglycemia Seizures ([facility]) Vitamin D insufficiency Past Medical History: Diagnosis Date ADHD (attention deficit hyperactivity disorder) ([facility]) Cervical radiculitis 08/11/2021 Added automatically from request for surgery [id number] Cervical shortening affecting 07/21/2016 Cervical spondylosis without myelopathy 01/28/2021 Cervicalgia 01/28/2021 Gastrojejunal ulcer 01/21/2020 History of hysterectomy 01/29/2021 Menorrhagia with irregular cycle 04/02/2024 Migraine ([facility]) 2005 SAH (subarachnoid hemorrhage) ([facility]) 12/08/2021 Seizures ([facility]) 2004 documented in this encounterSaint Louis [facility] [id number] Telephone encounter Note* Telephone Encounter - Marisa Bowers NP - 03/14/2024 8:50 AM EDT We will try Nurtec. Sent to the pharmacy. Patient notified via phone message. [facility] [id number] Miscellaneous Notes* Telephone Encounter - Marisa Bowers NP - 03/14/2024 8:50 AM EDT We will try Nurtec. Sent to the pharmacy. Patient notified via phone message. * Telephone Encounter - Bing Britt MA - 03/14/2024 8:44 AM EDT Ubrelvy denied for the following reason: Coverage is provided when the member has a history of at least 14 days of therapy with at least onepreferred oral CGRP antagonist (type of medication used to treat migraine), Nurtec ODT (oral disintegrating tablet) (which requires step therapy of at least 14 days of therapy of two preferred medications). The [employer] Policy for Medical Necessity as posted on the [facility] website and [facility] Preferred Drug List criteria were reviewed and per [place] Administrative Code Rule 5160-1-01 (C) [id number] (B), a medically necessary service must include: generally accepted standards of medicalpractice, be clinically appropriate in administration, treatment and outcome and be the lowest costalternative to effectively treat the condition. Please contact your provider to assist you with other treatment options that might be covered under your benefit package, or other services that might be available through the community. documented in this encounterSaint Louis University Health Science [id number] Telephone encounter Note* Telephone Encounter - Bing Britt MA - 03/14/2024 8:44 AM EDT Ubrelvy denied for the following reason: Coverage is provided when the member has a history of at least 14 days of therapy with at least onepreferred oral CGRP antagonist (type of medication used to treat migraine), Nurtec ODT (oral disintegrating tablet) (which requires step therapy of at least 14 days of therapy of two preferred medications). The [employer] Policy for Medical Necessity as posted on the [facility] website and [facility] Preferred Drug List criteria were reviewed and per [place] Administrative Code Rule 5160-1-01 (C) [id number] (B), a medically necessary service must include: generally accepted standards of medicalpractice, be clinically appropriate in administration, treatment and outcome and be the lowest costalternative to effectively treat the condition. Please contact your provider to assist you with other treatment options that might be covered under your benefit package, or other services that might be available through the community. [facility] [id number] History of Present illness Narrative* Marisa Bowers NP - 03/13/2024 1:20 PM EDT Images from the original note were not included. Subjective Rachid Mojica is a 33 y.o. year old female No chief complaint on file. Past Medical History: Diagnosis Date ADHD (attention deficit hyperactivity disorder) (CMS/HCC) Migraine (CMS/HCC) 2006 Seizures (CMS/HCC) 2004 Past [...] (Vitamin D3) 25 MCG (1000 UT) tablet 10147080 Historical ProviderMD Active dexmethylphenidate XR (Focalin XR) 10 MG 24 hr capsule [id number] Take 20 mg by mouth Daily Historical ProviderMD Active gabapentin (Neurontin) 200 mg split tablet [id number] Take 200 mg by mouth Daily Historical ProviderMD Active levETIRAcetam (Keppra) 500 MG tablet [id number] Take 500 mg by mouth in the morning and 500 mg beforebedtime. Marisa Bowers NP Active Discontinued 03/13/24 1325 methylphenidate (Ritalin) 10 MG tablet [id number] Historical ProviderMD Active mirtazapine (Remeron) 30 MG tablet [id number] Historical ProviderMD Active HPI HPI Patient is a 33-year-old female with medical history of gastric bypass surgery in 2012 (lost 230 lbs), chronic back pain, migraines, ADHD and seizures. She is on Keppra 500 mg 1-1/2 tablets twice a day. In November of 2021 she presented to [facility] with a severe headache and vomiting. Earlier that day she received a nerve block for neck pain. Per chart review her and her significant other was arguing with the headache started. She started acting abnormally. She developed a severe frontal headache radiating to the back of her head. She fell 1 week prior with bruising to both of herknees but did not report a head injury at that time. Patient was found to have a subarachnoid hemorrhage in bilateral frontal areas that was very subtle. Right more than the left. [facility] for a leaking [facility]. [...] stopped breathing. Her lips have turned blue, shedrools. She has bitten her tongue but does not recall incontinence. The seizures generally last 2-3minutes. She denies warning signs. Afterwards she is tired and confused. It takes her about a day to be back to her normal self. Her brother has seizures. She was Depakote in the past. She used to follow with neurology in [place] and she followed up at [facility]. Her last appointment at [facility] was last year. Her Keppra was increased during the above hospitalization to 750mg BID. She denies any further events since then. She denies side effects of the medications. She states she had an ambulatory EEG in 2021 that was normal. This was done through [facility] in [place]. She was seen at the [facility] on 02/28/2024 with worsening neck and back [...] in upper and lower extremities. Coordination Right: Yzujgg-wc-bnik normal. Rapid alternating movement normal.Left: Iicrin-lg-bwfm normal. Rapid alternating movement normal. Gait Casual gait is normal including stance, stride, and arm swing. Motor Examination RUE Strength deltoid, biceps, triceps, wrist extensors, wrist extensors, wrist flexor, oyster harvester strength 5/5. LUE Strength deltoid, biceps, triceps, wrist extensors, wrist extensors, wrist flexor, oyster harvester strength 5/5. RLE Strength illopsoas, quadriceps, tibialis [...] 1-1/2 tablets twice a day. In November she presented to [facility] with a severe headache and vomiting. Per [...] than the left. She was transferred to [facility] due to concern for a leaking aneurysm. She wasgiven IV Keppra prior to transfer. There was [...] stopped breathing. Her lips have turned blue, shedrools. She has bitten her tongue but does not recall incontinence. The seizures generally last 2-3minutes. She denies warning signs. Afterwards she is tired and confused. It takes her about a day to be back to her normal self. Her brother has seizures. She was Depakote in the past. She used to follow with neurology in [place] and she followed up at [facility]. Her last appointment at [facility] was last year. Her Keppra was increased during the above hospitalization to 750mg BID. She denies any further events since then. She denies side effects of the medications. She states she had an ambulatory EEG in 2021 that was normal. This was done through [facility] in [place]. We will try to request the records [...] side and are pressure in character. They doradiate into her eyes. She has light and [...] evidence of focal parenchymal hemorrhage. Brain parenchyma itselfwas normal. Mild suppression in the sulci of [...] of care under direct physician supervision. Patient seenby Marisa Bowers APRN and Dr Galvan documented in this encounterSaint Louis University Health Science [id number] NoteReferral from Soniya Rivero MD to see machine stuffer for hypoglycemia. Phone number on file is not an active number and call could not be completed. Clinic phone number for dietitian appointment [phone].[facility]12-04-2023 Note Attestation signed by Daryn Mckee at [...] en Y gastric bypass in 2014 at [place], [place]. She lost about 150 lbs and [...] alarm. Reports Tuesday while working at the [facility] she got symptoms of hypoglycemia and during [...] hyperglycemia and hypoglycemia Glucometer: Method: [Downloaded] CGM: [Rezdy G6]: % Time CGM is active (target [...] - She has tri (more content not included)...[facility] 04-22-2023 History of Present illness Narrative* Julio César Pineda - 04/22/2023 10:06 AM EDT [facility] OP RX OUTREACH ADVANCED: Call Information: Date and Time of Contact: 04/22/2023 10:08 AM Method of Contact: By Phone Contact Type: Prescriptions Contactor: [facility] OP Contactee: Patient Shipping/Pickup: Medicare B Refill?: No Medication Name: Ajovy 225 MG/1.5ML Delivery Method: Air Delivery Location: Home Signature Required: No Mailing/Pickup Date: 04/28/2023 Shipping Address: [address] [place] [address] Contact Info: Specialty ([place]) [phone] [facility] [phone] [facility] [phone] Greg [phone] Bedside Delivery ([facility]) [phone] documented in this encounterTol[facility]08-14-2023 Note Attestation signed by Daryn Mckee at [...] en Y gastric bypass in 2014 at [place], [place]. She lost about 150 lbs and [...] alarm. Reports Tuesday while working at the [facility] she got symptoms of hypoglycemia and during [...] hyperglycemia and hypoglycemia Glucometer: Method: [Downloaded] CGM: [Rezdy G6]: % Time CGM is active (target [...] 2 2. Reactive hypoglycemia: (more content not included)...[facility]06-15-2023 NotePatient's number has been unreachable. Will try calling again.[facility]06-05-2023 Note Attestation signed by Daryn Mckee at [...] underwent Daniela en Y gastric bypass in 2015 at [place], [place]. She lost about 150 lbs and [...] alarm. Reports Tuesday while working at the [facility] she got symptoms of hypoglycemia and during [...] will consider pharmacological treatment. Will start with acarbose.[facility] 12-27-2022 History of Present illness Narrative* Katarina Healy RPh,PharmD - 12/27/2022 2:48 PM EDT [facility] OP RX OUTREACH ADVANCED: Call Information: Date and Time of Contact: 12/27/2022 2:50 PM Method of Contact: By Phone Contact Type: Prescriptions Contactor: [facility] OP Contactee: Patient Contact Outcome: Left message and Follow-up (Isaiovy refill / MMO) Contact Info: Specialty ([place]) [phone] Lars [phone] [facility] [phone] [facility] [phone] Bedside Delivery ([facility]) [phone] * Katarina Healy RPh,PharmD - 12/27/2022 2:48 PM EDT [facility] OP RX OUTREACH ADVANCED: Call Information: Date and Time of Contact: 12/29/2022 12:55 PM Method of Contact: By Phone Contact Type: Prescriptions Contactor: [facility] OP Contactee: Patient Contact Outcome: Left message and Follow-up (Isaiovmary msot) Contact Info: Specialty ([place]) [phone] Lars [phone] [facility] [phone] Greg [phone] Bedside Delivery ([facility]) [phone] * Julio César Pineda - 12/27/2022 2:48 PM EDT [facility] OP RX OUTREACH ADVANCED: Call Information: Date and Time of Contact: 12/29/2022 1:32 PM Method of Contact: By Phone Contact Type: Prescriptions Contactor: Patient Contactee: [facility] OP Shipping/Pickup: Medicare B Refill?: No Medication Name: Ajovy 225MG /1.5ML Delivery Method: Air Delivery Location: Home Signature Required: No Mailing/Pickup Date: 12/30/2022 Shipping Address: [address] [place] [address] Contact Info: Specialty ([place]) [phone] [facility] [phone] [facility] [phone] Greg [phone] Bedside Delivery ([facility]) [phone] * Katarina Healy RPh,PharmD - 12/27/2022 2:48 PM EDT [facility] OP RX OUTREACH ADVANCED: Call Information: Date and Time of Contact: 12/29/2022 1:32 PM Contact Info: Specialty ([place]) [phone] [facility] [phone] [facility] [phone] Greg [phone] Bedside Delivery ([facility]) [phone] I performed phone call visit for Rachid Mojica with patient regarding Ajovy prescription. I reviewed the patient's medication list, labs, adherence, and reviewed medication list for drug interactions. Patient/patient's caregiver's understanding of medication was assessed and counseling and educationwere completed. Rachid Mojica is Not New to therapy. The criteria below were discussed with the patient to ensure the appropriate level of follow-up andmonitoring for ongoing use. Confirmed Outpatient Visit with [...] Katarina Healy RPh,PharmD Date/Time: 12/29/2022 1:32 PM * Jaquelin Schwab RPH - 12/27/2022 2:48 PM EDT I performed phone call visit for Rachid Mojica with patient regarding Ajovy prescription. I reviewed the patient's medication list, labs, adherence, and reviewed medication list for drug interactions. Patient/patient's caregiver's understanding of medication was assessed and counseling and educationwere completed. Rachid Mojica is Not New to therapy. The criteria below were discussed with the patient to ensure the appropriate level of follow-up andmonitoring for ongoing use. Confirmed Outpatient Visit with [...] occurred during today's visit: Name: Jaquelin Schwab [facility] Date/Time: 12/29/2022 1:32 PM [facility] Miscellaneous Notes* Addendum Note - Jaquelin Schwab [facility] - 12/27/2022 2:48 PM EDTAddended by: JAQUELIN SCHWAB on: 12/29/2022 01:41 PM Modules accepted: Orders documented in this [facility]OS[facility]* Addendum Note - Jaquelin Schwab [facility] - 12/27/2022 2:48 PM EDTAddended by: JAQUELIN SCHWAB on: 12/29/2022 01:41 PM Modules accepted: Orders [facility] Note* Addendum Note - Jaquelin Schwab [facility] - 12/27/2022 2:48 PM EDTAddended by: JAQUELIN SCHWAB on: 12/29/2022 01:41 PM Modules accepted: Orders [facility]-05-[facility] Note* Addendum Note - Jaquelin Schwab [facility] - 12/27/2022 2:48 PM EDTAddended by: JAQUELIN SCHWBA on: 12/29/2022 01:41 PM Modules accepted: Orders [facility]06-05-[facility] Note* Addendum Note - Jaquelin Schwab [facility] - 12/27/2022 2:48 PM EDTAddended by: JAQUELIN SCHWAB on: 12/29/2022 01:41 PM Modules accepted: Orders [facility]06-01-[facility]23 NoteREASON FOR VISIT: Rachid Mojica is a 32 [...] the morning., Disp: , Rfl: Dexcom G6 Public Health Analyst misc, , Disp: , Rfl: Dexcom G6 [...] visit: Hypoglycemia - Gluco (more content not included)...[facility] 05-26-2022 History of Present illness Narrative* Sanket Medina MD - 05/26/2022 11:00 AM EDT [facility] HISTORY OF PRESENT ILLNESS aRchid Mojica is a 31 y.o. right handed female with a history of chronic intractable migraines complicated with reversible vasoconstriction syndrome (RCVS), recent event of SAH sec to RCVS who presents to [facility] at [facility] for establishing the care taking management [...] Denies any insomnia or excessive sleepiness. 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 Neurological [...] WF/E FF/E/A HF/E KF/E ADF R 5 5 5/5 5/ 5/ 5 55 5 5 L 5 11/26 11/26 5/ / 11/26 5 5 No pronator drift. Muscle stretch [...] lay them on their side, DON'T place anythingin their mouth, and someone should be timing [...] for assessment (call 911). Sanket Medina MD Juice Standardizer of Neurology [facility] Department of Neurology - Epilepsy Division [address] [place] [address] - 7th floor [place], [place] [address] . Total time to complete the visit : 60 minutes (record review, face to face encounter and documentation) . documented in this [facility]edo [facility]11-02-2022 Instructions* Patient Instructions* Sanket Medina MD - 05/26/2022 11:00 AM EDT Topamax only half tab in morning and full tablet Headache clinic referral documented in this [facility]01-05-2020 Hospital Discharge instructions* Instructions* Tobias Hogan, - 07/29/2019 Return to the Emergency Department immediately if you develop a fever, vomiting, worsening pain, worsening drainage from the FLYNN drain, or you have any other concerns. Please follow up with your surgeon in 1-2 days. * Attachments The following attachments cannot be sent through Care Everywhere. * Vaginal Yeast Infection (Malaysian) documented in this [facility] Phone: [phone] 150-568212-30-2019 Hospital Discharge instructions* Instructions* Jose Watson, - 07/23/2019 If given narcotics (opiates) during [...] for worsening symptoms, or if you develop anyconcerning symptoms such as: high fever not relieved [...] other care or concern. documented in [facility]Reg[facility]App[facility] Phone: [email or web address] + Plan note No data available for this section [facility] Evaluation note* Diagnosis Intra-abdominal abscess (HCC)- Primary Peritoneal abscess documented in this encounter [facility] Phone: [email or web address] note* Diagnosis Abscess, intra-abdominal, postoperative- Primary Other postoperative infection Yeast infection Other and unspecified mycoses documented in this encounter [facility] Phone: [email or web address] note* Diagnosis Evaluation for removal of FLYNN drains- Primary Other specified aftercare following surgery Intractable episodic headache, unspecified headache type Nausea Nausea alone Yeast vaginitis Candidiasis of vulva and vagina documented in this encounter [facility] Phone: [email or web address] note* Diagnosis Focal epilepsy- Primary Localization-related (focal) (partial) epilepsy and epileptic syndromes with simple partial seizures, without mention of intractable epilepsy Complicated migraine Migraine with aura, without mention of intractable migraine without mention of status migrainosus Reversible cerebrovascular vasoconstriction syndrome Other ill-defined cerebrovascular disease [facility]* Diagnosis Attention deficit hyperactivity disorder (ADHD), unspecified ADHD type (CMS/HCC)- Primary documented in this encounter [facility]* Diagnosis Type 2 diabetes mellitus with hypoglycemia without coma, without long-term current use of insulin ([facility])- Primary Reactive hypoglycemia Hypoglycemia, unspecified Dumping syndrome [...] gastric bypass [facility] encounter [facility]* Diagnosis History of gastric bypass- Primary Type 2 diabetes mellitus with hypoglycemia without [...] long-term current use of insulin (CMS/HCC)- Primary [facility] encounter [facility]* Diagnosis Attention deficit hyperactivity disorder (ADHD), unspecified ADHD type (CMS/HCC) documented [facility] encounter [facility]* Diagnosis Mild episode of recurrent major depressive disorder (HCC) (CMS/HCC) [facility] encounter [facility]* Diagnosis Attention deficit hyperactivity disorder (ADHD), unspecified ADHD type (CMS/HCC) documented in this encounter [facility] Healthcare[facility] note No data available for this section [facility] Reason for referral (narrative)* Consultation (Urgent) - New Request Specialty Diagnoses / Procedures Referred By Clint mora Referred To Contact Neurology Diagnoses Complicated migraine Reversible cerebrovascular vasoconstriction syndrome Sanket Medina MD [address] [place] [address] Referral ID Status Reason Start Date Expiration Date V isits Requested Visits Authorized [id number] New Request 05/26/2022 06/20/2023 1 1 [facility] Discharge Instructions * Instructions* Obdulio Harrison DO [...] questions, PLEASE call your doctor or the [facility] Weight Management center at documented in this encounter History of Present Illness * Sierra Santillan RN - 12/18/2019 3:25 PM EDT Patient given discharge instructions. All questions answered. Patient ambulated off unit for discharge. * Corina Juárez - 12/18/2019 12:19 PM EDT CLINICAL PHARMACY NOTE: MEDS TO [facility] Select Patient?: No Total # [...] RN - 12/17/2019 1:[address] lieva notified of itching-pt states I usual itch after any narcotics-orders given/notified of nausea-orders given * Jeannie Garcia DO - 12/17/2019 11:06 AM EDT [address] ONC/MED SURG [facility] [address] Dept: [phone] Loc: [phone] Bariatrics: Asked to see patient today regarding [...] GJ ulcer approximately 2.5 months ago in [place]. Primary surgery done in [place]. BP (!) 95/46 Pulse 68 Temp 97.9 F (36.6 C) (Oral) Resp 18 Ht 5' 5 (1.651 m) Wt 147 lb (66.7 kg) SpO2 98% BMI 24.46 kg/m Abdom: Soft, non distended, fullness on the left, but some rebound from the right Labs: 12/16/2019 6:14 AM - Abner, Rust Incoming Lab Results From [facility] Component Value Ref Range & Units Status Collected Lab WBC 5.8 3.5 - 11.3 k/uL Final 12/16/2019 6:00 AM [facility] RBC 4.36 3.95 - 5.11 m/uL Final 12/16/2019 6:00 AM [facility] Hemoglobin 13.5 11.9 - 15.1 g/dL Final 12/16/2019 6:00 AM [facility] Hematocrit 41.6 36.3 - 47.1 % Final 12/16/2019 6:00 AM [facility] MCV 95.4 82.6 - 102.9 fL Final 12/16/2019 6:00 AM [facility] MCH 31.0 25.2 - 33.5 pg Final 12/16/2019 6:00 AM [facility] MCHC 32.5 28.4 - 34.8 g/dL Final 12/16/2019 6:00 AM [facility] RDW 12.2 11.8 - 14.4 % Final 12/16/2019 6:00 AM [facility] Platelets 154 138 - 453 k/uL Final 12/16/2019 6:00 AM [facility] MPV 10.6 8.1 - 13.5 fL Final 12/16/2019 6:00 AM [facility] NRBC Automated 0.0 0.0 per 100 WBC Final 12/16/2019 6:00 AM [facility] Differential Type NOT REPORTED Final 12/16/2019 6:00 AM [facility] WBC Morphology NOT REPORTED Final 12/16/2019 6:00 AM [facility] RBC Morphology NOT REPORTED Final 12/16/2019 6:00 AM [facility] Platelet Estimate NOT REPORTED Final 12/16/2019 6:00 AM [facility] Seg Neutrophils 44 36 - 65 % Final 12/16/2019 6:00 AM [facility] Lymphocytes 41 24 - 43 % Final 12/16/2019 6:00 AM [facility] Monocytes 9 3 - 12 % Final 12/16/2019 6:00 AM [facility] Eosinophils % 5High 1 - 4 % Final 12/16/2019 6:00 AM [facility] Basophils 1 0 - 2 % Final 12/16/2019 6:00 AM [facility] Immature Granulocytes 0 0 % Final 12/16/2019 6:00 AM [facility] Segs Absolute 12/16/2019 6:31 AM - Abner, Jenifferpn Incoming Lab Results From [facility] Component Value Ref Range & Units Status Collected Lab Glucose 83 70 - 99 mg/dL Final 12/16/2019 6:00 AM [facility] BUN 9 6 - 20 mg/dL Final 12/16/2019 6:00 AM [facility] CREATININE 0.55 0.50 - [...] PM Abner, Mhpn Incoming Radiant Results From [facility] Rigoberto Orellana DO CC'd Results Radiation Dose [...] Urrutia MD General Surgery PGY2 Pager Number: [phone] * Kiya Cordero RN - 12/16/2019 4:[address] Urrutia, yoselin to hep lock pt while she is on clear liquid diet * Vielka Larson IV, - 12/16/2019 7:19 AM EDT General Surgery: Daily Progress Note PATIENT NAME: Rachid Mojica TODAY'S DATE: 12/16/2019, 7:19 AM CC: elvia SUBJECTIVE: Pt seen and examined at bedside. [...] FoundDocuments on File Type Date Recorded Patient Breast Worker Expl anation Advance Directives and Living Will Power of Child Care Group Leader Latest Code Status on File Code Status Date Activated Date Inactivated Comments Full Code 12/15/2019 9:45 PM Latest Code Status on File Code Status Date Activated Date Inactivated Comments Full Code 12/15/2019 9:45 PM 12/18/2019 5:31 PM Documents on File Type Date Recorded Patient Breast Worker Expl anation Advance Directives and Living Will Power of Child Care Group Leader Latest Code Status on File Code Status [...] for this section No Family History Records Found No data available for this section No data available for this section No Family History Records Found Chief Complaint and Reason for Visit Chief Complaint COVID TESTING Reason for Referral Specialty Diagnoses / Procedures Referred By Contac t Referred To Contact Diagnoses Chronic migraine without aura without status migrainosus, not intractable (CMS/HCC) Marisa Bowers, SURGICAL SCRUB TECHNOLOGIST [address] [place] [address] Referral ID Status Reason Start Date Expiration Date V isits Requested Visits Authorized [id number] Pending Review 03/13/2024 09/09/2024 1 1 Referral ID Status Reason Start Date Expiration Date V isits Requested Visits Authorized [id number] Pending Review 03/13/2024 09/09/2024 1 1 Additional Source Comments Reason for Visit (unrecogniz ed section and content) Reason Comments Abdominal Pain Pt states she did a CT of her abdomin and came back abnormal, abdominal pain x2 weeks Status Reason Specialty Diagnoses / Procedures Referre d By Contact Referred To Contact Diagnoses 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) Jeannie Garcia DO [address] [facility] [address] [place] [address] [facility] Status Reason Specialty Diagnoses / Procedures Re ferred By Contact Referred To Contact Diagnoses Epigastric pain EPIGASTRIC PAIN Procedures NH OFFICE/OUTPT VISIT,PROCEDURE ONLY NH ESOPHAGOGASTRODUODENOSCOPY TRANSORAL DIAGNOSTIC EGD ESOPHAGOGASTRODUODENOSCOPY Jeannie Garcia [address] [place] [address] [facility] Reason Comments Emesis pt states she has be en vomiting since a surgery for a ruptured lining during a scope Reason Comments Abdominal Pain Reason Comments Post-op Problem pt states she has an infection in her drain tubes Reason Comments New Patient Specialty Diagnoses / Procedures Referred By Clint t Referred To Contact Neurology Diagnoses History of seizures Alissa Gibbs, SURGICAL DRESSING MAKER-SEWING MACHINE MECHANIC [address] [facility] [address] [place] [address] Referral ID Status Reason Start Date Expiration Date V isits Requested Visits Authorized [id number] New Request 12/29/2021 01/23/2023 1 1 Reason Onset Date Comments Med Refill 05/08/2024 Reason Comments Follow-up Reason Onset Date Comments Med Refill 06/10/2024 Reason Onset Date Comments Med Refill 06/17/2024 Reason Onset Date Comments Ubrelvy Denied 03/14/2024 Reason Comments Establish Care Reason Onset Date Comments Med Refill 07/15/2024 Reason Onset Date Comments Med Refill 07/18/2024 Reason Comments Migraine Reason Onset Date Comments Med Refill 08/19/2024 Reason Onset Date Comments Med Refill 09/17/2024 Reason Onset Date Comments Med Refill 09/17/2024 INFORMATION SOURCE (unrecogn ized section and content) DATE CREATED AUTHOR 01/05/2020 [facility] Tyra dalton DATE CREATED AUTHOR AUTHOR'S ORGANIZ ATION 01/07/2020 [facility] DATE CREATED AUTHOR AUTHOR'S ORGANIZ ATION 03/30/2021 [facility] DATE CREATED AUTHOR AUTHOR'S ORGANIZ ATION 01/03/2023 [facility] DATE CREATED AUTHOR AUTHOR'S ORGANIZ ATION 11/12/2023 [facility] DATE CREATED AUTHOR AUTHOR'S ORGANIZ ATION 06/09/2024 [facility] DATE CREATED AUTHOR AUTHOR'S ORGANIZ ATION 07/04/2024 [facility] DATE CREATED AUTHOR AUTHOR'S ORGANIZ ATION 08/15/2024 [facility] Specialists EPIC DATE CREATED AUTHOR AUTHOR'S ORGANIZ ATION 09/30/2024 Jordan Ibanez [facility] Care Teams (unrecognized sec tion and content) Fire Prevention Research Engineer Relationship Specialty Start Date End Date Lorin Traylor, SEWING MACHINE MECHANIC [address] [facility] [address] [place] [address] PCP - General Nurse Practitioner - Family 12/29/21 Fire Prevention Research Engineer Relationship Specialty Start Date End Date Lorin Traylor, SEWING MACHINE MECHANIC [address] [facility] [address] [place] [address] PCP - General Nurse Practitioner - Family 12/29/21 Fire Prevention Research Engineer Relationship Specialty Start Date End Date Lorin Traylor SEWING MACHINE MECHANIC [address] [facility] [address] [place] [address] PCP - General Nurse Practitioner - Family 12/29/21 Fire Prevention Research Engineer Relationship Specialty Start Date End Date Nona Landry, DO [address] [place] [address] PCP - General Family Medicine 04/02/24 Fire Prevention Research Engineer Relationship Specialty Start Date End Date Nona Landry, DO [address] [place] [address] PCP - General Family Medicine 04/02/24 Fire Prevention Research Engineer Relationship Specialty Start Date End Date Nona Landry, DO [address] [place] [address] PCP - General Family Medicine 04/02/24 Fire Prevention Research Engineer Relationship Specialty Start Date End Date Nona Landry DO [address] [place] [address] PCP - General Family Medicine 04/02/24 Fire Prevention Research Engineer Relationship Specialty Start Date End Date Nona Landry DO [address] [place] [address] PCP - General Family Medicine 04/02/24 Fire Prevention Research Engineer Relationship Specialty Start Date End Date Nona Landry DO [address] [place] [address] PCP - General Family Medicine 04/02/24 Fire Prevention Research Engineer Relationship Specialty Start Date End Date TallasseeNona motley DO [address] [place] [address] PCP - General Family Medicine 04/02/24 Fire Prevention Research Engineer Relationship Specialty Start Date End Date Frantz Nona L, DO [address] [place] [address] PCP - General Family Medicine 04/02/24 Fire Prevention Research Engineer Relationship Specialty Start Date End Date Conrado Landrynellie Smith DO [address] [place] [address] PCP - General Family Medicine 04/02/24 Fire Prevention Research Engineer Relationship Specialty Start Date End Date Frantz Nona L, DO [address] [place] [address] PCP - General Family Medicine 04/02/24 Fire Prevention Research Engineer Relationship Specialty Start Date End Date Frantz Nona L, DO [address] [place] [address] PCP - General Family Medicine 04/02/24 Fire Prevention Research Engineer Relationship Specialty Start Date End Date Nona Landry DO [address] [place] [address] PCP - General Family Medicine 04/02/24 FOR [...] BE BASED ON THE PRIMARY CLINICAL RECORDS. [facility] [employer] [facility]. provides no warranty or guarantee of the accuracy or completeness of information in this document.
--- NOTE | 2024-10-01 18:22 | ED.EXTPRO1 ---
HPI - Extremity Problem General Chief complaint: Extremity Problem, Nontraumatic Stated complaint: foot pain Time Seen by Provider: 10/01/24 18:12 Source: patient Mode of arrival: walk-in History of Present Illness HPI Narrative: Patient is a 33-year-old female who presents to the emergency department for evaluation of bilateral foot pain and cramping for the last several months. She states she came to the emergency department today because she feels like her toes curl which is causing pain and difficulty being able to work. She has no concern for . She has no swelling, redness, wounds or drainage. She has not seen her primary care provider or any specialist for the symptoms. No medications taken prior to arrival today. Related Data Home Medications ?Medication ?Instructions ?Recorded ?Confirmed amitriptyline 25 mg tablet 25 mg PO QDAY PRN nerve pain 03/15/23 02/28/24 cholecalciferol (vitamin D3) 10 2,000 unit PO QDAY 03/15/23 02/28/24 mcg (400 unit) tablet (Vitamin D3) dexmethylphenidate 20 mg 20 mg PO QDAY 03/15/23 02/28/24 capsule,extended release [id number] fremanezumab-vfrm 225 mg/1.5 mL 225 mg subcut .qmonth 03/15/23 07/11/23 subcutaneous syringe (Ajovy Syringe) levetiracetam 500 mg tablet 750 mg PO Q12H 03/15/23 02/28/24 Previous Rx's ?Medication ?Instructions ?Recorded amoxicillin 875 mg-potassium 1 tab PO Q12H #14 tabs 07/11/23 clavulanate 125 mg tablet methocarbamol 750 mg tablet 750 mg PO TID PRN pain #20 tabs 08/30/23 methylprednisolone 4 mg tablets in See Rx Instructions .Route 08/30/23 a dose pack (Medrol (Isaac)) .COMPLEX #21 ea orphenadrine citrate 100 mg 100 mg PO BID PRN muscle pain #14 02/28/24 tablet,extended release tabs prednisone 20 mg tablet See Rx Instructions .Route 02/28/24 .COMPLEX #12 tabs loratadine 5 mg-pseudoephedrine ER 1 tab PO Q12H PRN nasal congestion 06/24/24 120 mg tablet,extended #20 tabs release,12hr (Claritin-D 12 Hour) loratadine 5 mg-pseudoephedrine ER 1 tab PO Q12H PRN nasal congestion 07/26/24 120 mg tablet,extended #20 tabs release,12hr (Claritin-D 12 Hour) ondansetron 4 mg disintegrating 4 mg PO Q6H PRN nausea and 07/26/24 tablet vomiting #20 tabs methocarbamol 750 mg tablet 750 mg PO TID PRN pain #20 tabs 10/01/24 methylprednisolone 4 mg tablets in See Rx Instructions .Route 10/01/24 a dose pack (Medrol (Isaac)) .COMPLEX #21 ea Allergies Allergy/AdvReac Type Severity Reaction Status Date / Time latex Allergy Intermediate Rash Verified 10/01/24 18:15 NSAIDS (Non-Steroidal AdvReac Intermediate Nausea Verified 10/01/24 18:15 Anti-Inflamma Review of Systems ROS Constitutional Denies: fever or chills Ears, nose, mouth, and throat Denies: throat pain or nasal congestion Respiratory Denies: shortness of breath Gastrointestinal Denies: nausea or vomiting Musculoskeletal Reports: extremity pain; Denies: back pain or neck pain Integumentary/Breast Denies: rash Neurological Denies: numbness in extremities or weakness in extremities Hematologic/Lymphatic Denies: easy bruising or easy bleeding PFSH PFSH Social History Smoking status: Never smoker Little interest or pleasure in doing things: not at all Feeling down, depressed, or hopeless: not at all Exam Narrative Exam Narrative: Gen.: Awake, alert, in no distress Head: Normocephalic, atraumatic ENT: Moist mucous membranes Respiratory: No respiratory distress Extremities: Bilateral feet are symmetric, no open wounds, redness or drainage. No deformities noted of the feet. 2+ DP pulses bilaterally. Psych: Normal mood and affect Neuro: No focal neuro deficit Skin: Warm, dry, intact Constitutional Vital Signs, click to edit/add: Last Vital Signs Temp 98.0 F 10/01/24 18:15 Pulse 112 H 10/01/24 18:15 Resp 14 10/01/24 18:15 BP 124/62 10/01/24 18:15 Pulse Ox 98 10/01/24 18:15 O2 Del Method Room Air 10/01/24 18:15 Course Vital Signs Vital signs: Vital Signs Temperature 98.0 F 10/01/24 18:15 Pulse Rate 112 H 10/01/24 18:15 Respiratory Rate 14 10/01/24 18:15 Blood Pressure 124/62 10/01/24 18:15 Pulse Oximetry 98 10/01/24 18:15 Oxygen Delivery Method Room Air 10/01/24 18:15 Temperature 98.0 F 10/01/24 18:15 Pulse Rate 112 H 10/01/24 18:15 Respiratory Rate 14 10/01/24 18:15 Blood Pressure 124/62 10/01/24 18:15 Pulse Oximetry 98 10/01/24 18:15 Oxygen Delivery Method Room Air 10/01/24 18:15 MDM - Extremity (Nontraumatic) MDM Narrative Medical decision making narrative: Patient with a benign exam, ongoing symptoms for several months. She is given a podiatry referral, muscle relaxant and steroid taper for possible tendinitis/inflammation. Follow-up with podiatry and return to the ER if symptoms change or worsen SUPERVISED APC VISIT, PHYSICIAN ATTESTATION: Based on the medical record the care appears appropriate. ? Medical Records Attestation: I reviewed the patient's medical records. Discharge Plan Discharge Chief Complaint: Extremity Problem, Nontraumatic Clinical Impression: Bilateral foot pain Patient Disposition: Home, Self-Care Time of Disposition Decision: 18:19 Condition: Good Prescriptions / Home Meds: New methocarbamol 750 mg tablet 750 mg PO TID PRN (Reason: pain) Qty: 20 0RF methylprednisolone [Medrol (Isaac)] 4 mg tablets,dose pack See Rx Instructions .ROUTE .COMPLEX Qty: 21 0RF Rx Instructions: Taper as directed No Action amoxicillin-pot clavulanate 875-125 mg tablet 1 tab PO Q12H Qty: 14 0RF Claritin-D 12 Hour 5-120 mg tablet extended release 12 hr 1 tab PO Q12H PRN (Reason: nasal congestion) Qty: 20 0RF amitriptyline 25 mg tablet 25 mg PO QDAY PRN (Reason: nerve pain ) cholecalciferol (vitamin D3) [Vitamin D3] 10 mcg (400 unit) tablet 2,000 unit PO QDAY dexmethylphenidate 20 mg capsule,ER biphasic 50-50 20 mg PO QDAY Ajovy Syringe 225 mg/1.5 mL syringe 225 mg SUBCUT .qmonth levetiracetam 500 mg tablet 750 mg PO Q12H methocarbamol 750 mg tablet 750 mg PO TID PRN (Reason: pain) Qty: 20 0RF methylprednisolone [Medrol (Isaac)] 4 mg tablets,dose pack See Rx Instructions .ROUTE .COMPLEX Qty: 21 0RF Rx Instructions: Taper as directed prednisone 20 mg tablet See Rx Instructions .ROUTE .COMPLEX Qty: 12 0RF Rx Instructions: 3 tabs daily for 2 days, then 2 tabs daily for 2 days, then 1 tab daily for 2 days orphenadrine citrate 100 mg tablet extended release 100 mg PO BID PRN (Reason: muscle pain) Qty: 14 0RF Claritin-D 12 Hour 5-120 mg tablet extended release 12 hr 1 tab PO Q12H PRN (Reason: nasal congestion) Qty: 20 0RF ondansetron 4 mg tablet,disintegrating 4 mg PO Q6H PRN (Reason: nausea and vomiting) Qty: 20 0RF Print Language: Citizen Of [place] Instructions: Arthralgia (ED) Additional Instructions: Call Dr. Medina's office for scheduling Referrals: Scout Medina DPM [Physician] - As soon as possible Grabiel Landry [Primary Care Provider] - 1 week
== END 2024-10-01 18:38 | disposition home or self-care (01) ==
PROVIDERS: Emergency Provider Emergency Medicine; PCP Family Medicine
DX: M79.671 Pain in right foot (principal); M79.672 Pain in left foot
CPT/HCPCS: 99283

== ENCOUNTER 2024-11-29 14:10 | Emergency (ER) | payer OTHER, SELFPAY ==
[2024-11-29 14:12] VITALS: BP 105/64; PULSE 95; TEMP 36.6; O2SAT 98; BMI 26.6
--- NOTE | 2024-11-29 14:21 | ED.UPPEXIN1 ---
HPI HPI - Extremity Injury (Upper) General Chief Complaint: Extremity Injury, Upper Stated Complaint: POSSIBLE SKIN INFECTION Time Seen by Provider: 11/29/24 14:11 Source: patient Mode of arrival: walk-in Limitations: no limitations History of Present Illness HPI narrative: Patient is a 34-year-old female who presents to the emergency department for redness to the left forearm. 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 She states that the area has become more red and warm. Tetanus is up-to-date. She has no concern for . No drainage or fevers. Related Data Home Medications ?Medication ?Instructions ?Recorded ?Confirmed amitriptyline 25 mg tablet 25 mg PO QDAY PRN nerve pain 03/15/23 02/28/24 cholecalciferol (vitamin D3) 10 2,000 unit PO QDAY 03/15/23 02/28/24 mcg (400 unit) tablet (Vitamin D3) dexmethylphenidate 20 mg 20 mg PO QDAY 03/15/23 02/28/24 capsule,extended release -04 fremanezumab-vfrm 225 mg/1.5 mL 225 mg subcut .qmonth 03/15/23 07/11/23 subcutaneous syringe (Ajovy Syringe) levetiracetam 500 mg tablet 750 mg PO Q12H 03/15/23 02/28/24 Previous Rx's ?Medication ?Instructions ?Recorded amoxicillin 875 mg-potassium 1 tab PO Q12H #14 tabs 07/11/23 clavulanate 125 mg tablet methocarbamol 750 mg tablet 750 mg PO TID PRN pain #20 tabs 08/30/23 methylprednisolone 4 mg tablets in See Rx Instructions .Route 08/30/23 a dose pack (Medrol (Isaac)) .COMPLEX #21 ea orphenadrine citrate 100 mg 100 mg PO BID PRN muscle pain #14 02/28/24 tablet,extended release tabs prednisone 20 mg tablet See Rx Instructions .Route 02/28/24 .COMPLEX #12 tabs loratadine 5 mg-pseudoephedrine ER 1 tab PO Q12H PRN nasal congestion 06/24/24 120 mg tablet,extended #20 tabs release,12hr (Claritin-D 12 Hour) loratadine 5 mg-pseudoephedrine ER 1 tab PO Q12H PRN nasal congestion 07/26/24 120 mg tablet,extended #20 tabs release,12hr (Claritin-D 12 Hour) ondansetron 4 mg disintegrating 4 mg PO Q6H PRN nausea and 07/26/24 tablet vomiting #20 tabs methocarbamol 750 mg tablet 750 mg PO TID PRN pain #20 tabs 10/01/24 methylprednisolone 4 mg tablets in See Rx Instructions .Route 10/01/24 a dose pack (Medrol (Isaac)) .COMPLEX #21 ea cephalexin 500 mg capsule 500 mg PO Q8H 10 days #30 caps 11/29/24 sulfamethoxazole 800 1 tab PO BID 10 days #20 tabs 11/29/24 mg-trimethoprim 160 mg tablet (Bactrim DS) Allergies Allergy/AdvReac Type Severity Reaction Status Date / Time latex Allergy Intermediate Rash Verified 11/29/24 14:19 NSAIDS (Non-Steroidal AdvReac Intermediate Nausea Verified 11/29/24 14:19 Anti-Inflamma Opioid HPI Opioid Management Most Recent Pain and Opioid Data: Last Pain Scale 8 02/28/24, 18:33 Ur Phencyclidine Scrn, (NEGATIVE) Negative 03/15/23, 09:25 Review of Systems ROS Constitutional Denies: fever or chills Ears, nose, mouth, and throat Denies: throat pain or nasal congestion Cardiovascular Denies: chest pain Respiratory Denies: shortness of breath Gastrointestinal Denies: nausea or vomiting Musculoskeletal Denies: back pain or neck pain Integumentary/Breast Reports: redness and skin pain; Denies: rash Hematologic/Lymphatic Denies: easy bruising or easy bleeding PFSH PFSH Social History Smoking status: Never smoker Little interest or pleasure in doing things: not at all Feeling down, depressed, or hopeless: not at all Exam Narrative Exam Narrative: Gen.: Awake, alert, in no distress Head: Normocephalic, atraumatic ENT: Moist mucous membranes Respiratory: No respiratory distress Extremities: Moves extremities equally, small abrasions noted to the dorsum of the left forearm, scabbed and well-healing with minimal surrounding blanching erythema and warmth. No induration, fluctuance or drainage noted. No red streaking or circumferential erythema Psych: Normal mood and affect Neuro: No focal neuro deficit Skin: Warm, dry Constitutional Vital Signs, click to edit/add: Last Vital Signs Temp 98 F 11/29/24 14:12 Pulse 95 H 11/29/24 14:12 Resp 16 11/29/24 14:12 BP 105/64 11/29/24 14:12 Pulse Ox 98 11/29/24 14:12 O2 Del Method Room Air 11/29/24 14:12 Course Vital Signs Vital signs: Vital Signs Temperature 98 F 11/29/24 14:12 Pulse Rate 95 H 11/29/24 14:12 Respiratory Rate 16 11/29/24 14:12 Blood Pressure 105/64 11/29/24 14:12 Pulse Oximetry 98 11/29/24 14:12 Oxygen Delivery Method Room Air 11/29/24 14:12 Temperature 98 F 11/29/24 14:12 Pulse Rate 95 H 11/29/24 14:12 Respiratory Rate 16 11/29/24 14:12 Blood Pressure 105/64 11/29/24 14:12 Pulse Oximetry 98 11/29/24 14:12 Oxygen Delivery Method Room Air 11/29/24 14:12 MDM - Extremity Injury (Upper) MDM Narrative Medical decision making narrative: Exam is consistent with mild wound infection of abrasion to the left forearm. Tetanus is up-to-date. Patient encouraged to apply warm compresses and use topical antibiotic ointment. 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 No evidence of significant cellulitis or abscess. She is neurovascularly intact at discharge. Follow-up with PCP and return to the ER if symptoms change or worsen SUPERVISED APC VISIT, PHYSICIAN ATTESTATION: Based on the medical record the care appears appropriate. ? Medical Records Attestation: I reviewed the patient's medical records. Discharge Plan Discharge Chief Complaint: Extremity Injury, Upper Clinical Impression: Abrasion of forearm, left, Wound infection Patient Disposition: Home, Self-Care Time of Disposition Decision: 14:18 Condition: Good Prescriptions / Home Meds: New sulfamethoxazole-trimethoprim [Bactrim DS] 800-160 mg tablet 1 tab PO BID 10 Days Qty: 20 0RF cephalexin 500 mg capsule 500 mg PO Q8H 10 Days Qty: 30 0RF No Action amoxicillin-pot clavulanate 875-125 mg tablet 1 tab PO Q12H Qty: 14 0RF Claritin-D 12 Hour 5-120 mg tablet extended release 12 hr 1 tab PO Q12H PRN (Reason: nasal congestion) Qty: 20 0RF methocarbamol 750 mg tablet 750 mg PO TID PRN (Reason: pain) Qty: 20 0RF methylprednisolone [Medrol (Isaac)] 4 mg tablets,dose pack See Rx Instructions .ROUTE .COMPLEX Qty: 21 0RF Rx Instructions: Taper as directed amitriptyline 25 mg tablet 25 mg PO QDAY PRN (Reason: nerve pain ) cholecalciferol (vitamin D3) [Vitamin D3] 10 mcg (400 unit) tablet 2,000 unit PO QDAY dexmethylphenidate 20 mg capsule,ER biphasic 50-50 20 mg PO QDAY Ajovy Syringe 225 mg/1.5 mL syringe 225 mg SUBCUT .qmonth levetiracetam 500 mg tablet 750 mg PO Q12H methocarbamol 750 mg tablet 750 mg PO TID PRN (Reason: pain) Qty: 20 0RF methylprednisolone [Medrol (Isaac)] 4 mg tablets,dose pack See Rx Instructions .ROUTE .COMPLEX Qty: 21 0RF Rx Instructions: Taper as directed prednisone 20 mg tablet See Rx Instructions .ROUTE .COMPLEX Qty: 12 0RF Rx Instructions: 3 tabs daily for 2 days, then 2 tabs daily for 2 days, then 1 tab daily for 2 days orphenadrine citrate 100 mg tablet extended release 100 mg PO BID PRN (Reason: muscle pain) Qty: 14 0RF Claritin-D 12 Hour 5-120 mg tablet extended release 12 hr 1 tab PO Q12H PRN (Reason: nasal congestion) Qty: 20 0RF ondansetron 4 mg tablet,disintegrating 4 mg PO Q6H PRN (Reason: nausea and vomiting) Qty: 20 0RF Print Language: [place] Instructions: Wound Infection (ED) Referrals: Grabiel Landry [Primary Care Provider] - 1 week
== END 2024-11-29 14:25 | disposition home or self-care (01) ==
PROVIDERS: Emergency Provider Emergency Medicine; PCP Family Medicine
DX: S50.812A Abrasion of left forearm, initial encounter (principal); L08.9 Local infection of the skin and subcutaneous tissue, unspecified; W50.4XXA Accidental scratch by another person, initial encounter
CPT/HCPCS: 99283

== ENCOUNTER 2024-12-04 07:17 | Outpatient (OUT) | payer OTHER, SELFPAY ==
--- OUTSIDE RECORDS SUMMARY | 2024-12-04 07:21 | XMS_ITS | CCD ---
Author Organization [facility] Care Team Providers Care Window And Door Installer Name Role Phone Violet Ross Primary Care [...] Primary Care Provider None, Physician Attending Provider [phone] Priyanka Angelo MD Attending Unapeggy ilable Unavailable Primary Care Provider Unavailabl e Cleemput Lorin CERON Primary Care Provider [phone] Cleemput OSMANY, Lorin Primary Care Provider [phone] CLEEMPUT, LORIN Primary Care Unavailable CLEEMPUT, LORIN Primary Care Unavailable ALISSA GIBBS Referring Unavailable SANKET MEDINA Attending Unavailable Cleemput OSMANY, Lorin Primary Care Provider [phone] SONIYA RIVERO Attending Unavailable SU LAMAR Attending Unavailab DAVIS Mendez Attending Unavailable SONIYA RIVERO Attending Unavailable Nona Landry DO Primary Care Provider Anson Patiño DO Attending Unavailab le Cleemput CATERPILLAR MECHANIC-Lorin CERON Primary Care Unavai labAnson Anand DO Attending Unavailab le Cleemput CATERPILLAR MECHANIC-GARMENT FINISHER, Lorin Shanti Primary Care Unavai lable Haroon DO, Anson Yi Attending Unavailab le Cleemput CATERPILLAR MECHANIC-GARMENT FINISHER, Lorin Shanti Primary Care Unavai lable Haroon DO, Anson Yi Attending Unavailab le Cleemput CATERPILLAR MECHANIC-GARMENT FINISHER, Lorin Shanti Primary Care Unavai lable Cleemput CATERPILLAR MECHANIC-GARMENT FINISHER, Lorin Shanti Primary Care Unavai lable Haroon DO, Anson Yi Attending Unavailab le Haroon DO, Anson Yi Attending Unavailab le Cleemput CATERPILLAR MECHANIC-GARMENT FINISHER, Lorin Shanti Primary Care Unavai lable Haroon DO, Anson Yi Attending Unavailab le Cleemput CATERPILLAR MECHANIC-GARMENT FINISHER, Lorin Shanti Primary Care Unavai lable NONA LANDRY Primary Care Physician [phone] Jerrell Porter Attending Unavailable Unavailable Primary Care [...] Propensity to adverse reactions to drug 9 [facility] Work Phone: (16 sources) Vancomycin; Translations: [vancomycin] Drug Allergy [address] [place] [address] Work Phone: (1 source) No Known Medication Allergies; Translations: [No Known Medication Allergies] Propensity to adverse reactions to drug (disorder) [facility] Repository (10 sources) Diatrizoate Drug Allergy 2 [facility] Work Phone: (11 sources) Iodine; Translations: [iodine] Drug Allergy 2 [facility] (11 sources) NSAIDs; Translations: [NSAIDs] Propensity to adverse reactions to drug 2 [facility] (20 sources) Latex Propensity to adverse reactions to drug 7 Rash [facility] (1 source) natural latex rubber; Translations: [LATEX, NATURAL RUBBER] Propensity to adverse reactions to drug (disorder) 5 [facility] Repository (1 source) NSAIDs; Translations: [NSAIDS (NON-STEROIDAL ANTI-INFLAMMATORY DRUG)] Propensity to adverse reactions to drug (disorder) 4 [facility] Repository (1 source) Gluten; Translations: [Glutens] Propensity to adverse reactions to food (disorder) [facility] Repository (1 source) iodinated radiocontrast dyes; Translations: [iodinated radiocontrast dyes] Propensity to adverse reactions to drug (disorder) [facility] Repository Medications Current Medications Medication [...] every four hours as needed for headache svisalvqak-zavxcobsbtepk-jvrdhjly (FIORICET, ESGIC) 50-325-40 MG per tablet Take 1 tablet by mouth every 4 hours as needed for Headaches 0 Active ALPRAZolam 0.25 mg oral tablet (4 sources) Benzodiazepine Sta rt: 5 take 1 tablet by mouth three times daily as needed for anxiety ALPRAZolam (Xanax) 0.25 MG tablet Indications: Anxiety disorder, unspecified type Take 1 tablet (0.25 mg) by mouth 3 (three) times a day as needed for anxiety 5 tablet 10/11/2024 Active amitriptyline hydrochloride 50 mg oral tablet [...] day(s), # 14 tab(s), Refills(s) 0, Pharmacy: [facility]/pharmacy #[id number], 165, cm, 08/26/24 7:52:00 EST, Height/Length Dosing, 75, kg, 08/26/24 7:52:00 EST, Weight Dosing Start Date: 08/26/24 Stop Date: 09/02/24 Status: Ordered Start: 08-03-2024 End: 08-10-2024 Augmentin 875 mg-125 mg Tab 1 tab(s), Oral, BID for 7 day(s), 14 tab(s), Refill(s) 0, [facility]/pharmacy #[id number], 165, cm, 08/03/24 7:43:00 EST, Height/Length Dosing, 75.1, kg, 08/03/24 7:43:00 EST, Weight Dosing Start Date: 08/03/24 Stop Date: 08/10/24 Status: Ordered End: 07-23-2019 take 1 tablet by mouth twice daily amoxicillin-clavulanate (AUGMENTIN) 500-125 MG per tablet Take 1 tablet by mouth 2 times daily 0 07/23/2019 Discontinued (LIST CLEANUP) b complex vitamins capsule (3 sources) take 1 capsule by mo [facility] once daily b complex vitamins capsule Take 1 capsule by mouth daily 0 Active take 1 capsule by mouth once aldo ly b complex vitamins capsule Take 1 capsule by mouth daily 0 Suspended brompheniramine maleate 0.4 mg/ml / dextromethorphan hydrobromide 2 mg/ml / pseudoephedrine hydrochloride 6 mg/ml oral solution (2 sources) alpha-Adrenergic Agonist, Uncompetitive C-fbqleu-M-aspartate Receptor Antagonist, Sigma-1 Agonist Start: 08-26-2024 take 10 mL by mouth four times daily Bromfed DM oral syrup 10 mL, Oral, QID for cold symptoms, 200 mL, Refill(s) 0, [facility]/pharmacy #[id number], 165, cm, 08/26/24 7:52:00 EST, Height/Length Dosing, 75, kg, 08/26/24 7:52:00 EST, Weight Dosing Start Date: 08/26/24 Status: Ordered calcium chloride 0.0014 meq/ml / potassium chloride 0.004 meq/ml / sodium chloride 0.103 meq/ml / sodium lactate 0.028 meq/ml injectable solution (4 sources) Start: 01-04-2020 lactated ringers infusion Start: 12-15-2019 End: 12-17-2019 Intravenous, at 75 mL/hr, CO NTINUOUS, Starting Tue12/17/19 at 1500 Start: 07-23-2019 End: 07-23-2019 lactated [...] Continuous Glucose Sensor (FreeStyle Adrian 3 Sensor) [facility] (20 sources) Start: 11-07-2024 Continuous Glucose Sensor (FreeStyle Adrian 3 Sensor) [facility] Indications: Reactive hypoglycemia , Type 2 diabetes mellitus with hypoglycemia without coma, without long-term current use of insulin ([facility]) 1 each every 14 (fourteen) days 2 each 11/07/2024 Active Start: 04-02-2024 Continuous Glu cose Sensor (FreeStyle Adrian 3 Sensor) [facility] Indications: Reactive hypoglycemia , Type 2 diabetes mellitus with hypoglycemia without coma, without long-term current use of insulin (CMS/HCC) 1 each every 14 (fourteen) days 2 each 12 04/02/2024 Active 24 hr dexmethylphenidate hydrochloride 20 mg extended release oral capsule (20 sources) Central Nervous System Stimulant Start: 11-21-2024 take 1 capsule by mouth once daily dexmethylphenidate XR (Focalin XR) 20 MG 24 hr capsule Indications: Attention deficit hyperactivity disorder (ADHD), unspecified ADHD type (CMS/HCC) Take 1 capsule (20 mg) by mouth Daily 30 capsule 11/21/2024 Active Start: 11-21-2024 take 1 capsule by [facility] once daily dexmethylphenidate XR (Focalin XR) 20 MG 24 hr capsule Indications: Attention deficit hyperactivity disorder (ADHD), unspecified ADHD type (CMS/HCC) Take 1 capsule (20 mg) by mouth Daily 30 capsule 11/21/2024 Active Start: 10-22-2024 End: 11-21-2024 take 1 capsule by mouth once daily dexmethylphenidate XR (Focalin XR) 20 MG 24 hr capsule Indications: Attention deficit hyperactivity disorder (ADHD), unspecified ADHD type (CMS/HCC) Take 1 capsule (20 mg) by mouth Daily 30 capsule 10/22/2024 11/21/2024 Discontinued (Reorder) Start: 05-16-2024 End: 10-19-2024 take 1 capsule by mouth once daily dexmethylphenidate XR (Focalin XR) 20 MG 24 hr capsule Indications: Attention deficit hyperactivity disorder (ADHD), unspecified ADHD type (CMS/HCC) Take 1 capsule (20 mg) by mouth Daily 30 capsule 09/17/2024 10/19/2024 Discontinued (Reorder) Start: 05-10-2024 End: 05-16-2024 take 2 capsules by mouth once daily dexmethylphenidate XR (Focalin XR) 10 MG 24 hr capsule Indications: Attention deficit hyperactivity disorder (ADHD), unspecified ADHD type (CMS/HCC) Take 2 capsules (20 mg) by mouth Daily 30 capsule 05/10/2024 05/16/2024 Discontinued (Reorder) Start: 11-16-2021 take 1 capsule by [facility] once daily Dexmethylphenidate HCl 20 MG Cap [...] Active 0.5 ml dulaglutide 3 mg/ml auto-injector (8 sources) GLP-1 Receptor Agonist Start: 08-30-2024 End: 10-22-2025 inject 1.5 mg by subcutaneous injection every week Dulaglutide (Trulicity) 1.5 MG/0.5ML solution auto-injector Indications: Type 2 diabetes mellitus with hypoglycemia without coma, without long-term current use of insulin (CMS/HCC) Inject 1.5 mg under the skin 1 (one) time per week 6 mL 3 10/22/2024 10/22/2025 Active 0.4 ml enoxaparin sodium 100 mg/ml [...] propionate 0.05 mg/actuat metered dose nasal spray (10 sources) Corticosteroid Start: Flonase Allergy Relief 50 MCG/ACT nasal spray Administer into affected nostril(s) 08/03/2024 Active Start: 08-03-2024 End: 08-10-2024 take 1 spray(s) nasal route twice daily Flonase 0.05 mg/inh [place] 1 spray(s), Nasal, BID for 7 day(s), 16 gm, Refill(s) 0, each nostril, [facility]/pharmacy #[id number], 165, cm, 08/03/24 7:43:00 EST, Height/Length [...] day(s), # 18 tab(s), Refills(s) 0, Pharmacy: [facility]/pharmacy #[id number], 165, cm, 08/30/24 16:37:00 EST, Height/Length Dosing, 77.3, kg, 08/30/24 16:37:00 EST, Weight Dosing Start Date: 08/30/24 Stop Date: 09/02/24 Status: Ordered Start: 12-17-2019 take 750 mg by mouth every six hours 750 mg, Oral, EVERY 6 HOURS, First dose on 12/17/19 at 1530 methylphenidate hydrochloride 10 mg oral tablet (20 sources) Central Nervous System Stimulant Start: 11-21-2024 take 1 tablet by mouth once daily methylphenidate (Ritalin) 10 MG tablet Indications: Attention deficit hyperactivity disorder (ADHD), unspecified ADHD type (CMS/HCC) Take 1 tablet (10 mg) by mouth once per day 30 tablet 11/21/2024 Active Start: 10-22-2024 End: 11-21-2024 take 1 tablet by mouth once daily methylphenidate (Ritalin) 10 MG tablet Indications: Attention deficit hyperactivity disorder (ADHD), unspecified ADHD type (CMS/HCC) Take 1 tablet (10 mg) by mouth once per day 30 tablet 10/22/2024 11/21/2024 Discontinued (Reorder) Start: 08-29-2023 End: 10-19-2024 take 1 tablet by mouth once daily methylphenidate (Ritalin) 10 MG tablet Indications: Attention deficit hyperactivity disorder (ADHD), unspecified ADHD type (CMS/HCC) Take 1 tablet (10 mg) by mouth once per day 30 tablet 09/17/2024 10/19/2024 Discontinued (Reorder) 2 ml metoclopramide 5 mg/ml [...] of bedtime. take 2 tablets by mo [facility] twice daily midodrine (PROAMATINE) 5 MG tablet Take 10 mg by mouth 2 times daily 0 Active mirtazapine 30 mg oral tablet (20 sources) Start: 07-19-2024 End: 02-24-2025 take 1 tablet by mouth at bedtime [...] pain, # 20 tab(s), Refills(s) 0, Pharmacy: [facility]/pharmacy #[id number], 165, cm, 08/30/24 16:37:00 EST, Height/Length [...] release tablet 5 mg polyethylene glycol 3350 41824 mg powder for oral solution (2 sources) [...] of insulin ([facility]) , History of gastric bypass Take 1 [...] rimegepant 75 mg disintegrat ing oral tablet (17 sources) Start: 08-06-2024 Nurtec 75 MG t [...] of insulin ([facility]) , Dumping syndrome INJECT 0.5MG SUBCUTANEOUSLY ONCE [...] coma, without long-term current use of insulin ([facility]) Take 1 tablet (50 mg) by mouth [...] Chronic Attention-deficit, conduct, and disruptive behavior disorders (16 sources) Attention deficit hyperactivity disorder; Translations: [Attention-deficit [...] 2024 ED Clinical Summary ED Clinical Summary [place] [id number] ED Clinical Summary Person Information Name: RACHID MOJICA/[facility] Age: 33 Years : 1990 Sex: Female Language: Venezuelan PCP: NONA LANDRY DO Marital Status: Single [...] 09/28/2024 00:16:09 09/28/2024 00:16:09 09/28/2024 00:16:09 ADDRESS: [address] [place] [address] [phone] [facility] DOC NOTES: MEDICAL INFORMATION: Prescriptions Given: Medications [...] EDUCATION INFORMATION: Instructions: Follow up: DIAGNOSIS: [facility] ED Note-Physicianon 09-29-19 ED Note-Physician ED Note-Physician The patient left without being seen [facility] Comment on above: Result Comment: Elec tronically Signed By: David Thornton M.D..shanice\Date and Time Signed: 09/28/24 05:02 EST ED Patient Education Noteon 09-28-2024 ED Patient Education Note ED Patient Education Note [facility] ED Patient Summaryon 025 ED Patient Summary ED Patient Summary [address] [address] Patient Discharge Instructions Person Information Name: RACHID MOJICA Age: 33 Years Arrival Date: 09/27/2024 20:48:16 Discharge Diagnosis: Primary Care Physician: NONA LANDRY DO Provider Information Primary Provider: Advanced Solid Waste Facility Operator:None The exam and treatment you received in the Emergency Department were for an urgent problem and are not intended as complete care. It is important that you follow up with a doctor, nurse practitioner, or physician???s assistant therapy aide for ongoing care. If your symptoms become [...] opioids can be used to help relieve gycaxsiy-mh-hluebo pain and are often prescribed following a [...] be struggling with addiction, tell your health lead caregiver and ask for guidance or call [facility]???S National Helpline at 7-368-230-HELP. v Source: [place] Department of Health and Human Services/Center for Disease Control & Prevention [facility] Medicat (more content not included)... [facility] Coding Queryon 09-04-2024 Coding Query Coding [...] you! - From: Pedro Ward PA-C To: Laney Rodríguez; Sent: 09/04/2024 18:39:16 EST Subject: RE: Coding Query (Template) Caller Name: RACHID MOJICA; Caller Number: H Done. Thank you. [facility] ED Note-Physicianon 09-04-19 ED Note-Physician ED Note-Physician Basic Information Time [...] 2 or 3 Views Medications Administered Given [place] 325 mg-5 mg oral tablet, 1 tab(s), [...] LANDRY In 3 days 09/02/2024 EST [address] [place] [address] [phone] [facility] (1) Additional Instructions: Patient Education Lumbosacral [...] made to ensure accuracy, however, inadvertently computerized rodeo performer mistakes may be present. Appropriate healthcare PPE [...] on ice; Strain of lumbar region [facility] Comment on above: Result Comment: Elec tronically Signed By: Pedro Ward PA-C\.br\Date and Time Signed: 09/04/24 18:37 EST\.br\Electronically Co-Signed By: Jerrell Poretr DO\.br\Date and Time Co-Signed: 09/06/24 05:01 EST ED Clinical Summaryon 2024 ED Clinical Summary ED Clinical Summary [place] [id number] ED Clinical Summary [facility] Age[facility] 33 [facility] : 1990 Sex: Female Language: Venezuelan PCP: NONA LANDRY DO Marital Status: Single [...] 08/30/2024 18:13:24 08/30/2024 18:13:24 08/30/2024 18:13:24 ADDRESS: [address] [place] [phone] PHYS DOC NOTES: MEDICAL INFORMATION: Prescriptions Given: New Medications [id number], [address], [place] [phone], [phone] methocarbamol (Robaxin-750 oral tablet) 2 Tablets By [...] Follow up: With: Address: When: NONA LANDRY [address] [place], [place] [id number] [phone] Business (1) In 3 days 09/02/2024 DIAGNOSIS: Fall on ice; Strain of lumbar region [facility] ED Patient Summaryon 025 ED Patient Summary ED Patient Summary [address] [address] Patient Discharge Instructions Person Information Name: RACHID MOJICA Age: 33 Years Arrival Date: 08/30/2024 16:05:59 Discharge Diagnosis: Fall on ice; Strain of lumbar region Primary Care Physician: NONA LANDRY DO Provider Information Primary Provider: Jerrell Porter DO [employer] Operator:Pedro Ward PA-C The exam and treatment you received in the Emergency Department were for an urgent problem and are not intended as complete care. It is important that you follow up with a doctor, nurse practitioner, or physician???s assistant therapy aide for ongoing care. If your symptoms become worse or you do not improve as expected and you are unable to reach your usual health care provider, you should return to the Emergency Department. We are available 24 hours a day. RACHID MOJICA has been given the following list of patient education materials, prescriptions and follow-up instructions: Follow-up Instructions: With: Address: When: [place] [address] [phone] Business (1) In 3 days 09/02/2024 In the event that this physician does not participate in your insurance network, please consult with your insurance company to find a nearby participating provider. Patient Education Materials: Lumbosacral Strain A MESSAGE TO ALL PATIENTS REGARDING OPIOIDS PRESCRIPTION OPIOIDS: WHAT YOU NEED TO KNOW Prescription opioids can be used to help relieve ayieblgu-gr-idfcgf pain and are often prescribed following a [...] be struggling with addiction, tell your health lead caregiver a (more content not included)... [facility] XR Spine Cervical 2 or 3 [...] Hoff DO Transcribed by: TAMEKA Technologist: PETE [facility] XR Spine Lumbosacral 2 or 3 Viewson [...] Hoff DO Transcribed by: TAMEKA Technologist: PETE [facility] ED Note-Physicianon 08-27-19 ED Note-Physician ED Note-Physician Basic Information Time Seen: Cyrus Loen PA-C 08/26/2024 08:05 Chief Complaint pt reports [...] [facility]more content not included)... [facility] Comment on above: Result Comment: Elec tronically Signed By: Cyrus Leon PA-C\.br\Date and Time Signed: 08/26/24 08:21 EST\.br\Electronically Co-Signed By: Zafar Stephens DO.br\Date and Time Co-Signed: 08/27/24 16:27 EST ED Clinical Summaryon 2024 ED Clinical Summary ED Clinical Summary [address] [address] ED Clinical Summary Person Information Name: RACHID MOJICA/[facility] Age: 33 Years : 1990 Sex: Female Language: Venezuelan PCP: NONA LANDRY DO Marital Status: Single [...] 08/26/2024 08:20:44 08/26/2024 08:20:44 08/26/2024 08:20:44 ADDRESS: [address] [place] [address] [phone] PHYS DOC NOTES: MEDICAL INFORMATION: Prescriptions Given: New Medications [id number], [address], [place] [phone], [phone] amoxicillin-clavulan ate (Augmentin 875 mg oral tablet) [...] Sinus Infection, Adult Follow up: With: Address: Antoni: NONA [place] [address] [phone] Business (1) In 3 days 08/29/2024 DIAGNOSIS: Sinusitis [facility] ED Patient Summaryon 025 ED Patient Summary ED Patient Summary [address] [address] Patient Discharge Instructions Person Information Name: RACHID MOJICA Age: 33 Years Arrival Date: 08/26/2024 07:48:59 Discharge Diagnosis: Sinusitis Primary Care Physician: NONA LANDRY DO Provider Information Primary Provider: Zafar Stephens DO [employer] Facility Operator:Cyrus Leon PA-C The exam and treatment you received in the Emergency Department were for an urgent problem and are not intended as complete care. It is important that you follow up with a doctor, nurse practitioner, or physician???s assistant therapy aide for ongoing care. If your symptoms become worse or you do not improve as expected and you are unable to reach your usual health care provider, you should return to the Emergency Department. We are available 24 hours a day. RACHID MOJICA has been given the following list of patient education materials, prescriptions and follow-up instructions: Follow-up Instructions: With: Address: When: NONA [place] [address] [phone] Business (1) In 3 days 08/29/2024 In the event that this physician does not participate in your insurance network, please consult with your insurance company to find a nearby participating provider. Patient Education Materials: Sinus Infection, Adult A MESSAGE TO ALL PATIENTS REGARDING OPIOIDS PRESCRIPTION OPIOIDS: WHAT YOU NEED TO KNOW Prescription opioids can be used to help relieve omgkkplj-yc-pqvuhh pain and are often prescribed following a [...] be struggling with addiction, tell your health lead caregiver and ask for eduin (more content not included)... [facility] ALL BASIC METABOLIC PANELon 08-06-2024 Anion gap [Moles/Vol] 11.9 mmol/L NO [facility] Calcium [Mass/Vol] 9 mg/dL 8.5 - 10. 1 mg/dL [facility] Chloride [Moles/Vol] 105 mmol/L 98 - 10 7 mmol/L [facility] CO2 [Moles/Vol] 30.4 mmol/L 21.0 - 32.0 mmol/L [facility] Creatinine [Mass/Vol] 0.81 mg/dL 0.55 - 1.02 mg/dL [facility] GFR/1.73 sq M.predicted CKD-EPI (S/P/Bld) [Vol rate/Area] >60 >=60 mL/min/1.73m 2 [facility] Glucose [Mass/Vol] 88 mg/dL 74 - 106 mg/dL [facility] Interpretation and review of laboratory results Abnormal [facility] Potassium [Moles/Vol] 4.3 mmol/L 3.5 - 5.1 mmol/L [facility] Sodium [Moles/Vol] 143 mmol/L 136 - 145 mmol/L [facility] TBH EGFR-NON AF MALIAN >60 >=60 mL/min/1.73m 2 [facility] Urea nitrogen [Mass/Vol] 5 mg/dL Low 7.0 - 18.0 mg/dL [facility] Urea nitrogen/Creatinine [Mass ratio] 6.2 mg/mg [facility] ED Clinical Summaryon 2024 ED Clinical Summary ED Clinical Summary [place] [address] ED Clinical Summary Person Information Name: RACHID MOJICA/[facility] Age: 33 Years : 1990 Sex: Female Language: Venezuelan PCP: NONA LANDRY DO Marital Status: Single [...] 08/03/2024 08:03:28 08/03/2024 08:03:28 08/03/2024 08:03:28 ADDRESS: [address] [place] [address] [phone] PHYS DOC NOTES: MEDICAL INFORMATION: Prescriptions Given: New Medications [id number], [address], [place] [id number], [phone] amoxicillin-clavulan ate (Augmentin 875 mg-125 mg Tab) 1 Tablets By Mouth 2 times a day for 7 Days. Refills: 0. fluticasone nasal (Flonase 0.05 mg/inh [place]) 1 Sprays Nasal Inhalation 2 times a day for 7 Days. each nostril. Refills: 0. Medications to Continue with No Changes Other Medications promethazine (promethazine 12.5 mg oral tablet) 1 Tablets By Mouth every 4 hours as needed for nausea/vomiting. Refills: 0. PATIENT EDUCATION INFORMATION: Instructions: Follow up: With: Address: Antoni: [place] [address] [phone] Business (1) In 3 days DIAGNOSIS: Sinusitis [facility] ED Note-Physicianon 08-03-19 ED Note-Physician ED [...] just keep putting her on Claritin and iavw-qqx-cvptqyv medications and Sudafed. Patient states despite this [...] 1 tab(s), Oral, BID Flonase 0.05 mg/inh [place], 1 spray(s), Nasal, BID Follow-up With When Contact Information NONA LANDRY In [place] [address] [phone] [facility] (1) Additional Instructions: Problem List/Past Medical History Ongoing No qualifying data Historical No qualifying data Medications Inpatient No active inpatient medications Home Augmentin 875 mg-125 mg Tab, 1 tab(s), Oral, BID Flonase 0.05 mg/inh [place], 1 spray(s), Nasal, BID promethazine 12.5 mg oral tablet, 12.5 mg= 1 tab(s), Oral, q4hr, PRN Allergies No Known Allergies Social History Alcohol - Denies Alcoho (more content not included)... [facility] Comment on above: Result Comment: Elec tronically Signed By: Daryn Roman DO\.br\Date and Time Signed: 08/03/24 07:53 EST ED Patient Education Noteon 08-03-2024 ED Patient Education Note ED Patient Education Note [facility] ED Patient Summaryon 025 ED Patient Summary ED Patient Summary [address] [address] Patient Discharge Instructions Person Information Name: RACHID MOJICA Age: 33 Years Arrival Date: 08/03/2024 07:33:20 Discharge Diagnosis: Sinusitis Primary Care Physician: NONA LANDRY DO Provider Information Primary Provider: Daryn Roman DO [employer] Operator:None The exam and treatment you received in the Emergency Department were for an urgent problem and are not intended as complete care. It is important that you follow up with a doctor, nurse practitioner, or physician???s assistant therapy aide for ongoing care. If your symptoms become worse or you do not improve as expected and you are unable to reach your usual health care provider, you should return to the Emergency Department. We are available 24 hours a day. RACHID MOJICA has been given the following list of patient education materials, prescriptions and follow-up instructions: Follow-up Instructions: With: Address: When: [place] [phone] Business (1) In 3 days In the event that this physician does not participate in your insurance network, please consult with your insurance company to find a nearby participating provider. Patient Education Materials: A MESSAGE TO ALL PATIENTS REGARDING OPIOIDS PRESCRIPTION OPIOIDS: WHAT YOU NEED TO KNOW Prescription opioids can be used to help relieve kdawzrxy-al-xgwfvz pain and are often prescribed following a [...] be struggling with addiction, tell your health lead caregiver and ask for guidance or call [facility]???S National Helpline at 3-592-477-KODW. (more content not included)... Normal [facility] ED Note-Physicianon 07-01-20 ED Note-Physician ED [...] nausea/vomiting, # 20 tab(s), Refills(s) 0, Pharmacy: [facility]/pharm[facility] #[id number], 165, cm, 06/30/24 17:00:00 EST, Height/Length [...] 3 days 07/03/2024 EST [address] [place] [address]- [phone] [facility] (1) Additional Instructions: Call to schedule a follow-up appointment with your family physician in the next 2 to 3 days. Use the Phenergan as needed for nausea. Return to the ED with any new or worsening symptoms. Patient Education Nausea and Vomiting, Adult, Itea-qi-Pvxz Attestation Patient seen and evaluated by the physician assistant therapy aide. Attending physician was present in the emergency department and supervised care. This visit was performed by both the physician and an APC. I performed all aspects of the MDM as documented. This report was transcribed using voice recognition software. Every effort was made to ensure accuracy, however, inadvertently computerized rodeo performer mistakes may be present. I performed a [...] Tobacco Use (more content not included)... Normal [facility] Comment on above: Result Comment: Elec tronically Signed By: Heidi Porter PA-C\.br\Date and Time Signed: 06/30/24 22:36 EST\.br\Electronically Co-Signed By: Jerrell Porter DO\.br\Date and Time Co-Signed: 07/01/24 07:07 EST ED Clinical Summaryon 2023 ED Clinical Summary ED Clinical Summary [place] [id number] ED Clinical Summary Person Information [facility]: [facility] Age[facility] 33 Years : 1990 Sex: Female Language: Venezuelan PCP: NONA LANDRY DO Marital Status: Single [...] 06/30/2024 18:30:46 06/30/2024 18:30:46 06/30/2024 18:30:46 ADDR[address]: [address] [facility] [id number] PHYS DOC NOTES: MEDICAL INFORMATION: Prescriptions Given: New Medications [id number], [address], [place] [id number], [phone] promethazine (promethazine 12.5 mg oral tablet) 1 Tablets By Mouth every 4 hours as needed for nausea/vomiting. Refills: 0. PATIENT EDUCATION INFORMATION: Instructions: Nausea and Vomiting, Adult, Xonv-zp-Amgj Follow up: With: Address: When: NONA LANDRY [address] [place] [phone] [employer] (1) In 3 days 07/03/2024 Comments: Call to schedule a follow-up appointment with your family physician in the next 2 to 3 days. Use the Phenergan as needed for nausea. Return to the ED with any new or worsening symptoms. DIAGNOSIS: Nausea Normal [facility] ED Patient Summaryon ED Patient Summary ED Patient Summary [address] [address] Patient Discharge Instructions Person Information Name: RACHID MOJICA Age: 33 Years Arrival Date: 06/30/2024 16:54:04 Discharge Diagnosis: Nausea Primary Care Physician: NONA LANDRY DO Provider Information Primary Provider: Jerrell Porter DO [employer] Operator:Heidi Porter PA-C The exam and treatment you received in the Emergency Department were for an urgent problem and are not intended as complete care. It is important that you follow up with a doctor, nurse practitioner, or physician???s assistant therapy aide for ongoing care. If your symptoms become [...] With: Address: When: NONA LANDRY [address] [place] [phone] [employer] (1) In 3 days 07/03/2024 Comments: Call [...] Patient Education Materials: Nausea and Vomiting, Adult, Nehg-bm-Wvqn A MESSAGE TO ALL PATIENTS REGARDING OPIOIDS PRESCRIPTION OPIOIDS: WHAT YOU NEED TO KNOW Prescription opioids can be used to help relieve lqjepdwd-th-ejksnr pain and are often prescribed following a [...] (www.fda.gov/Drugs/R esourcesFo (more content not included)... Normal [facility] SEROLOGYOrdered By: Dennis Goodman on 06-30-2024 HCG.beta subunit (U) [Moles/Vol] Negative Normal [facility] S[place] U BetaHcg Qualon 06-30-2024 HCG.beta subunit (U) [Moles/Vol] Negative Normal [facility] Comment on above: Performed By: #### 2 [id number] #### [facility] [address] [place] [address] UA with Cult Rflxon 06-30-20 24 Bilirubin Ql (U) Negative Normal Negative [facility] Comment on above: Performed By: #### 4 [id number] #### [facility] [address] [place] [address] Clarity (U) Clear Normal Clear [facility] Comment on above: Performed By: #### 4 [id number] #### [facility] [address] [place] [address] Color (U) Light-Yellow Normal Yellow [facility] Comment on above: Result Comment: Micr oscopic readings are only performed on those samples that meet specific criteria set forth by [facility]. Performed By: #### 4 [id number] #### [facility] [address] [place] [address] Glucose Ql (U) Negative Normal Negative [facility] Comment on above: Performed By: #### 4 [id number] #### [facility] [address] [place] [address] Hemoglobin Auto test strip (U) [Mass/Vol] Negative Normal Negative [facility] Comment on above: Performed By: #### 4 [id number] #### [facility] [address] [place] [address] Ketones Auto test strip Ql (U) Negative Normal Negative [facility] Comment on above: Performed By: #### 4 [id number] #### [facility] [address] [place] [address] Leukocyte esterase Auto test strip Ql (U) Negative Normal Negative [facility] Comment on above: Performed By: #### 4 [id number] #### [facility] [address] [place] [address] Nitrite Auto test strip Ql (U) Negative Normal Negative [facility] Comment on above: Performed By: #### 4 [id number] #### [facility] [address] [place] [address] pH (U) 5.5 [pH] Invalid Interpretation Code 5.0-9.0 [facility] Comment on above: Performed By: #### 4 [id number] #### [facility] [address] [place] [address] Protein Ql (U) Negative Normal Negative [facility] Comment on above: Performed By: #### 4 [id number] #### [facility] [address] [place] [address] Specific gravity (U) [Rel density] 1.025 Invalid Interpretation Code 1.005-1.030 [facility] Comment on above: Performed By: #### 4 [id number] #### [facility] [address] [place] [address] Urobilinogen (U) [Mass/Vol] Negative Normal Negative [facility] Comment on above: Performed By: #### 4 [id number] #### [facility] [address] [place] [address] Type of Urine collection method Clean Catch Normal [facility] Comment on above: Performed By: #### 4 [id number] #### [facility] [address] [place] [address] URINALYSISOrdered By: SYSTEM SYSTEM on 06-30-2024 Bilirubin [...] that meet specific criteria set forth by [facility]. Glucose Ql (U) Negative Normal [...] Interpretation and review of laboratory results Normal [facility] - Hematology and Cell countson 04-02-2024 HbA1c (Bld) [Mass fraction] 5.0 % [facility] 36on 11-10-2023 36 I spoke with Sarahy Black with [employer] today, the medication has been denied, it is not covered with the patient's diagnosis. There are 3 diagnosis's that are covered, the patient's diagnosis is not one of them. Denial letter to be faxed and scanned. [facility] 10-13-2023 36 Left a second voicemail for patient requesting a return call regarding appeal [facility] 3610-11-2023 36 Received appeal forms, there are a few sections the patient needs to complete before it can be submitted. I called and left a voicemail for Rachid to contact our office. [facility] 3610-07-2023 36 Spoke with Radha Smith with [employer], associate customer support. She is faxing forms for the appeal. [phone] Ref# [id number] [facility] 3610-06-2023 36 Lisa with [facility] called back, they do not have the appeal forms and recommended starting a new PA. They are unable to start the PA on CMM. PA through [employer]. [facility] 36 Pharmacy is faxing appeal forms to our office. [facility] Refillon 10-04-2023 Refill [id number] Rachid Mojica 1990 F Date Provider Department Center 10/04/2023 SONIYA RANGEL [facility] Family History Family Status - Relation Status Age at Mother Alive Father Alive Reason for Visit and Comments: Med Refill [[id number]] [facility] Orders Onlyon 09-26-2023 Orders Only [id number] Rachid Mojica 1990 F Date Provider Department Center 09/26/2023 SONIYA RANGEL [facility] ENDOCR [facility] Family History Family Status - Relation Status Age at Mother Alive Father Alive [facility] Refillon 08-03-2023 Refill [id number] Rachid Mojica 1990 F Date Provider Department Center 08/03/2023 LUNA CASTRO*[facility] ENDOCR [facility] Family History Family Status - Relation Status Age at Mother Alive Father Alive Reason for Visit and Comments: Med Refill [[id number]] [facility] Orders Onlyon 07-26-2023 Orders Only [id number] Nicolas 1990 F Date Provider Department Center 07/26/2023196561088-BITDLYEGVXLUNA LAMAR*[facility] ENDOCR [facility] Family History Family Status - Relation Status Age at Mother Alive Father Alive [facility] Orders Onlyon 07-12-2023 Orders Only [id number] Rachid Mojica 1990 F Date Provider Department Center 07/12/2023 4078-KESHAV RIVEROA [facility] ENDOCR [facility] Family History Family Status - Relation Status Age at Mother Alive Father Alive [facility] Patient Messageon 07-12-2023 Patient Message [id number] Nicolas 1990 F Date Provider Department Center 07/12/202303146-HHRPMUTIFFANIE SHETH [facility] SURG Second Fl Chart Close Cosign Required by: Rogerio Quintanilla MD[[id number]] Family History Family Status - Relation Status Age at Mother Alive Father Alive [facility] 36on 07-01-2023 36 [facility] faxed PA denied for Octreotide Acetate on 06/29/2023 [facility] 36on 06-29-2023 36 PA initiated through cover my meds Rachid Mojica (Mares: [id number]) - [phone] Need help? Call us at [facility] The plan will fax you a determination, typically within 1 to 5 business days. How do I follow up? Drug Octreotide Acetate 50MCG/ML solution Form [facility] Follow-Upon 06-27-2023 Follow-Up [id number] Nicolas 1990 F Date Provider Department Center 06/27/2023 SONIYA RANGEL [facility] ENDOCR [facility] Family History Family Status - Relation Status Age at Mother Alive Father Alive Level of Service:96998 [place] OFFICE/OUTPATIENT ESTABLISHED MOD MDM 30-39 MIN (GC,25) Reason for Visit and Comments: Follow-up [[id number]] - Patient feels medication still not working. [facility] Patient Messageon 06-20-2023 Patient Message [id number] Rachid Mojica 1990 F Date Provider Department [place] 06/20/2023 4078-ARSLAN RIVEROEBA [facility] ENDOCR [facility] Family History Family Status - Relation Status Age at Mother Alive Father Alive [facility] Refillon 06-08-2023 Refill [id number] Nicolas 1990 F Date Provider Department [place] 06/08/2023 4078-MAT, ARSLANEBA [facility] ENDOCR [facility] Family History Family Status - Relation Status Age at Mother Alive Father Alive Reason for Visit and Comments: Med Refill [[id number]] [facility] Follow-Upon 03-07-2023 Follow-Up [id number] Rachid Mojica 1990 F Date Provider Department [place] 03/07/2023 4078-KESHAV RIVEROA [facility] ENDOCR [facility] Family History Family Status - Relation Status Age at Mother Alive Father Alive Level of Service:33280 [place] OFFICE/OUTPATIENT ESTABLISHED MOD MDM 30-39 MIN (GC) Reason for Visit and Comments: Follow-up [924162] [facility] Orders Onlyon 01-06-2023 Orders Only [id number] Rachid Mojica 1990 F Date Provider Department [place] 01/06/2023 3240-DIMITRY VARNER [facility] ENDOCR [facility] Family History Family Status - Relation Status Age at Mother Alive Father Alive [facility] 37on 12-27-2022 37 Follow up in 4-6 weeks [facility] Follow-Upon 12-27-2022 Follow-Up [id number] Rachid Mojica 1990 F Date Provider Department Center 12/27/2022 4075DAVIS CASTELLON [facility] ENDOCR [facility] Family History Family Status - Relation Status Age at Mother Alive Father Alive Level of Service:63813 [place] OFFICE/OUTPATIENT ESTABLISHED MOD MDM 30-39 MIN (GC) Reason for Visit and Comments: Follow-up [622682] - Hypoglycemia Normal [facility] Office Visiton 12-23-2022 Follow-up visit [id number] Rachid Mojica 1990 F Date Provider Department Center 12/23/202204114-XUPOVVESLPLUNA LAMAR*[facility] ENDOCR [facility] Family History Family Status - Relation Status Age at Mother Alive Father Alive Level of Service:47966 [place] OFFICE/OUTPATIENT NEW LOW MDM 30-44 MINUTES Reason for Visit and Comments: New Patient [632] - New Patient. Having issues with her sugar. Normal [facility] .UA Microscp Aon 03-29-2021 UA Hyline Cast Qual 0-2 Normal Negative [facility] Comment on above: Performed By: #### C [id number] #### [place] [address] UA Mucus Present Abnormal Absent [facility] Comment on above: Performed By: #### C D:[id number] #### [place] [id number] UA RBC Quant 0 /HPF Normal 0-5 [facility] Comment on above: Performed By: #### C D:[id number] #### [place] [id number] UA Squepi Cells Quant 6 /HPF Normal 0-29 [facility] Comment on above: Performed By: #### C D:[id number] #### [place] [id number] UA WBC Quant 1 /HPF Normal 0-5 [facility] Comment on above: Performed By: #### C D:[id number] #### [address] [address] .eGFRon 03-29-2021 eGFR Non-AA >60 Normal >=60 [facility] Comment on above: Result Comment: Stag es [...] years Performed By: #### E GFR #### [address] [address] eGFR AA >60 Normal >=60 [facility] Comment on above: Result Comment: See comment. Performed By: #### E GFR #### [address] [address] Basic Metabolic Profileon Creatinine [Mass/Vol] 0.90 mg/dL Normal 0.44-1.03 [facility] Comment on above: Performed By: #### C [id number] #### [address] [address] Urea nitrogen [Mass/Vol] 12 mg/dL Normal 8-26 [facility] Comment on above: Performed By: #### C [id number] #### [address] [address] Urea nitrogen/Creatinine [Mass ratio] 13.3 mg/mg Normal 10.0-20.0 [facility] Comment on above: Performed By: #### C [id number] #### [address] [address] Anion gap [Moles/Vol] 13 mmol/L Normal 7-17 [facility] Comment on above: Performed By: #### C D:[id number] #### [address] [address] Calcium [Mass/Vol] 8.9 mg/dL Normal 8.5-10.3 [facility] Comment on above: Performed By: #### C D:[id number] #### [address] [address] Chloride [Moles/Vol] 108 mmol/L Normal 98-110 [facility] Comment on above: Performed By: #### C [id number] #### [address] [address] CO2 [Moles/Vol] 19 mmol/L Low 22-32 [facility] Comment on above: Performed By: #### C D:[id number] #### [address] [address] Glucose [Mass/Vol] 90 mg/dL Normal 70-99 [facility] Comment on above: Performed By: #### C D:[id number] #### [address] [address] Potassium [Moles/Vol] 3.6 mmol/L Normal 3.4-4.8 [facility] Comment on above: Performed By: #### C D:[id number] #### [address] [address] Sodium [Moles/Vol] 136 mmol/L Normal 133-142 [facility] Comment on above: Performed By: #### C D:[id number] #### [address] [address] CBC w/ Diffon 03-29-2021 Erythrocyte distribution width (RBC) [Ratio] 12.9 % Normal 11.6-14.8 [facility] Comment on above: Performed By: #### C BC #### [address] [address] Hematocrit (Bld) [Volume fraction] 44.4 % Normal 36.0-46.0 [facility] Comment on above: Performed By: #### C BC #### [address] [address] Hemoglobin (Bld) [Mass/Vol] 15.1 g/dL Normal 12.0-16.0 [facility] Comment on above: Performed By: #### C BC #### [address] [address] MCH (RBC) [Entitic mass] 31.8 pg Normal 27.0-35.0 [facility] Comment on above: Performed By: #### C BC #### [address] [address] MCHC 34.0 % Normal 31.0-37.0 [facility] Comment on above: Performed By: #### C BC #### [place] [address]40 MCV (RBC) [Entitic vol] 93.4 fL Normal 80.0-100.0 [facility] Comment on above: Performed By: #### C BC #### [address] [address] Platelet 190 x10*3/mcL Normal 150-350 [facility] Comment on above: Performed By: #### C BC #### [address] [address] Platelet mean volume (Bld) [Entitic vol] 8.7 fL Normal 6.7-10.6 [facility] Comment on above: Performed By: #### C BC #### [address] [address] RBC 4.75 x10*6/mcL Normal 3.80-5.20 [facility] Comment on above: Performed By: #### C BC #### [address] [address] WBC 9.5 x10*3/mcL Normal 4.5-11.0 [facility] Comment on above: Performed By: #### C BC #### [address] [address] CRPon 03-29-2021 CRP [Mass/Vol] mg/L Normal 0.00-0.75 [facility] Comment on above: Result Comment: CRP measurement is useful for assessment of non-specific INFLAMMATORY RESPONSE to infection or injury AND is a sensitive MARKER of ACUTE INFLAMMATION including CARDIAC RISK ASSESSMENT. CARDIAC patients with elevated CRP are POTENTIALLY at a HIGHER RISK OF FUTURE CARDIAC EVENTS. Performed By: #### C #### [facility] [address] [place] [address] CT Abdomen Pelvis w/ IV Cont [facility] 03-29-2021 CT Abdomen Pelvis w/ IV Contrast [...] partial bowel resection, hysterectomy. Radiation Dose Estimate: CTDI(mGy):0.607655 / / / kVp:120.699412 / mAs:0.465001 / / / DLP(mGy-cm):4.219753 Body Part: Abdomen CTDI(mGy):11.297314 / / / kVp:100.359150 / mAs:158.799148 / / / DLP(mGy-cm):553.7199 71Body Part: Abdomen Final Dictated by: Justino Whitman MD Dictated DT/TM: 03.29.2021 4:30 pm Signed by: Justino Whitman MD Signed (Electronic Signature): 03.29.2021 4:44 pm Transcribed DT/TM: 03.29.2021 4:42 pm (If Report Is Signed, Electronically Signed in Other Vendor System) Normal [facility] Diff Autoon 03-29-2021 Baso Absolute 0.0 x10*3/mcL Normal 0.0-0.2 [facility] Comment on above: Performed By: #### . Automated Diff #### [address] [address] Basophils/100 WBC (Bld) 0.5 % Normal 0.0-1.5 [facility] Comment on above: Performed By: #### . Automated Diff #### [address] [address] Eos Absolute 0.1 x10*3/mcL Normal 0.0-0.4 [facility] Comment on above: Performed By: #### . Automated Diff #### [address] [address] Eosinophils/100 WBC (Bld) 1.3 % Normal 0.0-5.4 [facility] Comment on above: Performed By: #### . Automated Diff #### [address] [address] Lymph Absolute 5.2 x10*3/mcL High 1.0-4.8 [facility] Comment on above: Performed By: #### . Automated Diff #### [address] [address] Lymphocytes/100 WBC (Bld) 54.8 % High 27.2-40.8 [facility] Comment on above: Performed By: #### . Automated Diff #### [address] [address] [place] Absolute 0.7 x10*3/mcL Normal 0.1-1.1 [facility] Comment on above: Performed By: #### . Automated Diff #### [place] [address] Monocytes/100 WBC (Bld) 7.3 % Normal 3.7-11.9 [facility] Comment on above: Performed By: #### . Automated Diff #### [address] [address] Neutro Absolute 3.4 x10*3/mcL Normal 1.8-7.7 [facility] Comment on above: Performed By: #### . Automated Diff #### [place] [address]40 Neutro Auto 36.1 % Low 47.2-70.8 [facility] Comment on above: Performed By: #### . Automated Diff #### [address] [address] ED Clinical Summaryon 2020 ED Clinical Summary [place] [id number] ED Clinical Summary Person Information Name: Rachid Mojica/[facility] Age: 30 Years : 1990 Sex: Female PCP: Marital Status: Phone: Race: White Ethnicity: Not or Language: Venezuelan Visit Reason: Abdominal pain; Abdominal pain Acuity: 3 Enc Type: Emergency Med Service: Emergency Medicine Arrival: 03/29/2021 11:50:50 Discharge: 03/29/2021 18:01:00 LOS: 000 06:11 Checkin: 03/29/2021 11:50:50 Checkout: 03/29/2021 18:01:00 Dispo Type: Home or Self Care Address: [address] [place] [address] Provider Notes: Diagnosis: 1:RLQ abdominal pain; 2:Endometriosis; [...] range between ( 27.2 and 40.8 ) [place] Auto: 7.3 % -- Normal range between [...] range between ( 36.0 and 46.0 ) [place] Absolute: 0.7 x10 MCH: 31.8 pg -- [...] Visit Final Med List: New Medications DARIOMG [address] [place], [place] [id number], [phone] hydrocodone-acetamin ophen ([place] 5 mg-325 mg oral tablet) 1 Tabs Oral (given by mouth) every 6 hours as needed as needed for pain for 3 Days. Refills: 0. Last Dose: ibuprofen (ibuprofen 800 mg oral tablet) 1 Tabs Oral (given by mouth) 3 times a day as needed for pain. Refills: 0. Last Dose: (more content not included)... Normal [facility] ED Note-Physicianon 03-29-20 ED Note-Physician Chief Complaint [...] qualifying data available (MRI) Aundrea [place] Normal [facility] Hep Func Panelon 03-29-2021 Albumin [Mass/Vol] 4.2 g/dL Normal 3.2-4.9 [facility] Comment on above: Performed By: #### L IVER #### [facility] [address] [place] [address] Alk Phos 48 IU/L Normal 32-91 [facility] Comment on above: Performed By: #### L IVER #### [facility] [address] [place] [address] ALT [Catalytic activity/Vol] 25 U/L Normal 14-54 [facility] Comment on above: Performed By: #### L IVER #### [facility] [address] [place] [address] AST [Catalytic activity/Vol] 26 U/L Normal 15-41 [facility] Comment on above: Performed By: #### L IVER #### [address] [address] Bili Direct 0.2 mg/dL Normal 0.1-0.5 [facility] Comment on above: Performed By: #### L IVER #### [address] [address] Bili Indirect 0.6 mg/dL Normal 0.0-1.0 [facility] Comment on above: Performed By: #### L IVER #### [address] [address] Bili Total 0.8 mg/dL Normal 0.3-1.2 [facility] Comment on above: Performed By: #### L IVER #### [address] [address] Protein [Mass/Vol] 7.3 g/dL Normal 6.5-8.1 [facility] Comment on above: Performed By: #### L IVER #### [address] [address] Lipaseon 03-29-2021 Lipase Lvl 29 IU/L Normal 22-51 [facility] Comment on above: Performed By: #### L IP #### [address] [address] UA w Culture if Indon 2020 Color (U) Yellow Normal [facility] Comment on above: Performed By: #### U CI #### [address] [address] Ketones Ql (U) Negative Normal Negative [facility] Comment on above: Performed By: #### U CI #### [address] [address] UA Blood Negative Normal Negative [facility] Comment on above: Performed By: #### U CI #### [address] [address] UA Clarity Clear Normal [facility] Comment on above: Performed By: #### U CI #### [address] [place] [address] UA Glucose Normal Normal Negative [facility] Comment on above: Performed By: #### U CI #### [address] [place] [address] UA Leukocyte Esterase Negative Normal Negative [facility] Comment on above: Performed By: #### U CI #### [address] [address] UA Nitrite Negative Normal Negative [facility] Comment on above: Performed By: #### U CI #### [address] [place] [address] UA pH 5.5 Normal 4.5 - 7.8 [facility] Comment on above: Performed By: #### U CI #### [address] [place] [address] UA Protein 10 mg/dL Normal Negative [facility] Comment on above: Performed By: #### U CI #### [address] [place] [address] UA Source Clean Catch Normal [facility] Comment on above: Performed By: #### U CI #### [address] [place] [address] UA Spec Grav 1.027 Normal 1.003-1.035 [facility] Comment on above: Performed By: #### U CI #### [address] [place] [address] UA Urobilinogen Normal Normal 0.2 - 1.0 [facility] Comment on above: Performed By: #### U CI #### [facility] [address] [place] [address], [place] [address] Urobilinogen (U) [Mass/Vol] Negative Normal Negative [facility] Comment on above: Performed By: #### U CI #### [address] [place] [address] US Transvaginal w/ Duplexon 03-29-2021 US Transvaginal [...] Electronically Signed in Other Vendor System) Normal [facility] Surgical Pathologyon 020 Surgical Pathology (NOTE) -- [...] SURGICAL PATHOLOGY CONSULTATION Patient Name: RACHID MOJICA [facility] Rec: [id number] Path Number: [id number] [facility] ANATOMIC PATHOLOGY [address] [place] [id number] Normal [facility] Comment on above: Performed By: #### P PPVS #### [email or web address] [address] [place] [address] Lockstitch Collar Setter: John Yancey MD COVID-19 Ambulatoryon 2019 SARS-CoV-2, MILLICENT Not Detected Not Detected [place], [place] Comment on above: (NOTE) This test was developed and its performance characteristics determined by [employer]. This test has not been FDA cleared [...] detected) result in this assay. Performed At: [facility] [address] [facility], [place] [id number] Melly Butler MD Ph:[phone] [id number] 01-02-2020 SARS-CoV-2 Not Detected Normal Not Detected [facility] Comment on above: Result Comment: (NOT E) This test was developed and its performance characteristics determined by [employer]. This test has not been FDA cleared [...] detected) result in this assay. Performed At: [facility] [address] [facility] [place] [id number] Melly Butler MD Ph:[phone] Performed By: #### C DP, CP, LIP #### [facility] [address] [place] [address] Lockstitch Collar Setter: Kd Page MD Basic Metab w/rfx MGon 12-15 (cont.) Normal [facility] Comment on above: Result Comment: Aver age GFR for 30-39 years old: 107 mL/min/1.73sq m Chronic Kidney Disease: <60 mL/min/1.73sq m Kidney failure: <15 mL/min/1.73sq m eGFR calculated using average adult body mass. Additional eGFR calculator available at: http://www.[employer]/multiple_crcl_2012.htm Performed By: #### C DP, BMPX #### [address] [id number] Lock[employer] Collar Setter: John Yancey MD Anion gap [Moles/Vol] 13 mmol/L Normal 9-17 [facility] Comment on above: Performed By: #### C DP, BMPX #### [address] [address] [employer] Col[employer] Setter: John Yancey MD Calcium [Mass/Vol] 8.5 mg/dL Low 8.6-10.4 [facility] Comment on above: Performed By: #### C DP, BMPX #### [address] [id number] Lock[employer] Collar Setter: John Yancey MD Chloride [Moles/Vol] 103 mmol/L Normal 98-107 [facility] Comment on above: Performed By: #### C DP, BMPX #### [address] [address] Lock[employer] Col[employer] Setter: John Yancey MD CO2 [Moles/Vol] 21 mmol/L Normal 20-31 [facility] Comment on above: Performed By: #### C DP, BMPX #### [address] [address] Lock[employer] Collar Setter: John Yancey MD Creatinine [Mass/Vol] 0.55 mg/dL Normal 0.50-0.90 [facility] Comment on above: Performed By: #### C DP, BMPX #### [address] [address] Lock[employer] Collar Setter: John Yancey MD GFR, Amer >60 Normal >60 [facility] Comment on above: Performed By: #### C DP, BMPX #### [address] [address] Lock[employer] Collar Setter: John Yancey MD GFR,non Amer >60 Normal >60 [facility] Comment on above: Performed By: #### C DP, BMPX #### [address] [address] Lock[employer]ch Collar Setter: John Yancey MD Glucose [Mass/Vol] 83 mg/dL Normal 70-99 [facility] Comment on above: Performed By: #### C DP, BMPX #### [address] [address] Lock[employer] Collar Setter: John Yancey MD Potassium [Moles/Vol] 3.8 mmol/L Normal 3.7-5.3 [facility] Comment on above: Performed By: #### C DP, BMPX #### [address] [address] Lock[employer] Collar Setter: John Yancey MD Sodium [Moles/Vol] 137 mmol/L Normal 135-144 [facility] Comment on above: Performed By: #### C DP, BMPX #### [facility] [employer] [address] [place], [place] [phone] Lock[employer] Col[employer] Setter: John Yancey MD Urea nitrogen [Mass/Vol] 9 mg/dL Normal 6-20 [facility] Comment on above: Performed By: #### C DP, BMPX #### [facility] [place], [place] [phone] Lock[employer] Col[employer] Setter: John Yancey MD Staging: NOT REPORTED Normal [facility] Comment on above: Performed By: #### C DP, BMPX #### [facility] [address] [place] [phone] Lock[employer] Col[employer] Setter: John Yancey MD Bun/Cre Ratio NOT REPORTED Normal - [place], [place] Comment on above: Performed By: #### C DP, BMPX #### [facility] [employer] [address] [place] [phone] [employer] Col[employer] Setter: John Yancey MD Basic Metabolic Panel w/ Ref devendra to [facility] 12-16-2019 Anion gap [Moles/Vol] 13 mmol/L 9 - 17 mmol/L [place] Calcium [Mass/Vol] 8.5 mg/dL Low 8.6 - 10. 4 mg/dL [place] Chloride [Moles/Vol] 103 mmol/L 98 - 10 7 mmol/L [place] CO2 [Moles/Vol] 21 mmol/L 20 - 31 mmol/L [place] Creatinine [Mass/Vol] 0.55 mg/dL 0.5 - 0.9 mg/dL [place] GFR >60 >60 mL/min [place] GFR Non- >60 >60 mL/min [place] GFR/1.73 sq M predicted among non-blacks MDRD (S/P/Bld) [Vol rate/Area] [place] Comment on above: Average GFR for 30-3 9 years old: 107 mL/min/1.73sq m Chronic Kidney Disease: <60 mL/min/1.73sq m Kidney failure: <15 mL/min/1.73sq m eGFR calculated using average adult body mass. Additional eGFR calculator available at: http://www.[employer]/multiple_crcl_2012.htm GFR/1.73 sq M predicted among non-blacks MDRD (S/P/Bld) [Vol rate/Area] NOT REPORTED [place] Glucose [Mass/Vol] 83 mg/dL 70 - 99 mg/dL [place] Interpretation and review of laboratory results Abnormal [place] Potassium [Moles/Vol] 3.8 mmol/L 3.7 - 5.3 mmol/L [place] Sodium [Moles/Vol] 137 mmol/L 135 - 144 mmol/L [place] Urea nitrogen [Mass/Vol] 9 mg/dL 6 - 20 mg/dL [place] CBC auto differentialon 05- Basophils (Bld) [#/Vol] 0.05 10*3/uL [place] Basophils/100 WBC (Bld) 1 % 0 - 2 % [place] Differential Type NOT REPORTED [place] Eosinophils (Bld) [#/Vol] 0.26 10*3/uL [place] Eosinophils/100 WBC (Bld) 5 % High 1 - 4 % [place] Erythrocyte distribution width (RBC) [Ratio] 12.2 % 11.8 - 14.4 % [place] Hematocrit (Bld) [Volume fraction] 41.6 % 36.3 - 47.1 % [place] Hemoglobin (Bld) [Mass/Vol] 13.5 g/dL 11.9 - 15.1 g/dL [place] Immature granulocytes (Bld) [#/Vol] 0 % 0 [place] Immature granulocytes (Bld) [#/Vol] 10*3/uL [place] Interpretation and review of laboratory results Abnormal [place] Lymphocytes (Bld) [#/Vol] 2.38 10*3/uL [place] Lymphocytes/100 WBC (Bld) 41 % 24 - 43 % [place] MCH (RBC) [Entitic mass] 31.0 pg 25.2 - 33.5 pg [place] MCHC (RBC) [Mass/Vol] 32.5 g/dL 28.4 - 34.8 g/dL [place] MCV (RBC) [Entitic vol] 95.4 fL 82.6 - 102.9 fL [place] Monocytes (Bld) [#/Vol] 0.51 10*3/uL [place] Monocytes/100 WBC (Bld) 9 % 3 - 12 % [place] Platelet mean volume (Bld) [Entitic vol] 10.6 fL 8.1 - 13.5 fL [place] Platelets (Bld) [#/Vol] 154 10*3/uL [place] RBC (Bld) [#/Vol] 4.36 10*6/uL 3.95 - 5.1 1 m/uL [place] Segmented neutrophils/100 WBC (Bld) 44 % 36 - 65 % [place] Segs Absolute 2.54 [place] WBC (Bld) [#/Vol] 0.0 10*3/uL 0.0 per 10 0 WBC [place] WBC (Bld) [#/Vol] 5.8 10*3/uL [place] CBC with Diffon 12-16-2019 Abs. Basophil 0.05 k/uL Normal 0.00-0.20 [facility] Comment on above: Performed By: #### C DP, BMPX #### [facility] [place] [address] Lockstitch Collar Setter: John Yancey MD Abs.Imm.Granulocyte <0.03 Normal 0.00-0.30 [facility] Comment on above: Performed By: #### C DP, BMPX #### [facility] [employer] [facility] [place] [address] Lockstitch Collar Setter: John Yancey MD Abs.Neutrophil (Seg) 2.54 k/uL Normal 1.50-8.10 [facility] Comment on above: Performed By: #### C DP, BMPX #### [address] [address] Lock[employer] Col[employer] Setter: John Yancey MD Basophils/100 WBC (Bld) 1 % Normal 0-2 M [facility] Comment on above: Performed By: #### C DP, BMPX #### [place] [address] Lock[employer] Col[employer] Setter: John Yancey MD Eosinophils (Bld) [#/Vol] 0.26 10*3/uL Normal 0.00-0.44 [facility] Comment on above: Performed By: #### C DP, BMPX #### [address] [address] Lock[employer] Col[employer] Setter: John Yancey MD Eosinophils/100 WBC (Bld) 5 % High 1-4 [facility] Comment on above: Performed By: #### C DP, BMPX #### [address] [address] Lock[employer] Collar Setter: John Yancey MD Erythrocyte distribution width (RBC) [Ratio] 12.2 % Normal 11.8-14.4 [facility] Comment on above: Performed By: #### C DP, BMPX #### [address] [address] Lock[employer] Collar Setter: John Yancey MD Hematocrit (Bld) [Volume fraction] 41.6 % Normal 36.3-47.1 [facility] Comment on above: Performed By: #### C DP, BMPX #### [address] [address] Lock[employer] Collar Setter: John Yancey MD Hemoglobin (Bld) [Mass/Vol] 13.5 g/dL Normal 11.9-15.1 [facility] Comment on above: Performed By: #### C DP, BMPX #### [address] [address] Lock[employer] Col[employer] Setter: John Yancey MD Immature granulocytes (Bld) [#/Vol] 0 % Normal 0 [facility] Comment on above: Performed By: #### C DP, BMPX #### [address] [address] Lock[employer] Collar Setter: John Yancey MD Lymphocytes (Bld) [#/Vol] 2.38 10*3/uL Normal 1.10-3.70 [facility] Comment on above: Performed By: #### C DP, BMPX #### [address] [address] Lock[employer]ch Collar Setter: John Yancey MD Lymphocytes/100 WBC (Bld) 41 % Normal 24-43 [facility] Comment on above: Performed By: #### C DP, BMPX #### [address] [address] Lock[employer] Col[employer] Setter: John Yancey MD MCH (RBC) [Entitic mass] 31.0 pg Normal 25.2-33.5 [facility] Comment on above: Performed By: #### C DP, BMPX #### [place] [address] Lock[employer]ch Collar Setter: John Yancey MD MCHC (RBC) [Mass/Vol] 32.5 g/dL Normal 28.4-34.8 [facility] Comment on above: Performed By: #### C DP, BMPX #### [address] [address] Lock[employer]ch Collar Setter: John Yancey MD MCV (RBC) [Entitic vol] 95.4 fL Normal 82.6-102.9 M [facility] Comment on above: Performed By: #### C DP, BMPX #### [address] [address] Lock[employer]ch Collar Setter: John Yancey MD Monocytes (Bld) [#/Vol] 0.51 10*3/uL Normal 0.10-1.20 [facility] Comment on above: Performed By: #### C DP, BMPX #### [address] [address] Lock[employer] Collar Setter: John Yancey MD Monocytes/100 WBC (Bld) 9 % Normal 3-12 M [facility] Comment on above: Performed By: #### C DP, BMPX #### [address] [address] Lock[employer] Col[employer] Setter: John Yancey MD Neutrophil (Seg) 44 % Normal 36-65 [facility] Comment on above: Performed By: #### C DP, BMPX #### [address] [address] Lock[employer]ch Collar Setter: John Yancey MD NRBC Automated 0.0 per 100 WBC Normal 0.0 [facility] Comment on above: Performed By: #### C DP, BMPX #### [address] [address] Lock[employer] Collar Setter: John Yancey MD Platelet mean volume (Bld) [Entitic vol] 10.6 fL Normal 8.1-13.5 [facility] Comment on above: Performed By: #### C DP, BMPX #### [address] [address] Lock[employer] Collar Setter: John Yancey MD Platelets (Bld) [#/Vol] 154 10*3/uL Normal 138-453 [facility] Comment on above: Performed By: #### C DP, BMPX #### [address] [place] [address] Lock[employer] Collar Setter: John Yancey MD RBC (Bld) [#/Vol] 4.36 10*6/uL Normal 3.95-5.11 [facility] Comment on above: Performed By: #### C DP, BMPX #### [address] [address] Lock[employer] Collar Setter: John Yancey MD WBC (Bld) [#/Vol] 5.8 10*3/uL Normal 3.5-11.3 [facility] Comment on above: Performed By: #### C DP, BMPX #### [address] [address] Lock[employer]ch Collar Setter: John Yancey MD Auto Diff Performed NOT REPORTED Normal [facility] Comment on above: Performed By: #### C DP, BMPX #### [address] [address] Lock[employer] Collar Setter: John Yancey MD Platelets (Bld) [#/Vol] NOT REPORTED Normal [facility], [place] Comment on above: Performed By: #### C DP, BMPX #### [address] [address] Lock[employer] Collar Setter: John Yancey MD RBC morphology finding Nom (Bld) NOT REPORTED Normal [facility], [place] Comment on above: Performed By: #### C DP, BMPX #### [facility] [employer] [address] [place] [address] Lock[employer] Collar Setter: John Yancey MD WBC Morphology NOT REPORTED Normal [facility], [place] Comment on above: Performed By: #### C DP, BMPX #### [facility] [employer] [address] [place] [address] Lock[employer] Collar Setter: John Yancey MD COVID-19on 12-16-2019 SARS-CoV-2 Not Detected Not Detected [place], [place] Comment on above: The specimen is NEGATIVE for SARS-CoV-2, the novel coronavirus associated with COVID-19. A negative result does not rule out COVID-19. This test has been authorized by the FDA under an Emergency Use Authorization (EUA) for use by authorized laboratories. Fact sheet for Healthcare Providers: https://www.fda.gov/media/124615/download Fact sheet for Patients: https://www.fda.gov/media/189905/download METHODOLOGY: RT-PCR SARS-CoV-2, PCR [place] SARS-CoV-2, Rapid [place], [place] Source .NASOPHARYNGEAL SWAB [place], [place] [id number] 12-16-2019 SARS-CoV-2 Normal [facility] Comment on above: Performed By: #### C OVID #### [address] [address] Lockstitch Collar Setter: John Yancey MD SARS-CoV-2,Rapid [facility] Comment on above: Performed By: #### C OVID #### [address] [address] Lock[employer] Collar Setter: John Yancey MD SARS-CoV-2 Not Detected Normal [facility] Comment on above: Result Comment: The specimen is NEGATIVE for SARS-CoV-2, the novel coronavirus associated with COVID-19. A negative result does not rule out COVID-19. This test has been authorized by the FDA under an Emergency Use Authorization (EUA) for use by authorized laboratories. Fact sheet for Healthcare Providers: https://www.fda.gov/media/591271/download Fact sheet for Patients: https://www.fda.gov/media/280004/download METHODOLOGY: RT-PCR Performed By: #### C OVID #### [address] [id number] Lock[employer] Collar Setter: John Yancey MD XR ABDOMEN (KUB) (SINGLE [...] Vail Jr., DO 12/16/19 Final result Normal [facility] EXAMINATION: ONE SUPINE XRAY VIEW(S) OF [...] region. Osseous structures demonstrate no acute findings. [place] No acute intra-abdominal process. Oral contrast is seen throughout the colon. [place], [facility] Incoming Radiant Results From [facility] - 12/16/2019 7:26 AM EDT EXAMINATION: ONE [...] Oral contrast is seen throughout the colon. [place] CBC WITH AUTO DIFFERENTIALon 12-15-2019 Basophils (Bld) [#/Vol] 0.06 10*3/uL [place] Basophils/100 WBC (Bld) 1 % 0 - 2 % [place] Differential Type NOT REPORTED [place] Eosinophils (Bld) [#/Vol] 0.24 10*3/uL [place] Eosinophils/100 WBC (Bld) 4 % 1 - 4 % [place] Erythrocyte distribution width (RBC) [Ratio] 12.5 % 11.8 - 14.4 % [place] Hematocrit (Bld) [Volume fraction] 45.7 % 36.3 - 47.1 % [place] Hemoglobin (Bld) [Mass/Vol] 14.5 g/dL 11.9 - 15.1 g/dL [place] Immature granulocytes (Bld) [#/Vol] 0 % 0 [place] Immature granulocytes (Bld) [#/Vol] 10*3/uL [place] Lymphocytes (Bld) [#/Vol] 2.47 10*3/uL [place] Lymphocytes/100 WBC (Bld) 37 % 24 - 43 % [place] MCH (RBC) [Entitic mass] 30.4 pg 25.2 - 33.5 pg [place] MCHC (RBC) [Mass/Vol] 31.7 g/dL 28.4 - 34.8 g/dL [place] MCV (RBC) [Entitic vol] 95.8 fL 82.6 - 102.9 fL [place] Monocytes (Bld) [#/Vol] 0.52 10*3/uL [place] Monocytes/100 WBC (Bld) 8 % 3 - 12 % [place] Platelet mean volume (Bld) [Entitic vol] 10.8 fL 8.1 - 13.5 fL [place] Platelets (Bld) [#/Vol] NOT REPORTED [place] Platelets (Bld) [#/Vol] 176 10*3/uL [place] RBC (Bld) [#/Vol] 4.77 10*6/uL 3.95 - 5.1 1 m/uL [place] RBC morphology finding Nom (Bld) NOT REPORTED [place] Segmented neutrophils/100 WBC (Bld) 50 % 36 - 65 % [place] Segs Absolute 3.38 [place] WBC (Bld) [#/Vol] 0.0 10*3/uL 0.0 per 10 0 WBC [place] WBC (Bld) [#/Vol] 6.7 10*3/uL [place] WBC Morphology NOT REPORTED [place], [place] CBC with Diffon 12-15-2019 Abs. Basophil 0.06 k/uL Normal 0.00-0.20 [facility] Comment on above: Performed By: #### C DP, CP, LIP #### [place] [address] [employer] Collar Setter: John Yancey MD Abs.Imm.Granulocyte <0.03 Normal 0.00-0.30 [facility] Comment on above: Performed By: #### C DP, CP, LIP #### [facility] [employer] [address] [place] [address] Lock[employer] Collar Setter: John Yancey MD Abs.Neutrophil (Seg) 3.38 k/uL Normal 1.50-8.10 [facility] Comment on above: Performed By: #### C DP, CP, LIP #### [facility] [employer] [address] [place] [address] Lock[employer] Collar Setter: John Yancey MD Basophils/100 WBC (Bld) 1 % Normal 0-2 M [facility] Comment on above: Performed By: #### C DP, CP, LIP #### [address] [address] [employer] Setter: John Yancey MD Eosinophils (Bld) [#/Vol] 0.24 10*3/uL Normal 0.00-0.44 [facility] Comment on above: Performed By: #### C DP, CP, LIP #### [address] [address] [employer] Setter: John Yancey MD Eosinophils/100 WBC (Bld) 4 % Normal 1-4 [facility] Comment on above: Performed By: #### C DP, CP, LIP #### [address] [address] [employer] Col[employer] Setter: John Yancey MD Erythrocyte distribution width (RBC) [Ratio] 12.5 % Normal 11.8-14.4 [facility] Comment on above: Performed By: #### C DP, CP, LIP #### [address] [address] [employer] Setter: John Yancey MD Hematocrit (Bld) [Volume fraction] 45.7 % Normal 36.3-47.1 [facility] Comment on above: Performed By: #### C DP, CP, LIP #### [address] [address] [employer] Col[employer] Setter: John Yancey MD Hemoglobin (Bld) [Mass/Vol] 14.5 g/dL Normal 11.9-15.1 [facility] Comment on above: Performed By: #### C DP, CP, LIP #### [address] [address] [employer] Col[employer] Setter: John Yancey MD Immature granulocytes (Bld) [#/Vol] 0 % Normal 0 [facility] Comment on above: Performed By: #### C DP, CP, LIP #### [facility] [employer] [address] [place] [address] [employer] Col[employer] Setter: John Yancey MD Lymphocytes (Bld) [#/Vol] 2.47 10*3/uL Normal 1.10-3.70 [facility] Comment on above: Performed By: #### C DP, CP, LIP #### [place] [address] [employer] Setter: John Yancey MD Lymphocytes/100 WBC (Bld) 37 % Normal 24-43 [facility] Comment on above: Performed By: #### C DP, CP, LIP #### [place] [address] [employer] Col[employer] Setter: John Yancey MD MCH (RBC) [Entitic mass] 30.4 pg Normal 25.2-33.5 [facility] Comment on above: Performed By: #### C DP, CP, LIP #### [place] [address] [employer] Col[employer] Setter: John Yancey MD MCHC (RBC) [Mass/Vol] 31.7 g/dL Normal 28.4-34.8 [facility] Comment on above: Performed By: #### C DP, CP, LIP #### [place] [address] [employer] Col[employer] Setter: John Yancey MD MCV (RBC) [Entitic vol] 95.8 fL Normal 82.6-102.9 M [facility] Comment on above: Performed By: #### C DP, CP, LIP #### [place] [address] [employer] Setter: John Yancey MD Monocytes (Bld) [#/Vol] 0.52 10*3/uL Normal 0.10-1.20 [facility] Comment on above: Performed By: #### C DP, CP, LIP #### [place] [address] [employer] Setter: John Yancey MD Monocytes/100 WBC (Bld) 8 % Normal 3-12 M [facility] Comment on above: Performed By: #### C DP, CP, LIP #### [address] [address] [employer] Setter: John Yancey MD Neutrophil (Seg) 50 % Normal 36-65 [facility] Comment on above: Performed By: #### C DP, CP, LIP #### [address] [address] [employer] Setter: John Yancey MD NRBC Automated 0.0 per 100 WBC Normal 0.0 [facility] Comment on above: Performed By: #### C DP, CP, LIP #### [address] [address] [employer] Setter: John aYncey MD Platelet mean volume (Bld) [Entitic vol] 10.8 fL Normal 8.1-13.5 [facility] Comment on above: Performed By: #### C DP, CP, LIP #### [address] [address] [employer] Setter: John Yancey MD Platelets (Bld) [#/Vol] 176 10*3/uL Normal 138-453 [facility] Comment on above: Performed By: #### C DP, CP, LIP #### [address] [address] [employer] Setter: John Yancey MD RBC (Bld) [#/Vol] 4.77 10*6/uL Normal 3.95-5.11 [facility] Comment on above: Performed By: #### C DP, CP, LIP #### [address] [address] Lock[employer] Collar Setter: John Yancey MD WBC (Bld) [#/Vol] 6.7 10*3/uL Normal 3.5-11.3 [facility] Comment on above: Performed By: #### C DP, CP, LIP #### [facility] [address] [place] [address] Lock[employer] Collar Setter: John Yancey MD Auto Diff Performed NOT REPORTED Normal [facility] Comment on above: Performed By: #### C DP, CP, LIP #### [facility] [address] [place] [address] Lock[employer] Collar Setter: John Yancey MD Platelets (Bld) [#/Vol] NOT REPORTED Normal [facility] Comment on above: Performed By: #### C DP, CP, LIP #### [address] [address] Lock[employer] Col[employer] Setter: John Yancey MD RBC morphology finding Nom (Bld) NOT REPORTED Normal [facility] Comment on above: Performed By: #### C DP, CP, LIP #### [facility] [address] [place] [address] Lock[employer] Collar Setter: John Yancey MD WBC Morphology NOT REPORTED Normal [facility] Comment on above: Performed By: #### C DP, CP, LIP #### [address] [address] Lock[employer]ch Collar Setter: John Yancey MD CT ABDOMEN PELVIS W [...] Héctor Ramos MD 12/15/19 Final result Normal [facility] CT ABDOMEN PELVIS W IV CONTR [...] Bones/Soft Tissues: No acute osseous abnormality identified[place] Long segment small bowel jejunal intussusception near the anastomosis. Fecalization in this area is noted consistent with stasis and there is mild upstream small bowel distension. [place], [place], M[facility] Incoming Radiant Results From [employer] - 12/15/2019 6:56 PM EDT EXAMINATION: CT [...] there is mild upstream small bowel distension. [place], [place] Comp Metabolic Profon 2019 (cont.) Normal [facility] Comment on above: Result Comment: Aver age GFR for 30-39 years old: 107 mL/min/1.73sq m Chronic Kidney Disease: <60 mL/min/1.73sq m Kidney failure: <15 mL/min/1.73sq m eGFR calculated using average adult body mass. Additional eGFR calculator available at: http://www.[employer]/multiple_crcl_2012.htm Performed By: #### C JP ENGLISH, LIP #### [facility] [address] [place] [address] Lock[employer] Collar Setter: John Yancey MD Albumin [Mass/Vol] 4.0 g/dL Normal 3.5-5.2 [facility] Comment on above: Performed By: #### C JP ENGLISH, LIP #### [facility] [address] [place] [address] Lock[employer]ch Collar Setter: John Yancey MD Albumin/Globulin [Mass ratio] 1.6 {ratio} Normal 1.0-2.5 [facility] Comment on above: Performed By: #### C JP ENGLISH, LIP #### [email or web address] [address] [place] [address] [phone] Lock[employer] Collar Setter: John Yancey MD Alkaline Phos 66 U/L Normal 35-104 [facility] Comment on above: Performed By: #### C DP, CP, LIP #### [address] [address] Lock[employer] Collar Setter: John Yancey MD ALT [Catalytic activity/Vol] 23 U/L Normal 5-33 [facility] Comment on above: Performed By: #### C DP, CP, LIP #### [address] [address] Lock[employer] Collar Setter: John Yancey MD Anion gap [Moles/Vol] 8 mmol/L Low 9-17 [facility] Comment on above: Performed By: #### C DP, CP, LIP #### [facility] [employer] [address] [place] [address] Lock[employer] Col[employer] Setter: John Yancey MD AST [Catalytic activity/Vol] 23 U/L Normal <32 [facility] Comment on above: Performed By: #### C DP, CP, LIP #### [address] [address] Lock[employer] Collar Setter: John Yancey MD Bilirubin Ql (U) 0.19 mg/dL Low 0.3-1.2 [facility] Comment on above: Performed By: #### C DP, CP, LIP #### [address] [address] Lock[employer] Collar Setter: John Yancey MD Calcium [Mass/Vol] 9.1 mg/dL Normal 8.6-10.4 [facility] Comment on above: Performed By: #### C DP, CP, LIP #### [facility] [address] [place] [address] Lock[employer] Collar Setter: John Yancey MD Chloride [Moles/Vol] 107 mmol/L Normal 98-107 [facility] Comment on above: Performed By: #### C DP, CP, LIP #### [address] [address] Lock[employer] Collar Setter: John Yancey MD CO2 [Moles/Vol] 25 mmol/L Normal 20-31 [facility] Comment on above: Performed By: #### C DP, CP, LIP #### [address] [address] Lock[employer] Collar Setter: John Yancey MD Creatinine [Mass/Vol] 0.59 mg/dL Normal 0.50-0.90 [facility] Comment on above: Performed By: #### C DP, CP, LIP #### [address] [address] Lock[employer] Collar Setter: John Yancey MD GFR, Amer >60 Normal >60 [facility] Comment on above: Performed By: #### C DP, CP, LIP #### [address] [address] Lock[employer] Collar Setter: John Yancey MD GFR,non Amer >60 Normal >60 [facility] Comment on above: Performed By: #### C DP, CP, LIP #### [address] [address] Lock[employer] Col[employer] Setter: Jhon Yancey MD Glucose [Mass/Vol] 81 mg/dL Normal 70-99 [facility] Comment on above: Performed By: #### C DP, CP, LIP #### [address] [address] Lock[employer] Collar Setter: John Yancey MD Potassium [Moles/Vol] 4.6 mmol/L Normal 3.7-5.3 [facility] Comment on above: Performed By: #### C DP, CP, LIP #### [address] [address] Lock[employer] Collar Setter: John Yancey MD Protein [Mass/Vol] 6.5 g/dL Normal 6.4-8.3 [facility] Comment on above: Performed By: #### C DP, CP, LIP #### [facility] [address] [place] [address] Lock[employer] Collar Setter: John Yancey MD Sodium [Moles/Vol] 140 mmol/L Normal 135-144 [facility] Comment on above: Performed By: #### C DP, CP, LIP #### [facility] [employer] [address] [place] [address] Lock[employer] Collar Setter: John Yancey MD Urea nitrogen [Mass/Vol] 9 mg/dL Normal - [facility] Comment on above: Performed By: #### C DP, CP, LIP #### [facility] [address] [place] [address] Lock[employer] Collar Setter: John Yancey MD BUN/CRE Ratio NOT REPORTED Normal [facility] Comment on above: Performed By: #### C DP, CP, LIP #### [facility] [address] [place] [address] Lock[employer]ch Collar Setter: John Yancey MD Staging: NOT REPORTED Normal [facility] Comment on above: Performed By: #### C DP, CP, LIP #### [facility] [address] [place] [address] Lock[employer] Collar Setter: John Yancey MD Comprehensive Metabolic Pane [facility] 12-15-2019 Albumin [Mass/Vol] 4 g/dL 3.5 - 5.2 g/dL [place] Albumin/Globulin [Mass ratio] 1.6 {ratio} [place] ALP [Catalytic activity/Vol] 66 U/L 35 - 104 U/L [place] ALT [Catalytic activity/Vol] 23 U/L 5 - 33 U/L [place] Anion gap [Moles/Vol] 8 mmol/L Low 9 - 17 mmol/L [place] AST [Catalytic activity/Vol] 23 U/L <32 [place] Bilirubin Ql (U) 0.19 mg/dL Low 0.3 - 1.2 mg/dL [place] Bun/Cre Ratio NOT REPORTED [place], [place] Calcium [Mass/Vol] 9.1 mg/dL 8.6 - 10. 4 mg/dL [place] Chloride [Moles/Vol] 107 mmol/L 98 - 10 7 mmol/L [place] CO2 [Moles/Vol] 25 mmol/L 20 - 31 mmol/L [place] Creatinine [Mass/Vol] 0.59 mg/dL 0.5 - 0.9 mg/dL [place] GFR >60 >60 mL/min [place], [place] GFR Non- >60 >60 mL/min [place] GFR/1.73 sq M predicted among non-blacks MDRD (S/P/Bld) [Vol rate/Area] [place], [place] Comment on above: Average GFR for 30-3 9 years old: 107 mL/min/1.73sq m Chronic Kidney Disease: <60 mL/min/1.73sq m Kidney failure: <15 mL/min/1.73sq m eGFR calculated using average adult body mass. Additional eGFR calculator available at: http://www.[employer]/multiple_crcl_2012.htm GFR/1.73 sq M predicted among non-blacks MDRD (S/P/Bld) [Vol rate/Area] NOT REPORTED [place], [place] Glucose [Mass/Vol] 81 mg/dL 70 - 99 mg/dL [place] Interpretation and review of laboratory results Abnormal [place] Potassium [Moles/Vol] 4.6 mmol/L 3.7 - 5.3 mmol/L [place] Protein [Mass/Vol] 6.5 g/dL 6.4 - 8.3 g/dL [place] Sodium [Moles/Vol] 140 mmol/L 135 - 144 mmol/L [place] Urea nitrogen [Mass/Vol] 9 mg/dL 6 - 20 mg/dL [facility] [place] LIPASEon 12-15-2019 Lipase [Catalytic activity/Vol] 20 U/L 13 - 60 U/L [facility] [place] Lipaseon 12-15-2019 Lipase [Catalytic activity/Vol] 20 U/L Normal 13-60 [facility] Comment on above: Performed By: #### C DP, CP, LIP #### [facility] [address] [place], [place] [phone] Lock[employer] Collar Setter: John Yancey MD [id number] 12-15-2019 SARS-CoV-2 Source .NASOPHARYNGEAL SWAB Normal [facility] Comment on above: Performed By: #### C OVID #### [facility] [address] [place], [place] [id number] Lock[employer] Collar Setter: John Yancey MD Topamaxon 07-31-2019 TOPA 2.7 ug/mL Low 5.0-20.0 [facility] Comment on above: Result Comment: (NOT E) INTERPRETIVE INFORMATION: Topiramate Therapeutic range: 5.0-20.0 ug/mL Toxic: Not well established Pharmacokinetics varies widely, particularly with co-medications, age, and/or compromised renal function. Adverse effects may include somnolence, fatigue, and dizziness. Performed by [employer], [address] [place] [id number] [email or web address], Nando Parrish MD, Lab. Director Performed By: #### C DP, CP, LIP #### [facility] [address] [place] [address] [place] [address] Lockstitch Collar Setter: Kd Page MD CBC Auto DifferentialOrdered By: Tobias Hogan on 07-29-2019 [employer] Eos # 0.21 [facility] Work Phone: Absolute Immature Granulocyte <0.03 [facility] Work Phone: Absolute Lymph # 2.30 [facility] Work Phone: Absolute [place] # 0.62 [facility] Work Phone: Basophils (Bld) [#/Vol] 0.06 10*3/uL [employer] Phone: Basophils/100 WBC (Bld) 1 % 0 - 2 % M [employer] Phone: Differential Type NOT REPORTED [employer] Phone: Eosinophils/100 WBC (Bld) 3 % 1 - 4 % [employer] Phone: Erythrocyte distribution width (RBC) [Ratio] 12.8 % 11.8 - 14.4 % [employer] Phone: Hematocrit (Bld) [Volume fraction] 38.4 % 36.3 - 47.1 % [employer] Phone: Hemoglobin (Bld) [Mass/Vol] 12.3 g/dL 11.9 - 15.1 g/dL [employer] Phone: Immature granulocytes/100 WBC (Bld) 0 % 0 [employer] Phone: Lymphocytes/100 WBC (Bld) 29 % 24 - 43 % [employer] Phone: MCH (RBC) [Entitic mass] 30.4 pg 25.2 - 33.5 pg [employer] Phone: MCHC (RBC) [Mass/Vol] 32.0 g/dL 28.4 - 34.8 g/dL [employer] Phone: MCV (RBC) [Entitic vol] 94.8 fL 82.6 - 102.9 fL [employer] Phone: Monocytes/100 WBC (Bld) 8 % 3 - 12 % M [employer] Phone: NRBC Automated 0.0 0.0 per 100 WBC [employer] Phone: Platelet Estimate NOT REPORTED [employer] Phone: Platelet mean volume (Bld) [Entitic vol] 11.0 fL 8.1 - 13.5 fL [employer] Work Phone: Platelets (Bld) [#/Vol] 220 10*3/uL [facility] [employer] Work Phone: RBC (Bld) [#/Vol] 4.05 10*6/uL 3.95 - 5.1 1 m/uL [facility] [employer] Work Phone: RBC morphology finding Nom (Bld) NOT REPORTED [facility] [employer] Work Phone: Segmented neutrophils/100 WBC (Bld) 59 % 36 - 65 % [facility] Work Phone: Segs Absolute 4.79 [facility] Work Phone: WBC (Bld) [#/Vol] 8.0 10*3/uL [facility] [employer] Work Phone: WBC Morphology NOT REPORTED [facility] Work Phone: CBC with Diffon 07-29-2019 Abs. Basophil 0.06 k/uL Normal 0.00-0.20 [facility] Comment on above: Performed By: #### C DP, HCG, CMPX #### [address] [place] [address] Lock[employer] Collar Setter: Kd Page MD Abs.Imm.Granulocyte <0.03 Normal 0.00-0.30 [facility] Comment on above: Performed By: #### C DP, HCG, CMPX #### [address] [place] [address] [employer] Collar Setter: Kd Page MD Abs.Neutrophil (Seg) 4.79 k/uL Normal 1.50-8.10 [facility] Comment on above: Performed By: #### C DP, HCG, CMPX #### [facility] [address] [place] [address] [place] [address] Lock[employer] Collar Setter: Kd Page MD Basophils/100 WBC (Bld) 1 % Normal 0-2 M [facility] Comment on above: Performed By: #### C DP, HCG, CMPX #### [facility] [address] [place] [address] [employer] Collar Setter: Kd Page MD Eosinophils (Bld) [#/Vol] 0.21 10*3/uL Normal 0.00-0.44 [facility] Comment on above: Performed By: #### C DP, HCG, CMPX #### [facility] [address] [place] [address] Lock[employer] Collar Setter: Kd Page MD Eosinophils/100 WBC (Bld) 3 % Normal 1-4 [facility] Comment on above: Performed By: #### C DP, HCG, CMPX #### [address] [place] [address] [employer] Collar Setter: Kd Page MD Erythrocyte distribution width (RBC) [Ratio] 12.8 % Normal 11.8-14.4 [facility] Comment on above: Performed By: #### C DP, HCG, CMPX #### [address] [place] [address] Lockstitch Collar Setter: Kd Page MD Hematocrit (Bld) [Volume fraction] 38.4 % Normal 36.3-47.1 [facility] Comment on above: Performed By: #### C DP, HCG, CMPX #### [address] [place], [place] [address] Lockstitch Collar Setter: Kd Page MD Hemoglobin (Bld) [Mass/Vol] 12.3 g/dL Normal 11.9-15.1 [facility] Comment on above: Performed By: #### C DP, HCG, CMPX #### [facility] [address] [place] [address] [employer] Collar Setter: Kd Page MD Immature granulocytes (Bld) [#/Vol] 0 % Normal 0 [facility] Comment on above: Performed By: #### C DP, HCG, CMPX #### [facility] [address] [place], [place] [phone] [employer] Collar Setter: Kd Page MD Lymphocytes (Bld) [#/Vol] 2.30 10*3/uL Normal 1.10-3.70 [facility] Comment on above: Performed By: #### C DP, HCG, CMPX #### [facility] [address] [place], [facility]83 Lock[employer] Collar Setter: Kd Page MD Lymphocytes/100 WBC (Bld) 29 % Normal 24-43 [facility] Comment on above: Performed By: #### C DP, HCG, CMPX #### [facility] [address] [place] [facility]83 [employer] Collar Setter: Kd Page MD MCH (RBC) [Entitic mass] 30.4 pg Normal 25.2-33.5 [facility] Comment on above: Performed By: #### C DP, HCG, CMPX #### [address] [place], [facility]83 [employer] Col[employer] Setter: Kd Page MD MCHC (RBC) [Mass/Vol] 32.0 g/dL Normal 28.4-34.8 [facility] Comment on above: Performed By: #### C DP, HCG, CMPX #### [address] [place], [facility]83 [employer] Col[employer] Setter: Kd Page MD MCV (RBC) [Entitic vol] 94.8 fL Normal 82.6-102.9 M [facility] Comment on above: Performed By: #### C DP, HCG, CMPX #### [facility] [address] [place] [address] Lock[employer] Collar Setter: Kd Page MD Monocytes (Bld) [#/Vol] 0.62 10*3/uL Normal 0.10-1.20 [facility] Comment on above: Performed By: #### C DP, HCG, CMPX #### [facility] [address] [place], [facility]83 [employer] Col[employer] Setter: Kd Page MD Monocytes/100 WBC (Bld) 8 % Normal 3-12 M [facility] Comment on above: Performed By: #### C DP, HCG, CMPX #### [facility] [address] [place], [place] [address] [employer] Col[employer] Setter: Kd Page MD Neutrophil (Seg) 59 % Normal 36-65 [facility] Comment on above: Performed By: #### C DP, HCG, CMPX #### [facility] [address] [place] [address] [employer] Collar Setter: Kd Page MD NRBC Automated 0.0 per 100 WBC Normal 0.0 [facility] Comment on above: Performed By: #### C DP, HCG, CMPX #### [facility] [address] [place], [facility]83 [employer] Col[employer] Setter: Kd Page MD Platelet mean volume (Bld) [Entitic vol] 11.0 fL Normal 8.1-13.5 [facility] Comment on above: Performed By: #### C DP, HCG, CMPX #### [address] [place] [address] [employer] Collar Setter: Kd Page MD Platelets (Bld) [#/Vol] 220 10*3/uL Normal 138-453 [facility] Comment on above: Performed By: #### C DP, HCG, CMPX #### [facility] [address] [place], [facility]83 [employer] Col[employer] Setter: Kd Page MD RBC (Bld) [#/Vol] 4.05 10*6/uL Normal 3.95-5.11 [facility] Comment on above: Performed By: #### C DP, HCG, CMPX #### [facility] [address] [place] [facility]83 [employer] Col[employer] Setter: Kd Page MD WBC (Bld) [#/Vol] 8.0 10*3/uL Normal 3.5-11.3 [facility] Comment on above: Performed By: #### C DP, HCG, CMPX #### [facility] [address] [place] [address] [employer] Collar Setter: Kd Page MD Auto Diff Performed NOT REPORTED Normal [facility] Comment on above: Performed By: #### C DP, HCG, CMPX #### [facility] [address] [place] [address] [employer] Collar Setter: Kd Page MD Platelets (Bld) [#/Vol] NOT REPORTED Normal [facility] Comment on above: Performed By: #### C DP, HCG, CMPX #### [facility] [address] [place] [address] [employer] Collar Setter: Kd Page MD RBC morphology finding Nom (Bld) NOT REPORTED Normal [facility] Comment on above: Performed By: #### C DP, HCG, CMPX #### [facility] [address] [place], [facility]83 [employer] Collar Setter: Kd Page MD WBC Morphology NOT REPORTED Normal [facility] Comment on above: Performed By: #### C DP, HCG, CMPX #### [facility] [address] [place], [facility]83 [employer] Collar Setter: Kd Page MD Comp Metabolic Pr/rfx MGon 0 07-29-2019 (cont.) Normal [facility] Comment on above: Result Comment: Aver age GFR for 30-39 years old: 107 mL/min/1.73sq m Chronic Kidney Disease: <60 mL/min/1.73sq m Kidney failure: <15 mL/min/1.73sq m eGFR calculated using average adult body mass. Additional eGFR calculator available at: http://www.[employer].com/multiple_crcl_2012.htm Performed By: #### C DP, HCG, CMPX #### [facility] [address] [place], [place] [id number] [employer] Col[employer] Setter: Kd Page MD Albumin [Mass/Vol] 3.6 g/dL Normal 3.5-5.2 [facility] Comment on above: Performed By: #### C DP, HCG, CMPX #### [facility] [address] [place], [place] [phone] [employer] Col[employer] Setter: Kd Page MD Albumin/Globulin [Mass ratio] 1.1 {ratio} Normal 1.0-2.5 [facility] Comment on above: Performed By: #### C DP, HCG, CMPX #### [facility] [address] [place], [place] [id number] [employer] Col[employer] Setter: Kd Page MD Alkaline Phos 48 U/L Normal 35-104 [facility] Comment on above: Performed By: #### C DP, HCG, CMPX #### [facility] [address] [place], [place] [id number] [employer] Col[employer] Setter: Kd Page MD ALT [Catalytic activity/Vol] U/L Low 5-33 [facility] Comment on above: Performed By: #### C DP, HCG, CMPX #### [facility] [address] [place], [place] [phone] [employer] Col[employer] Setter: Kd Page MD Anion gap [Moles/Vol] 11 mmol/L Normal 9-17 [facility] Comment on above: Performed By: #### C DP, HCG, CMPX #### [facility] [address] [place], [place] [phone] [employer] Col[employer] Setter: Kd Page MD AST [Catalytic activity/Vol] 20 U/L Normal <32 [facility] Comment on above: Performed By: #### C DP, HCG, CMPX #### [facility] [address] [place] [phone] [employer] Col[employer] Setter: Kd Page MD Bilirubin Ql (U) 0.28 mg/dL Low 0.3-1.2 [facility] Comment on above: Performed By: #### C DP, HCG, CMPX #### [facility] [address] [place], [place] [phone] [employer] Col[employer] Setter: Kd Page MD BUN/CRE Ratio 10 Normal 9-20 [facility] Comment on above: Performed By: #### C DP, HCG, CMPX #### [facility] [address] [place], [place] [phone] [employer] Col[employer] Setter: Kd Page MD Calcium [Mass/Vol] 9.0 mg/dL Normal 8.6-10.4 [facility] Comment on above: Performed By: #### C DP, HCG, CMPX #### [facility] [address] [place], [place] 6[address]83 [employer] Col[employer] Setter: Kd Page MD Chloride [Moles/Vol] 103 mmol/L Normal 98-107 [facility] Comment on above: Performed By: #### C DP, HCG, CMPX #### [facility] [address] [place], [place] [phone] [employer] Col[employer] Setter: Kd Page MD CO2 [Moles/Vol] 24 mmol/L Normal 20-31 [facility] Comment on above: Performed By: #### C DP, HCG, CMPX #### [facility] [address] [place], [place] [address] [employer] Setter: Kd Page MD Creatinine [Mass/Vol] 0.59 mg/dL Normal 0.50-0.90 [facility] Comment on above: Performed By: #### C DP, HCG, CMPX #### [facility] [address] [place], [place] [phone] [employer] Col[employer] Setter: Kd Page MD GFR, Amer >60 Normal >60 [facility] Comment on above: Performed By: #### C DP, HCG, CMPX #### [facility] [address] [place], [place] [phone] [employer] Col[employer] Setter: Kd Page MD GFR,non Amer >60 Normal >60 [facility] Comment on above: Performed By: #### C DP, HCG, CMPX #### [facility] [address] [place], [place] 3502983 [employer] Col[employer] Setter: Kd Page MD Glucose [Mass/Vol] 85 mg/dL Normal 70-99 [facility] Comment on above: Performed By: #### C DP, HCG, CMPX #### [facility] [address] [place] [phone] [employer] Col[employer] Setter: Kd Page MD Potassium [Moles/Vol] 4.1 mmol/L Normal 3.7-5.3 [facility] Comment on above: Performed By: #### C DP, HCG, CMPX #### [facility] [address] [place], [place] [phone] [employer] Col[employer] Setter: Kd Page MD Protein [Mass/Vol] 6.8 g/dL Normal 6.4-8.3 [facility] Comment on above: Performed By: #### C DP, HCG, CMPX #### [facility] [address] [place], [place] [id number] [employer] Col[employer] Setter: Kd Page MD Sodium [Moles/Vol] 138 mmol/L Normal 135-144 [facility] Comment on above: Performed By: #### C DP, HCG, CMPX #### [facility] [address] [place] [address] [employer] Col[employer] Setter: Kd Pgae MD Staging: Normal [facility] Comment on above: Result Comment: Stag e 1: Some kidney damage normal GFR Stage 2: Mild kidney damage GFR 60-89 Stage 3: Moderate kidney damage GFR 30-59 Stage 4: Severe kidney damage GFR 15-29 Stage 5: Severe kidney damage GFR <15 ESRD - chronic treatment by dialysis or transplant Performed By: #### C DP, HCG, CMPX #### [facility] [address] [place] [address] [employer] Setter: Kd Page MD Urea nitrogen [Mass/Vol] 6 mg/dL Normal 6-20 [facility] Comment on above: Performed By: #### C DP, HCG, CMPX #### [facility] [address] [place] [address] [employer] Col[employer] Setter: Kd Page MD Comprehensive Metabolic Pane l w/ Reflex to MGOrdered By: Tobias Hogan on 07-29-2019 Albumin [Mass/Vol] 3.6 g/dL 3.5 - 5.2 g/dL [facility] Phone: Albumin/Globulin [Mass ratio] 1.1 {ratio} [facility] Phone: ALP [Catalytic activity/Vol] 48 U/L 35 - 104 U/L [facility] Phone: ALT [Catalytic activity/Vol] U/L Low 5 - 33 U/L [facility] Phone: Anion gap [Moles/Vol] 11 mmol/L 9 - 17 mmol/L [facility] Phone: AST [Catalytic activity/Vol] 20 U/L <32 [facility] Phone: Bilirubin [Mass/Vol] 0.28 mg/dL Low 0.3 - 1 .2 mg/dL [facility] Phone: Bun/Cre Ratio 10 [facility] Work Phone: Calcium [Mass/Vol] 9.0 mg/dL 8.6 - 10. 4 mg/dL [facility] Phone: Chloride [Moles/Vol] 103 mmol/L 98 - 10 7 mmol/L [facility] Phone: CO2 [Moles/Vol] 24 mmol/L 20 - 31 mmol/L [employer] Phone: Creatinine [Mass/Vol] 0.59 mg/dL 0.5 - 0.9 mg/dL [employer] Phone: GFR >60 >60 mL/min [employer] Phone: GFR Comment [employer] Phone: Comment on above: Average GFR for 30-3 9 years old: 107 mL/min/1.73sq m Chronic Kidney Disease: <60 mL/min/1.73sq m Kidney failure: <15 mL/min/1.73sq m eGFR calculated using average adult body mass. Additional eGFR calculator available at: http://www.[employer]/multiple_crcl_2012.htm GFR Non- >60 >60 mL/min [employer] Phone: GFR Staging [employer] Phone: Comment on above: Stage 1: Some kidney damage normal GFR Stage 2: Mild kidney damage GFR 60-89 Stage 3: Moderate kidney damage GFR 30-59 Stage 4: Severe kidney damage GFR 15-29 Stage 5: Severe kidney damage GFR <15 ESRD - chronic treatment by dialysis or transplant Glucose [Mass/Vol] 85 mg/dL 70 - 99 mg/dL [employer] Phone: Interpretation and review of laboratory results Abnormal [employer] Phone: Potassium [Moles/Vol] 4.1 mmol/L 3.7 - 5.3 mmol/L [employer] Phone: Protein [Mass/Vol] 6.8 g/dL 6.4 - 8.3 g/dL [employer] Phone: Sodium [Moles/Vol] 138 mmol/L 135 - 144 mmol/L [employer] Phone: Urea nitrogen [Mass/Vol] 6 mg/dL 6 - 20 mg/dL [employer] Phone: HCG Qualitative, SerumOrdere d By: Tobias Hogan on 07-29-2019 hCG Qual Negative NEGATIVE [facility] Phone: Comment on above: Specimens with hCG l evels near the threshold of the test (25 mIU/mL) may give a negative or indeterminate result. In such cases, another test should be performed with a new specimen in 48-72 hours. If early is suspected clinically in this setting, correlation with quantitative serum b-hCG level is suggested. [employer] has confirmed the use of plasma for this test. This has not been cleared or approved by the U.S. Food and Drug Administration. The FDA has determined that such clearance is not necessary. HCG Screen, Bloodon 07-29-19 20 HCG Qn Negative Normal NEG [facility] Comment on above: Result Comment: Spec imens with hCG levels near the threshold of the test (25 mIU/mL) may give a negative or indeterminate result. In such cases, another test should be performed with a new specimen in 48-72 hours. If early is suspected clinically in this setting, correlation with quantitative serum b-hCG level is suggested. [employer] has confirmed the use of plasma for this test. This has not been cleared or approved by the U.S. Food and Drug Administration. The FDA has determined that such clearance is not necessary. Performed By: #### C DP, HCG, CMPX #### [facility] [address] [place] [address] Lockstitch Collar Setter: Kd Page MD Keppraon 07-29-2019 KEPP 13 ug/mL Normal [facility] Comment on above: Result Comment: A [...] By: #### C DP, CP, LIP #### [facility] [address] [place] [address] Lockstitch Collar Setter: Kd Page MD XR CHEST (2 VW)on [...] Héctor Kimble MD 07/29/19 Final result Normal [facility] XR CHEST STANDARD (2 VW)Orde red By: Tobias Hogan on 07-29-2019 Lateral left costophrenic pleural thickening with surgical drains in the left upper abdomen. [employer] Phone: EXAMINATION: TWO XRAY VIEWS OF THE [...] abdomen. Cholecystectomy clips. No subdiaphragmatic free air. [employer] Phone: Abner, Mhpn Incoming Radiant Results From [employer] - 07/29/2019 3:11 PM EST EXAMINATION: TWO [...] surgical drains in the left upper abdomen. [employer] Work Phone: CBC Auto DifferentialOrdered By: Krishna Jefferson on 07-23-2019 Absolute Eos # 0.27 [employer] [facility] Work Phone: Absolute Immature Granulocyte <0.03 [employer] Work Phone: Absolute Lymph # 2.78 [employer] [facility] Work Phone: Absolute [place] # 0.56 [facility] Work Phone: Basophils (Bld) [#/Vol] 0.06 10*3/uL [employer] Phone: Basophils/100 WBC (Bld) 1 % 0 - 2 % M [employer] Phone: Differential Type NOT REPORTED [employer] Phone: Eosinophils/100 WBC (Bld) 3 % 1 - 4 % [employer] Phone: Erythrocyte distribution width (RBC) [Ratio] 13.1 % 11.8 - 14.4 % [employer] Phone: Hematocrit (Bld) [Volume fraction] 38.7 % 36.3 - 47.1 % [employer] Phone: Hemoglobin (Bld) [Mass/Vol] 12.4 g/dL 11.9 - 15.1 g/dL [employer] Phone: Immature granulocytes/100 WBC (Bld) 0 % 0 [employer] Phone: Lymphocytes/100 WBC (Bld) 33 % 24 - 43 % [employer] Work Phone: MCH (RBC) [Entitic mass] 30.9 pg 25.2 - 33.5 pg [employer] Work Phone: MCHC (RBC) [Mass/Vol] 32.0 g/dL 28.4 - 34.8 g/dL [facility] Work Phone: MCV (RBC) [Entitic vol] 96.5 fL 82.6 - 102.9 fL [facility] Work Phone: Monocytes/100 WBC (Bld) 7 % 3 - 12 % M [facility] [employer] Work Phone: NRBC Automated 0.0 0.0 per 100 WBC [facility] Work Phone: Platelet Estimate NOT REPORTED [facility] Work Phone: Platelet mean volume (Bld) [Entitic vol] 10.4 fL 8.1 - 13.5 fL [facility] [employer] Work Phone: Platelets (Bld) [#/Vol] 264 10*3/uL [facility] [employer] Work Phone: RBC (Bld) [#/Vol] 4.01 10*6/uL 3.95 - 5.1 1 m/uL [facility] [employer] Work Phone: RBC morphology finding Nom (Bld) NOT REPORTED [facility] [employer] Work Phone: Segmented neutrophils/100 WBC (Bld) 56 % 36 - 65 % [facility] [employer] Work Phone: Segs Absolute 4.66 [facility] Work Phone: WBC (Bld) [#/Vol] 8.3 10*3/uL [facility] [employer] Work Phone: WBC Morphology NOT REPORTED [employer] [facility] Work Phone: CBC with Diffon 07-23-2019 Abs. Basophil 0.06 k/uL Normal 0.00-0.20 [facility] Comment on above: Performed By: #### C DP, CP, LIP #### [facility] [address] [place], [place] [address] Lock[employer] Collar Setter: Kd Page MD Abs.Imm.Granulocyte <0.03 Normal 0.00-0.30 [facility] Comment on above: Performed By: #### C DP, CP, LIP #### [facility] [address] [place] [address] Lock[employer] Collar Setter: Kd Page MD Abs.Neutrophil (Seg) 4.66 k/uL Normal 1.50-8.10 [facility] Comment on above: Performed By: #### C DP, CP, LIP #### [address] [place] [address] Lock[employer] Collar Setter: Kd Page MD Basophils/100 WBC (Bld) 1 % Normal 0-2 [facility] Comment on above: Performed By: #### C DP, CP, LIP #### [address] [place] [address] Lock[employer] Collar Setter: Kd Page MD Eosinophils (Bld) [#/Vol] 0.27 10*3/uL Normal 0.00-0.44 [facility] Comment on above: Performed By: #### C DP, CP, LIP #### [address] [place] [address] Lock[employer] Collar Setter: Kd Page MD Eosinophils/100 WBC (Bld) 3 % Normal 1-4 [facility] Comment on above: Performed By: #### C DP, CP, LIP #### [address] [place] [address] [employer] Collar Setter: Kd Page MD Erythrocyte distribution width (RBC) [Ratio] 13.1 % Normal 11.8-14.4 [facility] Comment on above: Performed By: #### C DP, CP, LIP #### [address] [place] [address] Lock[employer]ch Collar Setter: Kd Page MD Hematocrit (Bld) [Volume fraction] 38.7 % Normal 36.3-47.1 [facility] Comment on above: Performed By: #### C DP, CP, LIP #### [facility] [address] [place] [address] [employer] Collar Setter: Kd Page MD Hemoglobin (Bld) [Mass/Vol] 12.4 g/dL Normal 11.9-15.1 [facility] Comment on above: Performed By: #### C DP, CP, LIP #### [facility] [address] [place] [address] Lock[employer] Collar Setter: Kd Page MD Immature granulocytes (Bld) [#/Vol] 0 % Normal 0 [facility] Comment on above: Performed By: #### C DP CP, LIP #### [facility] [address] [place], [facility] [employer] Collar Setter: Kd Page MD Lymphocytes (Bld) [#/Vol] 2.78 10*3/uL Normal 1.10-3.70 [facility] Comment on above: Performed By: #### C DP, CP, LIP #### [facility] [address] [place] [address] Lock[employer] Collar Setter: Kd Page MD Lymphocytes/100 WBC (Bld) 33 % Normal 24-43 [facility] Comment on above: Performed By: #### C DP, CP, LIP #### [facility] [address] [place] [address] Lock[employer] Collar Setter: Kd Page MD MCH (RBC) [Entitic mass] 30.9 pg Normal 25.2-33.5 [facility] Comment on above: Performed By: #### C DP, CP, LIP #### [facility] [address] [place] [address] Lock[employer]ch Collar Setter: Kd Page MD MCHC (RBC) [Mass/Vol] 32.0 g/dL Normal 28.4-34.8 [facility] Comment on above: Performed By: #### C DP CP, LIP #### [facility] [address] [place], [place] [address] Lock[employer] Collar Setter: Kd Page MD MCV (RBC) [Entitic vol] 96.5 fL Normal 82.6-102.9 [facility] Comment on above: Performed By: #### C DP CP, LIP #### [facility] [address] [place], [place] [address] Lock[employer] Collar Setter: Kd Page MD Monocytes (Bld) [#/Vol] 0.56 10*3/uL Normal 0.10-1.20 [facility] Comment on above: Performed By: #### C TAMEKA CP, LIP #### [address] [place], [place] [address] [employer] Collar Setter: Kd Page MD Monocytes/100 WBC (Bld) 7 % Normal 3-12 [facility] Comment on above: Performed By: #### C TAMEKA CP, LIP #### [address] [place], [facility] [employer] Collar Setter: Kd Page MD Neutrophil (Seg) 56 % Normal 36-65 [facility] Comment on above: Performed By: #### C TAMEKA CP, LIP #### [address] [place], [place] [address] [employer] Collar Setter: Kd Page MD NRBC Automated 0.0 per 100 WBC Normal 0.0 [facility] Comment on above: Performed By: #### C DP CP, LIP #### [address] [place] [address] [employer] Collar Setter: Kd Page MD Platelet mean volume (Bld) [Entitic vol] 10.4 fL Normal 8.1-13.5 [facility] Comment on above: Performed By: #### C DP, CP, LIP #### [facility] [address] [place] [address] [employer] Collar Setter: Kd Page MD Platelets (Bld) [#/Vol] 264 10*3/uL Normal 138-453 [facility] Comment on above: Performed By: #### C DP, CP, LIP #### [facility] [address] [place], [facility] [employer] Collar Setter: Kd Page MD RBC (Bld) [#/Vol] 4.01 10*6/uL Normal 3.95-5.11 [facility] Comment on above: Performed By: #### C DP, CP, LIP #### [facility] [address] [place], [facility] [employer] Collar Setter: Kd Page MD WBC (Bld) [#/Vol] 8.3 10*3/uL Normal 3.5-11.3 [facility] Comment on above: Performed By: #### C DP, CP, LIP #### [facility] [address] [place], [place] [address] Lock[employer] Collar Setter: Kd Page MD Auto Diff Performed NOT REPORTED Normal [facility] Comment on above: Performed By: #### C DP, CP, LIP #### [facility] [address] [place], [place] [address] Lock[employer] Collar Setter: Kd Page MD Platelets (Bld) [#/Vol] NOT REPORTED Normal [facility] Comment on above: Performed By: #### C DP, CP, LIP #### [facility] [address] [place], [facility] [employer] Collar Setter: Kd Page MD RBC morphology finding Nom (d) NOT REPORTED Normal [facility] Comment on above: Performed By: #### C DP, CP, LIP #### [facility] [address] [place], [facility] [employer] Collar Setter: Kd Page MD WBC Morphology NOT REPORTED Normal [facility] Comment on above: Performed By: #### C DP, CP, LIP #### [facility] [address] [place] [address] Lock[employer]ch Collar Setter: Kd Page MD CT ABDOMEN PELVIS W [...] Dusty Krueger MD 07/23/19 Final result Normal [facility] CT ABDOMEN PELVIS W IV CONTR ASTOrdered By: Krishna Jefferson on 07-23-2019 No bowel obstruction. No extravasation of oral contrast. Percutaneous drain within the left upper quadrant. Small perisplenic collection is suspected to be an abscess. Drain is seen adjacent to this but not directly within it. [employer] Phone: EXAMINATION: CT OF THE ABDOMEN AND [...] acute soft tissue abnormality. No osseous abnormality. [employer] Phone: Abner, pn Incoming Radiant Results From [employer] - 07/23/2019 6:14 PM EST EXAMINATION: CT [...] Phone: Comp Metabolic Profon 2018 (cont.) Normal [facility] Comment on above: Result Comment: Aver age GFR for 30-39 years old: 107 mL/min/1.73sq m Chronic Kidney Disease: <60 mL/min/1.73sq m Kidney failure: <15 mL/min/1.73sq m eGFR calculated using average adult body mass. Additional eGFR calculator available at: http://www.[employer]/multiple_crcl_2012.htm Performed By: #### C JP ENGLISH, LIP #### [address] [place] [address] Lock[employer] Collar Setter: Kd Page MD Albumin [Mass/Vol] 3.7 g/dL Normal 3.5-5.2 [facility] Comment on above: Performed By: #### C JP ENGLISH, LIP #### [address] [place] [address] [employer] Collar Setter: Kd Page MD Albumin/Globulin [Mass ratio] 1.0 {ratio} Normal 1.0-2.5 [facility] Comment on above: Performed By: #### C JP ENGLISH, LIP #### [address] [place], [place] [id number] [employer] Collar Setter: Kd Page MD Alkaline Phos 57 U/L Normal 35-104 [facility] Comment on above: Performed By: #### C DP, CP, LIP #### [facility] [address] [place], [place] [id number] [employer] Collar Setter: Kd Page MD ALT [Catalytic activity/Vol] 10 U/L Normal 5-33 [facility] Comment on above: Performed By: #### C DP, CP, LIP #### [facility] [address] [place], [place] [id number] [employer] Collar Setter: Kd Page MD Anion gap [Moles/Vol] 11 mmol/L Normal 9-17 [facility] Comment on above: Performed By: #### C DP, CP, LIP #### [facility] [address] [place], [place] [id number] [employer] Collar Setter: Kd Page MD AST [Catalytic activity/Vol] 18 U/L Normal <32 [facility] Comment on above: Performed By: #### C DP, CP, LIP #### [facility] [address] [place], [place] [id number] [employer] Collar Setter: Kd Page MD Bilirubin Ql (U) 0.20 mg/dL Low 0.3-1.2 [facility] Comment on above: Performed By: #### C DP, CP, LIP #### [facility] [address] [place], [place] [address] [employer] Collar Setter: Kd Page MD BUN/CRE Ratio 17 Normal 9-20 [facility] Comment on above: Performed By: #### C DP, CP, LIP #### [facility] [address] [place], [place] [address] [employer] Collar Setter: Kd Page MD Calcium [Mass/Vol] 9.0 mg/dL Normal 8.6-10.4 [facility] Comment on above: Performed By: #### C DP, CP, LIP #### [facility] [address] [place], [place] [address] [employer] Collar Setter: Kd Page MD Chloride [Moles/Vol] 104 mmol/L Normal 98-107 [facility] Comment on above: Performed By: #### C DP, CP, LIP #### [facility] [address] [place], [place] [address] Lock[employer] Collar Setter: Kd Page MD CO2 [Moles/Vol] 24 mmol/L Normal 20-31 [facility] Comment on above: Performed By: #### C DP, CP, LIP #### [facility] [address] [place], [place] [id number] Lock[employer] Collar Setter: Kd Page MD Creatinine [Mass/Vol] 0.48 mg/dL Low 0.50-0.90 [facility] Comment on above: Performed By: #### C DP, CP, LIP #### [facility] [address] [place], [place] [id number] Lock[employer] Collar Setter: Kd Page MD GFR, Amer >60 Normal >60 [facility] Comment on above: Performed By: #### C DP, CP, LIP #### [facility] [address] [place], [place] [address] Lock[employer] Collar Setter: Kd Page MD GFR,non Amer >60 Normal >60 [facility] Comment on above: Performed By: #### C DP, CP, LIP #### [facility] [address] [place], [place] [address] Lock[employer] Collar Setter: Kd Page MD Glucose [Mass/Vol] 93 mg/dL Normal 70-99 [facility] Comment on above: Performed By: #### C DP, CP, LIP #### [facility] [address] [place], [place] [address] [employer] Collar Setter: Kd Page MD Potassium [Moles/Vol] 3.6 mmol/L Low 3.7-5.3 [facility] Comment on above: Performed By: #### C DP, CP, LIP #### [facility] [address] [place] [address] Lock[employer] Collar Setter: Kd Page MD Protein [Mass/Vol] 7.4 g/dL Normal 6.4-8.3 [facility] Comment on above: Performed By: #### C DP, CP, LIP #### [facility] [address] [place] [address] Lock[employer] Collar Setter: Kd Page MD Sodium [Moles/Vol] 139 mmol/L Normal 135-144 [facility] Comment on above: Performed By: #### C DP, CP, LIP #### [facility] [address] [place] [address] Lockstitch Collar Setter: Kd Page MD Staging: Normal [facility] Comment on above: Result Comment: Stag e 1: Some kidney damage normal GFR Stage 2: Mild kidney damage GFR 60-89 Stage 3: Moderate kidney damage GFR 30-59 Stage 4: Severe kidney damage GFR 15-29 Stage 5: Severe kidney damage GFR <15 ESRD - chronic treatment by dialysis or transplant Performed By: #### C DP, CP, LIP #### [address] [place] [address] Lock[employer]ch Collar Setter: Kd Page MD Urea nitrogen [Mass/Vol] 8 mg/dL Normal 6-20 [facility] Comment on above: Performed By: #### C DP, CP, LIP #### [facility] [address] [place] [address] Lock[employer]ch Collar Setter: Kd Page MD [facility] Metabolic [facility] lOrdered By: Krishna Jefferson on 07-23-2019 Albumin [Mass/Vol] 3.7 g/dL 3.5 - 5.2 g/dL [facility] Work Phone: Albumin/Globulin [Mass ratio] 1.0 {ratio} [employer] Phone: ALP [Catalytic activity/Vol] 57 U/L 35 - 104 U/L [employer] Phone: ALT [Catalytic activity/Vol] 10 U/L 5 - 33 U/L [employer] Phone: Anion gap [Moles/Vol] 11 mmol/L 9 - 17 mmol/L [employer] Phone: AST [Catalytic activity/Vol] 18 U/L <32 [employer] Phone: Bilirubin [Mass/Vol] 0.20 mg/dL Low 0.3 - 1 .2 mg/dL [employer] Phone: Bun/Cre Ratio 17 [employer] Work Phone: Calcium [Mass/Vol] 9.0 mg/dL 8.6 - 10. 4 mg/dL [employer] Phone: Chloride [Moles/Vol] 104 mmol/L 98 - 10 7 mmol/L [employer] Phone: CO2 [Moles/Vol] 24 mmol/L 20 - 31 mmol/L [employer] Phone: Creatinine [Mass/Vol] 0.48 mg/dL Low 0.5 - 0.9 mg/dL [employer] Phone: GFR >60 >60 mL/min [employer] Phone: GFR Comment [employer] Phone: Comment on above: Average GFR for 30-3 9 years old: 107 mL/min/1.73sq m Chronic Kidney Disease: <60 mL/min/1.73sq m Kidney failure: <15 mL/min/1.73sq m eGFR calculated using average adult body mass. Additional eGFR calculator available at: http://www.[employer]/multiple_crcl_2011.htm GFR Non- >60 >60 mL/min [employer] Phone: GFR Staging [employer] Phone: Comment on above: Stage 1: Some kidney damage normal GFR Stage 2: Mild kidney damage GFR 60-89 Stage 3: Moderate kidney damage GFR 30-59 Stage 4: Severe kidney damage GFR 15-29 Stage 5: Severe kidney damage GFR <15 ESRD - chronic treatment by dialysis or transplant Glucose [Mass/Vol] 93 mg/dL 70 - 99 mg/dL [employer] Phone: Potassium [Moles/Vol] 3.6 mmol/L Low 3.7 - 5.3 mmol/L [employer] Phone: Protein [Mass/Vol] 7.4 g/dL 6.4 - 8.3 g/dL [employer] Phone: Sodium [Moles/Vol] 139 mmol/L 135 - 144 mmol/L [employer] Phone: Urea nitrogen [Mass/Vol] 8 mg/dL 6 - 20 mg/dL [employer] Phone: Lipaseon 07-23-2019 Lipase [Catalytic activity/Vol] 70 U/L High 13-60 [facility] Comment on above: Performed By: #### C DP, CP, LIP #### [facility] [address] [place] [address] Lock[employer] Collar Setter: Kd Page MD LipaseOrdered By: Krishna tatum on 07-23-2019 Lipase [Catalytic activity/Vol] 70 U/L High 13 - 60 U/L [facility] Phone: Microscopic UrinalysisOrdere d By: Krishna Jefferson on 07-23-2019 - [employer] Phone: Amorphous, UA NOT REPORTED None [employer] Work Phone: Bacteria, UA 1+ Abnormal None [employer] Phone: Casts UA NOT REPORTED /LPF [employer] Phone: Crystals UA 2 TO 5 CALCIUM OXALATE Abnormal None /HPF [employer] Work Phone: Epithelial Cells UA 2 TO 5 [employer] Work Phone: Interpretation and review of laboratory results Abnormal [employer] Work Phone: Mucus, UA 3+ Abnormal None [employer] Work Phone: Other Observations UA NOT REPORTED NOT REQ. [facility] Work Phone: RBC, UA 0 TO 2 [employer] Work Phone: Renal Epithelial, Urine NOT REPORTED 0 /HPF [employer] Work Phone: Trichomonas, UA NOT REPORTED None [employer] Work Phone: WBC, UA 0 TO 2 [employer] Work Phone: Yeast, UA NOT REPORTED None [employer] Work Phone: No Panel InformationOrdered By: Krishna Jefferson on 07-23-2019 Interpretation and review of laboratory results Abnormal [employer] Phone: UA w/Reflex Cultureon 2018 Acetoacetic Acid,Ur TRACE Abnormal NEG [facility] Comment on above: Performed By: #### U AX, UMICAO #### [facility] [address] [place] [address] Lock[employer]ch Collar Setter: Kd Page MD Bilirubin, SemiQt,Ur Negative Normal NEG [facility] Comment on above: Performed By: #### U AX, UMICAO #### [facility] [address] [place] [address] Lock[employer]ch Collar Setter: Kd Page MD Color (U) YELLOW Normal YEL [facility] Comment on above: Performed By: #### U AX, UMICAO #### [facility] [address] [place] [address] [employer] Collar Setter: Kd Page MD Glucose Ql (U) Negative Normal NEG [facility] in Hospital Comment on above: Performed By: #### U AX, UMICAO #### [facility] [address] [place], [place] [id number] Lock[employer] Collar Setter: Kd Page MD Hemoglobin, Ur Negative Normal NEG [facility] in Hospital Comment on above: Performed By: #### U AX, UMICAO #### [facility] [address] [place], [place] [id number] Lock[employer] Collar Setter: Kd Page MD Leukocyte esterase Test strip Ql (U) Negative Normal NEG [facility] Comment on above: Performed By: #### U AX, UMICAO #### [address] [place] [address] Lock[employer]ch Collar Setter: Kd Page MD Nitrite,Ur Negative Normal [facility] Comment on above: Performed By: #### U AX, UMICAO #### [facility] [address] [place] [address] Dr. [place], [place] [id number] Lockstitch Collar Setter: Kd Page MD pH (U) 6.0 [pH] Normal 5.0-9.0 [facility] Comment on above: Performed By: #### U AX, UMICAO #### [address] [place], [place] [id number] Lockstitch Collar Setter: Kd Page MD Protein Ql (U) Negative Normal NEG [facility] in Hospital Comment on above: Performed By: #### U AX, UMICAO #### [facility] [address] [place], [place] [id number] Lockstitch Collar Setter: Kd Page MD Specific gravity (U) [Rel density] >1.030 High 1.010-1.020 [facility] Comment on above: Performed By: #### U AX, UMICAO #### [facility] [address] [place] [address] Dr. [place], [place] [id number] Lockstitch Collar Setter: Kd Page MD Turbidity CLEAR Normal CLEAR [facility] Comment on above: Performed By: #### U AX, CHAYITOICAO #### [facility] [address] [place], [place] [id number] Lockstitch Collar Setter: Kd Page MD Urobilinogen,Ur Normal Normal NORM [facility] Comment on above: Performed By: #### U AX, CHAYITOICAO #### [facility] [address] [place], [place] [id number] Lockstitch Collar Setter: Kd Page MD Comment NOT REPORTED Normal [facility] Comment on above: Performed By: #### U AX, CHAYITOICAO #### [facility] [address] [place], [place] [id number] Lockstitch Collar Setter: Kd Page MD Urinalysis Reflex to Culture Ordered By: Krishna Jefferson on 07-23-2019 Bilirubin Urine Negative NEGATIVE [facility] Work Phone: Color, UA YELLOW YELLOW [facility] Work Phone: Glucose, Ur Negative NEGATIVE [facility] Work Phone: Interpretation and review of laboratory results Abnormal [facility] Work Phone: Ketones Ql (U) TRACE Abnormal NEGATIVE [facility] Work Phone: Leukocyte esterase Test strip Ql (U) Negative NEGATIVE [facility] Work Phone: Nitrite, Urine Negative NEGATIVE [facility] Work Phone: pH, UA 6.0 [facility] Work Phone: Protein, UA Negative NEGATIVE [facility] Work Phone: Specific [place], UA >1.030 High [facility] Work Phone: Turbidity UA CLEAR CLEAR [facility] Work Phone: Urinalysis Comments NOT REPORTED [facility] [employer] Work Phone: Urine Hgb Negative NEGATIVE [facility] Work Phone: Urobilinogen, Urine Normal Normal [facility] Work Phone: Urinalysis,Microon 9 ----- Normal [facility] Comment on above: Performed By: #### U AX, UMICAO #### [facility] [address] [place], [facility] Lockstitch Collar Setter: Kd Page MD Bacteria LM.HPF (Urine sed) [#/Area] 1+ Abnormal [facility] Comment on above: Performed By: #### U AX, UMICAO #### [facility] [address] [place] [id number] Lockstitch Collar Setter: Kd Page MD Crystals LM Nom (Urine sed) 2 TO 5 Abnormal [facility] Comment on above: Result Comment: CALC IUM OXALATE Performed By: #### U AX, UMICAO #### [facility] [address] [place], [facility]83 Lockstitch Collar Setter: Kd Page MD Epithelial cells LM.HPF (Urine sed) [#/Area] 2 TO 5 Normal 0-25 [facility] Comment on above: Performed By: #### U AX, UMICAO #### [facility] [address] [place], [facility] Lockstitch Collar Setter: Kd Page MD Mucus Strands 3+ Abnormal [facility] Comment on above: Performed By: #### U AX, UMICAO #### [facility] [address] [place] [address] Lockstitch Collar Setter: Kd Page MD RBC (U) [#/Vol] 0 TO 2 Normal 0-2 [facility] Comment on above: Performed By: #### U AX, UMICAO #### [facility] [address] [place] [address] Lockstitch Collar Setter: Kd Page MD WBC (U) [#/Vol] 0 TO 2 Normal 0-5 [facility] Comment on above: Performed By: #### U AX, UMICAO #### [facility] [address] [place] [address] Lockstitch Collar Setter: Kd Page MD Amorphous sediment LM Ql (Urine sed) NOT REPORTED Normal NONE [facility] Comment on above: Performed By: #### U AX, UMICAO #### [facility] [address] [place], [place] [id number] Lockstitch Collar Setter: Kd Page MD Casts LM.LPF (Urine sed) [#/Area] NOT REPORTED Normal [facility] Comment on above: Performed By: #### U AX, UMICAO #### [facility] [address] [place] [address] Lockstitch Collar Setter: Kd Page MD Epithelial, Renal NOT REPORTED Normal 0 [facility] Comment on above: Performed By: #### U AX, UMICAO #### [facility] [address] [place], [place] [address] Lockstitch Collar Setter: Kd Page MD Other Observations NOT REPORTED [facility] Comment on above: Performed By: #### U AX, UMICAO #### [facility] [address] [place] [address] Lockstitch Collar Setter: Kd Page MD Trichomonas NOT REPORTED Normal NONE [facility] Comment on above: Performed By: #### U AX, UMICAO #### [facility] [address] [place] [address] Lockstitch Collar Setter: Kd Page MD Yeast LM Ql (Urine sed) NOT REPORTED Normal [facility] Comment on above: Performed By: #### U AX, UMICAO #### [facility] [address] [place], [place] [id number] Lockstitch Collar Setter: Kd Page MD Vital Signs Date Time Vital Sign Value Performing Clinician Facility 08-30-2024 16:33-0500 Body temperature 98.24 [degF] Jerrell Porter [facility] 08-30-2024 16:33-0500 Diastolic blood pressure 76 mm[Hg] Jerrell Porter [facility] 08-30-2024 16:33-0500 Heart rate 72 /min Jerrell Porter [facility] 08-30-2024 16:33-0500 Respiratory rate 16 /min Jerrell Porter [facility] 08-30-2024 16:33-0500 SaO2% (BldA) [Mass fraction] 98 % Jerrell Porter [facility] 08-30-2024 16:33-0500 Systolic blood pressure 109 mm[Hg] Jerrell Porter [facility] 08-26-2024 07:51-0500 Body temperature 98.24 [degF] Zafar Stephens [facility] 08-26-2024 07:51-0500 Diastolic blood pressure 82 mm[Hg] Zafar Stpehens [facility] 08-26-2024 07:51-0500 Heart rate 82 /min Zafar Stephens [facility] 08-26-2024 07:51-0500 Respiratory rate 17 /min Zafar Stephens [facility] 08-26-2024 07:51-0500 SaO2% (BldA) [Mass fraction] 100 % Zafar Stephens [facility] 08-26-2024 07:51-0500 Systolic blood pressure 124 mm[Hg] Zafar Stephens [facility] 08-14-2024 10:11-0500 Body height 165.1 cm Mela Lowe PA Work Phone: [facility] 08-14-2024 10:11-0500 Body mass index (BMI) [Ratio] 28.46 kg/m2 Mela Lowe PA Work Phone: [facility] 08-14-2024 10:11-0500 Body weight 77.56 kg Mela Lowe PA Work Phone: [facility] 08-14-2024 10:11-0500 Diastolic blood pressure 84 mm[Hg] Mela Lowe PA Work Phone: [facility] 08-14-2024 10:11-0500 Heart rate 88 /min Mela Lowe PA Work Phone: [facility] 08-14-2024 10:11-0500 Respiratory rate 16 /min Mela Lowe PA Work Phone: [facility] 08-14-2024 10:11-0500 SaO2% (BldA) [Mass fraction] 97 % Mela Lowe PA Work Phone: [facility] 08-14-2024 10:11-0500 Systolic blood pressure 120 mm[Hg] Mela Lowe PA Work Phone: [facility] 08-09-2024 15:47-0500 Body height 165.1 cm Nona [place] DO Work Phone: [facility] 08-09-2024 15:47-0500 Body mass index (BMI) [Ratio] 28.29 kg/m2 Nona [place] DO Work Phone: [facility] 08-09-2024 15:47-0500 Body temperature 97.39 [degF] Nona [place] DO Work Phone: [facility] 08-09-2024 15:47-0500 Body weight 77.11 kg Nona [place] DO Work Phone: [facility] 08-09-2024 15:47-0500 Diastolic blood pressure 78 mm[Hg] Nona [place] DO Work Phone: [facility] 08-09-2024 15:47-0500 Heart rate 95 /min Nona [place] DO Work Phone: [facility] 08-09-2024 15:47-0500 SaO2% (BldA) [Mass fraction] 98 % Nona [place] DO Work Phone: [facility] 08-09-2024 15:47-0500 Systolic blood pressure 122 mm[Hg] Nona [place] DO Work Phone: [facility] 08-03-2024 07:40-0500 Body temperature 97.88 [degF] Daryn Jessie [facility] 08-03-2024 07:40-0500 Diastolic blood pressure 77 mm[Hg] Daryn Dela Cruze [facility] 08-03-2024 07:40-0500 Heart rate 74 /min Daryn Roman [facility] 08-03-2024 07:40-0500 Respiratory rate 18 /min Daryn Roman [facility] 08-03-2024 07:40-0500 SaO2% (BldA) [Mass fraction] 99 % Daryn Roman [facility] 08-03-2024 07:40-0500 Systolic blood pressure 124 mm[Hg] Daryn Dela Cruze [facility] 06-30-2024 16:59-0500 Body temperature 97.88 [degF] Jerrell German [facility] 06-30-2024 16:59-0500 Diastolic blood pressure 72 mm[Hg] Jerrell German [facility] 06-30-2024 16:59-0500 Heart rate 88 /min Jerrell German [facility] 06-30-2024 16:59-0500 Respiratory rate 14 /min Jerrell Porter [facility] 06-30-2024 16:59-0500 SaO2% (BldA) [Mass fraction] 100 % Jerrell Porter [facility] 06-30-2024 16:59-0500 Systolic blood pressure 108 mm[Hg] Jerrell Porter [facility] 05-10-2024 15:37-0400 Body height 165.1 cm Nona [place] DO Work Phone: [facility] 05-10-2024 15:37-0400 Body mass index (BMI) [Ratio] 29.35 kg/m2 Nona [place] DO Work Phone: [facility] 05-10-2024 15:37-0400 Body temperature 97.81 [degF] Nona [place] DO Work Phone: [facility] 05-10-2024 15:37-0400 Body weight 80.02 kg Nona [place] DO Work Phone: [facility] 05-10-2024 15:37-0400 Diastolic blood pressure 70 mm[Hg] Nona [place] DO Work Phone: [facility] 05-10-2024 15:37-0400 Heart rate 90 /min Nona [place] DO Work Phone: [facility] 05-10-2024 15:37-0400 SaO2% (BldA) [Mass fraction] 98 % Nona [place] DO Work Phone: [facility] 05-10-2024 15:37-0400 Systolic blood pressure 112 mm[Hg] Nona [place] DO Work Phone: [facility] 04-02-2024 09:29-0400 Body height 165.1 cm Nona [place] DO Work Phone: [facility] 04-02-2024 09:29-0400 Body mass index (BMI) [Ratio] 29.72 kg/m2 Nona [place] DO Work Phone: [facility] 04-02-2024 09:29-0400 Body temperature 97.2 [degF] Nona [place] DO Work Phone: [facility] 04-02-2024 09:29-0400 Body weight 81.01 kg Nona [place] DO Work Phone: [facility] 04-02-2024 09:29-0400 Diastolic blood pressure 74 mm[Hg] Nona [place] DO Work Phone: [facility] 04-02-2024 09:29-0400 Heart rate 92 /min Nona [place] DO Work Phone: [facility] 04-02-2024 09:29-0400 SaO2% (BldA) [Mass fraction] 97 % Nona [place] DO Work Phone: [facility] 04-02-2024 09:29-0400 Systolic blood pressure 126 mm[Hg] Nona [place] DO Work Phone: [facility] 03-13-2024 13:27-0400 Body weight 80.74 kg Marisa Bowers INVESTMENT DIRECTOR Work Phone: [facility] 03-13-2024 13:27-0400 Diastolic blood pressure 60 mm[Hg] Marisa Bowers INVESTMENT DIRECTOR Work Phone: [facility] 03-13-2024 13:27-0400 Systolic blood pressure 104 mm[Hg] Marisa Bowers INVESTMENT DIRECTOR Work Phone: [facility] 05-26-2022 10:37-0400 Body height 165.1 cm Sanket Medina MD Work Phone: [facility] 05-26-2022 10:37-0400 Body mass index (BMI) [Ratio] 23.48 kg/m2 Sanket Medina MD Work Phone: [facility] 05-26-2022 10:37-0400 Body temperature 98.01 [degF] Sanket Medina MD Work Phone: [facility] 05-26-2022 10:37-0400 Body weight 64 kg Sanket Medina MD Work Phone: [facility] 05-26-2022 10:37-0400 Diastolic blood pressure 62 mm[Hg] Sanket Medina MD Work Phone: [facility] 05-26-2022 10:37-0400 Heart rate 104 /min Sanket Medina MD Work Phone: [facility] 05-26-2022 10:37-0400 Systolic blood pressure 120 mm[Hg] Sanket Medina MD Work Phone: [facility] 01-04-2020 10:15-0400 Pulse (Heart Rate) 60 /min [facility] [place] 01-04-2020 10:15-0400 Pulse Oximetry 97 % Jeannie [facility] [place] 01-04-2020 10:10-0400 BP Diastolic 61 mm[Hg] Jeannie [facility] 01-04-2020 10:10-0400 BP Systolic 101 mm[Hg] Jeannie [facility] 01-04-2020 10:10-0400 Respiratory Rate 14 /min Jeannie [facility], [place] 01-04-2020 09:45-0400 Body Temperature 98.2 [degF] Jeannie [facility] 01-04-2020 08:40-0400 BMI (Body Mass Index) 23.82 kg/m2 Jeannie [facility] 01-04-2020 08:40-0400 Body weight 66.95 kg Jeannie [facility] 01-04-2020 08:40-0400 Height 167.6 cm Jeannie [facility] 12-18-2019 08:54-0400 Body Temperature 98.1 [degF] [facility] [place] [place] 12-18-2019 08:54-0400 BP Diastolic 59 mm[Hg] [facility] [place] 12-18-2019 08:54-0400 BP Systolic 99 mm[Hg] Tobias Zav[place] [employer], [place] 12-18-2019 08:54-0400 Pulse (Heart Rate) 86 /min Tobias Zavala [facility], [place] 12-18-2019 08:54-0400 Pulse Oximetry 98 % Tobias Zavala [employer], [place] 12-18-2019 08:54-0400 Respiratory Rate 16 /min Tobias [facility] 12-15-2019 22:00-0400 BMI (Body Mass Index) 24.46 kg/m2 Tobias [facility] 12-15-2019 22:00-0400 Body weight 66.68 kg Tobias [place], [place] 12-15-2019 22:00-0400 Height 165.1 cm Tobias Zavala [employer] 07-29-2019 16:39-0500 Respiratory rate 16 /min Tobias [employer] Phone: [employer] Phone: 07-29-2019 16:25-0500 SaO2% (BldA) [Mass fraction] 100 % [employer] Phone: [employer] Phone: 07-29-2019 16:21-0500 Diastolic blood pressure 78 mm[Hg] [employer] Phone: [employer] Phone: 07-29-2019 16:21-0500 Systolic blood pressure 114 mm[Hg] Tobias [employer] Phone: [employer] Phone: 07-29-2019 14:55-0500 Heart rate 66 /min [employer] Phone: [employer] Phone: 07-29-2019 13:05-0500 Body mass index (BMI) [Ratio] 19.64 kg/m2 [employer] Phone: [employer] Phone: 07-29-2019 13:05-0500 Body temperature 98.29 [degF] Tobias Hogan DO Work Phone: [employer] Work Phone: 07-29-2019 13:05-0500 Body weight 53.52 kg Tobias Hogan DO Work Phone: [employer] Work Phone: 07-23-2019 21:40-0500 Body height 165.1 cm Venice Caballero MD Work Phone: [employer] Work Phone: 07-23-2019 21:40-0500 Body mass index (BMI) [Ratio] 19.14 kg/m2 Venice Caballero MD Work Phone: [employer] Work Phone: 07-23-2019 21:40-0500 Body temperature 98.6 [degF] Venice Caballero MD Work Phone: [employer] Work Phone: 07-23-2019 21:40-0500 Body weight 52.16 kg Venice Caballero MD Work Phone: [employer] Work Phone: 07-23-2019 21:40-0500 Diastolic blood pressure 63 mm[Hg] Venice Caballero MD Work Phone: [employer] Work Phone: 07-23-2019 21:40-0500 Heart rate 85 /min Venice Caballero MD Work Phone: [employer] Work Phone: 07-23-2019 21:40-0500 Respiratory rate 18 /min Venice Caballero MD Work Phone: [employer] Work Phone: 07-23-2019 21:40-0500 SaO2% (BldA) [Mass fraction] 99 % Venice Caballero MD Work Phone: [employer] Phone: 07-23-2019 21:40-0500 Systolic blood pressure 103 mm[Hg] Venice Caballero MD Work Phone: [employer] Phone: 07-23-2019 20:09-0500 Diastolic blood pressure 58 mm[Hg] [employer] Phone: 07-23-2019 20:09-0500 Heart rate 77 /min [employer] Phone: 07-23-2019 20:09-0500 SaO2% (BldA) [Mass fraction] 99 % [employer] Phone: 07-23-2019 20:09-0500 Systolic blood pressure 105 mm[Hg] [employer] Phone: 07-23-2019 19:06-0500 Body temperature 97.7 [degF] [employer] Phone: 07-23-2019 13:46-0500 Body weight 52.16 kg [employer] Phone: 07-23-2019 13:46-0500 Respiratory rate 18 /min [employer] Phone: Encounters Encounter Date Encounter Type Care Provider Facility Start: 11-21-2024 End: 11-21-2024 Refill Nona L [place] DO Work Phone: [facility] [phone] Comment on above: Attention deficit hy peractivity disorder (ADHD), unspecified ADHD type (CMS/HCC) Start: 10-19-2024 End: 10-22-2024 Refill Nona L [place] DO Work Phone: [facility] 518 Comment on above: Attention deficit hy peractivity disorder (ADHD), unspecified ADHD type (CMS/HCC) Start: 09-27-2024 End: 09-28-2024 Emergency department patient visit David Thornton [place] Start: 09-17-2024 End: 09-17-2024 Refill Nona L [place] DO Work Phone: [facility] 230 Comment on above: Attention deficit hy peractivity disorder (ADHD), unspecified ADHD type (CMS/HCC) 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) (CMS/HCC) Start: 08-30-2024 End: 08-30-2024 Emergency department patient visit Jerrell Josephine Porter [facility] Start: 08-30-2024 End: 08-30-2024 Refill Nona L [place] DO [facility] 230 Comment on above: Type 2 diabetes rachel itus with hypoglycemia without coma, without long-term current use of insulin (CMS/HCC) (Primary Dx) Start: 08-26-2024 End: 08-26-2024 Emergency department patient visit Zafar Stephens [facility] Start: 08-19-2024 End: 08-20-2024 Refill Nona L [place] DO Work Phone: [facility] 230 Comment on above: Attention deficit hy peractivity disorder (ADHD), unspecified ADHD type (CMS/HCC) Start: 08-14-2024 End: 08-14-2024 Bamboo flowsheet Mela Lowe PA Work Phone: [facility] Start: 08-14-2024 End: 08-14-2024 Bamboo flowsheet Mela Lowe PA Work Phone: [facility] Start: 08-14-2024 End: 08-14-2024 Office outpatient visit 25 minutes Mela Lowe PA Work Phone: [facility] Comment on above: Chronic migraine wit hout aura without status migrainosus, not intractable (CMS/HCC) (Primary Dx); Seizure (CMS/HCC) Start: 08-14-2024 End: 08-14-2024 ambulatory MELA LOWE Not Available Start: 08-09-2024 End: 08-09-2024 Office outpatient visit 25 minutes Nona L [place] DO Work Phone: [facility] 230 Comment on above: History of gastric b ypass (Primary Dx); Type 2 diabetes mellitus with hypoglycemia without coma, without long-term current use of insulin ([facility]/HCC); Dumping syndrome Start: 08-09-2024 End: 08-10-2024 ambulatory NONA L CUTLER Not Available Start: 08-09-2024 End: 08-09-2024 Bamboo flowsheet Nona L [place] DO Work Phone: [facility] 230 Start: 08-09-2024 End: 08-09-2024 Bamboo flowsheet Nona L [place] DO Work Phone: [facility] 230 Start: 08-06-2024 End: 08-06-2024 Clinisync Result Encounter Marisa Bowers INVESTMENT DIRECTOR Work Phone: [facility] Unsolicited Start: 08-06-2024 End: 08-06-2024 Clinisync Result Encounter Marisa Bowers INVESTMENT DIRECTOR Work Phone: [facility] Unsolicited Start: 08-03-2024 End: 08-03-2024 Emergency department patient visit Daryn Roman [facility] Start: 07-18-2024 End: 07-19-2024 Refill Nona L [place] DO Work Phone: [facility] 230 Comment on above: Attention deficit hy peractivity disorder (ADHD), unspecified ADHD type ([facility]/HCC) Start: 07-15-2024 End: 07-16-2024 Refill Nona L [place] DO Work Phone: [facility] 230 Comment on above: Attention deficit hy peractivity disorder (ADHD), unspecified ADHD type ([facility]/HCC) Start: 06-30-2024 End: 06-30-2024 Emergency department patient visit Jerrell Porter [facility] Start: 06-17-2024 End: 06-18-2024 Refill Nona L [place] DO Work Phone: [facility] 230 Comment on above: Attention deficit hy peractivity disorder (ADHD), unspecified ADHD type (CMS/HCC) Start: 06-10-2024 End: 06-11-2024 Refill Nona L [place] DO Work Phone: [facility] 230 Comment on above: Attention deficit hy peractivity disorder (ADHD), unspecified ADHD type (CMS/HCC) Start: 06-08-2024 End: 06-08-2024 Orders Only Nona L [place] DO Work Phone: [facility] 230 Comment on above: Type 2 diabetes rachel itus with hypoglycemia without coma, without long-term current use of insulin (CMS/HCC); Dumping syndrome Start: 06-07-2024 End: 06-07-2024 ambulatory Anson Patiño DO Facility:[facility] Start: 05-10-2024 End: 05-10-2024 Office outpatient visit 25 minutes Nona L [place] DO Work Phone: [facility] 230 Comment on above: Type 2 diabetes rachel itus with hypoglycemia without coma, without long-term current use of insulin (CMS/HCC) (Primary Dx); Reactive hypoglycemia; Dumping syndrome; Attention deficit hyperactivity disorder (ADHD), unspecified ADHD type (CMS/HCC); Mild episode of recurrent major depressive disorder (HCC) (CMS/HCC) Start: 05-10-2024 End: 05-10-2024 ambulatory NONA L CUTLER Not Available Start: 05-10-2024 End: 05-10-2024 Bamboo flowsheet Nona L [place] DO Work Phone: [facility] 230 Start: 05-10-2024 End: 05-10-2024 Bamboo flowsheet Nona L [place] DO Work Phone: [facility] 230 Start: 05-08-2024 End: 05-08-2024 Refill Nona L [place] DO Work Phone: [facility] 230 Comment on above: Attention deficit hy peractivity disorder (ADHD), unspecified ADHD type (CMS/HCC) (Primary Dx) Start: 04-05-2024 End: 04-05-2024 ambulatory Anson Patiño DO Facility:[facility] Start: 04-02-2024 End: 04-02-2024 Bamboo flowsheet Nona L [place] DO Work Phone: [facility] 230 Start: 04-02-2024 End: 04-02-2024 Bamboo flowsheet Nona L [place] DO Work Phone: [facility] 230 Start: 04-02-2024 End: 04-02-2024 Office outpatient visit 25 minutes Nona L [place] DO Work Phone: [facility] 230 Comment on above: Reactive [...] CUTLER Not Available Start: 03-29-2024 ambulatory Anson escalante DO Facility:[facility] Start: 03-14-2024 End: 03-14-2024 Telephone encounter [facility] Comment on above: Ubrelvy Denied Start: 03-13-2024 End: 03-13-2024 Office outpatient new 45 minutes Marisa Bowers INVESTMENT DIRECTOR Work Phone: [facility] Comment on above: Chronic migraine wit hout aura without status migrainosus, not intractable (CMS/HCC) (Primary Dx); Seizure (CMS/HCC) Start: 03-13-2024 End: 03-13-2024 ambulatory MARISA BOWERS Not Available Start: 01-03-2024 End: 01-03-2024 ambulatory Anson Patiño DO Facility:[facility] Start: 12-13-2023 ambulatory Anson escalante DO Facility:[facility] Start: 09-23-2023 End: 09-23-2023 ambulatory Anson Patiño DO Facility:[facility] Start: 07-21-2023 End: 07-21-2023 ambulatory Lorin Mirza CATERPILLAR MECHANIC-GARMENT FINISHER Facility:[facility] Start: 06-27-2023 End: 06-27-2023 ambulatory [facility] Start: 04-22-2023 End: 04-22-2023 ambulatory Jaquelin Schwab [facility] Work Phone: [facility] [place] Start: 04-22-2023 End: 04-22-2023 Patient encounter procedure Jaquelin Schwab [facility] Work Phone: [facility] [place] Start: 03-07-2023 End: 03-07-2023 ambulatory [facility] Start: 12-27-2022 End: 12-27-2022 ambulatory Katarina Niraj Mcnulty,PharmShelia [facility] Start: 12-27-2022 Patient encounter procedure Katarina Valenciaeney Pricila,PharmD [facility] Start: 12-23-2022 End: 12-23-2022 ambulatory [facility] Start: 05-26-2022 ambulatory LORIN MIRZA Facility:[facility] Start: 05-26-2022 End: 05-26-2022 Office outpatient new 60 minutes Sanket Medina MD Work Phone: [facility] [place] Comment on above: Focal epilepsy (Prim romeo Dx); Complicated migraine; Reversible cerebrovascular vasoconstriction syndrome Start: 05-11-2022 ambulatory LORIN CLEEMPYEMI Facility:[facility] Start: 03-29-2021 End: 03-29-2021 Emergency department patient visit Priyanka Angelo MD Facility:[facility] Start: 01-04-2020 End: 01-04-2020 Patient encounter procedure JEANNIE GARCIA [facility] Start: 01-04-2020 End: 01-04-2020 Subsequent hospital visit by physician Jeannie Garica Work Phone: [facility] Start: 01-01-2020 End: 01-06-2020 Patient encounter procedure JUAN A REDDING [facility] Start: 01-01-2020 End: 01-05-2020 Subsequent hospital visit by physician Laura More19 Pat Screening Schedule MTHZ PRE ADMIT Comment on above: Pre-op testing Start: 12-15-2019 End: 12-18-2019 Evaluation and management of inpatient VIELKA LARSON IV [facility] Start: 12-15-2019 End: 12-18-2019 Evaluation and management of inpatient Tobias Zavala Work Phone: [address] Onc/Med Surg Comment on above: Intussusception (HCC ) (Primary Dx); S/P laparoscopic surgery Start: 07-29-2019 End: 07-29-2019 Emergency department patient visit [facility] Start: 07-29-2019 End: 07-29-2019 Emergency department patient visit [place] [facility] Work Phone: [facility] ED Comment on above: Evaluation for remov al of FLYNN drains (Primary Dx); Intractable episodic headache, unspecified headache type; Nausea; Yeast vaginitis Start: 07-23-2019 End: 07-24-2019 Emergency department patient visit VENICE CABALLERO [facility] Start: 07-23-2019 End: 07-23-2019 Emergency department patient visit Venice Caballero MD Work Phone: [facility] ED Comment on above: Abscess, intra-abdom inal, postoperative (Primary Dx); Yeast infection Start: 07-23-2019 End: 07-23-2019 Emergency department patient [facility] Start: 07-23-2019 End: 07-23-2019 Emergency department patient visit [facility] ED Comment on above: Intra-abdominal absc ess (HCC) (Primary Dx) Procedures Date Procedure Procedure Detail Performing Clinician Start: 08-06-2024 ALL BASIC METABOLIC PANEL Marisa jasmine INVESTMENT DIRECTOR Work Phone: Start: 04-02-2024 Hemoglobin glycosylated a1c Nona Landry DO Work Phone: Start: 01-29-2021 End: 04-02-2024 H/O: hysterectomy History of hysterectomy Nona Bass Doris Work Phone: Start: 01-04-2020 DISCHARGE PATIENT VENICE [...] VENICE CABALLERO Start: 01-04-2020 VITAL SIGNS VENICE CABALLERO Start: 01-01-2020 COVID-19 AMBULATORY TOBIAS HOGAN Start: 01-01-2020 COVID-19 AMBULATORY Juan A Hammond [place] Work Phone: Start: 12-18-2019 INITIATE OXYGEN THERAPY PROTOCOL VENICE CABALLERO Start: 12-18-2019 DISCHARGE PATIENT VENICE CABALLERO Start: 12-18-2019 INTAKE AND OUTPUT VENICE CABALLERO Start: 12-17-2019 DIET GENERAL VENICE CABALLERO Start: 12-17-2019 MISCELLANEOUS NURSING CARE ORDER (SPECIFY) VENICE CABALLERO Start: 12-17-2019 TRANSFER PATIENT VENICE CABALLERO Start: 12-17-2019 End: 12-17-2019 LAPAROSCOPY EXPLORATORY Jeannie Mathis on Work Phone: Start: 12-17-2019 INITIATE OXYGEN THERAPY PROTOCOL VENICE CABALLERO Start: 12-17-2019 INTAKE AND OUTPUT VENICE CABALLERO Start: 12-16-2019 INITIATE OXYGEN THERAPY PROTOCOL VENICE CABALLERO Start: 12-16-2019 Radiologic exam abdomen 1 view [...] Blood count complete auto&auto difrntl wbc TOBIAS HGOAN Start: 07-29-2019 Gonadotropin chorionic qualitative TOBIAS HOGAN [...] Ct abdomen & pelvis w/contrast material Krishna Jefferson PA Work Phone: Start: 07-23-2019 Comprehensive metabolic panel Krishna Chanuda PA Work Phone: Start: 07-23-2019 Urinalysis microscopic only Krishna Jefferson PA Work Phone: Start: 07-23-2019 Urnls dip stick/tablet rgnt auto w/o microscopy Krishna Chanuda PA Work Phone: Start: 06-29-2016 End: 04-02-2024 H/O: section History of Nona Landry DO Work Phone: Plan of Treatment Date Care Activity Detail Author Start: 04-10-2025 Urine screening for protein Diabetes: Urine Protein Screening [facility] Start: 03-25-2025 Influenza vaccination Influenz a Vaccine (Season Ended) [facility] Start: 12-03-2024 End: 12-03-2024 Patient encounter procedure 12/03/2024 3:00 PM EDT Office Visit TONY LÓPEZ [address] [facility] [address] [place] [phone] Mela Santos PA [address] [place] [address] TONY LÓPEZ Start: 08-14-2024 End: 08-14-2024 Patient encounter procedure NOMAnny LÓPEZ [facility] Comment on above: Arrived Start: 08-09-2024 End: 08-09-2024 Patient encounter procedure [facility] [address] Comment on above: Arrived Start: 07-02-2024 Hemoglobin A1c measurement Diabetes: Hemoglobin A1C [facility] Start: 06-18-2024 End: 06-18-2024 Patient encounter procedure 06/18/2024 3:20 PM EST Office Visit NOMAnny LÓPEZ [facility] [address] [place] [phone] Marisa Bowers, JESSIE [address] [place] [address] JEFFREY LÓPEZ [facility] Start: 05-10-2024 End: 05-10-2024 Patient encounter procedure [facility] [address] Comment on above: Arrived Start: 05-08-2024 End: 05-08-2024 Patient encounter procedure 05/08/2024 9:20 AM EDT Office Visit [facility] [address] [place] [address] Nona Landry DO [address] [place] [address] [facility] [address] Start: 04-02-2024 End: 04-02-2025 25-hydroxyvitamin D3 [Mass/volume] in Serum or Plasma Vitamin D 25 hydroxy Total Lab Routine Vitamin D insufficiency Expected: 04/02/2024 (Approximate), Expires: 04/02/2025 [facility] Work Phone: Comment on above: Expected: 04/02/2024 (Approximate), Expires: 04/02/2025 Start: 04-02-2024 End: 04-02-2025 CBC W Auto Differential panel - Blood CBC and differential Lab Routine Type 2 diabetes mellitus with hypoglycemia without coma, without long-term current use of insulin ([facility]) Expected: 04/02/2024 (Approximate), Expires: 04/02/2025 [facility] Comment on above: Expected: 04/02/2024 (Approximate), Expires: 04/02/2025 Start: 04-02-2024 End: 04-02-2025 Cobalamin (Vitamin B12) [Mass/volume] in Serum or Plasma Vitamin B12 Lab Routine Dumping syndrome Encounter for vitamin deficiency screening History of gastric bypass Expected: 04/02/2024 (Approximate), Expires: 04/02/2025 [facility] Comment on above: Expected: 04/02/2024 (Approximate), Expires: 04/02/2025 Start: 04-02-2024 End: 04-02-2025 Comprehensive metabolic 2000 panel - Serum or Plasma Comprehensive metabolic panel Lab Routine Type 2 diabetes mellitus with hypoglycemia without coma, without long-term current use of insulin ([facility]) Expected: 04/02/2024 (Approximate), Expires: 04/02/2025 [facility] Comment on above: Expected: 04/02/2024 (Approximate), Expires: 04/02/2025 Start: 04-02-2024 End: 04-02-2025 Lipid 1996 panel - Serum or Plasma Lipid panel Lab Routine Type 2 diabetes mellitus with hypoglycemia without coma, without long-term current use of insulin ([facility]) Expected: 04/02/2024 (Approximate), Expires: 04/02/2025 [facility] Comment on above: Expected: 04/02/2024 (Approximate), Expires: 04/02/2025 Start: 04-02-2024 End: 04-02-2025 Thyrotropin [Units/volume] in Serum or Plasma Tsh+free t4 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[facility]) Expected: 04/02/2024 (Approximate), Expires: 04/02/2025 [facility] Comment on above: Expected: 04/02/2024 (Approximate), Expires: 04/02/2025 Start: 04-02-2024 End: 04-02-2024 Patient encounter procedure 04/02/2024 9:20 AM EDT Office Visit [facility] [address] [place] [id number] Nona Landry DO [address] [place] [address] Arrived [facility] 230 Comment on above: Arrived Start: 03-25-2024 Influenza vaccination INFLUENZA VACC INE (#1) [facility] Start: 03-13-2024 End: 03-13-2025 Basic metabolic 1998 panel - Serum or Plasma Basic metabolic panel Lab Routine Seizure (CMS/HCC) Expected: 03/13/2024 (Approximate), Expires: 03/13/2025 [facility] Work Phone: Comment on above: Expected: 03/13/2024 (Approximate), Expires: 03/13/2025 Start: 03-13-2024 End: 03-13-2025 Levetiracetam level Levetiracetam level Lab Routine Seizure (CMS/HCC) Expected: 03/13/2024 (Approximate), Expires: 03/13/2025 [facility] Comment on above: Expected: 03/13/2024 (Approximate), Expires: 03/13/2025 Start: 05-05-2023 End: 05-05-2023 Patient encounter procedure 05/05/2023 2:30 PM EDT Office Visit [facility] [address] [facility] [address] [place] [address] Tony Diane MD [address] [place] [address] [facility] Start: 03-25-2023 COVID-19 VACCINE ( season) COVID-19 VACCINE ( season) [facility] Start: 03-25-2023 Influenza vaccination INFLUENZ A VACCINE (Season Ended) [facility] Start: 12-08-2022 End: 12-08-2022 Patient encounter procedure 12/08/2022 Office Visit Neurology Sanket Medina MD [address] [place] [address] [facility] [place] Start: 08-10-2022 End: 08-10-2022 Patient encounter procedure 08/10/2022 Office Visit Neurology Tony Diane MD [address] [place] [address] [facility] [place] Start: 03-25-2022 Influenza vaccination INFLUENZA VACC INE (#1) [facility] Start: 03-25-2020 Influenza vaccination Flu vacc ine (Season Ended) [place], [place] Start: 03-25-2019 Influenza vaccination Flu vaccine (# 1) [facility] Phone: Start: 2018 Screening for malign ant neoplasm of cervix [facility] Start: 2009 Cervical cancer screen Cervical canc er screen [facility] [employer] Phone: Start: 2009 Screening for malign ant neoplasm of cervix [facility] Start: 10-25-2007 DTaP/Tdap/Td vaccine (1 - Tdap) DTaP/Tdap/Td vaccine (1 - Tdap) [place] Start: 10-25-2007 Hepatitis B vaccination HEP B VACCINE (1 of 3 - 19+ 3-dose series) [facility] Start: 10-25-2007 Third diphtheria, tetanus and acellular pertussis (DTaP) vaccination TDAP (ADULT) [facility] Start: 10-25-2007 Urine screening for protein Diabetes: Urine Protein Screening [facility] Start: 2006 Tetanus vaccination TETANUS [facility] Start: 10-25-2003 HIV screen HIV screen [facility] [employer] Phone: Start: 10-25-2003 HIV screening [facility] Start: 10-25-1999 DTaP/Tdap/Td vaccine (1 - Tdap) DTaP/Tdap/Td vaccine (1 - Tdap) [facility] [employer] Phone: Start: 1998 Glaucoma screening Diabetes: R etinopathy Screening [facility] Start: 1989 Varicella vaccine (1 of 2 - 2-dose childhood series) Varicella vaccine (1 of 2 - 2-dose childhood series) [employer] Phone: Start: 04-25-1989 COVID-19 VACCINE (#1) COVID-19 VACCI NE (#1) [facility] Start: 1988 Hepatitis C screening HEPATITI S C VIRUS SCREENING [facility] Start: 1988 Tetanus vaccination TETANUS [facility] EKG 12 Lead EKG 12 Lead ECG STAT 07/29/2019 2:25 PM EST [employer] Phone: Initiate Oxygen Ther apy Protocol [facility] Comment on above: Daily until disconti nued starting 12/15/2019 Daily until disconti nued starting 01/04/2020 End: 07-29-2019 Levetiracetam Level Levetiracetam Level Lab STAT One Time for 1 Occurrences starting 07/29/2019 until 07/29/2019 [employer] Phone: Comment on above: One Time for 1 Occur rences starting 07/29/2019 until 07/29/2019 Levetiracetam Level Levetiraceta m Level Lab STAT 07/29/2019 3:45 PM EST [employer] Phone: Phase I & II - meter ed glucose Phase I & II - metered glucose Point of Care Testing Routine As Needed until discontinued [facility]04[facility] [facility] on [facility]: As Needed until disc ontinued starting 01/04/2020 Surgical Pathology Surgical Path ology Lab Routine Release Upon Ordering for 1 Occurrences starting 01/04/[address] [facility] Comment on above: Release Upon Orderin g for 1 Occurrences starting 01/04/2020 End: 07-29-2019 Topiramate Level Topiramate Level Lab Routine One Time for 1 Occurrences starting 07/29/2019 until 07/29/2019 [employer] Phone: Comment on above: One Time for 1 Occur rences starting 07/29/2019 until 07/29/2019 Topiramate Level Topiramate Leve l Lab STAT 07/29/2019 3:45 PM [facility] Work Phone: Immunizations Immunization Date Immunization Notes Care Provider Gabrielle mukherjee 04-01-2023 influenza, injectabl e, quadrivalent, preservative free Marisa Bowers INVESTMENT DIRECTOR Work Phone: [facility] 04-01-2023 varicella virus vaccine Marisa Bowers INVESTMENT DIRECTOR Work Phone: [facility] 04-01-2023 influenza virus vaccine, unspecified formulation Jaquelin Vipin [facility] Work Phone: [facility] 04-29-2021 influenza virus vaccine, unspecified formulation Sanket Medina MD Work Phone: [facility] Payers Date Payer Category Payer Medicaid (Managed Care) [facility] MEDICAID [id number] 2022 Unknown [id number]. [id number] 2022 Medicaid [id number] 2021 Medicaid [id number] 2021 Private Health Insurance [address] [facility] [address] [facility] xxxxxxxxx 2014-Present [phone] [address] [place] [address] xxxxxxxxx [id number] 2014 Private Health Insurance [id number] 1988 Unknown [id number] 2.16.840.1.810970.3.579.2. 173 1988 Unknown [id number] 2.16.840.1.955957.3.579.2. 175 1988 Unknown [id number] 2.16.840.1.893945.3.579.2. 175 1988 Unknown [id number] 2.16.840.1.782705.3.579.2. 196 1988 Unknown [id number] 2.16.840.1.201344.3.579.2. 594 1988 Unknown [id number] 2.16.840.1.567816.3.579.2. 594 1988 Unknown [id number] 2.16840.1.497834.3.579.2. 196 1988 Unknown [id number] 2.16.840.1.042530.3.579.2. 196 1988 Unknown [id number] 2.16.840.1.354248.3.579.2. 196 1988 Unknown [id number] 2.16.840.1.322754.3.579.2. 196 1988 Unknown [id number] 2.16.840.1.171783.3.579.2. 196 1988 Unknown [id number] 2.16.840.1.487441.3.579.2. 196 1988 Unknown [id number] 2.16.840.1.272476.3.579.2. 196 1988 Unknown [id number] 2.16.840.1.996775.3.579.2. 727 1988 Unknown [id number] 2.16.840.1.275021.3.579.2. 727 1988 Unknown [id number] 2.16.840.1.907351.3.579.2. 1259 1988 Unknown [id number] 2.16.840.1.649623.3.579.2. 1259 1988 Unknown [id number] 2.16.840.1.900307.3.579.2. 1259 1988 Unknown [id number] 2.16.840.1.691551.3.579.2. 1259 1988 Unknown [id number] 2.16.840.1.266824.3.579.2. 1259 1988 Unknown [id number] 2.16.840.1.966352.3.579.2. 727 1988 Unknown [id number] 2.16.840.1.407117.3.579.2. 727 1988 Unknown [id number] 2.16.840.1.755359.3.579.2. 727 1988 Unknown [id number] 2.16.840.1.587089.3.579.2. 727 1988 Unknown [id number] 2.16.840.1.449739.3.579.2. 727 Social History Date Type Detail Facility Start: 12-18-2019 End: 03-09-2024 Tobacco smoking status NDIS Never smoker [employer] Phone: Start: 12-18-2019 End: 05-26-2022 Alcohol intake Ex-drinker (finding) [employer] Phone: Start: 07-23-2019 History SDOH Alcohol Frequency 1 [employer] Phone: Start: 1988 Sex Assigned At Not on file [employer] Phone: Exposure to SARS-CoV -2 (event) Unable to assess [employer] [place], [place] Start: 01-04-2020 End: 08-14-2024 Alcohol intake Lifetime non-drinker (finding) [facility] [place], [place] Start: 1990 Sex Assigned At Female [facility] Work Phone: Start: 12-29-2021 Tobacco smoking status NHIS Ex-smoker [facility] History of tobacco use Current smoker [facility] History of tobacco use Cigarette Smoker O ZHA[facility] Start: 12-29-2021 End: 03-09-2024 Tobacco use and exposure Smokeless tobacco non-user [facility] Start: 05-26-2022 End: 03-27-2024 History of Social function [facility] Start: 05-26-2022 End: 03-27-2024 Tobacco use panel [facility] Start: 09-12-2022 Gender identity Identifies as female gender (finding) [facility] How often do you nee d to have someone help you when you read instructions, pamphlets, or other written material from your doctor or pharmacy [SILS] Never [facility] Do you belong to any clubs or organizations such as protestant groups, unions, fraternal or athletic groups, or [...] smoking status No Smokin g Status Entered [facility] Goals Date Patient Goal Desired Activity /State Functional Status Date Assessment Result Facility 08-30-2024 Functional Status N/A [facility] 08-26-2024 Functional Status N/A [facility] 08-03-2024 Functional Status N/A [facility] 06-30-2024 Functional Status N/A [facility] Clinical Notes 07-23-2019 to 08-30-2024 Telephone Encounter - Nona Landry, DO - 08/30/2024 2:49 PM ESTTelephone Encounter - Nona Landry, DO - 08/30/2024 2:49 PM ESTNona Landry, DO - 08/09/2024 3:20 PM EST [...] Follow these instructions at home: Medicines Take meei-qtw-tacayvs and prescription medicines only as told by your health care provider. Ask your health care provider if the medicine prescribed to you: ?Requires you to avoid driving or using machinery. ?Can cause constipation. You may need to take these actions to prevent or treat constipation: ?Drink enough fluid to keep your urine pale yellow. ?Take dghd-olq-usnhlnu or prescription medicines. ?Eat foods that are [...] provider. Document Revised: 02/01/2023 Document Reviewed: 02/01/2023 Social Strategy 1 Patient Education 2023 [employer]. Follow Up Care 08/30/2024 16:07:20 With:NONA LANDRY Address: [address] [place] [address]- [phone] Business (1) When:09/02/2024 18:07:18 [facility] 08-30-2024 Note ED Patient Education Note Orthopedics [...] these instructions at home: Medicines ??? Take xcqp-ajq-lohzxem and prescription medicines only as told by your health care provider. ??? Ask your health care provider if the medicine prescribed to you: ? Requires you to avoid driving or using machinery. ? Can cause constipation. You may need to take these actions to prevent or treat constipation: ? Drink enough fluid to keep your urine pale yellow. ? Take cvck-ltu-uchbkbd or prescription medicines. ? Eat foods that [...] least 150 min (more content not included)... [facility] 08-30-2024 Telephone encounter Note Pt needs to switch to Alex, please let her know I sent equivalent dose to the pharmacy [facility] 08-30-2024 Miscellaneous Notes Pt needs to switch to Trulicity, please let her know I sent equivalent dose to the pharmacy documented in this encounter [facility] 08-26-2024 Hospital Discharg e instructions Patient Education [...] saline washes). ?Medicines that treat allergies (antihistamines). ?Pisg-fsv-rivzjkx pain relievers. If caused by bacteria, your [...] at home: Medicines Take, use, or apply zwea-bry-cefyhqw and prescription medicines only as told by [...] and water are not available, use hand senior compliance analyst. Do not smoke. Avoid being around [...] provider. Document Revised: 06/15/2022 Document Reviewed: 06/15/2022 Social Strategy 1 Patient Education 2023 [employer]. Follow Up Care 08/26/2024 07:49:59 With:NONA LANDRY Address: [address] [place] [address]- [phone] Business (1) When:08/29/2024 08:16:33 [facility] 08-26-2024 Note ED Patient Education Note Infectious [...] ? Medicines that treat allergies (antihistamines). ? Gvqa-aag-qcipsdr pain relievers. ??? If caused by bacteria, [...] home: Medicines ??? Take, use, or apply knic-zzy-tyttatj and prescription medicines only as told by [...] and water are not available, use hand senior compliance analyst. ??? Do not smoke. Avoid being around people who are smoking (secondhand smoke). ??? Keep all fo (more content not included)... [facility] 08-09-2024 History of Presen t illness Narrative Images from the original note were not included. [facility] SUBJECTIVE: HPI: Rachid Mojica is a 33 [...] 0.81 0.55 - 1.02 mg/dL [facility] EGFR-AF MALIAN >60 >=60 mL/min/1.73m 2 [facility] EGFR-NON AF MALIAN >60 >=60 mL/min/1.73m 2 BUN CREATININE RATIO [...] of insulin ([facility]) - Semaglutide,0.25 or 0.5MG/DOS, (Ozempic, 0.25 or [...] Depression with anxiety PTSD (post-traumatic stress disorder) (CMS/HCC) 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CMS/HCC) History of gastric bypass Hypoglycemia Celiac disease (CMS/HCC) Migraine without aura and without status migrainosus, not intractable (CMS/HCC) PCOS (polycystic ovarian syndrome) Reactive hypoglycemia Seizures (CMS/HCC) Vitamin D insufficiency Past Medical History: Diagnosis Date ADHD (attention deficit hyperactivity disorder) ([facility]) Allergic Anemia Anxiety Cervical radiculitis 08/11/2021 Added automatically from request for surgery [id number] Cervical shortening affecting 07/21/2016 Cervical spondylosis without myelopathy 01/28/2021 Cervicalgia 01/28/2021 Disease of thyroid gland ([facility]) 2007 Gastrojejunal ulcer 01/21/2020 History of hysterectomy 01/29/2021 Menorrhagia with irregular cycle 04/02/2024 Migraine ([facility]) 2006 SAH (subarachnoid hemorrhage) ([facility]) 12/08/2021 Seizures ([facility]) 2004 documented in this encounter [facility] 08-03-2024 Evaluation + Plan note Extrac britton from: Title:ED Note Author:Daryn Roman DO Date:07/25 Sinusitis (J32.9: Chronic si nusitis, [...] 75.1, kg, 08/03/24 7:43:00 EST, Weight Dosing [facility] 01-10-2025 Hospital Discharge instructions Follow Up Care 08/03/2024 07:35:11 With:NONA LANDRY Address: [facility] [address] [phone] Business (1) When:Within 3 Day(s) [facility] 12-07-2024 Hospital Discharge instructions Patient Education 06/30/2024 18:22:37 Nausea and Vomiting, Adult, Ofkq-uw-Domf Nausea and Vomiting, Adult Nausea is feeling [...] fruit juice). ?Low-calorie sports drinks. Eat bland, hxsz-ei-dnwjnc foods in small amounts as you are able, such as: ?Bananas. ?Applesauce. ?Rice. ?Low-fat (lean) meats. ?Presquille. ?Crackers. Avoid drinking fluids that have a lot of sugar or caffeine in them. This includes energy drinks, sports drinks, and soda. Avoid alcohol. Avoid spicy or fatty foods. General instructions Take xqff-ssb-zihhkqc and prescription medicines only as told by your doctor. Drink enough fluid to keep your pee (urine) pale yellow. Wash your hands often with soap and water for at least 20 seconds. If you cannot use soap and water, use hand senior compliance analyst. Make sure that everyone in your [...] your doctor about eating and drinking. Take hzgo-cpv-yyzprgx and prescription medicines only as told by your doctor. Contact your doctor if your symptoms get worse or you have new symptoms. Keep all follow-up visits. This information is not intended to replace advice given to you by your health care provider. Make sure you discuss any questions you have with your health care provider. Document Revised: 01/15/2022 Document Reviewed: 01/15/2022 Social Strategy 1 Patient Education 2023 ChoicePass. Follow Up Care 06/30/2024 16:57:21 With:NONA LANDRY Address: [address] [place] [address] [phone] Business (1) When:07/03/2024 18:22:18 Comments:Call to schedule a follow-up appointment with your family physician in the next 2 to 3 days. Use the Phenergan as needed for nausea. Return to the ED with any new or worsening symptoms. [facility] 12-07-2024 NoteED Patient Education Note Gastroenterology Nausea [...] ? Low-calorie sports drinks. ??? Eat bland, qorj-pi-qwhskq foods in small amounts as you are able, such as: ? Bananas. ? Applesauce. ? Rice. ? Low-fat (lean) meats. ? Presquille. ? Crackers. ??? Avoid drinking fluids that have a lot of sugar or caffeine in them. This includes energy drinks, sports drinks, and soda. ??? Avoid alcohol. ??? Avoid spicy or fatty foods. General instructions ??? Take qxyg-kan-iuypglu and prescription medicines only as told by your doctor. ??? Drink enough fluid to keep your pee (urine) pale yellow. ??? Wash your hands often with soap and water for at least 20 seconds. If you cannot use soap and water, use hand senior compliance analyst. ??? Make sure that everyone in [...] doctor about eating and drinking. ??? Take ouxr-pju-hknrbcj and prescription medicines only as told by your doctor. ??? Contact your doctor if your symptoms get worse or you have new symptoms. ??? Keep all follow-up visits. This information is not intended to replace advice given to you by your health care provider. Make sure you discuss any questions you have with your health care provider. Document Revised: 01/15/2022 Document Reviewed: 01/15/2022 Social Strategy 1 Patient Education ? 2023 ChoicePass.[facility] 05-10-2024 History of Present illness Narrative* [...] of insulin ([facility]) Reactive hypoglycemia Dumping syndrome Attention deficit hyperactivity disorder (ADHD), unspecified ADHD type ([facility]/HCC) Mild episode of recurrent major depressive disorder (HCC) ([facility]) - mirtazapine (Remeron) 30 MG tablet; Take 1 tablet (30 mg) by mouth at bedtime Sample of ozempic given today, she will notify me on progress avoiding high and low BP Nona Landry DO Patient Active Problem List Diagnosis Chronic fatigue Anxiety disorder Depression with anxiety PTSD (post-traumatic stress disorder) ([facility]) 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[facility]/HCC) History of gastric bypass Hypoglycemia Celiac disease ([facility]/HCC) Migraine without aura and without status migrainosus, not intractable ([facility]/HCC) PCOS (polycystic ovarian syndrome) Reactive hypoglycemia Seizures ([facility]) Vitamin D insufficiency Past Medical History: Diagnosis Date ADHD (attention deficit hyperactivity disorder) ([facility]) Cervical radiculitis 08/11/2021 Added automatically from request for surgery [id number] Cervical shortening affecting 07/21/2016 Cervical spondylosis without myelopathy 01/28/2021 Cervicalgia 01/28/2021 Gastrojejunal ulcer 01/21/2020 History of hysterectomy 01/29/2021 Menorrhagia with irregular cycle 04/02/2024 Migraine ([facility]/HCC) 2005 SAH (subarachnoid hemorrhage) ([facility]/HCC) 12/08/2021 Seizures ([facility]) 2004 documented in this encounterRipley County Memorial [id number] History of Present illness Narrative* Nona Landry, DO - 04/02/2024 9:20 AM EDT Images from the original note were not included. SUBJECTIVE: HPI: Rachid Mojica is a 33 y.o. female who presents with chief complaint of Establish Care Pt states she is here to establish care. Pt states she has blood sugar issues. Pt states that sincejerzy has a full bypass done her blood [...] of insulin ([facility]) - SITagliptin (Januvia) 50 MG tablet; Take [...] stress disorder) ([facility]) 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[facility]) History of gastric bypass Hypoglycemia Celiac disease ([facility]) Migraine without aura and without status migrainosus, not intractable ([facility]) PCOS (polycystic ovarian syndrome) Reactive hypoglycemia Seizures ([facility]) Vitamin D insufficiency Past Medical History: Diagnosis Date ADHD (attention deficit hyperactivity disorder) ([facility]) Cervical radiculitis 08/11/2021 Added automatically from request for surgery [id number] Cervical shortening affecting 07/21/2016 Cervical spondylosis without myelopathy 01/28/2021 Cervicalgia 01/28/2021 Gastrojejunal ulcer 01/21/2020 History of hysterectomy 01/29/2021 Menorrhagia with irregular cycle 04/02/2024 Migraine ([facility]) 2005 SAH (subarachnoid hemorrhage) ([facility]) 12/08/2021 Seizures ([facility]) 2004 documented in this encounterRipley County Memorial [id number] Telephone encounter Note* Telephone Encounter - Marisa Bowers NP - 03/14/2024 8:50 AM EDT We will try Nurtec. Sent to the pharmacy. Patient notified via phone message. [facility] County Memorial [id number] Miscellaneous Notes* Telephone Encounter - Marisa Bowers [...] of therapy of two preferred medications). [facility] Policy for Medical Necessity as posted on the [facility] website and [place] Unified Preferred Drug List criteria were reviewed and per [place] Administrative Code Rule 5160-1-01 (C) slb0670-40-16 (B), a medically necessary service must include: generally accepted standards of medicalpractice, be clinically appropriate in administration, treatment and outcome and be the lowest costalternative to effectively treat the condition. Please contact your provider to assist you with other treatment options that might be covered under your benefit package, or other services that might be available through the community. documented in this encounterNOSaint Luke's East HospitalMuowwvvqqw00-00-6796 Telephone encounter Note* Telephone Encounter - Bing [...] of therapy of two preferred medications). [facility] Policy for Medical Necessity as posted on the [facility] website and [facility] Preferred Drug List criteria were reviewed and per [place] Administrative Code Rule 5160-1-01 (C) nea8046-24-12 (B), a medically necessary service must include: generally accepted standards of medicalpractice, be clinically appropriate in administration, treatment and outcome and be the lowest costalternative to effectively treat the condition. Please contact your provider to assist you with other treatment options that might be covered under your benefit package, or other services that might be available through the community. [facility] [id number] History of Present illness Narrative* Marisa Bowers NP - 03/13/2024 1:20 PM EDT Images from the original note were not included. Parish Mojica is a 33 y.o. year old female No chief complaint on file. Past Medical History: Diagnosis Date ADHD (attention deficit hyperactivity disorder) ([facility]) Migraine ([facility]) 2006 Seizures ([facility]) 2004 Past Surgical History: Procedure Laterality Date [...] (Vitamin D3) 25 MCG (1000 UT) tablet [id number] Historical Provider, Active dexmethylphenidate XR (Focalin XR) 10 MG 24 hr capsule [id number] Take 20 mg by mouth Daily Historical ProviderMD Active gabapentin (Neurontin) 200 mg split tablet [id number] Take 200 mg by mouth Daily Historical Provider, Active levETIRAcetam (Keppra) 500 MG tablet [id number] Take 500 mg by mouth in the morning and 500 mg beforebedtime. Marisa Bowers NP Active Discontinued 03/13/24 1325 methylphenidate (Ritalin) 10 MG tablet [id number] Historical Provider, Active mirtazapine (Remeron) 30 MG tablet [id number] Historical Provider, Active HPI HPI Patient is a 33-year-old female with medical history of gastric bypass surgery in 2012 (lost 230 lbs), chronic back pain, migraines, ADHD and seizures. She is on Keppra 500 mg 1-1/2 tablets twice a day. In November of 2021 she presented to [facility] with a severe headache and vomiting. [...] more than the left. [facility] concern for a leaking [...] She used to follow with neurology in [place] and she followed up at [facility]. Her last appointment at [facility] was last year. Her Keppra was increased during the above hospitalization to 750mg BID. She denies any further events since then. She denies side effects of the medications. She states she had an ambulatory EEG in 2021 that was normal. This was done through [facility] in [place]. She was seen at the [facility] on 02/28/2024 with worsening neck and back [...] in upper and lower extremities. Coordination Right: Lhyrky-qm-xrmg normal. Rapid alternating movement normal.Left: Kwuevy-ca-cawk normal. Rapid alternating movement normal. Gait Casual gait is normal including stance, stride, and arm swing. Motor Examination RUE Strength deltoid, biceps, triceps, wrist extensors, wrist extensors, wrist flexor, credit verifier strength 5/5. LUE Strength deltoid, biceps, triceps, wrist extensors, wrist extensors, wrist flexor, credit verifier strength 5/5. RLE Strength illopsoas, quadriceps, tibialis [...] a day. In November she presented to [facility] with a severe headache and vomiting. [...] than the left. She was transferred to [facility] due to concern for a leaking [...] She used to follow with neurology in [place] and she followed up at [facility]. Her last appointment at [facility] was last year. Her Keppra was increased during the above hospitalization to 750mg BID. She denies any further events since then. She denies side effects of the medications. She states she had an ambulatory EEG in 2021 that was normal. This was done through [facility] in [place]. We will try to request the records [...] APRN and Dr Galvan documented in this encounterRipley County Memorial [id number] NoteReferral from Soniya Rivero MD to see information technology specialist for hypoglycemia. Phone number on file is not an active number and call could not be completed. Clinic phone number for dietitian appointment [phone].[facility]12-04-2023 Note Attestation signed by Daryn [...] en Y gastric bypass in 2014 at [place], [place]. She lost about 150 lbs and [...] Tuesday while working at the [employer] she got symptoms of hypoglycemia and [...] - She has tri (more content not included)...[facility] 04-22-2023 History of Present illness [...] No Mailing/Pickup Date: 04/28/2023 Shipping Address: [address] [facility] Contact Info: Specialty (Ty) [phone] Lars [phone] [facility] [phone] Greg [phone] Bedside Delivery ([facility]) [phone] documented in this encounterKnox Community Hospital08-14-2023 Note Attestation signed by Daryn Mckee [...] en Y gastric bypass in 2014 at [place], [place]. She lost about 150 lbs and [...] Tuesday while working at the [employer] she got symptoms of hypoglycemia and [...] 2 2. Reactive hypoglycemia: (more content not included)...[facility]06-15-2023 NotePatient's number has been unreachable. Will try calling again.[facility]06-05-2023 Note Attestation signed by Daryn [...] of Hypoglycemia. History since last visit on 06/01/23: Patient reports she underwent Daniela en Y gastric bypass in 2014 at [place], [place]. She lost about 150 lbs and [...] Tuesday while working at the [employer] she got symptoms of hypoglycemia and [...] OGTT done in last 6 months at [facility] where she states she had hyperglycemia [...] will consider pharmacological treatment. Will start with acarbose.[facility] 12-27-2022 History of Present illness Narrative* Katarina Healy RPh,PharmD - 12/27/2022 2:48 PM EDT [facility] OP RX OUTREACH ADVANCED: Call Information: Date and Time of Contact: 12/27/2022 2:50 PM Method of Contact: By Phone Contact Type: Prescriptions Contactor: [facility] OP Contactee: Patient Contact Outcome: Left message and Follow-up (Kelechiy refill / MMO) Contact Info: Specialty (Ty) [phone] Lars [phone] [facility] [phone] Greg [phone] Bedside Delivery ([facility]) [phone] * Katarina Healy RPh,PharmShelia - 12/27/2022 2:48 PM EDT [facility] OP RX OUTREACH ADVANCED: Call Information: Date and Time of Contact: 12/29/2022 12:55 PM Method of Contact: By Phone Contact Type: Prescriptions Contactor: [facility] OP Contactee: Patient Contact Outcome: Left message and Follow-up (Geetha msot) Contact Info: Specialty (Ty) [phone] [facility] [phone] [facility] [phone] Greg [phone] Bedside Delivery ([facility]) [phone] * Julio César Pineda - 12/27/2022 2:48 PM EDT [facility] OP RX OUTREACH ADVANCED: Call Information: Date and Time of Contact: 12/29/2022 1:32 PM Method of Contact: By Phone Contact Type: Prescriptions Contactor: Patient Contactee: [facility] OP Shipping/Pickup: Medicare B Refill?: No Medication Name: Ajovy 225MG /1.5ML Delivery Method: Air Delivery Location: Home Signature Required: No Mailing/Pickup Date: 12/30/2022 Shipping Address: [address] [place] [address] Contact Info: Specialty (Ty) [phone] [facility] [phone] [facility] [phone] Greg [phone] Bedside Delivery ([facility]) [phone] * Katarina Healy RPh,PharmD - 12/27/2022 2:48 PM EDT [facility] OP RX OUTREACH ADVANCED: Call Information: Date and Time of Contact: 12/29/2022 1:32 PM Contact Info: Specialty (Ty) [phone] [facility] [phone] [facility] [phone] Greg [phone] Bedside Delivery ([facility]) [phone] I performed phone call visit for Rachid [...] Healy RPh, PharmD Date/Time: 12/29/2022 1:32 PM * Jaquelin Schwab [...] Date/Time: 12/29/2022 1:32 PM documented in this encounterKnox Community Hospital06-05-2023 Miscellaneous Notes* Addendum Note - Jaquelin Schwab [facility] - 12/27/2022 2:48 PM EDTAddended by: JAQUELIN SCHWAB on: 12/29/2022 01:41 PM Modules accepted: [facility]* Addendum Note - Jaquelin Schwab [facility] - 12/27/2022 2:48 PM EDTAddended by: JAQUELIN SCHWAB on: 12/29/2022 01:41 PM Modules accepted: Orders [facility]-05-2023 Note* Addendum Note - Jaquelin Schwab [facility] - 12/27/2022 2:48 PM EDTAddended by: JAQUELIN SCHWAB on: 12/29/2022 01:41 PM Modules accepted: Orders [facility]06-05-2023 Note* Addendum Note - Jaquelin Schwab [facility] - 12/27/2022 2:48 PM EDTAddended by: JAQULEIN SCHWAB on: 12/29/2022 01:41 PM Modules accepted: Orders [facility]06-05-2023 Note* Addendum Note - Jaquelin Schwab [facility] - 12/27/2022 2:48 PM EDTAddended by: JAQUELIN SCHWAB on: 12/29/2022 01:41 PM Modules accepted: Orders [facility]06-01-2023 NoteREASON FOR VISIT: Rachid Mojica is [...] OGTT done in last 6 months at [facility] where she states she had hyperglycemia [...] the morning., Disp: , 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 right handed female with a history of chronic intractable migraines complicated with reversible vasoconstriction syndrome (RCVS), recent event of SAH sec to RCVS who presents to [facility] at [facility] for establishing the care taking management of [...] Denies any insomnia or excessive sleepiness. 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 Sanket Medina MD [facility] [place] Department of Neurology - Epilepsy Division [address] [place] [address] - 7th floor [place] [address] . Total time to complete the visit : 60 minutes (record review, face to face encounter and documentation) . documented in this encounterKnox Community Hospital11-02-2022 Instructions* Patient Instructions* Sanket Medina MD - 05/26/2022 11:00 AM EDT Topamax only half tab in morning and full tablet Headache clinic referral documented in this encounterKnox Community Hospital01-05-2020 Hospital Discharge instructions* Instructions* Tobias Hogan, DO - 07/29/2019 Return to the Emergency Department immediately if you develop a fever, vomiting, worsening pain, worsening drainage from the FLYNN drain, or you have any other concerns. Please follow up with your surgeon in 1-2 days. * Attachments The following attachments cannot be sent through Care Everywhere. * Vaginal Yeast Infection (Venezuelan) documented in this [facility]Card[facility] Phone: [phone] Hospital Discharge instructions* Instructions* Jose Watson, DO - 07/23/2019 If given narcotics (opiates) [...] other care or concern. documented in this encounterCardeas Pharma Phone: evaluation + Plan note No data available for this section [facility] Evaluation note* Diagnosis Intra-abdominal abscess (HCC)- Primary Peritoneal abscess documented in this encounter [employer] Phone: evaluation note* Diagnosis Abscess, intra-abdominal, postoperative- Primary Other postoperative infection Yeast infection Other and unspecified mycoses documented in this encounter [employer] Phone: [email or web address] note* Diagnosis Evaluation for removal of FLYNN drains- Primary Other specified aftercare following surgery Intractable episodic headache, unspecified headache type Nausea Nausea alone Yeast vaginitis Candidiasis of vulva and vagina documented in this encounter [employer] Phone: [email or web address] note* Diagnosis Focal epilepsy- Primary Localization-related (focal) (partial) epilepsy and epileptic syndromes with simple partial seizures, without mention of intractable epilepsy Complicated migraine Migraine with aura, without mention of intractable migraine without mention of status migrainosus Reversible cerebrovascular vasoconstriction syndrome Other ill-defined cerebrovascular disease documented in this encounter [facility]* Diagnosis Attention deficit hyperactivity disorder [...] note No data available for this section [facility] Reason for referral (narrative)* Consultation (Urgent) - New Request Specialty Diagnoses / Procedures Referred By Clint mora Referred To Contact Neurology Diagnoses Complicated migraine Reversible cerebrovascular vasoconstriction syndrome Sanket Medina MD [address] [place] [address] Referral ID Status Reason Start Date Expiration Date V isits Requested Visits Authorized [id number] New Request 05/26/2022 06/20/2023 1 1 [facility] Discharge Instructions * Instructions* Obdulio Harrison [...] questions, PLEASE call your doctor or the [facility] Weight Management center at documented in this encounter History of Present Illness * Sierra Santillan RN - 12/18/2019 3:25 PM EDT Patient given discharge instructions. All questions answered. Patient ambulated off unit for discharge. * Corina Juárez - 12/18/2019 12:19 PM EDT CLINICAL PHARMACY NOTE: MEDS TO [facility] Select Patient?: No Total # of Prescriptions Filled: 2 The following medications were delivered to the patient: roxicodone dok Total # of Interventions Completed: 0 Time Spent (min): 0 Additional Documentation: * Obdulio Harrison DO - 12/18/2019 7:13 AM EDT General Surgery: Daily Progress Note PATIENT NAME: Rachid WRIGHT'S DATE: 12/18/2019, 7:13 AM CC: Sore at [...] Garcia DO - 12/17/2019 11:06 AM EDT [facility] 4C ONC/MED SURG [address] [facility] [id number] Dept: [phone] Loc: [phone] Bariatrics: Asked to see patient today regarding [...] GJ ulcer approximately 2.5 months ago in [place]. Primary surgery done in [place]. BP (!) 95/46 Pulse 68 Temp 97.9 F (36.6 C) (Oral) Resp 18 Ht 5' 5 (1.651 m) Wt 147 lb (66.7 kg) SpO2 98% BMI 24.46 kg/m Abdom: Soft, non distended, fullness on the left, but some rebound from the right Labs: 12/16/2019 6:14 AM - Abner, Jenifferpn Incoming Lab Results From [facility] Component Value Ref Range & Units Status Collected Lab WBC 5.8 3.5 - 11.3 k/uL Final 12/16/2019 6:00 AM [facility] RBC 4.36 3.95 - 5.11 m/uL Final 12/16/2019 6:00 AM [facility] Hemoglobin 13.5 11.9 - 15.1 g/dL Final 12/16/2019 6:00 AM [facility] Hematocrit 41.6 36.3 - 47.1 % Final 12/16/2019 6:00 AM [facility] MCV 95.4 82.6 - 102.9 fL Final 12/16/2019 6:00 AM [facility] MCH 31.0 25.2 - 33.5 pg Final 12/16/2019 6:00 AM [facility] MCHC 32.5 28.4 - 34.8 g/dL Final 12/16/2019 6:00 AM [facility] RDW 12.2 11.8 - 14.4 % Final 12/16/2019 6:00 AM [facility] Platelets 154 138 - 453 k/uL Final 12/16/2019 6:00 AM [facility] MPV 10.6 8.1 - 13.5 fL Final 12/16/2019 6:00 AM [facility] NRBC Automated 0.0 0.0 per 100 WBC Final 12/16/2019 6:00 AM [facility] Differential Type NOT REPORTED Final 12/16/2019 6:00 AM [facility] WBC Morphology NOT REPORTED Final 12/16/2019 6:00 AM [email or web address] RBC Morphology NOT REPORTED Final 12/16/2019 6:00 AM [facility] Platelet Estimate NOT REPORTED Final 12/16/2019 6:00 AM [facility] Seg Neutrophils 44 36 [...] - Chris Levine Incoming Lab Results From [facility] Component Value Ref Range & Units Status Collected Lab Glucose 83 70 - 99 mg/dL Final 12/16/2019 6:00 AM [facility] BUN 9 6 - 20 mg/dL Final 12/16/2019 6:00 AM [facility] CREATININE 0.55 0.50 - 0.90 mg/dL Final 12/16/2019 6:00 AM [facility] Bun/Cre Ratio NOT REPORTED 9 - Final 12/16/2019 6:00 AM [facility] [...] PM Abner, Mh[facility] Incoming Radiant Results From [employer] Rigoberto Orellana DO CC'd Results Radiation Dose [...] Urrutia MD General Surgery PGY2 Pager Number: [phone] * Kiya Cordero RN - 12/16/2019 4:[address] Urrutia, ok to hep lock pt while she is on clear liquid diet * Neo Vielkaenzo Angela IV, DO - 12/16/2019 7:19 AM EDT [...] Documents on File Type Date Recorded Patient Outreach Manager Expl anation Advance Directives and Living Will Power of General Assignment Reporter Latest Code Status on File Code Status Date Activated Date Inactivated Comments Full Code 12/15/2019 9:45 PM Latest Code Status on File Code Status Date Activated Date Inactivated Comments Full Code 12/15/2019 9:45 PM 12/18/2019 5:31 PM Documents on File Type Date Recorded Patient Outreach Manager Expl anation Advance Directives and Living Will Power of General Assignment Reporter Latest Code Status on File Code Status [...] Referred By Clint t Referred To Contact Diagnoses Chronic migraine without aura without status migrainosus, not intractable (CMS/HCC) Marisa Bowers, JESSIE [address] [place] [address] Referral ID Status Reason Start Date Expiration Date V isits Requested Visits Authorized [id number] Pending Review 03/13/2024 09/09/2024 1 1 Referral ID Status Reason Start Date Expiration Date V isits Requested Visits Authorized [id number] Pending Review 03/13/2024 09/09/2024 1 1 Additional Source Comments Reason for Visit (unrecogniz ed section and content) Reason Comments Abdominal Pain Pt states she did a CT of her abdomin and came back abnormal, abdominal pain x2 weeks Status Reason Specialty Diagnoses / Procedures Referre d By Contact Referred To Contact Diagnoses 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) Jeannie Garcia DO [address] [place] [phone] [facility] [employer] Status Reason Specialty Diagnoses / Procedures Re ferred By Contact Referred To Contact Diagnoses Epigastric pain EPIGASTRIC PAIN Procedures GA OFFICE/OUTPT VISIT,PROCEDURE ONLY [place] ESOPHAGOGASTRODUODENOSCOPY TRANSORAL DIAGNOSTIC EGD ESOPHAGOGASTRODUODENOSCOPY Jeannie Garcia DO [address] [phone] [facility] Reason Comments Emesis pt states she has be en vomiting since a surgery for a ruptured lining during a scope Reason Comments Abdominal Pain Reason Comments Post-op Problem pt states she has an infection in her drain tubes Reason Comments New Patient Specialty Diagnoses / Procedures Referred By Clint mora Referred To Contact Neurology Diagnoses History of seizures Alissa Gibbs, CATERPILLAR MECHANIC-GARMENT FINISHER [address] [facility] [address] [place] [address] Referral ID Status Reason Start Date Expiration Date V isits Requested Visits Authorized [id number] New Request 12/29/2021 01/23/2023 1 1 Reason [...] 09/17/2024 Reason Onset Date Comments Med Refill 10/19/2024 Reason Onset Date Comments Med Refill 11/21/2024 INFORMATION SOURCE (unrecogn ized section and content) DATE CREATED AUTHOR 01/05/2020 [facility] DATE CREATED AUTHOR AUTHOR'S ORGANIZ ATION 01/07/2020 [facility] DATE CREATED AUTHOR AUTHOR'S ORGANIZ ATION 03/30/2021 [facility] DATE CREATED AUTHOR AUTHOR'S ORGANIZ ATION 01/03/2023 [facility] DATE CREATED AUTHOR AUTHOR'S ORGANIZ ATION 11/12/2023 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 Relationship Specialty Start Date End Date Lorin Mirza CNP [address] [facility] [address] [place] [address] PCP - General Nurse Practitioner - Family 12/29/21 [employer] Installer Relationship Specialty Start Date End Date Lorin Mirza CNP [address] [facility] [address] [place] [address] PCP - General Nurse Practitioner - Family 12/29/21 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 Door 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 Relationship Specialty Start Date End Date Lorin Mirza CNP [address] [facility] [address] [place] [address] PCP - General Nurse Practitioner - Family 12/29/21 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 Door 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 Relationship Specialty Start Date End Date Nona Landry DO [address] [facility] [address] [place] [address] PCP - General Family Medicine 04/02/24 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 Door Installer Relationship Specialty Start Date End Date Nona Landry DO [address] [place] [address] PCP - General Family Medicine 04/02/24 Window 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 Door Installer Relationship Specialty Start Date End Date Nona Landry DO [address] [place] [address] PCP - General Family Medicine 04/02/24 Window 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 Door Installer Relationship Specialty Start Date End Date Nona Landry DO [address] [place] [address] (Fax) PCP - General Family Medicine 04/02/24 Window And Door Installer Relationship Specialty Start Date End Date Nona Landry DO [address] [place] [address] PCP - General Family Medicine 04/02/24 Window And Door Installer Relationship Specialty Start Date End Date Nona Landry DO [address] [place] [address] (Fax) PCP - General Family Medicine 04/02/24 Window And Door Installer Relationship Specialty Start Date End Date Nona Landry DO [address] [place] [address] (Fax) PCP - General Family Medicine 04/02/24 Window And Door Installer Relationship Specialty Start Date End Date Nona Landry DO [address] [place] [address] (Fax) PCP - General Family Medicine 04/02/24 Window And Door Installer Relationship Specialty Start Date End Date Nona Landry DO [address] [place] [address] (Fax) PCP - General Family Medicine 04/02/24 Window And Door Installer Relationship Specialty Start Date End Date Nona Landry DO [address] [place] [address] PCP - [facility] 04/02/24 Window And Door Installer Relationship Specialty Start Date End Date Nona Landry DO [address] [place] [address] PCP - [facility] 04/02/24 Window And Door Installer Relationship Specialty Start Date End Date Nona Landry DO [address] [place] [address] PCP - [facility] 04/02/24 Window And Door Installer Relationship Specialty Start Date End Date Nona Landry DO [address] [place] [address] PCP - [facility] 04/02/24 FOR RECORDS PERTAINING TO PATIENTS WHO [...] BE BASED ON THE PRIMARY CLINICAL RECORDS. [facility] [employer] [facility]. provides no warranty or guarantee of the accuracy or completeness of information in this document.
[2024-12-04 08:10] LABS: Alanine Aminotransferase 33 U/L (14-59); Albumin Globulin Ratio 1.2; Albumin Level 3.6 g/dL (3.4-5.0); Alkaline Phosphatase 71 U/L (46-116); Anion Gap 13.2; Aspartate Amino Transferase 24 U/L (15-37); BUN Creatinine Ratio 10.1; Bilirubin Total 0.4 mg/dL (0.2-1.0); Calcium 8.8 mg/dL (8.5-10.1); Carbon Dioxide 26.9 mmol/L (21.0-32.0); Chloride 106 mmol/L (98-107); Estimated GFR (African America >60 (>=60 mL/min/1.73m^2); Estimated GFR (Non-African Ame >60 (>=60 mL/min/1.73m^2); Glucose 88 mg/dL (74-106); Potassium 4.1 mmol/L (3.5-5.1); Sodium 142 mmol/L (136-145); Total Protein 6.6 g/dL (6.4-8.2)
[2024-12-04 08:41] LABS: Percent Iron Saturation 37.5 %
[2024-12-05 04:07] LABS: Vitamin B12 446 pg/mL (232-1245)
[2024-12-05 05:07] LABS: Transferrin 206 mg/dL (192-364)
== END 2024-12-04 07:18 | disposition home or self-care (01) ==
LOC: LAB 07:18
PROVIDERS: PCP Family Medicine; Visit Provider Physician Assistant Medical
DX: M62.838 Other muscle spasm (principal)
CPT/HCPCS: 36415; 80053; 82607; 82728; 82746; 83540; 83550; 83735; 84466